=== PATIENT | female | born 1950 | race Caucasian/White ===

== ENCOUNTER 2016-11-13 16:24 | Emergency (ER) | payer MEDICARE, OTHER ==
[2016-11-13 16:43] VITALS: RESP 18
--- NOTE | 2016-11-13 17:01 | ED ---
[id number] 4d Ankle Injury Time Seen by Provider: 11/13/16 16:37 Source: patient, RN notes reviewed Mode of arrival: wheelchair Limitations: no limitations - History of Present Illness Initial comments: 65-year-old female presents today after a fall around 1 or 2 AM this morning. Patient states she did not feel dizzy or lose consciousness. Patient states she fell approximately "7 times "and hit her head. Patient states she now has a headache and has vomited twice since the fall. Patient states the only new medication she's been on is Macrobid. Patient also complains of headache and nausea. Patient denies any neck pain but states she has chronic back pain that is not worse after the fall. Patient also complains of left ankle pain. Patient has been able to bear some weight on the ankle but this is painful. Patient denies any numbness/weakness or tingling to the left lower extremity. Patient has noticed some swelling to the left lower extremity. Patient denies any recent fever, chills, shortness breath, chest pain, abdominal pain, diarrhea , back pain, numbness, tingling, hematuria, or visual changes, or any other complaints. - Related Data Home Medications Medication Instructions Recorded Confirmed Albuterol Inhaler [Ventolin Hfa 2 puff INHALATION RT-Q6H PRN 01/09/15 11/13/16 Inhaler] Gabapentin [Neurontin] 300 mg PO TID 01/09/15 11/13/16 Atorvastatin [Lipitor] 40 mg PO HS 03/14/16 11/13/16 Desvenlafaxine Succinate [Pristiq 50 mg PO DAILY 03/14/16 11/13/16 ER] amLODIPine [Norvasc] 5 mg PO DAILY 03/14/16 11/13/16 traZODone HCL 300 mg PO HS 03/14/16 11/13/16 Atenolol [Tenormin] 50 mg PO DAILY 11/13/16 11/13/16 Doxycycline Hyclate 100 mg PO BID 11/13/16 11/13/16 Isosorbide Mononitrate [Isosorbide 30 mg PO AC-BRKFST 11/13/16 11/13/16 Mononitrate ER] Nitrofurantoin Monohyd/M-Cryst 100 mg PO BID 11/13/16 11/13/16 [Nitrofurantoin Person-Mcr 100 mg] Potassium Gluconate 550 mg PO DAILY 11/13/16 11/13/16 predniSONE 10 mg PO AC-BRKFST 11/13/16 11/13/16 Previous Rx's Medication Instructions Recorded Omeprazole [PriLOSEC] 20 mg PO -BRKFST #60 capsule. 01/10/15 Aspirin 81 mg PO DAILY #1 chewable 07/23/15 Allergies Allergy/AdvReac Type Severity Reaction Status Date / Time cephalexin monohydrate Allergy Rash/Hives Verified 11/13/16 16:43 [From Keflex] ciprofloxacin [From Cipro] Allergy Swelling Verified 11/13/16 16:43 ciprofloxacin HCl Allergy Swelling Verified 11/13/16 16:43 [From Cipro] latex Allergy Rash/Hives Verified 11/13/16 16:43 oxytetracycline Allergy Rash/Hives Verified 11/13/16 16:43 [From Terramycin] oxytetracycline HCl Allergy Rash/Hives Verified 11/13/16 16:43 [From Terramycin] Penicillins Allergy Rash/Hives Verified 11/13/16 16:43 quetiapine fumarate Allergy Rash/Hives Verified 11/13/16 16:43 [From Seroquel] Sulfa (Sulfonamide Allergy Rash/Hives Verified 11/13/16 16:43 Antibiotics) Review of Systems ROS Statement: Those systems with pertinent positive or pertinent negative responses have been documented in the HPI. ROS Other: All systems not noted in ROS Statement are negative. 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 lt foot fx/casted. For past 7 weeks has had trouble falling/staying asleep.pt stated has short term memory loss and early dementia.meralgia paresthetica. 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 clausterphobia Past Psychological History: Anxiety, Depression Additional Psychological History / Comment(s): pt lives in [facility] with 1 cat. pt uses a wheeled walker or a cane.can drive but has no car so she takes the bus. used to get meals on wheels but stopped and [employer] sends someone to do house cleaning. pt has a counselor from [employer] that comes to home once a week. Smoking Status: Current every day smoker Past Alcohol Use History: None Reported Additional Past Alcohol Use History / Comment(s): started smoking at age 15 or 16 smokes 1ppd,declined smoking cessation booklet,stated said he would order a patch. pt stated used to drink but quit [id number] any recreational drug use past or present. Past Drug Use History: None Reported - Past Family History Mother Additional Family Medical History / Comment(s): was pretty healthy, did have varicose veins and" stem cell disease" Father Family Medical History: Congestive Heart Failure (CHF), Myocardial Infarction ( [place]) General Exam - General Exam Comments Initial Comments: General: The patient is awake and alert, in no distress, and does not appear acutely ill. Eye: Pupils are equal, round and reactive to light, extra-ocular movements are intact. No nystagmus. There is normal conjunctiva bilaterally. No signs of icterus. Neck: No cervical midline tenderness. The neck is supple, there is no tenderness or JVD. Cardiovascular: There is a regular rate and rhythm. No murmur, rub or gallop is appreciated. Respiratory: Faint wheezes heard throughout, respirations are non-labored, breath sounds are equal. No wheezes, stridor, rales, or rhonchi. Musculoskeletal: There is tenderness to palpation over the lateral and medial malleoli of the left ankle. There is localized swelling to this area as well. Patient is also tender to palpation over the lateral aspect of the left foot. Capillary refill is normal at less than 2 seconds. Normal ROM, Strength 5/5. Sensation intact. Radial and posterior tibial pulses equal bilaterally 2+. Neurological: A&O x 3. CN II-XII intact, There are no obvious motor or sensory deficits. Coordination appears grossly intact. Speech is normal. Skin: Localized swelling over the left ankle joint. Skin is warm and dry and no rashes or lesions are noted. Psychiatric: Cooperative, appropriate mood & affect, normal judgment. Limitations: no limitations Course Vital Signs 11/13/16 11/13/16 16:41 18:55 Temperature 97.7 F 98.7 F Pulse Rate 91 85 Respiratory 18 18 Rate Blood Pressure 174/79 146/69 O2 Sat by Pulse 95 98 Oximetry Medical Decision Making - Medical Decision Making This is a 65-year-old female presents after a fall. On physical exam, patient is neurologically intact. Patient is answering questions appropriately. There is tenderness to palpation over the lateral and medial malleoli of the left ankle. There is localized swelling to this area as well. Patient is also tender to palpation over the lateral aspect of the left foot. Capillary refill is normal at less than 2 seconds. Normal ROM, Strength 5/5. Sensation intact. Radial and posterior tibial pulses equal bilaterally 2+. A CT of the brain and C-spine were done due to complaints of nausea, vomiting and headache after a fall early this morning. CT was done and reviewed showing : #1 there is no acute fracture or dislocation evident in the cervical spine. #2 no acute intracranial hemorrhage, mass effect, or midline shift is seen. Reports read by Dr. Natarajan X-rays of the left foot and ankle were done and reviewed showing: X-ray left foot: Negative for fracture or malalignment. X-ray left ankle: Negative for fracture or malalignment. Reports read by Dr. Natarajan I reviewed the x-rays myself along with attending physician Dr. Reza and there is no sign of fracture or dislocation. Patient is given an Abran wrap in the EC today. Patient was given a prescription for an Aircast to the left lower extremity. Discussed rest, ice, elevate and use Aircast for support while up and walking. I discussed [id number] Tylenol and or Motrin as needed for any pain. I discussed return parameters. I discussed close follow-up with pcp in the next 1 -2 days or return to the EC for any worsening symptoms or for any further concerns. If symptoms do not improve in the next 7 days please follow up for repeat x-ray to rule out occult fracture.Patient and friend who was also present in the room were receptive to this plan the patient will be discharged home. Disposition Clinical Impression: Ankle sprain, Head injury Disposition: HOME SELF-CARE Condition: Good Instructions: Ankle Sprain (ED) Additional Instructions: Please rest, ice, elevate and use air cast for support while up and walking. Weightbearing as tolerated to the left lower extremity. Over the counter tylenol and/or Motrin as needed for any pain. Please use medication as discussed. Please follow-up with family doctor in the next 2 days of symptoms have not improved. Please return to emergency room if the symptoms increase or worsen or for any other concerns. Referrals: Kristy Aceves MD [Primary Care Provider] - 1-2 days Time of Disposition: 18:44
--- NOTE | 2016-11-13 17:59 | CT ---
EXAMINATION TYPE: CT brain daily wo con DATE OF EXAM: 11/13/2016 5:35 PM COMPARISON: NONE HISTORY: Patient complains of headache, dizziness, nausea, and vomit ting post fall today. CT DLP: 1167.1 mGycm Automated exposure control for dose reduction was used. TECHNIQUE: CT scan of the head and cervical spine are performed without contrast. FINDINGS: There is no acute intracranial hemorrhage, mass effect, or midline shift identified. The ventricles and sulci are within normal limits in size. The globes are intact and the visualized sin uses are clear. Cervical spine is visualized in its entirety from C1 through upper thoracic levels and demonstrates s atisfactory alignment without evidence of acute fracture or dislocation. Prevertebral soft tissue ap pears within normal limits. The C1-C2 articulation is unremarkable. IMPRESSION: 1. There is no acute fracture or dislocation evident in the cervical spine. 2. No acute intracranial hemorrhage, mass effect, or midline shift is seen.
[2016-11-13 18:55] VITALS: BP 146/69; PULSE 85; TEMP 98.7
--- NOTE | 2016-11-13 19:12 | XR ---
EXAMINATION TYPE: XR foot complete LT DATE OF EXAM: 11/13/2016 5:23 PM COMPARISON: NONE HISTORY: Pain after trauma TECHNIQUE: 3 views FINDINGS: The bones and joints and soft tissues are negative for acute findings. IMPRESSION: Negative for fracture or malalignment.
--- NOTE | 2016-11-13 19:13 | XR ---
EXAMINATION TYPE: XR ankle complete LT DATE OF EXAM: 11/13/2016 5:23 PM COMPARISON: NONE HISTORY: Pain after trauma TECHNIQUE: 3 views FINDINGS: There is anterolateral soft tissue swelling, but the bones and joints are unremarkable. IMPRESSION: Negative for fracture or malalignment.
== END 2016-11-13 18:56 | disposition home or self-care (01) ==
LOC: EC 16:24
DX: S09.90XA Unspecified injury of head, initial encounter (principal); S93.402A Sprain of unspecified ligament of left ankle, initial encounter; W19.XXXA Unspecified fall, initial encounter; I48.91 Unspecified atrial fibrillation; M79.7 Fibromyalgia; M17.0 Bilateral primary osteoarthritis of knee; F32.9 Major depressive disorder, single episode, unspecified; Z79.82 Long term (current) use of aspirin; Z79.899 Other long term (current) drug therapy; Z79.52 Long term (current) use of systemic steroids; Z88.0 Allergy status to penicillin; Z88.2 Allergy status to sulfonamides; Z88.8 Allergy status to other drugs, medicaments and biological substances; Z88.1 Allergy status to other antibiotic agents; Z91.040 Latex allergy status; F17.200 Nicotine dependence, unspecified, uncomplicated
CPT/HCPCS: 70450; 72125; 99284

== ENCOUNTER → 2017-01-11 | Outpatient (CLI) | payer MEDICARE, OTHER ==
[2017-01-11 12:42] LABS: Basophils # (A) 0.2 k/uL (0-0.2); Basophils % (A) 2 %; CH 28.6; CHCM 33.3; Eosinophils % (A) 0 %; HDW 2.96; HGB 12.7 gm/dL (11.4-16.0); Luc % (Auto) 1; Lymphocytes # (A) 1.5 k/uL (1.0-4.8); Lymphocytes % (A) 18 %; MCH 28.7 pg (25.0-35.0); MCHC 33.3 g/dL (31.0-37.0); MCV 86.2 fL (80.0-100.0); Mean Platelet Volume 8.4; Monocytes # (A) 0.4 k/uL (0-1.0); Monocytes % (A) 4 %; Neutrophils # (A) 6.3 k/uL (1.3-7.7); Neutrophils % (A) 75 %; RBC 4.41 m/uL (3.80-5.40); RDW 14.1 % (11.5-15.5); WBC 8.4 k/uL (3.8-10.6); WBC (Perox) 8.86
[2017-01-11 12:48] LABS: ALT 29 U/L (9-52); AST 13 U/L (14-36); Alkaline Phosphatase 86 U/L (38-126); Anion Gap 8 mmol/L; Blood Urea Nitrogen 20 mg/dL (7-17); Calcium 9.7 mg/dL (8.4-10.2); Carbon Dioxide 27 mmol/L (22-30); Chloride 107 mmol/L (98-107); Glucose 100 mg/dL (74-99); Non-African American GFR(MDRD) 55 (>60 ml/min/1.73 sqM); Potassium 4.3 mmol/L (3.5-5.1); Sodium 142 mmol/L (137-145); Total Bilirubin 0.9 mg/dL (0.2-1.3); Total Protein 6.4 g/dL (6.3-8.2)
--- NOTE | 2017-01-12 08:45 | MM ---
Reason for exam: screening (asymptomatic). Last mammogram was performed 12 years and 9 months ago. History: Patient is postmenopausal. Physical Findings: A clinical breast exam by your physician is recommended on an annual basis and results should be correlated with mammographic findings. MG 3D Screening Mammo W/Cad Bilateral CC and MLO view(s) were taken. No prior studies available for comparison. There are scattered fibroglandular densities. There is no discrete abnormality. ASSESSMENT: Negative, BI-RAD 1 RECOMMENDATION: Routine screening mammogram of both breasts in 1 year.
== END | disposition home or self-care (01) ==
LOC: LABWHC1 11:01
PROVIDERS: ATTEND Internal Medicine
DX: Z12.31 Encounter for screening mammogram for malignant neoplasm of breast (principal); Z00.00 Encounter for general adult medical examination without abnormal findings
CPT/HCPCS: 80053; 85025; 77063; 36415; G0202

== ENCOUNTER → 2017-01-15 | Outpatient (CLI) | payer MEDICARE, OTHER | LOC: LABWHC1 10:40 | PROVIDERS: ATTEND Internal Medicine | DX: Z00.00 Encounter for general adult medical examination without abnormal findings (principal) | CPT/HCPCS: 36415; 80061; 84443 ==

== ENCOUNTER 2017-04-18 01:56 | Emergency (ER) | payer MEDICARE, OTHER ==
[2017-04-18 02:04] VITALS: BP 133/63; PULSE 87; RESP 18; TEMP 98.5
--- NOTE | 2017-04-18 02:23 | ED ---
Female Urogenital HPI - General Chief complaint: Vaginal Bleeding Stated complaint: Rectal bleeding Time Seen by Provider: 04/18/17 02:01 Source: EMS, RN notes reviewed Mode of arrival: EMS Limitations: no limitations - History of Present Illness Initial comments: 66-year-old male presents for a abscess to the groin area. Patient states she' s had it for a day or 2 now and today she noticed that there is bright red blood from the area so she was concerned. Patient denies any fever chills cough cold runny nose. Patient states tender to touch. Patient denies any history of this before. Patient denies any falls traumas or injuries. Patient states she was concerned due to her symptoms so she thought that she should be seen. Patient denies any recent fever, chills, shortness of breath, chest pain, back pain, abdominal pain, nausea vomiting, numbness or tingling, dysuria or hematuria, constipation or diarrhea, headaches or visual changes, or any other current symptoms. - Related Data Home Medications Medication Instructions Recorded Confirmed Albuterol Inhaler [Ventolin Hfa 2 puff INHALATION RT-Q6H PRN 01/09/15 11/13/16 Inhaler] Gabapentin [Neurontin] 300 mg PO TID 01/09/15 11/13/16 Atorvastatin [Lipitor] 40 mg PO HS 03/14/16 11/13/16 Desvenlafaxine Succinate [Pristiq 50 mg PO DAILY 03/14/16 11/13/16 ER] amLODIPine [Norvasc] 5 mg PO DAILY 03/14/16 11/13/16 traZODone HCL 300 mg PO HS 03/14/16 11/13/16 Atenolol [Tenormin] 50 mg PO DAILY 11/13/16 11/13/16 Doxycycline Hyclate 100 mg PO BID 11/13/16 11/13/16 Isosorbide Mononitrate [[facility] [address] [facility] 11/13/16 11/13/16 Mononitrate ER] Nitrofurantoin Monohyd/M-Cryst 100 mg PO BID 11/13/16 11/13/16 [Nitrofurantoin Saunders-Mcr 100 mg] Potassium Gluconate 550 mg PO DAILY 11/13/16 11/13/16 predniSONE 10 mg PO -BRKFST 11/13/16 11/13/16 Previous Rx's Medication Instructions Recorded Omeprazole [PriLOSEC] 20 mg PO QUEBRKFST #60 capsule. 01/10/15 Aspirin 81 mg PO DAILY #1 chewable 07/23/15 Clindamycin [Cleocin] 300 mg PO Q8HR 7 Days 04/18/17 Allergies Allergy/AdvReac Type Severity Reaction Status Date / Time cephalexin monohydrate Allergy Rash/Hives Verified 11/13/16 16:43 [From Keflex] ciprofloxacin [From Cipro] Allergy Swelling Verified 11/13/16 16:43 ciprofloxacin HCl Allergy Swelling Verified 11/13/16 16:43 [From Cipro] latex Allergy Rash/Hives Verified 11/13/16 16:43 oxytetracycline Allergy Rash/Hives Verified 11/13/16 16:43 [From Terramycin] oxytetracycline HCl Allergy Rash/Hives Verified 11/13/16 16:43 [From Terramycin] Penicillins Allergy Rash/Hives Verified 11/13/16 16:43 quetiapine fumarate Allergy Rash/Hives Verified 11/13/16 16:43 [From Seroquel] Sulfa (Sulfonamide Allergy Rash/Hives Verified 11/13/16 16:43 Antibiotics) Review of Systems ROS Statement: Those systems with pertinent positive or pertinent negative responses have been documented in the HPI. ROS Other: All systems not noted in ROS Statement are negative. 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 lt foot fx/casted. For past 7 weeks has had trouble falling/staying asleep.pt stated has short term memory loss and early dementia.meralgia paresthetica. 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 clausterphobia Past Psychological History: Anxiety, Depression Additional Psychological History / Comment(s): [facility]. pt uses a wheeled walker or a cane.can drive but has no car so she takes the bus. used to get meals on wheels but stopped and [employer] [facility] [employer] sends someone to do house cleaning. pt has a counselor from [employer] that comes to home once a week. Smoking Status: Current every day smoker Past Alcohol Use History: None Reported Additional Past Alcohol Use History / Comment(s): started smoking at age 15 or 16 smokes 1ppd,declined smoking cessation booklet,stated dr said he would order a patch. pt stated used to drink but quit [id number] any recreational drug use past or present. Past Drug Use History: None Reported - Past Family History Mother Additional Family Medical History / Comment(s): was pretty healthy, did have varicose veins and" stem cell disease" Father Family Medical History: Congestive Heart Failure (CHF), Myocardial Infarction ( [place]) General Exam Limitations: no limitations General appearance: alert, in no apparent distress Eye exam: Present: normal appearance, PERRL, EOMI. Absent: scleral icterus, conjunctival injection, periorbital swelling ENT exam: Present: normal exam, mucous membranes moist Respiratory exam: Present: normal lung sounds bilaterally. Absent: respiratory distress, wheezes, rales, rhonchi, stridor Cardiovascular Exam: Present: regular rate, normal rhythm, normal heart sounds. Absent: systolic murmur, diastolic murmur, rubs, gallop, clicks GI/Abdominal exam: Present: soft, normal bowel sounds. Absent: distended, tenderness, guarding, rebound, rigid External exam: Present: lesions (Abscess to the left lower labia.). Absent: erythema, swelling Extremities exam: Present: normal inspection, full ROM, normal capillary refill. Absent: tenderness, pedal edema, joint swelling, calf tenderness Neurological exam: Present: alert, oriented X3 Psychiatric exam: Present: normal affect, normal mood Skin exam: Present: warm, dry, intact, normal color. Absent: rash Course Vital Signs 04/18/17 01:58 Temperature 98.5 F Pulse Rate 87 Respiratory 18 Rate Blood Pressure 133/63 O2 Sat by Pulse 96 Oximetry Procedures - Procedures Initial comment: Procedure: Incision and drainage The skin overlying the abscess was prepped with Betadine, and anesthetized with 1% lidocaine without epinephrine. A #11 scalpel was then used to incise the abscess. Some purulent material was then extracted from the lesion. Gauze dressing placed on top, The patient tolerated the procedure well. Medical Decision Making - Medical Decision Making 66-year-old female presents for abscess to left flank area. This time patient underwent I&D of the area. We will start her on antibiotics. discussed Close follow-up with her Dr. return parameters and all the questions. She stated that she understood and she is in agreement with plan. This time she will be discharged home. Disposition Clinical Impression: Labial abscess Disposition: HOME SELF-CARE Condition: Stable Instructions: Abscess (ED) Additional Instructions: Please use medication as discussed. Please follow up with family doctor if symptoms have not improved over the next two days. Please return to the emergency room if your symptoms increase or worsen or for any other concerns. Prescriptions: Clindamycin [Cleocin] 300 mg PO Q8HR 7 Days Referrals: Yandy Brito MD [Primary Care Provider] - 1-2 days Time of Disposition: 02:22
[2017-04-18] MEDS ORDERED: CLINDAMYCIN 150 MG CAP PO STA (02:24)
== END 2017-04-18 02:46 | disposition home or self-care (01) ==
LOC: EC 01:56
DX: N76.4 Abscess of vulva (principal); F32.9 Major depressive disorder, single episode, unspecified; F17.200 Nicotine dependence, unspecified, uncomplicated; Z90.49 Acquired absence of other specified parts of digestive tract; Z88.1 Allergy status to other antibiotic agents; Z88.2 Allergy status to sulfonamides; Z88.0 Allergy status to penicillin; Z91.040 Latex allergy status; Z88.8 Allergy status to other drugs, medicaments and biological substances; Z79.899 Other long term (current) drug therapy
CPT/HCPCS: 56405; 99284

== ENCOUNTER → 2017-06-14 | Outpatient (CLI) | payer MEDICARE, OTHER ==
--- NOTE | 2017-06-15 17:09 | ECHOF ---
Referral Reason:Pericardial Effusion I31.3 MEASUREMENTS -------- HEIGHT: 165.1 cm WEIGHT: 90.3 kg BP: RVIDd: 2.5 cm (< 3.3) IVSd: 1.4 cm (0.6 - 1.1) LVIDd: 3.8 cm (3.9 - 5.3) LVPWd: 1.4 cm (0.6 - 1.1) IVSs: 1.9 cm LVIDs: 2.9 cm LVPWs: 1.9 cm LAESV Index (A-L): 11.08 ml/m Ao Diam: 2.7 cm (2.0 - 3.7) AV Cusp: 0.9 cm (1.5 - 2.6) LA Diam: 2.3 cm (2.7 - 3.8) MV E Kaleb: 1.50 m/s MV DecT: 299 ms MV A Kaleb: 0.98 m/s MV E/A Ratio: 1.54 RAP: 5.00 mmHg RVSP: 24.59 mmHg FINDINGS -------- Resting bradycardia (HR<60bpm). This was a technically difficult study with suboptimal views. Patient refused Definity. There is mild concentric left ventricular hypertrophy. Overall left ventricular systolic function is normal with, an EF between 60 - 65 %. The right ventricle is normal in size and function. Normal LA size by volume 22+/-6 ml/m2. The right atrium is normal in size. Aortic valve is trileaflet and is mildly thickened. There is no evidence of aortic regurgitation. There is no evidence of aortic stenosis. Mild mitral annular calcification present. There is trace to mild mitral regurgitation. Trace tricuspid regurgitation present. There is no evidence of pulmonary hypertension. The right ventricular systolic pressure, as measured by Doppler, is 24.59mmHg. The pulmonic valve was not well visualized. The aortic root size is normal. Normal inferior vena cava with normal inspiratory collapse consistent with estimated right atrial pressure of 5 mmHg. There is a trivial pericardial effusion present. CONCLUSIONS -------- 1. Resting bradycardia (HR<60bpm). 2. The right ventricular systolic pressure, as measured by Doppler, is 24.59mmHg. 3. The pulmonic valve was not well visualized. 4. The aortic root size is normal. 5. There is a trivial pericardial effusion present. 6. This was a technically difficult study with suboptimal views. 7. Patient refused Definity due to pain. 8. There is mild concentric left ventricular hypertrophy. 9. Overall left ventricular systolic function is normal with, an EF between 60 - 65 %. 10. Normal LA size by volume 22+/-6 ml/m2. 11. Aortic valve is trileaflet and is mildly thickened. 12. Trace tricuspid regurgitation present. 13. There is no evidence of pulmonary hypertension. COMPUTING CONSULTANT: Jt Pedroza RDCS
== END | disposition home or self-care (01) ==
LOC: RADECHMAIN 15:14
PROVIDERS: ATTEND Internal Medicine
DX: I31.3 Pericardial effusion (noninflammatory) (principal); R00.1 Bradycardia, unspecified; I07.1 Rheumatic tricuspid insufficiency
CPT/HCPCS: 93306

== ENCOUNTER 2017-08-11 20:09 | Emergency (ER) | payer MEDICARE, OTHER ==
[2017-08-11] MEDS ORDERED: IPRATROPIUM-ALBUTEROL 3 ML NEB INHALATION STA (20:17)
[2017-08-11] MEDS ORDERED: methylPREDNISolone SOD SUCCI 125 MG/2 ML VIAL IV STA (20:18)
[2017-08-11] MEDS ORDERED: SODIUM CHLORIDE 0.9% 500 ML IV STA (20:22)
--- NOTE | 2017-08-11 20:22 | ED ---
Chest Pain HPI - General Chief Complaint: Chest Pain Stated Complaint: Chest Pain Time Seen by Provider: 08/11/17 20:09 Source: patient, EMS, RN notes reviewed, old records reviewed Mode of arrival: EMS Limitations: no limitations - History of Present Illness Initial Comments: This is a 66-year-old female history of heart disease stroke and chronic bronchitis who presents by EMS with complaints of the onset of intermittent right-sided chest pain about 6 hours ago. She states is been on off since then is sharp in nature. It does get worse with deep breathing and movement. She did take 2 nitroglycerin at home without relief she was given nitroglycerin as well as aspirin by EMS without relief. She does have a chronic cough of some slight phlegm she denies any overt fevers chills or sweats. No other symptoms reported at this time. Patient is a smoker and continues to smoke. Patient does state that the pain radiates from the right chest to the back area. MD Complaint: chest pain - Related Data Home Medications Medication Instructions Recorded Confirmed Albuterol Inhaler [Ventolin Hfa 2 puff INHALATION RT-Q6H PRN 01/09/15 11/13/16 Inhaler] Gabapentin [Neurontin] 300 mg PO TID 01/09/15 11/13/16 Atorvastatin [Lipitor] 40 mg PO HS 03/14/16 11/13/16 Desvenlafaxine Succinate [Pristiq 50 mg PO DAILY 03/14/16 11/13/16 ER] amLODIPine [Norvasc] 5 mg PO DAILY 03/14/16 11/13/16 traZODone HCL 300 mg PO HS 03/14/16 11/13/16 Atenolol [Tenormin] 50 mg PO DAILY 11/13/16 11/13/16 Doxycycline Hyclate 100 mg PO BID 11/13/16 11/13/16 Isosorbide Mononitrate [Isosorbide 30 mg PO -BRKFST 11/13/16 11/13/16 Mononitrate ER] Nitrofurantoin Monohyd/M-Cryst 100 mg PO BID 11/13/16 11/13/16 [Nitrofurantoin [place]-Mcr 100 mg] Potassium Gluconate 550 mg PO DAILY 11/13/16 11/13/16 predniSONE 10 mg PO AC-BRKFST 11/13/16 11/13/16 Previous Rx's Medication Instructions Recorded Omeprazole [PriLOSEC] 20 mg PO AC-BRKFST #60 capsule. 01/10/15 Aspirin 81 mg PO DAILY #1 chewable 07/23/15 Clindamycin [Cleocin] 300 mg PO Q8HR 7 Days 04/18/17 predniSONE 20 mg PO BID #10 tab 08/11/17 Allergies Allergy/AdvReac Type Severity Reaction Status Date / Time cephalexin monohydrate Allergy Rash/Hives Verified 08/11/17 20:18 [From Keflex] ciprofloxacin [From Cipro] Allergy Swelling Verified 08/11/17 20:18 latex Allergy Rash/Hives Verified 08/11/17 20:18 oxytetracycline Allergy Rash/Hives Verified 08/11/17 20:18 [From Terramycin] Penicillins Allergy Rash/Hives Verified 08/11/17 20:18 quetiapine fumarate Allergy Rash/Hives Verified 08/11/17 20:18 [From Seroquel] Sulfa (Sulfonamide Allergy Rash/Hives Verified 08/11/17 20:18 Antibiotics) Review of Systems ROS Statement: Those systems with pertinent positive or pertinent negative responses have been documented in the HPI. ROS Other: All systems not noted in ROS Statement are negative. EKG Findings - EKG Results: EKG: interpreted by DANG, sinus rhythm (Sinus tachycardia with a rate of 118. Interval 146 QRS duration 84 QT since QTC of 332/[address] T-wave configuration.) Past Medical History Past Medical History: Atrial Fibrillation, Dementia, Fibromyalgia, Memory Impairment, Osteoarthritis (OA) Additional Past Medical History / Comment(s): hiatal hernia, osteoporsis, ostoearthritis in knees and hip,neuropathy, headaches; PT STATES SHE DOES HAVE A HX OF AFIB BUT DENIES TAKING ANY COUMADIN OR BLOOD THINNERS AT THIS TIME. lt foot fx/casted. For past 7 weeks has had trouble falling/staying asleep.pt stated has short term memory loss and early dementia.meralgia paresthetica. 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 clausterphobia Past Psychological History: Anxiety, Depression Smoking Status: Current every day smoker Past Alcohol Use History: None Reported Past Drug Use History: None Reported - Past Family History Mother Additional Family Medical History / Comment(s): was pretty healthy, did have varicose veins and" stem cell disease" Father Family Medical History: Congestive Heart Failure (CHF), Myocardial Infarction ( [place]) General Exam - General Exam Comments Initial Comments: This is a well-developed well-nourished awake alert oriented 3 female Limitations: no limitations General appearance: alert, in no apparent distress Head exam: Present: atraumatic, normocephalic, normal inspection Eye exam: Present: normal appearance, PERRL, EOMI. Absent: scleral icterus, conjunctival injection, periorbital swelling ENT exam: Present: normal exam, mucous membranes moist Neck exam: Present: normal inspection. Absent: tenderness, meningismus, lymphadenopathy Respiratory exam: Present: chest wall tenderness (Reproducible tenderness palpation along the right costosternal margin), decreased breath sounds. Absent : respiratory distress, wheezes, rales, rhonchi, stridor Cardiovascular Exam: Present: regular rate, normal rhythm, normal heart sounds. Absent: systolic murmur, diastolic murmur, rubs, gallop, clicks GI/Abdominal exam: Present: soft, normal bowel sounds. Absent: distended, tenderness, guarding, rebound, rigid Extremities exam: Present: normal inspection, full ROM, normal capillary refill. Absent: tenderness, pedal edema, joint swelling, calf tenderness Back exam: Present: normal inspection Neurological exam: Present: alert, oriented X3, CN II-XII intact Psychiatric exam: Present: normal affect, normal mood Skin exam: Present: warm, dry, intact, normal color. Absent: rash Course Vital Signs 08/11/17 08/11/17 08/11/17 20:15 20:23 20:36 Temperature 97.6 F Pulse Rate 122 H 117 H 115 H Respiratory 20 16 16 Rate Blood Pressure 155/89 O2 Sat by Pulse 96 Oximetry 08/11/17 21:09 Temperature Pulse Rate Respiratory 20 Rate Blood Pressure O2 Sat by Pulse Oximetry - Reevaluation(s) Reevaluation #1: 08/11/17 20:29 I did review an EKG dated 03/15/2016 syncope. States today is some evidence of strain pattern in the inferior and lateral leads. Reevaluation #2: 08/11/17 21:08 We did have a discussion regarding smoking cessation and risks and benefits thereof. The total conversation lasting 3.1 minutes Chest Pain MDM - MDM I did review the imaging and reports no acute findings. Patient is so much improved at this time she does states she normally has a fast heart rate a heart rate she currently has is in her normal range she states. She'll be discharged she does have an inhaler at home she states she did adamantly to be using it today she will be placed on some oral steroids. Disposition Clinical Impression: Chest wall syndrome, Costalchondritis, Acute bronchospasm Disposition: HOME SELF-CARE Condition: Good Instructions: Costochondritis (ED), Bronchospasm (ED) Prescriptions: predniSONE 20 mg PO BID #10 tab Referrals: Yandy Brito MD [Primary Care Provider] - 1-2 days
[2017-08-11 20:30] LABS: Basophils % (A) 0 %; CH 29.4; CHCM 34.3; Eosinophils % (A) 0 %; HCT 45.6 % (34.0-46.0); HDW 2.83; HGB 14.6 gm/dL (11.4-16.0); Luc # (Auto) 0.05; Luc % (Auto) 1; Lymphocytes # (A) 1.4 k/uL (1.0-4.8); Lymphocytes % (A) 18 %; MCH 27.6 pg (25.0-35.0); MCV 86.1 fL (80.0-100.0); Mean Platelet Volume 8.3; Monocytes # (A) 0.4 k/uL (0-1.0); Monocytes % (A) 5 %; Neutrophils # (A) 6.1 k/uL (1.3-7.7); Neutrophils % (A) 77 %; RBC 5.29 m/uL (3.80-5.40); WBC (Perox) 7.79
[2017-08-11 20:43] LABS: ALT 27 U/L (9-52); AST 14 U/L (14-36); Alkaline Phosphatase 91 U/L (38-126); Anion Gap 13 mmol/L; Blood Urea Nitrogen 19 mg/dL (7-17); Calcium 9.8 mg/dL (8.4-10.2); Carbon Dioxide 23 mmol/L (22-30); Chloride 104 mmol/L (98-107); Glucose 163 mg/dL (74-99); Magnesium 1.8 mg/dL (1.6-2.3); Non-African American GFR(MDRD) >60 (>60 ml/min/1.73 sqM); Potassium 3.9 mmol/L (3.5-5.1); Sodium 140 mmol/L (137-145); Total Bilirubin 0.8 mg/dL (0.2-1.3)
[2017-08-11 20:44] LABS: INR 1.1 (<1.2); Partial Thromboplastin Time 23.6 sec (22.0-30.0); Prothrombin Time 10.7 sec (9.0-12.0)
[2017-08-11 20:49] LABS: Creatine Kinase 23 U/L (30-135)
[2017-08-11 21:02] LABS: Creatine Kinase MB 0.4 ng/mL (0.0-2.4); Troponin I <0.012 ng/mL (0.000-0.034)
--- NOTE | 2017-08-11 21:15 | XR ---
EXAMINATION TYPE: XR chest 2V DATE OF EXAM: 08/11/2017 COMPARISON: 03/14/2016 INDICATION: Chest pain TECHNIQUE: Frontal and lateral views of the chest are obtained. FINDINGS: The heart size is normal. The pulmonary vasculature is normal. The lungs are clear. IMPRESSION: 1. No acute pulmonary process.
[2017-08-11 21:39] VITALS: BP 167/75; PULSE 111; RESP 18; TEMP 98
== END 2017-08-11 21:49 | disposition home or self-care (01) ==
LOC: EC 20:09
DX: J98.01 Acute bronchospasm (principal); M94.0 Chondrocostal junction syndrome [Tietze]; M54.9 Dorsalgia, unspecified; M79.7 Fibromyalgia; M17.0 Bilateral primary osteoarthritis of knee; M16.10 Unilateral primary osteoarthritis, unspecified hip; F32.9 Major depressive disorder, single episode, unspecified; F41.9 Anxiety disorder, unspecified; F17.200 Nicotine dependence, unspecified, uncomplicated; Z79.52 Long term (current) use of systemic steroids; Z79.899 Other long term (current) drug therapy; Z88.0 Allergy status to penicillin; Z88.1 Allergy status to other antibiotic agents; Z88.2 Allergy status to sulfonamides; Z88.8 Allergy status to other drugs, medicaments and biological substances
CPT/HCPCS: 99285; 96374; 36415; 94640; 93005; 85379; 83880; 80053; 82550; 82553; 83735; 84484; 85025; 85610; 85730; 71020; J2930

== ENCOUNTER 2017-09-25 13:06 | Emergency (ER) | payer MEDICARE, OTHER ==
[2017-09-25 13:11] VITALS: RESP 18
[2017-09-25] MEDS ORDERED: ACETAMINOPHEN TAB 500 MG TAB PO STA (14:12)
[2017-09-25] MEDS ORDERED: MORPHINE SULFATE 10 MG/ML SYRINGE IVP STA (14:13)
[2017-09-25] MEDS ORDERED: ONDANSETRON 4 MG/2 ML VIAL IVP STA (14:13)
[2017-09-25] MEDS ORDERED: RX INFO: IV CONTRAST WAS GIVEN 1 EACH MISC MISCELLANE PRN (14:13)
--- NOTE | 2017-09-25 14:18 | ED ---
Abdominal Pain HPI - General Chief Complaint: Abdominal Pain Stated Complaint: abd.pain Time Seen by Provider: 09/25/17 14:01 Source: EMS Mode of arrival: EMS Limitations: no limitations - History of Present Illness Initial Comments: This is a 66-year-old female with a history of atrial fibrillation, CVA, hypertension and multiple other comorbidities who presents emergency department for generalized abdominal pain. She states that the pain has been going on for the last month however seem to worsen over the last few days. She describes the pain is lower and generalized. Nothing seems to make it better however states it seems to be worse when she is up moving around. She states that she' s had associated nausea with vomiting. No blood in the emesis. No blood in the stool. She is not constipated or having any diarrhea. Her last bowel movement was just before coming to the emergency department. The patient was recently diagnosed with atrial fibrillation. She states that she was given 2 medications at discharge that she states she has been taking however is unsure of what they're called. She does admit to feeling feverish over the last couple of days. No cough or shortness of breath. No chest pain. No headaches. No dysuria or hematuria. No other complaints. - Related Data Home Medications Medication Instructions Recorded Confirmed Albuterol Inhaler [Ventolin Hfa 2 puff INHALATION RT-Q6H PRN 01/09/15 09/25/17 Inhaler] Gabapentin [Neurontin] 300 mg PO TID 01/09/15 09/25/17 Atenolol [Tenormin] 50 mg PO DAILY 11/13/16 09/25/17 Isosorbide Mononitrate [Isosorbide 30 mg PO DAILY 11/13/16 09/25/17 Mononitrate ER] Albuterol Nebulized [Ventolin 2.5 mg INHALATION RT-TID PRN 09/06/17 09/25/17 Nebulized] Loperamide HCl [Imodium A-D] 2 mg PO QID PRN 09/06/17 09/25/17 Omeprazole [Omeprazole] 20 mg PO DAILY 09/06/17 09/25/17 Sinus Medication (Unknown Otc) 1 tab PO Q6H PRN 09/06/17 09/25/17 Umeclidinium [place] [Incruse 1 puff INHALATION RT-DAILY 09/06/17 09/25/17 Ellipta] Atorvastatin [Lipitor] 20 mg PO DAILY 09/25/17 09/25/17 Mirtazapine [Remeron] 15 mg PO HS 09/25/17 09/25/17 Previous Rx's Medication Instructions Recorded Apixaban [Eliquis] 5 mg PO BID #60 tab 09/07/17 Diltiazem Cd [Cardizem CD] 180 mg PO DAILY #30 cap.er.24h 09/07/17 Acetaminophen-Codeine 300-30mg 1 tab PO Q6H PRN #12 tablet 09/25/17 [Tylenol #3] Ondansetron Odt [Zofran Odt] 4 mg PO Q8HR PRN #12 tab 09/25/17 Allergies Allergy/AdvReac Type Severity Reaction Status Date / Time atorvastatin [From Lipitor] Allergy Unknown Verified 09/25/17 13:11 cephalexin monohydrate Allergy Rash/Hives Verified 09/25/17 13:11 [From Keflex] ciprofloxacin [From Cipro] Allergy Swelling Verified 09/25/17 13:11 latex Allergy Rash/Hives Verified 09/25/17 13:11 oxytetracycline Allergy Rash/Hives Verified 09/25/17 13:11 [From Terramycin] Penicillins Allergy Rash/Hives Verified 09/25/17 13:11 quetiapine fumarate Allergy Rash/Hives Verified 09/25/17 13:11 [From Seroquel] Sulfa (Sulfonamide Allergy Rash/Hives Verified 09/25/17 13:11 Antibiotics) Review of Systems ROS Statement: Those systems with pertinent positive or pertinent negative responses have been documented in the HPI. ROS Other: All systems not noted in ROS Statement are negative. 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 Past Anesthesia/Blood Transfusion Reactions: Previous Problems w/ Anesthesia Additional Past Anesthesia/Blood Transfusion Reaction / Comment(s): difficulty waking in past. clausterphobia Past Psychological History: Anxiety, Depression Smoking Status: Current every day smoker Past Alcohol Use History: None Reported Past Drug Use History: None Reported - Past Family History Mother Additional Family Medical History / Comment(s): Mother at age 73 from a brain stem stroke. Brother(s) Additional Family Medical History / Comment(s): Patient has 2 full brothers with no major medical problems. Patient does not have any sisters. Patient has 3 sons with no major medical problems. Father Family Medical History: Congestive Heart Failure (CHF), Myocardial Infarction ( [place]) Additional Family Medical History / Comment(s): Father at age 76 from a massive heart attack. General Exam - General Exam Comments Initial Comments: Constitutional: Awake alert appears mildly uncomfortable lying on her left side Head: Normocephalic atraumatic Eyes: no conjunctival injection No scleral icterus EOMI Neck: No JVD Supple Heart: Tachycardic normal S1-S2 no murmurs Lungs: There is trace expiratory wheezes bilaterally [No rales] bomen: [Sft] [nonditenddthere is tenderness to palpation throughout the entire abdomen without rebound or guarding. The tenderness seems to be worse in the epigastric and right lower quadrantEtremities [Non edematou] [DP pulses nact] [ Radial pule intact] Neuro: [A&O3] [No fcal nuologic deficits] Psych: [Appopriate ood and affect] Limitations: no limitations Course Vital Signs 09/25/17 09/25/17 13:09 16:41 Temperature 100.1 F H 98.0 F Pulse Rate 80 78 Respiratory 18 18 Rate Blood Pressure 130/86 129/80 O2 Sat by Pulse 95 98 Oximetry - Reevaluation(s) Reevaluation #1: 09/25/17 14:42 EKG is showing sinus bradycardia with a rate of 50. No abnormal ST-T segment changes. There is a T-wave inversion in V2. The patient does have an sinus arrhythmia however no signs of atrial fibrillation. QTC is 426. Other intervals normal. No ectopy. 09/25/17 14:42 Medical Decision Making - Medical Decision Making This is a 66-year-old female who presents emergency report for abdominal pain. She was noted to have a low-grade temperature and tachycardia on arrival however EKG was unremarkable and showed sinus bradycardia. had no leukocytosis. The rest her blood work was reviewed and unremarkable. Computed tomography scan did not show any acute changes. The patient was improved after medications. This time I feel the patient can go home. She is close follow-up with her primary doctor and her GI doctor to get a endoscopic performed. She' ll return emergency Department if she has worsening or changing symptoms. All questions were answered. - Lab Data Result diagrams: 09/25/17 13:15 09/25/17 13:15 Lab Results 09/25/17 09/25/17 09/25/17 Range/Units 13:15 13:15 13:15 WBC 10.8 H (3.8-10.6) k/uL RBC 4.17 (3.80-5.40) m/uL Hgb 11.7 (11.4-16.0) gm/dL Hct 36.3 (34.0-46.0) % MCV 87.0 (80.0-100.0) fL MCH 28.0 (25.0-35.0) pg MCHC 32.3 (31.0-37.0) g/dL RDW 14.5 (11.5-15.5) % Plt Count 335 D (150-450) k/uL Neutrophils % 82 % Lymphocytes % 11 % Monocytes % 5 % Eosinophils % 0 % Basophils % 0 % Neutrophils # 8.8 H (1.3-7.7) k/uL Lymphocytes # 1.2 (1.0-4.8) k/uL Monocytes # 0.5 (0-1.0) k/uL Eosinophils # 0.0 (0-0.7) k/uL Basophils # 0.0 (0-0.2) k/uL Hypochromasia Slight PT (9.0-12.0) sec INR (<1.2) APTT (22.0-30.0) sec Sodium (137-145) mmol/L Potassium (3.5-5.1) mmol/L Chloride (98-107) mmol/L Carbon Dioxide (22-30) mmol/L Anion Gap mmol/L BUN (7-17) mg/dL Creatinine (0.52-1.04) mg/dL Est GFR (MDRD) Af Amer (>60 ml/min/1.73 sqM) Est GFR (MDRD) Non-Af (>60 ml/min/1.73 sqM) Glucose (74-99) mg/dL Plasma Lactic Acid Vinny (0.7-2.0) mmol/L Calcium (8.4-10.2) mg/dL Total Bilirubin (0.2-1.3) mg/dL AST (14-36) U/L ALT (9-52) U/L Alkaline Phosphatase (38-126) U/L Total Creatine Kinase 43 (30-135) U/L CK-MB (CK-2) 0.3 (0.0-2.4) ng/mL CK-MB (CK-2) Rel Index 0.7 Troponin I <0.012 (0.000-0.034) ng/mL Total Protein (6.3-8.2) g/dL Albumin (3.5-5.0) g/dL Amylase <30 L (30-110) U/L Lipase (23-300) U/L Urine Color Urine Appearance (Clear) Urine pH (5.0-8.0) Ur Specific [place] (1.001-1.035) Urine Protein (Negative) Urine Glucose (UA) (Negative) Urine Ketones (Negative) Urine Blood (Negative) Urine Nitrite (Negative) Urine Bilirubin (Negative) Urine Urobilinogen (<2.0) mg/dL Ur Leukocyte Esterase (Negative) Urine RBC (0-5) /hpf Urine WBC (0-5) /hpf Urine Bacteria (None) /hpf Hyaline Casts (0-2) /lpf Urine Mucus (None) /hpf Influenza Type A RNA (Not Detectd) Influenza Type B (PCR) (Not Detectd) 09/25/17 09/25/17 09/25/17 Range/Units 13:15 13:15 13:15 WBC (3.8-10.6) k/uL RBC (3.80-5.40) m/uL Hgb (11.4-16.0) gm/dL Hct (34.0-46.0) % MCV (80.0-100.0) fL MCH (25.0-35.0) pg MCHC (31.0-37.0) g/dL RDW (11.5-15.5) % Plt Count (150-450) k/uL Neutrophils % % Lymphocytes % % Monocytes % % Eosinophils % % Basophils % % Neutrophils # (1.3-7.7) k/uL Lymphocytes # (1.0-4.8) k/uL Monocytes # (0-1.0) k/uL Eosinophils # (0-0.7) k/uL Basophils # (0-0.2) k/uL Hypochromasia PT 10.9 (9.0-12.0) sec INR 1.1 (<1.2) APTT 23.3 (22.0-30.0) sec Sodium 140 (137-145) mmol/L Potassium 4.5 (3.5-5.1) mmol/L Chloride 108 H (98-107) mmol/L Carbon Dioxide 24 (22-30) mmol/L Anion Gap 8 mmol/L BUN 22 H (7-17) mg/dL Creatinine 0.95 (0.52-1.04) mg/dL Est GFR (MDRD) Af Amer >60 (>60 ml/min/1.73 sqM) Est GFR (MDRD) Non-Af 59 (>60 ml/min/1.73 sqM) Glucose 105 H (74-99) mg/dL Plasma Lactic Acid Vinny 1.5 (0.7-2.0) mmol/L Calcium 9.0 (8.4-10.2) mg/dL Total Bilirubin 0.6 (0.2-1.3) mg/dL AST 29 (14-36) U/L ALT 20 (9-52) U/L Alkaline Phosphatase 80 (38-126) U/L Total Creatine Kinase (30-135) U/L CK-MB (CK-2) (0.0-2.4) ng/mL CK-MB (CK-2) Rel Index Troponin I (0.000-0.034) ng/mL Total Protein 6.5 (6.3-8.2) g/dL Albumin 3.3 L (3.5-5.0) g/dL Amylase (30-110) U/L Lipase 40 (23-300) U/L Urine Color Urine Appearance (Clear) Urine pH (5.0-8.0) Ur Specific [place] (1.001-1.035) Urine Protein (Negative) Urine Glucose (UA) (Negative) Urine Ketones (Negative) Urine Blood (Negative) Urine Nitrite (Negative) Urine Bilirubin (Negative) Urine Urobilinogen (<2.0) mg/dL Ur Leukocyte Esterase (Negative) Urine RBC (0-5) /hpf Urine WBC (0-5) /hpf Urine Bacteria (None) /hpf Hyaline Casts (0-2) /lpf Urine Mucus (None) /hpf Influenza Type A RNA (Not Detectd) Influenza Type B (PCR) (Not Detectd) 09/25/17 09/25/17 Range/Units 13:15 14:23 WBC (3.8-10.6) k/uL RBC (3.80-5.40) m/uL Hgb (11.4-16.0) gm/dL Hct (34.0-46.0) % MCV (80.0-100.0) fL MCH (25.0-35.0) pg MCHC (31.0-37.0) g/dL RDW (11.5-15.5) % Plt Count (150-450) k/uL Neutrophils % % Lymphocytes % % Monocytes % % Eosinophils % % Basophils % % Neutrophils # (1.3-7.7) k/uL Lymphocytes # (1.0-4.8) k/uL Monocytes # (0-1.0) k/uL Eosinophils # (0-0.7) k/uL Basophils # (0-0.2) k/uL Hypochromasia PT (9.0-12.0) sec INR (<1.2) APTT (22.0-30.0) sec Sodium (137-145) mmol/L Potassium (3.5-5.1) mmol/L Chloride (98-107) mmol/L Carbon Dioxide (22-30) mmol/L Anion Gap mmol/L BUN (7-17) mg/dL Creatinine (0.52-1.04) mg/dL Est GFR (MDRD) Af Amer (>60 ml/min/1.73 sqM) Est GFR (MDRD) Non-Af (>60 ml/min/1.73 sqM) Glucose (74-99) mg/dL Plasma Lactic Acid Vinny (0.7-2.0) mmol/L Calcium (8.4-10.2) mg/dL Total Bilirubin (0.2-1.3) mg/dL AST (14-36) U/L ALT (9-52) U/L Alkaline Phosphatase (38-126) U/L Total Creatine Kinase (30-135) U/L CK-MB (CK-2) (0.0-2.4) ng/mL CK-MB (CK-2) Rel Index Troponin I (0.000-0.034) ng/mL Total Protein (6.3-8.2) g/dL Albumin (3.5-5.0) g/dL Amylase (30-110) U/L Lipase (23-300) U/L Urine Color Yellow Urine Appearance Clear (Clear) Urine pH 5.5 (5.0-8.0) Ur Specific [place] 1.020 (1.001-1.035) Urine Protein Trace H (Negative) Urine Glucose (UA) Negative (Negative) Urine Ketones Negative (Negative) Urine Blood Small H (Negative) Urine Nitrite Negative (Negative) Urine Bilirubin Negative (Negative) Urine Urobilinogen 3.0 (<2.0) mg/dL Ur Leukocyte Esterase Trace H (Negative) Urine RBC 3 (0-5) /hpf Urine WBC 3 (0-5) /hpf Urine Bacteria Rare H (None) /hpf Hyaline Casts 1 (0-2) /lpf Urine Mucus Rare H (None) /hpf Influenza Type A RNA Not Detected (Not Detectd) Influenza Type B (PCR) Not Detected (Not Detectd) Disposition Clinical Impression: Abdominal pain Disposition: HOME SELF-CARE Condition: Stable Instructions: Abdominal Pain (ED) Prescriptions: Acetaminophen-Codeine 300-30mg [Tylenol #3] 1 tab PO Q6H PRN #12 tablet PRN Reason: Pain Ondansetron Odt [Zofran Odt] 4 mg PO Q8HR PRN #12 tab PRN Reason: Nausea Referrals: Yandy Brito MD [Primary Care Provider] - 1-2 days
[2017-09-25 14:44] LABS: Appearance,Urine Clear (Clear); Bacteria,Urine Rare /hpf; Bilirubin,Urine Negative (Negative); Glucose,Urine (UA) Negative (Negative); Ketones,Urine Negative (Negative); Leukocyte Esterase,Urine Trace (Negative); Mucus,Urine Rare /hpf; Nitrite,Urine Negative (Negative); PH, Urine 5.5 (5.0-8.0); Particle Count 2625; Protein,Urine Trace (Negative); RBC,Urine 3 /hpf (0-5); UA Billing (MACRO vs. MICRO) MICRO; WBC,Urine 3 /hpf (0-5)
[2017-09-25 14:53] LABS: INR 1.1 (<1.2); Partial Thromboplastin Time 23.3 sec (22.0-30.0); Prothrombin Time 10.9 sec (9.0-12.0)
[2017-09-25 14:56] LABS: Basophils % (A) 0 %; CH 28.6; CHCM 33.1; Eosinophils % (A) 0 %; HCT 36.3 % (34.0-46.0); HDW 3.25; HGB 11.7 gm/dL (11.4-16.0); Hypochromasia Slight; Luc # (Auto) 0.13; Luc % (Auto) 1; Lymphocytes # (A) 1.2 k/uL (1.0-4.8); Lymphocytes % (A) 11 %; MCHC 32.3 g/dL (31.0-37.0); Mean Platelet Volume 8.5; Monocytes # (A) 0.5 k/uL (0-1.0); Monocytes % (A) 5 %; Neutrophils # (A) 8.8 k/uL (1.3-7.7); Neutrophils % (A) 82 %; RBC 4.17 m/uL (3.80-5.40); RDW 14.5 % (11.5-15.5); WBC 10.8 k/uL (3.8-10.6); WBC (Perox) 10.32
[2017-09-25] MEDS: SODIUM CHLORIDE 0.9% 500 ML IV SCH ×3 (14:58→15:00)
[2017-09-25 15:14] LABS: ALT 20 U/L (9-52); AST 29 U/L (14-36); Alkaline Phosphatase 80 U/L (38-126); Anion Gap 8 mmol/L; Blood Urea Nitrogen 22 mg/dL (7-17); Carbon Dioxide 24 mmol/L (22-30); Chloride 108 mmol/L (98-107); Glucose 105 mg/dL (74-99); Non-African American GFR(MDRD) 59 (>60 ml/min/1.73 sqM); Sodium 140 mmol/L (137-145); Total Bilirubin 0.6 mg/dL (0.2-1.3); Total Protein 6.5 g/dL (6.3-8.2)
[2017-09-25 15:15] LABS: Potassium 4.5 mmol/L (3.5-5.1)
--- NOTE | 2017-09-25 15:18 | XR ---
EXAMINATION TYPE: XR chest 2V DATE OF EXAM: 09/25/2017 COMPARISON: 09/06/2017 HISTORY: 66-year-old female with fever TECHNIQUE: PA and lateral views FINDINGS: Heart upper limits of normal in size. Aorta within normal limits. Mild interstitial prominence is unc hanged from prior. No consolidation or pleural effusion. IMPRESSION: Chronic changes, possible chronic bronchitis/asthma. No acute process seen.
[2017-09-25 15:23] LABS: Creatine Kinase 43 U/L (30-135)
[2017-09-25 15:36] LABS: Creatine Kinase MB 0.3 ng/mL (0.0-2.4); Troponin I <0.012 ng/mL (0.000-0.034)
--- NOTE | 2017-09-25 16:19 | CT ---
EXAMINATION TYPE: CT abdomen pelvis w con DATE OF EXAM: 09/25/2017 COMPARISON: Prior CT 01/29/2012 HISTORY: Abdominal pain-generalized with fever CT DLP: 1701 mGycm Automated exposure control for dose reduction was used. TECHNIQUE: Helical acquisition of images from the lung bases through the pelvis have been completed. CONTRAST: Performed without Oral Contrast and with IV Contrast, patient injected with 80 mL of Visipaque 320. FINDINGS: LUNG BASES: No significant abnormality is appreciated. AORTA: No significant abnormality is appreciated. LIVER/GB: The liver shows dilated intrahepatic biliary ducts, common bile duct is also dilated. Gallb ladder is absent, findings similar to prior. PANCREAS: No significant abnormality is seen. SPLEEN: No significant abnormality is seen. ADRENALS: Stable in appearance KIDNEYS: Similar findings, cortical cyst associated with the midpole the right kidney measures 3.2 cm increased from prior when it measured 1.9 cm. REPRODUCTIVE ORGANS: Absent as on prior BOWEL: Some retained fecal debris present throughout the distribution of the colon. FREE AIR: No Free Air visible. ASCITES: None visible. PELVIC ADENOPATHY: None visualized. RETROPERITONEAL ADENOPATHY: No Retroperitoneal Adenopathy visible. URINARY BLADDER: No significant abnormality is seen. OSSEOUS STRUCTURES: There is a spinal curvature. Degenerative disc changes, facet arthropathy noted in the lumbar spine. IMPRESSION: POSTOP CHANGES. CORRELATE FOR POSSIBLE FECAL STASIS. ADDITIONAL FINDINGS ABOVE.
[2017-09-25 16:42] VITALS: BP 129/80; PULSE 78; TEMP 98
== END 2017-09-25 16:41 | disposition home or self-care (01) ==
LOC: EC 13:06
DX: R10.84 Generalized abdominal pain (principal); R11.2 Nausea with vomiting, unspecified; R50.9 Fever, unspecified; I48.91 Unspecified atrial fibrillation; I25.10 Atherosclerotic heart disease of native coronary artery without angina pectoris; J44.9 Chronic obstructive pulmonary disease, unspecified; K21.9 Gastro-esophageal reflux disease without esophagitis; E78.5 Hyperlipidemia, unspecified; I10 Essential (primary) hypertension; F41.9 Anxiety disorder, unspecified; F32.9 Major depressive disorder, single episode, unspecified; F17.200 Nicotine dependence, unspecified, uncomplicated; Z90.49 Acquired absence of other specified parts of digestive tract; Z90.710 Acquired absence of both cervix and uterus; Z86.73 Personal history of transient ischemic attack (TIA), and cerebral infarction without residual deficits; Z88.0 Allergy status to penicillin; Z88.1 Allergy status to other antibiotic agents; Z88.2 Allergy status to sulfonamides; Z88.8 Allergy status to other drugs, medicaments and biological substances; Z91.040 Latex allergy status
CPT/HCPCS: 36415; 93005; 80053; 82150; 82550; 82553; 83605; 83690; 84484; 85025; 85610; 85730; 81001; 87040; 87086; 87502; 71020; 74177; 99285; 96374; 96375; 96361; J2270; Q9967; J2405

== ENCOUNTER 2018-04-18 20:01 | Emergency (ER) | payer MEDICARE, OTHER ==
[2018-04-18 20:21] VITALS: RESP 18
[2018-04-18] MEDS ORDERED: SODIUM CHLORIDE 0.9% 1,000 ML IV STA (20:24)
[2018-04-18 20:52] LABS: Basophils % (A) 0 %; Eosinophils # (A) 0.1 k/uL (0-0.7); Eosinophils % (A) 2 %; HCT 40.2 % (34.0-46.0); HGB 13.3 gm/dL (11.4-16.0); Lymphocytes # (A) 1.7 k/uL (1.0-4.8); Lymphocytes % (A) 26 %; MCH 27.3 pg (25.0-35.0); MCV 82.8 fL (80.0-100.0); Monocytes # (A) 0.3 k/uL (0-1.0); Monocytes % (A) 5 %; Neutrophils # (A) 4.3 k/uL (1.3-7.7); Neutrophils % (A) 66 %; Platelet Count 189 k/uL (150-450); RBC 4.86 m/uL (3.80-5.40); RDW 13.9 % (11.5-15.5); WBC 6.5 k/uL (3.8-10.6)
[2018-04-18 21:01] LABS: ALT 36 U/L (9-52); AST 17 U/L (14-36); Albumin 4.2 g/dL (3.5-5.0); Alkaline Phosphatase 101 U/L (38-126); Anion Gap 10 mmol/L; Blood Urea Nitrogen 21 mg/dL (7-17); Calcium 9.5 mg/dL (8.4-10.2); Carbon Dioxide 30 mmol/L (22-30); Chloride 102 mmol/L (98-107); Glucose 92 mg/dL (74-99); Magnesium 1.8 mg/dL (1.6-2.3); Potassium 3.9 mmol/L (3.5-5.1); Sodium 142 mmol/L (137-145); Total Bilirubin 0.5 mg/dL (0.2-1.3); Total Protein 6.3 g/dL (6.3-8.2)
[2018-04-18 21:02] LABS: Appearance,Urine Clear (Clear); Bilirubin,Urine Negative (Negative); Blood,Urine Trace (Negative); Color,Urine Yellow; Glucose,Urine (UA) Negative (Negative); Hyaline Casts,Urine 1 /lpf (0-2); Ketones,Urine Negative (Negative); Leukocyte Esterase,Urine Trace (Negative); Mucus,Urine Rare /hpf; Nitrite,Urine Negative (Negative); Protein,Urine Negative (Negative); RBC,Urine 4 /hpf (0-5); Specific Gravity,Urine 1.016 (1.001-1.035); Squamous Epithelial Cell,Urine 2 /hpf (0-4); Urobilinogen,Urine <2.0 mg/dL (<2.0); WBC,Urine 3 /hpf (0-5)
[2018-04-18 21:03] LABS: Prothrombin Time 10.3 sec (9.0-12.0)
[2018-04-18 21:16] LABS: Creatine Kinase 40 U/L (30-135)
[2018-04-18 21:29] LABS: Creatine Kinase MB 0.5 ng/mL (0.0-2.4); Troponin I <0.012 ng/mL (0.000-0.034)
--- NOTE | 2018-04-18 21:35 | XR ---
EXAMINATION TYPE: XR chest 2V DATE OF EXAM: 04/18/2018 COMPARISON: 09/25/2017 HISTORY: Chest pain TECHNIQUE: Frontal and lateral views of the chest are obtained. FINDINGS: Heart and mediastinum are normal. Lungs are clear. Diaphragm is normal. There are chest le ads. Bony thorax is intact. IMPRESSION: Normal chest. No change.
--- NOTE | 2018-04-18 21:59 | ED ---
General Adult HPI - General Chief complaint: ENT Stated complaint: Weakness Time Seen by Provider: 04/18/18 20:09 Source: patient Mode of arrival: EMS Limitations: physical limitation - History of Present Illness Initial comments: Jessie is a 67 yo female who since the emergency department today for evaluation of fatigue and an uncomfortable sensation in her mouth. Patient reports that yesterday she was sitting outside reading a book and she noticed that her tongue began to feel like it was dry and swollen. She states that she felt kind of like her tongue was numb but also like her gums were painful. She states that at that time she felt that she had very dry mouth, she went inside and was able to eat and drink. She had no trouble speaking or swallowing at that time. She reports that the sensation went away completely. She states that again today she was sitting on her porch when she felt the same sensation. She describes it as feeling as though her tongue is tingly and is swollen, however she has no difficulty speaking, or swallowing, she has no tightness in her throat or trouble breathing. Again the sensation got better. also reports that she has felt more fatigued for the past 2 days. She states that all she has been doing is sleeping at night and then eating during the day and spitting time sitting reading, despite that she still feels the need to nap which she feels is atypical. She is concerned she may have a problem with her thyroid and wanted that checked out. She denies any chest pain, palpitations, pain in her neck or shoulders, she denies any dyspnea or shortness of breath with exertion. She denies any headaches, vision changes, facial droop, trouble speaking or swallowing, any unilateral weakness in her arms or legs. She does report that she feels her entire body is weak. - Related Data Home Medications Medication Instructions Recorded Confirmed Albuterol Inhaler [Ventolin Hfa 2 puff INHALATION RT-Q6H PRN 01/09/15 09/25/17 Inhaler] Gabapentin [Neurontin] 300 mg PO TID 01/09/15 09/25/17 Atenolol [Tenormin] 50 mg PO DAILY 11/13/16 09/25/17 Isosorbide Mononitrate [Isosorbide 30 mg PO DAILY 11/13/16 09/25/17 Mononitrate ER] Albuterol Nebulized [Ventolin 2.5 mg INHALATION RT-TID PRN 09/06/17 09/25/17 Nebulized] Loperamide HCl [Imodium A-D] 2 mg PO QID PRN 09/06/17 09/25/17 Omeprazole [Omeprazole] 20 mg PO DAILY 09/06/17 09/25/17 Sinus Medication (Unknown Otc) 1 tab PO Q6H PRN 09/06/17 09/25/17 Umeclidinium Silas [Incruse 1 puff INHALATION RT-DAILY 09/06/17 09/25/17 Ellipta] Atorvastatin [Lipitor] 20 mg PO DAILY 09/25/17 09/25/17 Mirtazapine [Remeron] 15 mg PO HS 09/25/17 09/25/17 Previous Rx's Medication Instructions Recorded Apixaban [Eliquis] 5 mg PO BID #60 tab 09/07/17 Diltiazem Cd [Cardizem CD] 180 mg PO DAILY #30 cap.er.24h 09/07/17 Acetaminophen-Codeine 300-30mg 1 tab PO Q6H PRN #12 tablet 09/25/17 [Tylenol #3] Ondansetron Odt [Zofran Odt] 4 mg PO Q8HR PRN #12 tab 09/25/17 Allergies Allergy/AdvReac Type Severity Reaction Status Date / Time atorvastatin [From Lipitor] Allergy Unknown Verified 09/25/17 13:11 cephalexin monohydrate Allergy Rash/Hives Verified 09/25/17 13:11 [From Keflex] ciprofloxacin [From Cipro] Allergy Swelling Verified 09/25/17 13:11 latex Allergy Rash/Hives Verified 09/25/17 13:11 oxytetracycline Allergy Rash/Hives Verified 09/25/17 13:11 [From Terramycin] Penicillins Allergy Rash/Hives Verified 09/25/17 13:11 quetiapine fumarate Allergy Rash/Hives Verified 09/25/17 13:11 [From Seroquel] Sulfa (Sulfonamide Allergy Rash/Hives Verified 09/25/17 13:11 Antibiotics) Review of Systems ROS Statement: Those systems with pertinent positive or pertinent negative responses have been documented in the HPI. ROS Other: All systems not noted in ROS Statement are negative. Constitutional: Denies: fever, chills Eyes: Denies: vision change ENT: Reports: dental pain (pain in her gums, tingling in her tongue). Denies: ear pain, throat pain Respiratory: Denies: cough, dyspnea Cardiovascular: Denies: chest pain, palpitations Endocrine: Reports: fatigue Gastrointestinal: Denies: abdominal pain, nausea, vomiting Genitourinary: Denies: urgency, dysuria Musculoskeletal: Denies: back pain Skin: Denies: rash, lesions Neurological: Reports: weakness (generalized). Denies: headache, numbness Psychiatric: Denies: anxiety, depression Hematological/Lymphatic: Denies: easy bleeding, easy bruising Past Medical History Past Medical History: Atrial Fibrillation, Asthma, Coronary Artery Disease (CAD) , Chest Pain / Angina, COPD, CVA/TIA, Dementia, Fibromyalgia, GERD/Reflux, Hyperlipidemia, Hypertension, Memory Impairment, Osteoarthritis (OA), Pneumonia Additional Past Medical History / Comment(s): EARLY DEMENTIA WITH SOME SHORT TERM MEMORY LOSS, NEUROPATHY BILATERAL UPPER AND LOWER EXTREMITIES, CHRONIC BACK PAIN, DJD, CVA 2006, TIA 2007, BRONCHITIS, SINUS PROBLEMS AT TIMES, 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 Past Anesthesia/Blood Transfusion Reactions: Previous Problems w/ Anesthesia Additional Past Anesthesia/Blood Transfusion Reaction / Comment(s): difficulty waking in past. clausterphobia Past Psychological History: Anxiety, Depression Smoking Status: Current every day smoker Past Alcohol Use History: None Reported Past Drug Use History: None Reported - Past Family History Mother Additional Family Medical History / Comment(s): Mother at age 73 from a brain stem stroke. Brother(s) Additional Family Medical History / Comment(s): Patient has 2 full brothers with no major medical problems. Patient does not have any sisters. Patient has 3 sons with no major medical problems. Father Family Medical History: Congestive Heart Failure (CHF), Myocardial Infarction ( HI) Additional Family Medical History / Comment(s): Father at age 76 from a massive heart attack. General Exam Limitations: physical limitation General appearance: alert, in no apparent distress Head exam: Present: atraumatic, normocephalic Eye exam: Present: normal appearance, PERRL, EOMI. Absent: scleral icterus, conjunctival injection, nystagmus ENT exam: Present: mucous membranes dry, TM's normal bilaterally, normal external ear exam, other (Edentulous, well fitting upper dentures, no lower dentures, tongue is normal, tongue protrudes to midline with no fasciculations) Neck exam: Present: normal inspection, full ROM. Absent: tenderness, meningismus, lymphadenopathy, thyromegaly Respiratory exam: Present: normal lung sounds bilaterally. Absent: respiratory distress Cardiovascular Exam: Present: regular rate, normal rhythm GI/Abdominal exam: Present: soft. Absent: distended Rectal exam: Present: deferred Extremities exam: Present: normal inspection, full ROM, normal capillary refill. Absent: pedal edema Neurological exam: Present: alert, oriented X3, abnormal gait (Walks with walker , unchanged from baseline). Absent: CN II-XII intact Psychiatric exam: Present: normal affect, anxious Skin exam: Present: warm, dry, intact, normal color. Absent: rash Course Vital Signs 04/18/18 04/18/18 20:12 22:30 Temperature 98.7 F 98.3 F Pulse Rate 78 62 Respiratory 18 18 Rate Blood Pressure 182/90 135/62 O2 Sat by Pulse 99 98 Oximetry EKG Findings - EKG Comments: EKG Findings:: EKG at 2012, rate is 85, rhythm is sinus, normal axis, normal intervals, there is markedly sinus arrhythmia. There is no acute ST elevations or depressions. Medical Decision Making - Medical Decision Making Patient was seen and evaluated, patient reports fatigue and episodes of her tongue feeling uncomfortable with dry mouth Physical exam grossly unremarkable, patient has no teeth, well fitting upper dentures, no lower dentures ever worn Posterior oropharynx is unremarkable, TMs normal bilaterally Labs and imaging ordered, IVF ordered Patient able to ambulate to restroom independently, returned to room and was sleeping comfortably. Labs with hyperglycemia but no significant abnormalities, this was discussed with patient who expresses relief and is agreeable to plan for discharge home and follow up with her PCP and neurologist for further evaluation. I advised the patient that she needs to be drinking plenty of fluids while she is sitting outside in the sun, I advised her that I do feel that dehydration could contribute to her symptoms especially the dry mouth and uncomfortable tongue sensation. In addition he could cause fatigue. Patient's breast understanding of this. All questions pertaining to care were answered the best my ability and the patient was discharged home. - Lab Data Result diagrams: 04/18/18 20:25 04/18/18 20:25 Lab Results 04/18/18 04/18/18 04/18/18 Range/Units 20:25 20:25 20:25 WBC 6.5 (3.8-10.6) k/uL RBC 4.86 (3.80-5.40) m/uL Hgb 13.3 (11.4-16.0) gm/dL Hct 40.2 (34.0-46.0) % MCV 82.8 (80.0-100.0) fL MCH 27.3 (25.0-35.0) pg MCHC 33.0 (31.0-37.0) g/dL RDW 13.9 (11.5-15.5) % Plt Count 189 (150-450) k/uL Neutrophils % 66 % Lymphocytes % 26 % Monocytes % 5 % Eosinophils % 2 % Basophils % 0 % Neutrophils # 4.3 (1.3-7.7) k/uL Lymphocytes # 1.7 (1.0-4.8) k/uL Monocytes # 0.3 (0-1.0) k/uL Eosinophils # 0.1 (0-0.7) k/uL Basophils # 0.0 (0-0.2) k/uL PT (9.0-12.0) sec INR (<1.2) APTT (22.0-30.0) sec Sodium 142 (137-145) mmol/L Potassium 3.9 (3.5-5.1) mmol/L Chloride 102 (98-107) mmol/L Carbon Dioxide 30 (22-30) mmol/L Anion Gap 10 mmol/L BUN 21 H (7-17) mg/dL Creatinine 0.66 (0.52-1.04) mg/dL Est GFR (CKD-EPI)AfAm >90 (>60 ml/min/1.73 sqM) Est GFR (CKD-EPI)NonAf >90 (>60 ml/min/1.73 sqM) Glucose 92 (74-99) mg/dL Calcium 9.5 (8.4-10.2) mg/dL Magnesium 1.8 (1.6-2.3) mg/dL Total Bilirubin 0.5 (0.2-1.3) mg/dL AST 17 (14-36) U/L ALT 36 (9-52) U/L Alkaline Phosphatase 101 (38-126) U/L Total Creatine Kinase 40 (30-135) U/L CK-MB (CK-2) 0.5 (0.0-2.4) ng/mL CK-MB (CK-2) Rel Index 1.3 Troponin I <0.012 (0.000-0.034) ng/mL Total Protein 6.3 (6.3-8.2) g/dL Albumin 4.2 (3.5-5.0) g/dL Urine Color Urine Appearance (Clear) Urine pH (5.0-8.0) Ur Specific Welcome (1.001-1.035) Urine Protein (Negative) Urine Glucose (UA) (Negative) Urine Ketones (Negative) Urine Blood (Negative) Urine Nitrite (Negative) Urine Bilirubin (Negative) Urine Urobilinogen (<2.0) mg/dL Ur Leukocyte Esterase (Negative) Urine RBC (0-5) /hpf Urine WBC (0-5) /hpf Ur Squamous Epith Cells (0-4) /hpf Hyaline Casts (0-2) /lpf Urine Mucus (None) /hpf 04/18/18 04/18/18 Range/Units 20:25 20:25 WBC (3.8-10.6) k/uL RBC (3.80-5.40) m/uL Hgb (11.4-16.0) gm/dL Hct (34.0-46.0) % MCV (80.0-100.0) fL MCH (25.0-35.0) pg MCHC (31.0-37.0) g/dL RDW (11.5-15.5) % Plt Count (150-450) k/uL Neutrophils % % Lymphocytes % % Monocytes % % Eosinophils % % Basophils % % Neutrophils # (1.3-7.7) k/uL Lymphocytes # (1.0-4.8) k/uL Monocytes # (0-1.0) k/uL Eosinophils # (0-0.7) k/uL Basophils # (0-0.2) k/uL PT 10.3 (9.0-12.0) sec INR 1.0 (<1.2) APTT 23.0 (22.0-30.0) sec Sodium (137-145) mmol/L Potassium (3.5-5.1) mmol/L Chloride (98-107) mmol/L Carbon Dioxide (22-30) mmol/L Anion Gap mmol/L BUN (7-17) mg/dL Creatinine (0.52-1.04) mg/dL Est GFR (CKD-EPI)AfAm (>60 ml/min/1.73 sqM) Est GFR (CKD-EPI)NonAf (>60 ml/min/1.73 sqM) Glucose (74-99) mg/dL Calcium (8.4-10.2) mg/dL Magnesium (1.6-2.3) mg/dL Total Bilirubin (0.2-1.3) mg/dL AST (14-36) U/L ALT (9-52) U/L Alkaline Phosphatase (38-126) U/L Total Creatine Kinase (30-135) U/L CK-MB (CK-2) (0.0-2.4) ng/mL CK-MB (CK-2) Rel Index Troponin I (0.000-0.034) ng/mL Total Protein (6.3-8.2) g/dL Albumin (3.5-5.0) g/dL Urine Color Yellow Urine Appearance Clear (Clear) Urine pH 6.0 (5.0-8.0) Ur Specific Welcome 1.016 (1.001-1.035) Urine Protein Negative (Negative) Urine Glucose (UA) Negative (Negative) Urine Ketones Negative (Negative) Urine Blood Trace H (Negative) Urine Nitrite Negative (Negative) Urine Bilirubin Negative (Negative) Urine Urobilinogen <2.0 (<2.0) mg/dL Ur Leukocyte Esterase Trace H (Negative) Urine RBC 4 (0-5) /hpf Urine WBC 3 (0-5) /hpf Ur Squamous Epith Cells 2 (0-4) /hpf Hyaline Casts 1 (0-2) /lpf Urine Mucus Rare H (None) /hpf Disposition Clinical Impression: Glossitis Disposition: HOME SELF-CARE Condition: Good Instructions: Paresthesia (ED) Is patient prescribed a controlled substance at d/c from ED?: No Referrals: Yandy Brito MD [Primary Care Provider] - 1-2 days Time of Disposition: 22:10
[2018-04-18 23:00] VITALS: BP 135/62; PULSE 62; TEMP 98.3
== END 2018-04-18 22:30 | disposition home or self-care (01) ==
LOC: EC 20:01
DX: K14.0 Glossitis (principal); R53.83 Other fatigue; R73.9 Hyperglycemia, unspecified; F41.9 Anxiety disorder, unspecified; R53.1 Weakness; E78.5 Hyperlipidemia, unspecified; I10 Essential (primary) hypertension; I25.10 Atherosclerotic heart disease of native coronary artery without angina pectoris; J44.9 Chronic obstructive pulmonary disease, unspecified; K21.9 Gastro-esophageal reflux disease without esophagitis; M79.7 Fibromyalgia; G62.9 Polyneuropathy, unspecified; F32.9 Major depressive disorder, single episode, unspecified; F17.200 Nicotine dependence, unspecified, uncomplicated; Z79.899 Other long term (current) drug therapy; Z88.0 Allergy status to penicillin; Z88.1 Allergy status to other antibiotic agents; Z88.2 Allergy status to sulfonamides; Z88.8 Allergy status to other drugs, medicaments and biological substances; Z91.040 Latex allergy status; Z86.79 Personal history of other diseases of the circulatory system; Z97.2 Presence of dental prosthetic device (complete) (partial)
CPT/HCPCS: 36415; 71046; 80053; 81001; 82550; 82553; 83735; 84484; 85025; 85610; 85730; 93005; 96360; 99285

== ENCOUNTER → 2018-05-23 | Outpatient (CLI) | payer MEDICARE, OTHER ==
--- NOTE | 2018-05-23 14:29 | XR ---
EXAMINATION TYPE: XR cervical spine comp DATE OF EXAM: 05/23/2018 TECHNIQUE: Frontal, lateral, oblique, swimmers, and open mouth view of the cervical spine are obtaine d. HISTORY: M54.2 Neck Pain COMPARISON: 05/06/2010 FINDINGS: The cervical spine is visualized in its entirety from C1 thru the top of T1 level, it is s atisfactory in alignment without evidence of acute fracture or dislocation. Mild multilevel degenerat gama disc disease is seen of the cervical spine with small anterior osteophyte at C5-C6 and minimal mu ltilevel facet arthropathy as well as uncovertebral hypertrophy. Mild neural foraminal narrowing is s een on the right at C6-C7. No significant radiographic neural foraminal narrowing on the left. Odonto id appears intact. Prevertebral soft tissues are within normal limits. IMPRESSION: 1. No acute fracture or malalignment is seen in the cervical spine. 2. Mild degenerative disc disease of the lower cervical spine resulting in mild neural foraminal narr owing at C6-C7 on the right. No significant progression radiographically from the prior exam of 2009.
== END | disposition home or self-care (01) ==
LOC: RADXRMAIN 11:52
PROVIDERS: ATTEND Internal Medicine
DX: M50.30 Other cervical disc degeneration, unspecified cervical region (principal)
CPT/HCPCS: 72050

== ENCOUNTER 2019-07-02 16:51 | Emergency (ER) | payer MEDICARE, OTHER ==
[2019-07-02] MEDS ORDERED: ONDANSETRON ODT 4 MG TAB PO STA (18:01)
[2019-07-02] MEDS ORDERED: SODIUM CHLORIDE 0.9% 1,000 ML IV STA (18:01)
[2019-07-02 18:46] LABS: Basophils # (A) 0.1 k/uL (0-0.2); Basophils % (A) 1 %; Eosinophils # (A) 0.7 k/uL (0-0.7); Eosinophils % (A) 3 %; HCT 42.2 % (34.0-46.0); HGB 14.4 gm/dL (11.4-16.0); Lymphocytes # (A) 1.3 k/uL (1.0-4.8); Lymphocytes % (A) 6 %; MCH 29.2 pg (25.0-35.0); MCHC 34.1 g/dL (31.0-37.0); MCV 85.7 fL (80.0-100.0); Mean Platelet Volume 7.8; Monocytes # (A) 0.4 k/uL (0-1.0); Monocytes % (A) 2 %; Neutrophils # (A) 19.6 k/uL (1.3-7.7); Neutrophils % (A) 88 %; Platelet Count 347 k/uL (150-450); RBC 4.93 m/uL (3.80-5.40); RDW 14.7 % (11.5-15.5); WBC 22.3 k/uL (3.8-10.6)
[2019-07-02 18:52] LABS: Albumin 3.6 g/dL (3.5-5.0); Calcium 9.2 mg/dL (8.4-10.2); Potassium 3.2 mmol/L (3.5-5.1); Total Bilirubin 0.9 mg/dL (0.2-1.3); Total Protein 6.3 g/dL (6.3-8.2)
--- NOTE | 2019-07-02 19:06 | XR ---
EXAMINATION TYPE: XR chest 2V DATE OF EXAM: 07/02/2019 COMPARISON: 04/18/2018 HISTORY: Cough TECHNIQUE: Frontal and lateral views of the chest are obtained. FINDINGS: Heart and mediastinum are normal. Lungs are clear of consolidation. There are chest leads. There is slight coarsening of the lung markings. There is no pleural effusion. IMPRESSION: Lung markings increased slightly compared to old exam. No pulmonary consolidation or hea rt failure.
[2019-07-02] MEDS ORDERED: MORPHINE SULFATE 2 MG/ML SYRINGE IVP ONE (19:10)
[2019-07-02 19:33] LABS: Appearance,Urine Cloudy (Clear); Bilirubin,Urine Negative (Negative); Blood,Urine Negative (Negative); Cellular Casts,Urine 8 /lpf (0); Color,Urine Yellow; Glucose,Urine (UA) Negative (Negative); Granular Casts,Urine 1 /lpf (0); Hyaline Casts,Urine 61 /lpf (0-2); Ketones,Urine Negative (Negative); Leukocyte Esterase,Urine Trace (Negative); Mucus,Urine Moderate /hpf; Nitrite,Urine Negative (Negative); PH, Urine 6.5 (5.0-8.0); Protein,Urine 1+ (Negative); RBC,Urine 4 /hpf (0-5); Squamous Epithelial Cell,Urine 4 /hpf (0-4); Urobilinogen,Urine <2.0 mg/dL (<2.0)
--- NOTE | 2019-07-02 20:08 | ED ---
General Adult HPI - General Source: patient Mode of arrival: wheelchair Limitations: no limitations <Demario Rodriguez - Last Filed: 07/02/19 19:58> <Keya Avila - Last Filed: 07/03/19 07:13> - General Chief complaint: Nausea/Vomiting/Diarrhea Stated complaint: SICK X 2 WEEKS, SINUS Time Seen by Provider: 07/02/19 17:43 - History of Present Illness Initial comments: Patient is 60-year-old female presenting to emergency Department with chief complaint of abdominal pain. Patient reports gradual onset of abdominal pain approximately 2 weeks ago that is increasing severity. Patient reports one to the urgent care 1 week ago where she was diagnosed with UTI. Patient also reports she was diagnosed with a sinus infection. Patient was given Macrobid and azithromycin. Patient reports right flank pain that does not radiate anywhere. Patient reports nausea but no vomiting or diarrhea. Patient reports s hortness of breath but states that is due to her COPD Patient denies fevers, night sweats or chills. Patient reports the pain is not correlated to food intake. Patient denies hematuria, hematochezia or melena. Patient denies urinary or bowel symptoms. Patient has had a cholecystectomy. Patient denies chest pain, chest tightness, headaches or blurry vision. (Demario Rodriguez) - Related Data Home Medications Medication Instructions Recorded Confirmed Albuterol Inhaler [Ventolin Hfa 2 puff INHALATION RT-Q6H PRN 01/09/15 07/02/19 Inhaler] Albuterol Nebulized [Ventolin 2.5 mg INHALATION RT-TID PRN 09/06/17 07/02/19 Nebulized] Loperamide HCl [Imodium A-D] 2 mg PO QID PRN 09/06/17 07/02/19 Omeprazole 20 mg PO DAILY 09/06/17 07/02/19 Umeclidinium [place] [Incruse 1 puff INHALATION RT-DAILY 09/06/17 07/02/19 Ellipta] Mirtazapine [Remeron] 15 mg PO HS 09/25/17 07/02/19 Nitrofurantoin Monohyd/M-Cryst 100 mg PO BID 07/02/19 07/02/19 [Macrobid] Tamsulosin [Flomax] 0.4 mg PO DAILY 07/02/19 07/02/19 Allergies Allergy/AdvReac Type Severity Reaction Status Date / Time atorvastatin [From Lipitor] Allergy Unknown Verified 07/02/19 18:00 cephalexin monohydrate Allergy Rash/Hives Verified 07/02/19 18:00 [From Keflex] ciprofloxacin [From Cipro] Allergy Swelling Verified 07/02/19 18:00 latex Allergy Rash/Hives Verified 07/02/19 18:00 oxytetracycline Allergy Rash/Hives Verified 07/02/19 18:00 [From Terramycin] Penicillins Allergy Rash/Hives Verified 07/02/19 18:00 quetiapine fumarate Allergy Rash/Hives Verified 07/02/19 18:00 [From Seroquel] Sulfa (Sulfonamide Allergy Rash/Hives Verified 07/02/19 18:00 Antibiotics) Review of Systems ROS Other: All systems not noted in ROS Statement are negative. <Demario Rodriguez - Last Filed: 07/02/19 19:58> ROS Other: All systems not noted in ROS Statement are negative. <Keya Avila - Last Filed: 07/03/19 07:13> ROS Statement: Those systems with pertinent positive or pertinent negative responses have been documented in the HPI. 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 Past Anesthesia/Blood Transfusion Reactions: Previous Problems w/ Anesthesia Additional Past Anesthesia/Blood Transfusion Reaction / Comment(s): difficulty waking in past. clausterphobia Past Psychological History: Anxiety, Depression Smoking Status: Current every day smoker Past Alcohol Use History: Occasional, Rare Past Drug Use History: None Reported - Past Family History Mother Additional Family Medical History / Comment(s): Mother at age 73 from a brain stem stroke. Brother(s) Additional Family Medical History / Comment(s): Patient has 2 full brothers with no major medical problems. Patient does not have any sisters. Patient has 3 sons with no major medical problems. Father Family Medical History: Congestive Heart Failure (CHF), Myocardial Infarction ([place]) Additional Family Medical History / Comment(s): Father at age 76 from a massive heart attack. <Demario Rodriguez - Last Filed: 07/02/19 19:58> General Exam Limitations: no limitations General appearance: alert, in no apparent distress Head exam: Present: atraumatic, normocephalic, normal inspection Eye exam: Present: normal appearance, PERRL, EOMI. Absent: conjunctival injection Pupils: Present: normal accommodation ENT exam: Present: normal exam, normal oropharynx, mucous membranes moist, TM's normal bilaterally, normal external ear exam. Absent: mucous membranes dry Neck exam: Present: normal inspection, full ROM. Absent: tenderness Respiratory exam: Present: wheezes (Wheezing at the right lung base.). Absent: chest wall tenderness Cardiovascular Exam: Present: regular rate, normal rhythm, normal heart sounds. Absent: systolic murmur GI/Abdominal exam: Present: soft, tenderness (Umbilical and right lower quadrant tenderness with palpation. No rebound or guarding. Positive McBurney point tenderness, negative psoas or obturator. Negative Gaines sign.), normal bowel sounds. Absent: guarding, rebound Extremities exam: Present: normal inspection, full ROM Back exam: Present: normal inspection, full ROM, CVA tenderness (R). Absent: CVA tenderness (L) Neurological exam: Present: alert, oriented X3 Psychiatric exam: Present: normal affect, normal mood Skin exam: Present: warm, intact, normal color <Demario Rodriguez Last Filed: 07/02/19 19:58> Course Vital Signs 07/02/19 07/02/19 07/02/19 17:22 18:40 20:49 Temperature 98.6 F Pulse Rate 83 80 87 Respiratory 18 14 16 Rate Blood Pressure 96/64 131/77 115/58 O2 Sat by Pulse 97 96 97 Oximetry 07/02/19 22:49 Temperature 98.2 F Pulse Rate 78 Respiratory 18 Rate Blood Pressure 126/83 O2 Sat by Pulse 96 Oximetry Medical Decision Making - Lab Data Result diagrams: 07/02/19 18:35 07/02/19 18:35 <Demario Rodriguez - Last Filed: 07/02/19 19:58> - Lab Data Result diagrams: 07/02/19 18:35 07/02/19 18:35 <Keya Avila - Last Filed: 07/03/19 07:13> - Medical Decision Making Patient was initially evaluated by mid-level provider, labs reveal leukocytosis however there are no other acute findings. At the time of sign out computed tomography scan was pending. Computed tomography scan had no significant abnormalities. I personally saw and reexamined the patient is resting comfortably. Patient did confirm that she's recently been on oral steroids which could account for the leukocytosis. At this time patient is requesting discharge home she reports she is feeling better after IV fluids and doesn't feel there is any need for her to stay in the hospital. All questions pertaining care were answered return parameters were discussed patient was discharged home in stable condition. (Keya Avila) - Lab Data Lab Results 07/02/19 07/02/19 07/02/19 Range/Units 18:35 18:35 18:54 WBC 22.3 H (3.8-10.6) k/uL RBC 4.93 (3.80-5.40) m/uL Hgb 14.4 (11.4-16.0) gm/dL Hct 42.2 (34.0-46.0) % MCV 85.7 (80.0-100.0) fL MCH 29.2 (25.0-35.0) pg MCHC 34.1 (31.0-37.0) g/dL RDW 14.7 (11.5-15.5) % Plt Count 347 (150-450) k/uL Neutrophils % 88 % Lymphocytes % 6 % Monocytes % 2 % Eosinophils % 3 % Basophils % 1 % Neutrophils # 19.6 H (1.3-7.7) k/uL Lymphocytes # 1.3 (1.0-4.8) k/uL Monocytes # 0.4 (0-1.0) k/uL Eosinophils # 0.7 (0-0.7) k/uL Basophils # 0.1 (0-0.2) k/uL Sodium 139 (137-145) mmol/L Potassium 3.2 L (3.5-5.1) mmol/L Chloride 99 (98-107) mmol/L Carbon Dioxide 34 H (22-30) mmol/L Anion Gap 6 mmol/L BUN 26 H (7-17) mg/dL Creatinine 1.13 H (0.52-1.04) mg/dL Est GFR (CKD-EPI)AfAm 58 (>60 ml/min/1.73 sqM) Est GFR (CKD-EPI)NonAf 50 (>60 ml/min/1.73 sqM) Glucose 99 (74-99) mg/dL Calcium 9.2 (8.4-10.2) mg/dL Total Bilirubin 0.9 (0.2-1.3) mg/dL AST 12 L (14-36) U/L ALT 21 (9-52) U/L Alkaline Phosphatase 84 (38-126) U/L Total Protein 6.3 (6.3-8.2) g/dL Albumin 3.6 (3.5-5.0) g/dL Amylase 42 (30-110) U/L Lipase 67 (23-300) U/L Urine Color Yellow Urine Appearance Cloudy H (Clear) Urine pH 6.5 (5.0-8.0) Ur Specific [address] 1.020 (1.001-1.035) Urine Protein 1+ H (Negative) Urine Glucose (UA) Negative (Negative) Urine Ketones Negative (Negative) Urine Blood Negative (Negative) Urine Nitrite Negative (Negative) Urine Bilirubin Negative (Negative) Urine Urobilinogen <2.0 (<2.0) mg/dL Ur Leukocyte Esterase Trace H (Negative) Urine RBC 4 (0-5) /hpf Urine WBC 10 H (0-5) /hpf Ur Squamous Epith Cells 4 (0-4) /hpf Cellular Casts 8 (0) /lpf Hyaline Casts 61 H (0-2) /lpf Granular Casts 1 (0) /lpf Urine Mucus Moderate H (None) /hpf Disposition <Demario Rodriguez - Last Filed: 07/02/19 19:58> Is patient prescribed a controlled substance at d/c from ED?: No <Keya Avila - Last Filed: 07/03/19 07:13> Clinical Impression: Chronic right flank pain, Leukocytosis, Hypokalemia Disposition: HOME SELF-CARE Condition: Stable Instructions (If sedation given, give patient instructions): Abdominal Pain (ED) Referrals: Yandy Brito MD [Primary Care Provider] - 1-2 days Omid Solis MD [STAFF PHYSICIAN] - 1-2 days
[2019-07-02] MEDS ORDERED: ONDANSETRON 4 MG/2 ML VIAL IVP STA (20:49)
[2019-07-02] MEDS ORDERED: SODIUM CHLORIDE 0.9% 1,000 ML IV ONE (21:10)
--- NOTE | 2019-07-02 21:39 | CT ---
History: ITS.REASON CT Reason: Pain Exam: CT ABDOMEN + PELVIS With Contrast Technique more: CTDI is 15.8 mGy and DLP is 1388.9 mGy-cm. Technique more: This CT exam was performed using one or more of the following dose reduction techniques: automated exposure control, adjustment of the mA and/or kV according to patient size, and/or use of iterative reconstruction technique. Comparison: 09/25/2017 FINDINGS: Lung bases are clear. Diffuse intra-and extra hepatic biliary ductal dilation again seen. The common bile duct measures up to 1.2 cm not significantly changed. May correlate further with LFTs and alk phosphatase. Bilateral areas of cortical renal scarring and right renal cyst again noted. Abdominal solid organs and abdominal aorta otherwise appear within limits. Gallbladder again is not identified. No bowel dilation or free air. The appendix is not identified, no secondary signs. Collapsed bladder appears unremarkable. No free fluid. IMPRESSION: Diffuse intra-and extra hepatic biliary ductal dilation again seen. The common bile duct measures up to 1.2 cm not significantly changed. May correlate further with LFTs and alkaline phosphatase. Bilateral areas of cortical renal scarring and right renal cyst again noted.
[2019-07-02 22:50] VITALS: BP 126/83; PULSE 78; RESP 18; TEMP 98.2
== END 2019-07-02 22:50 | disposition home or self-care (01) ==
LOC: EC 16:51
DX: E87.6 Hypokalemia (principal); D72.829 Elevated white blood cell count, unspecified; G89.29 Other chronic pain; R10.9 Unspecified abdominal pain; I25.119 Atherosclerotic heart disease of native coronary artery with unspecified angina pectoris; J44.9 Chronic obstructive pulmonary disease, unspecified; F32.9 Major depressive disorder, single episode, unspecified; I10 Essential (primary) hypertension; F17.200 Nicotine dependence, unspecified, uncomplicated; Z79.899 Other long term (current) drug therapy; Z88.1 Allergy status to other antibiotic agents; Z88.0 Allergy status to penicillin; Z88.2 Allergy status to sulfonamides; Z88.8 Allergy status to other drugs, medicaments and biological substances; Z91.040 Latex allergy status; Z86.73 Personal history of transient ischemic attack (TIA), and cerebral infarction without residual deficits; Z90.49 Acquired absence of other specified parts of digestive tract
CPT/HCPCS: 36415; 80053; 82150; 83690; 85025; 81001; 71046; 74177; 99284; 96374; 96375; 96361 ×3; J2405; J2270; Q9967

== ENCOUNTER 2019-08-07 16:38 | Inpatient (IN) | payer MEDICARE, OTHER ==
[2019-08-07] MEDS ORDERED: ASPIRIN 81 MG PO STA (17:12)
[2019-08-07] MEDS ORDERED: NITROGLYCERIN SL TABS 0.4 MG TAB SUBLINGUAL STA (17:12)
[2019-08-07] MEDS ORDERED: MORPHINE SULFATE 4 MG/ML SYRINGE IVP STA (17:24)
[2019-08-07] MEDS ORDERED: NITROGLYCERIN OINT 1 INCH/GM PACKET TOPICAL STA (17:33)
--- NOTE | 2019-08-07 18:01 | XR ---
EXAMINATION TYPE: XR chest 2V DATE OF EXAM: 08/07/2019 COMPARISON: 07/02/2019 HISTORY: Chest pain TECHNIQUE: Frontal and lateral views of the chest are obtained. FINDINGS: Heart and mediastinum are normal. Lungs are clear. Costophrenic angles are clear. There ar e no hilar masses. Bony thorax is intact. IMPRESSION: Normal chest. No change.
[2019-08-07 18:30] LABS: Basophils # (A) 0.1 k/uL (0-0.2); Basophils % (A) 1 %; Eosinophils # (A) 0.1 k/uL (0-0.7); Eosinophils % (A) 2 %; HCT 40.8 % (34.0-46.0); HGB 13.9 gm/dL (11.4-16.0); Lymphocytes # (A) 1.7 k/uL (1.0-4.8); Lymphocytes % (A) 21 %; MCH 29.1 pg (25.0-35.0); MCV 85.4 fL (80.0-100.0); Mean Platelet Volume 7.4; Monocytes # (A) 0.4 k/uL (0-1.0); Monocytes % (A) 4 %; Neutrophils # (A) 5.9 k/uL (1.3-7.7); Neutrophils % (A) 71 %; Platelet Count 209 k/uL (150-450); RBC 4.78 m/uL (3.80-5.40); RDW 13.8 % (11.5-15.5); WBC 8.3 k/uL (3.8-10.6)
[2019-08-07 18:39] LABS: INR 0.9 (<1.2); Partial Thromboplastin Time 22.1 sec (22.0-30.0); Prothrombin Time 9.8 sec (9.0-12.0)
[2019-08-07 18:40] LABS: Albumin 4.1 g/dL (3.5-5.0); Calcium 9.8 mg/dL (8.4-10.2); Potassium 4.3 mmol/L (3.5-5.1); Total Bilirubin 0.7 mg/dL (0.2-1.3); Total Protein 6.9 g/dL (6.3-8.2)
--- NOTE | 2019-08-07 19:40 | CT ---
EXAMINATION TYPE: CT angio chest DATE OF EXAM: 08/07/2019 7:26 PM COMPARISON: 08/23/2017 HISTORY: Chest pain radiating into her back and dizziness. CT DLP: 433.4 mGycm Automated exposure control for dose reduction was used. CONTRAST: CTA scan of the thorax is performed with IV Contrast, patient injected with 73ml mL of Isovue 370, pu lmonary embolism protocol. There are 3-D post processed images.. FINDINGS: There is minimal scarring at the right lung apex. There is mild pulmonary emphysema. There is no evid ence of a pulmonary mass. There is no pleural effusion. There is 3.5 cm cortical cyst lateral right k idney. Heart size is normal. There is no pericardial effusion. There is no mediastinal adenopathy. There is no sign of thoracic aortic aneurysm or dissection. There is normal contrast opacification of the thor acic aorta. There are no hilar masses. There are right bronchial lymph nodes that measure up to 1 cm. There is normal contrast opacification of the pulmonary arteries. There are no filling defects. The bony thorax is intact. IMPRESSION: NO EVIDENCE OF PULMONARY EMBOLISM. MINIMAL RIGHT BRONCHIAL ADENOPATHY PROBABLY DUE TO INFLAMMATORY DI SEASE. PULMONARY EMPHYSEMA. MINIMAL SCARRING AT THE RIGHT LUNG APEX.
--- NOTE | 2019-08-07 19:49 | ED ---
Chest Pain HPI - General Source: patient Mode of arrival: ambulatory Limitations: no limitations <Maria Elena Ordoñez - Last Filed: 08/07/19 20:55> <Shazia Masters - Last Filed: 08/09/19 14:39> - General Chief Complaint: Chest Pain Stated Complaint: Dizziness Time Seen by Provider: 08/07/19 17:12 - History of Present Illness Initial Comments: 68-year-old female with history of previous CVA, atrial fibrillation, CAD, HTN, HLD, vertigo presenting to the emergency Department for chief complaint of chest pain 1 hour dizziness 1 week. Patient states that 1 hour prior to presentation she had chest pressure that radiates to her back. Patient describes it as a squeezing sensation. Patient denies any arm pain and jaw pain diaphoresis. Denies known history of thoracic aneursym Patient denies any abdominal pain vomiting nausea or belching. Patient states she has had dizziness sensation ongoing for the past week. Patient states that increases with walking. Patient denies any change in chest pressure with inhalation. Patient is unsure she has had a stent placed she has an overall poor historian. Patient denies any speech changes diplopia or vision loss sensation deficit of the upper or lower extremities or face. Patient states she does get headaches on and off, denies current. Remaining ROS (-). Upon arrival patient appears well there is no signs of acute distress. (Maria Elena Ordoñez) - Related Data Home Medications Medication Instructions Recorded Confirmed Albuterol Inhaler [Ventolin Hfa 2 puff INHALATION RT-Q6H PRN 01/09/15 08/07/19 Inhaler] Albuterol Nebulized [Ventolin 2.5 mg INHALATION RT-TID PRN 09/06/17 08/07/19 Nebulized] Loperamide HCl [Imodium A-D] 2 mg PO QID PRN 09/06/17 08/07/19 Mirtazapine [Remeron] 15 mg PO HS 09/25/17 08/07/19 Naproxen Sodium [Aleve] 440 mg PO Q12HR PRN 08/07/19 08/07/19 diphenhydrAMINE HCL [Benadryl] 25 mg PO Q4H 08/07/19 08/07/19 Previous Rx's Medication Instructions Recorded Apixaban [Eliquis] 5 mg PO BID #60 tab 08/09/19 Butalb/APAP/Caff 50-325-40Mg 1 each PO Q4HR PRN #18 tab 08/09/19 [Fioricet 50-325-40] Meclizine [Antivert] 25 mg PO QID PRN #30 tab 08/09/19 Pravastatin Sodium [Pravachol] 80 mg PO HS #30 tab 08/09/19 amLODIPine [Norvasc] 5 mg PO DAILY #30 tab 08/09/19 methylPREDNISolone Dose Pack 4 mg PO DIRECTED #21 package 08/09/19 [Medrol Dose Pack] Allergies Allergy/AdvReac Type Severity Reaction Status Date / Time atorvastatin [From Lipitor] Allergy Unknown Verified 08/07/19 19:29 cephalexin monohydrate Allergy Rash/Hives Verified 08/07/19 19:29 [From Keflex] ciprofloxacin [From Cipro] Allergy Swelling Verified 08/07/19 19:29 latex Allergy Rash/Hives Verified 08/07/19 19:29 oxytetracycline Allergy Rash/Hives Verified 08/07/19 19:29 [From Terramycin] Penicillins Allergy Rash/Hives Verified 08/07/19 19:29 quetiapine fumarate Allergy Rash/Hives Verified 08/07/19 19:29 [From Seroquel] Sulfa (Sulfonamide Allergy Rash/Hives Verified 08/07/19 19:29 Antibiotics) Review of Systems ROS Other: All systems not noted in ROS Statement are negative. <Maria Elena Ordoñez - Last Filed: 08/07/19 20:55> ROS Other: All systems not noted in ROS Statement are negative. <Shazia Masters - Last Filed: 08/09/19 14:39> ROS Statement: Those systems with pertinent positive or pertinent negative responses have been documented in the HPI. EKG Findings - EKG Comments: EKG Findings:: Ventricular rate 86 bpm, OH interval 160 ms, to administration 86 ms, QT/QTC 386/461 ms. Sinus rhythm with premature supraventricular complexes. No ST elevation or depression noted. Nonspecific T-wave Abnormalities. 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 Past Anesthesia/Blood Transfusion Reactions: Previous Problems w/ Anesthesia Additional Past Anesthesia/Blood Transfusion Reaction / Comment(s): difficulty waking in past. clausterphobia Past Psychological History: Anxiety, Depression Smoking Status: Current every day smoker Past Alcohol Use History: Occasional, Rare Past Drug Use History: None Reported - Past Family History Mother Additional Family Medical History / Comment(s): Mother at age 73 from a bra in stem stroke. Brother(s) Additional Family Medical History / Comment(s): Patient has 2 full brothers with no major medical problems. Patient does not have any sisters. Patient has 3 sons with no major medical problems. Father Family Medical History: Congestive Heart Failure (CHF), Myocardial Infarction ([place]) Additional Family Medical History / Comment(s): Father at age 76 from a massive heart attack. <Maria Elena Ordoñez L - Last Filed: 08/07/19 20:55> General Exam Limitations: no limitations <Maria Elena Ordoñez - Last Filed: 08/07/19 20:55> - General Exam Comments Initial Comments: General: The patient is awake and alert, in no distress Eye: +3 mm pupils are equal, round and reactive to light, extra-ocular movements are intact. No noted nystagmus. There is normal conjunctiva bilaterally. No signs of icterus. Ears, nose, mouth and throat: There are moist mucous membranes and no oral lesions. Neck: The neck is supple, there is no tenderness or JVD. Cardiovascular: There is a regular rate and rhythm. No murmur, rub or gallop is appreciated. Respiratory: Lungs are clear to auscultation, respirations are non-labored, breath sounds are equal. No wheezes, stridor, rales, or rhonchi. Gastrointestinal: Soft, non-distended, non-tender abdomen without masses or organomegaly noted. There is no rebound or guarding present. Musculoskeletal: Normal ROM, no tenderness. Strength 5/5. Sensation intact. Radial pulses equal bilaterally 2+. Neurological: A&O x 3. CN II-XII intact, There are no obvious motor or sensory deficits. Finger to nose, heel to thakkar smooth and coordinated, no pronator drift. Speech is normal. Facial sensation and sensation of the UE and LE equal per patient. Strength equal of the UE and LE b/l. Skin: Skin is warm and dry and no rashes or lesions are noted. No LE Edema. Psychiatric: Cooperative, appropriate mood & affect (Maria Elena Ordoñez) Course <Maria Elena Ordoñez - Last Filed: 08/07/19 20:55> Vital Signs 08/07/19 08/07/19 08/07/19 16:44 18:23 19:30 Temperature 97.6 F Pulse Rate 96 92 88 Respiratory 20 18 18 Rate Blood Pressure 166/85 146/106 143/76 O2 Sat by Pulse 96 95 95 Oximetry 08/07/19 08/07/19 20:26 23:38 Temperature 98.1 F Pulse Rate 73 87 Respiratory 18 18 Rate Blood Pressure 142/80 154/81 O2 Sat by Pulse 96 96 Oximetry - Reevaluation(s) Reevaluation #1: Upon reevaluation of patient following CT angiography of the chest patient states she has persistent dizziness she states is more so the room spinning and it is lightheadedness. Patient states she wants this evaluated as well. Patient has history of vertigo. Finger-nose and heel to thakkar is within coordinated however when I attempted to ambulate patient she did appear to have vestibular symptoms. CT of the brain and C-spine was obtained at this time (-) for acute process. Discussed this PE finding with my attending Dr. Masters who is agreeable with this plan and will evaluate patient personally. 08/07/19 20:00 (Maria Elena Ordoñez) Chest Pain MDM <Maria Elena Ordoñez - Last Filed: 08/07/19 20:55> <Shazia Masters - Last Filed: 08/09/19 14:39> - [facility] 68-year-old female with extensive past history, currently off all medications including anticoagulation therapy with history of atrial fibrillation-currently in sinus. History of CVA and vertigo. Patient does not take any medications for hypertension or hyperlipidemia. Patient states she was recently taken off of all medications by primary care provider (per patient) however patient does appears to poor historian as well as her guardian who is beside. Patient has multiple complaints. Patient initially was chest pain. Patient inital troponin and EKG within acceptable limits. Patient on telemetry. Patient states CP subsided after morphine. Dizziness persists. CT of the brain wo contrast reveals no acute intracranial process. Given patient has a high HEART score and multiple risk factors with previous CAD history patient will be admitted to the hospital for serial troponins. In regards to the dizziness, patient will have neurology consultation. Patient case was discussed at length with Dr. Masters who is agreeable with admission speaking to admitting provider Dr. Horne who accepted patient admisison. Guardian agreeable with admission. (Maria Elena Ordoñez) I was available for consultation in the emergency department. The history and physical exam were done by the midlevel provider. I was consulted for this patients care. I reviewed the case with the midlevel provider and based on their presentation of the patient, I agree with the assessment, medical decision making and plan of care as documented. I evaluated the patient myself. I discussed the case with Dr. Steiner who accepted admission (Shazia Masters) Disposition Is patient prescribed a controlled substance at d/c from ED?: No Time of Disposition: 20:56 Decision to Admit Reason: Admit from EC Decision Date: 08/07/19 Decision Time: 20:56 <Maria Elena Ordoñez - Last Filed: 08/07/19 20:55> <Shazia Masters - Last Filed: 08/09/19 14:39> Clinical Impression: Chest pain, Dizziness Disposition: ADMITTED IP TO THIS HOSP Condition: Stable
[2019-08-07] MEDS ORDERED: SODIUM CHLORIDE 0.9% 500 ML 500 ML IV ONE (19:58)
--- NOTE | 2019-08-07 20:27 | CT ---
EXAMINATION TYPE: CT brain wo con DATE OF EXAM: 08/07/2019 COMPARISON: November 13, 2016 HISTORY: Dizziness CT DLP: 1100.4 mGycm Automated exposure control for dose reduction was used. FINDINGS: Ventricles and sulci appear normal. There is no mass effect nor midline shift. There is no sign of in tracranial hemorrhage. There is no evidence of cerebral edema. The calvarium is intact. Skull base is intact. There is slight increased density in the intracranial vessels consistent with recent contras t injection. IMPRESSION: NEGATIVE CT SCAN OF THE BRAIN. NO EVIDENCE OF CORTICAL INFARCT.
[2019-08-07] MEDS ORDERED: NITROGLYCERIN SL TABS 0.4 MG TAB SUBLINGUAL PRN (20:42)
[2019-08-07] MEDS ORDERED: ENOXAPARIN 40 MG/0.4 ML SYRINGE SQ SCH (22:30)
[2019-08-08 07:06] LABS: Cholesterol 291 mg/dL (<200); HDL Cholesterol 42 mg/dL (40-60); LDL Cholesterol,Calculated 216 mg/dL (0-99); Triglycerides 166 mg/dL (<150)
[2019-08-08] MEDS ORDERED: ASPIRIN 325 MG TAB PO SCH (09:00)
[2019-08-08] MEDS ORDERED: ALBUTEROL INHALER 60 PUFF/8 GM INHALER INHALATION PRN (09:25)
[2019-08-08] MEDS ORDERED: LOPERAMIDE 2 MG CAP PO PRN (09:25)
[2019-08-08] MEDS ORDERED: NAPROXEN 250 MG TAB PO PRN (09:25)
[2019-08-08] MEDS ORDERED: ALBUTEROL NEBULIZED 2.5 MG/3 ML INHALATION PRN (09:25)
--- NOTE | 2019-08-08 10:19 | P.CNNES ---
History of Present Illness Consult date: 08/08/19 Requesting physician: Maria Elena Ordoñez Reason for Consult: Dizziness Chief complaint: Dizziness History of Present Illness: This is a 68 RH female h/o afib, CVA with no residual deficits, HTN and HL who presented to the ER c/o CP and dizziness x one week. It is worsened by walking and alleviated by rest. Denies any particular head directional or postural triggers. Denies hearing changes or tinnitus. She denies a room-spinning sensation or visual disturbance. Denies other accompanying focal neuro symptoms such as drop attacks, seizure, changes in vision, diplopia, amaurosis, facial numbness or droop, bulbar symptoms, other focal numbness/weakness not mentioned above, tremors, bowel/bladder incontinence or ataxia. Denies antecedent URI or head/neck trauma. Chest still hurts. Cardiology has been consulted. Review of Systems I have performed a 14-point organ ROS with patient; pertinents are as per HPI. Past Medical History Past Medical History: Atrial Fibrillation, Asthma, Coronary Artery Disease (CAD), Chest Pain / Angina, COPD, CVA/TIA, Dementia, Fibromyalgia, GERD/Reflux, Hyperlipidemia, Hypertension, Memory Impairment, Osteoarthritis (OA), Pneumonia Additional Past Medical History / Comment(s): EARLY DEMENTIA WITH SOME SHORT TERM MEMORY LOSS, NEUROPATHY BILATERAL UPPER AND LOWER EXTREMITIES, CHRONIC BACK PAIN, DJD, CVA 2006, TIA 2007, BRONCHITIS, SINUS PROBLEMS AT TIMES, 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, BILATERAL TINNITIS, PAST L FOOT FRACTURES THAT HEALED INCORRECTLY, UTIs History of Any Multi-Drug Resistant Organisms: None Reported Past Surgical History: Bladder Surgery, Cholecystectomy, Hysterectomy, Orthop edic Surgery, Tonsillectomy, Tubal Ligation Additional Past Surgical History / Comment(s): 2013 CARDIAC CATH TX MEDICALLY, BENIGN OVARIAN TUMOR REMOVAL, BENIGN PERINEAL TUMOR REMOVAL, BILATERAL VOCAL CORDS STRIPPED D/T TUMORS, FIRST 2 FINGER r HAND PARTIAL AMP D/T INJURY, 2 BLADDER SUSPENSIONS, COLONOSCOPY/HEMORRHOIDECTOMY. Past Anesthesia/Blood Transfusion Reactions: Previous Problems w/ Anesthesia Additional Past Anesthesia/Blood Transfusion Reaction / Comment(s): difficulty waking in past. clausterphobia Past Psychological History: Anxiety, Depression Additional Psychological History / Comment(s): Pt lives with son right now with 1 cat. pt uses a wheeled walker or a cane. Can drive but has no car so she takes the bus. Pt had a counselor from [employer] that cames to home once a week but states she no longer has this because it never helped her. Pt denies thoughts/plans of suicide. Smoking Status: Current every day smoker Past Alcohol Use History: Occasional, Rare Additional Past Alcohol Use History / Comment(s): Started smoking at age 15 or 16 up to 2-1/2 packs per day and is currently down to 1ppd. Patient does give history of heavy alcohol abuse off and on in the past but had quit alcohol completely 3 years ago. She does smoke marijuana but does not have any medical marijuana card. Past Drug Use History: None Reported - Past Family History Mother Additional Family Medical History / Comment(s): Mother at age 73 from a brain stem stroke. Brother(s) Additional Family Medical History / Comment(s): Patient has 2 full brothers with no major medical problems. Patient does not have any sisters. Patient has 3 sons with no major medical problems. Father Family Medical History: Congestive Heart Failure (CHF), Myocardial Infarction ([place]) Additional Family Medical History / Comment(s): Father at age 76 from a massive heart attack. Medications and Allergies Home Medications Medication Instructions Recorded Confirmed Type Albuterol Inhaler [Ventolin Hfa 2 puff INHALATION RT-Q6H PRN 01/09/15 08/07/19 History Inhaler] Albuterol Nebulized [Ventolin 2.5 mg INHALATION RT-TID PRN 09/06/17 08/07/19 History Nebulized] Loperamide HCl [Imodium A-D] 2 mg PO QID PRN 09/06/17 08/07/19 History Mirtazapine [Remeron] 15 mg PO HS 09/25/17 08/07/19 History Naproxen Sodium [Aleve] 440 mg PO Q12HR PRN 08/07/19 08/07/19 History diphenhydrAMINE HCL [Benadryl] 25 mg PO Q4H 08/07/19 08/07/19 History Allergies Allergy/AdvReac Type Severity Reaction Status Date / Time atorvastatin [From Lipitor] Allergy Unknown Verified 08/07/19 19:29 cephalexin monohydrate Allergy Rash/Hives Verified 08/07/19 19:29 [From Keflex] ciprofloxacin [From Cipro] Allergy Swelling Verified 08/07/19 19:29 latex Allergy Rash/Hives Verified 08/07/19 19:29 oxytetracycline Allergy Rash/Hives Verified 08/07/19 19:29 [From Terramycin] Penicillins Allergy Rash/Hives Verified 08/07/19 19:29 quetiapine fumarate Allergy Rash/Hives Verified 08/07/19 19:29 [From Seroquel] Sulfa (Sulfonamide Allergy Rash/Hives Verified 08/07/19 19:29 Antibiotics) Physical Examination - Vital Signs Vital Signs: Vital Signs Temp Pulse Pulse Resp BP BP Pulse Ox 08/08/19 08:11 98.1 F 61 17 136/59 92 L 08/08/19 04:00 98.1 F 66 17 160/81 97 08/08/19 00:04 97.6 F 77 18 168/79 96 08/08/19 00:00 77 18 08/07/19 23:38 98.1 F 87 18 154/81 96 08/07/19 20:26 73 18 142/80 96 08/07/19 19:30 88 18 143/76 95 08/07/19 18:23 92 18 146/106 95 08/07/19 16:44 97.6 F 96 20 166/85 96 Intake and Output 08/07/19 08/08/19 08/08/19 22:59 06:59 14:59 Other: Voiding Method Toilet # Voids 2 # Bowel Movements 1 Weight 87.997 kg 89 kg Gen NAD Pleasant and cooperative HEENT NCAT Sclera without icterus O/P clear Neck Supple No carotid bruit Cor RRR no m/r/g Lungs CTAB Abd Soft NTND +BS Ext Warm to touch No edema Neuro MS A+Ox4 Normal fluency Able to follow all commands CN PERRL VFF no APD EOMI no nystagmus on [place] no skew deviation or MARY No facial asymmetry [place]'s symmetric Hearing intact to normal voice bilaterally Speech not dysarthric Equal elevation of palate Tongue midline Sym shrug and SCM bilaterally Motor Normal bulk/tone No pronator drift No tremors Strength 5/5 sym throughout Sens Intact to LT x4 No neglect Coord No dysmetria on FTN bilaterally DTRs 2+/4 sym throughout Toes downgoing bilaterally No clonus at achilles Gait Deferred NIHSS 0 Results - Laboratory Findings CBC and BMP: 08/07/19 18:18 08/07/19 18:18 Abnormal Lab Findings: Abnormal Labs 08/07/19 08/08/19 18:18 06:05 BUN 21 H Triglycerides 166 H Cholesterol 291 H LDL Cholesterol, Calc 216 H - Diagnostic Findings Additional findings: CT Head wo cont 08/08/19. Normal CT Head. No ICH. Nil acute. I have reviewed neuroimages myself. Assessment and Plan Assessment: Dizziness x 1 week. Non-focal exam. r/o cardiac/hemodynamic etiologies Plan: -CT Head results d/w patient -Carotid duplex ordered -TTE already ordered -Check TSH and B12 -Continue aspirin 325mg/day -Her LDL is grossly not at goal, but she has a allergy to atorvastatin. Defer to cardiology to choose another lipid lowering agent -Cardiology consulted -Given non-focal exam, will hold on MRI Brain at this time. But, if cardiac work-up unrevealing and patient does not respond to medical treatment, further neuroimaging may be considered then -Cardiac rehab consulted -d/w patient in detail. All questions answered -Neurology will be available again on 08/11/19. Thank you for this consultation. Please call with ?. Time with Patient: Greater than 30 (Time spent in direct patient care, greater than 50% of which was spent in [id number] counseling and coordination of care: 70 minutes)
--- NOTE | 2019-08-08 12:01 | ECHOF ---
Referral Reason:chest pain, hx afib MEASUREMENTS -------- HEIGHT: 165.1 cm WEIGHT: 88.9 kg BP: 160/81 RVIDd: 3.6 cm (< 3.3) IVSd: 1.4 cm (0.6 - 1.1) LVIDd: 3.7 cm (3.9 - 5.3) LVPWd: 1.5 cm (0.6 - 1.1) IVSs: 1.8 cm LVIDs: 2.5 cm LVPWs: 1.7 cm LAESV Index (A-L): 41.93 ml/m Ao Diam: 2.9 cm (2.0 - 3.7) AV Cusp: 1.6 cm (1.5 - 2.6) LA Diam: 3.4 cm (2.7 - 3.8) EPSS: 0.6 cm MV E Kaleb: 1.32 m/s MV DecT: 217 ms MV A Kaleb: 1.01 m/s MV E/A Ratio: 1.32 MV EF SLOPE: 63.18 mm/s (70 - 150) MV EXCURSION: 1.56 cm (> 18.000) FINDINGS -------- Sinus rhythm. This was a technically adequate study. The left ventricular size is normal. There is mild concentric left ventricular hypertrophy. Overa ll left ventricular systolic function is normal with, an EF between 55 - 60 %. Pseudonormal LV fill ing pattern, consistent with elevated LA pressure. The right ventricle is moderately enlarged. Left atrium is severely dilated by volume. The right atrial size is normal. Interatrial and interventricular septum intact. The aortic valve was not well visualized. The mitral valve leaflets are mildly thickened. There is trace mitral regurgitation. Trace tricuspid regurgitation present. Unable to estimate RVSP due to inadequate TR jet spectral do ppler profile. The pulmonic valve was not well visualized. There is no pulmonic regurgitation present. The aortic root size is normal. IVC not well visualized There is no pericardial effusion. CONCLUSIONS -------- 1. Sinus rhythm. 2. The left ventricular size is normal. 3. There is mild concentric left ventricular hypertrophy. 4. Overall left ventricular systolic function is normal with, an EF between 55 - 60 %. 5. Pseudonormal LV filling pattern, consistent with elevate LA pressure. 6. The right ventricle is moderately enlarged. 7. Left atrium is severely dilated by volume. 8. The aortic valve was not well visualized. 9. The mitral valve leaflets are mildly thickened. 10. There is trace mitral regurgitation. 11. Trace tricuspid regurgitation present. 12. Unable to estimate RVSP due to inadequate TR jet spectral doppler profile. 13. The pulmonic valve was not well visualized. 14. The aortic root size is normal. 15. IVC not well visualized 16. There is no pericardial effusion. INGOT STRIPPER: Ilsa No RDCS
[2019-08-08] MEDS: MECLIZINE 25 MG TAB PO PRN (12:20)
[2019-08-08] MEDS: methylPREDNISolone SOD SUCCI 125 MG/2 ML VIAL IV SCH ×3 (12:20→23:33)
[2019-08-08] MEDS: APIXABAN 5 MG TAB PO SCH ×2 (12:20→21:14)
[2019-08-08] MEDS: INSULIN ASPART (NovoLOG) 100 UNIT/ML VIAL SQ SCH ×3 (12:21→21:14)
--- NOTE | 2019-08-08 12:42 | US ---
EXAMINATION TYPE: US carotid duplex BILAT DATE OF EXAM: 08/08/2019 COMPARISON: Carotid Doppler ultrasound CLINICAL HISTORY: dizziness. dizziness for 1-2 weeks, blurred vision EXAM MEASUREMENTS: RIGHT: Peak Systolic Velocity (PSV) cm/sec ----- Right CCA: 71.1 ----- Right ICA: 194.9 ----- Right ECA: 108.1 ICA/CCA ratio: 2.7 RIGHT: End Diastole cm/sec ----- Right CCA: 15.9 ----- Right ICA: 43.9 ----- Right ECA: 14.4 LEFT: Peak Systolic Velocity (PSV) cm/sec ----- Left CCA: 112.9 ----- Left ICA: 162.4 ----- Left ECA: 112.9 ICA/CCA ratio: 1.4 LEFT: End Diastole cm/sec ----- Left CCA: 25.7 ----- Left ICA: 39.3 ----- Left ECA: 6.3 VERTEBRALS (direction of flow): Right Vertebral: Antegrade Left Vertebral: Antegrade Benson scale, color Doppler, spectral Doppler imaging performed of the carotid arteries. Moderate to se fabiola plaque noted bilateral bifurcations. Increased velocities right ICA and left ICA. Incidental not e of possible cardiac arrhythmia. Waveform analysis show significant stenosis of the proximal internal carotid artery on the right, the re is spectral broadening, loss of the systolic window. There is elevated peak systolic velocity in t he proximal internal carotid artery on the left without elevated ratio of internal carotid to common carotid artery. Waveform analysis doesn't show loss of the systolic window, spectral broadening howev er. IMPRESSION: Hemodynamic significant stenosis of the proximal internal carotid artery on the right co rresponding to 50-69% diameter reduction by Doppler criteria, an indirect measurement of carotid sten osis. Possible carotid stenosis on the left as described. Consider carotid CTA for better evaluation. Criteria for Assigning % of Stenosis / Diameter reduction (Estimation based on the indirect measurements of the internal carotid artery velocities (ICA PSV). 1. Normal (no stenosis)=ICA PSV < 125 cm/s: ratio < 2.0: ICA EDV<40 cm/s. 2. Less than 50% stenosis=ICA PSV < 125 cm/s: ratio < 2.0: ICA EDV<40 cm/s. 3. 50 to 69% stenosis=ICA PSV of 125 to 230 cm/s: ration 2.0 ? 4.0: ICA EDV 40-100 cm/s. 4. Greater than 70% stenosis to near occlusion= ICA PSV > 230 cm/s: ratio > 4.0: ICA EDV > 100 cm/s. 5. Near occlusion= ICA PSV velocities may be low or undetectable: variable ratio and ICA EDV. 6. Total occlusion=unable to detect flow.
--- NOTE | 2019-08-08 13:47 | P.HPIM ---
History of Present Illness H&P Date: 08/08/19 This is a 68-year-old female patient of Dr. Brito with past medical history of atrial fibrillation, CVA, dementia, fibromyalgia, osteoarthritis, hypertension, hyperlipidemia, hiatal hernia, osteoporosis, neuropathy, headaches, glaucoma, COPD and chronic smoker. Her last hospitalization was in August 2017 which time she was treated for paroxysmal atrial fibrillation placed on Cardizem and eliquis. Patient states she followed up and was told she could stop eliquis. Patient states she follows with Dr. Clifton would but still would has been out of practice in the area for greater than 1 year. Patient gives history of being sick last month with a fever or cough and went to urgent care and was given 2 antibiotics, a steroid and another medications she does not recall the name or what it was for. She improved until about a week ago she started feeling dizzy. Yesterday she had onset of chest pressure. She states the chest pressure occurs at any time. She has a cough with phlegm production that is mostly clear. She has followed in the past with Dr. Milligan for a stroke with facial droop on the right side that resolved and also dementia. She states the main reason for her coming in the hospital was for dizziness. She states it happens anytime she moves or yawns and the room is spinning. She states both arms are weak and this has been on and off for 1 year. Yesterday her hands were numb. She denies any change in her legs. She states she does have some chronic neck pain. She complains of headache that she has all the time. Headache starts in the occipital area and travels diagonally across to the opposite eye. She states she also has TMJ. She does not sleep well. She also complains of wheezing. Patient has a nebulizer at home which she has been using. She does not have oxygen or CPAP. Patient is not currently on a statin and she states that her doctor took her off all of her medications. She has tried Lipitor and unable to tolerate in the past. We did send through a prescription for Crestor which is not covered by her insurance but all other statins are covered. Patient presented to [facility] emergency center for evalu ation. She was found to be afebrile, blood pressure 166/85, heart rate 96, pulse ox 96% on room air. CBC was unremarkable, electrolytes within normal limits, BUN 21 creatinine 0.97, liver function test within normal limits. Troponins negative on 3 draws. Triglycerides 166, cholesterol 291, LDL 216, HDL 42. TSH 2.750. CAT scan angiogram of the chest was negative for pulmonary embolism. Minimal bronchial adenopathy probably due to inflammatory disease. Pulmonary emphysema. Minimal scarring at the right lung apex. CAT scan of the brain reveals no acute intracranial process Carotid duplex revealed hemodynamically significant stenosis of the proximal internal carotid artery on the right corresponding to 50-69%. Possible carotid stenosis on the left. Consider carotid CTA which will be ordered Echocardiogram reveals EF 55-60% with mild concentric left hypertrophy, trace mitral regurgitation, trace tricuspid regurgitation, RVSP unable to calculate. Patient was admitted to the cardiac stepdown unit and cardiology consult, neurology consult requested. Patient has been seen by neurology for dizziness. B12 level is pending. No plan for MRI of the brain. Review of Systems Constitutional: Reports fatigue, Denies anorexia, Denies chills, Denies fever, Denies malaise Eyes: bilateral blurred vision, denies diplopia Ears, nose, mouth and throat: Reports headache, Reports vertigo, Denies dyspha emli, Denies nasal congestion, Denies nasal discharge, Denies sore throat Cardiovascular: Reports chest pain, Denies decreased exercise tolerance, Denies dyspnea on exertion, Denies edema, Denies shortness of breath, Denies syncope Respiratory: Reports cough, Reports cough with sputum, Reports dyspnea, Reports wheezing, Denies excessive sputum, Denies hemoptysis, Denies home oxygen Gastrointestinal: Denies abdominal pain, Denies diarrhea, Denies loss of appetite, Denies nausea, Denies vomiting Genitourinary: Denies dysuria, Denies hematuria, Denies urgency, Denies urinary frequency Musculoskeletal: Denies frequent falls, Denies gait dysfunction, Denies muscle weakness, Denies myalgias Integumentary: Denies pruritus, Denies rash, Denies wounds Neurological: Reports headaches, Reports migraines, Reports vertigo, Reports weakness (Bilateral upper extremities), Denies change in mentation, Denies change in speech, Denies confusion, Denies gait dysfunction, Denies seizures, Denies syncope Psychiatric: Denies anxiety, Denies depression Endocrine: Denies fatigue, Denies weight change Past Medical History Past Medical History: Atrial Fibrillation, Asthma, Coronary Artery Disease (CAD), Chest Pain / Angina, COPD, CVA/TIA, Dementia, Fibromyalgia, GERD/Reflux, Hyperlipidemia, Hypertension, Memory Impairment, Osteoarthritis (OA), Pneumonia Additional Past Medical History / Comment(s): EARLY DEMENTIA WITH SOME SHORT TERM MEMORY LOSS, NEUROPATHY BILATERAL UPPER AND LOWER EXTREMITIES, CHRONIC BACK PAIN, DJD, CVA 2006, TIA 2007, BRONCHITIS, SINUS PROBLEMS AT TIMES, 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, BILATERAL TINNITIS, PAST L FOOT FRACTURES THAT HEALED INCORRECTLY, UTIs History of Any Multi-Drug Resistant Organisms: None Reported Past Surgical History: Bladder Surgery, Cholecystectomy, Hysterectomy, Orthopedic Surgery, Tonsillectomy, Tubal Ligation Additional Past Surgical History / Comment(s): 2013 CARDIAC CATH TX MEDICALLY, BENIGN OVARIAN TUMOR REMOVAL, BENIGN PERINEAL TUMOR REMOVAL, BILATERAL VOCAL COR DS STRIPPED D/T TUMORS, FIRST 2 FINGER r HAND PARTIAL AMP D/T INJURY, 2 BLADDER SUSPENSIONS, COLONOSCOPY/HEMORRHOIDECTOMY. Past Anesthesia/Blood Transfusion Reactions: Previous Problems w/ Anesthesia Additional Past Anesthesia/Blood Transfusion Reaction / Comment(s): difficulty waking in past. clausterphobia Past Psychological History: Anxiety, Depression Additional Psychological History / Comment(s): Pt lives with son right now with 1 cat. pt uses a wheeled walker or a cane. Can drive but has no car so she takes the bus. Pt had a counselor from [email or web address] that cames to home once a week but states she no longer has this because it never helped her. Pt denies thoughts/plans of suicide. Smoking Status: Current every day smoker Past Alcohol Use History: Occasional, Rare Additional Past Alcohol Use History / Comment(s): Started smoking at age 15 or 16 up to 2-1/2 packs per day and is currently down to 1ppd. Patient does give history of heavy alcohol abuse off and on in the past but had quit alcohol completely 3 years ago. She does smoke marijuana but does not have any medical marijuana card. Past Drug Use History: None Reported - Past Family History Mother Additional Family Medical History / Comment(s): Mother at age 73 from a brain stem stroke. Brother(s) Additional Family Medical History / Comment(s): Patient has 2 full brothers with no major medical problems. Patient does not have any sisters. Patient has 3 sons with no major medical problems. Father Family Medical History: Congestive Heart Failure (CHF), Myocardial Infarction ([place]) Additional Family Medical History / Comment(s): Father at age 76 from a massive heart attack. Medications and Allergies Home Medications Medication Instructions Recorded Confirmed Type Albuterol Inhaler [Ventolin Hfa 2 puff INHALATION RT-Q6H PRN 01/09/15 08/07/19 History Inhaler] Albuterol Nebulized [Ventolin 2.5 mg INHALATION RT-TID PRN 09/06/17 08/07/19 History Nebulized] Loperamide HCl [Imodium A-D] 2 mg PO QID PRN 09/06/17 08/07/19 History Mirtazapine [Remeron] 15 mg PO HS 09/25/17 08/07/19 History Naproxen Sodium [Aleve] 440 mg PO Q12HR PRN 08/07/19 08/07/19 History diphenhydrAMINE HCL [Benadryl] 25 mg PO Q4H 08/07/19 08/07/19 History Allergies Allergy/AdvReac Type Severity Reaction Status Date / Time atorvastatin [From Lipitor] Allergy Unknown Verified 08/07/19 19:29 cephalexin monohydrate Allergy Rash/Hives Verified 08/07/19 19:29 [From Keflex] ciprofloxacin [From Cipro] Allergy Swelling Verified 08/07/19 19:29 latex Allergy Rash/Hives Verified 08/07/19 19:29 oxytetracycline Allergy Rash/Hives Verified 08/07/19 19:29 [From Terramycin] Penicillins Allergy Rash/Hives Verified 08/07/19 19:29 quetiapine fumarate Allergy Rash/Hives Verified 08/07/19 19:29 [From Seroquel] Sulfa (Sulfonamide Allergy Rash/Hives Verified 08/07/19 19:29 Antibiotics) Physical Exam Vitals: Vital Signs Temp Pulse Pulse Resp BP BP Pulse Ox 08/08/19 08:11 98.1 F 61 17 136/59 92 L 08/08/19 04:00 98.1 F 66 17 160/81 97 08/08/19 00:04 97.6 F 77 18 168/79 96 08/08/19 00:00 77 18 08/07/19 23:38 98.1 F 87 18 154/81 96 08/07/19 20:26 73 18 142/80 96 09/26/19 19:30 88 18 143/76 95 08/07/19 18:23 92 18 146/106 95 08/07/19 16:44 97.6 F 96 20 166/85 96 Intake and Output 08/07/19 08/08/19 08/08/19 22:59 06:59 14:59 Output Total 300 Balance -300 Output: Urine 300 Other: Voiding Method Toilet # Voids 2 1 # Bowel Movements 1 Weight 87.997 kg 89 kg - Constitutional General appearance: average body habitus, cooperative, no acute distress - EENT Eyes: EOMI, PERRLA, normal appearance (Patient has tenderness to the occipital lobes with palpation.) - Neck Neck: no lymphadenopathy, normal ROM, no rigidity - Respiratory Respiratory: bilateral: wheezing - Cardiovascular Rhythm: regular Heart sounds: normal: S1, S2 Abnormal Heart Sounds: no systolic murmur, no diastolic murmur - Gastrointestinal General gastrointestinal: no organomegaly, soft, no tenderness - Integumentary Integumentary: normal - Neurologic Neurologic: CNII-XII intact - Musculoskeletal Musculoskeletal: strength equal bilaterally, no right sided weakness, no left sided weakness - Psychiatric Psychiatric: A&O x's 3, appropriate affect, intact judgment & insight Results CBC & Chem 7: 08/07/19 18:18 08/07/19 18:18 Labs: Abnormal Lab Results - Last 24 Hours (Table) 08/07/19 08/08/19 Range/Units 18:18 06:05 BUN 21 H (7-17) mg/dL Triglycerides 166 H (<150) mg/dL Cholesterol 291 H (<200) mg/dL LDL Cholesterol, Calc 216 H (0-99) mg/dL Thrombosis Risk Factor Assmnt - DVT/VTE Prophylaxis DVT/VTE Prophylaxis: Pharmacologic Prophylaxis ordered - Choose All That Apply Any of the Below Risk Factors Present?: No Other Risk Factors: Yes Each Risk Factor Represents 2 Points: Age 61-74 years Other congenital or acquired thrombophilia - If yes, enter type in comment: No Thrombosis Risk Factor Assessment Total Risk Factor Score: 2 Thrombosis Risk Factor Assessment Level: Low Risk Assessment and Plan Plan: 1. Chest pain secondary to costochondritis. Cardiology consult appreciated. Telemetry will be discontinued and patient transferred to [facility] floor. 2. Headache, migraine headache with occipital neuralgia along with insomnia. Flexeril 10 mg at bedtime. Sed rate ordered. 3. History of stroke with no lateralized symptoms. Patient is complaining of weakness to the bilateral arms on and off for 1 year. Patient started on eliquis 5 mg twice daily, aspirin reduced 81 mg daily, pravastatin 80 mg at bedtime. 4. COPD with acute exacerbation. Patient started on DuoNeb treatments 4 times daily, Solu-Medrol 60 mg IV every 6 hours 5. Hypertension. The patient not currently on medication. Monitor blood pressure 6. Hyperlipidemia. The patient started on pravastatin. She states she is unable to tolerate atorvastatin. 7. History of atrial fibrillation, paroxysmal, currently in a sinus rhythm. Osmani rouse will be started on eliquis 5 mg twice daily. 8. Tobacco use and dependence. Smoking cessation. 9. GI prophylaxis. Pepcid. 10. DVT prophylaxis. Eliquis. Patient will be admitted to the hospital for a minimum of 2 night stay. Discharge plan: Home on Sunday or Sunday Impression and plan of care have been directed as dictated by the signing physician. Keyla Holloway nurse practitioner acting as scribe for signing physician.
--- NOTE | 2019-08-08 13:58 | P.CRDCN ---
History of Present Illness History of present illness: This is a pleasant 60-year-old female past medical history significant for paroxysmal atrial fibrillation, COPD, dementia, hypertension, dyslipidemia, CVA and chronic nicotine dependence. She is to follow-up in the office with Dr. Christianson however has not been seen since 2017. In 2017 she was seen in the hospital and diagnosed with atrial fibrillation and placed on Cardizem and Eliquis. She is no longer taking these medications. She is somewhat of a poor historian and information is obtained from the medical record as well as nursing staff. She presented to the hospital with symptoms of dizziness like the room was spinning made worse by position changes and a right-sided pleuritic chest pain. She states she has felt dizzy constantly for the previous one week. Her symptoms are made worse by position changes with no specific alleviating factor. The pain in the right side of her chest has been intermittent for the previous 3 days and is made worse by deep inspiration or movement of her torso. The pain is also reproducible on palpation. She denies any left precordial chest pain, there is no pain in the back, neck or jaw. She denies shortness of breath, palpitations, nausea, vomiting or diaphoresis. EKG reveals sinus mechanism with sinus arrhythmia. No acute ST or T wave abnormalities noted. Chest x-ray is negative for an acute cardiopulmonary process. CT chest negative for pulmonary embolism. CT brain is negative for an acute intracranial process. Bilateral carotid Doppler reveals hemodynamic significant stenosis of the proximal ICA on the right corresponding to 50-69% reduction in the diameter. Possible carotid stenosis on the left. Consider carotid CT for better evaluation. Echocardiogram obtained reveals preserved LV systolic function with ejection fraction 55-60%. Of note she was in sinus rhythm at the time of her echocardiogram. Telemetry tracings reviewed and reveal persistent sinus mechanism. Laboratory data reviewed, cardiac enzymes negative 3, CBC unremarkable, sodium 142, potassium 4.3, creatinine 0.97, magnesium 2.0, LDL 216, TSH 2.75. She currently takes no daily cardiac medications. She underwent cardiac catheterization in 2012 that revealed mild non-obstructive CAD. At the time of my exam: CONSTITUTIONAL: Denies fever. Denies chills. EYES: Denies blurred vision. Denies vision changes. Denies eye pain. EARS, NOSE, MOUTH & THROAT: Denies headache. Denies sore throat. Denies ear pain. CARDIOVASCULAR: Denies chest pain. Denies shortness of breath. Denies orthopnea. Denies PND. Denies palpitations. RESPIRATORY: Denies cough. GASTROINTESTINAL: Denies abdominal pain. Denies diarrhea. Denies constipation. Denies nausea. Denies vomiting. MUSCULOSKELETAL: Denies myalgias. INTEGUMENTARY: Denies pruitis. Denies rash. NEUROLOGIC: Denies numbness. Denies tingling. Denies weakness. PSYCHIATRIC: Denies anxiety. Denies depression. ENDOCRINE: Denies fatigue. Denies weight change. Denies polydipsia. Denies polyurina. GENITOURINARY: Denies burning, hematuria or urgency with micturation. HEMATOLOGIC: Denies history of anemia. Denies bleeding. Blood pressure 147/65 heart rate 58 afebrile maintaining oxygen saturation on room air GENERAL: This is a 68-year-old female in no apparent distress at the time of my examination. HEENT: Head is atraumatic, normocephalic. Pupils are equal, round. Sclerae anicteric. Conjunctivae are clear. Mucous membranes of the mouth are moist. Neck is supple. There is no jugular venous distention. No carotid bruit is heard. LUNGS: Clear to auscultation no wheezes, rales or rhonchi. No chest wall tenderness is noted on palpation or with deep breathing. Diminished bilaterally. HEART: Regular rate and rhythm without murmurs, rubs or gallops. S1 and S2 heard. ABDOMEN: Soft, nontender. Bowel sounds are heard. No organomegaly noted. EXTREMITIES: No evidence of peripheral edema and no calf tenderness noted. VASCULAR: Radial and dorsalis pedis pulses palpated, no evidence of clubbing. NEUROLOGIC: Patient is awake, alert and oriented x3. ASSESSMENT Chest pain, pleuritic on the right side of the chest. Atypical for angina. An acute coronary event has been ruled out. Dizziness suggestive of vertigo. No cardiac etiology at this point. Carotid artery disease, scheduled to undergo CTA neck Paroxysmal atrial fibrillation not taking terminal supervisor anti-coagulation for unknown reason. She states her PCP took her off. Currently maintaining sinus mechanism throughout this admission. COPD Dyslipidemia Hypertension CVA in the past Dementia Chronic nicotine dependence PLAN An acute coronary event has been ruled out. Pain is atypical and pleurirtic. Will request a d-dimer. Check for orthostatic changes. Primary team has resumed eliquis and initiated pravastatin. Ongoing medical management. No evidence to suggest her dizziness is related to cardiac etiology. Her di zziness is ongoing and persistent and telemetry is unremarkable for arrhythmia. Smoking cessation highly recommended. We will continue to follow as needed, thank you kindly for this consultation. Nurse Practitioner note has been reviewed, I agree with a documented findings and plan of care. Patient was seen and examined. 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 Past Anesthesia/Blood Transfusion Reactions: Previous Problems w/ Anesthesia Additional Past Anesthesia/Blood Transfusion Reaction / Comment(s): difficulty waking in past. clausterphobia Past Psychological History: Anxiety, Depression Additional Psychological History / Comment(s): Pt lives with son right now with 1 cat. pt uses a wheeled walker or a cane. Can drive but has no car so she takes the bus. Pt had a counselor from [facility] that cames to home once a week but states she no longer has this because it never helped her. Pt denies thoughts/plans of suicide. Smoking Status: Current every day smoker Past Alcohol Use History: Occasional, Rare Additional Past Alcohol Use History / Comment(s): Started smoking at age 15 or 16 up to 2-1/2 packs per day and is currently down to 1ppd. Patient does give history of heavy alcohol abuse off and on in the past but had quit alcohol completely 3 years ago. She does smoke marijuana but does not have any medical marijuana card. Past Drug Use History: None Reported - Past Family History Mother Additional Family Medical History / Comment(s): Mother at age 73 from a brain stem stroke. Brother(s) Additional Family Medical History / Comment(s): Patient has 2 full brothers with no major medical problems. Patient does not have any sisters. Patient has 3 sons with no major medical problems. Father Family Medical History: Congestive Heart Failure (CHF), Myocardial Infarction (PR) Additional Family Medical History / Comment(s): Father at age 76 from a massive heart attack. Medications and Allergies Home Medications Medication Instructions Recorded Confirmed Type Albuterol Inhaler [Ventolin Hfa 2 puff INHALATION RT-Q6H PRN 01/09/15 08/07/19 History Inhaler] Albuterol Nebulized [Ventolin 2.5 mg INHALATION RT-TID PRN 09/06/17 08/07/19 History Nebulized] Loperamide HCl [Imodium A-D] 2 mg PO QID PRN 09/06/17 08/07/19 History Mirtazapine [Remeron] 15 mg PO HS 09/25/17 08/07/19 History Naproxen Sodium [Aleve] 440 mg PO Q12HR PRN 08/07/19 08/07/19 History diphenhydrAMINE HCL [Benadryl] 25 mg PO Q4H 08/07/19 08/07/19 History Allergies Allergy/AdvReac Type Severity Reaction Status Date / Time atorvastatin [From Lipitor] Allergy Unknown Verified 08/07/19 19:29 cephalexin monohydrate Allergy Rash/Hives Verified 08/07/19 19:29 [From Keflex] ciprofloxacin [From Cipro] Allergy Swelling Verified 08/07/19 19:29 latex Allergy Rash/Hives Verified 08/07/19 19:29 oxytetracycline Allergy Rash/Hives Verified 08/07/19 19:29 [From Terramycin] Penicillins Allergy Rash/Hives Verified 08/07/19 19:29 quetiapine fumarate Allergy Rash/Hives Verified 08/07/19 19:29 [From Seroquel] Sulfa (Sulfonamide Allergy Rash/Hives Verified 08/07/19 19:29 Antibiotics) Physical Exam Vitals: Vital Signs Temp Pulse Pulse Resp BP BP Pulse Ox 08/08/19 11:54 98.0 F 58 L 17 147/65 97 08/08/19 08:11 98.1 F 61 17 136/59 92 L 08/08/19 04:00 98.1 F 66 17 160/81 97 08/08/19 00:04 97.6 F 77 18 168/79 96 08/08/19 00:00 77 18 08/07/19 23:38 98.1 F 87 18 154/81 96 08/07/19 20:26 73 18 142/80 96 08/07/19 19:30 88 18 143/76 95 08/07/19 18:23 92 18 146/106 95 08/07/19 16:44 97.6 F 96 20 166/85 96 Intake and Output 08/07/19 08/08/19 08/08/19 22:59 06:59 14:59 Intake Total 240 Output Total 450 Balance -210 Intake: Oral 240 Output: Urine 450 Other: Voiding Method Toilet # Voids 2 1 # Bowel Movements 1 Weight 87.997 kg 89 kg Results 08/07/19 18:18 08/07/19 18:18 Cardiac Enzymes 08/07/19 08/07/19 08/08/19 Range/Units 18:18 18:18 00:53 AST 19 (14-36) U/L Troponin I <0.012 <0.012 (0.000-0.034) ng/mL 08/08/19 Range/Units 06:05 AST (14-36) U/L Troponin I <0.012 (0.000-0.034) ng/mL Coagulation 08/07/19 Range/Units 18:18 PT 9.8 (9.0-12.0) sec APTT 22.1 (22.0-30.0) sec Lipids 08/08/19 Range/Units 06:05 Triglycerides 166 H (<150) mg/dL Cholesterol 291 H (<200) mg/dL HDL Cholesterol 42 (40-60) mg/dL CBC 08/07/19 Range/Units 18:18 WBC 8.3 (3.8-10.6) k/uL RBC 4.78 (3.80-5.40) m/uL Hgb 13.9 (11.4-16.0) gm/dL Hct 40.8 (34.0-46.0) % Plt Count 209 (150-450) k/uL Comprehensive Metabolic Panel 08/07/19 Range/Units 18:18 Sodium 142 (137-145) mmol/L Potassium 4.3 (3.5-5.1) mmol/L Chloride 105 (98-107) mmol/L Carbon Dioxide 30 (22-30) mmol/L BUN 21 H (7-17) mg/dL Creatinine 0.97 (0.52-1.04) mg/dL Glucose 93 (74-99) mg/dL Calcium 9.8 (8.4-10.2) mg/dL AST 19 (14-36) U/L ALT 19 (9-52) U/L Alkaline Phosphatase 84 (38-126) U/L Total Protein 6.9 (6.3-8.2) g/dL Albumin 4.1 (3.5-5.0) g/dL Current Medications Generic Name Dose Route Start Last Admin Trade Name Freq PRN Reason Stop Dose Admin Acetaminophen 650 mg 08/08/19 09:26 Tylenol Tab PO Q6HR PRN Fever and/ or MILD Pain Albuterol Sulfate 2.5 mg 08/08/19 09:25 Ventolin Nebulized INHALATION RT-TID PRN Wheezing Apixaban 5 mg 08/08/19 12:15 08/08/19 12:20 Eliquis PO 5 mg BID GISELE Administration Aspirin 81 mg 08/09/19 09:00 Aspirin PO DAILY GISELE Cyclobenzaprine HCl 10 mg 08/08/19 21:00 Flexeril PO HS GISELE Insulin Aspart 0 unit 08/08/19 12:30 08/08/19 12:21 Novolog SQ Not Given ACHS [facility] Protocol Loperamide HCl 2 mg 08/08/19 09:25 Imodium PO QID PRN Diarrhea Meclizine HCl 25 mg 08/08/19 12:09 08/08/19 12:20 Antivert PO 25 mg TID PRN Administration Vertigo Methylprednisolone Sodium Succinate 60 mg 08/08/19 12:15 08/08/19 12:20 Solu-Medrol IV 60 mg Q6HR GISELE Administration Mirtazapine 15 mg 08/08/19 21:00 Remeron PO HS GISELE Nitroglycerin 0.4 mg 08/07/19 20:42 Nitrostat SUBLINGUAL Q5M PRN Chest Pain Pravastatin Sodium 80 mg 08/08/19 21:00 Pravachol PO HS GISELE Intake and Output 08/07/19 08/08/19 08/08/19 22:59 06:59 14:59 Intake Total 240 Output Total 450 Balance -210 Intake: Oral 240 Output: Urine 450 Other: Voiding Method Toilet # Voids 2 1 # Bowel Movements 1 Weight 87.997 kg 89 kg 08/07/19 18:18 08/07/19 18:18
--- NOTE | 2019-08-08 14:37 | P.PN ---
Progress Note - Text Progress Note Date: 08/08/19 Carotid duplex shows GIANNI 50-69% stenosis. Cardiology has seen the patient and now has her on aspirin 81mg/day and Eliquis 5mg po bid. She has been started on pravastatin 80mg po qhs for her LDL 216. Her GIANNI stenosis should be followed up by neurology as outpatient. I do not have any other immediate inpatient neuro recs at this time. Neurology will be available again on 08/11/19. Please call with new ?.
[2019-08-08 14:42] LABS: Calcium 9.2 mg/dL (8.4-10.2); Potassium 3.8 mmol/L (3.5-5.1)
[2019-08-08] MEDS: IPRATROPIUM-ALBUTEROL 3 ML NEB INHALATION SCH ×2 (15:21→21:01)
[2019-08-08 16:52] LABS: Glucose,Whole Blood 181 mg/dL (75-99)
[2019-08-08] MEDS: ACETAMINOPHEN TAB 325 MG TAB PO PRN ×2 (17:11→23:37)
--- NOTE | 2019-08-08 19:57 | CT ---
EXAMINATION TYPE: CT angio head neck DATE OF EXAM: 08/08/2019 HISTORY: Headache, dizziness and abnormal carotid doppler. COMPARISON: None CT DLP: 478.6 mGycm. Automated Exposure Control for Dose Reduction was Utilized. TECHNIQUE: CTA scan of the neck is performed with IV Contrast, patient injected with 65ml mL of Isov ue 370, axial images are obtained, coronal and sagittal reformatted images are reviewed. Three-D jud nstructed images are created on an independent workstation and reviewed. FINDINGS: There is normal branching pattern of the great vessels on the aortic arch. There is some atheromatous change in the aortic arch. There is arterial flow in both subclavian arteries. There is arterial maribel w in both vertebral arteries. There is arterial flow in the common internal and external carotid garrett brigid bilaterally. There is mild plaque at the carotid artery bifurcations. There is estimated 20% anibal nosis origin of the left internal carotid artery. There is estimated more than 50% stenosis origin of the right internal carotid artery. There is no evidence of carotid or vertebral artery aneurysm or d issection. There is arterial flow in the vertebrobasilar artery system. There is arterial flow in the anterior m iddle and posterior cerebral arteries. There is no evidence of intracranial arterial stenosis. There is no evidence of intracranial aneurysm or neovascularity. There is no mass effect. There is normal c ontrast opacification of the venous sinuses. There is patency of right posterior communicating artery . IMPRESSION: There is approximate 20% stenosis left internal carotid artery proximally. There is more than 50% anibal nosis of the origin right internal carotid artery. No intracranial angiographic abnormality seen.
[2019-08-08 20:21] LABS: Glucose,Whole Blood 216 mg/dL (75-99)
[2019-08-08] MEDS ORDERED: CYCLOBENZAPRINE 10 MG TAB PO SCH (21:00)
[2019-08-08] MEDS ORDERED: PRAVASTATIN SODIUM 80 MG TAB PO SCH (21:00)
[2019-08-08] MEDS ORDERED: MIRTAZAPINE 15 MG TAB PO SCH (21:00)
[2019-08-08 22:41] LABS: Hemoglobin A1C 5.4 % (4.0-6.0)
[2019-08-09] MEDS: ACETAMINOPHEN TAB 325 MG TAB PO PRN (05:05)
[2019-08-09 06:20] LABS: Glucose,Whole Blood 174 mg/dL (75-99)
[2019-08-09] MEDS: methylPREDNISolone SOD SUCCI 125 MG/2 ML VIAL IV SCH ×2 (06:24→12:20)
[2019-08-09] MEDS: INSULIN ASPART (NovoLOG) 100 UNIT/ML VIAL SQ SCH ×2 (06:24→12:23)
[2019-08-09] MEDS: APIXABAN 5 MG TAB PO SCH (08:18)
[2019-08-09] MEDS: MECLIZINE 25 MG TAB PO PRN (08:18)
[2019-08-09 08:27] VITALS: BP 187/89; PULSE 90; RESP 18; TEMP 98
[2019-08-09] MEDS: IPRATROPIUM-ALBUTEROL 3 ML NEB INHALATION SCH ×3 (08:51→15:43)
[2019-08-09] MEDS ORDERED: ASPIRIN 81 MG PO SCH (09:00)
[2019-08-09] MEDS ORDERED: amLODIPine 5 MG TAB PO SCH (10:30)
[2019-08-09] MEDS ORDERED: MECLIZINE 25 MG TAB PO PRN (11:41)
[2019-08-09] MEDS ORDERED: BUTALB/APAP/CAFF 50-325-40MG TAB PO PRN (11:57)
[2019-08-09 12:21] LABS: Glucose,Whole Blood 184 mg/dL (75-99)
--- NOTE | 2019-08-09 13:03 | P.DS ---
Providers Date of admission: 08/07/19 22:22 Attending physician: Landon Horne Consults: 08/07/19 20:42 Consult Physician Routine Consulting Provider: Rafael Chen Consult Reason/Comments: chest pain Do you want consulting provider notified?: Yes, Notify in am Consult Physician Routine Consulting Provider: Alyssa Allen Consult Reason/Comments: dizziness x 1 week, previous CVA, cardiac patient Do you want consulting provider notified?: Yes, Notify in am Primary care physician: [facility] Course: his is a 68-year-old female patient of Dr. Brito with past medical history of atrial fibrillation, CVA, dementia, fibromyalgia, osteoarthritis, hypertension, hyperlipidemia, hiatal hernia, osteoporosis, neuropathy, headaches, glaucoma, COPD and chronic smoker. Her last hospitalization was in August 2017 which time she was treated for paroxysmal atrial fibrillation placed on Cardizem and eliquis. Patient states she followed up and was told she could stop eliquis. Patient states she follows with Dr. Clifton would but still would has been out of practice in the area for greater than 1 year. Patient gives history of being sick last month with a fever or cough and went to urgent care and was given 2 antibiotics, a steroid and another medications she does not recall the name or what it was for. She improved until about a week ago she started feeling dizzy. Yesterday she had onset of chest pressure. She states the chest pressure occurs at any time. She has a cough with phlegm production that is mostly clear. She has followed in the past with Dr. Milligan for a stroke with facial droop on the right side that resolved and also dementia. She states the main reason for her coming in the hospital was for dizziness. She states it happens anytime she moves or yawns and the room is spinning. She states both arms are weak and this has been on and off for 1 year. Yesterday her hands were numb. She denies any change in her legs. She states she does have some chronic neck pain. She complains of headache that she has all the time. Headache starts in the occipital area and travels diagonally across to the opposite eye. She states she also has TMJ. She does not sleep well. She also complains of wheezing. Patient has a nebulizer at home which she has been using. She does not have oxygen or CPAP. Patient is not currently on a statin and she states that her doctor took her off all of her medications. She has tried Lipitor and unable to tolerate in the past. We did send through a prescription for Crestor which is not covered by her insurance but all other statins are covered. Patient presented to [facility] emergency center for evaluation. She was found to be afebrile, blood pressure 166/85, heart rate 96, pulse ox 96% on room air. CBC was unremarkable, electrolytes within normal limits, BUN 21 creatinine 0.97, liver function test within normal limits. Troponins negative on 3 draws. Triglycerides 166, cholesterol 291, LDL 216, HDL 42. TSH 2.750. CAT scan angiogram of the chest was negative for pulmonary embolism. Minimal bronchial adenopathy probably due to inflammatory disease. Pulmonary emphysema. Minimal scarring at the right lung apex. CAT scan of the brain reveals no acute intracranial process Carotid duplex revealed hemodynamically significant stenosis of the proximal internal carotid artery on the right corresponding to 50-69%. Possible carotid stenosis on the left. Consider carotid CTA which will be ordered Echocardiogram reveals EF 55-60% with mild concentric left hypertrophy, trace mitral regurgitation, trace tricuspid regurgitation, RVSP unable to calculate. Patient was admitted to the cardiac stepdown unit and cardiology consult, neurology consult requested. Patient has been seen by neurology for dizziness. B12 level is pending. No plan for MRI of the brain. 08/09 patient examined bedside complain of significant headache neck pain, pain on movement of the neck and ear ache. No nystagmus. Noted on examination. Patient's symptoms appear to be related to cervicalgia from nerve compression. Will benefit from pain clinic and possible steroid injection in the cervical joint. Patient will be discharged on Medrol Dosepak along with Fioricet to help with headache and will follow-up with Dr. Steiner as outpatient Discharge diagnoses #1 dizziness secondary to cervicalgia #2 chest pain secondary to costochondritis #3 history of stroke with no lateralization symptoms stroke ruled out #4 COPD #5 hypertension #6 hyperlipidemia #7 history of atrial fibrillation paroxysmal CC a copy of discharge to Dr. Steiner Home with home physical therapy Patient Condition at Discharge: Stable Plan - Discharge Summary Discharge Rx Participant: No New Discharge Prescriptions: New Meclizine [Antivert] 25 mg PO QID PRN #30 tab PRN Reason: Vertigo Apixaban [Eliquis] 5 mg PO BID #60 tab Butalb/APAP/Caff 50-325-40Mg [Fioricet 50-325-40] 1 each PO Q4HR PRN #18 tab PRN Reason: Headache methylPREDNISolone Dose Pack [Medrol Dose Pack] 4 mg PO DIRECTED #21 package amLODIPine [Norvasc] 5 mg PO DAILY #30 tab Pravastatin Sodium [Pravachol] 80 mg PO HS #30 tab Continue Albuterol Inhaler [Ventolin Hfa Inhaler] 2 puff INHALATION RT-Q6H PRN PRN Reason: Shortness Of Breath Loperamide HCl [Imodium A-D] 2 mg PO QID PRN PRN Reason: Diarrhea Albuterol Nebulized [Ventolin Nebulized] 2.5 mg INHALATION RT-TID PRN PRN Reason: Wheezing Mirtazapine [Remeron] 15 mg PO HS diphenhydrAMINE HCL [Benadryl] 25 mg PO Q4H Naproxen Sodium [Aleve] 440 mg PO Q12HR PRN PRN Reason: Pain Discharge Medication List Albuterol Inhaler [Ventolin Hfa Inhaler] 2 puff INHALATION RT-Q6H PRN 01/09/15 [History] Albuterol Nebulized [Ventolin Nebulized] 2.5 mg INHALATION RT-TID PRN 09/06/17 [History] Loperamide HCl [Imodium A-D] 2 mg PO QID PRN 09/06/17 [History] Mirtazapine [Remeron] 15 mg PO HS 09/25/17 [History] Naproxen Sodium [Aleve] 440 mg PO Q12HR PRN 08/07/19 [History] diphenhydrAMINE HCL [Benadryl] 25 mg PO Q4H 08/07/19 [History] Apixaban [Eliquis] 5 mg PO BID #60 tab 08/09/19 [Rx] Butalb/APAP/Caff 50-325-40Mg [Fioricet 50-325-40] 1 each PO Q4HR PRN #18 tab 08/09/19 [Rx] Meclizine [Antivert] 25 mg PO QID PRN #30 tab 08/09/19 [Rx] Pravastatin Sodium [Pravachol] 80 mg PO HS #30 tab 08/09/19 [Rx] amLODIPine [Norvasc] 5 mg PO DAILY #30 tab 08/09/19 [Rx] methylPREDNISolone Dose Pack [Medrol Dose Pack] 4 mg PO DIRECTED #21 package 08/09/19 [Rx] Follow up Appointment(s)/Referral(s): Katie Steiner MD [STAFF PHYSICIAN] - 1 Week (Please call office Sunday for appointment) Clem Fung DO [Doctor of Osteopathic Medicine] - 2 Weeks (please call office Sunday for appointment) Georges Cruz MD [STAFF PHYSICIAN] - 1 Week Patient Instructions/Handouts: Chest Pain (ED), Vertigo (DC) Discharge Disposition: HOME WITH HOME HEALTH SERVICES Care Plan Goals (MU): HOme PT
== END 2019-08-09 16:07 | disposition home or self-care (01) | DRG 552 ==
LOC: EC 16:38 → 1SOBS 22:22 → 3SCARD 23:04 → OBSVTOIN 08-09 11:47
PROVIDERS: ADMIT Internal Medicine Geriatric Medicine; ATTEND Internal Medicine Geriatric Medicine
DX: M54.2 Cervicalgia (principal); M94.0 Chondrocostal junction syndrome [Tietze]; G62.9 Polyneuropathy, unspecified; I65.21 Occlusion and stenosis of right carotid artery; J43.9 Emphysema, unspecified; I48.0 Paroxysmal atrial fibrillation; F03.90 Unspecified dementia, unspecified severity, without behavioral disturbance, psychotic disturbance, mood disturbance, and anxiety; E78.5 Hyperlipidemia, unspecified; G43.909 Migraine, unspecified, not intractable, without status migrainosus; M54.81 Occipital neuralgia; G47.00 Insomnia, unspecified; R40.2362 Coma scale, best motor response, obeys commands, at arrival to emergency department; R40.2142 Coma scale, eyes open, spontaneous, at arrival to emergency department; R40.2252 Coma scale, best verbal response, oriented, at arrival to emergency department; I10 Essential (primary) hypertension; G89.29 Other chronic pain; M54.9 Dorsalgia, unspecified; H93.13 Tinnitus, bilateral; M79.7 Fibromyalgia; M26.609 Unspecified temporomandibular joint disorder, unspecified side; I25.10 Atherosclerotic heart disease of native coronary artery without angina pectoris; M19.90 Unspecified osteoarthritis, unspecified site; M81.0 Age-related osteoporosis without current pathological fracture; H40.9 Unspecified glaucoma; K44.9 Diaphragmatic hernia without obstruction or gangrene; K21.9 Gastro-esophageal reflux disease without esophagitis; F17.210 Nicotine dependence, cigarettes, uncomplicated; F10.11 Alcohol abuse, in remission; Z71.6 Tobacco abuse counseling; Z79.899 Other long term (current) drug therapy; Z86.73 Personal history of transient ischemic attack (TIA), and cerebral infarction without residual deficits; Z90.49 Acquired absence of other specified parts of digestive tract; Z90.710 Acquired absence of both cervix and uterus; Z98.51 Tubal ligation status; Z87.440 Personal history of urinary (tract) infections; Z87.81 Personal history of (healed) traumatic fracture; Z89.021 Acquired absence of right finger(s); Z86.59 Personal history of other mental and behavioral disorders; Z98.890 Other specified postprocedural states; Z88.0 Allergy status to penicillin; Z88.2 Allergy status to sulfonamides; Z88.8 Allergy status to other drugs, medicaments and biological substances; Z88.1 Allergy status to other antibiotic agents; Z91.040 Latex allergy status; Z82.3 Family history of stroke; Z82.49 Family history of ischemic heart disease and other diseases of the circulatory system
CPT/HCPCS: 36415; 70450; 70496; 70498; 71046; 71275; 80048; 80053; 80061; 82607; 83036; 83735; 84443; 84484; 85025; 85379; 85610; 85652; 85730; 93306; 93880; 94640; 96361; 96374; 99285

== ENCOUNTER → 2019-11-06 | Outpatient (CLI) | payer MEDICARE, OTHER ==
--- NOTE | 2019-11-06 16:10 | MR ---
EXAMINATION TYPE: MR cervical spine wo con DATE OF EXAM: 11/06/2019 COMPARISON: None HISTORY: 68-year-old female with Neck pain, Headache, bilateral upper extremity numbness, vertigo TECHNIQUE: Multiplanar, multisequence images of the cervical spine were acquired. FINDINGS: No craniocervical junction abnormality, predental space widening, or prevertebral soft tissue swellin g. Preserved alignment of the cervical spine. There is mild multilevel degenerative disc disease with va riable disc and minimal posterior disc bulging. Scattered mild ligamentum flavum thickening with facet and uncovertebral joint arthropathy. There is a component of mild congenital spinal canal stenosis mid cervical spine with AP canal dimens ion of 1.0 cm. There is no suspicious bone marrow placement. At C2-C3, mild congenital canal narrowing without significant canal or foraminal stenosis. At C3-C4, congenital canal narrowing with a mild facet arthropathy. Changes result in no significant canal or foraminal stenosis. At C4-C5, minimal posterior disc bulge and mild ligamentum flavum thickening. Mild overall spinal can al stenosis. Hypertrophic facet and uncovertebral joint arthropathy, left greater than right. Moderat e left and mild right neuroforaminal stenosis. At C5-C6, mild posterior disc bulge with uncovertebral joint and facet arthropathy and mild ligamentu m flavum thickening. Moderate overall narrowing of the spinal canal with abutment and slight flatteni ng of both the dorsal and ventral cord. Moderate right and mild left neuroforaminal stenosis. At C6-C7, mild congenital canal narrowing. Facet arthropathy with mild right neuroforaminal stenosis. No significant spinal canal stenosis. At C7-T1, facet arthropathy with mild to moderate right neuroforaminal stenosis. No significant spina l canal stenosis. Extensive patient motion casting artifacts over the cervical spinal cord. No definite myelopathic cor d signal change. IMPRESSION: 1. Scattered facet and uncovertebral joint arthropathy and mild degenerative disc disease superimpose d on congenital spinal canal narrowing. 2. Overall moderate narrowing of the spinal canal at C5-C6 with minimal posterior disc bulge and thic kened ligamentum flavum abutting both the dorsal and ventral cord. No ebttye cord compression. Allowin g for extensive motion artifact, no discrete myelopathic cord signal change. 3. Additional levels of mild spinal canal narrowing. 4. Variable mild and moderate neuroforaminal stenoses as outlined above.
== END | disposition home or self-care (01) ==
LOC: RADMRIMAIN 13:18 → EEVIPCON 13:45
PROVIDERS: ATTEND Internal Medicine
DX: M48.02 Spinal stenosis, cervical region (principal); M50.121 Cervical disc disorder at C4-C5 level with radiculopathy; M50.10 Cervical disc disorder with radiculopathy, unspecified cervical region; M46.96 Unspecified inflammatory spondylopathy, lumbar region
CPT/HCPCS: 72141

== ENCOUNTER 2019-11-18 14:10 | Inpatient (IN) | payer MEDICARE, OTHER ==
[2019-11-18] MEDS ORDERED: ALBUTEROL NEBULIZED 2.5 MG/3 ML INHALATION STA (14:32)
[2019-11-18] MEDS ORDERED: IPRATROPIUM-ALBUTEROL 3 ML NEB INHALATION STA (14:32)
[2019-11-18] MEDS ORDERED: SODIUM CHLORIDE 0.9% 500 ML 500 ML IV ONE ×2 (14:32→15:40)
[2019-11-18] MEDS ORDERED: DEXAMETHASONE SOD PHOSPHATE 10 MG/ML 1 ML VIAL IV STA (14:32)
[2019-11-18] MEDS ORDERED: HYDROmorphone 1 MG/ML 1 ML SYRINGE IVP STA (14:32)
[2019-11-18 15:00] LABS: Basophils % (A) 1 %; Eosinophils % (A) 0 %; HCT 41.8 % (34.0-46.0); HGB 14.4 gm/dL (11.4-16.0); Lymphocytes # (A) 1.5 k/uL (1.0-4.8); Lymphocytes % (A) 18 %; MCH 30.2 pg (25.0-35.0); MCHC 34.5 g/dL (31.0-37.0); MCV 87.5 fL (80.0-100.0); Mean Platelet Volume 8.3; Monocytes # (A) 0.4 k/uL (0-1.0); Monocytes % (A) 5 %; Neutrophils # (A) 6.3 k/uL (1.3-7.7); Neutrophils % (A) 75 %; Platelet Count 264 k/uL (150-450); RBC 4.78 m/uL (3.80-5.40); WBC 8.5 k/uL (3.8-10.6)
[2019-11-18 15:11] LABS: Albumin 4.5 g/dL (3.5-5.0); Calcium 10.3 mg/dL (8.4-10.2); Magnesium 1.9 mg/dL (1.6-2.3); Potassium 4.2 mmol/L (3.5-5.1); Total Bilirubin 0.7 mg/dL (0.2-1.3); Total Protein 7.3 g/dL (6.3-8.2)
[2019-11-18 15:13] LABS: D-Dimer 0.45 mg/L FEU (<0.60); INR 0.9 (<1.2); Partial Thromboplastin Time 23.5 sec (22.0-30.0); Prothrombin Time 9.9 sec (9.0-12.0)
--- NOTE | 2019-11-18 15:20 | XR ---
EXAMINATION TYPE: XR chest 2V DATE OF EXAM: 11/18/2019 COMPARISON: 08/07/2019 INDICATION: Chest pain TECHNIQUE: Frontal and lateral views of the chest are obtained. FINDINGS: The heart size is normal. The pulmonary vasculature is normal. The lungs are clear. IMPRESSION: 1. No acute pulmonary process.
[2019-11-18] MEDS ORDERED: ASPIRIN 325 MG TAB PO STA (15:44)
[2019-11-18] MEDS ORDERED: IPRATROPIUM-ALBUTEROL 3 ML NEB INHALATION PRN (15:51)
--- NOTE | 2019-11-18 15:51 | ED ---
General Adult HPI - General Chief complaint: Chest Pain Stated complaint: Lung infection, R side chest pain/back pain Time Seen by Provider: 11/18/19 14:27 Source: patient, RN notes reviewed, old records reviewed Mode of arrival: ambulatory Limitations: no limitations - History of Present Illness Initial comments: 68-year-old female history of COPD presenting for evaluation of cough and dyspnea and right-sided chest pain. Patient states she was at the primary care office today for evaluation of URI symptoms, cough, COPD. While in the waiting room she developed right-sided chest pain which was dull and nonradiating. This was associated with cough. She was sent in by primary care physician for evaluation. She states she's been sick for several weeks with dyspnea, productive cough and URI symptoms. No fever or chills. - Related Data Home Medications Medication Instructions Recorded Confirmed Albuterol Inhaler [Ventolin Hfa 2 puff INHALATION RT-Q6H PRN 01/09/15 08/07/19 Inhaler] Albuterol Nebulized [Ventolin 2.5 mg INHALATION RT-TID PRN 09/06/17 08/07/19 Nebulized] Loperamide HCl [Imodium A-D] 2 mg PO QID PRN 09/06/17 08/07/19 Mirtazapine [Remeron] 15 mg PO HS 09/25/17 08/07/19 Naproxen Sodium [Aleve] 440 mg PO Q12HR PRN 08/07/19 08/07/19 diphenhydrAMINE HCL [Benadryl] 25 mg PO Q4H 08/07/19 08/07/19 Previous Rx's Medication Instructions Recorded Apixaban [Eliquis] 5 mg PO BID #60 tab 08/09/19 Butalb/APAP/Caff 50-325-40Mg 1 each PO Q4HR PRN #18 tab 08/09/19 [Fioricet 50-325-40] Meclizine [Antivert] 25 mg PO QID PRN #30 tab 08/09/19 Pravastatin Sodium [Pravachol] 80 mg PO HS #30 tab 08/09/19 amLODIPine [Norvasc] 5 mg PO DAILY #30 tab 08/09/19 methylPREDNISolone Dose Pack 4 mg PO DIRECTED #21 package 08/09/19 [Medrol Dose Pack] Allergies Allergy/AdvReac Type Severity Reaction Status Date / Time atorvastatin [From Lipitor] Allergy Unknown Verified 11/18/19 14:20 cephalexin monohydrate Allergy Rash/Hives Verified 11/18/19 14:20 [From Keflex] ciprofloxacin [From Cipro] Allergy Swelling Verified 11/18/19 14:20 latex Allergy Rash/Hives Verified 11/18/19 14:20 oxytetracycline Allergy Rash/Hives Verified 11/18/19 14:20 [From Terramycin] Penicillins Allergy Rash/Hives Verified 11/18/19 14:20 quetiapine fumarate Allergy Rash/Hives Verified 11/18/19 14:20 [From Seroquel] Sulfa (Sulfonamide Allergy Rash/Hives Verified 11/18/19 14:20 Antibiotics) Review of Systems ROS Statement: Those systems with pertinent positive or pertinent negative responses have been documented in the HPI. ROS Other: All systems not noted in ROS Statement are negative. 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 Past Anesthesia/Blood Transfusion Reactions: Previous Problems w/ Anesthesia Additional Past Anesthesia/Blood Transfusion Reaction / Comment(s): difficulty waking in past. clausterphobia Past Psychological History: Anxiety, Depression Smoking Status: Current every day smoker Past Alcohol Use History: Occasional, Rare Past Drug Use History: None Reported - Past Family History Mother Additional Family Medical History / Comment(s): Mother at age 73 from a brain stem stroke. Brother(s) Additional Family Medical History / Comment(s): Patient has 2 full brothers with no major medical problems. Patient does not have any sisters. Patient has 3 sons with no major medical problems. Father Family Medical History: Congestive Heart Failure (CHF), Myocardial Infarction ([place]) Additional Family Medical History / Comment(s): Father at age 76 from a massive heart attack. General Exam Limitations: no limitations General appearance: alert, in no apparent distress Head exam: Present: atraumatic, normocephalic Eye exam: Present: normal appearance, PERRL ENT exam: Present: normal exam Neck exam: Present: normal inspection. Absent: tenderness Respiratory exam: Present: respiratory distress, wheezes, rhonchi, decreased breath sounds Cardiovascular Exam: Present: normal rhythm, tachycardia GI/Abdominal exam: Present: soft. Absent: distended, tenderness Extremities exam: Present: normal inspection, normal capillary refill. Absent: pedal edema, calf tenderness Neurological exam: Present: alert, oriented X3, CN II-XII intact. Absent: motor sensory deficit Psychiatric exam: Present: normal affect, normal mood Skin exam: Present: warm, dry, intact. Absent: cyanosis, diaphoretic Course Vital Signs 11/18/19 11/18/19 11/18/19 14:17 14:50 14:57 Temperature 98.1 F Pulse Rate 120 H 120 H 118 H Respiratory 20 Rate Blood Pressure 176/91 O2 Sat by Pulse 97 Oximetry EKG Findings - EKG Comments: EKG Findings:: EKG: Sinus tach with sinus arrhythmia rate of 106, CA interval 172, QRS duration 86, QTC 446, ST segment depression in the lateral precordial leads no ST segment elevation. Medical Decision Making - Medical Decision Making 68-year-old female with COPD, dyspnea, right-sided chest pain. Patient has decreased air entry bilaterally with end expiratory wheeze. Moderate respiratory distress. Chest x-ray showing no acute process, no pneumothorax, no definitive focal pneumonia. She has a normal CBC, normal CMP, negative d-dimer, negative troponin. Patient will be admitted for further treatment of COPD exacerbation. Case discussed with primary care physician Dr. Vo. As well as the admitting physician Dr. Walter - Lab Data Result diagrams: 11/18/19 14:44 11/18/19 14:44 Lab Results 11/18/19 11/18/19 11/18/19 Range/Units 14:44 14:44 14:44 WBC 8.5 (3.8-10.6) k/uL RBC 4.78 (3.80-5.40) m/uL Hgb 14.4 (11.4-16.0) gm/dL Hct 41.8 (34.0-46.0) % MCV 87.5 (80.0-100.0) fL MCH 30.2 (25.0-35.0) pg MCHC 34.5 (31.0-37.0) g/dL RDW 13.0 (11.5-15.5) % Plt Count 264 (150-450) k/uL Neutrophils % 75 % Lymphocytes % 18 % Monocytes % 5 % Eosinophils % 0 % Basophils % 1 % Neutrophils # 6.3 (1.3-7.7) k/uL Lymphocytes # 1.5 (1.0-4.8) k/uL Monocytes # 0.4 (0-1.0) k/uL Eosinophils # 0.0 (0-0.7) k/uL Basophils # 0.0 (0-0.2) k/uL PT 9.9 (9.0-12.0) sec INR 0.9 (<1.2) APTT 23.5 (22.0-30.0) sec D-Dimer 0.45 (<0.60) mg/L FEU Sodium 142 (137-145) mmol/L Potassium 4.2 (3.5-5.1) mmol/L Chloride 104 (98-107) mmol/L Carbon Dioxide 30 (22-30) mmol/L Anion Gap 8 mmol/L BUN 23 H (7-17) mg/dL Creatinine 0.94 (0.52-1.04) mg/dL Est GFR (CKD-EPI)AfAm 72 (>60 ml/min/1.73 sqM) Est GFR (CKD-EPI)NonAf 63 (>60 ml/min/1.73 sqM) Glucose 109 H (74-99) mg/dL Calcium 10.3 H (8.4-10.2) mg/dL Magnesium 1.9 (1.6-2.3) mg/dL Total Bilirubin 0.7 (0.2-1.3) mg/dL AST 21 (14-36) U/L ALT 19 (4-34) U/L Alkaline Phosphatase 125 (38-126) U/L Troponin I (0.000-0.034) ng/mL NT-Pro-B Natriuret Pep pg/mL Total Protein 7.3 (6.3-8.2) g/dL Albumin 4.5 (3.5-5.0) g/dL Lipase 78 (23-300) U/L 11/18/19 11/18/19 Range/Units 14:44 14:44 WBC (3.8-10.6) k/uL RBC (3.80-5.40) m/uL Hgb (11.4-16.0) gm/dL Hct (34.0-46.0) % MCV (80.0-100.0) fL MCH (25.0-35.0) pg MCHC (31.0-37.0) g/dL RDW (11.5-15.5) % Plt Count (150-450) k/uL Neutrophils % % Lymphocytes % % Monocytes % % Eosinophils % % Basophils % % Neutrophils # (1.3-7.7) k/uL Lymphocytes # (1.0-4.8) k/uL Monocytes # (0-1.0) k/uL Eosinophils # (0-0.7) k/uL Basophils # (0-0.2) k/uL PT (9.0-12.0) sec INR (<1.2) APTT (22.0-30.0) sec D-Dimer (<0.60) mg/L FEU Sodium (137-145) mmol/L Potassium (3.5-5.1) mmol/L Chloride (98-107) mmol/L Carbon Dioxide (22-30) mmol/L Anion Gap mmol/L BUN (7-17) mg/dL Creatinine (0.52-1.04) mg/dL Est GFR (CKD-EPI)AfAm (>60 ml/min/1.73 sqM) Est GFR (CKD-EPI)NonAf (>60 ml/min/1.73 sqM) Glucose (74-99) mg/dL Calcium (8.4-10.2) mg/dL Magnesium (1.6-2.3) mg/dL Total Bilirubin (0.2-1.3) mg/dL AST (14-36) U/L ALT (4-34) U/L Alkaline Phosphatase (38-126) U/L Troponin I <0.012 (0.000-0.034) ng/mL NT-Pro-B Natriuret Pep 363 pg/mL Total Protein (6.3-8.2) g/dL Albumin (3.5-5.0) g/dL Lipase (23-300) U/L Disposition Clinical Impression: COPD (chronic obstructive pulmonary disease), Chest pain Disposition: ADMITTED IP TO THIS [facility] Condition: Stable Is patient prescribed a controlled substance at d/c from ED?: No Referrals: Hi Vo MD [Primary Care Provider] - 1-2 days Decision to Admit Reason: Admit from EC Decision Date: 11/18/19 Decision Time: 15:50
[2019-11-18] MEDS: IPRATROPIUM-ALBUTEROL 3 ML NEB INHALATION SCH ×2 (17:01→21:38)
[2019-11-18] MEDS: methylPREDNISolone SOD SUCCI 125 MG/2 ML VIAL IV SCH (18:39)
[2019-11-18] MEDS: SODIUM CHLORIDE 0.9% 1,000 ML IV SCH (18:40)
[2019-11-18] MEDS ORDERED: NITROGLYCERIN OINT 1 INCH/GM PACKET TOPICAL STA (21:46)
[2019-11-18] MEDS: MORPHINE SULFATE 2 MG/ML SYRINGE IVP PRN (22:42)
[2019-11-19] MEDS: methylPREDNISolone SOD SUCCI 125 MG/2 ML VIAL IV SCH ×5 (01:44→23:38)
[2019-11-19] MEDS: MORPHINE SULFATE 2 MG/ML SYRINGE IVP PRN ×2 (04:04→11:07)
[2019-11-19] MEDS: IPRATROPIUM-ALBUTEROL 3 ML NEB INHALATION SCH ×4 (07:31→19:43)
[2019-11-19] MEDS: SODIUM CHLORIDE 0.9% 1,000 ML IV SCH (07:56)
[2019-11-19] MEDS: amLODIPine 5 MG TAB PO SCH (11:07)
[2019-11-19 11:31] LABS: Appearance,Urine Clear (Clear); Bilirubin,Urine Negative (Negative); Blood,Urine Trace (Negative); Color,Urine Yellow; Glucose,Urine (UA) Negative (Negative); Hyaline Casts,Urine 7 /lpf (0-2); Ketones,Urine Negative (Negative); Leukocyte Esterase,Urine Negative (Negative); Mucus,Urine Rare /hpf; Nitrite,Urine Negative (Negative); PH, Urine 6.5 (5.0-8.0); Protein,Urine Negative (Negative); RBC,Urine 6 /hpf (0-5); Specific Gravity,Urine 1.018 (1.001-1.035); Squamous Epithelial Cell,Urine 1 /hpf (0-4); Urobilinogen,Urine <2.0 mg/dL (<2.0); WBC,Urine 1 /hpf (0-5)
[2019-11-19] MEDS: METOPROLOL TARTRATE 25 MG TAB PO SCH ×2 (12:41→20:14)
[2019-11-19] MEDS: APIXABAN 5 MG TAB PO SCH ×2 (12:41→20:14)
[2019-11-19] MEDS ORDERED: AZITHROMYCIN 500 MG in SODIUM CHLORIDE 0.9% 250 ML IVPB ONE (13:00)
--- NOTE | 2019-11-19 14:11 | P.CRDCN ---
History of Present Illness History of present illness: HISTORY OF PRESENTING ILLNESS This is a pleasant 68-year-old female past medical history significant for paroxysmal atrial fibrillation on long-term anticoagulation, hypertension, dyslipidemia, COPD and chronic nicotine dependence. She has followed in the office with Dr. Christianson however has not been for a follow-up since 2017. We have been asked to see in consultation for chest pain. She states for the previous day she has been experiencing a discomfort in the right upper abdomen that radiates to the right flank and right anterior chest wall. She has experienced these symptoms previously in the past however no cause was determined. Her pain is reproducible on palpitation and not associated with activity or exertion. DIAGNOSTICS EKG reveals sinus tachycardia heart rate of [address] abnormalities inferiorly and episodes of atrial tachycardia. Chest xray negative for any acute cardiopulmonary process. Laboratory reviewed, CBC unremarkable, d-dimer 0.45, sodium 142, potassium 4.2, creatinine 0.94, cardiac enzymes negative negative x3 and proBNP 363. Current cardiac medications include eliquis 5 mg BID, pravastatin 80 mg daily and amlodipine 5 mg daily. Most recent echocardiogram obtained July 2019 reveals preserved LV systolic function with ejection fraction 55-60%. REVIEW OF SYSTEMS At the time of my exam: CONSTITUTIONAL: Denies fever or chills. CARDIOVASCULAR: Denies chest pain, shortness of breath, orthopnea, PND or palpitations. RESPIRATORY: Denies cough. GASTROINTESTINAL: Denies abdominal pain, diarrhea, constipation, nausea or vomiting. MUSCULOSKELETAL: Denies myalgias. NEUROLOGIC: Denies numbness, tingling or weakness. ENDOCRINE: Denies fatigue, weight change, polydipsia or polyurina. GENITOURINARY: Denies burning, hematuria or urgency with micturation. HEMATOLOGIC: Denies history of anemia or bleeding. PHYSICAL EXAMINATION Blood pressure 116/74 heart rate 80 afebrile and maintaining oxygen saturation on nasal cannula CONSTITUTIONAL: No apparent distress. HEENT: Head is normocephalic. Pupils are equal, round. Sclerae anicteric. Mucous membranes of the mouth are moist. No JVD. No carotid bruit. CHEST EXAMINATION: Lungs are clear to auscultation. No chest wall tenderness is noted on palpation or with deep breathing. HEART EXAMINATION: Regular rate and rhythm. S1, S2 heard. No murmurs, gallops or rub. ABDOMEN: Soft, nontender. Positive bowel sounds. EXTREMITIES: 2+ peripheral pulses, no lower extremity edema and no calf tenderness. NEUROLOGIC EXAMINATION: Patient is awake, alert and oriented x3. ASSESSMENT Chest pain associated with right flank pain, atypical for angina and reproducible Paroxysmal atrial fibrillation on longterm anti-coagulation Hypertension Dyslipidemia COPD Chronic nicotine dependence PLAN Chest pain is atypical for angina and pleuritic in nature. PE has been ruled out. Consider GI evaluation of flank and abdominal pain. Initiate lopressor 25 mg BID. Follow up with Dr. Christianson upon discharge. Thank you kindly for this consultation. Nurse Practitioner note has been reviewed, I agree with a documented findings and plan of care. Patient was seen and examined. 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 Past Anesthesia/Blood Transfusion Reactions: Previous Problems w/ Anesthesia Additional Past Anesthesia/Blood Transfusion Reaction / Comment(s): difficulty waking in past. clausterphobia Past Psychological History: Anxiety, Depression Smoking Status: Current every day smoker Past Alcohol Use History: Occasional, Rare Past Drug Use History: None Reported - Past Family History Mother Additional Family Medical History / Comment(s): Mother at age 73 from a brain stem stroke. Brother(s) Additional Family Medical History / Comment(s): Patient has 2 full brothers with no major medical problems. Patient does not have any sisters. Patient has 3 sons with no major medical problems. Father Family Medical History: Congestive Heart Failure (CHF), Myocardial Infarction ([place]) Additional Family Medical History / Comment(s): Father at age 76 from a massive heart attack. Medications and Allergies Home Medications Medication Instructions Recorded Confirmed Type Apixaban [Eliquis] 5 mg PO BID #60 tab 08/09/19 11/18/19 Rx Pravastatin Sodium [Pravachol] 80 mg PO HS #30 tab 08/09/19 11/18/19 Rx amLODIPine [Norvasc] 5 mg PO DAILY #30 tab 08/09/19 11/18/19 Rx Desvenlafaxine Succinate [Pristiq 50 mg PO DAILY 11/18/19 11/18/19 History ER] QUEtiapine [SEROquel] 25 - 50 mg PO HS 11/18/19 11/18/19 History Umeclidinium [employer] [Incruse 1 puff INHALATION RT-DAILY 11/18/19 11/18/19 History Ellipta] Allergies Allergy/AdvReac Type Severity Reaction Status Date / Time atorvastatin [From Lipitor] Allergy Unknown Verified 11/18/19 16:37 cephalexin monohydrate Allergy Rash/Hives Verified 11/18/19 16:37 [From Keflex] ciprofloxacin [From Cipro] Allergy Swelling Verified 11/18/19 16:37 latex Allergy Rash/Hives Verified 11/18/19 16:37 oxytetracycline Allergy Rash/Hives Verified 11/18/19 16:37 [From Terramycin] Penicillins Allergy Rash/Hives Verified 11/18/19 16:37 Sulfa (Sulfonamide Allergy Rash/Hives Verified 11/18/19 16:37 Antibiotics) Physical Exam Vitals: Vital Signs Temp Pulse Resp BP Pulse Ox 11/19/19 07:49 98.1 F 81 18 172/73 94 L 11/19/19 06:29 82 16 166/73 98 11/18/19 19:18 141/93 11/18/19 18:42 101 H 18 174/90 99 11/18/19 17:11 108 H 18 11/18/19 17:02 110 H 11/18/19 17:00 101 H 164/71 95 11/18/19 16:30 98 17 150/88 96 11/18/19 16:00 101 H 18 147/80 94 L 11/18/19 14:57 118 H 11/18/19 14:50 120 H 11/18/19 14:17 98.1 F 120 H 20 176/91 97 Results 11/18/19 14:44 11/18/19 14:44 Cardiac Enzymes 11/18/19 11/18/19 11/18/19 Range/Units 14:44 14:44 19:30 AST 21 (14-36) U/L Troponin I <0.012 <0.012 (0.000-0.034) ng/mL Coagulation 11/18/19 Range/Units 14:44 PT 9.9 (9.0-12.0) sec APTT 23.5 (22.0-30.0) sec CBC 11/18/19 Range/Units 14:44 WBC 8.5 (3.8-10.6) k/uL RBC 4.78 (3.80-5.40) m/uL Hgb 14.4 (11.4-16.0) gm/dL Hct 41.8 (34.0-46.0) % Plt Count 264 (150-450) k/uL Comprehensive Metabolic Panel 11/18/19 Range/Units 14:44 Sodium 142 (137-145) mmol/L Potassium 4.2 (3.5-5.1) mmol/L Chloride 104 (98-107) mmol/L Carbon Dioxide 30 (22-30) mmol/L BUN 23 H (7-17) mg/dL Creatinine 0.94 (0.52-1.04) mg/dL Glucose 109 H (74-99) mg/dL Calcium 10.3 H (8.4-10.2) mg/dL AST 21 (14-36) U/L ALT 19 (4-34) U/L Alkaline Phosphatase 125 (38-126) U/L Total Protein 7.3 (6.3-8.2) g/dL Albumin 4.5 (3.5-5.0) g/dL Current Medications Generic Name Dose Route Start Last Admin Trade Name Freq PRN Reason Stop Dose Admin Albuterol/Ipratropium 3 ml 11/18/19 15:51 Duoneb 0.5 Mg-3 Mg/3 Ml Soln INHALATION RT-Q4H PRN Shortness Of Breath Or Wheezing Albuterol/Ipratropium 3 ml 11/18/19 16:00 11/19/19 07:31 Duoneb 0.5 Mg-3 Mg/3 Ml Soln INHALATION Not Given RT-QID [facility] Amlodipine Besylate 5 mg 11/19/19 09:00 Norvasc PO DAILY [facility] Sodium Chloride 1,000 mls @ 75 mls/hr 11/18/19 16:00 11/19/19 07:56 Saline 0.9% IV Not Given .[id number] [facility] Methylprednisolone Sodium Succinate 60 mg 11/18/19 18:00 11/19/19 06:26 Solu-Medrol IV 60 mg Q6HR [facility] Administration Morphine Sulfate 2 mg 11/18/19 21:47 11/19/19 04:04 Morphine Sulfate (Inj) IVP 2 mg Q4H PRN Administration Pain/Discomfort Pravastatin Sodium 80 mg 11/19/19 21:00 Pravachol PO HS [facility] 11/18/19 14:44 11/18/19 14:44
--- NOTE | 2019-11-19 15:18 | P.HPIM ---
History of Present Illness H&P Date: 11/19/19 This is a 68-year-old female patient of Dr. Vo with past medical history of paroxysmal atrial fibrillation on eliquis, history of CVA, dementia, fibromyalgia, osteoarthritis, hypertension hypertensive cardiovascular disease, hyperlipidemia, hiatal hernia, osteoporosis, neuropathy, headaches, glaucoma, COPD and chronic smoker. Patient gives history of increasing difficulty breathing with pain in the right side of her chest that was excruciating. She complains of cough with shortness of breath. She was seen by her PCP and due to chest pain was instructed to come into the hospital. Patient is currently smoking 1 pack per day and has been smoking since age 15. Patient presented to [facility] emergency center for evaluation. She was found to be afebrile, blood pressure 147/50, heart rate 68, pulse ox 98% on 2 L nasal cannula. Chest x-ray showed no acute cardio pulmonary process. CBC unremarkable, d-dimer 0.45, sodium 142, potassium 4.2, creatinine 0.94, cardiac enzymes negative negative x3 and proBNP 363. EKG was a sinus tachycardia. Patient was started on DuoNeb treatments, IV Solu-Medrol and placed on the observation unit. Cardiology consult was requested. Patient apparently has seen Dr. Han in the past but has been a long time. Consult placed with Dr. Berg. Review of Systems Constitutional: Reports fatigue, Reports weakness, Denies chills, Denies poor appetite Eyes: denies blurred vision, denies pain Ears, nose, mouth and throat: Denies dysphagia, Denies headache, Denies nasal congestion, Denies nasal discharge, Denies sore throat, Denies vertigo Cardiovascular: Reports chest pain, Reports shortness of breath, Denies lightheadedness, Denies syncope Respiratory: Reports cough, Reports cough with sputum, Reports dyspnea, Reports respiratory infections, Denies excessive sputum, Denies hemoptysis, Denies home oxygen Gastrointestinal: Denies abdominal pain, Denies diarrhea, Denies nausea, Denies vomiting Genitourinary: Reports flank pain Musculoskeletal: Denies frequent falls, Denies gait dysfunction, Denies myalgias Integumentary: Reports wounds (Right lower leg), Denies pruritus, Denies rash Neurological: Denies change in mentation, Denies confusion, Denies numbness, Denies weakness Psychiatric: Denies anxiety, Denies depression Endocrine: Denies fatigue, Denies weight change Past Medical History Past Medical History: Atrial Fibrillation, Asthma, Coronary Artery Disease (CAD), Chest Pain / Angina, COPD, CVA/TIA, Dementia, Fibromyalgia, GERD/Reflux, Hyperlipidemia, Hypertension, Memory Impairment, Osteoarthritis (OA), Pneumonia Additional Past Medical History / Comment(s): EARLY DEMENTIA WITH SOME SHORT TERM MEMORY LOSS, NEUROPATHY BILATERAL UPPER AND LOWER EXTREMITIES, CHRONIC BACK PAIN, DJD, CVA 2006, TIA 2007, BRONCHITIS, SINUS PROBLEMS AT TIMES, 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 Past Anesthesia/Blood Transfusion Reactions: Previous Problems w/ Anesthesia Additional Past Anesthesia/Blood Transfusion Reaction / Comment(s): difficulty waking in past. clausterphobia Past Psychological History: Anxiety, Depression Smoking Status: Current every day smoker Past Alcohol Use History: Occasional, Rare Additional Past Alcohol Use History / Comment(s): Started smoking at age 15 or 16 up to 2-1/2 packs per day and is currently down to 1ppd. Patient does give history of heavy alcohol abuse off and on in the past but had quit alcohol completely 3 years ago. She does smoke marijuana. Patient lives in an apartment building with 4 other adults. She uses a cane for ambulation. Past Drug Use History: None Reported - Past Family History Mother Additional Family Medical History / Comment(s): Mother at age 73 from a brain stem stroke. Brother(s) Additional Family Medical History / Comment(s): Patient has 2 full brothers with no major medical problems. Patient does not have any sisters. Patient has 3 sons with no major medical problems. Father Family Medical History: Congestive Heart Failure (CHF), Myocardial Infarction ([place]) Additional Family Medical History / Comment(s): Father at age 76 from a massive heart attack. Medications and Allergies Home Medications Medication Instructions Recorded Confirmed Type Apixaban [Eliquis] 5 mg PO BID #60 tab 08/09/19 11/18/19 Rx Pravastatin Sodium [Pravachol] 80 mg PO HS #30 tab 08/09/19 11/18/19 Rx amLODIPine [Norvasc] 5 mg PO DAILY #30 tab 08/09/19 11/18/19 Rx Desvenlafaxine Succinate [Pristiq 50 mg PO DAILY 11/18/19 11/18/19 History ER] QUEtiapine [SEROquel] 25 - 50 mg PO HS 11/18/19 11/18/19 History Umeclidinium [place] [Incruse 1 puff INHALATION RT-DAILY 11/18/19 11/18/19 History Ellipta] Allergies Allergy/AdvReac Type Severity Reaction Status Date / Time atorvastatin [From Lipitor] Allergy Unknown Verified 11/18/19 16:37 cephalexin monohydrate Allergy Rash/Hives Verified 11/18/19 16:37 [From Keflex] ciprofloxacin [From Cipro] Allergy Swelling Verified 11/18/19 16:37 latex Allergy Rash/Hives Verified 11/18/19 16:37 oxytetracycline Allergy Rash/Hives Verified 11/18/19 16:37 [From Terramycin] Penicillins Allergy Rash/Hives Verified 11/18/19 16:37 Sulfa (Sulfonamide Allergy Rash/Hives Verified 11/18/19 16:37 Antibiotics) Physical Exam Vitals: Vital Signs Temp Pulse Resp BP Pulse Ox 11/19/19 07:49 98.1 F 81 18 172/73 94 L 11/19/19 06:29 82 16 166/73 98 11/18/19 19:18 141/93 11/18/19 18:42 101 H 18 174/90 99 11/18/19 17:11 108 H 18 11/18/19 17:02 110 H 11/18/19 17:00 101 H 164/71 95 11/18/19 16:30 98 17 150/88 96 11/18/19 16:00 101 H 18 147/80 94 L 11/18/19 14:57 118 H 11/18/19 14:50 120 H 11/18/19 14:17 98.1 F 120 H 20 176/91 97 General appearance: average body habitus, cooperative, no acute distress - EENT Eyes: EOMI, PERRLA, normal appearance - Neck Neck: no lymphadenopathy, normal ROM, no rigidity - Respiratory Respiratory: bilateral: wheezing - Cardiovascular Rhythm: regular Heart sounds: normal: S1, S2 Abnormal Heart Sounds: no systolic murmur, no diastolic murmur - Gastrointestinal General gastrointestinal: no organomegaly, soft, no tenderness - Integumentary Integumentary: normal Linear scratches to the pretibial area on the right leg. No erythema, edema. No drainage. - Neurologic Neurologic: CNII-XII intact - Musculoskeletal Musculoskeletal: strength equal bilaterally, no right sided weakness, no left sided weakness - Psychiatric Psychiatric: A&O x's 3, appropriate affect, intact judgment & insight Results CBC & Chem 7: 11/18/19 14:44 11/18/19 14:44 Labs: Abnormal Lab Results - Last 24 Hours (Table) 11/18/19 Range/Units 14:44 BUN 23 H (7-17) mg/dL Glucose 109 H (74-99) mg/dL Calcium 10.3 H (8.4-10.2) mg/dL Thrombosis Risk Factor Assmnt - DVT/VTE Prophylaxis DVT/VTE Prophylaxis: Pharmacologic Prophylaxis ordered Assessment and Plan Plan: 1. Chest pain right-sided with right flank pain, musculoskeletal type pain. Cardiology consult appreciated. Patient started on Lopressor 25 mg twice daily and to follow-up with Dr. Christianson on discharge. 2. Paroxysmal atrial fibrillation. Continue eliquis, Lopressor. 3. History of stroke with no lateralized symptoms, stable. Continue eliquis 5 mg twice daily, aspirin reduced 81 mg daily, pravastatin 80 mg at bedtime. 4. COPD with acute exacerbation with tracheobronchitis. Patient started on DuoNeb treatments 4 times daily, Solu-Medrol 60 mg IV every 6 hours, azithromycin 500 mg daily, consult with pulmonary medicine 5. Hypertension, hypertensive cardio vascular disease. Continue Norvasc 5 mg daily, Lopressor. 6. Hyperlipidemia. Continue pravastatin. She states she is unable to tolerate atorvastatin. 7. Dementia, stable 8. Tobacco use and dependence. Smoking cessation. Nicotine patch ordered. 9. Fibromyalgia, stable. 10. GI prophylaxis. Pepcid. 10. DVT prophylaxis. Eliquis. 11. Depression. Continue Pristiq 50 mg daily, Seroquel 30 mg at bedtime Patient will be admitted to the hospital for a minimum of 2 night stay. Discharge plan: Most likely return home Impression and plan of care have been directed as dictated by the signing physician. Keyla Holloway nurse practitioner acting as scribe for signing physician.
[2019-11-19] MEDS: DESVENLAFAXINE SUCCINATE 50 MG TAB.ER.24H PO SCH ×2 (15:33→20:17)
--- NOTE | 2019-11-19 16:04 | P.CNPUL ---
History of Present Illness Consult date: 11/19/19 Reason for consult: dyspnea, chest pain, COPD History of present illness: A 68-year-old female patient, known history of COPD along with previous history of CVA and nonocclusive mild coronary artery disease based on a cardiac catheterization 2012 along with history of paroxysmal atrial fibrillation and hypertension and hyperlipidemia and chronic cigarette smoker. The patient was evaluated by our service back in 2016 for an acute COPD exacerbation. She came in yesterday to the emergency department complaining of sharp pain across her right lung radiating to the back. This was associated with breathing. She was coughing out some yellowish sputum that started around 24 hours prior to her hospital admission. No fever or chills. No hemoptysis. She had symptoms of cold and flu since 2018 and things have gotten worse since. She has been utilizing albuterol nebulized treatments at home. She is a 1 pack-a-day cigarette smoker. She has no home oxygen. In the emergency, the EKG showed atrial tachycardia with some nonspecific ST segment changes inferiorly and the rhythm was essentially sinus. The CBC was unremarkable. The d-dimer was 0.45. Electrodes are all within normal limits. The proBNP level was 363. 3 sets of cardiac exam is a been negative. The patient had an echocardiogram from July 2019 showing a preserved LV function with an EF of around 55-60%. The patient also had a CAT scan of the chest that was done in July 2019 showing emphysema without any significant mediastinal abnormalities or lung lesions or tumors. She is currently admitted for observation. No nausea. No vomiting. No altered mentation. No palpitations. No swelling in lower extremities. Review of Systems Constitutional: Reports fatigue, Reports weakness, Denies chills, Denies poor appetite Eyes: denies blurred vision, denies pain Ears, nose, mouth and throat: Denies dysphagia, Denies headache, Denies nasal congestion, Denies nasal discharge, Denies sore throat, Denies vertigo Cardiovascular: Reports chest pain, Reports shortness of breath, Denies lightheadedness, Denies syncope Respiratory: Reports cough, Reports cough with sputum, Reports dyspnea, Reports respiratory infections, Denies excessive sputum, Denies hemoptysis, Denies home oxygen. The patient also reports pain across her right chest radiating to her back. Gastrointestinal: Denies abdominal pain, Denies diarrhea, Denies nausea, Denies vomiting Genitourinary: Reports flank pain Musculoskeletal: Denies frequent falls, Denies gait dysfunction, Denies myalgias Integumentary: Reports wounds (Right lower leg), Denies pruritus, Denies rash Neurological: Denies change in mentation, Denies confusion, Denies numbness, Denies weakness Psychiatric: Denies anxiety, Denies depression Endocrine: Denies fatigue, Denies weight change Past Medical History Past Medical History: Atrial Fibrillation, Asthma, Coronary Artery Disease (CAD), Chest Pain / Angina, COPD, CVA/TIA, Dementia, Fibromyalgia, GERD/Reflux, Hyperlipidemia, Hypertension, Memory Impairment, Osteoarthritis (OA), Pneumonia Additional Past Medical History / Comment(s): EARLY DEMENTIA WITH SOME SHORT TERM MEMORY LOSS, NEUROPATHY BILATERAL UPPER AND LOWER EXTREMITIES, CHRONIC BACK PAIN, DJD, CVA 2006, TIA 2007, BRONCHITIS, SINUS PROBLEMS AT TIMES, 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 Past Anesthesia/Blood Transfusion Reactions: Previous Problems w/ Anesthesia Additional Past Anesthesia/Blood Transfusion Reaction / Comment(s): difficulty waking in past. clausterphobia Past Psychological History: Anxiety, Depression Smoking Status: Current every day smoker Past Alcohol Use History: Occasional, Rare Additional Past Alcohol Use History / Comment(s): Started smoking at age 15 or 16 up to 2-1/2 packs per day and is currently down to 1ppd. Patient does give history of heavy alcohol abuse off and on in the past but had quit alcohol completely 3 years ago. She does smoke marijuana. Patient lives in an apartment building with 4 other adults. She uses a cane for ambulation. Past Drug Use History: None Reported - Past Family History Mother Family Medical History: CVA/TIA Additional Family Medical History / Comment(s): Mother at age 73 from a brain stem stroke. Brother(s) Additional Family Medical History / Comment(s): Patient has 2 full brothers with no major medical problems. Patient does not have any sisters. Patient has 3 sons with no major medical problems. Father Family Medical History: Congestive Heart Failure (CHF), Myocardial Infarction ([place]) Additional Family Medical History / Comment(s): Father at age 76 from a massive heart attack. Medications and Allergies Home Medications Medication Instructions Recorded Confirmed Type Apixaban [Eliquis] 5 mg PO BID #60 tab 08/09/19 11/18/19 Rx Pravastatin Sodium [Pravachol] 80 mg PO HS #30 tab 08/09/19 11/18/19 Rx amLODIPine [Norvasc] 5 mg PO DAILY #30 tab 08/09/19 11/18/19 Rx Desvenlafaxine Succinate [Pristiq 50 mg PO DAILY 11/18/19 11/18/19 History ER] QUEtiapine [SEROquel] 25 - 50 mg PO HS 11/18/19 11/18/19 History Umeclidinium [place] [Incruse 1 puff INHALATION RT-DAILY 11/18/19 11/18/19 History Ellipta] Allergies Allergy/AdvReac Type Severity Reaction Status Date / Time atorvastatin [From Lipitor] Allergy Unknown Verified 11/18/19 16:37 cephalexin monohydrate Allergy Rash/Hives Verified 11/18/19 16:37 [From Keflex] ciprofloxacin [From Cipro] Allergy Swelling Verified 11/18/19 16:37 latex Allergy Rash/Hives Verified 11/18/19 16:37 oxytetracycline Allergy Rash/Hives Verified 11/18/19 16:37 [From Terramycin] Penicillins Allergy Rash/Hives Verified 11/18/19 16:37 Sulfa (Sulfonamide Allergy Rash/Hives Verified 11/18/19 16:37 Antibiotics) Physical Exam Vitals: Vital Signs Temp Pulse Pulse Resp BP BP Pulse Ox 11/19/19 14:55 72 11/19/19 14:45 72 11/19/19 14:16 97.9 F 68 18 157/77 99 11/19/19 13:58 97.9 F 11/19/19 13:11 80 18 116/74 98 11/19/19 12:43 90 18 97 11/19/19 11:22 68 11/19/19 11:12 70 11/19/19 11:11 18 11/19/19 11:10 71 18 147/50 98 11/19/19 07:49 98.1 F 81 18 172/73 94 L 11/19/19 06:29 82 16 166/73 98 11/18/19 19:18 141/93 11/18/19 18:42 101 H 18 174/90 99 11/18/19 17:11 108 H 18 11/18/19 17:02 110 H 11/18/19 17:00 101 H 164/71 95 11/18/19 16:30 98 17 150/88 96 11/18/19 16:00 101 H 18 147/80 94 L Intake and Output 11/19/19 11/19/19 11/19/19 06:59 14:59 22:59 Other: Weight 71.668 kg Head exam was generally normal. There was no scleral icterus or corneal arcus. Mucous membranes were moist.Neck was supple and without jugular venous distension, thyromegaly, or carotid bruits. Carotids were easily palpable bilaterally. There was no adenopathy. Lung sounds are diminished bilaterally and there is prolongation of expiratory phase of breathing heard throughout the lung ravi.Cardiac exam revealed the PMI to be normally situated and sized. The rhythm was regular and no extrasystoles were noted during several minutes of auscultation. The first and second heart sounds were normal and physiologic splitting of the second heart sound was noted. There were no murmurs, rubs, clicks, or gallops.Abdominal exam revealed normal bowel sounds. The abdomen was soft, non-tender, and without masses, organomegaly, or appreciable enlargement of the abdominal aorta.Examination of the extremities revealed easily palpable radial, femoral and pedal pulses. There was no cyanosis, clubbing or edema.Examination of the skin revealed no evidence of significant rashes, suspicious appearing nevi or other concerning lesions. Neurologically patient is awake and alert and her neurologic exam is nonfocal. 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 The patient also has symptoms of bronchitis. She is producing yellowish sputum. The pain has been mainly on the right side of the chest. This is probably related to her bronchitis. Doubt any cardiac pain at this point in time. Chest x-ray is not showing any acute consolidation or pneumonia. EKG and the cardiac enzymes were negative. The patient was also seen by cardiology. She is currently on examination bronchodilators and systemic steroids. She is also covered with antibiotics. She was given a dose of Zithromax in the emergency department. 2 chronic smoking, smoked 1 pack of cigarettes a day 3 chronic dyspnea secondary to above 4 difficulty with mobility and gait and the patient wound walks up with help of a walker, has chronic neuropathy 5 axillary atrial fibrillation current rhythm is sinus 6 history of atypical chest pain and the cardiac workup has been negative incl uding previous stress test, previous cardiac catheterization in 2013 and the most recent echocardiogram is still within normal limits. 7 hiatal hernia 8 fibromyalgia 9 dementia 10 acid reflux 11 hypertension 12 hyperlipidemia 13 IBS 14 peripheral neuropathy 15 history of CVA/TIA Plan The patient on DuoNeb nebulized treatments 4 times a day [id number]. Put the patient IV Solu Medrol 60 every 6 hours. Gram stain and culture of the sputum Cover the patient with empiric antibiotics with Zithromax and there is absence of any acute pulmonary infiltrates onchest x-ray. Robitussin-DM for cough and congestion Smoking cessation counseling was done. Assessment Saturations once the patient is more stable and evaluated this patient for home O2. Cardiology evaluation. The pain itself and the chest is atypical and noncardiac in nature.
[2019-11-19 16:37] LABS: Glucose,Whole Blood 181 mg/dL (75-99)
[2019-11-19] MEDS: INSULIN ASPART (NovoLOG) 100 UNIT/ML VIAL SQ SCH ×2 (17:10→20:12)
[2019-11-19] MEDS: NICOTINE 21MG/24HR PATCH TRANSDERM SCH (17:10)
[2019-11-19 19:58] LABS: Glucose,Whole Blood 212 mg/dL (75-99)
[2019-11-19] MEDS: guaiFENesin-DM 600/30MG 1 EACH TAB.ER.12H PO SCH (20:14)
[2019-11-19] MEDS: PRAVASTATIN SODIUM 80 MG TAB PO SCH (20:17)
[2019-11-19] MEDS: QUEtiapine 50 MG TAB PO SCH (20:17)
[2019-11-20] MEDS: methylPREDNISolone SOD SUCCI 125 MG/2 ML VIAL IV SCH ×4 (05:04→23:35)
[2019-11-20 06:46] LABS: Glucose,Whole Blood 179 mg/dL (75-99)
[2019-11-20] MEDS: IPRATROPIUM-ALBUTEROL 3 ML NEB INHALATION SCH ×4 (07:18→20:01)
[2019-11-20] MEDS: INSULIN ASPART (NovoLOG) 100 UNIT/ML VIAL SQ SCH ×4 (08:19→20:58)
[2019-11-20] MEDS: APIXABAN 5 MG TAB PO SCH ×2 (08:20→20:57)
[2019-11-20] MEDS: METOPROLOL TARTRATE 25 MG TAB PO SCH ×2 (08:20→20:57)
[2019-11-20] MEDS: FAMOTIDINE 20 MG TAB PO SCH (08:20)
[2019-11-20] MEDS: NICOTINE 21MG/24HR PATCH TRANSDERM SCH (08:21)
[2019-11-20] MEDS: amLODIPine 5 MG TAB PO SCH (08:21)
[2019-11-20] MEDS: guaiFENesin-DM 600/30MG 1 EACH TAB.ER.12H PO SCH ×2 (08:21→20:57)
[2019-11-20] MEDS: MORPHINE SULFATE 2 MG/ML SYRINGE IVP PRN ×2 (10:20→20:58)
[2019-11-20 11:41] LABS: Glucose,Whole Blood 152 mg/dL (75-99)
[2019-11-20] MEDS ORDERED: AZITHROMYCIN 500 MG in SODIUM CHLORIDE 0.9% 250 ML IVPB SCH (12:00)
[2019-11-20] MEDS: AZITHROMYCIN 500 MG TAB PO SCH (12:01)
--- NOTE | 2019-11-20 13:54 | P.PN ---
Subjective Progress Note Date: 11/20/19 A 68-year-old female patient, known history of COPD along with previous history of CVA and nonocclusive mild coronary artery disease based on a cardiac catheterization 2012 along with history of paroxysmal atrial fibrillation and hypertension and hyperlipidemia and chronic cigarette smoker. The patient was evaluated by our service back in 2016 for an acute COPD exacerbation. She came in yesterday to the emergency department complaining of sharp pain across her right lung radiating to the back. This was associated with breathing. She was coughing out some yellowish sputum that started around 24 hours prior to her hospital admission. No fever or chills. No hemoptysis. She had symptoms of cold and flu since 2018 and things have gotten worse since. She has been utilizing albuterol nebulized treatments at home. She is a 1 pack-a-day cigarette smoker. She has no home oxygen. In the emergency, the EKG showed atrial tachycardia with some nonspecific ST segment changes inferiorly and the rhythm was essentially sinus. The CBC was unremarkable. The d-dimer was 0.45. Electrodes are all within normal limits. The proBNP level was 363. 3 sets of cardiac exam is a been negative. The patient had an echocardiogram from July 2019 showing a preserved LV function with an EF of around 55-60%. The patient also had a CAT scan of the chest that was done in July 2019 showing emphysema without any significant mediastinal abnormalities or lung lesions or tumors. She is currently admitted for observation. No nausea. No vomiting. No altered mentation. No palpitations. No swelling in lower extre On 11/20/2019 there is limited improvement. The patient is having some soreness in her throat and she feels that her throat and glands are somewhat enlarged with some earaches and soreness in her chest in addition to cough congestion chest tightness or wheezing her presentation still similar to yesterday. Sr. on Zithromax. She remains on IV Solu-Medrol. She remains on bronchodilators. Objective - Vital Signs Vital signs: Vital Signs Temp 98.0 F 11/20/19 07:10 Pulse 76 11/20/19 11:38 Resp 18 11/20/19 07:10 BP 147/73 11/20/19 07:10 Pulse Ox 99 11/20/19 07:10 Intake & Output 11/19/19 11/20/19 11/20/19 18:59 06:59 18:59 Intake Total 480 560 Balance 480 560 Weight 71.668 kg Intake: Oral 480 360 Other 200 Other: Voiding Method Toilet # Voids 2 1 1 - Exam Head exam was generally normal. There was no scleral icterus or corneal arcus. Mucous membranes were moist.Neck was supple and without jugular venous distension, thyromegaly, or carotid bruits. Carotids were easily palpable bilaterally. There was no adenopathy. Lung sounds are diminished bilaterally and there is prolongation of expiratory phase of breathing heard throughout the lung ravi.Cardiac exam revealed the PMI to be normally situated and sized. The rhythm was regular and no extrasystoles were noted during several minutes of auscultation. The first and second heart sounds were normal and physiologic splitting of the second heart sound was noted. There were no murmurs, rubs, clicks, or gallops.Abdominal exam revealed normal bowel sounds. The abdomen was soft, non-tender, and without masses, organomegaly, or appreciable enlargement of the abdominal aorta.Examination of the extremities revealed easily palpable radial, femoral and pedal pulses. There was no cyanosis, clubbing or ed ze.Examination of the skin revealed no evidence of significant rashes, suspicious appearing nevi or other concerning lesions. Neurologically patient is awake and alert and her neurologic exam is nonfocal. 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 The patient also has symptoms of bronchitis. She is producing yellowish sputum. The pain has been mainly on the right side of the chest. This is probably related to her bronchitis. Doubt any cardiac pain at this point in time. Chest x-ray is not showing any acute consolidation or pneumonia. EKG and the cardiac enzymes were negative. The patient was also seen by cardiology. She is currently on ex amination bronchodilators and systemic steroids. She is also covered with antibiotics. She was given a dose of Zithromax in the emergency department. 2 chronic smoking, smoked 1 pack of cigarettes a day 3 chronic dyspnea secondary to above 4 difficulty with mobility and gait and the patient wound walks up with help of a walker, has chronic neuropathy 5 axillary atrial fibrillation current rhythm is sinus 6 history of atypical chest pain and the cardiac workup has been negative including previous stress test, previous cardiac catheterization in 2013 and the most recent echocardiogram is still within normal limits. 7 hiatal hernia 8 fibromyalgia 9 dementia 10 acid reflux 11 hypertension 12 hyperlipidemia 13 IBS 14 peripheral neuropathy 15 history of CVA/TIA Plan I suggested continuing treatment for now The patient on DuoNeb nebulized treatments 4 times a day [id number]. Put the patient IV Solu Medrol 60 every 6 hours. Gram stain and culture of the sputum Cover the patient with empiric antibiotics with Zithromax and there is absence of any acute pulmonary infiltrates onchest x-ray. Mucinex for cough and congestion
--- NOTE | 2019-11-20 15:05 | P.PN ---
Subjective Progress Note Date: 11/20/19 This is a 68-year-old female patient of Dr. Vo with past medical history of paroxysmal atrial fibrillation on eliquis, history of CVA, dementia, fibromyalgia, osteoarthritis, hypertension hypertensive cardiovascular disease, hyperlipidemia, hiatal hernia, osteoporosis, neuropathy, headaches, glaucoma, COPD and chronic smoker. Patient gives history of increasing difficulty breathing with pain in the right side of her chest that was excruciating. She complains of cough with shortness of breath. She was seen by her PCP and due to chest pain was instructed to come into the hospital. Patient is currently smoking 1 pack per day and has been smoking since age 15. Patient presented to [facility] emergency center for evaluation. She was found to be afebrile, blood pressure 147/50, heart rate 68, pulse ox 98% on 2 L nasal cannula. Chest x-ray showed no acute cardio pulmonary process. CBC unremarkable, d-dimer 0.45, sodium 142, potassium 4.2, creatinine 0.94, cardiac enzymes negative negative x3 and proBNP 363. EKG was a sinus tachycardia. Patient was started on DuoNeb treatments, IV Solu-Medrol and placed on the observation unit. Cardiology consult was requested. Patient apparently has seen Dr. Oh in the past but has been a long time. Consult placed with Dr. Berg. 11/20: Patient has been seen by Dr. Berg with plan to continue current medic ations, Solu-Medrol will remain at 60 mg every 6 hours. Patient is also been seen by cardiology and acute coronary syndrome has been ruled out and patient to follow-up with Dr. Christianson as an outpatient. Patient states that she is feeling worse today. From coughing she is also experiencing pain up into her neck and head. Continues to feel short of breath with cough. Review of Systems Constitutional: Reports fatigue, Reports weakness, Denies chills, Denies poor appetite Eyes: denies blurred vision, denies pain Ears, nose, mouth and throat: Denies dysphagia, Denies headache, Denies nasal congestion, Denies nasal discharge, Denies sore throat, Denies vertigo, reports neck pain Cardiovascular: Reports chest pain, Reports shortness of breath, Denies lightheadedness, Denies syncope Respiratory: Reports cough, Reports cough with sputum, Reports dyspnea, Reports respiratory infections, Denies excessive sputum, Denies hemoptysis, Denies home oxygen Gastrointestinal: Denies abdominal pain, Denies diarrhea, Denies nausea, Denies vomiting Genitourinary: Reports flank pain Musculoskeletal: Denies frequent falls, Denies gait dysfunction, Denies myalgias Integumentary: Reports wounds (Right lower leg), Denies pruritus, Denies rash Neurological: Denies change in mentation, Denies confusion, Denies numbness, Denies weakness Psychiatric: Denies anxiety, Denies depression Endocrine: Denies fatigue, Denies weight change Objective - Vital Signs Vital signs: Vital Signs Temp 98.0 F 11/20/19 07:10 Pulse 76 11/20/19 11:38 Resp 18 11/20/19 07:10 BP 147/73 11/20/19 07:10 Pulse Ox 99 11/20/19 07:10 Intake & Output 11/19/19 11/20/19 11/20/19 18:59 06:59 18:59 Intake Total 480 800 Balance 480 800 Weight 71.668 kg Intake: Oral 480 600 Other 200 Other: Voiding Method Toilet # Voids 2 1 1 - Exam General appearance: average body habitus, cooperative, mild acute distress - EENT Eyes: EOMI, PERRLA, normal appearance - Neck Neck: no lymphadenopathy, normal ROM, no rigidity - Respiratory Respiratory: bilateral: wheezing - Cardiovascular Rhythm: regular Heart sounds: normal: S1, S2 Abnormal Heart Sounds: no systolic murmur, no diastolic murmur - Gastrointestinal General gastrointestinal: no organomegaly, soft, no tenderness - Integumentary Integumentary: normal Linear scratches to the pretibial area on the right leg. No erythema, edema. No drainage. - Neurologic Neurologic: CNII-XII intact - Musculoskeletal Musculoskeletal: strength equal bilaterally, no right sided weakness, no left sided weakness - Psychiatric Psychiatric: A&O x's 3, appropriate affect, intact judgment & insight - Labs CBC & Chem 7: 11/18/19 14:44 11/18/19 14:44 Labs: Abnormal Lab Results - Last 24 Hours (Table) 11/19/19 11/19/19 11/20/19 Range/Units 16:36 19:55 06:44 POC Glucose (mg/dL) 181 H 212 H 179 H (75-99) mg/dL 11/20/19 Range/Units 11:37 POC Glucose (mg/dL) 152 H (75-99) mg/dL Assessment and Plan Plan: 1. Chest pain right-sided with right flank pain, musculoskeletal type pain. Cardiology consult appreciated. Patient started on Lopressor 25 mg twice daily and to follow-up with Dr. Christianson on discharge. 2. Paroxysmal atrial fibrillation. Continue eliquis, Lopressor. 3. History of stroke with no lateralized symptoms, stable. Continue eliquis 5 mg twice daily, aspirin reduced 81 mg daily, pravastatin 80 mg at bedtime. 4. COPD with acute exacerbation with tracheobronchitis. Patient started on DuoNeb treatments 4 times daily, Solu-Medrol 60 mg IV every 6 hours-no change, azithromycin 500 mg daily, consult with pulmonary medicine 5. Hypertension, hypertensive cardio vascular disease. Continue Norvasc 5 mg daily, Lopressor. 6. Hyperlipidemia. Continue pravastatin. She states she is unable to tolerate atorvastatin. 7. Dementia, stable 8. Tobacco use and dependence. Smoking cessation. Nicotine patch ordered. 9. Fibromyalgia, stable. 10. GI prophylaxis. Pepcid. 10. DVT prophylaxis. Eliquis. 11. Depression, recurrent. Continue Pristiq 50 mg daily, Seroquel 30 mg at bedtime Discharge plan: Most likely return home Impression and plan of care have been directed as dictated by the signing physician. Keyla Holloway nurse practitioner acting as scribe for signing physician.
[2019-11-20 16:40] LABS: Glucose,Whole Blood 150 mg/dL (75-99)
[2019-11-20 19:37] LABS: Glucose,Whole Blood 169 mg/dL (75-99)
[2019-11-20] MEDS: PRAVASTATIN SODIUM 80 MG TAB PO SCH (20:57)
[2019-11-20] MEDS: QUEtiapine 50 MG TAB PO SCH (20:57)
[2019-11-21] MEDS: methylPREDNISolone SOD SUCCI 125 MG/2 ML VIAL IV SCH ×2 (05:06→11:59)
[2019-11-21 07:02] LABS: Glucose,Whole Blood 153 mg/dL (75-99)
[2019-11-21] MEDS: IPRATROPIUM-ALBUTEROL 3 ML NEB INHALATION SCH ×4 (07:04→20:57)
[2019-11-21] MEDS: guaiFENesin-DM 600/30MG 1 EACH TAB.ER.12H PO SCH ×2 (08:34→20:13)
[2019-11-21] MEDS: FAMOTIDINE 20 MG TAB PO SCH (08:35)
[2019-11-21] MEDS: APIXABAN 5 MG TAB PO SCH ×2 (08:35→20:13)
[2019-11-21] MEDS: METOPROLOL TARTRATE 25 MG TAB PO SCH ×2 (08:35→20:13)
[2019-11-21] MEDS: NICOTINE 21MG/24HR PATCH TRANSDERM SCH (08:35)
[2019-11-21] MEDS: DESVENLAFAXINE SUCCINATE 50 MG TAB.ER.24H PO SCH ×2 (08:35→20:13)
[2019-11-21] MEDS: amLODIPine 5 MG TAB PO SCH (08:35)
[2019-11-21] MEDS: INSULIN ASPART (NovoLOG) 100 UNIT/ML VIAL SQ SCH ×4 (08:36→20:24)
[2019-11-21 11:46] LABS: Glucose,Whole Blood 246 mg/dL (75-99)
[2019-11-21] MEDS: AZITHROMYCIN 500 MG TAB PO SCH (11:59)
--- NOTE | 2019-11-21 13:50 | P.PN ---
Subjective Progress Note Date: 11/21/19 This is a 68-year-old female patient of Dr. Vo with past medical history of paroxysmal atrial fibrillation on eliquis, history of CVA, dementia, fibromyalgia, osteoarthritis, hypertension hypertensive cardiovascular disease, hyperlipidemia, hiatal hernia, osteoporosis, neuropathy, headaches, glaucoma, COPD and chronic smoker. Patient gives history of increasing difficulty breathing with pain in the right side of her chest that was excruciating. She complains of cough with shortness of breath. She was seen by her PCP and due to chest pain was instructed to come into the hospital. Patient is currently smoking 1 pack per day and has been smoking since age 15. Patient presented to [facility] emergency center for evaluation. She was found to be afebrile, blood pressure 147/50, heart rate 68, pulse ox 98% on 2 L nasal cannula. Chest x-ray showed no acute cardio pulmonary process. CBC unremarkable, d-dimer 0.45, sodium 142, potassium 4.2, creatinine 0.94, cardiac enzymes negative negative x3 and proBNP 363. EKG was a sinus tachycardia. Patient was started on DuoNeb treatments, IV Solu-Medrol and placed on the observation unit. Cardiology consult was requested. Patient apparently has seen Dr. Oh in the past but has been a long time. Consult placed with Dr. Berg. 11/20: Patient has been seen by Dr. Berg with plan to continue current medic ations, Solu-Medrol will remain at 60 mg every 6 hours. Patient is also been seen by cardiology and acute coronary syndrome has been ruled out and patient to follow-up with Dr. Christianson as an outpatient. Patient states that she is feeling worse today. From coughing she is also experiencing pain up into her neck and head. Continues to feel short of breath with cough. 11/21: Patient has been afebrile, heart rate 55, blood pressure 150/63, pulse ox 94% on room air. Blood sugars running between 153 and 169. Patient is currently on Solu-Medrol 60 mg IV every 6 hours which will be decreased to 40 mg every 8 hours. Patient continues to complain of neck pain, chest pain and tenderness secondary to coughing. Patient is followed by Dr. Berg. Review of Systems Constitutional: Reports fatigue, Reports weakness, Denies chills, Denies poor appetite Eyes: denies blurred vision Ears, nose, mouth and throat: Denies dysphagia, Denies headache, Denies nasal congestion, Denies nasal discharge, Denies sore throat, Denies vertigo, reports neck pain Cardiovascular: Reports chest pain, Reports shortness of breath, Denies lightheadedness, Denies syncope Respiratory: Reports cough, Reports cough with sputum, Reports dyspnea, Reports respiratory infections, Denies excessive sputum, Denies hemoptysis, Denies home oxygen Gastrointestinal: Denies abdominal pain, Denies diarrhea, Denies nausea, Denies vomiting Genitourinary: Reports flank pain, denies dysuria Musculoskeletal: Denies frequent falls, Denies gait dysfunction, Denies myalgias Integumentary: Reports wounds (Right lower leg), Denies pruritus, Denies rash Neurological: Denies change in mentation, Denies confusion, Denies numbness, Denies weakness Psychiatric: Denies anxiety, Denies depression Endocrine: Denies fatigue, Denies weight change Objective - Vital Signs Vital signs: Vital Signs Temp 97.4 F L 11/21/19 08:30 Pulse 55 L 11/21/19 08:30 Resp 18 11/21/19 08:30 BP 150/63 11/21/19 08:30 Pulse Ox 94 L 11/21/19 08:30 Intake & Output 11/20/19 11/21/19 11/21/19 18:59 06:59 18:59 Intake Total 1360 Balance 1360 Intake: Oral 960 Other 400 Other: Voiding Method Toilet Toilet Toilet Bedside Commode Bedside Commode # Voids 1 2 # Bowel Movements 1 - Exam General appearance: average body habitus, cooperative, no acute distress, sitting up in chair eating lunch. - EENT Eyes: EOMI, PERRLA, normal appearance - Neck Neck: no lymphadenopathy, normal ROM, no rigidity - Respiratory Respiratory: bilateral: wheezing - Cardiovascular Rhythm: regular Heart sounds: normal: S1, S2 Abnormal Heart Sounds: no systolic murmur, no diastolic murmur - Gastrointestinal General gastrointestinal: no organomegaly, soft, no tenderness - Integumentary Integumentary: normal Linear scratches to the pretibial area on the right leg. No erythema, edema. No drainage. - Neurologic Neurologic: CNII-XII intact - Musculoskeletal Musculoskeletal: strength equal bilaterally, no right sided weakness, no left sided weakness - Psychiatric Psychiatric: A&O x's 3, appropriate affect, intact judgment & insight - Labs CBC & Chem 7: 11/18/19 14:44 11/18/19 14:44 Labs: Abnormal Lab Results - Last 24 Hours (Table) 11/20/19 11/20/19 11/20/19 Range/Units 11:37 16:37 19:35 POC Glucose (mg/dL) 152 H 150 H 169 H (75-99) mg/dL 11/21/19 Range/Units 07:00 POC Glucose (mg/dL) 153 H (75-99) mg/dL Assessment and Plan Plan: 1. Chest pain right-sided with right flank pain, musculoskeletal type pain. Cardiology consult appreciated. Patient started on Lopressor 25 mg twice daily and to follow-up with Dr. Christianson on discharge. 2. Paroxysmal atrial fibrillation. Continue eliquis, Lopressor. 3. History of stroke with no lateralized symptoms, stable. Continue eliquis 5 mg twice daily, aspirin reduced 81 mg daily, pravastatin 80 mg at bedtime. 4. COPD with acute exacerbation with tracheobronchitis. Patient started on DuoNeb treatments 4 times daily, Solu-Medrol decreased to 40 mg IV every 8 hours, azithromycin 500 mg daily, consult with pulmonary medicine 5. Hypertension, hypertensive cardio vascular disease. Continue Norvasc 5 mg daily, Lopressor. 6. Hyperlipidemia. Continue pravastatin. She states she is unable to tolerate atorvastatin. 7. Dementia, stable 8. Tobacco use and dependence. Smoking cessation. Nicotine patch ordered. 9. Fibromyalgia, stable. 10. GI prophylaxis. Pepcid. 10. DVT prophylaxis. Eliquis. 11. Depression, recurrent. Continue Pristiq 50 mg daily, Seroquel 30 mg at bedtime Discharge plan: Most likely return home Impression and plan of care have been directed as dictated by the signing physician. Keyla Holloway nurse practitioner acting as scribe for signing physician.
[2019-11-21] MEDS: MORPHINE SULFATE 2 MG/ML SYRINGE IVP PRN ×3 (13:54→23:42)
--- NOTE | 2019-11-21 14:57 | P.PN ---
Subjective Progress Note Date: 11/21/19 Principal diagnosis: COPD exacerbation A 68-year-old female patient, known history of COPD along with previous history of CVA and nonocclusive mild coronary artery disease based on a cardiac catheterization 2012 along with history of paroxysmal atrial fibrillation and hypertension and hyperlipidemia and chronic cigarette smoker. The patient was evaluated by our service back in 2016 for an acute COPD exacerbation. She came in yesterday to the emergency department complaining of sharp pain across her right lung radiating to the back. This was associated with breathing. She was coughing out some yellowish sputum that started around 24 hours prior to her hospital admission. No fever or chills. No hemoptysis. She had symptoms of cold and flu since 2018 and things have gotten worse since. She has been utilizing albuterol nebulized treatments at home. She is a 1 pack-a-day cigarette smoker. She has no home oxygen. In the emergency, the EKG showed atrial tachycardia with some nonspecific ST segment changes inferiorly and the rhythm was essentially sinus. The CBC was unremarkable. The d-dimer was 0.45. Electrodes are all within normal limits. The proBNP level was 363. 3 sets of cardiac exam is a been negative. The patient had an echocardiogram from July 2019 showing a preserved LV function with an EF of around 55-60%. The patient also had a CAT scan of the chest that was done in July 2019 showing emphysema without any significant mediastinal abnormalities or lung lesions or tumors. She is currently admitted for observation. No nausea. No vomiting. No altered mentation. No palpitations. No swelling in lower extre On 11/20/2019 there is limited improvement. The patient is having some soreness in her throat and she feels that her throat and glands are somewhat enlarged with some earaches and soreness in her chest in addition to cough congestion chest tightness or wheezing her presentation still similar to yesterday. Sr. on Zithromax. She remains on IV Solu-Medrol. She remains on bronchodilators. On 11/21/2019 patient seen in follow-up in the observation unit, still dyspneic, with some improvement in her dyspnea, lung sounds are diminished with end expiratory wheezing, patient is on room air, vital signs are stable, she has had no fever or chills, no significant cough or phlegm production, she is c omplaining of right-sided pain in the chest, which is thought to be musculoskeletal in nature because it is exacerbated by coughing and movement. She is receiving IV morphine for pain control, remains on IV steroids which were tapered to 40 mg every 8 hours, Zithromax and nebulized bronchodilators. Objective - Vital Signs Vital signs: Vital Signs Temp 97.6 F 11/21/19 12:00 Pulse 70 11/21/19 12:00 Resp 18 11/21/19 12:00 BP 180/61 11/21/19 12:00 Pulse Ox 97 11/21/19 12:00 Intake & Output 11/20/19 11/21/19 11/21/19 18:59 06:59 18:59 Intake Total 1360 Balance 1360 Intake: Oral 960 Other 400 Other: Voiding Method Toilet Toilet Toilet Bedside Commode Bedside Commode # Voids 1 2 # Bowel Movements 1 - Exam GENERAL EXAM: Alert, very pleasant, 60-year-old white female, on room air comfortable in no apparent distress. HEAD: Normocephalic/atraumatic. EYES: Normal reaction of pupils, equal size. Conjunctiva pink, sclera white. NOSE: Clear with pink turbinates. THROAT: No erythema or exudates. NECK: No masses, no JVD, no thyroid enlargement, no adenopathy. CHEST: No chest wall deformity. Symmetrical expansion. LUNGS: Diminished air entry with expiratory wheezes CVS: Regular rate and rhythm, normal S1 and S2, no gallops, no murmurs, no rubs ABDOMEN: Soft, nontender. No hepatosplenomegaly, normal bowel sounds, no guarding or rigidity. EXTREMITIES: No clubbing, no edema, no cyanosis, 2+ pulses and upper and lower extremities. MUSCULOSKELETAL: Muscle strength and tone normal. SPINE: No scoliosis or deformity SKIN: No rashes CENTRAL NERVOUS SYSTEM: Alert and oriented -3. No focal deficits, tone is norm al in all 4 extremities. PSYCHIATRIC: Alert and oriented -3. Appropriate affect. Intact judgment and insight. - Labs CBC & Chem 7: 11/18/19 14:44 11/18/19 14:44 Labs: Abnormal Lab Results - Last 24 Hours (Table) 11/20/19 11/20/19 11/21/19 Range/Units 16:37 19:35 07:00 POC Glucose (mg/dL) 150 H 169 H 153 H (75-99) mg/dL 11/21/19 Range/Units 11:44 POC Glucose (mg/dL) 246 H (75-99) mg/dL Assessment and Plan Plan: Assessment: 1 acute COPD exacerbation with secondary shortness of breath. The patient also has symptoms of bronchitis. She is producing yellowish sputum. The pain has been mainly on the right side of the chest. This is probably related to her bronchitis. Doubt any cardiac pain at this point in time. Chest x-ray is not showing any acute consolidation or pneumonia. EKG and the cardiac enzymes were negative. The patient was also seen by cardiology. She is currently on examination bronchodilators and systemic steroids. She is also covered with antibiotics. She was given a dose of Zithromax in the emergency department. 2 chronic smoking, smoked 1 pack of cigarettes a day 3 chronic dyspnea secondary to above 4 difficulty with mobility and gait and the patient wound walks up with help of a walker, has chronic neuropathy 5 axillary atrial fibrillation current rhythm is sinus 6 history of atypical chest pain and the cardiac workup has been negative including previous stress test, previous cardiac catheterization in 2013 and the most recent echocardiogram is still within normal limits. 7 hiatal hernia 8 fibromyalgia 9 dementia 10 acid reflux 11 hypertension 12 hyperlipidemia 13 IBS 14 peripheral neuropathy 15 history of CVA/TIA Plan: Continue current medical treatment, empiric antibiotics, IV steroids, and pain management the right chest, neck and back pain, which is thought to be musculoskeletal in nature related to coughing. Not quite ready for discharge, not back to baseline still remains dyspneic and bronchospastic with some limited improvement, we will continue to follow I performed a history & physical examination of the patient and discussed their management with my nurse practitioner, Brittany Frazier. I reviewed the nurse practitioner's note and agree with the documented findings and plan of care. Lung sounds are positive for diffuse wheezes throughout the lung ravi. The findings and the impression was discussed with the patient. I attest to the documentation by the nurse practitioner. Time with Patient: Less than 30
[2019-11-21 16:38] LABS: Glucose,Whole Blood 151 mg/dL (75-99)
[2019-11-21] MEDS: methylPREDNISolone SOD SUCCI 40 MG/ML 1 ML VIAL IV SCH ×2 (16:59→23:37)
[2019-11-21] MEDS: QUEtiapine 50 MG TAB PO SCH (20:13)
[2019-11-21] MEDS: PRAVASTATIN SODIUM 80 MG TAB PO SCH (20:13)
[2019-11-21 20:19] LABS: Glucose,Whole Blood 224 mg/dL (75-99)
[2019-11-22 07:06] LABS: Glucose,Whole Blood 137 mg/dL (75-99)
[2019-11-22] MEDS: IPRATROPIUM-ALBUTEROL 3 ML NEB INHALATION SCH ×4 (07:40→19:04)
[2019-11-22] MEDS: INSULIN ASPART (NovoLOG) 100 UNIT/ML VIAL SQ SCH ×4 (08:13→20:24)
[2019-11-22] MEDS: FAMOTIDINE 20 MG TAB PO SCH (09:27)
[2019-11-22] MEDS: amLODIPine 5 MG TAB PO SCH (09:27)
[2019-11-22] MEDS: guaiFENesin-DM 600/30MG 1 EACH TAB.ER.12H PO SCH ×2 (09:27→20:24)
[2019-11-22] MEDS: NICOTINE 21MG/24HR PATCH TRANSDERM SCH (09:28)
[2019-11-22] MEDS: methylPREDNISolone SOD SUCCI 40 MG/ML 1 ML VIAL IV SCH ×3 (09:28→23:14)
[2019-11-22] MEDS: METOPROLOL TARTRATE 25 MG TAB PO SCH ×2 (09:28→20:24)
[2019-11-22] MEDS: APIXABAN 5 MG TAB PO SCH ×2 (09:28→20:24)
--- NOTE | 2019-11-22 10:02 | P.PN ---
Subjective Progress Note Date: 11/22/19 Principal diagnosis: Acute exacerbation of chronic obstructive pulmonary disease. A 68-year-old female patient, known history of COPD along with previous history of CVA and nonocclusive mild coronary artery disease based on a cardiac catheterization 2012 along with history of paroxysmal atrial fibrillation and hypertension and hyperlipidemia and chronic cigarette smoker. The patient was evaluated by our service back in 2016 for an acute COPD exacerbation. She came in yesterday to the emergency department complaining of sharp pain across her right lung radiating to the back. This was associated with breathing. She was coughing out some yellowish sputum that started around 24 hours prior to her hospital admission. No fever or chills. No hemoptysis. She had symptoms of cold and flu since 2018 and things have gotten worse since. She has been utilizing albuterol nebulized treatments at home. She is a 1 pack-a-day cigarette smoker. She has no home oxygen. In the emergency, the EKG showed atrial tachycardia with some nonspecific ST segment changes inferiorly and the rhythm was essentially sinus. The CBC was unremarkable. The d-dimer was 0.45. Electrodes are all within normal limits. The proBNP level was 363. 3 sets of cardiac exam is a been negative. The patient had an echocardiogram from July 2019 showing a preserved LV function with an EF of around 55-60%. The patient also had a CAT scan of the chest that was done in July 2019 showing emphysema without any significant mediastinal abnormalities or lung lesions or tumors. She is currently admitted for observation. No nausea. No vomiting. No altered mentation. No palpitations. No swelling in lower extre On 11/20/2019 there is limited improvement. The patient is having some soreness in her throat and she feels that her throat and glands are somewhat enlarged with some earaches and soreness in her chest in addition to cough congestion chest tightness or wheezing her presentation still similar to yesterday. Sr. on Zithromax. She remains on IV Solu-Medrol. She remains on bronchodilators. On 11/21/2019 patient seen in follow-up in the observation unit, still dyspneic, with some improvement in her dyspnea, lung sounds are diminished with end expiratory wheezing, patient is on room air, vital signs are stable, she has had no fever or chills, no significant cough or phlegm production, she is complaining of right-sided pain in the chest, which is thought to be musculoskeletal in nature because it is exacerbated by coughing and movement. She is receiving IV morphine for pain control, remains on IV steroids which were tapered to 40 mg every 8 hours, Zithromax and nebulized bronchodilators. The patient is seen today 11/22/2019 in follow-up in the observation unit. She is comfortable at rest and maintaining good O2 saturations in the 90s on room air. She does get dyspneic with minimal exertion. Still with some bronchospasm and wheezing at times. Continued on IV Solu-Medrol and bronchodilators. Empiric antibiotics in the form of azithromycin. Will increase her activity as tolerated. Evaluate for possible home oxygen. Objective - Vital Signs Vital signs: Vital Signs Temp 98.2 F 11/22/19 07:48 Pulse 71 11/22/19 07:48 Resp 18 11/22/19 07:48 BP 166/72 11/22/19 07:48 Pulse Ox 96 11/22/19 07:48 Intake & Output 11/21/19 11/22/19 11/22/19 18:59 06:59 18:59 Other: Voiding Method Toilet Toilet Toilet Bedside Commode Bedside Commode Bedside Commode # Voids 1 - Exam GENERAL EXAM: Alert, pleasant, 68-year-old white female, on room air, comfortable in no apparent distress. HEAD: Normocephalic/atraumatic. EYES: Normal reaction of pupils, equal size. Conjunctiva pink, sclera white. NOSE: Clear with pink turbinates. THROAT: No erythema or exudates. NECK: No masses, no JVD, no thyroid enlargement, no adenopathy. CHEST: No chest wall deformity. Symmetrical expansion. LUNGS: Diminished air entry with expiratory wheezes CVS: Regular rate and rhythm, normal S1 and S2, no gallops, no murmurs, no rubs ABDOMEN: Soft, nontender. No hepatosplenomegaly, normal bowel sounds, no guarding or rigidity. EXTREMITIES: No clubbing, no edema, no cyanosis, 2+ pulses and upper and lower extremities. MUSCULOSKELETAL: Muscle strength and tone normal. SPINE: No scoliosis or deformity SKIN: No rashes CENTRAL NERVOUS SYSTEM: No focal deficits, tone is normal in all 4 extremities. PSYCHIATRIC: Alert and oriented -3. Appropriate affect. Intact judgment and insight. - Labs CBC & Chem 7: 11/18/19 14:44 11/18/19 14:44 Labs: Abnormal Lab Results - Last 24 Hours (Table) 11/21/19 11/21/19 11/21/19 Range/Units 11:44 16:36 20:14 POC Glucose (mg/dL) 246 H 151 H 224 H (75-99) mg/dL 11/22/19 Range/Units 07:04 POC Glucose (mg/dL) 137 H (75-99) mg/dL Assessment and Plan Assessment: 1 acute COPD exacerbation with secondary shortness of breath. The patient also has symptoms of bronchitis. She is producing yellowish sputum. The pain has been mainly on the right side of the chest. This is probably related to her bronchitis. Chest x-ray is not showing any acute consolidation or pneumonia. She is currently on examination bronchodilators and systemic steroids. She is also covered with antibiotics. 2 chronic smoking, smoked 1 pack of cigarettes a day 3 chronic dyspnea secondary to above 4 difficulty with mobility and gait and the patient wound walks up with help of a walker, has chronic neuropathy 5 axillary atrial fibrillation current rhythm is sinus 6 history of atypical chest pain and the cardiac workup has been negative including previous stress test, previous cardiac catheterization in 2013 and the most recent echocardiogram is still within normal limits. 7 hiatal hernia 8 fibromyalgia 9 dementia 10 acid reflux 11 hypertension 12 hyperlipidemia 13 IBS 14 peripheral neuropathy 15 history of CVA/TIA Plan: The patient was seen and evaluated by Dr. Berg. She is improved but not quite back to her baseline. We'll continue with the current treatment plan. Probable discharge in the a.m. Increase her activity as tolerated. Evaluate for home oxygen. She is again educated regarding the importance of complete smoking cessation. We'll continue to follow I, the cosigning physician, performed a history & physical examination of the patient. Lungs sounds with bilateral end expiratory wheeze, diminished. Maintaining good O2 saturations in the 90s on room air. I discussed the assessment and plan of care with my nurse practitioner, Heidy Moraes. I attest to the above note as dictated by her.
[2019-11-22 11:34] LABS: Glucose,Whole Blood 172 mg/dL (75-99)
[2019-11-22] MEDS: AZITHROMYCIN 500 MG TAB PO SCH (11:49)
--- NOTE | 2019-11-22 13:11 | P.PN ---
Subjective This is a 68-year-old female patient of Dr. Vo with past medical history of paroxysmal atrial fibrillation on eliquis, history of CVA, dementia, fibromyalgia, osteoarthritis, hypertension hypertensive cardiovascular disease, hyperlipidemia, hiatal hernia, osteoporosis, neuropathy, headaches, glaucoma, COPD and chronic smoker. Patient gives history of increasing difficulty breathing with pain in the right side of her chest that was excruciating. She complains of cough with shortness of breath. She was seen by her PCP and due to chest pain was instructed to come into the hospital. Patient is currently smoking 1 pack per day and has been smoking since age 15. Patient presented to [facility] emergency center for evaluation. She was found to be afebrile, blood pressure 147/50, heart rate 68, pulse ox 98% on 2 L nasal cannula. Chest x-ray showed no acute cardio pulmonary process. CBC unremarkable, d-dimer 0.45, sodium 142, potassium 4.2, creatinine 0.94, cardiac enzymes negative negative x3 and proBNP 363. EKG was a sinus tachycardia. Patient was started on DuoNeb treatments, IV Solu-Medrol and p laced on the observation unit. Cardiology consult was requested. Patient apparently has seen Dr. Oh in the past but has been a long time. Consult placed with Dr. Berg. 11/20: Patient has been seen by Dr. Berg with plan to continue current medications, Solu-Medrol will remain at 60 mg every 6 hours. Patient is also been seen by cardiology and acute coronary syndrome has been ruled out and patient to follow-up with Dr. Christianson as an outpatient. Patient states that she is feeling worse today. From coughing she is also experiencing pain up into her neck and head. Continues to feel short of breath with cough. 11/21: Patient has been afebrile, heart rate 55, blood pressure 150/63, pulse ox 94% on room air. Blood sugars running between 153 and 169. Patient is currently on Solu-Medrol 60 mg IV every 6 hours which will be decreased to 40 mg every 8 hours. Patient continues to complain of neck pain, chest pain and tenderness secondary to coughing. Patient is followed by Dr. Berg. 11/22: Patient continues to shortness of breath especially with talking. Patient states that she is feeling better however as the day progresses she will progressively get worse. Patient was seen by Dr. Berg today who also felt that she may need one more day in the hospital. Discussed with patient the importance of not smoking and being and a smoke-free environment. Discussed with patient the importance of utilizing her nebulizers as needed at home. Patient has been afebrile, continues to have shortness of breath with activity. Patient does complain of some chest pain and tenderness especially with coughing. Blood sugars are continuing to run a high. Blood pressure 166/72, pulse rate 71, pulse ox 96% on room air. Review of Systems Constitutional: Reports fatigue, Reports weakness, Denies chills, Denies poor appetite Eyes: denies blurred vision Ears, nose, mouth and throat: Denies dysphagia, Denies headache, Denies nasal congestion, Denies nasal discharge, Denies sore throat, Denies vertigo, reports neck pain Cardiovascular: Reports chest pain, Reports shortness of breath, Denies lightheadedness, Denies syncope Respiratory: Reports cough, Reports cough with sputum, Reports dyspnea, Reports respiratory infections, Denies excessive sputum, Denies hemoptysis, Denies home oxygen Gastrointestinal: Denies abdominal pain, Denies diarrhea, Denies nausea, Denies vomiting Genitourinary: Reports flank pain, denies dysuria Musculoskeletal: Denies frequent falls, Denies gait dysfunction, Denies myalgias Integumentary: Reports wounds (Right lower leg), Denies pruritus, Denies rash Neurological: Denies change in mentation, Denies confusion, Denies numbness, Denies weakness Psychiatric: Denies anxiety, Denies depression Endocrine: Denies fatigue, Denies weight change Objective - Vital Signs Vital signs: Vital Signs Temp 98.2 F 11/22/19 07:48 Pulse 71 11/22/19 07:48 Resp 18 11/22/19 07:48 BP 166/72 11/22/19 07:48 Pulse Ox 96 11/22/19 07:48 Intake & Output 11/21/19 11/22/19 11/22/19 18:59 06:59 18:59 Other: Voiding Method Toilet Toilet Toilet Bedside Commode Bedside Commode Bedside Commode # Voids 1 - Exam General Appearance: Alert, cooperative, minimal distress with conversation, appears stated age. Neck HEENT: Supple, no lymphadenopathy, no thyroid enlargement, no carotid bruits. Lungs: Bilateral wheezes Chest Wall: Chest wall normal expansion with deep inspiration no tenderness and no deformity was found on exam, no costochondral pain or discomfort. Heart: Regular rate and rhythm, S1, S2 normal, no murmur, rub or gallop. Back: Symmetric, no curvature, ROM normal, no CVA tenderness. Abdomen: Soft, non-tender, no rebound or rigidity, no hepatosplenomegaly. Extremities: Extremities normal, atraumatic, no cyanosis or edema. Pulses: 2+ and symmetric. Skin: Skin color, texture, tugor normal, no rashes or lesions. Neurologic: Alert oriented x3 cranial nerves II through XII intact, no motor deficit, no abnormal balance or gait - Labs CBC & Chem 7: 11/18/19 14:44 11/18/19 14:44 Labs: Abnormal Lab Results - Last 24 Hours (Table) 11/21/19 11/21/19 11/22/19 Range/Units 16:36 20:14 07:04 POC Glucose (mg/dL) 151 H 224 H 137 H (75-99) mg/dL 11/22/19 Range/Units 11:32 POC Glucose (mg/dL) 172 H (75-99) mg/dL Assessment and Plan Plan: 1. Chest pain right-sided with right flank pain, musculoskeletal type pain. Cardiology consult appreciated. Patient started on Lopressor 25 mg twice daily and to follow-up with Dr. Christianson on discharge. 2. Paroxysmal atrial fibrillation. Continue eliquis, Lopressor. 3. History of stroke with no lateralized symptoms, stable. Continue eliquis 5 mg twice daily, aspirin reduced 81 mg daily, pravastatin 80 mg at bedtime. 4. COPD with acute exacerbation with tracheobronchitis. Patient started on DuoNeb treatments 4 times daily, Solu-Medrol decreased to 40 mg IV every 8 hours, azithromycin 500 mg daily, pulmonary consult appreciated. Add budesonide to bridging 5. Hypertension, hypertensive cardio vascular disease. Continue Norvasc 5 mg daily, Lopressor. 6. Hyperlipidemia. Continue pravastatin. She states she is unable to tolerate atorvastatin. 7. Dementia, stable 8. Tobacco use and dependence. Smoking cessation. Nicotine patch ordered. 9. Fibromyalgia, stable. 10. Depression, recurrent. Continue Pristiq 50 mg daily, Seroquel 30 mg at bedtime 11. Chemical induced hyperglycemia. Obtain hemoglobin A1c, continue to monitor blood sugars 12. GI prophylaxis. Pepcid. 13. DVT prophylaxis. Eliquis. Discharge plan: Most likely return home possibly tomorrow Impression and plan of care have been directed as dictated by the signing physician. Lotus Ferrer nurse practitioner acting as scribe for signing physician.
[2019-11-22 16:35] LABS: Glucose,Whole Blood 153 mg/dL (75-99)
[2019-11-22] MEDS: BUDESONIDE 0.5 MG/2 ML NEBU INHALATION SCH (19:04)
[2019-11-22 19:25] LABS: Hemoglobin A1C 5.4 % (4.0-6.0)
[2019-11-22] MEDS: QUEtiapine 50 MG TAB PO SCH (20:24)
[2019-11-22] MEDS: DESVENLAFAXINE SUCCINATE 50 MG TAB.ER.24H PO SCH (20:24)
[2019-11-22] MEDS: PRAVASTATIN SODIUM 80 MG TAB PO SCH (20:24)
[2019-11-22] MEDS: MORPHINE SULFATE 2 MG/ML SYRINGE IVP PRN (20:25)
[2019-11-22 20:27] LABS: Glucose,Whole Blood 219 mg/dL (75-99)
[2019-11-22 23:25] VITALS: RESP 18
[2019-11-23 07:07] LABS: Glucose,Whole Blood 145 mg/dL (75-99)
[2019-11-23] MEDS: BUDESONIDE 0.5 MG/2 ML NEBU INHALATION SCH ×2 (08:06→19:17)
[2019-11-23] MEDS: IPRATROPIUM-ALBUTEROL 3 ML NEB INHALATION SCH ×4 (08:06→19:16)
[2019-11-23] MEDS: NICOTINE 21MG/24HR PATCH TRANSDERM SCH (08:24)
[2019-11-23] MEDS: INSULIN ASPART (NovoLOG) 100 UNIT/ML VIAL SQ SCH ×4 (08:24→21:13)
[2019-11-23] MEDS: methylPREDNISolone SOD SUCCI 40 MG/ML 1 ML VIAL IV SCH ×3 (08:24→23:35)
[2019-11-23] MEDS: FAMOTIDINE 20 MG TAB PO SCH (08:25)
[2019-11-23] MEDS: METOPROLOL TARTRATE 25 MG TAB PO SCH ×2 (08:25→20:26)
[2019-11-23] MEDS: APIXABAN 5 MG TAB PO SCH ×2 (08:25→20:26)
[2019-11-23] MEDS: guaiFENesin-DM 600/30MG 1 EACH TAB.ER.12H PO SCH ×2 (08:25→20:27)
[2019-11-23] MEDS: amLODIPine 5 MG TAB PO SCH (08:25)
[2019-11-23] MEDS: MORPHINE SULFATE 2 MG/ML SYRINGE IVP PRN ×2 (08:33→20:32)
[2019-11-23] MEDS ORDERED: LEVOFLOXACIN 500 MG TAB PO SCH (10:30)
[2019-11-23] MEDS: KETOROLAC 30 MG/ML 1 ML VIAL IVP SCH ×2 (11:07→20:26)
[2019-11-23 11:47] LABS: Glucose,Whole Blood 160 mg/dL (75-99)
[2019-11-23] MEDS: AZITHROMYCIN 500 MG TAB PO SCH (12:08)
--- NOTE | 2019-11-23 13:13 | P.PN ---
Subjective Progress Note Date: 11/23/19 This is a 68-year-old female patient of Dr. Vo with past medical history of paroxysmal atrial fibrillation on eliquis, history of CVA, dementia, fibromyalgia, osteoarthritis, hypertension hypertensive cardiovascular disease, hyperlipidemia, hiatal hernia, osteoporosis, neuropathy, headaches, glaucoma, COPD and chronic smoker. Patient gives history of increasing difficulty breathing with pain in the right side of her chest that was excruciating. She complains of cough with shortness of breath. She was seen by her PCP and due to chest pain was instructed to come into the hospital. Patient is currently smoking 1 pack per day and has been smoking since age 15. Patient presented to [facility] emergency center for evaluation. She was found to be afebrile, blood pressure 147/50, heart rate 68, pulse ox 98% on 2 L nasal cannula. Chest x-ray showed no acute cardio pulmonary process. CBC unremarkable, d-dimer 0.45, sodium 142, potassium 4.2, creatinine 0.94, cardiac enzymes negative negative x3 and proBNP 363. EKG was a sinus tachycardia. Patient was started on DuoNeb treatments, IV Solu-Medrol and placed on the observation unit. Cardiology consult was requested. Patient apparently has seen Dr. Oh in the past but has been a long time. Consult placed with Dr. Berg. 11/20: Patient has been seen by Dr. Berg with plan to continue current medica tions, Solu-Medrol will remain at 60 mg every 6 hours. Patient is also been seen by cardiology and acute coronary syndrome has been ruled out and patient to follow-up with Dr. Christianson as an outpatient. Patient states that she is feeling worse today. From coughing she is also experiencing pain up into her neck and head. Continues to feel short of breath with cough. 11/21: Patient has been afebrile, heart rate 55, blood pressure 150/63, pulse ox 94% on room air. Blood sugars running between 153 and 169. Patient is currently on Solu-Medrol 60 mg IV every 6 hours which will be decreased to 40 mg every 8 hours. Patient continues to complain of neck pain, chest pain and tenderness secondary to coughing. Patient is followed by Dr. Berg. 11/22: Patient continues to shortness of breath especially with talking. Patient states that she is feeling better however as the day progresses she will progressively get worse. Patient was seen by Dr. Berg today who also felt that she may need one more day in the hospital. Discussed with patient the importance of not smoking and being and a smoke-free environment. Discussed with patient the importance of utilizing her nebulizers as needed at home. Patient has been afebrile, continues to have shortness of breath with activity. Patient does complain of some chest pain and tenderness especially with coughing. Blood sugars are continuing to run a high. Blood pressure 166/72, pulse rate 71, pulse ox 96% on room air. 11/23: Patient states that her difficulty breathing has improved however she is having increased chest wall discomfort. The pain is located intercostal. Patient has been taking morphine for pain control which has not helped. Patient does not feel like she is ready to go home. Patient does require less O2 today compared to yesterday. Patient is agreeable to utilize Toradol to help with pain control. Patient will enjoy in the cantu with O2 to see if she qualifies for oxygen at home. She has been afebrile. Blood pressure 141/37, heart rate 65, respirations 18 nonlabored, pulse ox 96% room air. Review of Systems Constitutional: Reports fatigue, Reports weakness, Denies chills, Denies poor appetite Eyes: denies blurred vision Ears, nose, mouth and throat: Denies dysphagia, Denies headache, Denies nasal congestion, Denies nasal discharge, Denies sore throat, Denies vertigo, reports neck pain Cardiovascular: Reports chest pain, Reports shortness of breath, Denies lightheadedness, Denies syncope Respiratory: Reports cough, Reports cough with sputum, Reports dyspnea, Reports respiratory infections, Denies excessive sputum, Denies hemoptysis, Denies home oxygen Gastrointestinal: Denies abdominal pain, Denies diarrhea, Denies nausea, Denies vomiting Genitourinary: Reports flank pain, denies dysuria Musculoskeletal: Denies frequent falls, Denies gait dysfunction, Denies myalgias Integumentary: Reports wounds (Right lower leg), Denies pruritus, Denies rash Neurological: Denies change in mentation, Denies confusion, Denies numbness, Denies weakness Psychiatric: Denies anxiety, Denies depression Endocrine: Denies fatigue, Denies weight change Objective - Vital Signs Vital signs: Vital Signs Temp 98.2 F 11/23/19 07:53 Pulse 68 11/23/19 11:24 Resp 18 11/23/19 07:53 BP 141/87 11/23/19 07:53 Pulse Ox 97 11/23/19 07:53 Intake & Output 11/22/19 11/23/19 11/23/19 18:59 06:59 18:59 Other: Voiding Method Toilet Toilet Toilet Bedside Commode Bedside Commode Bedside Commode # Bowel Movements 1 - Exam General Appearance: Alert, cooperative, minimal distress with conversation, appears stated age. Neck HEENT: Supple, no lymphadenopathy, no thyroid enlargement, no carotid bruits. Lungs: Bilateral wheezes improved Chest Wall: Chest wall normal expansion with deep inspiration positive tenderness and no deformity was found on exam, positive costochondral pain or discomfort. Heart: Regular rate and rhythm, S1, S2 normal, no murmur, rub or gallop. Back: Symmetric, no curvature, ROM normal, no CVA tenderness. Abdomen: Soft, non-tender, no rebound or rigidity, no hepatosplenomegaly. Extremities: Extremities normal, atraumatic, no cyanosis or edema. Pulses: 2+ and symmetric. Skin: Skin color, texture, tugor normal, no rashes or lesions. Neurologic: Alert oriented x3 cranial nerves II through XII intact, no motor deficit, no abnormal balance or gait - Labs CBC & Chem 7: 11/18/19 14:44 11/18/19 14:44 Labs: Abnormal Lab Results - Last 24 Hours (Table) 11/22/19 11/22/19 11/23/19 Range/Units 16:33 20:20 07:05 POC Glucose (mg/dL) 153 H 219 H 145 H (75-99) mg/dL 11/23/19 Range/Units 11:46 POC Glucose (mg/dL) 160 H (75-99) mg/dL Assessment and Plan Plan: 1. Chest pain right-sided with right flank pain, musculoskeletal type pain. Cardiology consult appreciated. Patient started on Lopressor 25 mg twice daily and to follow-up with Dr. Christianson on discharge. Continue with morphine, start Toradol 30 mg every 6 hours 2. Paroxysmal atrial fibrillation. Continue eliquis, Lopressor. 3. History of stroke with no lateralized symptoms, stable. Continue eliquis 5 mg twice daily, aspirin reduced 81 mg daily, pravastatin 80 mg at bedtime. 4. COPD with acute exacerbation with tracheobronchitis. Patient started on DuoNeb treatments 4 times daily, Solu-Medrol decreased to 40 mg IV every 8 hours, azithromycin 500 mg daily, pulmonary consult appreciated. Add budesonide to bridging 5. Hypertension, hypertensive cardio vascular disease. Continue Norvasc 5 mg daily, Lopressor. 6. Hyperlipidemia. Continue pravastatin. She states she is unable to tolerate atorvastatin. 7. Dementia, stable 8. Tobacco use and dependence. Smoking cessation. Nicotine patch ordered. 9. Fibromyalgia, stable. 10. Depression, recurrent. Continue Pristiq 50 mg daily, Seroquel 30 mg at bedtime 11. Chemical induced hyperglycemia. Obtain hemoglobin A1c, continue to monitor blood sugars 12. GI prophylaxis. Pepcid. 13. DVT prophylaxis. Eliquis. Discharge plan: Home possibly tomorrow Impression and plan of care have been directed as dictated by the signing physician. Lotus Ferrer nurse practitioner acting as scribe for signing physician.
--- NOTE | 2019-11-23 13:36 | P.PN ---
Subjective Progress Note Date: 11/23/19 Principal diagnosis: Acute exacerbation of chronic obstructive pulmonary disease. A 68-year-old female patient, known history of COPD along with previous history of CVA and nonocclusive mild coronary artery disease based on a cardiac catheterization 2012 along with history of paroxysmal atrial fibrillation and hypertension and hyperlipidemia and chronic cigarette smoker. The patient was evaluated by our service back in 2016 for an acute COPD exacerbation. She came in yesterday to the emergency department complaining of sharp pain across her right lung radiating to the back. This was associated with breathing. She was coughing out some yellowish sputum that started around 24 hours prior to her hospital admission. No fever or chills. No hemoptysis. She had symptoms of cold and flu since 2018 and things have gotten worse since. She has been utilizing albuterol nebulized treatments at home. She is a 1 pack-a-day cigarette smoker. She has no home oxygen. In the emergency, the EKG showed atrial tachycardia with some nonspecific ST segment changes inferiorly and the rhythm was essentially sinus. The CBC was unremarkable. The d-dimer was 0.45. Electrodes are all within normal limits. The proBNP level was 363. 3 sets of cardiac exam is a been negative. The patient had an echocardiogram from July 2019 showing a preserved LV function with an EF of around 55-60%. The patient also had a CAT scan of the chest that was done in July 2019 showing emphysema without any significant mediastinal abnormalities or lung lesions or tumors. She is currently admitted for observation. No nausea. No vomiting. No altered mentation. No palpitations. No swelling in lower extre On 11/20/2019 there is limited improvement. The patient is having some soreness in her throat and she feels that her throat and glands are somewhat enlarged with some earaches and soreness in her chest in addition to cough congestion chest tightness or wheezing her presentation still similar to yesterday. Sr. on Zithromax. She remains on IV Solu-Medrol. She remains on bronchodilators. On 11/21/2019 patient seen in follow-up in the observation unit, still dyspneic, with some improvement in her dyspnea, lung sounds are diminished with end expiratory wheezing, patient is on room air, vital signs are stable, she has had no fever or chills, no significant cough or phlegm production, she is complaining of right-sided pain in the chest, which is thought to be musculoskeletal in nature because it is exacerbated by coughing and movement. She is receiving IV morphine for pain control, remains on IV steroids which were tapered to 40 mg every 8 hours, Zithromax and nebulized bronchodilators. The patient is seen today 11/22/2019 in follow-up in the observation unit. She is comfortable at rest and maintaining good O2 saturations in the 90s on room air. She does get dyspneic with minimal exertion. Still with some bronchospasm and wheezing at times. Continued on IV Solu-Medrol and bronchodilators. Empiric antibiotics in the form of azithromycin. Will increase her activity as tolerated. Evaluate for possible home oxygen. Patient seen today 11/23/2019 in follow-up on the observation unit. She is resting comfortably in bed. On room air. No worsening shortness of breath, cough or congestion. Still some atypical chest discomfort from coughing. Some atypical chest discomfort. He is continued on bronchodilators and IV Solu-Medro l. Antibiotics in the form of azithromycin. Objective - Vital Signs Vital signs: Vital Signs Temp 98.2 F 11/23/19 07:53 Pulse 68 11/23/19 11:24 Resp 18 11/23/19 07:53 BP 141/87 11/23/19 07:53 Pulse Ox 97 11/23/19 07:53 Intake & Output 11/22/19 11/23/19 11/23/19 18:59 06:59 18:59 Other: Voiding Method Toilet Toilet Toilet Bedside Commode Bedside Commode Bedside Commode # Bowel Movements 1 - Exam GENERAL EXAM: Alert, pleasant, 68-year-old white female, on room air, comfortable in no apparent distress. HEAD: Normocephalic/atraumatic. EYES: Normal reaction of pupils, equal size. Conjunctiva pink, sclera white. NOSE: Clear with pink turbinates. THROAT: No erythema or exudates. NECK: No masses, no JVD, no thyroid enlargement, no adenopathy. CHEST: No chest wall deformity. Symmetrical expansion. LUNGS: Diminished air entry with no wheeze, rhonchi or crackles. Diminished CVS: Regular rate and rhythm, normal S1 and S2, no gallops, no murmurs, no rubs ABDOMEN: Soft, nontender. No hepatosplenomegaly, normal bowel sounds, no guarding or rigidity. EXTREMITIES: No clubbing, no edema, no cyanosis, 2+ pulses and upper and lower extremities. MUSCULOSKELETAL: Muscle strength and tone normal. SPINE: No scoliosis or deformity SKIN: No rashes CENTRAL NERVOUS SYSTEM: No focal deficits, tone is normal in all 4 extremities. PSYCHIATRIC: Alert and oriented -3. Appropriate affect. Intact judgment and insight. - Labs CBC & Chem 7: 11/18/19 14:44 11/18/19 14:44 Labs: Abnormal Lab Results - Last 24 Hours (Table) 11/22/19 11/22/19 11/23/19 Range/Units 16:33 20:20 07:05 POC Glucose (mg/dL) 153 H 219 H 145 H (75-99) mg/dL 11/23/19 Range/Units 11:46 POC Glucose (mg/dL) 160 H (75-99) mg/dL Assessment and Plan Assessment: 1 acute COPD exacerbation with secondary shortness of breath. The patient also has symptoms of bronchitis. She is producing yellowish sputum. The pain has been mainly on the right side of the chest. This is probably related to her bronchitis. Chest x-ray is not showing any acute consolidation or pneumonia. She is currently on examination bronchodilators and systemic steroids. She is also covered with antibiotics. 2 chronic smoking, smoked 1 pack of cigarettes a day 3 chronic dyspnea secondary to above 4 difficulty with mobility and gait and the patient wound walks up with help of a walker, has chronic neuropathy 5 axillary atrial fibrillation current rhythm is sinus 6 history of atypical chest pain and the cardiac workup has been negative including previous stress test, previous cardiac catheterization in 2013 and the most recent echocardiogram is still within normal limits. 7 hiatal hernia 8 fibromyalgia 9 dementia 10 acid reflux 11 hypertension 12 hyperlipidemia 13 IBS 14 peripheral neuropathy 15 history of CVA/TIA Plan: The patient was seen and evaluated by Dr. Berg. She is improved. We will discontinue the IV Solu-Medrol. Start a prednisone burst and taper 40 mg for 4 days. We will see the patient on as-needed basis. I, the cosigning physician, performed a history & physical examination of the patient. Lungs sounds clear,, diminished. Maintaining good O2 saturations in the 90s on room air. I discussed the assessment and plan of care with my nurse practitioner, Heidy Moraes. I attest to the above note as dictated by her.
[2019-11-23] MEDS: NYSTATIN 100,000 UNIT/ML SUSP 500,000 UNIT/5 ML CUP PO SCH ×3 (16:02→21:28)
[2019-11-23 16:49] LABS: Glucose,Whole Blood 137 mg/dL (75-99)
[2019-11-23 20:07] LABS: Glucose,Whole Blood 192 mg/dL (75-99)
[2019-11-23] MEDS: QUEtiapine 50 MG TAB PO SCH (20:27)
[2019-11-23] MEDS: PRAVASTATIN SODIUM 80 MG TAB PO SCH (20:28)
[2019-11-23] MEDS: DESVENLAFAXINE SUCCINATE 50 MG TAB.ER.24H PO SCH (20:28)
[2019-11-24] MEDS: KETOROLAC 30 MG/ML 1 ML VIAL IVP SCH ×3 (00:29→13:33)
[2019-11-24] MEDS: MORPHINE SULFATE 2 MG/ML SYRINGE IVP PRN ×2 (00:30→08:14)
[2019-11-24 06:36] LABS: Glucose,Whole Blood 122 mg/dL (75-99)
[2019-11-24] MEDS: BUDESONIDE 0.5 MG/2 ML NEBU INHALATION SCH (07:27)
[2019-11-24] MEDS: IPRATROPIUM-ALBUTEROL 3 ML NEB INHALATION SCH ×2 (07:27→11:00)
[2019-11-24 07:41] VITALS: BP 164/78; TEMP 98.1
[2019-11-24] MEDS: INSULIN ASPART (NovoLOG) 100 UNIT/ML VIAL SQ SCH ×2 (08:04→11:51)
[2019-11-24] MEDS: APIXABAN 5 MG TAB PO SCH (08:07)
[2019-11-24] MEDS: NYSTATIN 100,000 UNIT/ML SUSP 500,000 UNIT/5 ML CUP PO SCH ×2 (08:07→14:39)
[2019-11-24] MEDS: methylPREDNISolone SOD SUCCI 40 MG/ML 1 ML VIAL IV SCH (08:07)
[2019-11-24] MEDS: NICOTINE 21MG/24HR PATCH TRANSDERM SCH (08:07)
[2019-11-24] MEDS: amLODIPine 5 MG TAB PO SCH (08:07)
[2019-11-24] MEDS: METOPROLOL TARTRATE 25 MG TAB PO SCH (08:07)
[2019-11-24] MEDS: guaiFENesin-DM 600/30MG 1 EACH TAB.ER.12H PO SCH (08:08)
[2019-11-24] MEDS: FAMOTIDINE 20 MG TAB PO SCH (08:08)
[2019-11-24 09:12] VITALS: PULSE 57
[2019-11-24 11:41] LABS: Glucose,Whole Blood 116 mg/dL (75-99)
[2019-11-24] MEDS: AZITHROMYCIN 500 MG TAB PO SCH (13:31)
--- NOTE | 2019-11-25 08:15 | P.DS ---
Providers Date of admission: 11/20/19 15:27 Expected date of discharge: 11/24/19 Attending physician: Catrachito Waletr Consults: 11/18/19 15:51 Consult Physician Routine Consulting Provider: Rafael Chen Consult Reason/Comments: cp Do you want consulting provider notified?: Yes 11/19/19 12:46 Consult Physician Routine Consulting Provider: Chao Berg Consult Reason/Comments: copd exac, not seen Althea in awhile Do you want consulting provider notified?: Yes Primary care physician: Hi Vo MD Hospital Course: This is a 68-year-old female patient of Dr. Vo with past medical history of paroxysmal atrial fibrillation on eliquis, history of CVA, dementia, fibromyalgia, osteoarthritis, hypertension hypertensive cardiovascular disease, hyperlipidemia, hiatal hernia, osteoporosis, neuropathy, headaches, glaucoma, COPD and chronic smoker. Patient gives history of increasing difficulty breathing with pain in the right side of her chest that was excruciating. She complains of cough with shortness of breath. She was seen by her PCP and due to chest pain was instructed to come into the hospital. Patient is currently smoking 1 pack per day and has been smoking since age 15. Patient presented to [facility] emergency center for evaluation. She was found to be afebrile, blood pressure 147/50, heart rate 68, pulse ox 98% on 2 L nasal cannula. Chest x-ray showed no acute cardio pulmonary process. CBC unremarkable, d-dimer 0.45, sodium 142, potassium 4.2, creatinine 0.94, cardiac enzymes negative negative x3 and proBNP 363. EKG was a sinus tachycardia. Patient was started on DuoNeb treatments, IV Solu-Medrol and placed on the observation unit. Cardiology consult was requested. Patient apparently has seen Dr. Oh in the past but has been a long time. Consult placed with Dr. Berg. 11/20: Patient has been seen by Dr. Berg with plan to continue current medications, Solu-Medrol will remain at 60 mg every 6 hours. Patient is also been seen by cardiology and acute coronary syndrome has been ruled out and patient to follow-up with Dr. Christianson as an outpatient. Patient states that she is feeling worse today. From coughing she is also experiencing pain up into her neck and head. Continues to feel short of breath with cough. 11/21: Patient has been afebrile, heart rate 55, blood pressure 150/63, pulse ox 94% on room air. Blood sugars running between 153 and 169. Patient is currently on Solu-Medrol 60 mg IV every 6 hours which will be decreased to 40 mg every 8 hours. Patient continues to complain of neck pain, chest pain and tenderness secondary to coughing. Patient is followed by Dr. Berg. 11/22: Patient continues to shortness of breath especially with talking. Patient states that she is feeling better however as the day progresses she will progressively get worse. Patient was seen by Dr. Breg today who also felt that she may need one more day in the hospital. Discussed with patient the importance of not smoking and being and a smoke-free environment. Discussed with patient the importance of utilizing her nebulizers as needed at home. Patient has been afebrile, continues to have shortness of breath with activity. Patient does complain of some chest pain and tenderness especially with coughing. Blood sugars are continuing to run a high. Blood pressure 166/72, pulse rate 71, pulse ox 96% on room air. 11/23: Patient states that her difficulty breathing has improved however she is having increased chest wall discomfort. The pain is located intercostal. Patient has been taking morphine for pain control which has not helped. Patient does not feel like she is ready to go home. Patient does require less O2 today compared to yesterday. Patient is agreeable to utilize Toradol to help with pain control. Patient will enjoy in the cantu with O2 to see if she qualifies for oxygen at home. She has been afebrile. Blood pressure 141/37, heart rate 65, respirations 18 nonlabored, pulse ox 96% room air. 11/24: Patient has been afebrile, heart rate 68, blood pressure 164/78, pulse ox 98% on room air. Patient is continued to complain of chest wall musculoskeletal type pain. Celebrex will be added. Breathing status is overall improved and patient will be discharged home today in stable condition. Discharge diagnoses: 1. Chest pain right-sided with right flank pain, musculoskeletal type pain. 2. Paroxysmal atrial fibrillation. 3. History of stroke with no lateralized symptoms, stable. 4. COPD with acute exacerbation with tracheobronchitis. 5. Hypertension, hypertensive cardio vascular disease. 6. Hyperlipidemia. 7. Dementia, stable 8. Tobacco use and dependence. Smoking cessation. 9. Fibromyalgia, stable. 10. Depression, recurrent. 11. Chemical induced hyperglycemia. Discharge plan: Home with VNA Impression and plan of care have been directed as dictated by the signing physician. Keyla Holloway nurse practitioner acting as scribe for signing physician. Patient Condition at Discharge: Good Plan - Discharge Summary Discharge Rx Participant: No New Discharge Prescriptions: New Ipratropium-Albuterol Nebulize [Duoneb 0.5 mg-3 mg/3 ml Soln] 3 ml INHALATION RT-QID #120 ampul.neb Nicotine 21Mg/24Hr Patch [Habitrol] 1 patch TRANSDERM DAILY #30 patch Metoprolol Tartrate [Lopressor] 25 mg PO BID #60 tab guaiFENesin-DM 600/30MG [Mucinex Dm] 2 each PO Q12HR tab.er.12h Nystatin 100,000 Unit/ml Susp [Mycostatin Oral Susp] 500,000 unit PO QID #20 dose Famotidine [Pepcid] 20 mg PO DAILY #30 tab predniSONE 0 mg PO DIRECTED #30 tab Budesonide [Pulmicort] 0.5 mg INHALATION RT-BID #60 nebu Azithromycin [Zithromax] 500 mg PO Q24H #3 tab Celecoxib [CeleBREX] 200 mg PO DAILY #30 cap Continue Apixaban [Eliquis] 5 mg PO BID #60 tab amLODIPine [Norvasc] 5 mg PO DAILY #30 tab Pravastatin Sodium [Pravachol] 80 mg PO HS #30 tab Desvenlafaxine Succinate [Pristiq ER] 50 mg PO DAILY QUEtiapine [SEROquel] 25 - 50 mg PO HS Umeclidinium [place] [Incruse Ellipta] 1 puff INHALATION RT-DAILY Discharge Medication List Apixaban [Eliquis] 5 mg PO BID #60 tab 08/09/19 [Rx] Pravastatin Sodium [Pravachol] 80 mg PO HS #30 tab 08/09/19 [Rx] amLODIPine [Norvasc] 5 mg PO DAILY #30 tab 08/09/19 [Rx] Desvenlafaxine Succinate [Pristiq ER] 50 mg PO DAILY 11/18/19 [History] QUEtiapine [SEROquel] 25 - 50 mg PO HS 11/18/19 [History] Umeclidinium [place] [Incruse Ellipta] 1 puff INHALATION RT-DAILY 11/18/19 [History] Azithromycin [Zithromax] 500 mg PO Q24H #3 tab 11/24/19 [Rx] Budesonide [Pulmicort] 0.5 mg INHALATION RT-BID #60 nebu 11/24/19 [Rx] Famotidine [Pepcid] 20 mg PO DAILY #30 tab 11/24/19 [Rx] Ipratropium-Albuterol Nebulize [Duoneb 0.5 mg-3 mg/3 ml Soln] 3 ml INHALATION RT-QID #120 ampul.neb 11/24/19 [Rx] Metoprolol Tartrate [Lopressor] 25 mg PO BID #60 tab 11/24/19 [Rx] Nicotine 21Mg/24Hr Patch [Habitrol] 1 patch TRANSDERM DAILY #30 patch 11/24/19 [Rx] Nystatin 100,000 Unit/ml Susp [Mycostatin Oral Susp] 500,000 unit PO QID #20 dose 11/24/19 [Rx] guaiFENesin-DM 600/30MG [Mucinex Dm] 2 each PO Q12HR tab.er.12h 11/24/19 [Rx] predniSONE 0 mg PO DIRECTED #30 tab 11/24/19 [Rx] Celecoxib [CeleBREX] 200 mg PO DAILY #30 cap 11/25/19 [Rx] Follow up Appointment(s)/Referral(s): Hi Vo MD [Primary Care Provider] - 1 Week [facility]NA Visiting Nurse, [NON-STAFF] - 1-2 Days Discharge Disposition: HOME WITH HOME HEALTH SERVICES
== END 2019-11-24 14:45 | disposition home health service (06) | DRG 191 ==
LOC: EC 14:10 → 1SOBS 15:51 → OBSVTOIN 11-20 15:27
PROVIDERS: ADMIT Internal Medicine; ATTEND Internal Medicine
DX: J44.1 Chronic obstructive pulmonary disease with (acute) exacerbation (principal); I47.1 Supraventricular tachycardia; F03.90 Unspecified dementia, unspecified severity, without behavioral disturbance, psychotic disturbance, mood disturbance, and anxiety; I11.9 Hypertensive heart disease without heart failure; E78.5 Hyperlipidemia, unspecified; F17.210 Nicotine dependence, cigarettes, uncomplicated; F32.9 Major depressive disorder, single episode, unspecified; F41.9 Anxiety disorder, unspecified; G62.9 Polyneuropathy, unspecified; I25.10 Atherosclerotic heart disease of native coronary artery without angina pectoris; I48.0 Paroxysmal atrial fibrillation; K21.9 Gastro-esophageal reflux disease without esophagitis; K44.9 Diaphragmatic hernia without obstruction or gangrene; K58.9 Irritable bowel syndrome, unspecified; M79.7 Fibromyalgia; M81.0 Age-related osteoporosis without current pathological fracture; G89.29 Other chronic pain; M19.90 Unspecified osteoarthritis, unspecified site; M54.2 Cervicalgia; M54.9 Dorsalgia, unspecified; R06.03 Acute respiratory distress; R26.9 Unspecified abnormalities of gait and mobility; R73.9 Hyperglycemia, unspecified; H40.9 Unspecified glaucoma; R07.89 Other chest pain; H93.13 Tinnitus, bilateral; Z79.01 Long term (current) use of anticoagulants; Z79.899 Other long term (current) drug therapy; Z86.73 Personal history of transient ischemic attack (TIA), and cerebral infarction without residual deficits; Z90.710 Acquired absence of both cervix and uterus; Z88.0 Allergy status to penicillin; Z88.2 Allergy status to sulfonamides; Z88.8 Allergy status to other drugs, medicaments and biological substances; Z88.1 Allergy status to other antibiotic agents; Z91.040 Latex allergy status; Z90.49 Acquired absence of other specified parts of digestive tract; Z98.51 Tubal ligation status; Z87.440 Personal history of urinary (tract) infections; Z82.3 Family history of stroke; Z82.49 Family history of ischemic heart disease and other diseases of the circulatory system
CPT/HCPCS: 36415; 71046; 80053; 81001; 83036; 83690; 83735; 83880; 84484; 85025; 85379; 85610; 85730; 93005; 94640; 94760; 96361; 96374; 96375; 96376; 99285

== ENCOUNTER → 2020-03-19 | Outpatient (CLI) | payer MEDICARE, OTHER ==
--- NOTE | 2020-03-22 08:00 | P.PAINCN ---
History of Present Illness - Reason for Consult Consult date: 03/19/20 - History of Present Illness THIS ENCOUNTER WAS PERFORMED A TELEMEDICINE VISIT VIA SECURE TWO-WAY VIDEO AND AUDIO TO MINIMIZE RISK AND TRANSMISSION OF COVID-19. This is a 69-year-old patient referred by Dr. Vo with a chief complaint of headaches. She has had these headaches for several years, they have worsened over the last 3-4 months. She denies any inciting event, although she has had a few falls, without loss of consciousness, however she does not recall if she hit her head. Of note, she does have dementia. Headaches begin at base of skull and shoot across to jain and behind eyes; typically one side or the other, right side is worse. Pain is rated as 5-10/10, described as a pressure sensation, with occassioanl aura in the form of flashing lights, associated with photo and phonophobia, blurry vision. She also has pain/pressure in ears and is pending ENT evaluation. She endorses numbness in b/l arms R>L in non-deratomal distribution, also endorses subjective weakness in R>L arm. Headaches can last for days to weeks and she can be headache free for 1-2 weeks. She required a hospital admission in July 2019 due to severe headache. Pain is improved with ice and medications. Patient has been taking medications from primary care physician including ibuprofen 600mg with some relief. In the past, she has taken extra strength tylenol with no benefit. Patient denies adverse drug effects from medications. In addition to above, 13-point review of systems is also negative for chest pain, shortness of breath, changes in vision, changes in hearing, new onset weakness, abdominal pain, diarrhea, extreme fatigue, malaise, fever, skin changes, homicidal or suicidal ideation, or bowel incontinence. She endorses chronic bladder incontinence and seasonal allergies. Physical exam : Constitutional: Healthy appearing, well developed, alert, in no acute distress, smoking cigarette during televisit. Psychiatric: Judgement and insight intact, alert and oriented Mood and Affect: mood normal, affect appropriate Head and Face: Inspection: normocephalic atraumatic, extraocular movement intact Respiratory: Breathing non-labored nondyspneic Skin: Head and Neck: skin with no lesions of rash MSK: patient reports tenderness to palpation along right cervical paraspinals and trapezius muscles. Full ROM of cervical spine but patient endorses pain during ROM. Imaging: MRI cervical spine done on 11/06/2019 shows scattered facet hypertrophy, mild degenerative disc disease,moderate spinal canal stenosis at C5-6, congenital cord narrowing and multilevel neuroforaminal narrowing. Assessment: 1. Occipital neuralgia 2. cervical spondylosis 3. nicotine dependance 4. dementia Plan: 1. Explanation: Diagnoses, prognoses, and multiple treatment options including but not limited interventional therapies, medication management were discussed with the patient and all questions were answered to the patient's satisfaction. 2. Investigations: MRI C spine reviewed 3. Counseling: The patient was counseled for 3 minutes on SMOKING CESSATION. Specifically, the patient was instructed regarding the importance of smoking cessation in the context of both chronic pain and overall health. She is currently working on quitting and smokes <1 PPD 4. Procedures: Will schedule b/l occipital nerve blocks 5. Consultations: none 6. Medications: no changes 7. Disposition: for above mentioned procedure Past Medical History Past Medical History: Atrial Fibrillation, Asthma, Coronary Artery Disease (CAD), Chest Pain / Angina, COPD, CVA/TIA, Dementia, Fibromyalgia, GERD/Reflux, Hyperlipidemia, Hypertension, Memory Impairment, Osteoarthritis (OA), Pneumonia Additional Past Medical History / Comment(s): EARLY DEMENTIA WITH SOME SHORT TERM MEMORY LOSS, NEUROPATHY BILATERAL UPPER AND LOWER EXTREMITIES, CHRONIC BACK PAIN, DJD, CVA 2006, TIA 2007, BRONCHITIS, SINUS PROBLEMS AT TIMES, 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 Past Anesthesia/Blood Transfusion Reactions: Previous Problems w/ Anesthesia Additional Past Anesthesia/Blood Transfusion Reaction / Comm: difficulty waking in past. clausterphobia Past Psychological History: Anxiety, Depression Smoking Status: Current every day smoker Past Alcohol Use History: Occasional, Rare Additional Past Alcohol Use History / Comment(s): Started smoking at age 15 or 16 up to 2-1/2 packs per day and is currently down to 1ppd. Patient does give history of heavy alcohol abuse off and on in the past but had quit alcohol completely 3 years ago. She does smoke marijuana. Patient lives in an apartment building with 4 other adults. She uses a cane for ambulation. Past Drug Use History: None Reported - Past Family History Mother Family Medical History: CVA/TIA Additional Family Medical History / Comment(s): Mother at age 73 from a brain stem stroke. Brother(s) Additional Family Medical History / Comment(s): Patient has 2 full brothers with no major medical problems. Patient does not have any sisters. Patient has 3 sons with no major medical problems. Father Family Medical History: Congestive Heart Failure (CHF), Myocardial Infarction ([place]) Additional Family Medical History / Comment(s): Father at age 76 from a massive heart attack. Medications and Allergies Home Medications Medication Instructions Recorded Confirmed Type Apixaban [Eliquis] 5 mg PO BID #60 tab 08/09/19 11/18/19 Rx Pravastatin Sodium [Pravachol] 80 mg PO HS #30 tab 08/09/19 11/18/19 Rx amLODIPine [Norvasc] 5 mg PO DAILY #30 tab 08/09/19 11/18/19 Rx Desvenlafaxine Succinate [Pristiq 50 mg PO DAILY 11/18/19 11/18/19 History ER] QUEtiapine [SEROquel] 25 - 50 mg PO HS 11/18/19 11/18/19 History Umeclidinium [place] [Incruse 1 puff INHALATION RT-DAILY 11/18/19 11/18/19 History Ellipta] Azithromycin [Zithromax] 500 mg PO Q24H #3 tab 11/24/19 Rx Budesonide [Pulmicort] 0.5 mg INHALATION RT-BID #60 nebu 11/24/19 Rx Famotidine [Pepcid] 20 mg PO DAILY #30 tab 11/24/19 Rx Ipratropium-Albuterol Nebulize 3 ml INHALATION RT-QID #120 11/24/19 Rx [Duoneb 0.5 mg-3 mg/3 ml Soln] ampul.neb Metoprolol Tartrate [Lopressor] 25 mg PO BID #60 tab 11/24/19 Rx Nicotine 21Mg/24Hr Patch [Habitrol] 1 patch TRANSDERM DAILY #30 patch 11/24/19 Rx Nystatin 100,000 Unit/ml Susp 500,000 unit PO QID #20 dose 11/24/19 Rx [Mycostatin Oral Susp] guaiFENesin-DM 600/30MG [Mucinex 2 each PO Q12HR tab.er.12h 11/24/19 Rx Dm] predniSONE 0 mg PO DIRECTED #30 tab 11/24/19 Rx Celecoxib [CeleBREX] 200 mg PO DAILY #30 cap 11/25/19 Rx Allergies Allergy/AdvReac Type Severity Reaction Status Date / Time atorvastatin [From Lipitor] Allergy Unknown Verified 11/18/19 16:37 cephalexin monohydrate Allergy Rash/Hives Verified 11/18/19 16:37 [From Keflex] ciprofloxacin [From Cipro] Allergy Swelling Verified 11/18/19 16:37 latex Allergy Rash/Hives Verified 11/18/19 16:37 oxytetracycline Allergy Rash/Hives Verified 11/18/19 16:37 [From Terramycin] Penicillins Allergy Rash/Hives Verified 11/18/19 16:37 Sulfa (Sulfonamide Allergy Rash/Hives Verified 11/18/19 16:37 Antibiotics) PQRS Measure Charge Sheet PQRS Narrative: Smoking Status Current every day smoker Home Medications: Ambulatory Orders Apixaban [Eliquis] 5 mg PO BID #60 tab 08/09/19 Pravastatin Sodium [Pravachol] 80 mg PO HS #30 tab 08/09/19 amLODIPine [Norvasc] 5 mg PO DAILY #30 tab 08/09/19 Desvenlafaxine Succinate [Pristiq ER] 50 mg PO DAILY 11/18/19 QUEtiapine [SEROquel] 25 - 50 mg PO HS 11/18/19 Umeclidinium [place] [Incruse Ellipta] 1 puff INHALATION RT-DAILY 11/18/19 Azithromycin [Zithromax] 500 mg PO Q24H #3 tab 11/24/19 Budesonide [Pulmicort] 0.5 mg INHALATION RT-BID #60 nebu 11/24/19 Famotidine [Pepcid] 20 mg PO DAILY #30 tab 11/24/19 Ipratropium-Albuterol Nebulize [Duoneb 0.5 mg-3 mg/3 ml Soln] 3 ml INHALATION RT-QID #120 ampul.neb 11/24/19 Metoprolol Tartrate [Lopressor] 25 mg PO BID #60 tab 11/24/19 Nicotine 21Mg/24Hr Patch [Habitrol] 1 patch TRANSDERM DAILY #30 patch 11/24/19 Nystatin 100,000 Unit/ml Susp [Mycostatin Oral Susp] 500,000 unit PO QID #20 dose 11/24/19 guaiFENesin-DM 600/30MG [Mucinex Dm] 2 each PO Q12HR tab.er.12h 11/24/19 predniSONE 0 mg PO DIRECTED #30 tab 11/24/19 Celecoxib [CeleBREX] 200 mg PO DAILY #30 cap 11/25/19
== END | disposition home or self-care (01) ==
LOC: PNWHC3 07:21
PROVIDERS: ATTEND Anesthesiology
DX: Z53.9 Procedure and treatment not carried out, unspecified reason (principal)

== ENCOUNTER → 2020-04-09 | Outpatient (CLI) | payer MEDICARE, OTHER | END | disposition home or self-care (01) | LOC: LABWHC1 13:52 | PROVIDERS: ATTEND Internal Medicine | DX: Z11.59 Encounter for screening for other viral diseases (principal) ==

== ENCOUNTER 2020-04-13 09:30 | Day surgery (SDC) | payer MEDICARE, OTHER ==
[2020-04-12 14:35] VITALS: BMI 33.3
[~2020-04-13 09:30] MED LIST: LACTATED RINGERS 1,000 ML IV SCH
[2020-04-13 10:17] VITALS: RESP 18; TEMP 97.5
[2020-04-13] MEDS ORDERED: BUPIVACAINE (PF) 0.5% 30 ML VIAL ONE (10:33)
[2020-04-13] MEDS ORDERED: DEXAMETHASONE SOD PHOSPHATE 10 MG/ML 1 ML VIAL ONE (10:33)
[2020-04-13] MEDS ORDERED: MIDAZOLAM 2 MG/2 ML VIAL ONE (10:33)
[2020-04-13] MEDS ORDERED: fentaNYL (PF) 50 MCG/ML 2 ML AMP ONE (10:33)
--- NOTE | 2020-04-13 10:46 | P.PCN ---
Date of Procedure: 04/13/20 Description of Procedure: Pre-operative diagnosis: occipital neuralgia Post Operative Diagnosis: occipital neuralgia Procedure: Bilateral occipital nerve block under ultrasound - Ultrasound used to place needle and avoid vascular structures. Anesthesia: local with 1% lidocaine and IV sedation per nurse anesthesia PROCEDURE INDICATION: The patient with neck pain and headache secondary to occipital neuralgea unresponsive to conservative treatments. PROCEDURE DESCRIPTION / TECHNIQUE: The patient was seen and identified in the preoperative area. Risks, benefits, complications, and alternatives were discussed with the patient, the patient agreed to proceed with the procedure and signed the consent. Vital signs remained stable throughout the procedure. Patient was taken to the OR and time out was completed. The patient was placed in the sitting position on the procedure table. The cervical area and occiptial area were prepped with alcohol swab. Critical pause was taken. Vital signs were closely monitored during the procedure. Conscious sedation was used during the procedure to decrease patients anxiety. Right side: Ultrasound was used and the occipital artery was visualized exiting the skull about 2-3 cm lateral and 2cm inferior to the occipital protuberance On the right side. Then after negative aspiration, a 25g needed was introduced under ultrasound, negative aspiration confirmed and then 3 ml of the block solution containing 2.5 ml of PF Ropivaciane 0.5% and dexamethasone (5mg) was injected after negative aspiration. Needle was withdrawn intact. Left side: Ultrasound was used and the occipital artery was visualized exiting the skull about 2-3 cm lateral and 2cm inferior to the occipital protuberance On the left side. Then after negative aspiration, a 25g needed was introduced under ultrasound, negative aspiration confirmed and then 3 ml of the block solution containing 2.5 ml of PF Ropivaciane 0.5% and dexamethasone (5mg) was injected after negative aspiration. Needle was withdrawn intact. Patient tolerated procedure well. No acute complications.
[2020-04-13] MEDS ORDERED: IV FLUID CONTINUATION 800 ML IV ONE (10:50)
[2020-04-13 11:07] VITALS: BP 91/52; PULSE 94
== END 2020-04-13 11:23 | disposition home or self-care (01) ==
LOC: ORPAIN 09:30
PROVIDERS: ATTEND Hospitalist
DX: M54.81 Occipital neuralgia (principal); Z88.1 Allergy status to other antibiotic agents; Z88.0 Allergy status to penicillin
CPT/HCPCS: 64405; J2250; J1100; J3010

== ENCOUNTER 2020-07-03 02:29 | Inpatient (IN) | payer MEDICARE, OTHER ==
[2020-07-03] MEDS ORDERED: HYDROmorphone 1 MG/ML 1 ML SYRINGE IVP STA (02:48)
--- NOTE | 2020-07-03 02:55 | ED ---
Chest Pain HPI - General Chief Complaint: Chest Pain Stated Complaint: Abdominal Pain Time Seen by Provider: 07/03/20 02:30 Source: patient, family, EMS Mode of arrival: EMS Limitations: no limitations - History of Present Illness Initial Comments: This patient is a 69-year-old woman presenting to have evaluation of pain at the upper abdomen/costal margin. She states it goes all around her almost bandlike. There is also a component pain in the back. She states this started approximately 3 hours ago. MD Complaint: chest pain Onset/Timin -: hour(s) Onset: during rest Pain Location: other Pain Radiation: back Severity: severe Quality: aching Consistency: constant Improves With: nothing Worsens With: nothing Treatments Prior to Arrival: other (Fentanyl) - Related Data Home Medications Medication Instructions Recorded Confirmed QUEtiapine [SEROquel] 1 tab PO HS 11/18/19 04/13/20 Desvenlafaxine Succinate [Pristiq] 50 mg PO DAILY 04/13/20 04/13/20 Pantoprazole [Protonix] 40 mg PO DAILY 04/13/20 04/13/20 Previous Rx's Medication Instructions Recorded Apixaban [Eliquis] 5 mg PO BID #60 tab 08/09/19 Pravastatin Sodium [Pravachol] 80 mg PO HS #30 tab 08/09/19 amLODIPine [Norvasc] 5 mg PO DAILY #30 tab 08/09/19 Nicotine 21Mg/24Hr Patch [Habitrol] 1 patch TRANSDERM DAILY #30 patch 11/24/19 guaiFENesin-DM 600/30MG [Mucinex 2 each PO Q12HR tab.er.12h 11/24/19 Dm] Allergies Allergy/AdvReac Type Severity Reaction Status Date / Time atorvastatin [From Lipitor] Allergy Unknown Verified 04/13/20 10:00 cephalexin monohydrate Allergy Rash/Hives Verified 04/13/20 10:00 [From Keflex] ciprofloxacin [From Cipro] Allergy Swelling Verified 04/13/20 10:00 latex Allergy Rash/Hives Verified 04/13/20 10:00 oxytetracycline Allergy Rash/Hives Verified 04/13/20 10:00 [From Terramycin] Penicillins Allergy Rash/Hives Verified 04/13/20 10:00 Sulfa (Sulfonamide Allergy Rash/Hives Verified 04/13/20 10:00 Antibiotics) Review of Systems ROS Statement: Those systems with pertinent positive or pertinent negative responses have been documented in the HPI. ROS Other: All systems not noted in ROS Statement are negative. Constitutional: Denies: fever, chills Respiratory: Denies: cough, dyspnea Cardiovascular: Denies: chest pain, palpitations, edema Gastrointestinal: Reports: abdominal pain, nausea, vomiting. Denies: diarrhea, constipation Genitourinary: Denies: dysuria, hematuria Musculoskeletal: Denies: back pain Skin: Denies: rash Neurological: Denies: headache, weakness, numbness EKG Findings - EKG Comments: EKG Findings:: Similar to comparison ECG from November 2019 - EKG Results: EKG: interpreted by ERMD, sinus rhythm, normal axis EKG shows: tachycardia (Tachycardia) Past Medical History Past Medical History: Atrial Fibrillation, Asthma, Coronary Artery Disease (CAD), Chest Pain / Angina, COPD, CVA/TIA, Dementia, Fibromyalgia, GERD/Reflux, Hyperlipidemia, Hypertension, Memory Impairment, Osteoarthritis (OA), Pneumonia Additional Past Medical History / Comment(s): EARLY DEMENTIA WITH SOME SHORT TERM MEMORY LOSS, NEUROPATHY BILATERAL UPPER AND LOWER EXTREMITIES, CHRONIC BACK PAIN, DJD, CVA 2006, TIA 2007, BRONCHITIS, SINUS PROBLEMS AT TIMES, 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 Past Anesthesia/Blood Transfusion Reactions: Previous Problems w/ Anesthesia Additional Past Anesthesia/Blood Transfusion Reaction / Comment(s): difficulty waking in past. clausterphobia Past Psychological History: Anxiety, Depression Smoking Status: Current every day smoker Past Alcohol Use History: Occasional, Rare Past Drug Use History: Marijuana - Past Family History Mother Family Medical History: CVA/TIA Additional Family Medical History / Comment(s): Mother at age 73 from a brain stem stroke. Brother(s) Additional Family Medical History / Comment(s): Patient has 2 full brothers with no major medical problems. Patient does not have any sisters. Patient has 3 sons with no major medical problems. Father Family Medical History: Congestive Heart Failure (CHF), Myocardial Infarction ([place]) Additional Family Medical History / Comment(s): Father at age 76 from a massive heart attack. General Exam Limitations: no limitations General appearance: alert, in no apparent distress Head exam: Present: atraumatic, normocephalic Eye exam: Present: normal appearance. Absent: scleral icterus, conjunctival injection ENT exam: Present: normal oropharynx Neck exam: Present: normal inspection Respiratory exam: Present: normal lung sounds bilaterally. Absent: respiratory distress, wheezes, rales, rhonchi, chest wall tenderness Cardiovascular Exam: Present: normal rhythm, tachycardia, normal heart sounds. Absent: systolic murmur, diastolic murmur, rubs, gallop GI/Abdominal exam: Present: soft, tenderness. Absent: distended, guarding, rebound, rigid, mass, pulsatile mass, hernia Extremities exam: Present: normal inspection, normal capillary refill. Absent: pedal edema, calf tenderness Back exam: Present: normal inspection. Absent: CVA tenderness (R), CVA tenderness (L) Neurological exam: Present: alert Skin exam: Present: warm, dry, intact, normal color. Absent: rash Course Vital Signs 07/03/20 07/03/20 07/03/20 02:33 02:40 03:06 Temperature 100.8 F H Pulse Rate 109 H 108 H Respiratory 18 18 18 Rate Blood Pressure 133/81 190/86 O2 Sat by Pulse 95 99 Oximetry 07/03/20 07/03/20 07/03/20 03:36 04:20 06:06 Temperature Pulse Rate 93 97 106 H Respiratory 16 17 16 Rate Blood Pressure 162/78 165/74 157/72 O2 Sat by Pulse 97 98 Oximetry 07/03/20 06:38 Temperature Pulse Rate Respiratory Rate Blood Pressure 118/65 O2 Sat by Pulse Oximetry Chest Pain [facility] Patient is 69-year-old woman presenting with abdominal pain. She is found to have elevated lipase concerning for pancreatitis. Case discussed with admitting physician and will have GI consultation. Disposition Clinical Impression: Abdominal pain, Pancreatitis Disposition: ADMITTED IP TO THIS [facility] Condition: Fair
[2020-07-03] MEDS ORDERED: LABETALOL 5 MG/ML VIAL MDV IVP STA (02:56)
[2020-07-03 03:07] LABS: Basophils % (A) 0 %; Eosinophils # (A) 0.1 k/uL (0-0.7); Eosinophils % (A) 1 %; HCT 42.1 % (34.0-46.0); HGB 13.8 gm/dL (11.4-16.0); Lymphocytes # (A) 0.9 k/uL (1.0-4.8); Lymphocytes % (A) 8 %; MCH 28.6 pg (25.0-35.0); MCHC 32.7 g/dL (31.0-37.0); MCV 87.5 fL (80.0-100.0); Mean Platelet Volume 8.5; Monocytes # (A) 0.2 k/uL (0-1.0); Monocytes % (A) 2 %; Neutrophils # (A) 10.2 k/uL (1.3-7.7); Neutrophils % (A) 89 %; Platelet Count 274 k/uL (150-450); RBC 4.81 m/uL (3.80-5.40); RDW 13.2 % (11.5-15.5); WBC 11.5 k/uL (3.8-10.6)
[2020-07-03 03:14] LABS: Albumin 4.4 g/dL (3.5-5.0); Calcium 9.7 mg/dL (8.4-10.2); Magnesium 1.6 mg/dL (1.6-2.3); Potassium 3.5 mmol/L (3.5-5.1)
[2020-07-03 03:29] LABS: D-Dimer 0.53 mg/L FEU (<0.60); Partial Thromboplastin Time 23.5 sec (22.0-30.0); Prothrombin Time 10.2 sec (9.0-12.0)
--- NOTE | 2020-07-03 04:11 | XR ---
EXAMINATION TYPE: XR chest 1V portable DATE OF EXAM: 07/03/2020 COMPARISON: 11/18/2019 HISTORY: Chest pain TECHNIQUE: FINDINGS: Heart and mediastinum are normal. Lungs are clear. Diaphragm is normal. There are chest cecil ds. Bony thorax is intact. IMPRESSION: No active cardiopulmonary disease. Normal heart. No change.
[2020-07-03] MEDS ORDERED: PROMETHAZINE INJ 25 MG in SODIUM CHLORIDE 0.9% 50 ML IVPB ONE (05:00)
--- NOTE | 2020-07-03 05:44 | CT ---
EXAMINATION TYPE: CT abdomen pelvis w con DATE OF EXAM: 07/03/2020 COMPARISON: 07/02/2019 HISTORY: Abd Pain, Epigastric Pain CT DLP: 1496.30 mGycm Automated exposure control for dose reduction was used. CONTRAST: Performed with IV Contrast, patient injected with 100 mL of Isovue 300. Lung bases are clear. There is no pleural effusion. Heart size is normal. There is no pericardial eff usion. There is dilated biliary tree. Common bile duct is dilated. There is no evidence of a pancreatic mass . Common bile duct measures 1.5 cm. The stomach is intact. There is no focal liver defect. Spleen is intact. There is no adrenal mass. Kidneys show satisfactory contrast opacification. There is 3.5 cm cortical cyst lateral right kidney. There is cortical thinning upper pole left kidney. Ureters are not dilated . There is no retroperitoneal adenopathy. There are multiple diverticula in the sigmoid colon. Bladde r distends smoothly. There is no inguinal hernia. There is no free fluid in the pelvis. There is hyst erectomy. Appendix is not definitely seen. There is no sign of thickened appendix. There is no mesenteric edema . There is no ascites or free air. There is no bowel obstruction. Lumbar vertebra have fairly normal spacing and alignment. There is no compression fracture. The bony pelvis is intact. The hip joints ar e intact. IMPRESSION: There is dilated biliary tree and common bile duct unchanged compared to old exam. No obstructing les ion seen. There is mild colonic diverticulosis without diverticulitis. Cortical thinning upper pole left kidney slightly increased compared to old exam and could relate to chronic pyelonephritis.
[2020-07-03] MEDS ORDERED: HYDROmorphone 0.5 MG/0.5 ML SYRINGE IVP PRN (05:48)
[2020-07-03] MEDS ORDERED: NALOXONE 0.4 MG/ML 1 ML VIAL IV PRN (05:48)
[2020-07-03] MEDS: SODIUM CHLORIDE 0.9% 1,000 ML IV SCH (06:06)
[2020-07-03] MEDS: PANTOPRAZOLE 40 MG TABLET PO SCH (08:51)
[2020-07-03] MEDS: amLODIPine 5 MG TAB PO SCH (08:52)
[2020-07-03] MEDS: APIXABAN 5 MG TAB PO SCH ×2 (08:52→20:05)
[2020-07-03] MEDS ORDERED: DESVENLAFAXINE SUCCINATE 50 MG TAB.ER.24H PO SCH (09:00)
[2020-07-03] MEDS: NICOTINE 21MG/24HR PATCH TRANSDERM SCH (09:04)
[2020-07-03] MEDS: HYDROmorphone 1 MG/ML 1 ML SYRINGE IVP PRN ×4 (09:04→21:58)
--- NOTE | 2020-07-03 10:10 | P.HPIM ---
History of Present Illness H&P Date: 07/03/20 Chief Complaint: Abdominal pain This is 69 years old female with past medical history significant for alcohol abuse who presented to the emergency department with new onset abdominal pain. Patient lives at home with her son and stated that she was in the process of moving when she went back to drinking after 3 years from being sober area patient stated that her drinking habit is either beer or cloak on ROM every nights and last drink was 2 days ago when she had 3 glasses of rum and Coke. Patient started having epigastric pain later traveled to the right upper quadran t pain was intractable to the point where she was not able to eat or drink was feeding nauseous all the time but no vomiting patient felt chills but no fever and stated that she never had this issue before. Patient had history of necrotic liver related to her drinking in the past and lost to follow-up with her GI specialist outpatient. In the emergency department lipase was greater than 3000 and patient was admitted with acute pancreatitis. Patient is smoker of every day smokes 1 pack per day denied IV drug abuse Review of Systems All 14 systems reviewed and negative except as above Past Medical History Past Medical History: Atrial Fibrillation, Asthma, Coronary Artery Disease (CAD), Chest Pain / Angina, COPD, CVA/TIA, Dementia, Fibromyalgia, GERD/Reflux, Hyperlipidemia, Hypertension, Memory Impairment, Osteoarthritis (OA), Pneumonia Additional Past Medical History / Comment(s): EARLY DEMENTIA WITH SOME SHORT TERM MEMORY LOSS, NEUROPATHY BILATERAL UPPER AND LOWER EXTREMITIES, CHRONIC BACK PAIN, DJD, CVA 2006, TIA 2007, BRONCHITIS, SINUS PROBLEMS AT TIMES, 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 Past Anesthesia/Blood Transfusion Reactions: Previous Problems w/ Anesthesia Additional Past Anesthesia/Blood Transfusion Reaction / Comment(s): difficulty waking in past. clausterphobia Past Psychological History: Anxiety, Depression Additional Psychological History / Comment(s): Pt lives with son right now with 1 cat. Pt uses a wheeled walker or a cane. Pt no longer drives, she takes the bus. She denies any suicidal thoughts/plans. Smoking Status: Current every day smoker Past Alcohol Use History: Occasional, Rare Additional Past Alcohol Use History / Comment(s): Started smoking at age 15 or 16 up to 2-1/2 packs per day and is currently down to 1ppd. Patient does give history of heavy alcohol abuse off and on in the past but had quit alcohol completely 3 years ago. She does smoke marijuana. Patient lives in an apartment building with 4 other adults. She uses a cane for ambulation. Past Drug Use History: Marijuana Additional Drug Use History / Comment(s): Occasional marijuana use - Past Family History Mother Family Medical History: CVA/TIA Additional Family Medical History / Comment(s): Mother at age 73 from a brain stem stroke. Brother(s) Additional Family Medical History / Comment(s): Patient has 2 full brothers with no major medical problems. Patient does not have any sisters. Patient has 3 sons with no major medical problems. Father Family Medical History: Congestive Heart Failure (CHF), Myocardial Infarction ([place]) Additional Family Medical History / Comment(s): Father at age 76 from a massive heart attack. Medications and Allergies Home Medications Medication Instructions Recorded Confirmed Type Apixaban [Eliquis] 5 mg PO BID #60 tab 08/09/19 04/13/20 Rx Pravastatin Sodium [Pravachol] 80 mg PO HS #30 tab 08/09/19 04/13/20 Rx amLODIPine [Norvasc] 5 mg PO DAILY #30 tab 08/09/19 04/13/20 Rx QUEtiapine [SEROquel] 1 tab PO HS 11/18/19 04/13/20 History Nicotine 21Mg/24Hr Patch [Habitrol] 1 patch TRANSDERM DAILY #30 patch 11/24/19 04/13/20 Rx guaiFENesin-DM 600/30MG [Mucinex 2 each PO Q12HR tab.er.12h 11/24/19 04/13/20 Rx Dm] Desvenlafaxine Succinate [Pristiq] 50 mg PO DAILY 04/13/20 04/13/20 History Pantoprazole [Protonix] 40 mg PO DAILY 04/13/20 04/13/20 History Allergies Allergy/AdvReac Type Severity Reaction Status Date / Time atorvastatin [From Lipitor] Allergy Unknown Verified 04/13/20 10:00 cephalexin monohydrate Allergy Rash/Hives Verified 04/13/20 10:00 [From Keflex] ciprofloxacin [From Cipro] Allergy Swelling Verified 04/13/20 10:00 latex Allergy Rash/Hives Verified 04/13/20 10:00 oxytetracycline Allergy Rash/Hives Verified 04/13/20 10:00 [From Terramycin] Penicillins Allergy Rash/Hives Verified 04/13/20 10:00 Sulfa (Sulfonamide Allergy Rash/Hives Verified 04/13/20 10:00 Antibiotics) Physical Exam Vitals: Vital Signs Temp Pulse Pulse Resp BP BP Pulse Ox 07/03/20 06:45 98.8 F 111 H 17 129/58 94 L 07/03/20 06:38 118/65 07/03/20 06:06 106 H 16 157/72 07/03/20 04:20 97 17 165/74 98 07/03/20 03:36 93 16 162/78 97 07/03/20 03:06 108 H 18 190/86 99 07/03/20 02:40 18 07/03/20 02:33 100.8 F H 109 H 18 133/81 95 Intake and Output 07/02/20 07/03/20 07/03/20 22:59 06:59 14:59 Other: Weight 89.811 kg 89.811 kg Gen.: in stated age, no acute distress Heart: Normal S1-S2 Lungs: Clear to auscultation bilaterally Abdomen: Soft, positive for generalized tenderness worse in the epigastric and right upper quadrant area with mild rebound but no guarding, positive bowel sounds in all 4 quadrant no guarding or rebound Skin: No new rash Psych: Alert and oriented 3 Neuro: No focal deficit Results CBC & Chem 7: 07/03/20 02:53 07/03/20 02:53 Labs: Abnormal Lab Results - Last 24 Hours (Table) 07/03/20 07/03/20 Range/Units 02:53 02:53 WBC 11.5 H (3.8-10.6) k/uL Neutrophils # 10.2 H (1.3-7.7) k/uL Lymphocytes # 0.9 L (1.0-4.8) k/uL BUN 22 H (7-17) mg/dL Glucose 140 H (74-99) mg/dL AST 122 H (14-36) U/L ALT 63 H (4-34) U/L Alkaline Phosphatase 212 H (38-126) U/L Amylase 152 H (30-110) U/L Lipase 3276 H (23-300) U/L Thrombosis Risk Factor Assmnt - Choose All That Apply Each Factor Represents 1 point: Abnormal pulmonary function (COPD), Obesity (BMI >25) Each Risk Factor Represents 2 Points: Age 61-74 years Thrombosis Risk Factor Assessment Total Risk Factor Score: 4 Thrombosis Risk Factor Assessment Level: Moderate Risk Assessment and Plan Plan: 1. Acute pancreatitis. 2. Alcohol abuse, recurrent. 3. Mild leukocytosis. 4. History of necrotic liver. 5. Dilated common bile duct on current imaging study seems to be chronic from prior evaluation. 6. Morbid obesity. 7. Dementia. 8. Atrial fibrillation on anticoagulation area 9. Tobacco dependency. 10. COPD with mild exacerbation. 11. Peripheral neuropathy. 12. Chronic back pain. 13. Anxiety and depression. 14. Generalized osteoarthritis. 15. Coronary artery disease. Plan discussed with patient and nursing staff where I would like to continue with nothing by mouth status, approved for ice chips only and sips with medication, GI consult obtained, repeat electrolytes in the morning and repeat lipase avoid nephrotoxic medication and continue gentle hydration with normal saline at 100 mL/h. Patient counseled regarding alcohol cessation and tobacco cessation and stated that she was trying very hard to stay sober but was difficult with the stressful condition. Patient has level of dementia and needs to follow-up closely with family care physician outpatient and would have cyst psychosocial rehabilitation counselor evaluated the patient during this hospital stay. Regarding her d ilated common bile duct seems to be chronic from prior evaluation I would like to have GI follow-up and I consider further testing based on clinical progress. We will continue heart rate controlling agent we continue with factor X inhibitors home dose and monitor hemoglobin closely and monitor hemodynamic. I would like to start patients on scheduled breathing treatment and as needed due to mild exacerbation of her COPD and consider steroid based on clinical progress. We'll resume her anxiety and pain medication with holding parameters that was discussed with nursing staff at the bedside. Prognosis is guarded at this point
[2020-07-03] MEDS: IPRATROPIUM-ALBUTEROL 3 ML NEB INHALATION PRN ×3 (10:27→20:23)
--- NOTE | 2020-07-03 15:49 | CONS ---
CONSULTATION DATE OF SERVICE: July 03, 2020. REQUESTING PHYSICIAN: Dr. Vo. REASON FOR CONSULTATION: Acute pancreatitis. HISTORY OF PRESENT ILLNESS: The patient is a 69-year-old pleasant white female with history of heavy alcohol abuse in the past, who quit drinking about 3 or 4 years ago, but however for the last few months has been drinking on and off. She came to the emergency room complaining of severe abdominal pain that started yesterday. The pain was mostly in the epigastric and right upper quadrant area associated with some nausea but no vomiting. She came to the emergency room, was noted to have elevated lipase consistent with acute pancreatitis. She is feeling somewhat better today. She reports no fever, chills, or night sweats. She had no emesis today. In the emergency room, she was noted to have elevated lipase which was 3276. Amylase is 152. She was also noted to have elevated serum transaminases with AST of 122, ALT 63, and alk phos 212. PAST MEDICAL HISTORY: Significant for hypertension, hyperlipidemia, gastroesophageal reflux disease, anxiety, depression, coronary artery disease, atrial fibrillation on Eliquis, gastroesophageal reflux disease, degenerative joint disease and pneumonia, mild early dementia, history of alcohol abuse. PAST SURGICAL HISTORY: Tonsillectomy, tubal ligation, cholecystectomy 40 years ago, hysterectomy, bladder surgery, cardiac cath, ovarian tumor removal, multiple colonoscopies. SOCIAL HISTORY: Chronic smoker. Alcohol use as mentioned above, history of heavy alcohol abuse in the past. She quit drinking about 3 years ago but lately has started drinking again 2 or 3 times a week. FAMILY HISTORY: Mother has CVA. Brother no major medical problems and father had coronary artery disease and congestive heart failure. MEDICATIONS: Medications at home include Eliquis, Pravachol, Norvasc, Seroquel, Habitrol, Mucinex, Pristiq, Protonix. ALLERGIES: KEFLEX, CIPRO, TERRAMYCIN, AND SULFA. REVIEW OF SYSTEMS: CARDIOPULMONARY: No chest pain, no shortness of breath. no dysuria or hematuria. MUSCULOSKELETAL: Complains of some back pain. NEUROLOGY: Anxiety and mild dementia. ENT/VISION: Unremarkable. CONSTITUTIONAL: No recent weight loss. No fever, chills, night sweats. GI: As mentioned above. HEMATOLOGY unremarkable. ENDOCRINE unremarkable. PHYSICAL EXAMINATION: She appears comfortable. No apparent distress. Vital signs stable. Blood pressure is 129/58, pulse rate 101. Temperature 98.8. HEENT examination unremarkable. Conjunctivae pink. Sclerae anicteric. Oral cavity no lesions. NECK no JVD or lymph node enlargement. CHEST was clear to auscultation. HEART: Regular rate and rhythm. ABDOMEN: Soft. Bowel sounds are positive. No organomegaly. There was tenderness in the epigastric area. Mild tenderness in the right upper quadrant as well as in the left upper quadrant area. Rest of the abdomen was benign. It was obese. EXTREMITIES: No pedal edema. SKIN no rashes. NEUROLOGIC: Alert and oriented x3. No focal deficits. LABS: Done today WBC 7.5, hemoglobin 14.8, platelets normal. Basic metabolic panel showed a BUN of 22, creatinine 0.8. BMP is normal. Amylase 152, lipase 3276. AST and ALT 122 and 62 respectively. Alkaline phosphatase is 212. She did have a CT of the abdomen and pelvis done in the emergency room that showed dilated biliary tree and common bile duct but unchanged from prior examination in 2019. The common bile duct measures 1.5 cm in size. No pancreatic mass is identified. Evidence of previous cholecystectomy. IMPRESSION: 1. Acute pancreatitis, first episode in this lady who has history of heavy alcohol abuse in the past, which she quit drinking about 3 years ago, but she started drinking again 2 or 3 times a week. She does have multiple slight elevation of serum transaminases, which is consistent more with alcoholic liver disease rather than biliary pancreatitis. She has remote history of cholecystectomy 40 years ago. She is feeling better today. 2. Atrial fibrillation on Eliquis. 3. History of hypertension and hyperlipidemia. 4. Remote history of heavy alcohol abuse. RECOMMENDATIONS: 1. Continue with aggressive IV hydration. 2. Symptomatic and supportive care and pain control. 3. Monitor LFTs closely. 4. No indication for an ERCP at the present time as clinically doubt we are dealing with biliary pancreatitis. 5. If her LFTs increase, we may consider an MRCP during this hospitalization. The plan was discussed with the patient. She is agreeable to it. Thank you for this consultation. DANAY / JESSICA: [phone] /
[2020-07-03] MEDS ORDERED: MECLIZINE 25 MG TAB PO PRN (17:58)
[2020-07-03] MEDS: PRAVASTATIN SODIUM 80 MG TAB PO SCH (20:05)
[2020-07-03] MEDS: QUEtiapine 25 MG TAB PO SCH (20:05)
[2020-07-04] MEDS: HYDROmorphone 1 MG/ML 1 ML SYRINGE IVP PRN ×5 (02:25→20:33)
[2020-07-04] MEDS: SODIUM CHLORIDE 0.9% 1,000 ML IV SCH (07:27)
[2020-07-04] MEDS: amLODIPine 5 MG TAB PO SCH (07:44)
[2020-07-04] MEDS: NICOTINE 21MG/24HR PATCH TRANSDERM SCH (07:46)
[2020-07-04] MEDS: PANTOPRAZOLE 40 MG TABLET PO SCH (07:46)
[2020-07-04] MEDS: APIXABAN 5 MG TAB PO SCH ×2 (07:46→20:28)
[2020-07-04] MEDS: IPRATROPIUM-ALBUTEROL 3 ML NEB INHALATION PRN ×2 (09:01→15:23)
[2020-07-04] MEDS ORDERED: LORazepam 2 MG/ML INJ IV PRN ×3 (09:03)
[2020-07-04] MEDS ORDERED: diphenhydrAMINE 25 MG CAP PO PRN (09:03)
--- NOTE | 2020-07-04 10:20 | P.PN ---
Subjective Progress Note Date: 07/04/20 Principal diagnosis: Acute pancreatitis Patient continued to be hemodynamic a stable overnight no major events reported by nursing staff patient still complaining of right-sided abdominal pain and epigastric. Patient is still feeling nauseous with no appetite. Patient had some improvement in her wheezing after starting scheduled breathing treatment but still having audible wheezing at the bedside area did Objective - Vital Signs Vital signs: Vital Signs Temp 100.1 F H 07/04/20 07:00 Pulse 100 07/04/20 09:16 Resp 18 07/04/20 07:00 BP 98/57 07/04/20 07:00 Pulse Ox 94 L 07/04/20 07:00 Intake & Output 07/03/20 07/04/20 07/04/20 18:59 06:59 18:59 Intake Total 800 1600 Balance 800 1600 Weight 89.811 kg Intake: IV 800 1600 Sodium Chloride 0.9% 1, 800 1600 000 ml @ 100 mls/hr IV . Q10H [facility] Rx#:[id number] Other: Voiding Method Toilet # Voids 2 - Exam Gen.: in stated age, no acute distress Heart: Normal S1-S2 Lungs: Bilateral wheezing Abdomen: Soft, mild generalized tenderness, positive bowel sounds in all 4 quadrant no guarding or rebound Skin: No new rash Psych: Alert and oriented 3 Neuro: No focal deficit - Labs CBC & Chem 7: 07/03/20 02:53 07/03/20 02:53 Assessment and Plan Plan: 1. Acute pancreatitis. 2. Alcohol abuse, recurrent. 3. Mild leukocytosis. 4. History of necrotic liver. 5. Dilated common bile duct on current imaging study seems to be chronic from prior evaluation. 6. Morbid obesity. 7. Dementia. 8. Atrial fibrillation on anticoagulation area 9. Tobacco dependency. 10. COPD with mild exacerbation. 11. Peripheral neuropathy. 12. Chronic back pain. 13. Anxiety and depression. 14. Generalized osteoarthritis. 15. Coronary artery disease. Patient with some improvement in her abdominal pain. Blood work is pending this morning and if lipase is going in the right direction close to normal and would like to start clear liquid diet and monitor over the 24 hours and repeat enzymes in the morning. Will follow-up on liver function test and if it's improving no need for further diagnostic by GI. I would like to add Symbicort to her current breathing treatment and consider Medrol Dosepak based on clinical progress. Patient with significant dementia that may benefit from geriatric evaluation on outpatient basis as she is forgetful and not able to keep any information and keep repeating herself. Patient counseled regarding tobacco and alcohol cessation and agreeable to that. We will continue with current heart rate co ntrolling agents and and pain INR within therapeutic dose. Prognosis is guarded. Plan on discharge based on clinical progress
--- NOTE | 2020-07-04 10:22 | XR ---
EXAMINATION TYPE: XR chest 2V DATE OF EXAM: 07/04/2020 COMPARISON: Chest CT August 07, 2019. Chest x-ray from yesterday. HISTORY: Wheezing and chest pain. TECHNIQUE: Frontal and lateral views of the chest are obtained. FINDINGS: There is background chronic emphysematous change without suspicious new focal air space op acity, pleural effusion, or pneumothorax seen. The cardiac silhouette size remains within normal dominique its. The osseous structures are intact. IMPRESSION: Chronic emphysematous change without acute pulmonary process.
[2020-07-04 10:28] LABS: Basophils % (A) 0 %; Eosinophils % (A) 0 %; HCT 35.4 % (34.0-46.0); HGB 11.5 gm/dL (11.4-16.0); Hypochromasia Slight; Lymphocytes # (A) 1.4 k/uL (1.0-4.8); Lymphocytes % (A) 8 %; MCH 28.9 pg (25.0-35.0); MCHC 32.5 g/dL (31.0-37.0); MCV 88.8 fL (80.0-100.0); Mean Platelet Volume 8.9; Monocytes # (A) 0.5 k/uL (0-1.0); Monocytes % (A) 3 %; Neutrophils # (A) 15.1 k/uL (1.3-7.7); Neutrophils % (A) 88 %; Platelet Count 179 k/uL (150-450); RBC 3.98 m/uL (3.80-5.40); RDW 13.7 % (11.5-15.5); WBC 17.2 k/uL (3.8-10.6)
[2020-07-04 10:41] LABS: ALT 100 U/L (4-34); AST 78 U/L (14-36); African American GFR (CKD) >90 (>60 ml/min/1.73 sqM); Albumin 3.4 g/dL (3.5-5.0); Alkaline Phosphatase 176 U/L (38-126); Anion Gap 8 mmol/L; Blood Urea Nitrogen 22 mg/dL (7-17); Calcium 8.2 mg/dL (8.4-10.2); Carbon Dioxide 28 mmol/L (22-30); Chloride 103 mmol/L (98-107); Glucose 111 mg/dL (74-99); Non-African American GFR(CKD) >90 (>60 ml/min/1.73 sqM); Potassium 3.9 mmol/L (3.5-5.1); Sodium 139 mmol/L (137-145); Total Bilirubin 0.7 mg/dL (0.2-1.3); Total Protein 5.6 g/dL (6.3-8.2)
[2020-07-04 12:00] LABS: Appearance,Urine Cloudy (Clear); Bacteria,Urine Moderate /hpf; Bilirubin,Urine Negative (Negative); Blood,Urine Large (Negative); Color,Urine Yellow; Glucose,Urine (UA) Negative (Negative); Ketones,Urine Negative (Negative); Leukocyte Esterase,Urine Moderate (Negative); Mucus,Urine Few /hpf; Nitrite,Urine Positive (Negative); Protein,Urine 1+ (Negative); RBC,Urine 14 /hpf (0-5); Specific Gravity,Urine 1.026 (1.001-1.035); Squamous Epithelial Cell,Urine 4 /hpf (0-4); Urobilinogen,Urine <2.0 mg/dL (<2.0); WBC,Urine 23 /hpf (0-5)
[2020-07-04 12:09] LABS: Amphetamine Screen,Urine Not Detected (NotDetected); Barbiturate Screen,Urine Not Detected (NotDetected); Benzodiazepines Screen,Urine Not Detected (NotDetected); Cocaine Screen,Urine Not Detected (NotDetected); Methadone Screen, Urine Not Detected (NotDetected); Opiate Screen,Urine Detected (NotDetected); Oxycodone Screen, Urine Not Detected (NotDetected); Phencyclidine Screen,Urine Not Detected (NotDetected); Tricyclic Antidepressant,Urine Detected (NotDetected); Urn Cannabinoid Scrn Not Detected (NotDetected)
--- NOTE | 2020-07-04 13:46 | PN ---
PROGRESS NOTE DATE OF SERVICE: 07/04/2020 INTERVAL HISTORY: Patient is a 69-year-old pleasant white female with history of heavy alcohol abuse, admitted to the hospital with acute pancreatitis. She is feeling somewhat better today. Still has some epigastric pain. Reports no nausea or vomiting. No fever, chills, or night sweats. PHYSICAL EXAMINATION: She appears comfortable. No apparent distress. VITAL SIGNS: Stable. Blood pressure is 98/57, pulse rate 104, temperature 100.1. HEENT: Examination unremarkable. Conjunctivae are pink. Sclerae anicteric. Oral cavity no lesions. NECK: No JVD or lymph node enlargement. CHEST: Clear to auscultation. HEART: Regular rate and rhythm. ABDOMEN: Obese. There was mild tenderness in the left upper quadrant area and epigastric area and slightly in the right lower quadrant area. Rest of the abdomen was benign. Bowel sounds are positive. EXTREMITIES: No pedal edema. SKIN: No rashes. NEURO: She is alert and oriented x3. No focal deficits. LABS: From today WBC 17.2, hemoglobin 11.5, platelets normal. Amylase was not done. Lipase is 37. AST and ALT are 78 and 100 respectively. Alkaline phosphatase is 176. T bilirubin is 0.7. IMPRESSION: 1. Acute pancreatitis, probably related to heavy alcohol abuse. Lipase has normalized. Clinically patient is doing much better. 2. Leukocytosis and low-grade fever, probably related to acute pancreatitis, rule out other etiologies. 3. Elevation of serum transaminases, probably related to chronic underlying alcoholic liver disease. RECOMMENDATIONS: 1. Start on clear liquid diet. 2. Monitor labs closely. 3. Abstinence from alcohol. 4. Obtain chest x-ray and urinalysis to rule out infection because of leukocytosis and fever. We will follow with you closely. Thank you for this consultation. MMODL / IJN: [id number] /
[2020-07-04] MEDS ORDERED: AZTREONAM 2 GM in SODIUM CHLORIDE 0.9% 100 ML IVPB ONE (15:45)
[2020-07-04] MEDS: THIAMINE 100 MG TAB PO SCH (15:48)
[2020-07-04] MEDS: SYMBICORT 160-4.5 MCG INHALER INHALATION SCH (19:59)
[2020-07-04] MEDS: PRAVASTATIN SODIUM 80 MG TAB PO SCH (20:28)
[2020-07-04] MEDS: QUEtiapine 25 MG TAB PO SCH (20:28)
[2020-07-04] MEDS: DESVENLAFAXINE SUCCINATE 50 MG TAB.ER.24H PO SCH (20:28)
--- NOTE | 2020-07-04 23:03 | P.CONS ---
History of Present Illness - Reason for Consult Consult date: 07/04/20 Fever of unknown origin and multiple antibiotic ALLERGIES Requesting physician: Melvina Dodge - Chief Complaint Abdominal pain x 2 days - History of Present Illness Patient is a 69 year female with a past medical history significant for alcoholism in this patient has been treated off and on for the last few months patient presented to [facility] ER on 07/02/2020 with chief complaints of epigastric abdominal pain that started about 3 hours before she pr esented to hospital patient described the pain to be sharp with some radiation to the back in intensity almost 10 out of 10 on presentation hospital patient has felt nauseated and did have an episode of vomiting patient denies having any chest pain or shortness of breath or cough no diarrhea or any urinary symptoms patient on presentation hospital did have a low-grade fever 100.8 and the patient did have elevated white count of 11.7 that his symptoms of 17,000 today patient also have elevated amylase and lipase suspicious for acute pancreatitis the patient have CT of abdominal pelvis which shows dilated CBD but did not mention any stones and no comment on pancreas in this patient who did have multiple antibiotic ALLERGIES with persistent fever and worsening of the white count infectious disease was consulted for fever and elevated white count patient did have mildly positive UA and chest x-ray has been negative for any pneumonia Review of Systems Positive point has been mentioned in the HPI rest of the systems are negative Past Medical History Past Medical History: Atrial Fibrillation, Asthma, Coronary Artery Disease (CAD), Chest Pain / Angina, COPD, CVA/TIA, Dementia, Fibromyalgia, GERD/Reflux, Hyperlipidemia, Hypertension, Memory Impairment, Osteoarthritis (OA), Pneumonia Additional Past Medical History / Comment(s): EARLY DEMENTIA WITH SOME SHORT TERM MEMORY LOSS, NEUROPATHY BILATERAL UPPER AND LOWER EXTREMITIES, CHRONIC BACK PAIN, DJD, CVA 2006, TIA 2007, BRONCHITIS, SINUS PROBLEMS AT TIMES, 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 Past Anesthesia/Blood Transfusion Reactions: Previous Problems w/ Anesthesia Additional Past Anesthesia/Blood Transfusion Reaction / Comm: difficulty waking in past. clausterphobia Past Psychological History: Anxiety, Depression Additional Psychological History / Comment(s): Pt lives with son right now with 1 cat. Pt uses a wheeled walker or a cane. Pt no longer drives, she takes the bus. She denies any suicidal thoughts/plans. Smoking Status: Current every day smoker Past Alcohol Use History: Occasional, Rare Additional Past Alcohol Use History / Comment(s): Started smoking at age 15 or 16 up to 2-1/2 packs per day and is currently down to 1ppd. Patient does give history of heavy alcohol abuse off and on in the past but had quit alcohol c ompletely 3 years ago. She does smoke marijuana. Patient lives in an apartment building with 4 other adults. She uses a cane for ambulation. Past Drug Use History: Marijuana Additional Drug Use History / Comment(s): Occasional marijuana use - Past Family History Mother Family Medical History: CVA/TIA Additional Family Medical History / Comment(s): Mother at age 73 from a brain stem stroke. Brother(s) Additional Family Medical History / Comment(s): Patient has 2 full brothers with no major medical problems. Patient does not have any sisters. Patient has 3 sons with no major medical problems. Father Family Medical History: Congestive Heart Failure (CHF), Myocardial Infarction (AR) Additional Family Medical History / Comment(s): Father at age 76 from a massive heart attack. Medications and Allergies Home Medications Medication Instructions Recorded Confirmed Type QUEtiapine [SEROquel] 25 mg PO HS 11/18/19 07/03/20 History Desvenlafaxine Succinate [Pristiq 25 mg PO DAILY 07/03/20 07/03/20 History ER] Desvenlafaxine Succinate [Pristiq 50 mg PO DAILY 07/03/20 07/03/20 History ER] Ibuprofen [Motrin] 600 mg PO Q8HR PRN 07/03/20 07/03/20 History Meclizine [Antivert] 25 mg PO TID PRN 07/03/20 07/03/20 History Metoprolol Tartrate 25 mg PO BID 07/03/20 07/03/20 History Pantoprazole [Protonix] 40 mg PO DAILY 07/03/20 07/03/20 History Pravastatin Sodium 80 mg PO HS 07/03/20 07/03/20 History hydroCHLOROthiazide 25 mg PO DAILY 07/03/20 07/03/20 History Allergies Allergy/AdvReac Type Severity Reaction Status Date / Time atorvastatin [From Lipitor] Allergy Unknown Verified 04/13/20 10:00 cephalexin monohydrate Allergy Rash/Hives Verified 04/13/20 10:00 [From Keflex] ciprofloxacin [From Cipro] Allergy Swelling Verified 04/13/20 10:00 latex Allergy Rash/Hives Verified 04/13/20 10:00 oxytetracycline Allergy Rash/Hives Verified 04/13/20 10:00 [From Terramycin] Penicillins Allergy Rash/Hives Verified 04/13/20 10:00 Sulfa (Sulfonamide Allergy Rash/Hives Verified 04/13/20 10:00 Antibiotics) Physical Exam Vitals: Vital Signs Temp Pulse Pulse Resp BP Pulse Ox 07/04/20 09:16 100 07/04/20 09:01 100 07/04/20 07:00 100.1 F H 104 H 18 98/57 94 L 07/04/20 02:45 99.4 F 101 H 98/64 95 07/03/20 23:47 61 18 07/03/20 20:36 104 H 07/03/20 20:26 108 H 98 07/03/20 19:53 61 18 07/03/20 19:28 98.2 F 61 18 123/62 96 07/03/20 16:03 80 07/03/20 15:48 80 Intake and Output 07/04/20 07/04/20 07/04/20 06:59 14:59 22:59 Intake Total 800 800 Balance 800 800 Intake: IV 800 800 Sodium Chloride 0.9% 1, 800 800 000 ml @ 100 mls/hr IV . Q10H [facility] Rx#:[id number] Other: Voiding Method Toilet # Voids 2 GENERAL DESCRIPTION: An elderly female lying in bed, no distress. No tachypnea or accessory muscle of respiration use. HEENT: Shows Pallor , no scleral icterus. Oral mucous membrane is dry. No pharyngeal erythema or thrush NECK: Trachea central, no thyromegaly. LUNGS: Unlabored breathing. Clear to auscultation anteriorly. No wheeze or crackle. HEART: S1, S2, regular rate and rhythm. No loud murmur ABDOMEN: Soft, epigastric tenderness , no guarding or rigidity, no organomegaly EXTREMITIES: No edema of feet. SKIN: No rash, no masses palpable. NEUROLOGICAL: The patient is awake, alert, oriented x3, mood and affect normal. Results CBC & Chem 7: 07/04/20 10:09 07/04/20 10:09 Labs: Abnormal Lab Results - Last 24 Hours (Table) 07/04/20 07/04/20 07/04/20 Range/Units 10:09 10:09 11:20 WBC 17.2 H (3.8-10.6) k/uL Neutrophils # 15.1 H (1.3-7.7) k/uL BUN 22 H (7-17) mg/dL Glucose 111 H (74-99) mg/dL Calcium 8.2 L (8.4-10.2) mg/dL AST 78 H (14-36) U/L ALT 100 H (4-34) U/L Alkaline Phosphatase 176 H (38-126) U/L Total Protein 5.6 L (6.3-8.2) g/dL Albumin 3.4 L (3.5-5.0) g/dL Urine Appearance Cloudy H (Clear) Urine Protein 1+ H (Negative) Urine Blood Large H (Negative) Urine Nitrite Positive H (Negative) Ur Leukocyte Esterase Moderate H (Negative) Urine RBC 14 H (0-5) /hpf Urine WBC 23 H (0-5) /hpf Urine Bacteria Moderate H (None) /hpf Urine Mucus Few H (None) /hpf Urine Opiates Screen (NotDetected) U Tricyclic Antidepress (NotDetected) 07/04/20 Range/Units 11:20 WBC (3.8-10.6) k/uL Neutrophils # (1.3-7.7) k/uL BUN (7-17) mg/dL Glucose (74-99) mg/dL Calcium (8.4-10.2) mg/dL AST (14-36) U/L ALT (4-34) U/L Alkaline Phosphatase (38-126) U/L Total Protein (6.3-8.2) g/dL Albumin (3.5-5.0) g/dL Urine Appearance (Clear) Urine Protein (Negative) Urine Blood (Negative) Urine Nitrite (Negative) Ur Leukocyte Esterase (Negative) Urine RBC (0-5) /hpf Urine WBC (0-5) /hpf Urine Bacteria (None) /hpf Urine Mucus (None) /hpf Urine Opiates Screen Detected H (NotDetected) U Tricyclic Antidepress Detected H (NotDetected) Assessment and Plan Assessment: 1- patient presented to hospital with sepsis in this patient would have a fever and elevated white count patients and has been predominantly pain in the epigastric area and features are suspicious for acute pancreatitis possibly rela debbi to alcoholism gallstone not entirely excluded in view of the dilated CBD seen on the CT of abdominal pelvis 2- Patient with multiple antibiotic ALLERGIES that would limit the number of antibiotic safe to use (1) Sepsis Current Visit: Yes Status: Acute Code(s): A41.9 - SEPSIS, UNSPECIFIED ORGANISM SNOMED Code(s): 90056620 (2) Pancreatitis Current Visit: Yes Status: Acute Code(s): K85.90 - ACUTE PANCREATITIS WITHOUT NECROSIS OR INFECTION, UNSP SNOMED Code(s): 43652075 Plan: 1- blood cultures 2 and check a CRP 2- we will add Azactam 2 g every 8 hours 3- check an ultrasound of the abdomin We will follow on clinical condition and cultures to further adjust medication if needed Thank you for this consultation will follow this patient with you Time with Patient: Greater than 30
[2020-07-04] MEDS: AZTREONAM 2 GM in SODIUM CHLORIDE 0.9% 100 ML IVPB SCH (23:35)
[2020-07-05] MEDS: SODIUM CHLORIDE 0.9% 1,000 ML IV SCH (05:43)
[2020-07-05] MEDS: HYDROmorphone 1 MG/ML 1 ML SYRINGE IVP PRN ×2 (07:38→16:10)
[2020-07-05] MEDS: amLODIPine 5 MG TAB PO SCH (07:39)
[2020-07-05] MEDS: APIXABAN 5 MG TAB PO SCH ×2 (07:39→20:11)
[2020-07-05] MEDS: MULTIVITAMINS, THERA 1 EACH TAB PO SCH (07:39)
[2020-07-05] MEDS: PANTOPRAZOLE 40 MG TABLET PO SCH (07:39)
[2020-07-05] MEDS: THIAMINE 100 MG TAB PO SCH ×2 (07:39→16:07)
[2020-07-05] MEDS: NICOTINE 21MG/24HR PATCH TRANSDERM SCH (07:40)
[2020-07-05] MEDS: AZTREONAM 2 GM in SODIUM CHLORIDE 0.9% 100 ML IVPB SCH ×2 (07:40→16:05)
--- NOTE | 2020-07-05 08:27 | US ---
EXAMINATION TYPE: US abdomen complete DATE OF EXAM: 07/05/2020 COMPARISON: NONE CLINICAL HISTORY: abd pain and fever ? cholecystitis. Abdominal pain,vomiting, cholecystectomy EXAM MEASUREMENTS: Liver Length: 17.8 cm Gallbladder Wall: Surgically absent CBD: 0.7 cm Spleen: 13.1 cm Right Kidney: 11.0 x 5.3 x 5.1 cm Left Kidney: 9.8 x 5.4 x 4.5 cm Technical limitations due to large amount of overlying bowel content Pancreas: Obscured by bowel gas Liver: appears wnl Gallbladder: Surgically absent Evidence for sonographic Gaines's sign: no CBD: wnl Spleen: upper limits of normal in size Right Kidney: cystic area = 3.6 x 3.2 x 3.4cm . Posterior wall enhancement is not identified. Monito ring with ultrasound can be performed. Left Kidney: no evidence of hydronephrosis Upper IVC: wnl Abd Aorta: Obscured by overlying bowel gas IMPRESSION: 1. Exam limited due to large amount of bowel gas. 2. Right renal cyst.
[2020-07-05 10:09] LABS: Basophils % (A) 0 %; Eosinophils % (A) 0 %; HCT 32.9 % (34.0-46.0); HGB 10.8 gm/dL (11.4-16.0); Lymphocytes # (A) 1.3 k/uL (1.0-4.8); Lymphocytes % (A) 12 %; MCH 28.6 pg (25.0-35.0); MCHC 32.6 g/dL (31.0-37.0); MCV 87.6 fL (80.0-100.0); Mean Platelet Volume 8.5; Monocytes # (A) 0.4 k/uL (0-1.0); Monocytes % (A) 4 %; Neutrophils # (A) 8.9 k/uL (1.3-7.7); Neutrophils % (A) 84 %; Platelet Count 155 k/uL (150-450); RBC 3.76 m/uL (3.80-5.40); RDW 13.4 % (11.5-15.5); WBC 10.7 k/uL (3.8-10.6)
[2020-07-05] MEDS: SYMBICORT 160-4.5 MCG INHALER INHALATION SCH ×2 (11:36→20:05)
[2020-07-05 14:08] LABS: Appearance,Urine Clear (Clear); Bacteria,Urine Rare /hpf; Bilirubin,Urine Negative (Negative); Blood,Urine Moderate (Negative); Color,Urine Yellow; Glucose,Urine (UA) Negative (Negative); Ketones,Urine Negative (Negative); Leukocyte Esterase,Urine Small (Negative); Mucus,Urine Rare /hpf; Nitrite,Urine Negative (Negative); Protein,Urine Trace (Negative); RBC,Urine 8 /hpf (0-5); Specific Gravity,Urine 1.013 (1.001-1.035); Squamous Epithelial Cell,Urine 1 /hpf (0-4); WBC,Urine 4 /hpf (0-5)
[2020-07-05] MEDS: PRAVASTATIN SODIUM 80 MG TAB PO SCH (20:11)
[2020-07-05] MEDS: QUEtiapine 25 MG TAB PO SCH (20:11)
[2020-07-05] MEDS: DESVENLAFAXINE SUCCINATE 50 MG TAB.ER.24H PO SCH (20:11)
[2020-07-05] MEDS: HYDROcodone/APAP 7.5-325MG 1 EACH TAB PO PRN (20:11)
--- NOTE | 2020-07-05 22:16 | PN ---
PROGRESS NOTE DATE OF SERVICE: 07/05/2020 REASON FOR FOLLOWUP: Fever. Possibly pancreatitis. INTERVAL HISTORY: The patient is currently afebrile. The patient is breathing comfortably. The patient denies having any chest pain or shortness of breath or cough. She is still complaining of pain to the upper abdominal area. Nausea but no vomiting and no diarrhea. PHYSICAL EXAMINATION: Blood pressure 108/75 with a pulse of 110, temperature 98.3. She is 95% on room air. General description is an elderly female up in the bed in no distress. RESPIRATORY SYSTEM: Unlabored breathing. Clear to auscultation anteriorly. HEART: S1, S2. Regular rate and rhythm. ABDOMEN: Soft. Tender in the epigastric area. No guarding or rigidity. EXTREMITIES: No edema of the feet. LABS: Hemoglobin 10.8, white count 10.7. Liver enzymes mildly elevated. DIAGNOSTIC IMPRESSION AND PLAN: Patient with a fever which is more likely secondary to the acute pancreatitis. Ultrasound did not show any dilatation of CBD. The patient does have MULTIPLE ANTIBIOTIC ALLERGIES. She is covered with Azactam; to continue. We will monitor clinical course closely. MMODL / IJN: [id number] /
--- NOTE | 2020-07-05 23:15 | P.PN ---
Subjective Progress Note Date: 07/05/20 Principal diagnosis: Acute severe abdominal pain, acute pancreatitis, mild leukocytosis, dementia, A. fib and COPD she 69-year-old female one of Dr. Bynum patient with past medical history of ankle abuse, hypertension and hyperlipidemia who presented to the emergency department on 822 severe abdominal pain with nausea patient lives at home with her son who has been moving out on after been sober for 3 years she went back to drink alcohol heavily for 2 days. Admission developed to have severe epigastric pain and right upper quadrant discomfort ended up coming to the emergency department with severe abdominal pain with nausea and vomiting no fever or chills. On presentation she had mildly dilated common duct and up seen gastroenterology her symptoms and enzymes are coming down significantly, surprisingly her urine culture came back positive for gram-negative bacillary patient is still on Aztreonam responding well to it her number have been improving she still require Dilaudid with switch her pain meds to oral still on nicotine patch for nicotine dependency and doing slightly better as well. Objective - Vital Signs Vital signs: Vital Signs Temp 99.9 F H 07/05/20 07:00 Pulse 65 07/05/20 07:00 Resp 20 07/05/20 07:00 BP 123/72 07/05/20 07:00 Pulse Ox 97 07/05/20 07:00 Intake & Output 07/04/20 07/05/20 07/05/20 18:59 06:59 18:59 Intake Total 800 Balance 800 Intake: IV 800 Sodium Chloride 0.9% 1, 800 000 ml @ 100 mls/hr IV . Q10H [facility] Rx#:[id number] Other: Voiding Method Toilet - Exam Review of system: CONSTITUTIONAL: Well-developed no acute respiratory distress. EYES: No icterus sclerae, no conjunctivitis. EARS, NOSE, MOUTH, THROAT, and FACE: No sore throat, lymphadenopathy, carotid bruits or deformity. RESPIRATORY: Mild shortness of breath wheezes. CARDIOVASCULAR: No CP, Palpitation, PND, Orthopnea, or angina. GASTROINTESTINAL: Positive abdominal pain with nausea no vomiting decrease appetite. GENITOURINARY: Negative for Hematuria or UTI, no kidney stones. INTEGUMENT/BREAST: Negative for any muscular injury with mild osteoarthritis.. HEMATOLOGIC/LYMPHATIC: Negative for bleed or purpura. MUSCULOSKELTAL: Negative for Myalgia or arthralgia. NEURLOGICAL: No LOC, Sz or syncope, blurred vision dizziness or abnormality.. BEHAVIORAL/PSYCH: Negative. ENDOCRINE: Negative. Physical exam: General Appearance: Alert, cooperative, no distress, appears stated age. Neck HEENT: Supple, no lymphadenopathy, no thyroid enlargement, no carotid bruits. Lungs: Decreased breath some bilateral rhonchi no crackles or wheezes. Chest Wall: Decrease expansion with deep inspiration no tenderness and no def ormity was found on exam, no costochondral pain or discomfort. Heart: Regular rate and rhythm, S1, S2 normal, no murmur, rub or gallop. Back: Symmetric, no curvature, ROM normal, no CVA tenderness. Abdomen: Soft, non-tender, bowel sounds active all four quadrants, no masses, no organomegaly. Discomfort in the right upper quadrant midepigastric is a lot better. Extremities: Extremities normal, atraumatic, no cyanosis or edema. Pulses: 2+ and symmetric. Skin: Skin color, texture, tugor normal, no rashes or lesions. Neurologic: Alert oriented x3 cranial nerves II through XII intact, no motor def icit, no abnormal balance or gait. - Labs CBC & Chem 7: 07/05/20 09:12 07/04/20 10:09 Labs: Abnormal Lab Results - Last 24 Hours (Table) 07/04/20 07/04/20 07/04/20 Range/Units 10:09 10:09 11:20 WBC 17.2 H (3.8-10.6) k/uL Neutrophils # 15.1 H (1.3-7.7) k/uL BUN 22 H (7-17) mg/dL Glucose 111 H (74-99) mg/dL Calcium 8.2 L (8.4-10.2) mg/dL AST 78 H (14-36) U/L ALT 100 H (4-34) U/L Alkaline Phosphatase 176 H (38-126) U/L C-Reactive Protein (<10.0) mg/L Total Protein 5.6 L (6.3-8.2) g/dL Albumin 3.4 L (3.5-5.0) g/dL Urine Appearance Cloudy H (Clear) Urine Protein 1+ H (Negative) Urine Blood Large H (Negative) Urine Nitrite Positive H (Negative) Ur Leukocyte Esterase Moderate H (Negative) Urine RBC 14 H (0-5) /hpf Urine WBC 23 H (0-5) /hpf Urine Bacteria Moderate H (None) /hpf Urine Mucus Few H (None) /hpf Urine Opiates Screen (NotDetected) U Tricyclic Antidepress (NotDetected) 07/04/20 07/04/20 Range/Units 11:20 15:57 WBC (3.8-10.6) k/uL Neutrophils # (1.3-7.7) k/uL BUN (7-17) mg/dL Glucose (74-99) mg/dL Calcium (8.4-10.2) mg/dL AST (14-36) U/L ALT (4-34) U/L Alkaline Phosphatase (38-126) U/L C-Reactive Protein 296.4 H (<10.0) mg/L Total Protein (6.3-8.2) g/dL Albumin (3.5-5.0) g/dL Urine Appearance (Clear) Urine Protein (Negative) Urine Blood (Negative) Urine Nitrite (Negative) Ur Leukocyte Esterase (Negative) Urine RBC (0-5) /hpf Urine WBC (0-5) /hpf Urine Bacteria (None) /hpf Urine Mucus (None) /hpf Urine Opiates Screen Detected H (NotDetected) U Tricyclic Antidepress Detected H (NotDetected) Microbiology - Last 24 Hours (Table) 07/04/20 11:20 Urine Culture - Preliminary Urine,Voided Assessment and Plan Assessment: 1 acute abdominal pain: Secondary to acute pancreatitis slightly better. 2 acute pancreatitis: Most likely from alcoholism her numbers are much better no need for any intervention or ERCP. 3 mild leukocytosis and sepsis: With positive urine test patient is still on IV antibiotics seen infectious disease temperature is down. 4 A. fib: Pulse rate is under well control and still on Eliquis. 5 dementia: On conservative management no medication as needed. 6 COPD with mild exacerbation: We'll continue Pulmicort and DuoNeb doing slightly better. 7 anxiety and depression: On lorazepam, Pristiq, and Seroquel. 8 history of coronary artery disease: No chest pain or angina currently. 9 history of alcoholic hepatitis and necrotic liver: Recovering nicely. 10 UTI with sepsis: On IV antibiotics. 11 GI prophylaxis: On PPI CODE STATUS: Full code. Discharge planning: Possible discharge home tomorrow.
[2020-07-06] MEDS: AZTREONAM 2 GM in SODIUM CHLORIDE 0.9% 100 ML IVPB SCH ×2 (00:28→07:59)
[2020-07-06] MEDS: SODIUM CHLORIDE 0.9% 1,000 ML IV SCH (00:32)
--- NOTE | 2020-07-06 06:50 | XR ---
EXAMINATION TYPE: XR chest 2V DATE OF EXAM: 07/06/2020 COMPARISON: Chest x-ray [address] chest August 07, 2019. HISTORY: Fever. TECHNIQUE: Frontal and lateral views of the chest are obtained. FINDINGS: Background Chronic emphysematous and scattered parenchymal fibrotic change redemonstrated. There is no new suspicious focal air space opacity, pleural effusion, or pneumothorax seen bilaterall y. The cardiac silhouette size is stable and upper limits of normal. The osseous structures are in tact. IMPRESSION: Chronic changes without new suspicious acute pulmonary process. No significant change fr om most recent x-ray.
[2020-07-06 06:55] LABS: Basophils % (A) 0 %; Eosinophils % (A) 0 %; HCT 33.7 % (34.0-46.0); HGB 10.9 gm/dL (11.4-16.0); Lymphocytes # (A) 1.2 k/uL (1.0-4.8); Lymphocytes % (A) 15 %; MCH 28.2 pg (25.0-35.0); MCHC 32.4 g/dL (31.0-37.0); MCV 87.3 fL (80.0-100.0); Mean Platelet Volume 8.4; Monocytes # (A) 0.3 k/uL (0-1.0); Monocytes % (A) 3 %; Neutrophils # (A) 6.9 k/uL (1.3-7.7); Neutrophils % (A) 80 %; Platelet Count 133 k/uL (150-450); RBC 3.86 m/uL (3.80-5.40); RDW 13.6 % (11.5-15.5); WBC 8.6 k/uL (3.8-10.6)
[2020-07-06 07:09] LABS: ALT 52 U/L (4-34); AST 32 U/L (14-36); African American GFR (CKD) >90 (>60 ml/min/1.73 sqM); Albumin 3.5 g/dL (3.5-5.0); Alkaline Phosphatase 149 U/L (38-126); Amylase <30 U/L (30-110); Anion Gap 6 mmol/L; Blood Urea Nitrogen 10 mg/dL (7-17); Calcium 8.7 mg/dL (8.4-10.2); Carbon Dioxide 25 mmol/L (22-30); Chloride 104 mmol/L (98-107); Glucose 105 mg/dL (74-99); Non-African American GFR(CKD) >90 (>60 ml/min/1.73 sqM); Potassium 3.5 mmol/L (3.5-5.1); Sodium 135 mmol/L (137-145); Total Bilirubin 0.7 mg/dL (0.2-1.3); Total Protein 5.9 g/dL (6.3-8.2)
[2020-07-06 07:23] LABS: C Reactive Protein 198.3 mg/L (<10.0)
[2020-07-06] MEDS: APIXABAN 5 MG TAB PO SCH ×2 (08:00→20:25)
[2020-07-06] MEDS: HYDROcodone/APAP 7.5-325MG 1 EACH TAB PO PRN ×3 (08:00→20:25)
[2020-07-06] MEDS: amLODIPine 5 MG TAB PO SCH (08:00)
[2020-07-06] MEDS: PANTOPRAZOLE 40 MG TABLET PO SCH (08:01)
[2020-07-06] MEDS: MULTIVITAMINS, THERA 1 EACH TAB PO SCH (08:01)
[2020-07-06] MEDS: THIAMINE 100 MG TAB PO SCH ×2 (08:01→16:26)
[2020-07-06] MEDS: NICOTINE 21MG/24HR PATCH TRANSDERM SCH (08:01)
[2020-07-06] MEDS: SYMBICORT 160-4.5 MCG INHALER INHALATION SCH ×2 (08:11→21:20)
[2020-07-06] MEDS ORDERED: IOPAMIDOL CONTRAST (ORAL USE) VIAL PO PRN (09:14)
[2020-07-06] MEDS: IOPAMIDOL CONTRAST (ORAL USE) VIAL PO PRN ×2 (09:26→10:38)
--- NOTE | 2020-07-06 11:15 | P.PN ---
Subjective Progress Note Date: 07/05/20 Principal diagnosis: Acute pancreatitis, elevated liver enzymes, abnormal liver disease Patient seen lying in bed, abdominal pain somewhat improved today. She is having some loose bowel movements but his likely related to antibiotic therapy. Objective - Vital Signs Vital signs: Vital Signs Temp 99.9 F H 07/05/20 07:00 Pulse 65 07/05/20 07:42 Resp 20 07/05/20 07:42 BP 123/72 07/05/20 07:00 Pulse Ox 97 07/05/20 07:00 Intake & Output 07/04/20 07/05/20 07/05/20 18:59 06:59 18:59 Intake Total 800 Balance 800 Intake: IV 800 Sodium Chloride 0.9% 1, 800 000 ml @ 100 mls/hr IV . Q10H [facility] Rx#:[id number] Other: Voiding Method Toilet Toilet - Exam On physical examination, patient appears comfortable in no apparent distress. HEAD: Normocephalic, atraumatic. EYES: No scleral icterus. No conjunctival injection. MOUTH: No lesions, tongue midline. NECK: Trachea midline, no gross abnormalities. ABDOMEN: Soft,. Bowel sounds are positive. No organomegaly. No guarding or rigidity. EXTREMITIES: No pedal edema. SKIN: No rashes, no jaundice. NEUROLOGIC: Alert and oriented x3. No focal deficits. - Labs CBC & Chem 7: 07/06/20 06:27 07/06/20 06:27 Labs: Abnormal Lab Results - Last 24 Hours (Table) 07/04/20 07/05/20 07/05/20 Range/Units 15:57 09:12 13:23 WBC 10.7 H (3.8-10.6) k/uL RBC 3.76 L (3.80-5.40) m/uL Hgb 10.8 L (11.4-16.0) gm/dL Hct 32.9 L (34.0-46.0) % Neutrophils # 8.9 H (1.3-7.7) k/uL C-Reactive Protein 296.4 H (<10.0) mg/L Urine Protein Trace H (Negative) Urine Blood Moderate H (Negative) Ur Leukocyte Esterase Small H (Negative) Urine RBC 8 H (0-5) /hpf Urine Bacteria Rare H (None) /hpf Urine Mucus Rare H (None) /hpf Microbiology - Last 24 Hours (Table) 07/04/20 11:20 Urine Culture - Preliminary Urine,Voided Assessment and Plan (1) Pancreatitis Narrative/Plan: 69-year-old female presenting for abdominal pain in the setting of heavy alcohol abuse with suspicion for acute alcoholic related pancreatitis. Overall abdominal pain improving patient did have some loose stool today. Elevation in liver enzymes likely related to chronic underlying alcoholic liver disease. Current Visit: Yes Status: Acute Code(s): K85.90 - ACUTE PANCREATITIS WITHOUT NECROSIS OR INFECTION, UNSP SNOMED Code(s): 57761807 (2) Elevated liver enzymes Current Visit: Yes Status: Acute Code(s): R74.8 - ABNORMAL LEVELS OF OTHER SERUM ENZYMES SNOMED Code(s): 002620851 (3) Abdominal pain Current Visit: Yes Status: Acute Code(s): R10.9 - UNSPECIFIED ABDOMINAL PAIN SNOMED Code(s): 91613042 Plan: Supportive care Okay to advance to low fiber low fat diet as tolerated Continue monitor BMP, CBC, LFTs Alcohol abstinence Continue antibiotic therapy as per recommendations by infectious disease service No endoscopic evaluation planned at this time Thank you for allowing us to participate in the care of the patient
--- NOTE | 2020-07-06 11:54 | P.GSCN ---
History of Present Illness Consult date: 07/06/20 Reason for Consult: abdominal pain History of present illness: The patient was admitted to the hospital with acute abdominal pain from pancreatitis. That pain is getting better. She was tolerating a diet. This morning she noticed some sharp pain in the left upper quadrant radiating through to the back. Its not present now. She has not had nausea or vomiting today. She also has chronic right lower quadrant pain that is been present many years. It hurts to touch. The pain is present all the time. It does not seem to change with activity or eating. No change in pain with coughing or sneezing.She tends to have chronic diarrhea. She had some substantial diarrhea last night x1. In the past she has had blood in the stool and urine. Last night she did not notice any blood in the stool. She may have a history of ulcer disease. S he cannot remember she says due to her dementia. Its been many years since any sort of colonoscopy was performed. There is no family history of GI malignancy or inflammatory bowel disease. 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 Past Anesthesia/Blood Transfusion Reactions: Previous Problems w/ Anesthesia Additional Past Anesthesia/Blood Transfusion Reaction / Comm: difficulty waking in past. clausterphobia Past Psychological History: Anxiety, Depression Additional Psychological History / Comment(s): Pt lives with son right now with 1 cat. Pt uses a wheeled walker or a cane. Pt no longer drives, she takes the bus. She denies any suicidal thoughts/plans. Smoking Status: Current every day smoker Past Alcohol Use History: Occasional, Rare Additional Past Alcohol Use History / Comment(s): Started smoking at age 15 or 16 up to 2-1/2 packs per day and is currently down to 1ppd. Patient does give history of heavy alcohol abuse off and on in the past but had quit alcohol completely 3 years ago. She does smoke marijuana. Patient lives in an apartment building with 4 other adults. She uses a cane for ambulation. Past Drug Use History: Marijuana Additional Drug Use History / Comment(s): Occasional marijuana use - Past Family History Mother Family Medical History: CVA/TIA Additional Family Medical History / Comment(s): Mother at age 73 from a brain stem stroke. Brother(s) Additional Family Medical History / Comment(s): Patient has 2 full brothers with no major medical problems. Patient does not have any sisters. Patient has 3 sons with no major medical problems. Father Family Medical History: Congestive Heart Failure (CHF), Myocardial Infarction ([place]) Additional Family Medical History / Comment(s): Father at age 76 from a massive heart attack. Medications and Allergies Home Medications Medication Instructions Recorded Confirmed Type QUEtiapine [SEROquel] 25 mg PO HS 11/18/19 07/03/20 History Desvenlafaxine Succinate [Pristiq 25 mg PO DAILY 07/03/20 07/03/20 History ER] Desvenlafaxine Succinate [Pristiq 50 mg PO DAILY 07/03/20 07/03/20 History ER] Ibuprofen [Motrin] 600 mg PO Q8HR PRN 07/03/20 07/03/20 History Meclizine [Antivert] 25 mg PO TID PRN 07/03/20 07/03/20 History Metoprolol Tartrate 25 mg PO BID 07/03/20 07/03/20 History Pantoprazole [Protonix] 40 mg PO DAILY 07/03/20 07/03/20 History Pravastatin Sodium 80 mg PO HS 07/03/20 07/03/20 History hydroCHLOROthiazide 25 mg PO DAILY 07/03/20 07/03/20 History Allergies Allergy/AdvReac Type Severity Reaction Status Date / Time atorvastatin [From Lipitor] Allergy Unknown Verified 04/13/20 10:00 cephalexin monohydrate Allergy Rash/Hives Verified 04/13/20 10:00 [From Keflex] ciprofloxacin [From Cipro] Allergy Swelling Verified 04/13/20 10:00 latex Allergy Rash/Hives Verified 04/13/20 10:00 oxytetracycline Allergy Rash/Hives Verified 04/13/20 10:00 [From Terramycin] Penicillins Allergy Rash/Hives Verified 04/13/20 10:00 Sulfa (Sulfonamide Allergy Rash/Hives Verified 04/13/20 10:00 Antibiotics) Surgical - Exam Osteopathic Statement: *. No significant issues noted on an osteopathic structural exam other than those noted in the History and Physical/Consult. Vital Signs Temp Pulse Resp BP Pulse Ox 100.8 F H 109 H 18 133/81 95 07/03/20 02:33 07/03/20 02:33 07/03/20 02:33 07/03/20 02:33 07/03/20 02:33 - General well developed, well nourished, no distress - Eyes normal ocular movement - Neck trachea midline - Cardiovascular Rhythm: regular - Abdomen Abdomen: soft, tender, bowel sounds (Very mild tenderness to deep palpation in the left upper quadrant and right lower quadrant), surgical scars (right subcostal and low midline) Hernia: no umbilical Results - Labs 07/06/20 06:27 07/06/20 06:27 Abnormal Lab Results - Last 24 Hours (Table) 07/05/20 07/05/20 07/06/20 Range/Units 13:23 21:26 06:27 Hgb (11.4-16.0) gm/dL Hct (34.0-46.0) % Plt Count (150-450) k/uL Sodium 135 L (137-145) mmol/L Glucose 105 H (74-99) mg/dL ALT 52 H (4-34) U/L Alkaline Phosphatase 149 H (38-126) U/L C-Reactive Protein 182.3 H 198.3 H (<10.0) mg/L Total Protein 5.9 L (6.3-8.2) g/dL Amylase <30 L (30-110) U/L Urine Protein Trace H (Negative) Urine Blood Moderate H (Negative) Ur Leukocyte Esterase Small H (Negative) Urine RBC 8 H (0-5) /hpf Urine Bacteria Rare H (None) /hpf Urine Mucus Rare H (None) /hpf 07/06/20 Range/Units 06:27 Hgb 10.9 L (11.4-16.0) gm/dL Hct 33.7 L (34.0-46.0) % Plt Count 133 L (150-450) k/uL Sodium (137-145) mmol/L Glucose (74-99) mg/dL ALT (4-34) U/L Alkaline Phosphatase (38-126) U/L C-Reactive Protein (<10.0) mg/L Total Protein (6.3-8.2) g/dL Amylase (30-110) U/L Urine Protein (Negative) Urine Blood (Negative) Ur Leukocyte Esterase (Negative) Urine RBC (0-5) /hpf Urine Bacteria (None) /hpf Urine Mucus (None) /hpf Microbiology - Last 24 Hours (Table) 07/04/20 11:20 Urine Culture - Preliminary Urine,Voided Gram Neg Bacilli 07/04/20 15:57 Blood Culture - Preliminary Blood No Growth after 24 hours Diabetes panel 07/06/20 Range/Units 06:27 Sodium 135 L (137-145) mmol/L Potassium 3.5 (3.5-5.1) mmol/L Chloride 104 (98-107) mmol/L Carbon Dioxide 25 (22-30) mmol/L BUN 10 (7-17) mg/dL Creatinine 0.61 (0.52-1.04) mg/dL Glucose 105 H (74-99) mg/dL Calcium 8.7 (8.4-10.2) mg/dL AST 32 (14-36) U/L ALT 52 H (4-34) U/L Alkaline Phosphatase 149 H (38-126) U/L Total Protein 5.9 L (6.3-8.2) g/dL Albumin 3.5 (3.5-5.0) g/dL Calcium panel 07/06/20 Range/Units 06:27 Calcium 8.7 (8.4-10.2) mg/dL Albumin 3.5 (3.5-5.0) g/dL Pituitary panel 07/06/20 Range/Units 06:27 Sodium 135 L (137-145) mmol/L Potassium 3.5 (3.5-5.1) mmol/L Chloride 104 (98-107) mmol/L Carbon Dioxide 25 (22-30) mmol/L BUN 10 (7-17) mg/dL Creatinine 0.61 (0.52-1.04) mg/dL Glucose 105 H (74-99) mg/dL Calcium 8.7 (8.4-10.2) mg/dL Adrenal panel 07/06/20 Range/Units 06:27 Sodium 135 L (137-145) mmol/L Potassium 3.5 (3.5-5.1) mmol/L Chloride 104 (98-107) mmol/L Carbon Dioxide 25 (22-30) mmol/L BUN 10 (7-17) mg/dL Creatinine 0.61 (0.52-1.04) mg/dL Glucose 105 H (74-99) mg/dL Calcium 8.7 (8.4-10.2) mg/dL Total Bilirubin 0.7 (0.2-1.3) mg/dL AST 32 (14-36) U/L ALT 52 H (4-34) U/L Alkaline Phosphatase 149 H (38-126) U/L Total Protein 5.9 L (6.3-8.2) g/dL Albumin 3.5 (3.5-5.0) g/dL - Imaging CT scan - abdomen: report reviewed Assessment and Plan (1) Abdominal pain Current Visit: Yes Status: Acute Code(s): R10.9 - UNSPECIFIED ABDOMINAL PAIN SNOMED Code(s): 10950842 (2) Pancreatitis Current Visit: Yes Status: Acute Code(s): K85.90 - ACUTE PANCREATITIS WITHOUT NECROSIS OR INFECTION, UNSP SNOMED Code(s): 62532727 Plan: The pancreatitis seems to be resolving. The left upper quadrant pain may be a sequelae of the pancreatitis. I would recommend low-fat diet, alcohol cessation, proton pump inhibitor. If the pain persists more than 2 weeks I recommend an EGD to rule out ulcer disease. The right lower quadrant pain is chronic. I personally reviewed the CT scan and did not see any evidence of hernia or inflammatory change. She does have chronic diarrhea and it has been many years since a colonoscopy. I think she be a candidate for an outpatient colonoscopy. I do not see any surgical cause for the pain in the right lower quadrant however. I will follow-up as needed.
--- NOTE | 2020-07-06 11:54 | CT ---
EXAMINATION TYPE: CT abdomen pelvis w con DATE OF EXAM: 07/06/2020 HISTORY: Abdominal pain not further specified, pancreatitis CT DLP: 1633.1mGycm Automated Exposure Control for Dose Reduction was Utilized. CONTRAST: CT scan of the abdomen and pelvis is performed with IV Contrast, patient injected with 100 ml mL of I sovue 300. COMPARISON: CT abdomen and pelvis 3 days ago and older studies FINDINGS: LUNG BASES: New Tiny bilateral pleural effusions. Mild bibasilar linear atelectasis redemonstrated. LIVER/GB: Stable heterogeneous 3.6 x 2.8 cm slightly hyperdense lesion right hepatic dome that become s isodense on delayed phase images from most recent CT not clearly seen on older CTs. Gallbladder red emonstrated surgically absent.. Mild extrahepatic biliary dilatation up to 12 mm on image 45 with gra dual tapering. This is improved along with improving central intrahepatic biliary dilatation on curre nt study. PANCREAS: Pancreas redemonstrates mild generalized atrophy without new surrounding inflammatory nguyen e or focal fluid collection. No significant change from prior studies. No definitive areas of nonenha ncement. No ductal dilatation. SPLEEN: No significant abnormality is seen. ADRENALS: No significant abnormality is seen. KIDNEYS: Symmetric cortical medullary uptake and excretion without hydronephrosis seen bilaterally. S imple appearing 3.4 cm thin-walled cyst laterally midpole of the right kidney axial image 38 redemons trated. Cortical thinning upper pole level left kidney redemonstrated. BOWEL: Oral contrast does not reach level of terminal ileum makes evaluation of distal ball slightly suboptimal. Small bowel feces sign terminal ileum. No suspicious small bowel dilatation. Findings con sistent with delayed passage of ingested material into colonic level. Mild wall thickening in the lef t and sigmoid colon through the rectum. Finding favored on the basis of poor distention as no surroun ding or suspicious new fat stranding noted. Correlate clinically. Occasional sigmoid colonic divertic zari. No CT evidence for acute diverticulitis. UTERUS/ADNEXA: Uterus surgically absent or markedly atrophic. LYMPH NODES: No greater than 1cm abdominal or pelvic lymph nodes are appreciated. OSSEOUS STRUCTURES: Slight S-shaped scoliotic curvature. Multilevel spondylosis spine. Facet arthropa thy lower lumbar levels. OTHER: Ukan-[id number] mixed plaque of the abdominal aorta extends into branch vessels. IMPRESSION: 1. No CT evidence for complication related to acute pancreatitis. No new significant surrounding fat stranding or inflammatory change. 2. Improving mild to moderate central intrahepatic and extra hepatic biliary dilatation noted. Etiolo gy uncertain. 3. There is new peripheral 3.6 cm area of hyperdensity or enhancement relative to remainder of liver in the periphery right hepatic lobe from older CTs, differential includes transient hepatic attenuati on difference or new liver lesion such as FNH or hepatic adenoma. Nonemergent liver protocol contrast -enhanced MRI follow-up is advised. 4. Possible mild distal uncomplicated acute colitis though favor product of poor distention, correlat e clinically.
--- NOTE | 2020-07-06 14:41 | P.PN ---
Subjective Progress Note Date: 07/06/20 Principal diagnosis: Acute pancreatitis, elevated liver enzymes, abnormal liver disease The patient was seen and examined today. She complains of right lower quadrant pain which seems to be worsening. Patient states her epigastric pain has improved. She denies any nausea or vomiting. She does state she has had some diarrhea last evening. She is currently receiving antibiotics for urinary tract infection. Objective - Vital Signs Vital signs: Vital Signs Temp 99.2 F 07/06/20 07:00 Pulse 110 H 07/06/20 07:00 Resp 18 07/06/20 07:00 BP 158/79 07/06/20 07:00 Pulse Ox 96 07/06/20 07:00 Intake & Output 07/05/20 07/06/20 07/06/20 18:59 06:59 18:59 Intake Total 1300 100 Output Total 350 Balance -350 1300 100 Intake: IV 800 Sodium Chloride 0.9% 1, 800 000 ml @ 100 mls/hr IV . Q10H [facility] Rx#:[id number] Intake, IV Titration 200 Amount Aztreonam 2 gm In Sodium 200 Chloride 0.9% 100 ml @ 33 .3 mls/hr IVPB Q8HR [facility] Rx#:[id number] Oral 300 100 Output: Urine 350 Other: Voiding Method Toilet Toilet # Voids 1 2 3 # Bowel Movements 1 1 - Exam On physical examination, patient appears comfortable in no apparent distress. HEAD: Normocephalic, atraumatic. EYES: No scleral icterus. No conjunctival injection. MOUTH: No lesions, tongue midline. NECK: Trachea midline, no gross abnormalities. ABDOMEN: Soft,. Bowel sounds are positive. No organomegaly. No guarding or rigidity. EXTREMITIES: No pedal edema. SKIN: No rashes, no jaundice. NEUROLOGIC: Alert and oriented x3. No focal deficits. - Labs CBC & Chem 7: 07/06/20 06:27 07/06/20 06:27 Labs: Abnormal Lab Results - Last 24 Hours (Table) 07/05/20 07/05/20 07/06/20 Range/Units 21:26 21:26 06:27 Hgb (11.4-16.0) gm/dL Hct (34.0-46.0) % Plt Count (150-450) k/uL Sodium 135 L (137-145) mmol/L Glucose 105 H (74-99) mg/dL ALT 52 H (4-34) U/L Alkaline Phosphatase 149 H (38-126) U/L C-Reactive Protein 182.3 H 198.3 H (<10.0) mg/L Total Protein 5.9 L (6.3-8.2) g/dL Amylase <30 L (30-110) U/L Procalcitonin 0.79 H (0.02-0.09) ng/mL 07/06/20 Range/Units 06:27 Hgb 10.9 L (11.4-16.0) gm/dL Hct 33.7 L (34.0-46.0) % Plt Count 133 L (150-450) k/uL Sodium (137-145) mmol/L Glucose (74-99) mg/dL ALT (4-34) U/L Alkaline Phosphatase (38-126) U/L C-Reactive Protein (<10.0) mg/L Total Protein (6.3-8.2) g/dL Amylase (30-110) U/L Procalcitonin (0.02-0.09) ng/mL Microbiology - Last 24 Hours (Table) 07/04/20 11:20 Urine Culture - Preliminary Urine,Voided Gram Neg Bacilli 07/04/20 15:57 Blood Culture - Preliminary Blood No Growth after 24 hours Assessment and Plan Assessment: 1. Pancreatitis She is a 69-year-old female presenting for abdominal pain in the setting of heavy alcohol abuse with suspicion for acute alcoholic related pancreatitis. Overall abdominal pain improving patient did have some loose stools yesterday and today. Elevation liver enzymes likely related to chronic underlying alcoholic liver disease. 2. Elevated liver enzymes 3. Abdominal pain 4. Diarrhea Plan: Supportive care Okay to advance to low fiber low fat diet as tolerated Continue monitor BMP, CBC, LFTs Alcohol abstinence Continue antibiotic therapy as per recommendations by infectious disease service Obtain C. diff stool studies, if negative may give Imodium as needed for diarrhea which is likely that effect from antibiotics No endoscopic evaluation planned at this time Patient to follow-up with GI services and can be reevaluated in 6-8 weeks consideration of possible MRI of the liver. Thank you for allowing us to participate in the care of the patient The impression and plan of care has been dictated as directed. Dr. Amaro I performed a history and examination of this patient, discussed the same with the dictator. I agree with the dictator's note ,documented as a scribe. Any additional findings or plans will be noted.
--- NOTE | 2020-07-06 15:42 | PN ---
PROGRESS NOTE DATE OF SERVICE: 07/06/2020 REASON FOR FOLLOWUP: Fever, possible abdominal source. INTERVAL HISTORY: Patient did spike another fever 102.6 last night. The patient did have blood cultures done which are currently pending. The patient has been complaining of more pain in the right upper quadrant area. No nausea, vomiting; however, did have diarrhea with 2 loose stools this morning. PHYSICAL EXAMINATION: Blood pressure 146/75 with a pulse of 68, temperature 98.8, she is 97% on room air. General description is an elderly female, lying in bed in no distress. RESPIRATORY SYSTEM: Unlabored breathing, clear to auscultation anteriorly. HEART: S1, S2. Regular rate and rhythm. ABDOMEN: Soft, tender right upper quadrant area. Multiple positive extremities: No edema of the feet. LABS: Hemoglobin is 10.3, white count 8.7, BUN of 10, creatinine 0.61. CRP slightly elevated because of elevated urine showing a Gram-negative. The patient did have a abdominal and pelvis CT with no evidence of acute pancreatitis with some abnormality in the liver, questionable abscess. DIAGNOSTIC IMPRESSION AND PLAN: Patient with a fever with abnormality seen in the liver, questionable abscess and evidence of underlying colitis with fever despite being on Azactam. Antibiotic will be broadened to meropenem 1 g q.8h as the patient did have multiple antibiotic allergies and clinical course will be monitored closely. CT will be reviewed with radiologist. DANAY / JESSICA: [id number] /
[2020-07-06] MEDS: MEROPENEM 1 GM in SODIUM CHLORIDE 0.9% 100 ML IVPB SCH ×2 (16:17→23:30)
[2020-07-06] MEDS: QUEtiapine 25 MG TAB PO SCH (20:25)
[2020-07-06] MEDS: DESVENLAFAXINE SUCCINATE 50 MG TAB.ER.24H PO SCH (20:25)
[2020-07-06] MEDS: PRAVASTATIN SODIUM 80 MG TAB PO SCH (20:25)
[2020-07-07] MEDS: SODIUM CHLORIDE 0.9% 1,000 ML IV SCH (01:32)
[2020-07-07] MEDS: HYDROcodone/APAP 7.5-325MG 1 EACH TAB PO PRN ×3 (01:32→23:37)
[2020-07-07] MEDS: amLODIPine 5 MG TAB PO SCH (07:46)
[2020-07-07] MEDS: PANTOPRAZOLE 40 MG TABLET PO SCH (07:46)
[2020-07-07] MEDS: NICOTINE 21MG/24HR PATCH TRANSDERM SCH (07:46)
[2020-07-07] MEDS: APIXABAN 5 MG TAB PO SCH ×2 (07:47→21:21)
[2020-07-07] MEDS: MULTIVITAMINS, THERA 1 EACH TAB PO SCH (07:47)
[2020-07-07] MEDS: MEROPENEM 1 GM in SODIUM CHLORIDE 0.9% 100 ML IVPB SCH (07:47)
[2020-07-07] MEDS: THIAMINE 100 MG TAB PO SCH ×2 (07:47→16:31)
[2020-07-07 09:03] LABS: Basophils % (A) 0 %; Eosinophils % (A) 0 %; HCT 35.6 % (34.0-46.0); HGB 11.2 gm/dL (11.4-16.0); Lymphocytes # (A) 1.4 k/uL (1.0-4.8); Lymphocytes % (A) 23 %; MCH 27.8 pg (25.0-35.0); MCHC 31.6 g/dL (31.0-37.0); MCV 87.9 fL (80.0-100.0); Mean Platelet Volume 8.7; Monocytes # (A) 0.4 k/uL (0-1.0); Monocytes % (A) 6 %; Neutrophils # (A) 4.3 k/uL (1.3-7.7); Neutrophils % (A) 69 %; Platelet Count 159 k/uL (150-450); RBC 4.05 m/uL (3.80-5.40); RDW 13.6 % (11.5-15.5); WBC 6.2 k/uL (3.8-10.6)
[2020-07-07] MEDS: SYMBICORT 160-4.5 MCG INHALER INHALATION SCH ×2 (09:17→19:37)
[2020-07-07 09:20] LABS: ALT 39 U/L (4-34); AST 25 U/L (14-36); African American GFR (CKD) >90 (>60 ml/min/1.73 sqM); Albumin 3.1 g/dL (3.5-5.0); Alkaline Phosphatase 120 U/L (38-126); Anion Gap 3 mmol/L; Blood Urea Nitrogen 10 mg/dL (7-17); Calcium 8.3 mg/dL (8.4-10.2); Carbon Dioxide 29 mmol/L (22-30); Chloride 107 mmol/L (98-107); Glucose 105 mg/dL (74-99); Non-African American GFR(CKD) >90 (>60 ml/min/1.73 sqM); Potassium 3.7 mmol/L (3.5-5.1); Sodium 139 mmol/L (137-145); Total Bilirubin 0.4 mg/dL (0.2-1.3); Total Protein 5.3 g/dL (6.3-8.2)
--- NOTE | 2020-07-07 09:30 | P.DS ---
Providers Date of admission: 07/03/20 05:53 Expected date of discharge: 07/08/20 Attending physician: Melvina Dodge Consults: 07/03/20 05:50 Consult Physician Routine Consulting Provider: Ewa Christianson Consult Reason/Comments: abdominal pain, biliary dilation, pancreatitis Do you want consulting provider notified?: Yes 07/04/20 10:47 Consult Physician Routine Consulting Provider: Mary Gilbert Consult Reason/Comments: FUO, elevated wbc Do you want consulting provider notified?: Yes 07/06/20 08:47 Consult Physician Routine Consulting Provider: Brooklyn Benson Consult Reason/Comments: abd pain Do you want consulting provider notified?: Yes Primary care physician: Hi Vo MD Hospital Course: 69-year-old female one of Dr. Bynum patient with past medical history of alcohol abuse, hypertension and hyperlipidemia who presented to the emergency department on 822 severe abdominal pain with nausea patient lives at home with her son who has been moving out on after been sober for 3 years she went back to drink alcohol heavily for 2 days. Admission developed to have severe epigastric pain and right upper quadrant discomfort ended up coming to the emergency dep artment with severe abdominal pain with nausea and vomiting no fever or chills. On presentation she had mildly dilated common duct and up seen gastroenterology her symptoms and enzymes are coming down significantly, surprisingly her urine culture came back positive for gram-negative bacillary patient is still on Aztreonam responding well to it her number have been improving she still require Dilaudid with switch her pain meds to oral still on nicotine patch for nicotine dependency and doing slightly better as well. 07/06: Patient seen this morning resting in bed, complains of increased pain in her abdomen today. CT of the abdomen with contrast is ordered and consult for surgery in place. Labs reviewed, WBCs 8.6, hemoglobin 10.9, sodium 135, AST slightly elevated at 52, C-reactive protein 198.3, amylase and lipase are trending down nicely. Chest x-ray showed chronic changes without new suspicious acute pulmonary process. Reviewed ultrasound with patient showed moderate amount of bowel gas and right renal cyst. patient is still on Aztreonam. Vital signs are stable, temperature 99.2 this morning, pulse rate 77, blood pressure 158/79, pulse ox 96% on room air. We'll continue to watch patient closely with Dr. Berkowitz and Dr. Kenney remain on the case. 07/07: Patient is feeling better this morning seen sitting on side of bed eating breakfast, abdominal pain has improved. CT of the abdomen reviewed with patient along with Dr. Benson does not believe patient needs any surgical intervention at this time. Plan for outpatient EGD and colonoscopy in a few weeks. Plan for discharge home today with home care. Vitals remained stable, patient is afebrile, pulse rate 112, blood pressure 112/62, pulse ox 94% on room air. Patient to continue alcohol cessation. 07/08: Patient seen this morning stable for discharge today, received PICC line and will go home with IV Invanz and was for [address] Gilbert's recommendations. Patient's guardian is going to administer this per nursing. Patient to follow-up with Dr. Gilbert as outpatient likely will have a repeat ultrasound or CAT scan. Discharge diagnosis: 1 acute abdominal pain: 2 acute pancreatitis: 3 mild leukocytosis and sepsis: 4 A. fib: 5 dementia: 6 COPD with mild exacerbation: 7 anxiety and depression: 8 history of coronary artery disease: 9 history of alcoholic hepatitis and necrotic liver: 10 UTI with sepsis: Discharge plan: home today with home care Impression and plan of care have been directed as dictated by the signing physician. Yolanda Escalera nurse practitioner acting as scribe for signing physician. Patient Condition at Discharge: Stable Plan - Discharge Summary Discharge Rx Participant: No New Discharge Prescriptions: New Ipratropium-Albuterol Nebulize [Duoneb 0.5 mg-3 mg/3 ml Soln] 3 ml INHALATION RT-QID PRN ml PRN Reason: Shortness Of Breath Or Wheezing Apixaban [Eliquis] 5 mg PO BID #60 tab metroNIDAZOLE [Flagyl] 250 mg PO Q8H #21 tab Nicotine 21Mg/24Hr Patch [Habitrol] 1 patch TRANSDERM DAILY patch Multivitamins, Thera [Multivitamin (formulary)] 1 each PO DAILY tab HYDROcodone/APAP 7.5-325MG [[place] 7.5-325] 1 each PO Q6H PRN #12 tab PRN Reason: Pain amLODIPine [Norvasc] 5 mg PO DAILY #60 tab Budesonide-Formot 160-4.5 Mcg [Symbicort 160-4.5 Mcg Inhaler] 2 puff INHALATION RT-BID puff Continue QUEtiapine [SEROquel] 25 mg PO HS Pravastatin Sodium 80 mg PO HS Pantoprazole [Protonix] 40 mg PO DAILY Metoprolol Tartrate 25 mg PO BID Ibuprofen [Motrin] 600 mg PO Q8HR PRN PRN Reason: Pain hydroCHLOROthiazide 25 mg PO DAILY Desvenlafaxine Succinate [Pristiq ER] 50 mg PO DAILY Desvenlafaxine Succinate [Pristiq] 25 mg PO DAILY Meclizine [Antivert] 25 mg PO TID PRN PRN Reason: vertigo Discharge Medication List QUEtiapine [SEROquel] 25 mg PO HS 11/18/19 [History] Desvenlafaxine Succinate [Pristiq ER] 50 mg PO DAILY 07/03/20 [History] Desvenlafaxine Succinate [Pristiq] 25 mg PO DAILY 07/03/20 [History] Ibuprofen [Motrin] 600 mg PO Q8HR PRN 07/03/20 [History] Meclizine [Antivert] 25 mg PO TID PRN 07/03/20 [History] Metoprolol Tartrate 25 mg PO BID 07/03/20 [History] Pantoprazole [Protonix] 40 mg PO DAILY 07/03/20 [History] Pravastatin Sodium 80 mg PO HS 07/03/20 [History] hydroCHLOROthiazide 25 mg PO DAILY 07/03/20 [History] Apixaban [Eliquis] 5 mg PO BID #60 tab 07/07/20 [Rx] Budesonide-Formot 160-4.5 Mcg [Symbicort 160-4.5 Mcg Inhaler] 2 puff INHALATION RT-BID puff 07/07/20 [Rx] HYDROcodone/APAP 7.5-325MG [[place] 7.5-325] 1 each PO Q6H PRN #12 tab 07/07/20 [Rx] Ipratropium-Albuterol Nebulize [Duoneb 0.5 mg-3 mg/3 ml Soln] 3 ml INHALATION RT-QID PRN ml 07/07/20 [Rx] Multivitamins, Thera [Multivitamin (formulary)] 1 each PO DAILY tab 07/07/20 [Rx] Nicotine 21Mg/24Hr Patch [Habitrol] 1 patch TRANSDERM DAILY patch 07/07/20 [Rx] amLODIPine [Norvasc] 5 mg PO DAILY #60 tab 07/07/20 [Rx] metroNIDAZOLE [Flagyl] 250 mg PO Q8H #21 tab 07/07/20 [Rx] Follow up Appointment(s)/Referral(s): Hi Vo MD [Primary Care Provider] - 07/21/20 2:15 pm Ewa Christianson MD [STAFF PHYSICIAN] - 07/28/20 9:30 am (Please arrive 15 minutes early to fill out paper work) [facility], [NON-STAFF] - ([facility] will have the first visit to begin IV antibiotic infusion and teaching on:) [facility] [NON-STAFF] - ([facility] will deliver supplies to patient's house on: ) Mary Gilbert MD [STAFF PHYSICIAN] - 1 Week Activity/Diet/Wound Care/Special Instructions: Per Dr. Gilbert: patient is going home on Invanz 1 gram daily. Discharge Disposition: HOME WITH HOME HEALTH SERVICES
--- NOTE | 2020-07-07 09:30 | P.PN ---
Subjective Progress Note Date: 07/06/20 69-year-old female one of Dr. Bynum patient with past medical history of alcohol abuse, hypertension and hyperlipidemia who presented to the emergency department on 822 severe abdominal pain with nausea patient lives at home with her son who has been moving out on after been sober for 3 years she went back to drink alcohol heavily for 2 days. Admission developed to have severe epigastric pain and right upper quadrant discomfort ended up coming to the emergency department with severe abdominal pain with nausea and vomiting no fever or chills. On presentation she had mildly dilated common duct and up seen gastroenterology her symptoms and enzymes are coming down significantly, surprisingly her urine culture came back positive for gram-negative bacillary patient is still on Aztreonam responding well to it her number have been improving she still require Dilaudid with switch her pain meds to oral still on nicotine patch for nicotine dependency and doing slightly better as well. 07/06: Patient seen this morning resting in bed, complains of increased pain in her abdomen today. CT of the abdomen with contrast is ordered and consult for surgery in place. Labs reviewed, WBCs 8.6, hemoglobin 10.9, sodium 135, AST slightly elevated at 52, C-reactive protein 198.3, amylase and lipase are trend ing down nicely. Chest x-ray showed chronic changes without new suspicious acute pulmonary process. Reviewed ultrasound with patient showed moderate amount of bowel gas and right renal cyst. patient is still on Aztreonam. Vital signs are stable, temperature 99.2 this morning, pulse rate 77, blood pressure 158/79, pulse ox 96% on room air. We'll continue to watch patient closely with Dr. Berkowitz and Dr. Kenney remain on the case. Review of system: CONSTITUTIONAL: Well-developed no acute respiratory distress. EYES: No icterus sclerae, no conjunctivitis. EARS, NOSE, MOUTH, THROAT, and FACE: No sore throat, lymphadenopathy, carotid bruits or deformity. RESPIRATORY: Mild shortness of breath wheezes. CARDIOVASCULAR: No CP, Palpitation, PND, Orthopnea, or angina. GASTROINTESTINAL: Positive abdominal pain with nausea no vomiting, and decrease appetite. GENITOURINARY: Negative for Hematuria, no kidney stones. INTEGUMENT/BREAST: Negative for any muscular injury with mild osteoarthritis.. HEMATOLOGIC/LYMPHATIC: Negative for bleed or purpura. MUSCULOSKELTAL: Negative for Myalgia or arthralgia. NEURLOGICAL: No LOC, Sz or syncope, blurred vision dizziness or abnormality.. BEHAVIORAL/PSYCH: Negative. ENDOCRINE: Negative. Physical exam: General Appearance: Alert, cooperative, no distress, appears stated age. Neck HEENT: Supple, no lymphadenopathy, no thyroid enlargement, no carotid bruits. Lungs: Decreased breath bilateral Chest Wall: Decrease expansion with deep inspiration no tenderness and no deformity was found on exam, no costochondral pain or discomfort. Heart: Regular rate and rhythm, S1, S2 normal, no murmur, rub or gallop. Back: Symmetric, no curvature, ROM normal, no CVA tenderness. Abdomen: Soft, mildly tender, bowel sounds active all four quadrants, no masses, no organomegaly. Discomfort in the right upper quadrant midepigastric Extremities: Extremities normal, atraumatic, no cyanosis or edema. Pulses: 2+ and symmetric. Skin: Skin color, texture, tugor normal, no rashes or lesions. Neurologic: Alert oriented x3 cranial nerves II through XII intact, no motor deficit, no abnormal balance or gait. Objective - Vital Signs Vital signs: Vital Signs Temp 99.2 F 07/06/20 07:00 Pulse 110 H 07/06/20 07:00 Resp 18 07/06/20 07:00 BP 158/79 07/06/20 07:00 Pulse Ox 96 07/06/20 07:00 Intake & Output 07/05/20 07/06/20 07/06/20 18:59 06:59 18:59 Intake Total 1300 Output Total 350 Balance -350 1300 Intake: IV 800 Sodium Chloride 0.9% 1, 800 000 ml @ 100 mls/hr IV . Q10H GISELE Rx#:[id number] Intake, IV Titration 200 Amount Aztreonam 2 gm In Sodium 200 Chloride 0.9% 100 ml @ 33 .3 mls/hr IVPB Q8HR GISELE Rx#:[id number] Oral 300 Output: Urine 350 Other: Voiding Method Toilet Toilet # Voids 1 2 # Bowel Movements 1 1 - Labs CBC & Chem 7: 07/06/20 06:27 07/06/20 06:27 Labs: Abnormal Lab Results - Last 24 Hours (Table) 07/05/20 07/05/20 07/06/20 Range/Units 13:23 21:26 06:27 Hgb (11.4-16.0) gm/dL Hct (34.0-46.0) % Plt Count (150-450) k/uL Sodium 135 L (137-145) mmol/L Glucose 105 H (74-99) mg/dL ALT 52 H (4-34) U/L Alkaline Phosphatase 149 H (38-126) U/L C-Reactive Protein 182.3 H 198.3 H (<10.0) mg/L Total Protein 5.9 L (6.3-8.2) g/dL Amylase <30 L (30-110) U/L Urine Protein Trace H (Negative) Urine Blood Moderate H (Negative) Ur Leukocyte Esterase Small H (Negative) Urine RBC 8 H (0-5) /hpf Urine Bacteria Rare H (None) /hpf Urine Mucus Rare H (None) /hpf 07/06/20 Range/Units 06:27 Hgb 10.9 L (11.4-16.0) gm/dL Hct 33.7 L (34.0-46.0) % Plt Count 133 L (150-450) k/uL Sodium (137-145) mmol/L Glucose (74-99) mg/dL ALT (4-34) U/L Alkaline Phosphatase (38-126) U/L C-Reactive Protein (<10.0) mg/L Total Protein (6.3-8.2) g/dL Amylase (30-110) U/L Urine Protein (Negative) Urine Blood (Negative) Ur Leukocyte Esterase (Negative) Urine RBC (0-5) /hpf Urine Bacteria (None) /hpf Urine Mucus (None) /hpf Microbiology - Last 24 Hours (Table) 07/04/20 11:20 Urine Culture - Preliminary Urine,Voided Gram Neg Bacilli 07/04/20 15:57 Blood Culture - Preliminary Blood No Growth after 24 hours Assessment and Plan Plan: Assessment: 1 acute abdominal pain: Secondary to acute pancreatitis, worse today. CT ordered of the abdomen with contrast and surgical consult in place. 2 acute pancreatitis: Most likely from alcoholism her numbers are much better, CRP continues to rise at 198.3 3 mild leukocytosis and sepsis: With positive urine test patient is still on IV antibiotics seen infectious disease temperature is down. 4 A. fib: Pulse rate is under well control and still on Eliquis. 5 dementia: On conservative management no medication as needed. 6 COPD with mild exacerbation: We'll continue Pulmicort and DuoNeb doing slightly better. 7 anxiety and depression: On lorazepam, Pristiq, and Seroquel. 8 history of coronary artery disease: No chest pain or angina currently. 9 history of alcoholic hepatitis and necrotic liver: Recovering nicely. 10 UTI with sepsis: On IV antibiotics. 11 GI prophylaxis: On PPI CODE STATUS: Full code. Patient will be admitted to the hospital for minimum of 2 night stay. Discharge plan: Possibly home tomorrow depending on CT and surgery consult Impression and plan of care have been directed as dictated by the signing physician. Yolanda Escalera nurse practitioner acting as scribe for signing physician.
[2020-07-07] MEDS ORDERED: ERTAPENEM 1 GM in SODIUM CHLORIDE 0.9% 50 ML IVPB STA (14:24)
--- NOTE | 2020-07-07 15:25 | PN ---
PROGRESS NOTE DATE OF SERVICE: 07/07/2020 REASON FOR FOLLOWUP: Fever, possible abdominal source. INTERVAL HISTORY: Patient was seen on rounds this morning. The patient overall fever pattern has improved. No fever has been recorded in the last 24 hours. Still complaining of pain in the right upper quadrant area. No nausea, no vomiting. No chest pain, shortness of breath or cough and no diarrhea. PHYSICAL EXAMINATION: Blood pressure 100/67, pulse of 63, temperature 98.1. She is 94% on room air. General description is an elderly female, up in the bed in no distress. RESPIRATORY SYSTEM: Unlabored breathing, clear to auscultation anteriorly. HEART: S1, S2. Regular rate and rhythm. ABDOMEN: Soft. No tenderness. Pain to the right upper quadrant area. No guarding or rigidity. LABS: Hemoglobin 11.8, white count 6.2, BUN of 10, creatinine 0.62. CRP of 198, blood culture has been negative so far. Urine showing an E coli. DIAGNOSTIC IMPRESSION AND PLAN: Patient with fever, abdominal pain with abnormality seen on the liver which was reviewed with radiologist and they could be fine-needle aspiration. However, the patient has been discharged by the admitting team. In view of the clinical response to the meropenem antibiotic, will be switched over to Invanz 1 g daily for 2 weeks and close outpatient followup with a repeat ultrasound or CAT scan of abdomen to make sure the liver abnormality has resolved. This was discussed with the director of casework working on discharge. MMODL / IJN: [id number] /
[2020-07-07] MEDS: DESVENLAFAXINE SUCCINATE 50 MG TAB.ER.24H PO SCH (21:21)
[2020-07-07] MEDS: QUEtiapine 25 MG TAB PO SCH (21:21)
[2020-07-07] MEDS: PRAVASTATIN SODIUM 80 MG TAB PO SCH (21:21)
[2020-07-08] MEDS: SODIUM CHLORIDE 0.9% 1,000 ML IV SCH (06:13)
[2020-07-08 07:50] VITALS: RESP 16
[2020-07-08] MEDS ORDERED: FUROSEMIDE 10 MG/ML 4 ML VIAL IV STA (08:01)
[2020-07-08] MEDS: SYMBICORT 160-4.5 MCG INHALER INHALATION SCH (08:44)
[2020-07-08] MEDS ORDERED: FUROSEMIDE 10 MG/ML 4 ML VIAL ONE (08:45)
[2020-07-08] MEDS: THIAMINE 100 MG TAB PO SCH (08:52)
[2020-07-08] MEDS: amLODIPine 5 MG TAB PO SCH (08:52)
[2020-07-08] MEDS: MULTIVITAMINS, THERA 1 EACH TAB PO SCH (08:52)
[2020-07-08] MEDS: APIXABAN 5 MG TAB PO SCH (08:52)
[2020-07-08] MEDS: NICOTINE 21MG/24HR PATCH TRANSDERM SCH (08:52)
[2020-07-08] MEDS: PANTOPRAZOLE 40 MG TABLET PO SCH (08:52)
[2020-07-08] MEDS: HYDROcodone/APAP 7.5-325MG 1 EACH TAB PO PRN ×2 (09:01→14:03)
--- NOTE | 2020-07-08 09:29 | P.PN ---
Subjective Progress Note Date: 07/07/20 69-year-old female one of Dr. Bynum patient with past medical history of alcohol abuse, hypertension and hyperlipidemia who presented to the emergency department on 822 severe abdominal pain with nausea patient lives at home with her son who has been moving out on after been sober for 3 years she went back to drink alcohol heavily for 2 days. Admission developed to have severe epigastric pain and right upper quadrant discomfort ended up coming to the emergency department with severe abdominal pain with nausea and vomiting no fever or chills. On presentation she had mildly dilated common duct and up seen gastroenterology her symptoms and enzymes are coming down significantly, surprisingly her urine culture came back positive for gram-negative bacillary patient is still on Aztreonam responding well to it her number have been improving she still require Dilaudid with switch her pain meds to oral still on nicotine patch for nicotine dependency and doing slightly better as well. 07/06: Patient seen this morning resting in bed, complains of increased pain in her abdomen today. CT of the abdomen with contrast is ordered and consult for surgery in place. Labs reviewed, WBCs 8.6, hemoglobin 10.9, sodium 135, AST slightly elevated at 52, C-reactive protein 198.3, amylase and lipase are trend ing down nicely. Chest x-ray showed chronic changes without new suspicious acute pulmonary process. Reviewed ultrasound with patient showed moderate amount of bowel gas and right renal cyst. patient is still on Aztreonam. Vital signs are stable, temperature 99.2 this morning, pulse rate 77, blood pressure 158/79, pulse ox 96% on room air. We'll continue to watch patient closely with Dr. Berkowitz and Dr. Kenney remain on the case. 07/07: Patient is feeling better this morning seen sitting on side of bed eating breakfast, abdominal pain has improved. CT of the abdomen reviewed with patient along with Dr. Benson does not believe patient needs any surgical intervention at this time. Plan for outpatient EGD and colonoscopy in a few weeks. Plan for discharge home today with home care. Vitals remained stable, patient is afebrile, pulse rate 112, blood pressure 112/62, pulse ox 94% on room air. Patient to continue alcohol cessation. Review of system: CONSTITUTIONAL: Well-developed no acute respiratory distress. EYES: No icterus sclerae, no conjunctivitis. EARS, NOSE, MOUTH, THROAT, and FACE: No sore throat, lymphadenopathy, carotid bruits or deformity. RESPIRATORY: Mild shortness of breath wheezes. CARDIOVASCULAR: No CP, Palpitation, PND, Orthopnea, or angina. GASTROINTESTINAL: Positive abdominal pain with no nausea no vomiting, and decrease appetite. GENITOURINARY: Negative for Hematuria, no kidney stones. INTEGUMENT/BREAST: Negative for any muscular injury with mild osteoarthritis.. HEMATOLOGIC/LYMPHATIC: Negative for bleed or purpura. MUSCULOSKELTAL: Negative for Myalgia or arthralgia. NEURLOGICAL: No LOC, Sz or syncope, blurred vision dizziness or abnormality.. BEHAVIORAL/PSYCH: Negative. ENDOCRINE: Negative. Physical exam: General Appearance: Alert, cooperative, no distress, appears stated age. Neck HEENT: Supple, no lymphadenopathy, no thyroid enlargement, no carotid brui ts. Lungs: Decreased breath bilateral with scattered wheezing Chest Wall: Decrease expansion with deep inspiration no tenderness and no deformity was found on exam, no costochondral pain or discomfort. Heart: Regular rate and rhythm, S1, S2 normal, no murmur, rub or gallop. Back: Symmetric, no curvature, ROM normal, no CVA tenderness. Abdomen: Soft, mildly tender, bowel sounds active all four quadrants, no masses, no organomegaly. Discomfort in the right upper quadrant midepigastric Extremities: Extremities normal, atraumatic, no cyanosis or edema. Pulses: 2+ and symmetric. Skin: Skin color, texture, tugor normal, no rashes or lesions. Neurologic: Alert oriented x3 cranial nerves II through XII intact, no motor deficit, no abnormal balance or gait. Objective - Vital Signs Vital signs: Vital Signs Temp 99.2 F 07/08/20 07:00 Pulse 76 07/08/20 08:25 Resp 16 07/08/20 08:25 BP 128/74 07/08/20 07:00 Pulse Ox 94 L 07/08/20 07:00 Intake & Output 07/07/20 07/08/20 07/08/20 18:59 06:59 18:59 Intake Total 1300 Output Total 900 675 Balance 400 -675 Intake: Oral 1300 Output: Urine 900 675 Other: Voiding Method Indwelling Catheter Indwelling Catheter # Voids 2 - Labs CBC & Chem 7: 07/07/20 07:52 07/07/20 07:52 Labs: Microbiology - Last 24 Hours (Table) 07/05/20 21:26 Blood Culture - Preliminary Blood No Growth after 48 hours 07/04/20 15:57 Blood Culture - Preliminary Blood No Growth after 72 hours Assessment and Plan Plan: Assessment: 1 acute abdominal pain: Secondary to acute pancreatitis, worse today. CT ordered of the abdomen with contrast and surgical consult in place. 2 acute pancreatitis: Most likely from alcoholism her numbers are much better, CRP continues to rise at 198.3 3 mild leukocytosis and sepsis: With positive urine test patient is still on IV antibiotics seen infectious disease temperature is down. 4 A. fib: Pulse rate is under well control and still on Eliquis. 5 dementia: On conservative management no medication as needed. 6 COPD with mild exacerbation: We'll continue Pulmicort and DuoNeb doing slightly better. 7 anxiety and depression: On lorazepam, Pristiq, and Seroquel. 8 history of coronary artery disease: No chest pain or angina currently. 9 history of alcoholic hepatitis and necrotic liver: Recovering nicely. 10 UTI with sepsis: On IV antibiotics. 11 GI prophylaxis: On PPI CODE STATUS: Full code. Patient will be admitted to the hospital for minimum of 2 night stay. Discharge plan: Possibly home tomorrow Impression and plan of care have been directed as dictated by the signing physician. Yolanda Escalera nurse practitioner acting as scribe for signing physician.
[2020-07-08] MEDS ORDERED: ERTAPENEM 1 GM in SODIUM CHLORIDE 0.9% 50 ML IVPB STA (10:46)
--- NOTE | 2020-07-08 14:47 | PN ---
PROGRESS NOTE DATE OF SERVICE: 07/08/2020 REASON FOR FOLLOWUP: Fever, possible abdominal source. INTERVAL HISTORY: The patient is currently afebrile. The patient is breathing comfortably. Denies having any chest pain. No shortness of breath or cough. The right upper quadrant abdominal pain has improved. He is complaining of more diarrhea today. PHYSICAL EXAMINATION: Blood pressure 128/74 with a pulse of 73, temperature 99.2. She is 94% on room air. General description is an elderly female, lying in bed in no distress. RESPIRATORY SYSTEM: Unlabored breathing, clear to auscultation anteriorly. HEART: S1, S2. Regular rate and rhythm ABDOMEN: Soft, no guarding or rigidity. LABS: Hemoglobin is 11.8, white count 6.2, BUN of 10, creatinine 0.62. DIAGNOSTIC IMPRESSION AND PLAN: Patient with fever, right upper quadrant pain with abnormal CT with some abnormality on the liver. Patient clinically responded to the meropenem. Did have multiple antibiotic allergies. Antibiotic has been switched over to Invanz 1 g daily to continue for 2 weeks with close outpatient followup. Repeat blood work and CT in 2 weeks to finish antibiotic therapy. Continue supportive care. MMODL / IJN: [id number] /
[2020-07-09 07:45] VITALS: BP 110/64; PULSE 78; TEMP 98
== END 2020-07-08 14:22 | disposition home health service (06) | DRG 871 ==
LOC: EC 02:29 → 4SSUR 05:53
PROVIDERS: ADMIT Internal Medicine; ATTEND Internal Medicine
DX: A41.50 Gram-negative sepsis, unspecified (principal); K85.20 Alcohol induced acute pancreatitis without necrosis or infection; N39.0 Urinary tract infection, site not specified; J44.1 Chronic obstructive pulmonary disease with (acute) exacerbation; Z20.828 Contact with and (suspected) exposure to other viral communicable diseases; E11.40 Type 2 diabetes mellitus with diabetic neuropathy, unspecified; E66.01 Morbid (severe) obesity due to excess calories; Z68.32 Body mass index [BMI] 32.0-32.9, adult; E78.5 Hyperlipidemia, unspecified; F03.90 Unspecified dementia, unspecified severity, without behavioral disturbance, psychotic disturbance, mood disturbance, and anxiety; F10.20 Alcohol dependence, uncomplicated; F17.210 Nicotine dependence, cigarettes, uncomplicated; F32.9 Major depressive disorder, single episode, unspecified; F41.9 Anxiety disorder, unspecified; G89.29 Other chronic pain; M54.9 Dorsalgia, unspecified; I10 Essential (primary) hypertension; I25.10 Atherosclerotic heart disease of native coronary artery without angina pectoris; I48.91 Unspecified atrial fibrillation; K52.9 Noninfective gastroenteritis and colitis, unspecified; K70.9 Alcoholic liver disease, unspecified; K83.8 Other specified diseases of biliary tract; M15.9 Polyosteoarthritis, unspecified; M79.7 Fibromyalgia; N28.1 Cyst of kidney, acquired; F40.240 Claustrophobia; Z79.01 Long term (current) use of anticoagulants; Z79.899 Other long term (current) drug therapy; Z82.3 Family history of stroke; Z82.49 Family history of ischemic heart disease and other diseases of the circulatory system; Z86.73 Personal history of transient ischemic attack (TIA), and cerebral infarction without residual deficits; Z88.1 Allergy status to other antibiotic agents; Z88.0 Allergy status to penicillin; Z88.2 Allergy status to sulfonamides; Z88.8 Allergy status to other drugs, medicaments and biological substances; Z91.040 Latex allergy status; Z90.49 Acquired absence of other specified parts of digestive tract; Z90.710 Acquired absence of both cervix and uterus; Z87.01 Personal history of pneumonia (recurrent); Z87.440 Personal history of urinary (tract) infections; Z71.41 Alcohol abuse counseling and surveillance of alcoholic; Z90.89 Acquired absence of other organs; Z98.51 Tubal ligation status; Z87.11 Personal history of peptic ulcer disease; Z89.021 Acquired absence of right finger(s); S92.902G Unspecified fracture of left foot, subsequent encounter for fracture with delayed healing
CPT/HCPCS: 36410; 36415; 71045; 71046; 74177; 76700; 76937; 80053; 80306; 81001; 82150; 83605; 83690; 83735; 84145; 84484; 85025; 85379; 85610; 85730; 86140; 87040; 87077; 87086; 87186; 87324; 87635; 93005; 94640; 94760; 96374; 96375; 99285

== ENCOUNTER → 2020-09-06 | Outpatient (CLI) | payer MEDICARE, OTHER ==
--- NOTE | 2020-09-06 16:18 | US ---
EXAMINATION TYPE: US carotid duplex BILAT DATE OF EXAM: 09/06/2020 COMPARISON: NONE CLINICAL HISTORY: 69-year-old female G45.9 TIA. TECHNIQUE: Carotid duplex ultrasound examination. Direct Doppler criteria is utilized. FINDINGS: EXAM MEASUREMENTS: RIGHT: Peak Systolic Velocity (PSV) cm/sec ----- Right CCA: 85.7 ----- Right ICA: 86.6 -----Right BULB: 141.6 ----- Right ECA: 167.0 ICA/CCA ratio: 1.7 RIGHT: End Diastole cm/sec ----- Right CCA: 19.6 ----- Right ICA: 28.6 -----Right BULB: 36.3 ----- Right ECA: 27.6 LEFT: Peak Systolic Velocity (PSV) cm/sec ----- Left CCA: 88.1 ----- Left ICA: 117.2 ----- Left ECA: 72.7 ICA/CCA ratio: 1.3 LEFT: End Diastole cm/sec ----- Left CCA: 15.3 ----- Left ICA: 36.5 ----- Left ECA: 12.5 VERTEBRALS (direction of flow): Right Vertebral: antegrade Left Vertebral: antegrade Electrical Engineer notes: Moderate atherosclerotic changes with slight velocity increase seen in Right bulb, no other significant velocity increases. IMPRESSION: 1. Slight increased velocities within the right carotid bulb can be seen with a moderate (50-69%) pr oximal right ICA stenosis. Criteria for Assigning % of Stenosis / Diameter reduction (Estimation based on the indirect measurements of the internal carotid artery velocities (ICA PSV). 1. Normal (no stenosis)=ICA PSV < 125 cm/s: ratio < 2.0: ICA EDV<40 cm/s. 2. Less than 50% stenosis=ICA PSV < 125 cm/s: ratio < 2.0: ICA EDV<40 cm/s. 3. 50 to 69% stenosis=ICA PSV of 125 to 230 cm/s: ration 2.0 ? 4.0: ICA EDV 40-100 cm/s. 4. Greater than 70% stenosis to near occlusion= ICA PSV > 230 cm/s: ratio > 4.0: ICA EDV > 100 cm/s. 5. Near occlusion= ICA PSV velocities may be low or undetectable: variable ratio and ICA EDV. 6. Total occlusion=unable to detect flow.
== END | disposition home or self-care (01) ==
LOC: RADUSWWP 14:03
PROVIDERS: ATTEND Internal Medicine
DX: I65.21 Occlusion and stenosis of right carotid artery (principal)
CPT/HCPCS: 93880

== ENCOUNTER → 2020-09-17 | Outpatient (CLI) | payer MEDICARE, OTHER ==
[2020-09-17 14:28] LABS: Basophils % (A) 0 %; Eosinophils % (A) 0 %; HCT 37.7 % (34.0-46.0); HGB 12.2 gm/dL (11.4-16.0); Lymphocytes # (A) 1.6 k/uL (1.0-4.8); Lymphocytes % (A) 21 %; MCH 28.5 pg (25.0-35.0); MCHC 32.3 g/dL (31.0-37.0); MCV 88.1 fL (80.0-100.0); Mean Platelet Volume 8.2; Monocytes # (A) 0.4 k/uL (0-1.0); Monocytes % (A) 5 %; Neutrophils # (A) 5.5 k/uL (1.3-7.7); Neutrophils % (A) 72 %; Platelet Count 190 k/uL (150-450); RBC 4.28 m/uL (3.80-5.40); RDW 13.6 % (11.5-15.5); WBC 7.6 k/uL (3.8-10.6)
[2020-09-17 19:57] LABS: African American GFR (CKD) 87.2 (60.0-200.0); Albumin/Globulin Ratio 2.35 (1.60-3.17); Anion Gap 6.2 mmol/L (4.00-12.00); BUN/Creat Ratio 18.75 Ratio (12.00-20.00); Calcium 9.3 mg/dL (8.7-10.3); Carbon Dioxide 29.8 mmol/L (21.6-31.8); Chol/HDL Ratio 6.23; Globulin 1.7 g/dL (1.6-3.3); LDL Cholesterol,Calculated 179.4 mg/dL (0.0-131.0); Non-African American GFR(CKD) 75.2 (60.0-200.0); Potassium 4.1 mmol/L (3.5-5.5); Total Bilirubin 0.6 mg/dL (0.3-1.2); Total Protein 5.7 g/dL (6.2-8.2); VLDL Calculation 29.6 mg/dL (5.00-40.00)
[2020-09-17 20:04] LABS: T4, Free (Free Thyroxine) 0.9 ng/dL (0.80-1.80)
[2020-09-17 21:47] LABS: Hemoglobin A1C 5.7 % (4.0-6.0)
== END | disposition home or self-care (01) ==
LOC: LABWHC1 12:30
PROVIDERS: ATTEND Internal Medicine
DX: F33.2 Major depressive disorder, recurrent severe without psychotic features (principal); I10 Essential (primary) hypertension; R41.3 Other amnesia; G45.9 Transient cerebral ischemic attack, unspecified; Z79.899 Other long term (current) drug therapy
CPT/HCPCS: 36415; 80053; 80061; 83036; 84439; 84443; 85025

== ENCOUNTER 2020-12-16 14:19 | Emergency (ER) | payer MEDICARE, OTHER ==
[2020-12-16 14:36] VITALS: BP 147/76; PULSE 76; RESP 18; TEMP 97.9
--- NOTE | 2020-12-16 15:29 | ED ---
General Adult HPI - General Chief complaint: Allergic Reaction Stated complaint: Allergic reaction Time Seen by Provider: 12/16/20 14:34 Source: patient, EMS Mode of arrival: EMS Limitations: no limitations - History of Present Illness Initial comments: patient is a 70-year-old female, history mild dementia, presenting to the emergency Department with complaints of a possible ALLERGIC reaction. Patient came from an open MRI, they did inject dye and she states she started to feel nauseous and felt like her throat and her tongue were getting bigger. Patient did receive 25 mg IV Benadryl and the EMS prior to arrival. Presently, she is not complaining of any shortness of breath, no chest pain. She denies any nausea or vomiting. She states that she still feels like her tongue feels "weird." She denies any fever or chills. She has no further complaints at this time. Upon arrival to the ER, her vital signs are stable. - Related Data Home Medications Medication Instructions Recorded Confirmed QUEtiapine [SEROquel] 25 mg PO HS 11/18/19 07/03/20 Desvenlafaxine Succinate [Pristiq 50 mg PO DAILY 07/03/20 07/03/20 ER] Desvenlafaxine Succinate [Pristiq] 25 mg PO DAILY 07/03/20 07/03/20 Ibuprofen [Motrin] 600 mg PO Q8HR PRN 07/03/20 07/03/20 Meclizine [Antivert] 25 mg PO TID PRN 07/03/20 07/03/20 Metoprolol Tartrate 25 mg PO BID 07/03/20 07/03/20 Pantoprazole [Protonix] 40 mg PO DAILY 07/03/20 07/03/20 Pravastatin Sodium 80 mg PO HS 07/03/20 07/03/20 hydroCHLOROthiazide 25 mg PO DAILY 07/03/20 07/03/20 Previous Rx's Medication Instructions Recorded Apixaban [Eliquis] 5 mg PO BID #60 tab 07/07/20 Budesonide-Formot 160-4.5 Mcg 2 puff INHALATION RT-BID puff 07/07/20 [Symbicort 160-4.5 Mcg Inhaler] HYDROcodone/APAP 7.5-325MG [[place] 1 each PO Q6H PRN #12 tab 07/07/20 7.5-325] Ipratropium-Albuterol Nebulize 3 ml INHALATION RT-QID PRN ml 07/07/20 [Duoneb 0.5 mg-3 mg/3 ml Soln] Multivitamins, Thera [Multivitamin 1 each PO DAILY tab 07/07/20 (formulary)] Nicotine 21Mg/24Hr Patch [Habitrol] 1 patch TRANSDERM DAILY patch 07/07/20 amLODIPine [Norvasc] 5 mg PO DAILY #60 tab 07/07/20 metroNIDAZOLE [Flagyl] 250 mg PO Q8H #21 tab 07/07/20 Allergies Allergy/AdvReac Type Severity Reaction Status Date / Time atorvastatin [From Lipitor] Allergy Unknown Verified 12/16/20 14:22 cephalexin monohydrate Allergy Rash/Hives Verified 12/16/20 14:22 [From Keflex] ciprofloxacin [From Cipro] Allergy Swelling Verified 12/16/20 14:22 Iodinated Contrast Media Allergy Dyspnea Verified 12/16/20 14:22 latex Allergy Rash/Hives Verified 12/16/20 14:22 oxytetracycline Allergy Rash/Hives Verified 12/16/20 14:22 [From Terramycin] Penicillins Allergy Rash/Hives Verified 12/16/20 14:22 Sulfa (Sulfonamide Allergy Rash/Hives Verified 12/16/20 14:22 Antibiotics) Review of Systems ROS Statement: Those systems with pertinent positive or pertinent negative responses have been documented in the HPI. ROS Other: All systems not noted in ROS Statement are negative. 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 Past Anesthesia/Blood Transfusion Reactions: Previous Problems w/ Anesthesia Additional Past Anesthesia/Blood Transfusion Reaction / Comment(s): difficulty waking in past. clausterphobia Past Psychological History: Anxiety, Depression Smoking Status: Current every day smoker Past Alcohol Use History: None Reported Past Drug Use History: None Reported - Past Family History Mother Family Medical History: CVA/TIA Additional Family Medical History / Comment(s): Mother at age 73 from a br ain stem stroke. Brother(s) Additional Family Medical History / Comment(s): Patient has 2 full brothers with no major medical problems. Patient does not have any sisters. Patient has 3 sons with no major medical problems. Father Family Medical History: Congestive Heart Failure (CHF), Myocardial Infarction ([place]) Additional Family Medical History / Comment(s): Father at age 76 from a massive heart attack. General Exam - General Exam Comments Initial Comments: GENERAL: Patient is well-developed and well-nourished. Patient is nontoxic and in no acute distress. HEAD: Atraumatic, normocephalic. EYES: Pupils equal round and reactive to light, extraocular movements intact, sclera anicteric, conjunctiva are normal. Eyelids were unremarkable. ENT: TMs normal, nares patent, oropharynx clear without exudates. Moist mucous membranes. There is no swelling of the tongue. NECK: Normal range of motion, supple without lymphadenopathy or JVD. LUNGS: Unlabored respirations. Breath sounds clear to auscultation bilaterally and equal. No wheezes rales or rhonchi. HEART: Regular rate and rhythm without murmurs, rubs or gallops. ABDOMEN: Soft, nontender, normoactive bowel sounds. No guarding, no rebound. No masses appreciated. : Deferred MUSCULOSKELETAL: Normal extremities with adequate strength and normal range of motion, no pitting or edema. No clubbing or cyanosis. NEUROLOGICAL: Patient is alert and oriented x 3. Motor and sensory are also intact. Cranial nerves II through XII grossly intact. Symmetrical smile. Normal speech, normal gait. PSYCH: Normal mood, normal affect. SKIN: Warm, Dry, normal turgor, no rashes or lesions noted. Limitations: no limitations Course Vital Signs 12/16/20 14:22 Temperature 97.9 F Pulse Rate 76 Respiratory 18 Rate Blood Pressure 147/76 O2 Sat by Pulse 100 Oximetry Medical Decision Making - Medical Decision Making patient is a 70-year-old female sent in for possible ALLERGIC reaction after having an open MRI with contrast. Patient's vital signs are stable upon arrival. She did receive 25 mg of Benadryl not EMS prior to arrival. Patient's exam is unremarkable, there is no swelling of the tongue, no rash or hives, her breathing is normal. Patient states she feels better. 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 Patient was observed in the ER for approximately one hour, she was reexamined and continues to feel well. Vitals are normal, there is no rash, no swelling. Patient is stable for discharge. Patient is in agreement with this plan of care. Return parameters were discussed with the patient and they verbalized understanding. Case discussed with Dr. Xavier. Disposition Clinical Impression: Anxiety Disposition: HOME SELF-CARE Condition: Stable Instructions (If sedation given, give patient instructions): Normal Exam (ED) Additional Instructions: Please return to the Emergency Department if symptoms worsen or any other concerns. Please follow-up with your regular doctor. Is patient prescribed a controlled substance at d/c from ED?: No Referrals: Hi Vo MD [Primary Care Provider] - 1-2 days
== END 2020-12-16 15:50 | disposition home or self-care (01) ==
LOC: EC 14:19 → SUPCPDRO 14:19 → EC 15:50
DX: F41.9 Anxiety disorder, unspecified (principal); I10 Essential (primary) hypertension; M79.7 Fibromyalgia; M19.90 Unspecified osteoarthritis, unspecified site; I25.119 Atherosclerotic heart disease of native coronary artery with unspecified angina pectoris; K21.9 Gastro-esophageal reflux disease without esophagitis; E78.5 Hyperlipidemia, unspecified; F32.9 Major depressive disorder, single episode, unspecified; F17.200 Nicotine dependence, unspecified, uncomplicated; Z79.899 Other long term (current) drug therapy; Z88.8 Allergy status to other drugs, medicaments and biological substances; Z88.0 Allergy status to penicillin; Z88.2 Allergy status to sulfonamides; Z91.040 Latex allergy status; Z91.041 Radiographic dye allergy status; Z88.1 Allergy status to other antibiotic agents; Z86.73 Personal history of transient ischemic attack (TIA), and cerebral infarction without residual deficits
CPT/HCPCS: 99283

== ENCOUNTER → 2021-02-16 | Outpatient (CLI) | payer MEDICARE, OTHER ==
--- NOTE | 2021-02-16 16:42 | CT ---
EXAMINATION TYPE: CT brain ghazal[place] wo con DATE OF EXAM: 02/16/2021 COMPARISON: 08/07/2019 HISTORY: fall yesterday with dizziness and injury. CT DLP: 1691.4 mGycm, Automated exposure control for dose reduction was used. CONTRAST: None CT of the brain is performed utilizing 3 mm thick sections through the posterior fossa and 3 mm thick sections through the remaining calvarium. Study is performed within 24 hours of arrival to the hospital. No abnormal hyperdensity is present to suggest an acute intracranial hemorrhage. No mass lesion is evident. No acute infarcts are evident. Ventricles and sulci are appropriate for the patient age. Paranasal sinuses and mastoid air cells within the [id number] are clear. IMPRESSIONS: 1. No acute intracranial process. CT cervical spine. COMPARISON: None CT of the cervical spine is performed in the axial plane at 2 mm thick sections. Reconstructed image s in the coronal, and sagittal plane are reviewed on the computer. No acute fractures are evident. Vertebral body alignment is straightened. Disc heights are preserved. Vertebral body heights are preserved. No spinal canal stenosis is evident. No neural foraminal stenosis is evident. There is a 0.4 cm nodule in the posterior lateral left upper lung field. Series 7 image 93. This shou ld be followed with CT chest to evaluate this finding and further evaluate the chest. IMPRESSIONS: 1. Normal CT cervical spine. 2. 0.4 cm nodule left upper lobe. Follow-up exam can be performed for reevaluation.
--- NOTE | 2021-02-17 04:50 | US ---
EXAMINATION TYPE: US carotid duplex BILAT DATE OF EXAM: 02/16/2021 COMPARISON: NONE CLINICAL HISTORY: 70-year-old female R42 Dizziness and giddiness. TECHNIQUE: Carotid duplex ultrasound examination. Indirect upper criteria was utilized. FINDINGS: EXAM MEASUREMENTS: RIGHT: Peak Systolic Velocity (PSV) cm/sec ----- Right CCA: 123 ----- Right ICA: 128 ----- Right ECA: 165 ICA/CCA ratio: .9 RIGHT: End Diastole cm/sec ----- Right CCA: 29.2 ----- Right ICA: 12.9 ----- Right ECA: 14.6 LEFT: Peak Systolic Velocity (PSV) cm/sec ----- Left CCA: 147 ----- Left ICA: 165 ----- Left ECA: 157 ICA/CCA ratio: 1.1 LEFT: End Diastole cm/sec ----- Left CCA: 22.3 ----- Left ICA: 26.6 ----- Left ECA: 15.4 VERTEBRALS (direction of flow): Right Vertebral: Antegrade Left Vertebral: Antegrade Rhythm: Normal IMPRESSION: 1. While ICA peak systolic velocities are slightly elevated, the end-diastolic velocities and ICA/CC A ratios fall within normal limits. No hemodynamically significant ICA stenosis on either side. Criteria for Assigning % of Stenosis / Diameter reduction (Estimation based on the indirect measurements of the internal carotid artery velocities (ICA PSV). 1. Normal (no stenosis)=ICA PSV < 125 cm/s: ratio < 2.0: ICA EDV<40 cm/s. 2. Less than 50% stenosis=ICA PSV < 125 cm/s: ratio < 2.0: ICA EDV<40 cm/s. 3. 50 to 69% stenosis=ICA PSV of 125 to 230 cm/s: ration 2.0 ? 4.0: ICA EDV 40-100 cm/s. 4. Greater than 70% stenosis to near occlusion= ICA PSV > 230 cm/s: ratio > 4.0: ICA EDV > 100 cm/s. 5. Near occlusion= ICA PSV velocities may be low or undetectable: variable ratio and ICA EDV. 6. Total occlusion=unable to detect flow.
== END | disposition home or self-care (01) ==
LOC: RADCTMAIN 15:40
PROVIDERS: ATTEND Internal Medicine
DX: R42 Dizziness and giddiness (principal); R29.6 Repeated falls
CPT/HCPCS: 70450; 72125; 93880

== ENCOUNTER → 2021-04-06 | Outpatient (CLI) | payer MEDICARE, OTHER ==
--- NOTE | 2021-04-06 16:32 | CT ---
EXAMINATION TYPE: CT lumbar spine wo con DATE OF EXAM: 04/06/2021 COMPARISON: None HISTORY: 70-year-old female M54.16, lumbar region radiculopathy, chronic low back pain TECHNIQUE: Contiguous axial scanning of the lumbar spine without IV contrast. Coronal and sagittal re constructions performed. CT DLP: 1042.2 mGycm Automated exposure control for dose reduction was used. FINDINGS: Partially visualized right renal cyst measuring 2.8 cm. A nodule within each adrenal gland measuring 1.3 and 1.0 cm on the right and left sides, respectively both show low attenuation suggesting adrenal adenomas. Vertebral body heights are preserved and alignment is maintained. Facet arthropathy mid to lower lumbar spine. By CT, no large focal disc herniation is seen. No significant spinal canal stenosis identified. There seems to be a right paracentral disc protrusion at L5-S1 which may abut the traversing right S1 nerve root, sagittal image 29. Otherwise, on the right, there is moderate neuroforaminal stenosis at L5-S1 and mild at L3-L4 and L4- L5. On the left, there is mild neural foraminal stenosis at multiple levels. IMPRESSION: 1. HYPERTROPHIC FACET ARTHROPATHY MID TO LOWER LUMBAR SPINE. NO MALALIGNMENT OR VERTEBRAL COMPRESSION COLLAPSE. 2. SUGGESTION OF A RIGHT PARACENTRAL DISC PROTRUSION AT L5-S1 WHICH MAY ABUT THE TRAVERSING RIGHT S1 NERVE ROOT. 3. MODERATE NEURAL FORAMINAL STENOSIS ON THE RIGHT AT L5-S1 AND MILD AT L3-L4 AND L4-L5. MILD MULTILE INGE NEUROFORAMINAL NARROWING ON THE LEFT.
== END | disposition home or self-care (01) ==
LOC: RADCTMAIN 14:55
PROVIDERS: ATTEND Internal Medicine
DX: M99.73 Connective tissue and disc stenosis of intervertebral foramina of lumbar region (principal); M12.88 Other specific arthropathies, not elsewhere classified, other specified site
CPT/HCPCS: 72131

== ENCOUNTER → 2021-05-25 | Outpatient (CLI) | payer MEDICARE, OTHER ==
[2021-05-25 11:39] VITALS: PULSE 78; RESP 20; TEMP 98.2
--- NOTE | 2021-05-25 11:54 | P.PN ---
Subjective Progress Note Date: 05/25/21 This is 70 years old female with a chronic history of severe neck pain and headache, is diagnosed with occipital neuralgia and cervical, cervical spondylosis Last year we have done bilateral occipital nerve block, and she has no benefit from it, she continue to have severe neck pain and headache, and any neck movement aggravates her neck pain, she denies any motor or sensory deficit Objective - Vital Signs Vital signs: Vital Signs Temp 98.2 F 05/25/21 11:28 Pulse 78 05/25/21 11:28 Resp 20 05/25/21 11:28 BP Pulse Ox 98 05/25/21 11:28 Intake & Output 05/24/21 05/25/21 05/25/21 18:59 06:59 18:59 Weight 89.811 kg - Exam Physical Examinations : -Constitutiona : Cooperative , not in acute distress . -HEENT : nech : supple , no Lymphadenopathy , normal thyroid size . : eyes : no ptosis , no icterus, no photophobia . - neurologic : Cranial nerve II to XII intact , no focal neurological deffecit . -psychatric : alert , oriented X 3 , appropriate affect , intact judgment and insight . -Lymphatic : no Lymphadenopathy . - musculoskeltal : Cervical Spine motor stregnth in the deltoid and biceps, normal right side , normal Left side motor stregnth biceps and the wrist extensors normal right side ,normal left side . motor stregnth in the triceps muscle . normal Right side , normal Left side deep tendon reflexes normal at the biceps , normal at Brachioradialis , normal at triceps. cervical facet loading test: Positive Bilaterally sever tenderness over the occipital nerve bilaterally Imaging: MRI cervical spine done on 11/06/2019 shows scattered facet hypertrophy, mild degenerative disc disease,moderate spinal canal stenosis at C5-6, congenital cord narrowing and multilevel neuroforaminal narrowing. Computed tomography scan of the cervical spine done in February 2021= normal Assessment and Plan Plan: Assessment:and plan= 1. Occipital neuralgia 2. cervical spondylosis with cervical facet arthropathy Patient had bilateral occipital nerve block done last year and she had 0 benefits from it She will be good candidate to have diagnostic medial branch blocks C2, C3 , and third occipital nerve bilaterally x2 and she has a good result to proceed with RFA Time with Patient: Less than 30
[2021-05-25 12:07] VITALS: BP 141/64
== END ==
LOC: PNWHC3 11:21
PROVIDERS: ATTEND Specialist
DX: M54.81 Occipital neuralgia (principal); M50.30 Other cervical disc degeneration, unspecified cervical region; F17.200 Nicotine dependence, unspecified, uncomplicated; Z88.1 Allergy status to other antibiotic agents; Z91.040 Latex allergy status; Z88.0 Allergy status to penicillin; Z88.2 Allergy status to sulfonamides; Z91.041 Radiographic dye allergy status
CPT/HCPCS: 99211

== ENCOUNTER 2021-06-11 07:42 | Observation (INO) | payer MEDICARE, OTHER ==
[2021-06-11] MEDS ORDERED: SODIUM CHLORIDE 0.9% 1,000 ML IV STA (07:51)
--- NOTE | 2021-06-11 08:05 | ED ---
Chest Pain HPI - General Chief Complaint: Chest Pain Stated Complaint: Chest Pain Time Seen by Provider: 06/11/21 07:42 Source: patient, EMS, RN notes reviewed Mode of arrival: EMS Limitations: no limitations - History of Present Illness Initial Comments: This is a 70-year-old female history of multiple medical problems including previous A. fib/heart disease who states she's been having intermittent chest pains on and off for the past today started in her left arm and wrist area 1 to her back and into her chest she states this feels similar to her previous cardiac episodes. He was given aspirin as well as nitroglycerin the pain went from 10-7. No nausea no vomiting no sweats no shortness of breath with it. She states it felt very similar again to her previous cardiac episodes. She is currently on Eliquis for atrial fibrillation. No other current complaints or modifying factors MD Complaint: chest pain - Related Data Home Medications Medication Instructions Recorded Confirmed QUEtiapine [SEROquel] 25 mg PO BID 11/18/19 05/25/21 Metoprolol Tartrate 25 mg PO BID 07/03/20 05/25/21 Pantoprazole [Protonix] 40 mg PO DAILY 07/03/20 05/25/21 Pravastatin Sodium 80 mg PO HS 07/03/20 05/25/21 hydroCHLOROthiazide 25 mg PO DAILY 07/03/20 05/25/21 Atorvastatin [Lipitor] 20 mg PO DAILY 05/25/21 05/25/21 Baclofen 5 mg PO TID PRN 05/25/21 05/25/21 Ezetimibe [Zetia] 10 mg PO DAILY 05/25/21 05/25/21 Levofloxacin [Levaquin] 500 mg PO DAILY 05/25/21 05/25/21 Omeprazole 40 mg PO TID-W/MEALS 05/25/21 05/25/21 Ondansetron [Zofran] 4 mg PO Q8HR PRN 05/25/21 05/25/21 metroNIDAZOLE [Flagyl] 500 mg PO TID 05/25/21 05/25/21 Previous Rx's Medication Instructions Recorded Apixaban [Eliquis] 5 mg PO BID #60 tab 07/07/20 Ipratropium-Albuterol Nebulize 3 ml INHALATION RT-QID PRN ml 07/07/20 [Duoneb 0.5 mg-3 mg/3 ml Soln] Multivitamins, Thera [Multivitamin 1 each PO DAILY tab 07/07/20 (formulary)] Nicotine 21Mg/24Hr Patch [Habitrol] 1 patch TRANSDERM DAILY patch 07/07/20 amLODIPine [Norvasc] 5 mg PO DAILY #60 tab 07/07/20 Allergies Allergy/AdvReac Type Severity Reaction Status Date / Time atorvastatin [From Lipitor] Allergy Unknown Verified 06/11/21 07:48 cephalexin monohydrate Allergy Rash/Hives Verified 06/11/21 07:48 [From Keflex] ciprofloxacin [From Cipro] Allergy Swelling Verified 06/11/21 07:48 Iodinated Contrast Media Allergy Dyspnea Verified 06/11/21 07:48 latex Allergy Rash/Hives Verified 06/11/21 07:48 oxytetracycline Allergy Rash/Hives Verified 06/11/21 07:48 [From Terramycin] Penicillins Allergy Rash/Hives Verified 06/11/21 07:48 Sulfa (Sulfonamide Allergy Rash/Hives Verified 06/11/21 07:48 Antibiotics) Review of Systems ROS Statement: Those systems with pertinent positive or pertinent negative responses have been documented in the HPI. ROS Other: All systems not noted in ROS Statement are negative. 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 Past Anesthesia/Blood Transfusion Reactions: Previous Problems w/ Anesthesia Additional Past Anesthesia/Blood Transfusion Reaction / Comment(s): difficulty waking in past. clausterphobia Past Psychological History: Anxiety, Depression Smoking Status: Current every day smoker Past Alcohol Use History: None Reported Past Drug Use History: None Reported - Past Family History Mother Family Medical History: CVA/TIA Additional Family Medical History / Comment(s): Mother at age 73 from a brain stem stroke. Brother(s) Additional Family Medical History / Comment(s): Patient has 2 full brothers with no major medical problems. Patient does not have any sisters. Patient has 3 sons with no major medical problems. Father Family Medical History: Congestive Heart Failure (CHF), Myocardial Infarction ([place]) Additional Family Medical History / Comment(s): Father at age 76 from a massive heart attack. General Exam - General Exam Comments Initial Comments: This is a well-developed well-nourished awake alert oriented 3 female Limitations: no limitations General appearance: alert, anxious Head exam: Present: atraumatic, normocephalic, normal inspection Eye exam: Present: normal appearance, PERRL, EOMI. Absent: scleral icterus, conjunctival injection, periorbital swelling ENT exam: Present: mucous membranes dry Neck exam: Present: normal inspection, full ROM, other (No stridor JVD or bruits). Absent: tenderness, meningismus, lymphadenopathy Respiratory exam: Present: normal lung sounds bilaterally, chest wall tenderness. Absent: respiratory distress, wheezes, rales, rhonchi, stridor Cardiovascular Exam: Present: regular rate, normal rhythm, normal heart sounds. Absent: systolic murmur, diastolic murmur, rubs, gallop, clicks GI/Abdominal exam: Present: soft, normal bowel sounds. Absent: distended, tenderness, guarding, rebound, rigid, bruit, pulsatile mass Extremities exam: Present: normal inspection, full ROM, normal capillary refill. Absent: tenderness, pedal edema, joint swelling, calf tenderness Back exam: Present: normal inspection Neurological exam: Present: alert, oriented X3, CN II-XII intact Psychiatric exam: Present: normal affect, normal mood Skin exam: Present: warm, dry, intact, normal color. Absent: rash Course Vital Signs 06/11/21 06/11/21 07:43 08:43 Temperature 97.8 F Pulse Rate 95 76 Respiratory 19 18 Rate Blood Pressure 129/104 129/70 O2 Sat by Pulse 99 97 Oximetry Chest Pain MDM - MDM On reevaluation patient did say she was getting improvement in her discomfort. She does complain some abdominal bloating she has a history of pancreatitis or lipase levels within normal limits. Her abdomen was nontender on my initial examination. KUB is pending. I did discuss the case with Dr. Calderón the patient will be admitted for inpatient evaluation and treatment. Disposition Clinical Impression: Atypical chest pain, Chest wall pain, Dehydration Disposition: ADMITTED IP TO THIS HOSP Condition: Stable Referrals: Hi Vo MD [Primary Care Provider] - 1-2 days
[2021-06-11 08:19] LABS: Basophils % (A) 0 %; Eosinophils # (A) 0.1 k/uL (0-0.7); Eosinophils % (A) 1 %; HCT 35.1 % (34.0-46.0); HGB 11.9 gm/dL (11.4-16.0); Lymphocytes # (A) 1.8 k/uL (1.0-4.8); Lymphocytes % (A) 18 %; MCH 29.5 pg (25.0-35.0); MCHC 33.9 g/dL (31.0-37.0); Mean Platelet Volume 8.2; Monocytes # (A) 0.5 k/uL (0-1.0); Monocytes % (A) 5 %; Neutrophils # (A) 7.3 k/uL (1.3-7.7); Neutrophils % (A) 75 %; Platelet Count 225 k/uL (150-450); RBC 4.04 m/uL (3.80-5.40); RDW 14.5 % (11.5-15.5); WBC 9.7 k/uL (3.8-10.6)
[2021-06-11 08:29] LABS: Albumin 3.6 g/dL (3.5-5.0); Calcium 9.3 mg/dL (8.4-10.2); Magnesium 1.8 mg/dL (1.6-2.3); Potassium 3.6 mmol/L (3.5-5.1); Total Bilirubin 0.3 mg/dL (0.2-1.3); Total Protein 5.8 g/dL (6.3-8.2)
--- NOTE | 2021-06-11 08:30 | XR ---
EXAMINATION TYPE: XR chest 2V DATE OF EXAM: 06/11/2021 COMPARISON: 07/06/2020 HISTORY: Fever TECHNIQUE: Frontal and lateral views of the chest are obtained. FINDINGS: There is no focal air space opacity, pleural effusion, or pneumothorax seen. The cardiac silhouette size is within normal limits. The osseous structures are intact. IMPRESSION: No acute cardiopulmonary process.
[2021-06-11 08:35] LABS: INR 0.9 (<1.2); Partial Thromboplastin Time 21.9 sec (22.0-30.0); Prothrombin Time 9.7 sec (9.0-12.0)
[2021-06-11] MEDS ORDERED: NITROGLYCERIN SL TABS 0.4 MG TAB SUBLINGUAL PRN (10:33)
[2021-06-11] MEDS ORDERED: ONDANSETRON 4 MG TAB PO PRN (10:39)
[2021-06-11] MEDS ORDERED: IPRATROPIUM-ALBUTEROL 3 ML NEB INHALATION PRN (10:39)
--- NOTE | 2021-06-11 10:41 | XR ---
EXAMINATION TYPE: XR KUB DATE OF EXAM: 06/11/2021 COMPARISON: NONE HISTORY: Abdominal bloating and pain TECHNIQUE: One view abdominal series FINDINGS: The osseous structures are intact. The bowel gas pattern is nonspecific. Single air-fluid level in t he right upper quadrant is nonspecific. Arthropathy of the hips with scoliosis and degenerative nguyen e of the spine. Lung bases are clear. IMPRESSION: 1. Nonspecific abdomen. Single air-fluid level right upper quadrant is nonspecific. Correlate for en teritis or ileus.
[2021-06-11] MEDS: SODIUM CHLORIDE 0.9% 1,000 ML IV SCH ×2 (11:48→20:27)
[2021-06-11] MEDS ORDERED: BACLOFEN 10 MG TAB PO PRN (15:38)
[2021-06-11] MEDS ORDERED: DICYCLOMINE 10 MG CAP PO PRN (15:38)
--- NOTE | 2021-06-11 15:59 | P.HPIM ---
History of Present Illness H&P Date: 06/11/21 History of present illness 70 years old female with history of atrial fibrillation, history of asthma, COPD, coronary artery disease s/p cardiac cath in he did medically, history of CVA 2006. TIA in 2007, alcoholic liver disease, memory impairment, hypertension, hyperlipidemia, chronic back pain with degenerative disc disease with possible hemangioma on the liver, tobacco abuse comes in with on and off chest pain that started 1 week ago. Chest pain is central in character initially started in her wrist in the right upper extremity followed by numbness and tingling involving the upper extremity on the right which moved to the left upper extremity. Patient continued to have chest pain until yesterday when she had a sharp chest pain in the center and she decided to come to the ER. Patient is a poor historian and comes with [facility] to the clinic to help her with her medical conditions. Patient continues to smoke 1 pack a day and has dry cough and shortness of breath associated with her symptoms. In the ER patient had is afebrile pulse 67 respiratory rate 18 blood pressure 108/65 and saturating at 93% on room air labs suggestive of hemoglobin 11.9 CO2 of 32 BUN of 31 creatinine 0.8 glucose 113 troponin x2 -. Cardiology consult is placed EKG was ordered which no ST or T wave changes. Repeat EKG ordered. Chest x-ray is negative for any acute abnormality KUB x-ray suggestive of ileus. Prednisone 40 mg p.o. daily added for acute bronchitis as patient is wheezing on examination Review of systems Review of system negative except for the above mentioned findings Social history Patient is a every day smoker smokes started smoking at the age of 15-16 smoked 2-1/2 pack a day and is currently down to 1 pack a day. She was a heavy alcohol abuse user until 3 years ago when she quit. She does smoke marijuana. She lives with her son and uses cane for ambulation Family history Father had congestive heart failure and ME at the age of 76 Mother had a brainstem stroke at the age of 73 Patient has 2 brothers with no major medical problems patient has 3 sons with no medical problems. Physical exam CONSTITUTIONAL: Patient appears comfortable in no apparent distress. NECK: No JVD or lymph node enlargement. HEET: Unremarkable, conjunctivae/corneas clear. Sclera anicteric. Oral cavity no lesions. RESPIRATORY: Decreased air entry with expiratory wheezing on deep breath. No crackles or rhonchi heard CARDIOVASCULAR: Regular rate and rhythm. No murmurs or gallops noted no rubs GASTROINTESTINAL: soft, non tender, no organomegaly. Bowel sounds are positive. Appears distended PSYCH: Denies any depression or anxiety. SKIN: No rashes NEUROLOGICAL: alert, oriented x 3, no focal deficits noted. Assessment and plan #1 acute substernal chest pain likely atypical rule out ACS. Cardiology consulted EKG ordered. Troponin x2 -. History of coronary artery disease that is treated medically. 2. Paroxysmal atrial fibrillation on Eliquis 5 mg twice daily 3. Hypertension on Norvasc 5 mg p.o. daily, hydrochlorothiazide 25 mg p.o. daily metoprolol 25 twice daily 4. Hyperlipidemia due to constant liver elevation statin held. On Zetia 10 mg daily 5. COPD with acute exacerbation. Wheezing on examination continue DuoNeb as needed for shortness of breath. Prednisone 40 mg p.o. daily. Azithromycin 250 mg for 5 days 6. Chronic nicotine dependence nicotine patch 21 mg daily 7. History of CVA/TIA, no residual deficits noted 8. Degenerative disc disease with significant occipital pain and lower back pain. Physical therapy has been recommended in the past . patient follows pain clinic for nerve block 9. Early dementia with short-term memory loss on Aricept 5 mg daily 10. Alcoholic liver disease with liver lesion acute hemangioma based on CAT scan. Patient could not complete MRI due to allergic reaction in the middle of the procedure. MRI was negative for any hepatic abnormality 11. History of pancreatitis secondary to alcohol use. No recent reoccurrence. 12. History of peripheral neuropathy stable 13. Anxiety and depression on Cymbalta 60 mg p.o. daily. On Seroquel 25 twice daily 14. CODE STATUS full code 15. DVT prophylaxis with Eliquis 16. Disposition patient need 1-2 inpatient hospitalization for stabilization. Cardiology recommendation pending Past Medical History Past Medical History: Atrial Fibrillation, Asthma, Coronary Artery Disease (CAD), Chest Pain / Angina, COPD, CVA/TIA, Dementia, Fibromyalgia, GERD/Reflux, Hyperlipidemia, Hypertension, Memory Impairment, Myocardial Infarction ([place]), Osteoarthritis (OA), Pneumonia Additional Past Medical History / Comment(s): EARLY DEMENTIA WITH SOME SHORT TERM MEMORY LOSS, NEUROPATHY BILATERAL UPPER AND LOWER EXTREMITIES, CHRONIC BACK PAIN, DJD, CVA 2006, TIA 2007, BRONCHITIS, SINUS PROBLEMS AT TIMES, 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, BILATERAL TINNITIS, PAST L FOOT FRACTURES THAT HEALED INCORRECTLY, UTIs Last Myocardial Infarction Date:: vanessa History of Any Multi-Drug Resistant Organisms: None Reported Past Surgical History: Bladder Surgery, Cholecystectomy, Hysterectomy, Orthopedic Surgery, Tonsillectomy, Tubal Ligation Additional Past Surgical History / Comment(s): 2013 CARDIAC CATH TX MEDICALLY, BENIGN OVARIAN TUMOR REMOVAL, BENIGN PERINEAL TUMOR REMOVAL, BILATERAL VOCAL CORDS STRIPPED D/T TUMORS, FIRST 2 FINGER r HAND PARTIAL AMP D/T INJURY, 2 BLADDER SUSPENSIONS, COLONOSCOPY/HEMORRHOIDECTOMY. Past Anesthesia/Blood Transfusion Reactions: Previous Problems w/ Anesthesia Additional Past Anesthesia/Blood Transfusion Reaction / Comment(s): difficulty waking in past. clausterphobia Past Psychological History: Anxiety, Depression Additional Psychological History / Comment(s): Pt lives with son right now with 1 cat. Pt uses a wheeled walker or a cane. Pt no longer drives, she takes the bus. She denies any suicidal thoughts/plans. Smoking Status: Current every day smoker Past Alcohol Use History: None Reported Additional Past Alcohol Use History / Comment(s): Started smoking at age 15 or 16 up to 2-1/2 packs per day and is currently down to 1ppd. Patient does give history of heavy alcohol abuse off and on in the past but had quit alcohol completely 3 years ago. She does smoke marijuana. Patient lives in an artment building with 4 other adults. She uses a cane for ambulation. Past Drug Use History: None Reported Additional Drug Use History / Comment(s): Occasional marijuana use - Past Family History Mother Family Medical History: CVA/TIA Additional Family Medical History / Comment(s): Mother at age 73 from a brain stem stroke. Brother(s) Additional Family Medical History / Comment(s): Patient has 2 full brothers with no major medical problems. Patient does not have any sisters. Patient has 3 sons with no major medical problems. Father Family Medical History: Congestive Heart Failure (CHF), Myocardial Infarction ([place]) Additional Family Medical History / Comment(s): Father at age 76 from a massive heart attack. Medications and Allergies Home Medications Medication Instructions Recorded Confirmed Type QUEtiapine [SEROquel] 25 - 50 mg PO HS PRN 11/18/19 06/11/21 History Metoprolol Tartrate 25 mg PO BID 07/03/20 06/11/21 History hydroCHLOROthiazide 25 mg PO DAILY 07/03/20 06/11/21 History Apixaban [Eliquis] 5 mg PO BID #60 tab 07/07/20 06/11/21 Rx amLODIPine [Norvasc] 5 mg PO DAILY #60 tab 07/07/20 06/11/21 Rx Atorvastatin [Lipitor] 20 mg PO DAILY 05/25/21 06/11/21 History Ezetimibe [Zetia] 10 mg PO DAILY 05/25/21 06/11/21 History Omeprazole 40 mg PO AC-BID 05/25/21 06/11/21 History Ondansetron [Zofran] 4 - 8 mg PO BID PRN 05/25/21 06/11/21 History Albuterol Sulfate [Ventolin HFA] 2 puff INHALATION RT-Q4H PRN 06/11/21 06/11/21 History Baclofen [Lioresal] 5 mg PO TID PRN 06/11/21 06/11/21 History DULoxetine HCL [Cymbalta] 60 mg PO DAILY 06/11/21 06/11/21 History Dicyclomine [Bentyl] 10 mg PO TID PRN 06/11/21 06/11/21 History Donepezil [Aricept] 5 mg PO HS 06/11/21 06/11/21 History Meloxicam [Mobic] 15 mg PO DAILY PRN 06/11/21 06/11/21 History Umeclidinium [place] [Incruse 1 puff INHALATION RT-DAILY 06/11/21 06/11/21 History Ellipta] Allergies Allergy/AdvReac Type Severity Reaction Status Date / Time atorvastatin [From Lipitor] Allergy Unknown Verified 06/11/21 11:01 cephalexin monohydrate Allergy Rash/Hives Verified 06/11/21 11:01 [From Keflex] ciprofloxacin [From Cipro] Allergy Swelling Verified 06/11/21 11:01 Iodinated Contrast Media Allergy Dyspnea Verified 06/11/21 11:01 latex Allergy Rash/Hives Verified 06/11/21 11:01 oxytetracycline Allergy Rash/Hives Verified 06/11/21 11:01 [From Terramycin] Penicillins Allergy Rash/Hives Verified 06/11/21 11:01 Sulfa (Sulfonamide Allergy Rash/Hives Verified 06/11/21 11:01 Antibiotics) Physical Exam Vitals: Vital Signs Temp Pulse Pulse Resp BP BP Pulse Ox 06/11/21 11:18 98.5 F 67 18 108/65 93 L 06/11/21 11:05 98.3 F 86 18 138/78 97 06/11/21 08:43 76 18 129/70 97 06/11/21 07:43 97.8 F 95 19 129/104 99 Intake and Output 06/11/21 06/11/21 06/11/21 06:59 14:59 22:59 Other: # Voids 2 Weight 68.039 kg Results CBC & Chem 7: 06/11/21 08:10 06/11/21 08:10 Labs: Abnormal Lab Results - Last 24 Hours (Table) 06/11/21 06/11/21 Range/Units 08:10 08:10 APTT 21.9 L (22.0-30.0) sec Carbon Dioxide 32 H (22-30) mmol/L BUN 31 H (7-17) mg/dL Glucose 113 H (74-99) mg/dL Creatine Kinase 29 L (30-135) U/L Total Protein 5.8 L (6.3-8.2) g/dL Thrombosis Risk Factor Assmnt - Choose All That Apply Each Risk Factor Represents 2 Points: Age 61-74 years Thrombosis Risk Factor Assessment Total Risk Factor Score: 2 Thrombosis Risk Factor Assessment Level: Low Risk
[2021-06-11] MEDS: predniSONE 20 MG TAB PO SCH (16:05)
[2021-06-11] MEDS: NICOTINE 21MG/24HR PATCH TRANSDERM SCH (16:05)
[2021-06-11] MEDS: PANTOPRAZOLE 40 MG TABLET PO SCH (16:06)
--- NOTE | 2021-06-11 16:14 | P.CRDCN ---
History of Present Illness History of present illness: HISTORY OF PRESENTING ILLNESS Patient is pleasant 70-year-old female with history of atrial fibrillation, asthma, COPD, cardiac catheterization 2012, stroke 2007, TIA, alcoholic liver disease, mild memory impairment, hypertension, hyperlipidemia, hemangioma of the liver, tobacco abuse. She states she normally follows with Dr. Braun. She has been having off-and-on back pain which starts in the back and then comes to the front of her chest. In the front of her chest that is pinpoint and reproducible with palpation. She states occasionally is worse however it is a sharp feeling and worse if you're pushing on it. No association shortness breath or diaphoresis. She also admits that occasionally she will get pain and numbness and tingling down her arms. This has been going on for weeks. She is told her doctors about this previously. She believes has been approximately 2 years since her last stress test. Blood work showed white blood cell count 9.7, hemoglobin 11.9, platelets 225, sodium 140, BUN 31, creatinine 0.8, troponin normal 3, Proventil and BP 518, AST 17, ALT 13. EKG reportedly normal however not on chart. Chest pain currently improved. REVIEW OF SYSTEMS At the time of my exam: CONSTITUTIONAL: Denies fever or chills. CARDIOVASCULAR: +chest pain, no shortness of breath, orthopnea, PND or palpitations. RESPIRATORY: Denies cough. GASTROINTESTINAL: Denies abdominal pain, diarrhea, constipation, nausea or vomiting. MUSCULOSKELETAL: Denies myalgias. NEUROLOGIC: Denies numbness, tingling or weakness. ENDOCRINE: Denies fatigue, weight change, polydipsia or polyurina. GENITOURINARY: Denies burning, hematuria or urgency with micturation. HEMATOLOGIC: Denies history of anemia or bleeding. PHYSICAL EXAMINATION Vital signs reviewed. CONSTITUTIONAL: No apparent distress. HEENT: Head is normocephalic. Pupils are equal, round. Sclerae anicteric. Mucous membranes of the mouth are moist. No JVD. No carotid bruit. CHEST EXAMINATION: Lungs are clear to auscultation. +chest wall tenderness is noted on palpation. HEART EXAMINATION: Regular rate and rhythm. S1, S2 heard. No murmurs, gallops or rub. ABDOMEN: Soft, nontender. Positive bowel sounds. EXTREMITIES: 2+ peripheral pulses, no lower extremity edema and no calf tenderness. NEUROLOGIC EXAMINATION: Patient is awake, alert and oriented x3. ASSESSMENT 1. Atypical, reproducible left-sided chest pain. Does not appear cardiac in nature, troponins normal 3. Very reproducible and likely musculoskeletal 2. Atrial fibrillation on anticoagulation 3. Hypertension 4. Hyperlipidemia 5. Arm numbness and tingling, may be radiculopathy versus other 6. Diabetes mellitus 7. COPD 8. Tobacco abuse PLAN Chest pain appears very reproducible on exam. She is also having atypical pain, numbness and tingling down her arms, not currently however has been in the past. Symptoms appear atypical and not associated with any exertion. Troponin negative 3. Discussed possible stress testing on Sunday versus medical therapy and outpatient follow-up with outpatient stress testing and patient would prefer outpatient workup. This is reasonable as her chest pain appears atypical. We discussed that if chest pain recurs to seek medical attention. Past Medical History Past Medical History: Atrial Fibrillation, Asthma, Coronary Artery Disease (CAD), Chest Pain / Angina, COPD, CVA/TIA, Dementia, Fibromyalgia, GERD/Reflux, Hyperlipidemia, Hypertension, Memory Impairment, Myocardial Infarction ([place]), Osteoarthritis (OA), Pneumonia Additional Past Medical History / Comment(s): EARLY DEMENTIA WITH SOME SHORT TERM MEMORY LOSS, NEUROPATHY BILATERAL UPPER AND LOWER EXTREMITIES, CHRONIC BACK PAIN, DJD, CVA 2006, TIA 2007, BRONCHITIS, SINUS PROBLEMS AT TIMES, 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, BILATERAL TINNITIS, PAST L FOOT FRACTURES THAT HEALED INCORRECTLY, UTIs Last Myocardial Infarction Date:: vanessa History of Any Multi-Drug Resistant Organisms: None Reported Past Surgical History: Bladder Surgery, Cholecystectomy, Hysterectomy, Orthopedi c Surgery, Tonsillectomy, Tubal Ligation Additional Past Surgical History / Comment(s): 2013 CARDIAC CATH TX MEDICALLY, BENIGN OVARIAN TUMOR REMOVAL, BENIGN PERINEAL TUMOR REMOVAL, BILATERAL VOCAL CORDS STRIPPED D/T TUMORS, FIRST 2 FINGER r HAND PARTIAL AMP D/T INJURY, 2 VALDEZ DDER SUSPENSIONS, COLONOSCOPY/HEMORRHOIDECTOMY. Past Anesthesia/Blood Transfusion Reactions: Previous Problems w/ Anesthesia Additional Past Anesthesia/Blood Transfusion Reaction / Comment(s): difficulty waking in past. clausterphobia Past Psychological History: Anxiety, Depression Additional Psychological History / Comment(s): Pt lives with son right now with 1 cat. Pt uses a wheeled walker or a cane. Pt no longer drives, she takes the bus. She denies any suicidal thoughts/plans. Smoking Status: Current every day smoker Past Alcohol Use History: None Reported Additional Past Alcohol Use History / Comment(s): Started smoking at age 15 or 16 up to 2-1/2 packs per day and is currently down to 1ppd. Patient does give history of heavy alcohol abuse off and on in the past but had quit alcohol completely 3 years ago. She does smoke marijuana. Patient lives in an apartment building with 4 other adults. She uses a cane for ambulation. Past Drug Use History: None Reported Additional Drug Use History / Comment(s): Occasional marijuana use - Past Family History Mother Family Medical History: CVA/TIA Additional Family Medical History / Comment(s): Mother at age 73 from a brain stem stroke. Brother(s) Additional Family Medical History / Comment(s): Patient has 2 full brothers with no major medical problems. Patient does not have any sisters. Patient has 3 sons with no major medical problems. Father Family Medical History: Congestive Heart Failure (CHF), Myocardial Infarction ([place]) Additional Family Medical History / Comment(s): Father at age 76 from a massive heart attack. Medications and Allergies Home Medications Medication Instructions Recorded Confirmed Type QUEtiapine [SEROquel] 25 - 50 mg PO HS PRN 11/18/19 06/11/21 History Metoprolol Tartrate 25 mg PO BID 07/03/20 06/11/21 History hydroCHLOROthiazide 25 mg PO DAILY 07/03/20 06/11/21 History Apixaban [Eliquis] 5 mg PO BID #60 tab 07/07/20 06/11/21 Rx amLODIPine [Norvasc] 5 mg PO DAILY #60 tab 07/07/20 06/11/21 Rx Atorvastatin [Lipitor] 20 mg PO DAILY 05/25/21 06/11/21 History Ezetimibe [Zetia] 10 mg PO DAILY 05/25/21 06/11/21 History Omeprazole 40 mg PO AC-BID 05/25/21 06/11/21 History Ondansetron [Zofran] 4 - 8 mg PO BID PRN 05/25/21 06/11/21 History Albuterol Sulfate [Ventolin HFA] 2 puff INHALATION RT-Q4H PRN 06/11/21 06/11/21 History Baclofen [Lioresal] 5 mg PO TID PRN 06/11/21 06/11/21 History DULoxetine HCL [Cymbalta] 60 mg PO DAILY 06/11/21 06/11/21 History Dicyclomine [Bentyl] 10 mg PO TID PRN 06/11/21 06/11/21 History Donepezil [Aricept] 5 mg PO HS 06/11/21 06/11/21 History Meloxicam [Mobic] 15 mg PO DAILY PRN 06/11/21 06/11/21 History Umeclidinium [place] [Incruse 1 puff INHALATION RT-DAILY 06/11/21 06/11/21 H istory Ellipta] Allergies Allergy/AdvReac Type Severity Reaction Status Date / Time atorvastatin [From Lipitor] Allergy Unknown Verified 06/11/21 11:01 cephalexin monohydrate Allergy Rash/Hives Verified 06/11/21 11:01 [From Keflex] ciprofloxacin [From Cipro] Allergy Swelling Verified 06/11/21 11:01 Iodinated Contrast Media Allergy Dyspnea Verified 06/11/21 11:01 latex Allergy Rash/Hives Verified 06/11/21 11:01 oxytetracycline Allergy Rash/Hives Verified 06/11/21 11:01 [From Terramycin] Penicillins Allergy Rash/Hives Verified 06/11/21 11:01 Sulfa (Sulfonamide Allergy Rash/Hives Verified 06/11/21 11:01 Antibiotics) Physical Exam Vitals: Vital Signs Temp Pulse Pulse Resp BP BP Pulse Ox 06/11/21 11:18 98.5 F 67 18 108/65 93 L 06/11/21 11:05 98.3 F 86 18 138/78 97 06/11/21 08:43 76 18 129/70 97 06/11/21 07:43 97.8 F 95 19 129/104 99 Intake and Output 06/11/21 06/11/21 06/11/21 06:59 14:59 22:59 Other: # Voids 2 Weight 68.039 kg Results 06/11/21 08:10 06/11/21 08:10 Cardiac Enzymes 06/11/21 06/11/21 06/11/21 Range/Units 08:10 08:10 11:29 AST 17 (14-36) U/L Troponin I <0.012 <0.012 (0.000-0.034) ng/mL 06/11/21 Range/Units 14:57 AST (14-36) U/L Troponin I <0.012 (0.000-0.034) ng/mL Coagulation 06/11/21 Range/Units 08:10 PT 9.7 (9.0-12.0) sec APTT 21.9 L (22.0-30.0) sec CBC 06/11/21 Range/Units 08:10 WBC 9.7 (3.8-10.6) k/uL RBC 4.04 (3.80-5.40) m/uL Hgb 11.9 (11.4-16.0) gm/dL Hct 35.1 (34.0-46.0) % Plt Count 225 (150-450) k/uL Comprehensive Metabolic Panel 06/11/21 Range/Units 08:10 Sodium 140 (137-145) mmol/L Potassium 3.6 (3.5-5.1) mmol/L Chloride 102 (98-107) mmol/L Carbon Dioxide 32 H (22-30) mmol/L BUN 31 H (7-17) mg/dL Creatinine 0.86 (0.52-1.04) mg/dL Glucose 113 H (74-99) mg/dL Calcium 9.3 (8.4-10.2) mg/dL AST 17 (14-36) U/L ALT 13 (4-34) U/L Alkaline Phosphatase 94 (38-126) U/L Total Protein 5.8 L (6.3-8.2) g/dL Albumin 3.6 (3.5-5.0) g/dL Current Medications Generic Name Dose Route Start Last Admin Trade Name Freq PRN Reason Stop Dose Admin Albuterol/Ipratropium 3 ml 06/11/21 10:39 Ipratropium-Albuterol 3 Ml Neb INHALATION RT-QID PRN Shortness Of Breath Or Wheezing Amlodipine Besylate 5 mg 06/12/21 09:00 Amlodipine 5 Mg Tab PO DAILY [facility] Apixaban 5 mg 06/11/21 21:00 Apixaban 5 Mg Tab PO BID [facility] Protocol Aspirin 325 mg 06/12/21 09:00 Aspirin 325 Mg Tab PO DAILY [facility] Atorvastatin Calcium 20 mg 06/12/21 09:00 Atorvastatin 20 Mg Tab PO DAILY [facility] Baclofen 5 mg 06/11/21 10:39 Baclofen 10 Mg Tab PO TID PRN Pain Baclofen 5 mg 06/11/21 15:38 Baclofen 10 Mg Tab PO TID PRN Muscle Pain Dicyclomine HCl 10 mg 06/11/21 15:38 Dicyclomine 10 Mg Cap PO TID PRN ibs Donepezil HCl 5 mg 06/11/21 21:00 Donepezil 5 Mg Tab PO [facility] Duloxetine HCl 60 mg 06/12/21 09:00 Duloxetine Hcl 60 Mg Capsule.Dr PO DAILY [facility] Ezetimibe 10 mg 06/12/21 09:00 Ezetimibe 10 Mg Tab PO DAILY [facility] Hydrochlorothiazide 25 mg 06/12/21 09:00 Hydrochlorothiazide 25 Mg Tab PO DAILY [facility] Sodium Chloride 1,000 mls @ 75 mls/hr 06/11/21 07:51 06/11/21 08:34 Saline 0.9% IV 06/11/21 21:10 75 mls/hr .[id number] STA Administration Sodium Chloride 1,000 mls @ 100 mls/hr 06/11/21 10:45 06/11/21 11:48 Saline 0.9% IV 100 mls/hr .Q10H [facility] Administration Ipratropium [place] 0.5 mg 06/12/21 08:00 Ipratropium 0.5 Mg/2.5 Ml Nebu INHALATION RT-QID [facility] Metoprolol Tartrate 25 mg 06/11/21 21:00 Metoprolol Tartrate 25 Mg Tab PO BID [facility] Multivitamins 1 each 06/12/21 09:00 Multivitamins, Thera 1 Each Tab PO DAILY [facility] Nicotine 1 patch 06/11/21 15:45 06/11/21 16:05 Nicotine 21mg/24hr Patch TRANSDERM 1 patch DAILY [facility] Administration Nitroglycerin 0.4 mg 06/11/21 10:33 Nitroglycerin Sl Tabs 0.4 Mg Tab SUBLINGUAL Q5M PRN Chest Pain Ondansetron HCl 4 mg 06/11/21 10:39 Ondansetron 4 Mg Tab PO Q8HR PRN Nausea Pantoprazole Sodium 40 mg 06/11/21 17:30 06/11/21 16:06 Pantoprazole 40 Mg Tablet PO 40 mg BID-W/MEALS GISELE Administration Prednisone 40 mg 06/11/21 15:45 06/11/21 16:05 Prednisone 20 Mg Tab PO 40 mg DAILY [facility] Administration Quetiapine Fumarate 25 mg 06/11/21 21:00 Quetiapine 25 Mg Tab PO BID [facility] Intake and Output 06/11/21 06/11/21 06/11/21 06:59 14:59 22:59 Other: # Voids 2 Weight 68.039 kg Patient Weight 06/12/21 06:59 Weight 68.039 kg 06/11/21 08:10 06/11/21 08:10
[2021-06-11] MEDS: QUEtiapine 25 MG TAB PO SCH (20:26)
[2021-06-11] MEDS: APIXABAN 5 MG TAB PO SCH (20:26)
[2021-06-11] MEDS: METOPROLOL TARTRATE 25 MG TAB PO SCH (20:27)
[2021-06-11] MEDS ORDERED: DONEPEZIL 5 MG TAB PO SCH (21:00)
[2021-06-11] MEDS ORDERED: PRAVASTATIN SODIUM 80 MG TAB PO SCH (21:00)
[2021-06-12] MEDS: BACLOFEN 10 MG TAB PO PRN ×2 (03:44→08:37)
[2021-06-12] MEDS: IPRATROPIUM 0.5 MG/2.5 ML NEBU INHALATION SCH ×2 (07:21→11:01)
[2021-06-12 07:49] VITALS: BP 130/90; RESP 17; TEMP 97.5
[2021-06-12] MEDS: METOPROLOL TARTRATE 25 MG TAB PO SCH (08:37)
[2021-06-12] MEDS: predniSONE 20 MG TAB PO SCH (08:37)
[2021-06-12] MEDS: APIXABAN 5 MG TAB PO SCH (08:37)
[2021-06-12] MEDS: PANTOPRAZOLE 40 MG TABLET PO SCH (08:37)
[2021-06-12] MEDS: NICOTINE 21MG/24HR PATCH TRANSDERM SCH (08:38)
[2021-06-12] MEDS: QUEtiapine 25 MG TAB PO SCH (08:39)
[2021-06-12] MEDS: SODIUM CHLORIDE 0.9% 1,000 ML IV SCH (08:44)
[2021-06-12] MEDS ORDERED: ASPIRIN 325 MG TAB PO SCH (09:00)
[2021-06-12] MEDS ORDERED: ATORVASTATIN 20 MG TAB PO SCH (09:00)
[2021-06-12] MEDS ORDERED: DULoxetine HCL 60 MG CAPSULE.DR PO SCH (09:00)
[2021-06-12] MEDS ORDERED: PANTOPRAZOLE 40 MG TABLET PO SCH (09:00)
[2021-06-12] MEDS ORDERED: amLODIPine 5 MG TAB PO SCH (09:00)
[2021-06-12] MEDS ORDERED: EZETIMIBE 10 MG TAB PO SCH (09:00)
[2021-06-12] MEDS ORDERED: MULTIVITAMINS, THERA 1 EACH TAB PO SCH (09:00)
[2021-06-12] MEDS ORDERED: hydroCHLOROthiazide 25 MG TAB PO SCH (09:00)
[2021-06-12 10:23] LABS: Chol/HDL Ratio 3.79; LDL Cholesterol,Calculated 87.8 mg/dL (0.0-131.0); VLDL Calculation 29.2 mg/dL (5.00-40.00)
[2021-06-12 11:04] VITALS: PULSE 70
--- NOTE | 2021-06-12 15:24 | P.DS ---
Providers Date of admission: 06/11/21 10:33 Attending physician: Hi Vo MD Consults: 06/11/21 10:33 Consult Physician Urgent Consulting Provider: Roberto Christianson Consult Reason/Comments: Chest pain Do you want consulting provider notified?: Yes Primary care physician: Hi Vo MD Hospital Course: History of present illness 70 years old female with history of atrial fibrillation, history of asthma, COPD, coronary artery disease s/p cardiac cath in he did medically, history of CVA 2006. TIA in 2007, alcoholic liver disease, memory impairment, hypertension, hyperlipidemia, chronic back pain with degenerative disc disease with possible hemangioma on the liver, tobacco abuse comes in with on and off chest pain that started 1 week ago. Chest pain is central in character initially started in her wrist in the right upper extremity followed by numbness and tingling involving the upper extremity on the right which moved to the left upper extremity. Patient continued to have chest pain until yesterday when she had a sharp chest pain in the center and she decided to come to the ER. Patient is a poor historian and comes with [facility] to the clinic to help her with her medical conditions. Patient continues to smoke 1 pack a day and has dry cough and shortness of breath associated with her symptoms. In the ER patient had is afebrile pulse 67 respiratory rate 18 blood pressure 108/65 and saturating at 93% on room air labs suggestive of hemoglobin 11.9 CO2 of 32 BUN of 31 creatinine 0.8 glucose 113 troponin x2 -. Cardiology consult is placed EKG was ordered which no ST or T wave changes. Repeat EKG ordered. Chest x-ray is negative for any acute abnormality KUB x-ray suggestive of ileus. Prednisone 40 mg p.o. daily added for acute bronchitis as patient is wheezing on examination 06/12 patient examined bedside. Chest pain is gone. Cardiology evaluated the patient was suggested chest pain appearing atypical. With follow-up as outpatient with cardiology. Patient's breathing is improved heaviness of the chest is improved. On prednisone 40 mg daily to be continued at home. Patient with follow-up in the clinic for adjustment in her medication. Continue prednisone 40 mg for 1 week and baclofen for muscle spasm. Patient has an appointment with pain clinic for her nack pain . Patient's chest pain appears likely radiaing pain secondary to the degenerative disc disease Review of systems Review of system negative except for the above mentioned findings Physical exam CONSTITUTIONAL: Patient appears comfortable in no apparent distress. NECK: No JVD or lymph node enlargement. HEET: Unremarkable, conjunctivae/corneas clear. Sclera anicteric. Oral cavity no lesions. RESPIRATORY: improved air entry with no wheezing on deep breath. No crackles or rhonchi heard CARDIOVASCULAR: Regular rate and rhythm. No murmurs or gallops noted no rubs GASTROINTESTINAL: soft, non tender, no organomegaly. Bowel sounds are positive. Appears distended PSYCH: Denies any depression or anxiety. SKIN: No rashes NEUROLOGICAL: alert, oriented x 3, no focal deficits noted. Assessment and plan 1 acute substernal chest pain atypical secondary to acute bronchitis and degenerative disc disease. 2. Paroxysmal atrial fibrillation 3. Hypertension 4. Hyperlipidemia 5. COPD with acute exacerbation. 6. Chronic nicotine dependence 7. History of CVA/TIA, no residual deficits noted 8. Degenerative disc disease with significant occipital pain and lower back pain. 9. Early dementia with short-term memory loss 10. Alcoholic liver disease with liver lesion acute hemangioma based on CAT scan. 11. History of pancreatitis secondary to alcohol use. 12. History of peripheral neuropathy stable 13. Anxiety and depression Disposition home with homecare Patient Condition at Discharge: Stable Plan - Discharge Summary New Discharge Prescriptions: New Baclofen [Lioresal] 5 mg PO TID PRN #60 tab PRN Reason: Pain predniSONE [Deltasone] 40 mg PO DAILY #14 tab Continue QUEtiapine [SEROquel] 25 - 50 mg PO HS PRN PRN Reason: Insomnia Metoprolol Tartrate 25 mg PO BID hydroCHLOROthiazide 25 mg PO DAILY Apixaban [Eliquis] 5 mg PO BID #60 tab amLODIPine [Norvasc] 5 mg PO DAILY #60 tab Ezetimibe [Zetia] 10 mg PO DAILY Albuterol Sulfate [Ventolin HFA] 2 puff INHALATION RT-Q4H PRN PRN Reason: Shortness Of Breath Donepezil [Aricept] 5 mg PO HS DULoxetine HCL [Cymbalta] 60 mg PO DAILY Baclofen [Lioresal] 5 mg PO TID PRN PRN Reason: Muscle Pain Omeprazole 40 mg PO AC-BID Ondansetron [Zofran] 4 - 8 mg PO BID PRN PRN Reason: Nausea Atorvastatin [Lipitor] 20 mg PO DAILY Umeclidinium [place] [Incruse Ellipta] 1 puff INHALATION RT-DAILY Meloxicam [Mobic] 15 mg PO DAILY PRN PRN Reason: Pain Dicyclomine [Bentyl] 10 mg PO TID PRN PRN Reason: ibs Discharge Medication List QUEtiapine [SEROquel] 25 - 50 mg PO HS PRN 11/18/19 [History] Metoprolol Tartrate 25 mg PO BID 07/03/20 [History] hydroCHLOROthiazide 25 mg PO DAILY 07/03/20 [History] Apixaban [Eliquis] 5 mg PO BID #60 tab 07/07/20 [Rx] amLODIPine [Norvasc] 5 mg PO DAILY #60 tab 07/07/20 [Rx] Atorvastatin [Lipitor] 20 mg PO DAILY 05/25/21 [History] Ezetimibe [Zetia] 10 mg PO DAILY 05/25/21 [History] Omeprazole 40 mg PO AC-BID 05/25/21 [History] Ondansetron [Zofran] 4 - 8 mg PO BID PRN 05/25/21 [History] Albuterol Sulfate [Ventolin HFA] 2 puff INHALATION RT-Q4H PRN 06/11/21 [History] Baclofen [Lioresal] 5 mg PO TID PRN 06/11/21 [History] DULoxetine HCL [Cymbalta] 60 mg PO DAILY 06/11/21 [History] Dicyclomine [Bentyl] 10 mg PO TID PRN 06/11/21 [History] Donepezil [Aricept] 5 mg PO HS 06/11/21 [History] Meloxicam [Mobic] 15 mg PO DAILY PRN 06/11/21 [History] Umeclidinium [place] [Incruse Ellipta] 1 puff INHALATION RT-DAILY 06/11/21 [History] Baclofen [Lioresal] 5 mg PO TID PRN #60 tab 06/12/21 [Rx] predniSONE [Deltasone] 40 mg PO DAILY #14 tab 06/12/21 [Rx] Follow up Appointment(s)/Referral(s): Hi Vo MD [Primary Care Provider] - 1-2 days Bernal,Hilton, DO [STAFF PHYSICIAN] - 1 Week Patient Instructions/Handouts: Chest Pain (DC) Discharge Disposition: HOME WITH HOME HEALTH SERVICES
== END 2021-06-12 12:31 | disposition home health service (06) ==
LOC: EC 07:42 → 6NMEDSUR 10:33
PROVIDERS: ADMIT Internal Medicine; ATTEND Internal Medicine
DX: J44.1 Chronic obstructive pulmonary disease with (acute) exacerbation (principal); J44.0 Chronic obstructive pulmonary disease with (acute) lower respiratory infection; J20.9 Acute bronchitis, unspecified; I48.0 Paroxysmal atrial fibrillation; E86.0 Dehydration; E78.5 Hyperlipidemia, unspecified; F03.90 Unspecified dementia, unspecified severity, without behavioral disturbance, psychotic disturbance, mood disturbance, and anxiety; I10 Essential (primary) hypertension; I25.10 Atherosclerotic heart disease of native coronary artery without angina pectoris; M62.838 Other muscle spasm; M16.0 Bilateral primary osteoarthritis of hip; M41.9 Scoliosis, unspecified; I25.2 Old myocardial infarction; M79.7 Fibromyalgia; K21.9 Gastro-esophageal reflux disease without esophagitis; G89.29 Other chronic pain; M54.5 Low back pain; G62.9 Polyneuropathy, unspecified; K70.9 Alcoholic liver disease, unspecified; H93.13 Tinnitus, bilateral; F17.210 Nicotine dependence, cigarettes, uncomplicated; F40.240 Claustrophobia; D18.03 Hemangioma of intra-abdominal structures; F32.9 Major depressive disorder, single episode, unspecified; F41.9 Anxiety disorder, unspecified; Z79.1 Long term (current) use of non-steroidal anti-inflammatories (NSAID); Z79.01 Long term (current) use of anticoagulants; Z79.899 Other long term (current) drug therapy; Z88.0 Allergy status to penicillin; Z88.2 Allergy status to sulfonamides; Z88.8 Allergy status to other drugs, medicaments and biological substances; Z88.1 Allergy status to other antibiotic agents; Z91.041 Radiographic dye allergy status; Z91.040 Latex allergy status; Z86.73 Personal history of transient ischemic attack (TIA), and cerebral infarction without residual deficits; Z87.01 Personal history of pneumonia (recurrent); Z90.49 Acquired absence of other specified parts of digestive tract; Z90.710 Acquired absence of both cervix and uterus; Z98.51 Tubal ligation status; Z89.021 Acquired absence of right finger(s); Z98.890 Other specified postprocedural states; Z87.81 Personal history of (healed) traumatic fracture; Z87.19 Personal history of other diseases of the digestive system; Z86.59 Personal history of other mental and behavioral disorders; Z82.3 Family history of stroke; Z82.49 Family history of ischemic heart disease and other diseases of the circulatory system
CPT/HCPCS: 96360 ×2; 96361; 99285; 36415; 94640 ×2; 93005; 83880; 80061; 80053; 82550; 83690; 83735; 84484; 85025; 85610; 85730; 71046; 74018; G0378 ×2; S4990 ×2; J7512 ×2

== ENCOUNTER 2021-07-29 13:02 | Day surgery (SDC) | payer MEDICARE, OTHER ==
[2021-07-25 12:03] VITALS: BMI 31.6
[2021-07-29 13:25] VITALS: TEMP 97
[2021-07-29] MEDS ORDERED: ROPIVACAINE 5MG/ML 20ML VIAL ONE (13:38)
[2021-07-29] MEDS ORDERED: MIDAZOLAM 2 MG/2 ML VIAL ONE (13:38)
[2021-07-29] MEDS ORDERED: fentaNYL (PF) 50 MCG/ML 2 ML AMP ONE (13:38)
[2021-07-29] MEDS ORDERED: methylPREDNISolone ACETATE 40 MG/ML 1 ML VIAL ONE (13:38)
[2021-07-29] MEDS ORDERED: IV FLUID CONTINUATION 600 ML IV ONE (14:04)
--- NOTE | 2021-07-29 14:06 | P.PCN ---
Date of Procedure: 07/29/21 Procedure(s) Performed: PREOPERATIVE DIAGNOSIS:1- Cervical Spondylosis with Facet Arthropathy.without myelopathy. 2-occipital neuralgia POSTOPERATIVE DIAGNOSIS: 1-Cervical Spondylosis Facet Arthropathy. Without myelopathy. 2-occipital neuralgia. PROCEDURES: Diagnostic Bilateral C2 ,C3 medial branch blocks, with fluoroscopic guidance (fluoroscopy images available in radiology department ) Diagnostic bilateral third occipital nerve block under fluoroscopy guidance # 1st ANESTHESIA: Monitored anesthesia care ,as per anesthesia department. EBL: Minimal PROCEDURE INDICATION: The patient with neck pain secondary to cervical arthropathy unresponsive to more conservative treatments. PROCEDURE DESCRIPTION / TECHNIQUE: The patient was seen and identified in the preoperative area. Risks, benefits, complications, and alternatives were dis cussed with the patient, the patient agreed to proceed with the procedure and signed the consent. IV was started. Vital signs remained stable throughout the procedure. Patient was taken to the OR and time out was completed. The patient was placed in the prone position on the procedure table. A pillow was placed under the patients chest to increase the cervical interlaminar space. The cervical area was prepped and draped in the usual sterile fashion. Critical pause was taken. Vital signs were closely monitored during the procedure. Conscious sedation was used during the procedure to decrease patients anxiety. Using cross-table lateral fluoroscopy, the centroid of the trapezoid of right C2 ,C3, was identified, marked, and localized with 1% lidocaine 1 ml at each level for skin and Sub Q infiltrations . Subsequently, a 25 G 2 spinal needle was advanced guided by fluoroscopy to the centroid of the trapezoid of Right C2 ,C3, [place] tip position was confirmed at the centroid of the trapezoids of Right C2 , C3 , with anteroposterior fluoroscopy. Subsequently, 1 ml of preservative-free Ropivacaine 0.5% mixed with Depo-Medrol 20 mg and half ml of the mixture was injected after negative aspiration for blood and CSF. then to do the third occipital nerve block another 25-gauge needle was advanced under fluoroscopy and placed at the center of the facet joint on the right C2 , and C3 vertebral, after appropriate needle placement confirmed ropivacaine 0.5% half mL injected after negative aspiration,then [place] was then removed intact the same procedure was repeated at the left C2 ,C3 , the left side third occipital nerve nerve. COMPLICATIONS: No acute complications DISPOSITION / PLANS: The patient was placed in a supine position and transferred to the recovery area in a stable condition for observation and was discharged from the recovery room after meeting discharge criteria. Home discharge instructions given to the patient by the staff. The patient was reexamined prior to discharge. The patient will schedule a follow up in the clinic in 2-4 weeks.
--- NOTE | 2021-07-29 14:12 | FL ---
Fluoroscopy INDICATION: Pain FINDINGS: Fluoroscopy time: 11 seconds. Images obtained: 4. IMPRESSIONS: 1. Documentation of fluoroscopy.
[2021-07-29 14:23] VITALS: BP 125/81; PULSE 77; RESP 16
== END 2021-07-29 14:46 | disposition home or self-care (01) ==
LOC: ORPAIN 13:02
PROVIDERS: ATTEND Specialist
DX: M47.812 Spondylosis without myelopathy or radiculopathy, cervical region (principal); M54.81 Occipital neuralgia
CPT/HCPCS: 64490; 64491; J2250; J1030; J3010; J2795

== ENCOUNTER 2021-08-25 08:33 | Inpatient (IN) | payer MEDICARE, OTHER ==
[2021-08-25] MEDS ORDERED: SODIUM CHLORIDE 0.9% 1,000 ML IV STA (09:14)
[2021-08-25 09:15] LABS: Basophils % (A) 0 %; Eosinophils # (A) 0.1 k/uL (0-0.7); Eosinophils % (A) 1 %; HCT 39.2 % (34.0-46.0); HGB 12.8 gm/dL (11.4-16.0); Lymphocytes # (A) 1.4 k/uL (1.0-4.8); Lymphocytes % (A) 11 %; MCH 28.2 pg (25.0-35.0); MCHC 32.5 g/dL (31.0-37.0); MCV 86.6 fL (80.0-100.0); Mean Platelet Volume 8.1; Monocytes # (A) 0.5 k/uL (0-1.0); Monocytes % (A) 4 %; Neutrophils # (A) 10.7 k/uL (1.3-7.7); Neutrophils % (A) 84 %; Platelet Count 268 k/uL (150-450); RBC 4.53 m/uL (3.80-5.40); RDW 14.4 % (11.5-15.5); WBC 12.8 k/uL (3.8-10.6)
--- NOTE | 2021-08-25 09:16 | ED ---
General Adult HPI - General Chief complaint: Overdose Stated complaint: accidental overdose Time Seen by Provider: 08/25/21 08:43 Source: patient, EMS Mode of arrival: EMS - History of Present Illness Initial comments: Dictation was produced using [employer] dictation software. please excuse any grammatical, word or spelling errors. Chief Complaint: 70-year-old female presents to the emergency department for weakness History of Present Illness: 70-year-old female she lives at home alone. Patient is a poor historian. Patient was found by his son. She was found on the floor sleeping. Patient reports that she felt too weak. She was able to crawl around the house. Patient allegedly has history of overdosing on her prescribed medications. Patient takes multiple medications. She states that she fell backwards and hit her head. She complains of head pain. Denies any neck pain. No other pain anywhere else in her body. The ROS documented in this emergency department record has been reviewed and confirmed by me. Those systems with pertinent positive or negative responses have been documented in the HPI. All other systems are other negative and/or noncontributory. PHYSICAL EXAM: General Impression: Alert and oriented x3, not in acute distress HEENT: Mild tenderness to palpation over the occiput, extra-ocular movements intact, pupils equal and reactive to light bilaterally, dry mucous membranes Cardiovascular: Heart regular rate and rhythm Chest: Able to complete full sentences, no retractions, no tachypnea Abdomen: abdomen soft, non-tender, non-distended, no organomegaly Musculoskeletal: Pulses present and equal in all extremities, no peripheral edema Motor: no focal deficits noted Neurological: CN II-XII grossly intact, no focal motor or sensory deficits noted Skin: Intact with no visualized rashes Psych: Normal affect and mood ED course: 70-year-old female presents to us found at home on the ground. She has a history of overdosing on her prescribed medications. vital signs upon arrival shows 82% on room air, rest of vital signs within acceptable limits. Patient placed on supplemental oxygen. She has dry mucous membranes. She allegedly fell recently. She complains of some mild head pain. Computed tomography scan of the head and C-spine is unremarkable for any traumatic processes. Pelvis x-ray and chest x-ray are negative. Laboratory evaluation shows mild stress leukocytosis. Coag panel is negative. Metabolic panel shows elevated renal markers with a creatinine of 1.4. Patient has no history of kidney disease. Patient is in rhabdomyolysis with a creatinine kinase 1511. Troponin is elevated 0.173. This is likely secondary to the myopathy from the rhabdo. Patient has no ACS symptoms. Urinalysis is unremarkable. Tox labs are negative. Negative for coronavirus. Patient is satting well 97% on the monitor. Chest pain signs of respiratory distress. Patient given IV bolus. Patient will be admitted to Dr. Horne. Consultation made to nephrology. EKG interpretation: Ventricular rate 61, sinus rhythm,. 150, QRS 86, QTC 463. No [place] prolongation, no QTC prolongation, no ST or T-wave changes noted. Overall, this EKG is unremarkable - Related Data Home Medications Medication Instructions Recorded Confirmed QUEtiapine [SEROquel] 25 mg PO BID 11/18/19 08/25/21 Metoprolol Tartrate 25 mg PO BID 07/03/20 08/25/21 hydroCHLOROthiazide 25 mg PO DAILY 07/03/20 08/25/21 Ezetimibe [Zetia] 10 mg PO DAILY 05/25/21 08/25/21 Omeprazole 40 mg PO AC-BID 05/25/21 08/25/21 Ondansetron [Zofran] 4 - 8 mg PO BID PRN 05/25/21 08/25/21 DULoxetine HCL [Cymbalta] 60 mg PO DAILY 06/11/21 08/25/21 Dicyclomine [Bentyl] 10 mg PO TID PRN 06/11/21 08/25/21 Donepezil [Aricept] 5 mg PO HS 06/11/21 08/25/21 Umeclidinium [place] [Incruse 1 puff INHALATION RT-DAILY 06/11/21 08/25/21 Ellipta] Ibuprofen [Motrin] 600 mg PO Q8HR 08/25/21 08/25/21 Morphine Sulfate [Ms Contin] 15 mg PO Q8HR 08/25/21 08/25/21 Previous Rx's Medication Instructions Recorded Apixaban [Eliquis] 5 mg PO BID #60 tab 07/07/20 amLODIPine [Norvasc] 5 mg PO DAILY #60 tab 07/07/20 Allergies Allergy/AdvReac Type Severity Reaction Status Date / Time atorvastatin [From Lipitor] Allergy Unknown Verified 08/25/21 11:23 cephalexin monohydrate Allergy Rash/Hives Verified 08/25/21 11:23 [From Keflex] ciprofloxacin [From Cipro] Allergy Swelling Verified 08/25/21 11:23 Iodinated Contrast Media Allergy Dyspnea Verified 08/25/21 11:23 latex Allergy Rash/Hives Verified 08/25/21 11:23 oxytetracycline Allergy Rash/Hives Verified 08/25/21 11:23 [From Terramycin] Penicillins Allergy Rash/Hives Verified 08/25/21 11:23 Sulfa (Sulfonamide Allergy Rash/Hives Verified 08/25/21 11:23 Antibiotics) Review of Systems ROS Statement: Those systems with pertinent positive or pertinent negative responses have been documented in the HPI. ROS Other: All systems not noted in ROS Statement are negative. Past Medical History Past Medical History: Atrial Fibrillation, Asthma, Coronary Artery Disease (CAD), Chest Pain / Angina, COPD, CVA/TIA, Dementia, Fibromyalgia, GERD/Reflux, Hyperlipidemia, Hypertension, Memory Impairment, Myocardial Infarction (HI), Ost eoarthritis (OA), Pneumonia Additional Past Medical History / Comment(s): SOME SHORT TERM MEMORY LOSS, NEUROPATHY BILATERAL UPPER AND LOWER EXTREMITIES, CHRONIC BACK PAIN, DJD, CVA 2006, TIA 2007, BRONCHITIS, SINUS PROBLEMS AT TIMES, 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, BILATERAL TINNITIS, PAST L FOOT FRACTURES THAT HEALED INCORRECTLY, UTIs Last Myocardial Infarction Date:: vanessa History of Any Multi-Drug Resistant Organisms: None Reported Past Surgical History: Bladder Surgery, Cholecystectomy, Heart Catheterization, Hysterectomy, Orthopedic Surgery, Tonsillectomy, Tubal Ligation Additional Past Surgical History / Comment(s): 2013 CARDIAC CATH TX MEDICALLY, BENIGN OVARIAN TUMOR REMOVAL, BENIGN PERINEAL TUMOR REMOVAL, BILATERAL VOCAL CORDS STRIPPED D/T TUMORS, FIRST 2 FINGER r HAND PARTIAL AMP D/T INJURY, 2 BLADDER SUSPENSIONS, COLONOSCOPY/HEMORRHOIDECTOMY. Past Anesthesia/Blood Transfusion Reactions: Previous Problems w/ Anesthesia Additional Past Anesthesia/Blood Transfusion Reaction / Comment(s): difficulty waking in past. claustrophobia Past Psychological History: Anxiety, Depression Smoking Status: Current every day smoker - Past Family History Mother Family Medical History: CVA/TIA Additional Family Medical History / Comment(s): Mother at age 73 from a b rain stem stroke. Brother(s) Additional Family Medical History / Comment(s): Patient has 2 full brothers with no major medical problems. Patient does not have any sisters. Patient has 3 sons with no major medical problems. Father Family Medical History: Congestive Heart Failure (CHF), Myocardial Infarction (HI) Additional Family Medical History / Comment(s): Father at age 76 from a massive heart attack. Course Vital Signs 08/25/21 08:37 Temperature 98 F Pulse Rate 63 Respiratory 16 Rate Blood Pressure 137/64 O2 Sat by Pulse 82 L Oximetry Medical Decision Making - Lab Data Result diagrams: 08/25/21 08:57 08/25/21 08:57 Lab Results 08/25/21 08/25/21 08/25/21 Range/Units 08:57 08:57 08:57 WBC 12.8 H (3.8-10.6) k/uL RBC 4.53 (3.80-5.40) m/uL Hgb 12.8 (11.4-16.0) gm/dL Hct 39.2 (34.0-46.0) % MCV 86.6 (80.0-100.0) fL MCH 28.2 (25.0-35.0) pg MCHC 32.5 (31.0-37.0) g/dL RDW 14.4 (11.5-15.5) % Plt Count 268 (150-450) k/uL MPV 8.1 Neutrophils % 84 % Lymphocytes % 11 % Monocytes % 4 % Eosinophils % 1 % Basophils % 0 % Neutrophils # 10.7 H (1.3-7.7) k/uL Lymphocytes # 1.4 (1.0-4.8) k/uL Monocytes # 0.5 (0-1.0) k/uL Eosinophils # 0.1 (0-0.7) k/uL Basophils # 0.0 (0-0.2) k/uL PT 10.7 (9.0-12.0) sec INR 1.0 (<1.2) APTT 23.4 (22.0-30.0) sec Sodium 139 (137-145) mmol/L Potassium 3.8 (3.5-5.1) mmol/L Chloride 103 (98-107) mmol/L Carbon Dioxide 26 (22-30) mmol/L Anion Gap 10 mmol/L BUN 36 H (7-17) mg/dL Creatinine 1.84 H (0.52-1.04) mg/dL Est GFR (CKD-EPI)AfAm 32 (>60 ml/min/1.73 sqM) Est GFR (CKD-EPI)NonAf 27 (>60 ml/min/1.73 sqM) Glucose 148 H (74-99) mg/dL Calcium 9.0 (8.4-10.2) mg/dL Magnesium 1.7 (1.6-2.3) mg/dL Total Bilirubin 0.6 (0.2-1.3) mg/dL AST 102 H (14-36) U/L ALT 69 H (4-34) U/L Alkaline Phosphatase 120 (38-126) U/L Creatine Kinase 1511 H* (30-135) U/L Troponin I (0.000-0.034) ng/mL Total Protein 6.1 L (6.3-8.2) g/dL Albumin 3.7 (3.5-5.0) g/dL Urine Color Urine Appearance (Clear) Urine pH (5.0-8.0) Ur Specific [place] (1.001-1.035) Urine Protein (Negative) Urine Glucose (UA) (Negative) Urine Ketones (Negative) Urine Blood (Negative) Urine Nitrite (Negative) Urine Bilirubin (Negative) Urine Urobilinogen (<2.0) mg/dL Ur Leukocyte Esterase (Negative) Urine RBC (0-5) /hpf Urine WBC (0-5) /hpf Ur Squamous Epith Cells (0-4) /hpf Hyaline Casts (0-2) /lpf Urine Mucus (None) /hpf Salicylates <1.0 mg/dL Acetaminophen <10.0 ug/mL Serum Alcohol <10 mg/dL Influenza Type A (PCR) (Not Detectd) Influenza Type B (PCR) (Not Detectd) RSV (PCR) (Not Detectd) SARS-CoV-2 (PCR) (Not Detectd) 08/25/21 08/25/21 08/25/21 Range/Units 08:57 09:56 10:17 WBC (3.8-10.6) k/uL RBC (3.80-5.40) m/uL Hgb (11.4-16.0) gm/dL Hct (34.0-46.0) % MCV (80.0-100.0) fL MCH (25.0-35.0) pg MCHC (31.0-37.0) g/dL RDW (11.5-15.5) % Plt Count (150-450) k/uL MPV Neutrophils % % Lymphocytes % % Monocytes % % Eosinophils % % Basophils % % Neutrophils # (1.3-7.7) k/uL Lymphocytes # (1.0-4.8) k/uL Monocytes # (0-1.0) k/uL Eosinophils # (0-0.7) k/uL Basophils # (0-0.2) k/uL PT (9.0-12.0) sec INR (<1.2) APTT (22.0-30.0) sec Sodium (137-145) mmol/L Potassium (3.5-5.1) mmol/L Chloride (98-107) mmol/L Carbon Dioxide (22-30) mmol/L Anion Gap mmol/L BUN (7-17) mg/dL Creatinine (0.52-1.04) mg/dL Est GFR (CKD-EPI)AfAm (>60 ml/min/1.73 sqM) Est GFR (CKD-EPI)NonAf (>60 ml/min/1.73 sqM) Glucose (74-99) mg/dL Calcium (8.4-10.2) mg/dL Magnesium (1.6-2.3) mg/dL Total Bilirubin (0.2-1.3) mg/dL AST (14-36) U/L ALT (4-34) U/L Alkaline Phosphatase (38-126) U/L Creatine Kinase (30-135) U/L Troponin I 0.173 H* (0.000-0.034) ng/mL Total Protein (6.3-8.2) g/dL Albumin (3.5-5.0) g/dL Urine Color Yellow Urine Appearance Clear (Clear) Urine pH 5.5 (5.0-8.0) Ur Specific [place] 1.017 (1.001-1.035) Urine Protein Trace H (Negative) Urine Glucose (UA) Negative (Negative) Urine Ketones Negative (Negative) Urine Blood Trace H (Negative) Urine Nitrite Negative (Negative) Urine Bilirubin Negative (Negative) Urine Urobilinogen <2.0 (<2.0) mg/dL Ur Leukocyte Esterase Negative (Negative) Urine RBC 1 (0-5) /hpf Urine WBC 1 (0-5) /hpf Ur Squamous Epith Cells <1 (0-4) /hpf Hyaline Casts 5 H (0-2) /lpf Urine Mucus Rare H (None) /hpf Salicylates mg/dL Acetaminophen ug/mL Serum Alcohol mg/dL Influenza Type A (PCR) Not Detected (Not Detectd) Influenza Type B (PCR) Not Detected (Not Detectd) RSV (PCR) Not Detected (Not Detectd) SARS-CoV-2 (PCR) Not Detected (Not Detectd) Disposition Clinical Impression: Rhabdomyolysis, Dehydration, Weakness Disposition: ADMITTED IP TO THIS [facility] Condition: Fair Referrals: Hi Vo MD [Primary Care Provider] - 1-2 days
[2021-08-25 09:29] LABS: Partial Thromboplastin Time 23.4 sec (22.0-30.0); Prothrombin Time 10.7 sec (9.0-12.0)
[2021-08-25 09:32] LABS: ALT 69 U/L (4-34); AST 102 U/L (14-36); Acetaminophen <10.0 ug/mL; African American GFR (CKD) 32 (>60 ml/min/1.73 sqM); Albumin 3.7 g/dL (3.5-5.0); Alcohol <10 mg/dL; Alkaline Phosphatase 120 U/L (38-126); Anion Gap 10 mmol/L; Blood Urea Nitrogen 36 mg/dL (7-17); Carbon Dioxide 26 mmol/L (22-30); Chloride 103 mmol/L (98-107); Glucose 148 mg/dL (74-99); Magnesium 1.7 mg/dL (1.6-2.3); Non-African American GFR(CKD) 27 (>60 ml/min/1.73 sqM); Potassium 3.8 mmol/L (3.5-5.1); Salicylate <1.0 mg/dL; Sodium 139 mmol/L (137-145); Total Bilirubin 0.6 mg/dL (0.2-1.3); Total Protein 6.1 g/dL (6.3-8.2)
--- NOTE | 2021-08-25 09:53 | XR ---
EXAMINATION TYPE: XR chest 1V portable DATE OF EXAM: 08/25/2021 COMPARISON: Chest x-ray June 11, 2021 HISTORY: Altered mental status and weakness. TECHNIQUE: Single frontal view of the chest is obtained. FINDINGS: There is no suspicious focal air space opacity, pleural effusion, or pneumothorax seen. T he cardiac silhouette size is mildly enlarged. Overlying EKG leads. The osseous structures are intac t. IMPRESSION: Mild Cardiomegaly without acute pulmonary process.
--- NOTE | 2021-08-25 09:54 | XR ---
EXAMINATION TYPE: XR pelvis AP view DATE OF EXAM: 08/25/2021 CLINICAL HISTORY: Fall injury with pain TECHNIQUE: A single AP view of the pelvis is obtained. COMPARISON: CT abdomen and pelvis July 06, 2020. FINDINGS: There is no acute fracture/dislocation evident in the pelvis. The hip and sacroiliac join ts appear symmetric and unremarkable. Pubic symphysis shows narrowing and sclerosis. Single left-side d pelvic phlebolith. IMPRESSION: There is no acute fracture or dislocation in the pelvis.
--- NOTE | 2021-08-25 09:55 | CT ---
EXAMINATION TYPE: CT brain daily wo con DATE OF EXAM: 08/25/2021 COMPARISON: 02/16/2021 HISTORY: Altered mental status, accidental overdose CT DLP: 1252.8 mGycm, Automated exposure control for dose reduction was used. CONTRAST: Patient injected with 0 mL of Isovue 300. CT of the brain is performed utilizing 3 mm thick sections through the posterior fossa and 3 mm thick sections through the remaining calvarium. Study is performed within 24 hours of arrival to the hospital. No abnormal hyperdensity is present to suggest an acute intracranial hemorrhage. No mass lesion is evident. No acute infarcts are evident. Ventricles and sulci are appropriate for the patient age. Paranasal sinuses and mastoid air cells within the [id number] are clear. IMPRESSIONS: 1. No acute intracranial process. CT cervical spine. COMPARISON: 02/16/2021 CT of the cervical spine is performed in the axial plane at 2 mm thick sections. Reconstructed image s in the coronal, and sagittal plane are reviewed on the computer. No acute fractures are evident. There is mild scoliosis present. Disc heights are preserved. Vertebral body heights are preserved. No spinal canal stenosis is evident. No neural foraminal stenosis is evident. IMPRESSIONS: 1. Mild scoliosis. 2. No acute osseous abnormality.
[2021-08-25 10:08] LABS: Creatine Kinase 1511 U/L (30-135)
[2021-08-25 10:45] LABS: Appearance,Urine Clear (Clear); Bilirubin,Urine Negative (Negative); Blood,Urine Trace (Negative); Color,Urine Yellow; Glucose,Urine (UA) Negative (Negative); Hyaline Casts,Urine 5 /lpf (0-2); Ketones,Urine Negative (Negative); Leukocyte Esterase,Urine Negative (Negative); Mucus,Urine Rare /hpf; Nitrite,Urine Negative (Negative); PH, Urine 5.5 (5.0-8.0); Protein,Urine Trace (Negative); RBC,Urine 1 /hpf (0-5); Specific Gravity,Urine 1.017 (1.001-1.035); Squamous Epithelial Cell,Urine <1 /hpf (0-4); Urobilinogen,Urine <2.0 mg/dL (<2.0); WBC,Urine 1 /hpf (0-5)
[2021-08-25] MEDS ORDERED: ACETAMINOPHEN TAB 325 MG TAB PO PRN (11:53)
[2021-08-25] MEDS ORDERED: NALOXONE 0.4 MG/ML 1 ML VIAL IV PRN (11:53)
[2021-08-25] MEDS: SODIUM CHLORIDE 0.9% 1,000 ML IV SCH ×2 (12:06→20:39)
[2021-08-25 12:21] LABS: Amphetamine Screen,Urine Not Detected (NotDetected); Barbiturate Screen,Urine Not Detected (NotDetected); Benzodiazepines Screen,Urine Not Detected (NotDetected); Cocaine Screen,Urine Not Detected (NotDetected); Methadone Screen, Urine Not Detected (NotDetected); Opiate Screen,Urine Detected (NotDetected); Oxycodone Screen, Urine Not Detected (NotDetected); Phencyclidine Screen,Urine Not Detected (NotDetected); Tricyclic Antidepressant,Urine Detected (NotDetected); Urn Cannabinoid Scrn Not Detected (NotDetected)
[2021-08-25] MEDS ORDERED: ONDANSETRON 4 MG TAB PO PRN (13:06)
[2021-08-25] MEDS ORDERED: DICYCLOMINE 10 MG CAP PO PRN (13:06)
--- NOTE | 2021-08-25 13:07 | P.HPIM ---
History of Present Illness H&P Date: 08/25/21 Chief Complaint: Severe rhabdomyolysis, possible non-ST CO, acute renal injury, CAD, COPD HISTORY OF PRESENT ILLNESS 7-year-old female one of Dr. Vo's patient with multiple medical problem was known to have history of COPD, CAD, multiple TIA and CVA, history of dementia, fibromyalgia, previous history of CO with significant short-term memory loss who apparently live home by herself. She woke up this morning try to get out of bed had extreme pain and discomfort in all extremity and had very difficult time ambulating, This Finally Made It to See His Mom and with His Help She Get Out Of Bed Try to Walk to the Bathroom She Tipped Backwards and Fell off Also Try to Walk Again Fell One More Time Patient Had Generalized Muscle Pain All over She Was Not Acting Herself She Was More Confused the Son Major Concern at the Time Specially with His Mom Been on Some Any Prescribed Medication That She Might Be Overdosing and Medication or Overmedicated. He Ended up Calling 911 and Brought Her to the Emergency Department by EMS, Still Having Slight Bit of Problem with Her Memory at the Time but More Problem with Ambulating and Walking, surpris ingly CK was 1511 with troponin was 0.173 lactic acid 2.1 significant declining kidney function compared to before, no infection was found at the time drug screen was positive for opiates and twice IV anti-depression which patient is taking all in prescription medication. With the severity of her symptoms including rhabdomyolysis, acute kidney failure, non-ST CO patient be admitted to the hospital, CK with troponin 3 to be done, consult cardiology watch patient on wet washer machine continue to watch her CK continue IV hydration to improve the kidney function especially with the severity of the rhabdomyolysis at this point. REVIEW OF SYSTEMS Constitutional: No fever, no chills, no night sweats. No weight change. No weakness, fatigue or lethargy. No daytime sleepiness. EENT: No headache. No blurred vision or double vision, no loss of vision. No loss of Hearing, no ringing in the ears, no dizziness. No nasal drainage or congestion. No epistaxis. No sore throat. Lungs: Significant shortness of breath with mild cough wheezes. Cardiovascular: Positive chest discomfort with slight shortness of breath positive PND orthopnea palpitation, positive lightheadedness and slight dizziness no episode of syncope. Not clear whether patient is having any arrhythmia or not this. Abdominal: No abdominal pain. No nausea, vomiting. No diarrhea. No constipation. No bloody or tarry stools.. No loss of appetite. Genitourinary: No dysuria, increased frequency, urgency. And mild incontinence. Musculoskeletal: Significant pain and discomfort in the back and tired muscular system including the back the shoulder the thigh the neck and so on. Integumentary: No wounds, no lesions. No rash or pruritus. No unusual bruising. No change in hair or nails. Neurologic: No aphasia. No facial droop. Slight confusion and mild altered mental status. No head injury. No headache. No paralysis. No paresthesia. Psychiatric: Positive depression with mild anxiety. Endocrine: No abnormal blood sugars. No weight change. No excessive sweating or thirst. No cold intolerance. SOCIAL HISTORY She smokes pack a day for over 30 years, does not drink alcohol, she does might want on almost regular basis, she is use CPAP at home, nebulizer and oxygen. FAMILY HISTORY Patient has 3 children are all living and well, 2 brothers with no major medical problem, mother a 72 from cancer, father 68 from CAD. PHYSICAL EXAMINATION Gen: This is 70-year-old laying in bed looks older than her age still in mild wheezes at the time of examination mildly confused and had problem been oriented to time and person. HEENT: Head is atraumatic, normocephalic. Pupils equal, round. Sclerae is ani cteric. NECK: Supple. No JVD. No lymphadenopathy. No thyromegaly. LUNGS: Decreased breath some Rhonchi Plasma Mild Expiratory Wheezes. HEART: Regular rhythm and rate soreness to positive S3 positive PVCs with mild arrhythmia and irregularity. ABDOMEN: Soft. Bowel sounds are present. No masses. No tenderness. EXTREMITIES: Trace edema of the lower extremity generalized arthralgia and myalgia significant pain and discomfort in all 4 extremities. NEUROLOGICAL: Patient is awake, alert significant confusion. Cranial nerves 2 through 12 are grossly intact. ASSESSMENT AND PLAN 1. Non-ST CO: Patient troponin was elevated no change in EKG this point, patient is known to have history of cardiac disease will be admitted to the hospital seeing cardiology CK with troponin 3 be done we'll keep patient on wet washer machine. Other possibility the patient might have slight CO or arrhythmia had caused her to have worsening symptoms with infusion and probably pass out related to it with made patient had mild rhabdomyolysis the time. 2. Rhabdomyolysis: Continue hydration CK will be done by tomorrow morning continue to watch for any worsening symptom. 3. Acute kidney injury: Most likely ATN from rhabdomyolysis, continue hydration repeat CMP tomorrow. 4. Atherosclerotic heart disease: Patient remain on metoprolol titrate 25 g twice a day, Zetia 10 mg daily, Eliquis 5 mg twice a day, amlodipine 5 mg a day. 5. COPD: Was slightly bit worsening symptoms at this point, continue using DuoNeb as needed. 6. Chronic pain syndrome: Patient apparently hasn't MS Contin 15 mg 3 times a day along with ibuprofen 6 mg 3 times a day still on duloxetine 60 mg daily as well. 7. Hypertension: Remain on amlodipine 5 mg a day, along with metoprolol 25 mg twice a day and hydrochlorothiazide. 8. Hyperlipidemia: Apparently patient is not able to tolerate any statin she is on Zetia 10 mg a day only. 9. ? Of A. fib with RVR: Patient remain on Eliquis 5 mg twice a day and metoprolol titrate 25 mg twice a day. 10. Worsening dementia: Patient remain on Aricept 5 mg daily continue medication still on circumflex well 25 g twice a day as well. 11 GI prophylaxis: Patient will be on omeprazole 40 mg twice a day. 12 DVT prophylaxis: Patient remain on Eliquis at this point. 13. COVID-19 testing, was negative. Patient will be admitted to the hospital for a minimum of 2 night stay. Past Medical History Past Medical History: Atrial Fibrillation, Asthma, Coronary Artery Disease (CAD), Chest Pain / Angina, COPD, CVA/TIA, Dementia, Fibromyalgia, GERD/Reflux, Hyperlipidemia, Hypertension, Memory Impairment, Myocardial Infarction ([place]), Osteoarthritis (OA), Pneumonia Additional Past Medical History / Comment(s): SOME SHORT TERM MEMORY LOSS, NEUROPATHY BILATERAL UPPER AND LOWER EXTREMITIES, CHRONIC BACK PAIN, DJD, CVA 2006, TIA 2007, BRONCHITIS, SINUS PROBLEMS AT TIMES, 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, BILATERAL TINNITIS, PAST L FOOT FRACTURES THAT HEALED INCORRECTLY, UTIs Last Myocardial Infarction Date:: vanessa History of Any Multi-Drug Resistant Organisms: None Reported Past Surgical History: Bladder Surgery, Cholecystectomy, Heart Catheterization, Hysterectomy, Orthopedic Surgery, Tonsillectomy, Tubal Ligation Additional Past Surgical History / Comment(s): 2013 CARDIAC CATH TX MEDICALLY, BENIGN OVARIAN TUMOR REMOVAL, BENIGN PERINEAL TUMOR REMOVAL, BILATERAL VOCAL CORDS STRIPPED D/T TUMORS, FIRST 2 FINGER r HAND PARTIAL AMP D/T INJURY, 2 BLADDER SUSPENSIONS, COLONOSCOPY/HEMORRHOIDECTOMY. Past Anesthesia/Blood Transfusion Reactions: Previous Problems w/ Anesthesia Additional Past Anesthesia/Blood Transfusion Reaction / Comment(s): difficulty waking in past. claustrophobia Past Psychological History: Anxiety, Depression Smoking Status: Current every day smoker - Past Family History Mother Family Medical History: CVA/TIA Additional Family Medical History / Comment(s): Mother at age 73 from a brain stem stroke. Brother(s) Additional Family Medical History / Comment(s): Patient has 2 full brothers with no major medical problems. Patient does not have any sisters. Patient has 3 sons with no major medical problems. Father Family Medical History: Congestive Heart Failure (CHF), Myocardial Infarction ([place]) Additional Family Medical History / Comment(s): Father at age 76 from a massive heart attack. Medications and Allergies Home Medications Medication Instructions Recorded Confirmed Type QUEtiapine [SEROquel] 25 mg PO BID 11/18/19 08/25/21 History Metoprolol Tartrate 25 mg PO BID 07/03/20 08/25/21 History hydroCHLOROthiazide 25 mg PO DAILY 07/03/20 08/25/21 History Apixaban [Eliquis] 5 mg PO BID #60 tab 07/07/20 08/25/21 Rx amLODIPine [Norvasc] 5 mg PO DAILY #60 tab 07/07/20 08/25/21 Rx Ezetimibe [Zetia] 10 mg PO DAILY 05/25/21 08/25/21 History Omeprazole 40 mg PO AC-BID 05/25/21 08/25/21 History Ondansetron [Zofran] 4 - 8 mg PO BID PRN 05/25/21 08/25/21 History DULoxetine HCL [Cymbalta] 60 mg PO DAILY 06/11/21 08/25/21 History Dicyclomine [Bentyl] 10 mg PO TID PRN 06/11/21 08/25/21 History Donepezil [Aricept] 5 mg PO HS 06/11/21 08/25/21 History Umeclidinium [place] [Incruse 1 puff INHALATION RT-DAILY 06/11/21 08/25/21 History Ellipta] Ibuprofen [Motrin] 600 mg PO Q8HR 08/25/21 08/25/21 History Morphine Sulfate [Ms Contin] 15 mg PO Q8HR 08/25/21 08/25/21 History Allergies Allergy/AdvReac Type Severity Reaction Status Date / Time atorvastatin [From Lipitor] Allergy Unknown Verified 08/25/21 11:23 cephalexin monohydrate Allergy Rash/Hives Verified 08/25/21 11:23 [From Keflex] ciprofloxacin [From Cipro] Allergy Swelling Verified 08/25/21 11:23 Iodinated Contrast Media Allergy Dyspnea Verified 08/25/21 11:23 latex Allergy Rash/Hives Verified 08/25/21 11:23 oxytetracycline Allergy Rash/Hives Verified 08/25/21 11:23 [From Terramycin] Penicillins Allergy Rash/Hives Verified 08/25/21 11:23 Sulfa (Sulfonamide Allergy Rash/Hives Verified 08/25/21 11:23 Antibiotics) Physical Exam Vitals: Vital Signs Temp Pulse Resp BP Pulse Ox 08/25/21 12:07 67 18 144/81 96 08/25/21 08:37 98 F 63 16 137/64 82 L Intake and Output 08/24/21 08/25/21 08/25/21 22:59 06:59 14:59 Other: Weight 86.183 kg Results CBC & Chem 7: 08/25/21 08:57 08/25/21 08:57 Labs: Abnormal Lab Results - Last 24 Hours (Table) 08/25/21 08/25/21 08/25/21 Range/Units 08:57 08:57 08:57 WBC 12.8 H (3.8-10.6) k/uL Neutrophils # 10.7 H (1.3-7.7) k/uL BUN 36 H (7-17) mg/dL Creatinine 1.84 H (0.52-1.04) mg/dL Glucose 148 H (74-99) mg/dL Osmolality 302 H (280-301) mosm/kg Plasma Lactic Acid Vinny 2.1 H* (0.7-2.0) mmol/L AST 102 H (14-36) U/L ALT 69 H (4-34) U/L Creatine Kinase 1511 H* (30-135) U/L Troponin I (0.000-0.034) ng/mL Total Protein 6.1 L (6.3-8.2) g/dL Urine Protein (Negative) Urine Blood (Negative) Hyaline Casts (0-2) /lpf Urine Mucus (None) /hpf Urine Opiates Screen (NotDetected) U Tricyclic Antidepress (NotDetected) 08/25/21 08/25/21 08/25/21 Range/Units 08:57 10:17 11:59 WBC (3.8-10.6) k/uL Neutrophils # (1.3-7.7) k/uL BUN (7-17) mg/dL Creatinine (0.52-1.04) mg/dL Glucose (74-99) mg/dL Osmolality (280-301) mosm/kg Plasma Lactic Acid Vinny (0.7-2.0) mmol/L AST (14-36) U/L ALT (4-34) U/L Creatine Kinase (30-135) U/L Troponin I 0.173 H* (0.000-0.034) ng/mL Total Protein (6.3-8.2) g/dL Urine Protein Trace H (Negative) Urine Blood Trace H (Negative) Hyaline Casts 5 H (0-2) /lpf Urine Mucus Rare H (None) /hpf Urine Opiates Screen Detected H (NotDetected) U Tricyclic Antidepress Detected H (NotDetected)
[2021-08-25 16:07] LABS: Basophils % (A) 0 %; Eosinophils # (A) 0.1 k/uL (0-0.7); Eosinophils % (A) 1 %; HCT 37.5 % (34.0-46.0); HGB 12.2 gm/dL (11.4-16.0); Lymphocytes # (A) 1.5 k/uL (1.0-4.8); Lymphocytes % (A) 12 %; MCH 28.6 pg (25.0-35.0); MCHC 32.4 g/dL (31.0-37.0); MCV 88.3 fL (80.0-100.0); Mean Platelet Volume 8.2; Monocytes # (A) 0.5 k/uL (0-1.0); Monocytes % (A) 4 %; Neutrophils # (A) 11.1 k/uL (1.3-7.7); Neutrophils % (A) 83 %; Platelet Count 211 k/uL (150-450); RBC 4.25 m/uL (3.80-5.40); RDW 14.3 % (11.5-15.5); WBC 13.4 k/uL (3.8-10.6)
[2021-08-25 16:20] LABS: Albumin 3.3 g/dL (3.5-5.0); Calcium 8.2 mg/dL (8.4-10.2); Potassium 3.6 mmol/L (3.5-5.1); Total Bilirubin 0.6 mg/dL (0.2-1.3); Total Protein 5.7 g/dL (6.3-8.2)
[2021-08-25] MEDS: MORPHINE SULFATE IR 15 MG TABLET PO SCH ×2 (16:53→23:15)
[2021-08-25] MEDS: PANTOPRAZOLE 40 MG TABLET PO SCH (16:55)
[2021-08-25] MEDS: METOPROLOL TARTRATE 25 MG TAB PO SCH (20:38)
[2021-08-25] MEDS: DONEPEZIL 5 MG TAB PO SCH (20:39)
[2021-08-25] MEDS: QUEtiapine 25 MG TAB PO SCH (20:39)
[2021-08-25] MEDS: APIXABAN 5 MG TAB PO SCH (20:39)
[2021-08-26] MEDS: SODIUM CHLORIDE 0.9% 1,000 ML IV SCH ×2 (04:35→12:06)
[2021-08-26] MEDS: PANTOPRAZOLE 40 MG TABLET PO SCH ×2 (06:45→16:14)
[2021-08-26] MEDS: IPRATROPIUM 0.5 MG/2.5 ML NEBU INHALATION SCH ×5 (08:06→19:24)
[2021-08-26 08:14] LABS: Calcium 8.7 mg/dL (8.4-10.2); Potassium 3.7 mmol/L (3.5-5.1)
[2021-08-26] MEDS ORDERED: hydroCHLOROthiazide 25 MG TAB PO SCH (09:00)
[2021-08-26] MEDS: MORPHINE SULFATE IR 15 MG TABLET PO SCH ×2 (09:21→16:06)
[2021-08-26] MEDS: QUEtiapine 25 MG TAB PO SCH ×2 (09:21→20:20)
[2021-08-26] MEDS: DULoxetine HCL 60 MG CAPSULE.DR PO SCH (09:21)
[2021-08-26] MEDS: EZETIMIBE 10 MG TAB PO SCH (09:21)
[2021-08-26] MEDS: amLODIPine 5 MG TAB PO SCH (09:21)
[2021-08-26] MEDS: APIXABAN 5 MG TAB PO SCH ×2 (09:21→20:20)
[2021-08-26] MEDS: METOPROLOL TARTRATE 25 MG TAB PO SCH ×2 (09:23→20:20)
--- NOTE | 2021-08-26 10:04 | CONS ---
CONSULTATION HISTORY OF PRESENT ILLNESS: Jessie is a 70-year-old lady with history of paroxysmal atrial fibrillation, TIA, alcoholic liver disease, hypertension, dyslipidemia and COPD who presented to the hospital having had an episode of syncope at home. She states that she was in the bathroom, fell down and hit the commode. Does not have any external injuries. It is unclear for how long she was passed out. She thinks it was transiently. She came into hospital where an EKG showed sinus rhythm with nonspecific ST-T wave changes. Tropes were slightly elevated at 0.2, 0.5 and 0.4. There is mild renal insufficiency and the CPK was elevated at 945. Her urine drug screen was positive for opiates and tricyclics. At the time of my evaluation this morning, she appears alert and free of significant cardiac symptoms and remains in sinus rhythm. She is hemodynamically stable and afebrile. She has history of prior myocardial infarction. Apparently underwent cardiac catheterization and was found to have normal coronaries. PAST MEDICAL HISTORY: Significant for hypertension, dyslipidemia, and paroxysmal atrial fibrillation and also chronic pain. MEDICATIONS: At home included: Norvasc, hydrochlorothiazide, morphine, Seroquel, Zofran, metoprolol, Motrin, Zetia, Aricept, Cymbalta, and Eliquis. ALLERGIES: There are multiple drug allergies including LIPITOR, KEFLEX, CIPRO, IV DYE, LATEX, PENICILLIN, SULFA, TETRACYCLINE. FAMILY HISTORY: Negative for premature coronary artery disease. SOCIAL HISTORY: Negative for current smoking, EtOH abuse, or drug abuse. REVIEW OF SYSTEMS: HEENT is unremarkable. CARDIAC as described above. RESPIRATORY negative. GI negative. GENITOURINARY negative. ALLERGY/IMMUNOLOGY: Negative. SKIN negative. MUSCULOSKELETAL significant for falls. PSYCHOSOCIAL: Negative. ENDOCRINE: Negative. DERM: Negative. CONSTITUTIONAL: Negative. EXAM: Comfortable at rest. Vital signs are stable. Chest exam reveals good air entry bilaterally. Heart exam reveals first and second heart sounds. Systolic murmur at the left lower sternal border. Abdomen is soft. Exam of extremities did not reveal any edema. Peripheral pulses are felt. LAB: Showed that the tropes are slightly elevated. There was renal insufficiency on initial presentation that has since improved. ASSESSMENT: 1. Syncope probably due to the hypotension and excess sedation. 2. Troponin elevation probably is related to renal insufficiency. 3. History of paroxysmal atrial fibrillation. 4. Hypertension. PLAN: I will continue the Eliquis that the patient is on. Continue rest of her medications including beta arya. I will obtain a 2D echo to assess LV function and wall motion. She does not need further evaluation for CAD at this time, but I will consider an outpatient stress test on her. DANAY / JESSICA: [id number] /
--- NOTE | 2021-08-26 10:47 | P.NPCON ---
History of Present Illness - Reason for Consult acute renal failure - History of Present Illness Reason for consultation: Acute kidney injury and rhabdomyolysis History of present illness: Patient is a 70-year-old female seen in consultation for acute kidney injury and rhabdomyolysis. Patient presented to the hospital with generalized weakness and fall. Patient is currently not a reliable historian. She doesn't recall exactly what happened. It appears that the patient was found by her son on the floor sleeping. Patient's CK level was elevated at 1511 on admission and is down to 945 today. She is currently maintained on normal saline at 1 30 mL an hour. She does admit to taking Motrin 3 times daily. Renal function is improving. Creatinine is down to 1.14 today. She was taking hydrochlo rothiazide at home as well which is currently held. Blood pressures controlled. Denies any vomiting or diarrhea. Temperature 90.9F this morning. Patient has history of overdosing on prescribed medications. Urine drug screen was positive for opiates as well as tricyclic antidepressants. Vital signs are stable. General: The patient appeared well nourished and normally developed. HEENT: Head exam is unremarkable. LUNGS: Breath sounds decreased. HEART: Rate and Rhythm are regular. ABDOMEN: Soft, obese. EXTREMITITES: No edema. Past Medical History Past Medical History: Atrial Fibrillation, Asthma, Coronary Artery Disease (CAD), Chest Pain / Angina, COPD, CVA/TIA, Fibromyalgia, GERD/Reflux, Hyperlipidemia, Hypertension, Memory Impairment, Myocardial Infarction ([place]), Osteoarthritis (OA), Pneumonia Additional Past Medical History / Comment(s): SOME SHORT TERM MEMORY LOSS, NEUROPATHY BILATERAL UPPER AND LOWER EXTREMITIES, CHRONIC BACK PAIN, DJD, CVA 2006, TIA 2007, BRONCHITIS, SINUS PROBLEMS AT TIMES, 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, BILATERAL TINNITIS, PAST L FOOT FRACTURES THAT HEALED INCORRECTLY, UTIs Last Myocardial Infarction Date:: vanessa History of Any Multi-Drug Resistant Organisms: None Reported Past Surgical History: Bladder Surgery, Cholecystectomy, Heart Catheterization, Hysterectomy, Orthopedic Surgery, Tonsillectomy, Tubal Ligation Additional Past Surgical History / Comment(s): 2013 CARDIAC CATH TX MEDICALLY, BENIGN OVARIAN TUMOR REMOVAL, BENIGN PERINEAL TUMOR REMOVAL, BILATERAL VOCAL CORDS STRIPPED D/T TUMORS, FIRST 2 FINGER r HAND PARTIAL AMP D/T INJURY, 2 BLADDER SUSPENSIONS, COLONOSCOPY/HEMORRHOIDECTOMY. Past Anesthesia/Blood Transfusion Reactions: Previous Problems w/ Anesthesia Additional Past Anesthesia/Blood Transfusion Reaction / Comment(s): difficulty waking in past. claustrophobia Past Psychological History: Anxiety, Depression Additional Psychological History / Comment(s): Pt lives with son right now with 1 cat. Pt uses a wheeled walker or a cane. Pt no longer drives, she takes the bus. She denies any suicidal thoughts/plans. Smoking Status: Current every day smoker Past Alcohol Use History: None Reported Additional Past Alcohol Use History / Comment(s): Started smoking at age 15 or 16 up to 2-1/2 packs per day and is currently down to 1ppd. Patient does give history of heavy alcohol abuse off and on in the past but had quit alcohol completely 3 years ago. She does smoke marijuana. She uses a cane for ambulation. Past Drug Use History: Marijuana Additional Drug Use History / Comment(s): Occasional marijuana use - Past Family History Mother Family Medical History: CVA/TIA Additional Family Medical History / Comment(s): Mother at age 73 from a brain stem stroke. Brother(s) Family Medical History: Dementia Additional Family Medical History / Comment(s): Patient has 2 full brothers with no major medical problems. Patient does not have any sisters. Patient has 3 sons with no major medical problems. Son(s) Family Medical History: Cancer Additional Family Medical History / Comment(s): ONE SON IS OBESE. THE OTHER SON HAD LYMPHOMA Father Family Medical History: Congestive Heart Failure (CHF), Myocardial Infarction ([place]) Additional Family Medical History / Comment(s): Father at age 76 from a massive heart attack. Medications and Allergies Home Medications Medication Instructions Recorded Confirmed Type QUEtiapine [SEROquel] 25 mg PO BID 11/18/19 08/25/21 History Metoprolol Tartrate 25 mg PO BID 07/03/20 08/25/21 History hydroCHLOROthiazide 25 mg PO DAILY 07/03/20 08/25/21 History Apixaban [Eliquis] 5 mg PO BID #60 tab 07/07/20 08/25/21 Rx amLODIPine [Norvasc] 5 mg PO DAILY #60 tab 07/07/20 08/25/21 Rx Ezetimibe [Zetia] 10 mg PO DAILY 05/25/21 08/25/21 History Omeprazole 40 mg PO AC-BID 05/25/21 08/25/21 History Ondansetron [Zofran] 4 - 8 mg PO BID PRN 05/25/21 08/25/21 History DULoxetine HCL [Cymbalta] 60 mg PO DAILY 06/11/21 08/25/21 History Dicyclomine [Bentyl] 10 mg PO TID PRN 06/11/21 08/25/21 History Donepezil [Aricept] 5 mg PO HS 06/11/21 08/25/21 History Umeclidinium [place] [Incruse 1 puff INHALATION RT-DAILY 06/11/21 08/25/21 History Ellipta] Ibuprofen [Motrin] 600 mg PO Q8HR 08/25/21 08/25/21 History Morphine Sulfate [place] [MSIR] 15 mg PO Q8H 08/25/21 08/25/21 History Allergies Allergy/AdvReac Type Severity Reaction Status Date / Time atorvastatin [From Lipitor] Allergy Unknown Verified 08/25/21 11:23 cephalexin monohydrate Allergy Rash/Hives Verified 08/25/21 11:23 [From Keflex] ciprofloxacin [From Cipro] Allergy Swelling Verified 08/25/21 11:23 Iodinated Contrast Media Allergy Dyspnea Verified 08/25/21 11:23 latex Allergy Rash/Hives Verified 08/25/21 11:23 oxytetracycline Allergy Rash/Hives Verified 08/25/21 11:23 [From Terramycin] Penicillins Allergy Rash/Hives Verified 08/25/21 11:23 Sulfa (Sulfonamide Allergy Rash/Hives Verified 08/25/21 11:23 Antibiotics) Physical Exam Vitals: Vital Signs Temp Pulse Pulse Resp BP BP Pulse Ox 08/26/21 08:05 91 L 08/26/21 08:00 98.5 F 79 16 117/70 92 L 08/26/21 04:00 98.0 F 77 22 101/69 91 L 08/26/21 02:00 20 08/25/21 23:18 99.0 F 66 18 113/58 96 08/25/21 20:00 20 08/25/21 16:00 96.2 F L 72 16 142/68 96 08/25/21 12:07 67 18 144/81 96 Intake and Output 10/14/21 10/15/21 10/15/21 22:59 06:59 14:59 Intake Total 1240 Output Total 1300 475 Balance -60 -475 Intake: Intake, IV Titration 1000 Amount Sodium Chloride 0.9% 1, 1000 000 ml @ 130 mls/hr IV . Q7H42M [facility] Rx#:[id number] Oral 240 Output: Urine 1300 475 Uretheral ([place]) 650 125 Other: Weight 87.5 kg Results - Lab Results Most recent lab results Calcium 8.7 mg/dL (8.4-10.2) 08/26/21 07:01 Magnesium 2.0 mg/dL (1.6-2.3) 08/26/21 07:01 08/25/21 15:49 08/26/21 07:01 Assessment and Plan Plan: Assessment: 1. Acute kidney injury mostly prerenal secondary to hypovolemia improving with IV hydration. Creatinine was 1.84 on admission and is 1.14 today. UA fairly benign. 2. Mild rhabdomyolysis secondary to fall and immobility. CK levels trending down. 3. Benign hypertension. Controlled. Plan: Decrease rate of normal saline to 75 mL an hour. Hold diuretics. Hold amlodipine for systolic blood pressure less than 120. Avoid nephrotoxins. Thank you for the consultation. I will continue to follow the patient with you during her hospital stay.
--- NOTE | 2021-08-26 12:00 | ECHOF ---
Referral Reason:abnormal troponins MEASUREMENTS -------- HEIGHT: 165.1 cm WEIGHT: 87.1 kg BP: 101/69 RVIDd: 2.6 cm (< 3.3) IVSd: 1.3 cm (0.6 - 1.1) LVIDd: 4.1 cm (3.9 - 5.3) LVPWd: 1.3 cm (0.6 - 1.1) IVSs: 1.9 cm LVIDs: 2.6 cm LVPWs: 1.7 cm LA Diam: 3.8 cm (2.7 - 3.8) LAESV Index (A-L): 28.01 ml/m Ao Diam: 3.0 cm (2.0 - 3.7) AV Cusp: 2.1 cm (1.5 - 2.6) MV EXCURSION: 14.577 mm (> 18.000) MV EF SLOPE: 71 mm/s (70 - 150) EPSS: 0.6 cm MV E Kaleb: 1.56 m/s MV DecT: 245 ms MV A Kaleb: 1.11 m/s MV E/A Ratio: 1.40 AV maxP.91 mmHg AV meanP.19 mmHg RAP: 5.00 mmHg RVSP: 37.19 mmHg FINDINGS -------- Sinus rhythm. This was a technically difficult study with suboptimal views. The left ventricular size is normal. There is mild concentric left ventricular hypertrophy. Overa ll left ventricular systolic function is normal with, an EF between 55 - 60 %. The right ventricle is normal in size. Normal LA size by volume 22+/-6 ml/m2. The right atrium is normal in size. 5 ml of Lumason was utilized for enhancement of images. Interatrial and interventricular septum intact. There is mild aortic valve sclerosis. Mild mitral annular calcification present. Mild tricuspid regurgitation present. There is mild pulmonary hypertension. The right ventricular systolic pressure, as measured by Doppler, is 37.19mmHg. Trace/mild (physiologic) pulmonic regurgitation. The aortic root size is normal. Normal inferior vena cava with normal inspiratory collapse consistent with estimated right atrial pre ssure of 5 mmHg. There is no pericardial effusion. CONCLUSIONS -------- 1. The left ventricular size is normal. 2. There is mild concentric left ventricular hypertrophy. 3. Overall left ventricular systolic function is normal with, an EF between 55 - 60 %. 4. 5 ml of Lumason was utilized for enhancement of images. 5. There is mild aortic valve sclerosis. 6. Mild mitral annular calcification present. 7. Mild tricuspid regurgitation present. 8. There is mild pulmonary hypertension. 9. The right ventricular systolic pressure, as measured by Doppler, is 37.19mmHg. 10. Trace/mild (physiologic) pulmonic regurgitation. 11. There is no pericardial effusion. AUTOMOTIVE SERVICE ASSISTANT: Raegan Torres RDCS
[2021-08-26 13:16] VITALS: BMI 32.1
--- NOTE | 2021-08-26 13:22 | P.PN ---
Subjective Progress Note Date: 08/26/21 HISTORY OF PRESENT ILLNESS 70-year-old female one of Dr. Vo's patient with multiple medical problem was known to have history of COPD, CAD, multiple TIA and CVA, history of dementia, fibromyalgia, previous history of [place] with significant short-term memory loss who apparently live home by herself. She woke up this morning try to get out of bed had extreme pain and discomfort in all extremity and had very difficult time ambulating, This Finally Made It to See His Mom and with His Help She Get Out Of Bed Try to Walk to the Bathroom She Tipped Backwards and Fell off Also Try to Walk Again Fell One More Time Patient Had Generalized Muscle Pain All over She Was Not Acting Herself She Was More Confused the Son Major Concern at the Time Specially with His Mom Been on Some Any Prescribed Medication That She Might Be Overdosing and Medication or Overmedicated. He Ended up Calling 911 and Brought Her to the Emergency Department by EMS, Still Having Slight Bit of Problem with Her Memory at the Time but More Problem with Ambulating and Walking, surprisingly CK was 1511 with troponin was 0.173 lactic acid 2.1 significant declining kidney function compared to before, no infection was found at the time drug screen was positive for opiates and twice IV anti-depression which patient is taking all in prescription medication. With the severity of her symptoms including rhabdomyolysis, acute kidney failure, non-ST [place] patient be admitted to the hospital, CK with troponin 3 to be done, consult cardiology watch patient on surveillance system monitor continue to watch her CK continue IV hydration to improve the kidney function especially with the severity of the rhabdomyolysis at this point. 08/26: Patient denies having any chest pain or shortness of breath. Repeat blood work today is significantly improved with BUN 35, creatinine 1.14, CK 945. Troponins been 0.259, 7.509 and 0.458. Patient has been seen by cardiology and plan will be to continue eliquis and other cardiac medications. Plan will be for outpatient stress test. Echocardiogram reveals EF of 55-60% with mild concentric left ventricular hypertrophy, mild mitral annular calcification, mild tricuspid regurgitation, mild pulmonary hypertension. Patient has also been seen and followed by nephrology with recommendations to decrease IV fluids to 75 an hour, hold diuretics and hold amlodipine until systolic blood pressure greater than 120. REVIEW OF SYSTEMS Constitutional: No fever, no chills, no night sweats. No weight change. No weakness, fatigue or lethargy. No daytime sleepiness. EENT: No headache. No blurred vision or double vision, no loss of vision. No loss of Hearing, no ringing in the ears, no dizziness. No nasal drainage or congestion. No epistaxis. No sore throat. Lungs: Denies shortness of breath with mild cough no wheezes. Cardiovascular: Positive chest discomfort with slight shortness of breath positive PND orthopnea palpitation, positive lightheadedness and slight dizziness no episode of syncope. Not clear whether patient is having any arrhyt hmia or not this. Abdominal: No abdominal pain. No nausea, vomiting. No diarrhea. No constipation. No bloody or tarry stools.. No loss of appetite. Genitourinary: No dysuria, increased frequency, urgency. And mild incontinence. Musculoskeletal: Significant pain and discomfort in the back and tired muscular system including the back the shoulder the thigh the neck and so on. Integumentary: No wounds, no lesions. No rash or pruritus. No unusual bruising. No change in hair or nails. Neurologic: No aphasia. No facial droop. Slight confusion and mild altered mental status. No head injury. No headache. No paralysis. No paresthesia. Psychiatric: Positive depression with mild anxiety. Endocrine: No abnormal blood sugars. No weight change. No excessive sweating or thirst. No cold intolerance. PHYSICAL EXAMINATION Gen: This is 70-year-old laying in bed looks older than her age still in mild wheezes at the time of examination mildly confused and had problem been oriented to time and person. HEENT: Head is atraumatic, normocephalic. Pupils equal, round. Sclerae is anicteric. NECK: Supple. No JVD. No lymphadenopathy. No thyromegaly. LUNGS: Decreased breath some Rhonchi Plasma Mild Expiratory Wheezes. HEART: Regular rhythm and rate soreness to positive S3 positive PVCs with mild arrhythmia and irregularity. ABDOMEN: Soft. Bowel sounds are present. No masses. No tenderness. EXTREMITIES: Trace edema of the lower extremity generalized arthralgia and myalgia significant pain and discomfort in all 4 extremities. NEUROLOGICAL: Patient is awake, alert significant confusion. Cranial nerves 2 through 12 are grossly intact. ASSESSMENT AND PLAN 1. Non-ST HI: Patient troponin was elevated no change in EKG this point, pat ient is known to have history of cardiac disease will be admitted to the hospital seeing cardiology CK with troponin 3 be done we'll keep patient on surveillance system monitor. Other possibility the patient might have slight [place] or arrhythmia had caused her to have worsening symptoms with infusion and probably pass out related to it with made patient had mild rhabdomyolysis the time. 2. Rhabdomyolysis, improved. Recheck CK in the morning. IV fluids decreased to 75 mL per hour. 3. Acute kidney injury: Most likely ATN from rhabdomyolysis, continue hydration repeat CMP tomorrow. 4. Atherosclerotic heart disease: Patient remain on metoprolol titrate 25 g twice a day, Zetia 10 mg daily, Eliquis 5 mg twice a day. 5. COPD: Was slightly bit worsening symptoms at this point, continue using DuoNeb as needed. 6. Chronic pain syndrome: Patient apparently hasn't MS Contin 15 mg 3 times a day along with ibuprofen 6 mg 3 times a day still on duloxetine 60 mg daily as well. 7. Hypertension. Amlodipine on hold. Continue metoprolol 25 mg twice a day and hold hydrochlorothiazide. 8. Hyperlipidemia: Apparently patient is not able to tolerate any statin she is on Zetia 10 mg a day only. 9. ? Of A. fib with RVR: Patient remain on Eliquis 5 mg twice a day and metoprolol titrate 25 mg twice a day. 10. Worsening dementia: Patient remain on Aricept 5 mg daily, Seroquel 25 g twice a day as well. 11 GI prophylaxis: Patient will be on omeprazole 40 mg twice a day. 12 DVT prophylaxis: Patient remain on Eliquis at this point. 13. COVID-19 testing, was negative. DISCHARGE PLAN Home Impression and plan of care have been directed as dictated by the signing physic ian. Keyla Holloway nurse practitioner acting as scribe for signing physician. Objective - Vital Signs Vital signs: Vital Signs Temp 98.5 F 08/26/21 08:00 Pulse 79 08/26/21 08:00 Resp 16 08/26/21 08:00 BP 117/70 08/26/21 08:00 Pulse Ox 91 L 08/26/21 08:05 Intake & Output 08/25/21 08/26/21 08/26/21 18:59 06:59 18:59 Intake Total 240 1000 Output Total 1775 Balance 240 -775 Weight 86.183 kg 87.5 kg Intake: Intake, IV Titration 1000 Amount Sodium Chloride 0.9% 1, 1000 000 ml @ 130 mls/hr IV . [id number] [facility] Rx#:[id number] Oral 240 Output: Urine 1775 Uretheral ([place]) 775 - Labs CBC & Chem 7: 08/25/21 15:49 08/26/21 07:01 Labs: Abnormal Lab Results - Last 24 Hours (Table) 08/25/21 08/25/21 08/25/21 Range/Units 08:57 08:57 11:59 WBC (3.8-10.6) k/uL Neutrophils # (1.3-7.7) k/uL BUN (7-17) mg/dL Creatinine (0.52-1.04) mg/dL Glucose (74-99) mg/dL Osmolality 302 H (280-301) mosm/kg Plasma Lactic Acid Vinny 2.1 H* (0.7-2.0) mmol/L Calcium (8.4-10.2) mg/dL AST (14-36) U/L ALT (4-34) U/L Creatine Kinase (30-135) U/L CK-MB (CK-2) (0.0-2.4) ng/mL Troponin I (0.000-0.034) ng/mL Total Protein (6.3-8.2) g/dL Albumin (3.5-5.0) g/dL Urine Opiates Screen Detected H (NotDetected) U Tricyclic Antidepress Detected H (NotDetected) 08/25/21 08/25/21 08/25/21 Range/Units 15:49 15:49 15:49 WBC 13.4 H (3.8-10.6) k/uL Neutrophils # 11.1 H (1.3-7.7) k/uL BUN 37 H (7-17) mg/dL Creatinine 1.52 H (0.52-1.04) mg/dL Glucose 121 H (74-99) mg/dL Osmolality (280-301) mosm/kg Plasma Lactic Acid Vinny (0.7-2.0) mmol/L Calcium 8.2 L (8.4-10.2) mg/dL AST 95 H (14-36) U/L ALT 66 H (4-34) U/L Creatine Kinase (30-135) U/L CK-MB (CK-2) (0.0-2.4) ng/mL Troponin I 0.259 H* (0.000-0.034) ng/mL Total Protein 5.7 L (6.3-8.2) g/dL Albumin 3.3 L (3.5-5.0) g/dL Urine Opiates Screen (NotDetected) U Tricyclic Antidepress (NotDetected) 08/25/21 08/25/21 08/25/21 Range/Units 15:49 20:57 22:49 WBC (3.8-10.6) k/uL Neutrophils # (1.3-7.7) k/uL BUN (7-17) mg/dL Creatinine (0.52-1.04) mg/dL Glucose (74-99) mg/dL Osmolality (280-301) mosm/kg Plasma Lactic Acid Vinny (0.7-2.0) mmol/L Calcium (8.4-10.2) mg/dL AST (14-36) U/L ALT (4-34) U/L Creatine Kinase (30-135) U/L CK-MB (CK-2) 15.4 H (0.0-2.4) ng/mL Troponin I 0.509 H* 0.458 H* (0.000-0.034) ng/mL Total Protein (6.3-8.2) g/dL Albumin (3.5-5.0) g/dL Urine Opiates Screen (NotDetected) U Tricyclic Antidepress (NotDetected) 08/26/21 Range/Units 07:01 WBC (3.8-10.6) k/uL Neutrophils # (1.3-7.7) k/uL BUN 35 H (7-17) mg/dL Creatinine 1.14 H (0.52-1.04) mg/dL Glucose 107 H (74-99) mg/dL Osmolality (280-301) mosm/kg Plasma Lactic Acid Vinny (0.7-2.0) mmol/L Calcium (8.4-10.2) mg/dL AST (14-36) U/L ALT (4-34) U/L Creatine Kinase 945 H (30-135) U/L CK-MB (CK-2) (0.0-2.4) ng/mL Troponin I (0.000-0.034) ng/mL Total Protein (6.3-8.2) g/dL Albumin (3.5-5.0) g/dL Urine Opiates Screen (NotDetected) U Tricyclic Antidepress (NotDetected)
[2021-08-26] MEDS: DONEPEZIL 5 MG TAB PO SCH (20:21)
[2021-08-27] MEDS: SODIUM CHLORIDE 0.9% 1,000 ML IV SCH ×2 (00:26→12:55)
[2021-08-27] MEDS: MORPHINE SULFATE IR 15 MG TABLET PO SCH ×3 (01:15→17:32)
[2021-08-27] MEDS: PANTOPRAZOLE 40 MG TABLET PO SCH ×2 (06:24→17:27)
[2021-08-27] MEDS: IPRATROPIUM 0.5 MG/2.5 ML NEBU INHALATION SCH ×4 (07:16→20:47)
[2021-08-27] MEDS: EZETIMIBE 10 MG TAB PO SCH (08:16)
[2021-08-27] MEDS: METOPROLOL TARTRATE 25 MG TAB PO SCH ×2 (08:16→21:37)
[2021-08-27] MEDS: DULoxetine HCL 60 MG CAPSULE.DR PO SCH (08:16)
[2021-08-27] MEDS: APIXABAN 5 MG TAB PO SCH ×2 (08:16→21:36)
[2021-08-27] MEDS: QUEtiapine 25 MG TAB PO SCH (08:16)
[2021-08-27] MEDS: amLODIPine 5 MG TAB PO SCH (08:16)
[2021-08-27 09:25] LABS: Calcium 8.7 mg/dL (8.4-10.2); Magnesium 1.8 mg/dL (1.6-2.3); Potassium 3.3 mmol/L (3.5-5.1)
--- NOTE | 2021-08-27 10:06 | P.PN ---
Subjective Progress Note Date: 08/27/21 HISTORY OF PRESENT ILLNESS: Patient examined this morning at the bedside. Patient is somewhat lethargic. She denies chest pain or pressure. She denies shortness of breath. Echocar diogram reveals ejection fraction 55-60%. Telemetry reveals sinus mechanism with PACs. Blood pressure 146/58. PHYSICAL EXAM: VITAL SIGNS: Reviewed. GENERAL: Well-developed in no acute distress. NECK: Supple. No JVD or thyromegaly LUNGS: Respirations even and unlabored. Lungs diminished bilaterally. HEART: Regular rate and rhythm. S1 and S2 heard. Systolic murmur noted. EXTREMITIES: Normal range of motion. No clubbing or cyanosis. Peripheral pulses intact. No lower extremity edema ASSESSMENT: Syncope Abnormal troponin, no evidence of acute coronary syndrome Paroxysmal atrial fibrillation Hypertension PLAN: Continue current cardiac medications Patient is stable from a cardiac perspective No further inpatient recommendations Patient may be discharged home from a cardiac standpoint. We will sign off. Please reconsult if needed. Nurse practitioner note has been reviewed by physician. Signing provider agrees with the documented findings, assessment, and plan of care. Objective - Vital Signs Vital signs: Vital Signs Temp 98.6 F 08/27/21 08:00 Pulse 97 08/27/21 08:00 Resp 16 08/27/21 08:00 BP 146/58 08/27/21 08:00 Pulse Ox 100 08/27/21 08:00 Intake & Output 08/26/21 08/27/21 08/27/21 18:59 06:59 18:59 Intake Total 820 375 180 Output Total 575 875 0 Balance 245 -500 180 Weight 87.5 kg 90.5 kg Intake: Intake, IV Titration 820 375 Amount Sodium Chloride 0.9% 1, 820 375 000 ml @ 75 mls/hr IV . [id number] [facility] Rx#:[id number] Oral 180 Output: Urine 575 700 0 Uretheral ([place]) 700 Stool 0 Urine/Stool Mix 0 Other 175 Other: # Voids 0 # Bowel Movements 0 - Labs CBC & Chem 7: 08/25/21 15:49 08/27/21 08:46 Labs: Abnormal Lab Results - Last 24 Hours (Table) 08/27/21 Range/Units 08:46 Potassium 3.3 L (3.5-5.1) mmol/L BUN 23 H (7-17) mg/dL Glucose 165 H (74-99) mg/dL
[2021-08-27] MEDS ORDERED: Potassium Replacement Protocol 1 EACH MISC MISCELLANE PRN (10:54)
--- NOTE | 2021-08-27 12:21 | PN ---
PROGRESS NOTE Patient is seen for followup for acute kidney injury and rhabdomyolysis. Serum creatinine has improved to 0.8 from 1.8 on initial admission. CK level is down to 945 from 1511 on initial admission. Patient is currently maintained on saline at 75 mL/hour. On examination, patient is comfortable. Blood pressure 146/58, heart rate 97 per minute. She is afebrile. Examination reveals she is euvolemic. No evidence of edema, bilateral lower extremities. Abdomen is soft, nontender. Lungs are clear. Heart sounds are heard. Patient is sleeping but arousable. Labs show sodium 139, potassium 3.3, chloride 103, BUN 23, creatinine of 0.8 mg/dL. ASSESSMENT: 1. Acute kidney injury, prerenal and secondary to rhabdomyolysis, currently improved. 2. Mild rhabdomyolysis, improving, maintained on IV fluids. Patient was not on statins prior to admission. 3. Benign hypertension, currently controlled. 4. Hypokalemia, currently being replaced. PLAN: Replace potassium. Continue with the gentle IV hydration. Increase oral intake as tolerated. MMODL / IJN: [id number] /
[2021-08-27] MEDS: POTASSIUM CHLORIDE ER 20 MEQ TAB.ER PO SCH ×3 (12:54→23:22)
[2021-08-27] MEDS ORDERED: IPRATROPIUM-ALBUTEROL 3 ML NEB INHALATION PRN (15:00)
--- NOTE | 2021-08-27 16:36 | P.PN ---
Subjective Progress Note Date: 08/27/21 HISTORY OF PRESENT ILLNESS 70-year-old female one of Dr. Vo's patient with multiple medical problem was known to have history of COPD, CAD, multiple TIA and CVA, history of dementia, fibromyalgia, previous history of [place] with significant short-term memory loss who apparently live home by herself. She woke up this morning try to get out of bed had extreme pain and discomfort in all extremity and had very difficult time ambulating, This Finally Made It to See His Mom and with His Help She Get Out Of Bed Try to Walk to the Bathroom She Tipped Backwards and Fell off Also Try to Walk Again Fell One More Time Patient Had Generalized Muscle Pain All over She Was Not Acting Herself She Was More Confused the Son Major Concern at the Time Specially with His Mom Been on Some Any Prescribed Medication That She Might Be Overdosing and Medication or Overmedicated. He Ended up Calling 911 and Brought Her to the Emergency Department by EMS, Still Having Slight Bit of Problem with Her Memory at the Time but More Problem with Ambulating and Walking, surprisingly CK was 1511 with troponin was 0.173 lactic acid 2.1 significant declining kidney function compared to before, no infection was found at the time drug screen was positive for opiates and twice IV anti-depression which patient is taking all in prescription medication. With the severity of her symptoms including rhabdomyolysis, acute kidney failure, non-ST [place] patient be admitted to the hospital, CK with troponin 3 to be done, consult cardiology watch patient on grid operator continue to watch her CK continue IV hydration to improve the kidney function especially with the severity of the rhabdomyolysis at this point. 08/26: Patient denies having any chest pain or shortness of breath. Repeat blood work today is significantly improved with BUN 35, creatinine 1.14, CK 945. Troponins been 0.259, 7.509 and 0.458. Patient has been seen by cardiology and plan will be to continue eliquis and other cardiac medications. Plan will be for outpatient stress test. Echocardiogram reveals EF of 55-60% with mild concentric left ventricular hypertrophy, mild mitral annular calcification, mild tricuspid regurgitation, mild pulmonary hypertension. Patient has also been seen and followed by nephrology with recommendations to decrease IV fluids to 75 an hour, hold diuretics and hold amlodipine until systolic blood pressure greater than 120. 08/27: Patient is not doing well today, she is a little bit more confusion she says, has audible wheezing, not sleeping supposed to be on 2 Seroquel at night, patient cannot remember the dose. However chart says 25 mg twice a day. Patient has been smoking, no previous diagnosis of COPD yet, however she is a heavy smoker, with current wheezing noted on exam, his conversational dyspnea. Patient will be started on Solu-Medrol, Pulmicort nebulized solution, DuoNeb, check for [facility] proBNP, and consult with Dr. Russo pulmonary medicine. Patient is on [place], REVIEW OF SYSTEMS Constitutional: No fever, no chills, no night sweats. No weight change. No weakness, fatigue or lethargy. No daytime sleepiness. EENT: No headache. No blurred vision or double vision, no loss of vision. No loss of Hearing, no ringing in the ears, no dizziness. No nasal drainage or congestion. No epistaxis. No sore throat. Lungs: Denies shortness of breath with mild cough no wheezes. Cardiovascular: Positive chest discomfort with slight shortness of breath positive PND orthopnea palpitation, positive lightheadedness and slight dizziness no episode of syncope. Not clear whether patient is having any arrhythmia or not this. Abdominal: No abdominal pain. No nausea, vomiting. No diarrhea. No constipation. No bloody or tarry stools.. No loss of appetite. Genitourinary: No dysuria, increased frequency, urgency. And mild incontinence. Musculoskeletal: Significant pain and discomfort in the back and tired muscular system including the back the shoulder the thigh the neck and so on. Integumentary: No wounds, no lesions. No rash or pruritus. No unusual bruising. No change in hair or nails. Neurologic: No aphasia. No facial droop. Slight confusion and mild altered mental status. No head injury. No headache. No paralysis. No paresthesia. Psychiatric: Positive depression with mild anxiety. Endocrine: No abnormal blood sugars. No weight change. No excessive sweating or thirst. No cold intolerance. Objective - Vital Signs Vital signs: Vital Signs Temp 98.6 F 08/27/21 08:00 Pulse 58 L 08/27/21 12:00 Resp 16 08/27/21 12:00 BP 108/76 08/27/21 12:00 Pulse Ox 99 08/27/21 12:00 Intake & Output 08/26/21 08/27/21 08/27/21 18:59 06:59 18:59 Intake Total 820 375 420 Output Total 575 875 325 Balance 245 -500 95 Weight 87.5 kg 90.5 kg Intake: Intake, IV Titration 820 375 Amount Sodium Chloride 0.9% 1, 820 375 000 ml @ 75 mls/hr IV . [id number] [facility] Rx#:[id number] Oral 420 Output: Urine 575 700 325 Uretheral ([place]) 700 Stool 0 Urine/Stool Mix 0 Other 175 Other: # Voids 0 # Bowel Movements 0 - Constitutional General appearance: Present: cooperative, no acute distress - EENT Eyes: Present: EOMI, PERRLA, dentition normal, normal appearance ENT: Present: NA/AT, normal oropharynx - Neck Neck: Present: normal ROM - Respiratory Respiratory: bilateral: diminished, wheezing, negative: CTA - Cardiovascular Rhythm: regular Heart sounds: normal: S1, S2 - Gastrointestinal General gastrointestinal: Present: normal bowel sounds, soft - Integumentary Integumentary: Present: decreased turgor, normal - Neurologic Neurologic: Present: CNII-XII intact - Musculoskeletal Musculoskeletal: Present: strength equal bilaterally - Psychiatric Psychiatric: Present: A&O x's 3, appropriate affect - Labs CBC & Chem 7: 08/25/21 15:49 08/27/21 08:46 Labs: Abnormal Lab Results - Last 24 Hours (Table) 08/27/21 Range/Units 08:46 Potassium 3.3 L (3.5-5.1) mmol/L BUN 23 H (7-17) mg/dL Glucose 165 H (74-99) mg/dL Assessment and Plan Plan: ASSESSMENT AND PLAN 1. Type II myocardial injury, cannot be ruled out, however he was cleared by cardiology, without any evidence of acute coronary syndrome, Patient troponin was elevated no change in EKG this point, patient is known to have history of cardiac disease will be admitted to the hospital seeing cardiology CK with troponin 3 be done we'll keep patient on grid operator. Other possibility the patient might have slight [place] or arrhythmia had caused her to have worsening symptoms with infusion and probably pass out related to it with made patient had mild rhabdomyolysis the time. 2. Rhabdomyolysis: Continue hydration CK will be done by tomorrow morning continue to watch for any worsening symptom. 3. Acute kidney injury: Most likely ATN from rhabdomyolysis, continue hydration repeat CMP tomorrow. 4. Atherosclerotic heart disease: Patient remain on metoprolol titrate 25 g twice a day, Zetia 10 mg daily, Eliquis 5 mg twice a day, amlodipine 5 mg a day. 5. COPD exacerbation: Was slightly bit worsening symptoms at this point, continue using DuoNeb as needed. Start on Solu-Medrol, IV every 6, on 1016, along with Pulmicort 0.5 mg twice a day, tobacco cessation program, consult with Dr. Russo, for outpatient and inpatient follow-up. 6. Chronic pain syndrome: Patient apparently hasn't MS Contin 15 mg 3 times a day along with ibuprofen 6 mg 3 times a day still on duloxetine 60 mg daily as well. 7. Hypertension: Remain on amlodipine 5 mg a day, along with metoprolol 25 mg twice a day and hydrochlorothiazide. 8. Hyperlipidemia: Apparently patient is not able to tolerate any statin she is on Zetia 10 mg a day only. 9. Paroxysmal Of A. fib with RVR: Patient remain on Eliquis 5 mg twice a day and metoprolol titrate 25 mg twice a day. 10. Worsening dementia: Patient remain on Aricept 5 mg daily continue medication still on circumflex well 25 g twice a day as well. 11 GI prophylaxis: Patient will be on omeprazole 40 mg twice a day. 12 DVT prophylaxis: Patient remain on Eliquis at this point. 13. COVID-19 testing, was negative. 14. Insomnia with confusion, patient will be back on her home dose of Seroquel 2 tablets of 25 mg at bedtime, Patient will be admitted to the hospital for a minimum of 2 night stay.
[2021-08-27] MEDS: methylPREDNISolone SOD SUCCI 125 MG/2 ML VIAL IV SCH ×2 (17:27→21:36)
[2021-08-27] MEDS: BUDESONIDE 0.5 MG/2 ML NEBU INHALATION SCH (20:47)
[2021-08-27 21:03] LABS: Glucose,Whole Blood 133 mg/dL (75-99)
[2021-08-27] MEDS: DONEPEZIL 5 MG TAB PO SCH (21:36)
[2021-08-27] MEDS: QUEtiapine 50 MG TAB PO SCH (21:36)
[2021-08-28] MEDS: MORPHINE SULFATE IR 15 MG TABLET PO SCH ×3 (00:50→17:15)
[2021-08-28] MEDS: methylPREDNISolone SOD SUCCI 125 MG/2 ML VIAL IV SCH ×4 (06:02→21:42)
[2021-08-28] MEDS: SODIUM CHLORIDE 0.9% 1,000 ML IV SCH ×2 (06:02→17:03)
[2021-08-28] MEDS: PANTOPRAZOLE 40 MG TABLET PO SCH ×2 (06:02→17:15)
[2021-08-28 06:15] LABS: Glucose,Whole Blood 136 mg/dL (75-99)
[2021-08-28] MEDS: IPRATROPIUM 0.5 MG/2.5 ML NEBU INHALATION SCH ×2 (07:21→11:00)
[2021-08-28 10:15] LABS: ALT 47 U/L (4-34); AST 36 U/L (14-36); African American GFR (CKD) >90 (>60 ml/min/1.73 sqM); Albumin 3.2 g/dL (3.5-5.0); Alkaline Phosphatase 97 U/L (38-126); Anion Gap 5 mmol/L; Blood Urea Nitrogen 21 mg/dL (7-17); Calcium 9.2 mg/dL (8.4-10.2); Carbon Dioxide 27 mmol/L (22-30); Chloride 106 mmol/L (98-107); Creatine Kinase 192 U/L (30-135); Glucose 142 mg/dL (74-99); Magnesium 1.7 mg/dL (1.6-2.3); Non-African American GFR(CKD) 89 (>60 ml/min/1.73 sqM); Potassium 4.5 mmol/L (3.5-5.1); Sodium 138 mmol/L (137-145); Total Bilirubin 0.7 mg/dL (0.2-1.3); Total Protein 5.7 g/dL (6.3-8.2)
[2021-08-28] MEDS: EZETIMIBE 10 MG TAB PO SCH (10:32)
[2021-08-28] MEDS: APIXABAN 5 MG TAB PO SCH ×2 (10:32→21:42)
[2021-08-28] MEDS: DULoxetine HCL 60 MG CAPSULE.DR PO SCH (10:32)
[2021-08-28] MEDS: amLODIPine 5 MG TAB PO SCH (10:33)
[2021-08-28] MEDS: METOPROLOL TARTRATE 25 MG TAB PO SCH ×2 (10:33→21:42)
[2021-08-28] MEDS: BUDESONIDE 0.5 MG/2 ML NEBU INHALATION SCH ×2 (11:00→20:05)
[2021-08-28 11:44] LABS: Glucose,Whole Blood 153 mg/dL (75-99)
--- NOTE | 2021-08-28 14:01 | P.PN ---
Subjective Progress Note Date: 08/28/21 HISTORY OF PRESENT ILLNESS 70-year-old female one of Dr. Vo's patient with multiple medical problem was known to have history of COPD, CAD, multiple TIA and CVA, history of dementia, fibromyalgia, previous history of MS with significant short-term memory loss who apparently live home by herself. She woke up this morning try to get out of bed had extreme pain and discomfort in all extremity and had very difficult time ambulating, This Finally Made It to See His Mom and with His Help She Get Out Of Bed Try to Walk to the Bathroom She Tipped Backwards and Fell off Also Try to Walk Again Fell One More Time Patient Had Generalized Muscle Pain All over She Was Not Acting Herself She Was More Confused the Son Major Concern at the Time Specially with His Mom Been on Some Any Prescribed Medication That She Might Be Overdosing and Medication or Overmedicated. He Ended up Calling 911 and Brought Her to the Emergency Department by EMS, Still Having Slight Bit of Problem with Her Memory at the Time but More Problem with Ambulating and Walking, surprisingly CK was 1511 with troponin was 0.173 lactic acid 2.1 significant declining kidney function compared to before, no infection was found at the time drug screen was positive for opiates and twice IV anti-depression which patient is taking all in prescription medication. With the severity of her symptoms including rhabdomyolysis, acute kidney failure, non-ST MS patient be admitted to the hospital, CK with troponin 3 to be done, consult cardiology watch patient on nuclear monitoring technician continue to watch her CK continue IV hydration to improve the kidney function especially with the severity of the rhabdomyolysis at this point. 08/26: Patient denies having any chest pain or shortness of breath. Repeat blood work today is significantly improved with BUN 35, creatinine 1.14, CK 945. Troponins been 0.259, 7.509 and 0.458. Patient has been seen by cardiology and plan will be to continue eliquis and other cardiac medications. Plan will be for outpatient stress test. Echocardiogram reveals EF of 55-60% with mild concentric left ventricular hypertrophy, mild mitral annular calcification, mild tricuspid regurgitation, mild pulmonary hypertension. Patient has also been seen and followed by nephrology with recommendations to decrease IV fluids to 75 an hour, hold diuretics and hold amlodipine until systolic blood pressure greater than 120. 08/27: Patient is not doing well today, she is a little bit more confusion she says, has audible wheezing, not sleeping supposed to be on 2 Seroquel at night, patient cannot remember the dose. However chart says 25 mg twice a day. Patient has been smoking, no previous diagnosis of COPD yet, however she is a heavy smoker, with current wheezing noted on exam, his conversational dyspnea. Patient will be started on Solu-Medrol, Pulmicort nebulized solution, DuoNeb, check for MAIN LINE ASSEMBLER proBNP, and consult with Dr. Russo pulmonary medicine. Patient is on Ahlquist, 08/28: Patient still wheezing, shortness of breath, better with this., However the when necessary albuterol was not given consistently, we will schedule it at 4 times a day, continue budesonide, still on Solu Medrol 60 every 6 hours, patient is to start nicotine patches, per request. REVIEW OF SYSTEMS Constitutional: No fever, no chills, no night sweats. No weight change. No weakness, fatigue or lethargy. No daytime sleepiness. EENT: No headache. No blurred vision or double vision, no loss of vision. No loss of Hearing, no ringing in the ears, no dizziness. No nasal drainage or congestion. No epistaxis. No sore throat. Lungs: Denies shortness of breath with mild cough no wheezes. Cardiovascular: Positive chest discomfort with slight shortness of breath pos itive PND orthopnea palpitation, positive lightheadedness and slight dizziness no episode of syncope. Not clear whether patient is having any arrhythmia or not this. Abdominal: No abdominal pain. No nausea, vomiting. No diarrhea. No constipation. No bloody or tarry stools.. No loss of appetite. Genitourinary: No dysuria, increased frequency, urgency. And mild incontinence. Musculoskeletal: Significant pain and discomfort in the back and tired muscular system including the back the shoulder the thigh the neck and so on. Integumentary: No wounds, no lesions. No rash or pruritus. No unusual bruising. No change in hair or nails. Neurologic: No aphasia. No facial droop. Slight confusion and mild altered mental status. No head injury. No headache. No paralysis. No paresthesia. Psychiatric: Positive depression with mild anxiety. Endocrine: No abnormal blood sugars. No weight change. No excessive sweating or thirst. No cold intolerance. Objective - Vital Signs Vital signs: Vital Signs Temp 98.0 F 08/28/21 12:00 Pulse 73 08/28/21 12:00 Resp 18 08/28/21 12:00 BP 165/66 08/28/21 12:00 Pulse Ox 95 08/28/21 12:00 Intake & Output 08/27/21 08/28/21 08/28/21 18:59 06:59 18:59 Intake Total 660 900 120 Output Total 325 500 475 Balance 335 400 -355 Weight 90 kg Intake: Intake, IV Titration 900 Amount Sodium Chloride 0.9% 1, 900 000 ml @ 75 mls/hr IV . [id number] [facility] Rx#:[id number] Oral 660 120 Output: Urine 325 500 475 Uretheral ([place]) 475 Stool 0 0 Urine/Stool Mix 0 Other: Voiding Method Indwelling Catheter # Voids 0 0 # Bowel Movements 0 1 - Constitutional General appearance: Present: cooperative, obese - EENT Eyes: Present: anicteric sclerae ENT: Present: hearing grossly normal - Neck Neck: Present: normal ROM - Respiratory Respiratory: bilateral: diminished, wheezing - Cardiovascular Rhythm: regular - Integumentary Integumentary: Present: decreased turgor, normal - Psychiatric Psychiatric: Present: A&O x's 3, intact judgment & insight - Labs CBC & Chem 7: 08/25/21 15:49 08/28/21 07:00 Labs: Abnormal Lab Results - Last 24 Hours (Table) 08/27/21 08/28/21 08/28/21 Range/Units 20:19 06:10 07:00 BUN 21 H (7-17) mg/dL Glucose 142 H (74-99) mg/dL POC Glucose (mg/dL) 133 H 136 H (75-99) mg/dL ALT 47 H (4-34) U/L Creatine Kinase 192 H (30-135) U/L Total Protein 5.7 L (6.3-8.2) g/dL Albumin 3.2 L (3.5-5.0) g/dL 08/28/21 Range/Units 11:42 BUN (7-17) mg/dL Glucose (74-99) mg/dL POC Glucose (mg/dL) 153 H (75-99) mg/dL ALT (4-34) U/L Creatine Kinase (30-135) U/L Total Protein (6.3-8.2) g/dL Albumin (3.5-5.0) g/dL Assessment and Plan Plan: ASSESSMENT AND PLAN 1. Type II myocardial injury, cannot be ruled out, however he was cleared by cardiology, without any evidence of acute coronary syndrome, Patient troponin was elevated no change in EKG this point, patient is known to have history of cardiac disease will be admitted to the hospital seeing cardiology CK with troponin 3 be done we'll keep patient on nuclear monitoring technician. Other possibility the patient might have slight MS or arrhythmia had caused her to have worsening symptoms with infusion and probably pass out related to it with made patient had mild rhabdomyolysis the time. 2. Rhabdomyolysis: Continue hydration CK will be done by tomorrow morning carter krueger to watch for any worsening symptom. 3. Acute kidney injury: Most likely ATN from rhabdomyolysis, continue hydration repeat CMP tomorrow. 4. Atherosclerotic heart disease: Patient remain on metoprolol titrate 25 g twice a day, Zetia 10 mg daily, Eliquis 5 mg twice a day, amlodipine 5 mg a day. 5. COPD exacerbation: Was slightly bit worsening symptoms at this point, continue using DuoNeb as needed. Start on Solu-Medrol, IV every 6, on 1016, along with Pulmicort 0.5 mg twice a day, tobacco cessation program, consult with Dr. Russo, for outpatient and inpatient follow-up. 6. Chronic pain syndrome: Patient apparently hasn't MS Contin 15 mg 3 times a day along with ibuprofen 6 mg 3 times a day still on duloxetine 60 mg daily as well. 7. Hypertension: Remain on amlodipine 5 mg a day, along with metoprolol 25 mg twice a day and hydrochlorothiazide. 8. Hyperlipidemia: Apparently patient is not able to tolerate any statin she is on Zetia 10 mg a day only. 9. Paroxysmal Of A. fib with RVR: Patient remain on Eliquis 5 mg twice a day and metoprolol titrate 25 mg twice a day. 10. Worsening dementia: Patient remain on Aricept 5 mg daily continue medication still on circumflex well 25 g twice a day as well. 11 GI prophylaxis: Patient will be on omeprazole 40 mg twice a day. 12 DVT prophylaxis: Patient remain on Eliquis at this point. 13. COVID-19 testing, was negative. 14. Insomnia with confusion, patient will be back on her home dose of Seroquel 2 tablets of 25 mg at bedtime, Patient will be admitted to the hospital for a minimum of 2 night stay.
[2021-08-28] MEDS ORDERED: Magnesium Replacement Protocol 1 EACH MISC MISCELLANE PRN (14:16)
[2021-08-28] MEDS: MAGNESIUM SULFATE-D5W PMX 1 GM in DEXTROSE/WATER 1 100ML.BAG IVPB SCH ×2 (15:13→17:02)
[2021-08-28] MEDS: NICOTINE 21MG/24HR PATCH TRANSDERM SCH (15:15)
[2021-08-28] MEDS: IPRATROPIUM-ALBUTEROL 3 ML NEB INHALATION SCH ×2 (15:56→20:05)
[2021-08-28 16:42] LABS: Glucose,Whole Blood 217 mg/dL (75-99)
[2021-08-28] MEDS: INSULIN ASPART (NovoLOG) 100 UNIT/ML VIAL SQ SCH ×2 (17:18→21:41)
[2021-08-28 20:57] LABS: Glucose,Whole Blood 154 mg/dL (75-99)
[2021-08-28] MEDS: QUEtiapine 50 MG TAB PO SCH (21:42)
[2021-08-29] MEDS: MORPHINE SULFATE IR 15 MG TABLET PO SCH ×4 (01:02→23:30)
[2021-08-29] MEDS: DONEPEZIL 5 MG TAB PO SCH ×2 (02:26→21:29)
[2021-08-29] MEDS: IPRATROPIUM-ALBUTEROL 3 ML NEB INHALATION SCH ×6 (04:04→23:55)
[2021-08-29] MEDS: methylPREDNISolone SOD SUCCI 125 MG/2 ML VIAL IV SCH ×2 (04:16→09:00)
[2021-08-29 06:17] LABS: Glucose,Whole Blood 153 mg/dL (75-99)
[2021-08-29] MEDS: PANTOPRAZOLE 40 MG TABLET PO SCH ×2 (06:43→17:15)
[2021-08-29] MEDS: SODIUM CHLORIDE 0.9% 1,000 ML IV SCH (06:43)
[2021-08-29] MEDS: INSULIN ASPART (NovoLOG) 100 UNIT/ML VIAL SQ SCH ×4 (06:43→21:09)
[2021-08-29] MEDS: DULoxetine HCL 60 MG CAPSULE.DR PO SCH (09:00)
[2021-08-29] MEDS: METOPROLOL TARTRATE 25 MG TAB PO SCH ×2 (09:00→21:08)
[2021-08-29] MEDS: NICOTINE 21MG/24HR PATCH TRANSDERM SCH (09:01)
[2021-08-29] MEDS: amLODIPine 5 MG TAB PO SCH (09:01)
[2021-08-29] MEDS: APIXABAN 5 MG TAB PO SCH ×2 (09:01→21:09)
[2021-08-29] MEDS: EZETIMIBE 10 MG TAB PO SCH (09:09)
[2021-08-29] MEDS: BUDESONIDE 0.5 MG/2 ML NEBU INHALATION SCH ×2 (09:27→20:05)
[2021-08-29] MEDS ORDERED: FUROSEMIDE 10 MG/ML 4 ML VIAL IV STA (10:15)
[2021-08-29 11:57] LABS: Glucose,Whole Blood 189 mg/dL (75-99)
--- NOTE | 2021-08-29 13:56 | P.PN ---
Subjective Progress Note Date: 08/29/21 HISTORY OF PRESENT ILLNESS 70-year-old female one of Dr. Vo's patient with multiple medical problem was known to have history of COPD, CAD, multiple TIA and CVA, history of dementia, fibromyalgia, previous history of NM with significant short-term memory loss who apparently live home by herself. She woke up this morning try to get out of bed had extreme pain and discomfort in all extremity and had very difficult time ambulating, This Finally Made It to See His Mom and with His Help She Get Out Of Bed Try to Walk to the Bathroom She Tipped Backwards and Fell off Also Try to Walk Again Fell One More Time Patient Had Generalized Muscle Pain All over She Was Not Acting Herself She Was More Confused the Son Major Concern at the Time Specially with His Mom Been on Some Any Prescribed Medication That She Might Be Overdosing and Medication or Overmedicated. He Ended up Calling 911 and Brought Her to the Emergency Department by EMS, Still Having Slight Bit of Problem with Her Memory at the Time but More Problem with Ambulating and Walking, surprisingly CK was 1511 with troponin was 0.173 lactic acid 2.1 significant declining kidney function compared to before, no infection was found at the time drug screen was positive for opiates and twice IV anti-depression which patient is taking all in prescription medication. With the severity of her symptoms including rhabdomyolysis, acute kidney failure, non-ST NM patient be admitted to the hospital, CK with troponin 3 to be done, consult cardiology watch patient on rn cardiac continue to watch her CK continue IV hydration to improve the kidney function especially with the severity of the rhabdomyolysis at this point. 08/26: Patient denies having any chest pain or shortness of breath. Repeat blood work today is significantly improved with BUN 35, creatinine 1.14, CK 945. Troponins been 0.259, 7.509 and 0.458. Patient has been seen by cardiology and plan will be to continue eliquis and other cardiac medications. Plan will be for outpatient stress test. Echocardiogram reveals EF of 55-60% with mild concentric left ventricular hypertrophy, mild mitral annular calcification, mild tricuspid regurgitation, mild pulmonary hypertension. Patient has also been seen and followed by nephrology with recommendations to decrease IV fluids to 75 an hour, hold diuretics and hold amlodipine until systolic blood pressure greater than 120. 08/27: Patient is not doing well today, she is a little bit more confusion she says, has audible wheezing, not sleeping supposed to be on 2 Seroquel at night, patient cannot remember the dose. However chart says 25 mg twice a day. Patient has been smoking, no previous diagnosis of COPD yet, however she is a heavy smoker, with current wheezing noted on exam, his conversational dyspnea. Patient will be started on Solu-Medrol, Pulmicort nebulized solution, DuoNeb, check for MECHANICAL SYSTEMS DESIGN ENGINEER proBNP, and consult with Dr. Russo pulmonary medicine. Patient is on Ahlquist, 08/28: Patient still wheezing, shortness of breath, better with this., However the when necessary albuterol was not given consistently, we will schedule it at 4 times a day, continue budesonide, still on Solu Medrol 60 every 6 hours, patient is to start nicotine patches, per request. 08/29: Patient is complaining of wheezing with minimal exertion. Her lung sounds are improving. Solu-Medrol will be decreased to 40 mg IV every 8 hours and start prednisone in the morning. She states that she was up and out of bed yesterday. Mosquera catheter will be removed. Patient will be transferred to the [facility] floor. REVIEW OF SYSTEMS Constitutional: No fever, no chills, no night sweats. No weight change. No weakness, fatigue or lethargy. No daytime sleepiness. EENT: No headache. No blurred vision or double vision, no loss of vision. No loss of Hearing, no ringing in the ears, no dizziness. No nasal drainage or congestion. No epistaxis. No sore throat. Lungs: Reports shortness of breath with mild cough reports wheezes. Cardiovascular: Positive chest discomfort with slight shortness of breath positive PND orthopnea palpitation, positive lightheadedness and slight dizziness no episode of syncope. Not clear whether patient is having any arrhythmia or not this. Abdominal: No abdominal pain. No nausea, vomiting. No diarrhea. No constipation. No bloody or tarry stools.. No loss of appetite. Genitourinary: No dysuria, increased frequency, urgency. And mild incontinence. Musculoskeletal: Significant pain and discomfort in the back and tired muscular system including the back the shoulder the thigh the neck and so on. Integumentary: No wounds, no lesions. No rash or pruritus. No unusual bruising. No change in hair or nails. Neurologic: No aphasia. No facial droop. Slight confusion and mild altered mental status. No head injury. No headache. No paralysis. No paresthesia. Psychiatric: Positive depression with mild anxiety. Endocrine: No abnormal blood sugars. No weight change. No excessive sweating or thirst. No cold intolerance. PHYSICAL EXAMINATION Gen: This is 70-year-old laying in bed looks older than her age still in mild wheezes at the time of examination mildly confused and had problem been oriented to time and person. HEENT: Head is atraumatic, normocephalic. Pupils equal, round. Sclerae is ani cteric. NECK: Supple. No JVD. No lymphadenopathy. No thyromegaly. LUNGS: Decreased breath some Rhonchi Mild Expiratory Wheezes. HEART: Regular rhythm and rate soreness to positive S3. ABDOMEN: Soft. Bowel sounds are present. No masses. No tenderness. EXTREMITIES: Trace edema of the lower extremity generalized arthralgia and myalgia significant pain and discomfort in all 4 extremities. NEUROLOGICAL: Patient is awake, alert significant confusion. Cranial nerves 2 through 12 are grossly intact. ASSESSMENT AND PLAN 1. Type II myocardial injury cannot be ruled out, acute coronary syndrome has been ruled out by cardiology. As for patient to [facility] floor without t elemetry. 2. Rhabdomyolysis, improved. Recheck CK in the morning. 3. Acute kidney injury: Most likely ATN from rhabdomyolysis. 4. Atherosclerotic heart disease. Patient remain on metoprolol titrate 25 g twice a day, Zetia 10 mg daily, Eliquis 5 mg twice a day. 5. COPD with exacerbation. Solu-Medrol decreased to 40 mg every 8 hours and start prednisone in the morning, continue Pulmicort twice daily, smoking cessation, consult with Dr. Russo is pending and patient will follow-up as an ou tpatient. 6. Chronic pain syndrome: Patient apparently hasn't MS Contin 15 mg 3 times a day along with ibuprofen 6 mg 3 times a day still on duloxetine 60 mg daily as well. 7. Hypertension. Continue amlodipine 5 mg daily. Continue metoprolol 25 mg twice a day and hold hydrochlorothiazide. 8. Hyperlipidemia: Apparently patient is not able to tolerate any statin she is on Zetia 10 mg a day only. 9. Paroxysmal A. fib with RVR: Patient remain on Eliquis 5 mg twice a day and metoprolol titrate 25 mg twice a day. 10. Worsening dementia: Patient remain on Aricept 5 mg daily, Seroquel 25 g twice a day as well. 11. GI prophylaxis: Patient will be on omeprazole 40 mg twice a day. 12. DVT prophylaxis: Patient remain on Eliquis at this point. 13. COVID-19 testing, was negative. DISCHARGE PLAN Home with [facility] on Sunday. Impression and plan of care have been directed as dictated by the signing physician. Keyla Holloway nurse practitioner acting as scribe for signing physician. Objective - Vital Signs Vital signs: Vital Signs Temp 98.1 F 08/29/21 08:00 Pulse 71 08/29/21 09:41 Resp 24 08/29/21 08:00 BP 173/57 08/29/21 08:00 Pulse Ox 97 08/29/21 08:00 Intake & Output 08/28/21 08/29/21 08/29/21 18:59 06:59 18:59 Intake Total 420 425 Output Total 1075 750 Balance -655 -325 Weight 91.5 kg Intake: Intake, IV Titration 325 Amount Sodium Chloride 0.9% 1, 325 000 ml @ 75 mls/hr IV . [id number] [facility] Rx#:[id number] Oral 420 100 Output: Urine 1075 750 Uretheral ([place]) 475 750 Stool 0 Other: Voiding Method Indwelling Catheter Indwelling Catheter # Voids 0 # Bowel Movements 1 - Labs CBC & Chem 7: 08/25/21 15:49 08/28/21 07:00 Labs: Abnormal Lab Results - Last 24 Hours (Table) 08/28/21 08/28/21 08/28/21 Range/Units 07:00 11:42 16:40 BUN 21 H (7-17) mg/dL Glucose 142 H (74-99) mg/dL POC Glucose (mg/dL) 153 H 217 H (75-99) mg/dL ALT 47 H (4-34) U/L Creatine Kinase 192 H (30-135) U/L Total Protein 5.7 L (6.3-8.2) g/dL Albumin 3.2 L (3.5-5.0) g/dL 08/28/21 08/29/21 Range/Units 20:54 06:02 BUN (7-17) mg/dL Glucose (74-99) mg/dL POC Glucose (mg/dL) 154 H 153 H (75-99) mg/dL ALT (4-34) U/L Creatine Kinase (30-135) U/L Total Protein (6.3-8.2) g/dL Albumin (3.5-5.0) g/dL
[2021-08-29 16:59] LABS: Glucose,Whole Blood 146 mg/dL (75-99)
[2021-08-29] MEDS: methylPREDNISolone SOD SUCCI 40 MG/ML 1 ML VIAL IV SCH ×2 (17:15→23:30)
--- NOTE | 2021-08-29 17:59 | PN ---
PROGRESS NOTE The patient is seen for followup for acute kidney injury. The patient's renal function has improved. She had been maintained on IV fluids. This morning she is complaining of shortness of breath. She appears volume overloaded. EXAMINATION: Today blood pressure 150/62, heart rate of 70 per minute, she is afebrile. Examination of the heart S1, S2. Examination of the lungs, bilateral breath sounds are heard, decreased breath sounds at the bases with basal crackles heard. Abdomen is soft, nontender. Examination of lower extremities shows no significant edema. LAB: Show serum creatinine of 0.6 on 08/28/2021. Potassium 4.5. ASSESSMENT: 1. Acute kidney injury, currently significantly improved, mostly associated with rhabdomyolysis. 2. Mild rhabdomyolysis, now improved. 3. Hypokalemia status post replacement. 4. Volume overload. Patient will be given 1 dose of IV Lasix and we can discontinue the IV fluids. PLAN: Discontinue IV fluids. IV Lasix x1. MMODL / IJN: [id number] /
[2021-08-29 19:59] LABS: Glucose,Whole Blood 173 mg/dL (75-99)
[2021-08-29] MEDS: QUEtiapine 50 MG TAB PO SCH (21:08)
[2021-08-30] MEDS: IPRATROPIUM-ALBUTEROL 3 ML NEB INHALATION SCH ×4 (03:50→15:15)
[2021-08-30 05:07] VITALS: TEMP 97.7
[2021-08-30 06:13] LABS: Glucose,Whole Blood 128 mg/dL (75-99)
[2021-08-30] MEDS: INSULIN ASPART (NovoLOG) 100 UNIT/ML VIAL SQ SCH ×2 (06:34→12:17)
[2021-08-30] MEDS: PANTOPRAZOLE 40 MG TABLET PO SCH (06:40)
[2021-08-30] MEDS: BUDESONIDE 0.5 MG/2 ML NEBU INHALATION SCH (07:57)
[2021-08-30] MEDS: methylPREDNISolone SOD SUCCI 40 MG/ML 1 ML VIAL IV SCH (09:43)
[2021-08-30] MEDS: NICOTINE 21MG/24HR PATCH TRANSDERM SCH (09:44)
[2021-08-30] MEDS: APIXABAN 5 MG TAB PO SCH (09:44)
[2021-08-30] MEDS: amLODIPine 5 MG TAB PO SCH (09:44)
[2021-08-30] MEDS: DULoxetine HCL 60 MG CAPSULE.DR PO SCH (09:44)
[2021-08-30] MEDS: METOPROLOL TARTRATE 25 MG TAB PO SCH (09:44)
[2021-08-30] MEDS: EZETIMIBE 10 MG TAB PO SCH (09:52)
[2021-08-30] MEDS: MORPHINE SULFATE IR 15 MG TABLET PO SCH (09:52)
[2021-08-30 09:55] VITALS: RESP 16
--- NOTE | 2021-08-30 11:07 | P.DS ---
Providers Date of admission: 08/25/21 11:53 Expected date of discharge: 08/30/21 Attending physician: Lnadon Horne Consults: 08/25/21 11:54 Consult Physician Routine Consulting Provider: Jayson Soto Consult Reason/Comments: rhabdo Do you want consulting provider notified?: Yes 08/27/21 15:01 Consult Physician Routine Consulting Provider: Tin Russo Consult Reason/Comments: copd wheeze Do you want consulting provider notified?: Yes Primary care physician: Hi Vo MD Hospital Course: HISTORY OF PRESENT ILLNESS 70-year-old female one of Dr. Vo's patient with multiple medical problem was known to have history of COPD, CAD, multiple TIA and CVA, history of dementia, fibromyalgia, previous history of ME with significant short-term memory loss who apparently live home by herself. She woke up this morning try to get out of bed had extreme pain and discomfort in all extremity and had very difficult time ambulating, This Finally Made It to See His Mom and with His Help She Get Out Of Bed Try to Walk to the Bathroom She Tipped Backwards and Fell off Also Try to Walk Again Fell One More Time Patient Had Generalized Muscle Pain All over She Was Not Acting Herself She Was More Confused the Son Major Concern at the Time Specially with His Mom Been on Some Any Prescribed Medication That She Might Be Overdosing and Medication or Overmedicated. He Ended up Calling 911 and Brought Her to the Emergency Department by EMS, Still Having Slight Bit of Problem with Her Memory at the Time but More Problem with Ambulating and Walking, surprisingly CK was 1511 with troponin was 0.173 lactic acid 2.1 significant declining kidney function compared to before, no infection was found at the time drug screen was positive for opiates and twice IV anti-depression which patient is taking all in prescription medication. With the severity of her symptoms including rhabdomyolysis, acute kidney failure, non-ST ME patient be admitted to the hospital, CK with troponin 3 to be done, consult cardiology watch patient on screw machine hand continue to watch her CK continue IV hydration to improve the kidney function especially with the severity of the rhabdomyolysis at this point. 08/26: Patient denies having any chest pain or shortness of breath. Repeat blood work today is significantly improved with BUN 35, creatinine 1.14, CK 945. Troponins been 0.259, 7.509 and 0.458. Patient has been seen by cardiology and plan will be to continue eliquis and other cardiac medications. Plan will be for outpatient stress test. Echocardiogram reveals EF of 55-60% with mild concentric left ventricular hypertrophy, mild mitral annular calcification, mild tricuspid regurgitation, mild pulmonary hypertension. Patient has also been seen and followed by nephrology with recommendations to decrease IV fluids to 75 an hour, hold diuretics and hold amlodipine until systolic blood pressure greater than 120. 08/27: Patient is not doing well today, she is a little bit more confusion she says, has audible wheezing, not sleeping supposed to be on 2 Seroquel at night, patient cannot remember the dose. However chart says 25 mg twice a day. Justine cardenas has been smoking, no previous diagnosis of COPD yet, however she is a heavy smoker, with current wheezing noted on exam, his conversational dyspnea. Patient will be started on Solu-Medrol, Pulmicort nebulized solution, DuoNeb, check for FISHING VESSEL MATE proBNP, and consult with Dr. Russo pulmonary medicine. Patient is on [place], 08/28: Patient still wheezing, shortness of breath, better with this., However the when necessary albuterol was not given consistently, we will schedule it at 4 times a day, continue budesonide, still on Solu Medrol 60 every 6 hours, patient is to start nicotine patches, per request. 08/29: Patient is complaining of wheezing with minimal exertion. Her lung sounds are improving. Solu-Medrol will be decreased to 40 mg IV every 8 hours and start prednisone in the morning. She states that she was up and out of bed yesterday. Mosquera catheter will be removed. Patient will be transferred to the [facility] floor. 08/30: Patient states that her breathing is much improved today and she is glad she spent another night. Patient is not been seen by Dr. Russo. Outpatient follow-up will be set up. Patient will be transitioned from DuoNeb treatments to albuterol inhaler and Symbicort inhaler and Solu-Medrol will be transitioned to oral prednisone. Patient remains afebrile, heart rate 65, blood pressure 146/60, pulse ox 95% on room air. BUN 34 creatinine 0.82. CO2 32 otherwise electrolytes are normal. Capillary blood glucose running between 128 and 173. She will be discharged home today in stable condition. ASSESSMENT AND PLAN 1. Type II myocardial injury cannot be ruled out, acute coronary syndrome has been ruled out by cardiology. 2. Rhabdomyolysis, improved. 3. Acute kidney injury, ATN from rhabdomyolysis. 4. Atherosclerotic heart disease. 5. COPD with exacerbation. 6. Chronic pain syndrome. 7. Hypertension. 8. Hyperlipidemia. 9. Paroxysmal A. fib with RVR. 10. Worsening dementia. 11. COVID-19 testing, was negative. DISCHARGE PLAN Home with [facility]. Impression and plan of care have been directed as dictated by the signing physician. Keyla Holloway nurse practitioner acting as scribe for signing physician. Patient Condition at Discharge: Good Plan - Discharge Summary New Discharge Prescriptions: New Nicotine 21Mg/24Hr Patch [Habitrol] 1 patch TRANSDERM DAILY #30 patch predniSONE 0 mg PO DIRECTED #45 tab Budesonide/Formoterol Fumarate [Symbicort 160-4.5 Mcg Inhaler] 2 puff INHALATION BID #10.2 gm Albuterol Inhaler [Ventolin Hfa Inhaler] 2 puff INHALATION RT-QID #8 gm Doxycycline [Vibramycin] 100 mg PO BID 8 Days #16 cap Continue Metoprolol Tartrate 25 mg PO BID hydroCHLOROthiazide 25 mg PO DAILY Apixaban [Eliquis] 5 mg PO BID #60 tab amLODIPine [Norvasc] 5 mg PO DAILY #60 tab Ezetimibe [Zetia] 10 mg PO DAILY Donepezil [Aricept] 5 mg PO HS DULoxetine HCL [Cymbalta] 60 mg PO DAILY Omeprazole 40 mg PO AC-BID Ondansetron [Zofran] 4 - 8 mg PO BID PRN PRN Reason: Nausea Umeclidinium [place] [Incruse Ellipta] 1 puff INHALATION RT-DAILY Dicyclomine [Bentyl] 10 mg PO TID PRN PRN Reason: ibs Ibuprofen [Motrin] 600 mg PO Q8HR Morphine Sulfate Ir [MSIR] 15 mg PO Q8H Changed QUEtiapine [SEROquel] 50 mg PO HS #0 Discharge Medication List Metoprolol Tartrate 25 mg PO BID 07/03/20 [History] hydroCHLOROthiazide 25 mg PO DAILY 07/03/20 [History] Apixaban [Eliquis] 5 mg PO BID #60 tab 07/07/20 [Rx] amLODIPine [Norvasc] 5 mg PO DAILY #60 tab 07/07/20 [Rx] Ezetimibe [Zetia] 10 mg PO DAILY 05/25/21 [History] Omeprazole 40 mg PO AC-BID 05/25/21 [History] Ondansetron [Zofran] 4 - 8 mg PO BID PRN 05/25/21 [History] DULoxetine HCL [Cymbalta] 60 mg PO DAILY 06/11/21 [History] Dicyclomine [Bentyl] 10 mg PO TID PRN 06/11/21 [History] Donepezil [Aricept] 5 mg PO HS 06/11/21 [History] Umeclidinium [place]ag[place] [Incruse Ellipta] 1 puff INHALATION RT-DAILY 06/11/21 [History] Ibuprofen [Motrin] 600 mg PO Q8HR 08/25/21 [History] Morphine Sulfate Ir [MSIR] 15 mg PO Q8H 08/25/21 [History] Albuterol Inhaler [Ventolin Hfa Inhaler] 2 puff INHALATION RT-QID #8 gm 08/30/21 [Rx] Budesonide/Formoterol Fumarate [Symbicort 160-4.5 Mcg Inhaler] 2 puff INHALATION BID #10.2 gm 08/30/21 [Rx] Doxycycline [Vibramycin] 100 mg PO BID 8 Days #16 cap 08/30/21 [Rx] Nicotine 21Mg/24Hr Patch [Habitrol] 1 patch TRANSDERM DAILY #30 patch 08/30/21 [Rx] QUEtiapine [SEROquel] 50 mg PO HS #0 08/30/21 [Rx] predniSONE 0 mg PO DIRECTED #45 tab 08/30/21 [Rx] Follow up Appointment(s)/Referral(s): Hi Vo MD [Primary Care Provider] - 09/12/21 11:00 am [facility], [NON-STAFF] - 1 Week Tin Russo MD [STAFF PHYSICIAN] - 09/13/21 12:45 pm
[2021-08-30 11:09] LABS: Calcium 9.5 mg/dL (8.4-10.2); Potassium 3.7 mmol/L (3.5-5.1)
[2021-08-30 11:55] LABS: Glucose,Whole Blood 166 mg/dL (75-99)
[2021-08-30] MEDS ORDERED: FUROSEMIDE 10 MG/ML 4 ML VIAL IV STA (12:22)
[2021-08-30 12:24] VITALS: BP 146/60; PULSE 96
--- NOTE | 2021-08-30 15:24 | PN ---
PROGRESS NOTE The patient is seen for followup for acute kidney injury and volume overload. IV fluids were discontinued. Patient received a dose of IV Lasix yesterday. She states she is feeling better with improved shortness of breath. There are plans for possible discharge today. No complaints of chest pain. EXAMINATION: Today blood pressure was 146/60, heart rate 96 per minute. Patient is afebrile. Examination of the heart S1, S2. Examination of the lungs, decreased breath sounds at bases. Abdomen is soft, nontender. Examination of lower extremities shows trace edema bilaterally. 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 LAB: Show sodium 140, potassium 3.7, chloride 101, CO2 is 32, BUN 34, creatinine 0.82. ASSESSMENT: 1. Acute kidney injury, nonoliguric, prerenal and secondary to rhabdomyolysis, currently resolved. 2. Mild rhabdomyolysis, improved. 3. Hypertension. 4. Volume overload, currently improved. We will repeat another dose of IV Lasix. 5. Hypokalemia status post replacement. PLAN: Repeat IV Lasix. Continue off IV fluids. The patient is advised to avoid use of nonsteroidal anti-inflammatory agents. She can resume her hydrochlorothiazide post discharge 25 mg that she was taking. MMODL / IJN: [id number] /
--- NOTE | 2021-08-30 16:10 | P.CNPUL ---
History of Present Illness Consult date: 08/30/21 Reason for consult: dyspnea, COPD, hypoxemia Chief complaint: Shortness of breath and wheezing History of present illness: Patient is a 70-year-old female came into emergency department with generalized weakness, patient was found on the floor, there are some issues about overdosing on prescribed pain medicines, it appears that patient fell down and hit her head and passed out for unknown period time son notified EMS, patient was brought into emergency department, on arrival she was awake and alert 3, however oxygen saturation is 82% room air at rest of the physical examination within normal limit patient was placed on oxygen, patient has a long-standing history of the short-term memory loss history of chronic neuropathy lower extremity chronic pain and back pain history of stroke in 2016 followed by TIA in 2007 chronic bronchitis sinus problem chronic dizziness, patient has a long-standing history of smoking and nicotine use smokes about 1 pack per day, had been chest x-ray significant for borderline cardiomegaly otherwise unremarkable, computed tomography scan of the head unremarkable, CT C-spine no acute fracture identified, echocardiogram significant for a ejection fraction is 5060%, mild TR and MR and pulmonary hypertension is noted, patient was wheezing at that time thought to be related to acute injury and volume overload however wheezing has improved with diuresis, patient also had acute rhabdomyolysis with acute renal failure and acute kidney injury and volume overload gain taken off of fluids can't diuresis improved patient is being planned for discharge from pulmonary standpoint with further workup and evaluation for COPD and likely sleep disorder breathing can perform her outpatient, patient does have a history of the snoring and excessive daytime sleepiness tiredness and fatigue Review of Systems All systems: negative Past Medical History Past Medical History: Atrial Fibrillation, Asthma, Coronary Artery Disease (CAD), Chest Pain / Angina, COPD, CVA/TIA, Fibromyalgia, GERD/Reflux, Hyperlipid emia, Hypertension, Memory Impairment, Myocardial Infarction ([place]), Osteoarthritis (OA), Pneumonia Additional Past Medical History / Comment(s): SOME SHORT TERM MEMORY LOSS, NE UROPATHY BILATERAL UPPER AND LOWER EXTREMITIES, CHRONIC BACK PAIN, DJD, CVA 2006, TIA 2007, BRONCHITIS, SINUS PROBLEMS AT TIMES, 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, BILATERAL TINNITIS, PAST L FOOT FRACTURES THAT HEALED INCORRECTLY, UTIs Last Myocardial Infarction Date:: vanessa History of Any Multi-Drug Resistant Organisms: None Reported Past Surgical History: Bladder Surgery, Cholecystectomy, Heart Catheterization, Hysterectomy, Orthopedic Surgery, Tonsillectomy, Tubal Ligation Additional Past Surgical History / Comment(s): 2013 CARDIAC CATH TX MEDICALLY, BENIGN OVARIAN TUMOR REMOVAL, BENIGN PERINEAL TUMOR REMOVAL, BILATERAL VOCAL CORDS STRIPPED D/T TUMORS, FIRST 2 FINGER r HAND PARTIAL AMP D/T INJURY, 2 BLADDER SUSPENSIONS, COLONOSCOPY/HEMORRHOIDECTOMY. Past Anesthesia/Blood Transfusion Reactions: Previous Problems w/ Anesthesia Additional Past Anesthesia/Blood Transfusion Reaction / Comment(s): difficulty waking in past. claustrophobia Past Psychological History: Anxiety, Depression Additional Psychological History / Comment(s): Pt lives with son right now with 1 cat. Pt uses a wheeled walker or a cane. Pt no longer drives, she takes the bus. She denies any suicidal thoughts/plans. Smoking Status: Current every day smoker Past Alcohol Use History: None Reported Additional Past Alcohol Use History / Comment(s): Started smoking at age 15 or 16 up to 2-1/2 packs per day and is currently down to 1ppd. Patient does give history of heavy alcohol abuse off and on in the past but had quit alcohol completely 3 years ago. She does smoke marijuana. She uses a cane for ambulation. Past Drug Use History: Marijuana Additional Drug Use History / Comment(s): Occasional marijuana use - Past Family History Mother Family Medical History: CVA/TIA Additional Family Medical History / Comment(s): Mother at age 73 from a brain stem stroke. Brother(s) Family Medical History: Dementia Additional Family Medical History / Comment(s): Patient has 2 full brothers with no major medical problems. Patient does not have any sisters. Patient has 3 sons with no major medical problems. Son(s) Family Medical History: Cancer Additional Family Medical History / Comment(s): ONE SON IS OBESE. THE OTHER SON HAD LYMPHOMA Father Family Medical History: Congestive Heart Failure ([place]), Myocardial Infarction ([place]) Additional Family Medical History / Comment(s): Father at age 76 from a massive heart attack. Medications and Allergies Home Medications Medication Instructions Recorded Confirmed Type Metoprolol Tartrate 25 mg PO BID 07/03/20 08/25/21 History hydroCHLOROthiazide 25 mg PO DAILY 07/03/20 08/25/21 History Apixaban [Eliquis] 5 mg PO BID #60 tab 07/07/20 08/25/21 Rx amLODIPine [Norvasc] 5 mg PO DAILY #60 tab 07/07/20 08/25/21 Rx Ezetimibe [Zetia] 10 mg PO DAILY 05/25/21 08/25/21 History Omeprazole 40 mg PO AC-BID 05/25/21 08/25/21 History Ondansetron [Zofran] 4 - 8 mg PO BID PRN 05/25/21 08/25/21 History DULoxetine HCL [Cymbalta] 60 mg PO DAILY 06/11/21 08/25/21 History Dicyclomine [Bentyl] 10 mg PO TID PRN 06/11/21 08/25/21 History Donepezil [Aricept] 5 mg PO HS 06/11/21 08/25/21 History Umeclidinium [place] [Incruse 1 puff INHALATION RT-DAILY 06/11/21 08/25/21 History Ellipta] Ibuprofen [Motrin] 600 mg PO Q8HR 08/25/21 08/25/21 History Morphine Sulfate Ir [MSIR] 15 mg PO Q8H 08/25/21 08/25/21 History Albuterol Inhaler [Ventolin Hfa 2 puff INHALATION RT-QID #8 gm 08/30/21 Rx Inhaler] Budesonide/Formoterol Fumarate 2 puff INHALATION BID #10.2 gm 08/30/21 Rx [Symbicort 160-4.5 Mcg Inhaler] Doxycycline [Vibramycin] 100 mg PO BID 8 Days #16 cap 08/30/21 Rx Nicotine 21Mg/24Hr Patch [Habitrol] 1 patch TRANSDERM DAILY #30 patch 08/30/21 Rx QUEtiapine [SEROquel] 50 mg PO HS #0 08/30/21 08/25/21 Rx predniSONE 0 mg PO DIRECTED #45 tab 08/30/21 Rx Allergies Allergy/AdvReac Type Severity Reaction Status Date / Time atorvastatin [From Lipitor] Allergy Unknown Verified 08/25/21 11:23 cephalexin monohydrate Allergy Rash/Hives Verified 08/25/21 11:23 [From Keflex] ciprofloxacin [From Cipro] Allergy Swelling Verified 08/25/21 11:23 Iodinated Contrast Media Allergy Dyspnea Verified 08/25/21 11:23 latex Allergy Rash/Hives Verified 08/25/21 11:23 oxytetracycline Allergy Rash/Hives Verified 08/25/21 11:23 [From Terramycin] Penicillins Allergy Rash/Hives Verified 08/25/21 11:23 Sulfa (Sulfonamide Allergy Rash/Hives Verified 08/25/21 11:23 Antibiotics) Physical Exam Vitals: Vital Signs Temp Pulse Pulse Resp BP Pulse Ox 08/30/21 12:00 96 16 146/60 95 08/30/21 11:41 65 16 08/30/21 11:32 98 08/30/21 11:31 65 16 08/30/21 08:00 70 16 145/64 94 L 08/30/21 04:00 97.7 F 84 18 145/64 98 08/30/21 02:00 77 08/29/21 23:32 98.8 F 77 16 162/77 96 08/29/21 20:21 68 08/29/21 20:05 64 08/29/21 20:00 98.1 F 74 16 173/74 94 L 08/29/21 16:04 72 08/29/21 16:00 76 16 170/66 97 Intake and Output 08/30/21 08/30/21 08/30/21 06:59 14:59 22:59 Intake Total 480 Output Total 500 0 Balance -500 480 Intake: Oral 480 Output: Urine 500 Stool 0 0 Other: Voiding Method Indwelling Catheter Indwelling Catheter Weight 100 kg - Constitutional General appearance: average body habitus, cooperative, disheveled - EENT Eyes: EOMI, PERRLA ENT: normal oropharynx Ears: bilateral: normal - Neck Carotids: bilateral: upstroke normal Thyroid: bilateral: normal size - Respiratory Respiratory: bilateral: diminished - Cardiovascular Rhythm: regular Heart sounds: normal: S1, S2 - Gastrointestinal General gastrointestinal: soft - Integumentary Integumentary: normal turgor - Neurologic Neurologic: CNII-XII intact - Musculoskeletal Musculoskeletal: gait normal, generalized weakness, strength equal bilaterally - Psychiatric Psychiatric: A&O x's 3, appropriate affect, intact judgment & insight Results - Laboratory Findings CBC and BMP: 08/25/21 15:49 08/30/21 10:32 PT/INR, D-dimer PT 10.7 sec (9.0-12.0) 08/25/21 08:57 INR 1.0 (<1.2) 08/25/21 08:57 Abnormal lab findings: Abnormal Labs 08/25/21 08/25/21 08/25/21 08:57 08:57 08:57 WBC 12.8 H Neutrophils # 10.7 H Potassium Carbon Dioxide BUN 36 H Creatinine 1.84 H Glucose 148 H POC Glucose (mg/dL) Osmolality 302 H Plasma Lactic Acid Vinny 2.1 H* Calcium AST 102 H ALT 69 H Creatine Kinase 1511 H* CK-MB (CK-2) Troponin I Total Protein 6.1 L Albumin Urine Protein Urine Blood Hyaline Casts Urine Mucus Urine Opiates Screen U Tricyclic Antidepress 08/25/21 08/25/21 08/25/21 08:57 10:17 11:59 WBC Neutrophils # Potassium Carbon Dioxide BUN Creatinine Glucose POC Glucose (mg/dL) Osmolality Plasma Lactic Acid Vinny Calcium AST ALT Creatine Kinase CK-MB (CK-2) Troponin I 0.173 H* Total Protein Albumin Urine Protein Trace H Urine Blood Trace H Hyaline Casts 5 H Urine Mucus Rare H Urine Opiates Screen Detected H U Tricyclic Antidepress Detected H 08/25/21 08/25/21 08/25/21 15:49 15:49 15:49 WBC 13.4 H Neutrophils # 11.1 H Potassium Carbon Dioxide BUN 37 H Creatinine 1.52 H Glucose 121 H POC Glucose (mg/dL) Osmolality Plasma Lactic Acid Vinny Calcium 8.2 L AST 95 H ALT 66 H Creatine Kinase CK-MB (CK-2) Troponin I 0.259 H* Total Protein 5.7 L Albumin 3.3 L Urine Protein Urine Blood Hyaline Casts Urine Mucus Urine Opiates Screen U Tricyclic Antidepress 08/25/21 08/25/21 08/25/21 15:49 20:57 22:49 WBC Neutrophils # Potassium Carbon Dioxide BUN Creatinine Glucose POC Glucose (mg/dL) Osmolality Plasma Lactic Acid Vinny Calcium AST ALT Creatine Kinase CK-MB (CK-2) 15.4 H Troponin I 0.509 H* 0.458 H* Total Protein Albumin Urine Protein Urine Blood Hyaline Casts Urine Mucus Urine Opiates Screen U Tricyclic Antidepress 08/26/21 08/27/21 08/27/21 07:01 08:46 20:19 WBC Neutrophils # Potassium 3.3 L Carbon Dioxide BUN 35 H 23 H Creatinine 1.14 H Glucose 107 H 165 H POC Glucose (mg/dL) 133 H Osmolality Plasma Lactic Acid Vinny Calcium AST ALT Creatine Kinase 945 H CK-MB (CK-2) Troponin I Total Protein Albumin Urine Protein Urine Blood Hyaline Casts Urine Mucus Urine Opiates Screen U Tricyclic Antidepress 08/28/21 08/28/21 08/28/21 06:10 07:00 11:42 WBC Neutrophils # Potassium Carbon Dioxide BUN 21 H Creatinine Glucose 142 H POC Glucose (mg/dL) 136 H 153 H Osmolality Plasma Lactic Acid Vinny Calcium AST ALT 47 H Creatine Kinase 192 H CK-MB (CK-2) Troponin I Total Protein 5.7 L Albumin 3.2 L Urine Protein Urine Blood Hyaline Casts Urine Mucus Urine Opiates Screen U Tricyclic Antidepress 08/28/21 08/28/21 08/29/21 16:40 20:54 06:02 WBC Neutrophils # Potassium Carbon Dioxide BUN Creatinine Glucose POC Glucose (mg/dL) 217 H 154 H 153 H Osmolality Plasma Lactic Acid Vinny Calcium AST ALT Creatine Kinase CK-MB (CK-2) Troponin I Total Protein Albumin Urine Protein Urine Blood Hyaline Casts Urine Mucus Urine Opiates Screen U Tricyclic Antidepress 08/29/21 08/29/21 08/29/21 11:54 16:57 19:57 WBC Neutrophils # Potassium Carbon Dioxide BUN Creatinine Glucose POC Glucose (mg/dL) 189 H 146 H 173 H Osmolality Plasma Lactic Acid Vinny Calcium AST ALT Creatine Kinase CK-MB (CK-2) Troponin I Total Protein Albumin Urine Protein Urine Blood Hyaline Casts Urine Mucus Urine Opiates Screen U Tricyclic Antidepress 08/30/21 08/30/21 08/30/21 06:11 10:32 11:53 WBC Neutrophils # Potassium Carbon Dioxide 32 H BUN 34 H Creatinine Glucose 141 H POC Glucose (mg/dL) 128 H 166 H Osmolality Plasma Lactic Acid Vinny Calcium AST ALT Creatine Kinase CK-MB (CK-2) Troponin I Total Protein Albumin Urine Protein Urine Blood Hyaline Casts Urine Mucus Urine Opiates Screen U Tricyclic Antidepress - Diagnostic Findings Chest x-ray: report reviewed, image reviewed (Finding as noted above) Assessment and Plan Assessment: Wheezing likely related to fluid overload resolved and improved with diuresis COPD and not in exacerbation Acute kidney injury Acute rhabdomyolysis Hypertension hypertensive cardiovascular disease Chronic neck pain and back pain on narcotics Chronic neuropathy Status post fall with syncopal episode Plan: Would recommend discharge from pulmonary standpoint Patient oxygen saturation is stable on room air more than 90% Continue deep breathing exercise incentive spirometry Recommend follow-up as outpatient for evaluation of COPD and sleep disorder breathing and sleep apnea Time with Patient: Greater than 30
== END 2021-08-30 16:05 | disposition home or self-care (01) | DRG 557 ==
LOC: EC 08:33 → 3SCARD 11:53
PROVIDERS: ADMIT Internal Medicine Geriatric Medicine; ATTEND Internal Medicine Geriatric Medicine
DX: M62.82 Rhabdomyolysis (principal); N17.0 Acute kidney failure with tubular necrosis; I21.A1 Myocardial infarction type 2; J44.1 Chronic obstructive pulmonary disease with (acute) exacerbation; E86.0 Dehydration; D72.829 Elevated white blood cell count, unspecified; E78.5 Hyperlipidemia, unspecified; E86.1 Hypovolemia; E87.6 Hypokalemia; F03.90 Unspecified dementia, unspecified severity, without behavioral disturbance, psychotic disturbance, mood disturbance, and anxiety; F17.210 Nicotine dependence, cigarettes, uncomplicated; F32.9 Major depressive disorder, single episode, unspecified; F40.240 Claustrophobia; G47.00 Insomnia, unspecified; G62.9 Polyneuropathy, unspecified; G89.4 Chronic pain syndrome; I25.10 Atherosclerotic heart disease of native coronary artery without angina pectoris; Z20.822 Contact with and (suspected) exposure to COVID-19; I25.2 Old myocardial infarction; I11.9 Hypertensive heart disease without heart failure; I27.20 Pulmonary hypertension, unspecified; I48.0 Paroxysmal atrial fibrillation; K70.9 Alcoholic liver disease, unspecified; M79.7 Fibromyalgia; R09.02 Hypoxemia; T50.901A Poisoning by unspecified drugs, medicaments and biological substances, accidental (unintentional), initial encounter; W19.XXXA Unspecified fall, initial encounter; Z79.01 Long term (current) use of anticoagulants; Z79.51 Long term (current) use of inhaled steroids; Z79.899 Other long term (current) drug therapy; Z82.3 Family history of stroke; Z82.49 Family history of ischemic heart disease and other diseases of the circulatory system; Z86.73 Personal history of transient ischemic attack (TIA), and cerebral infarction without residual deficits; Z90.710 Acquired absence of both cervix and uterus; R55 Syncope and collapse; I95.9 Hypotension, unspecified; E87.70 Fluid overload, unspecified
CPT/HCPCS: 36415; 70450; 71045; 72125; 72170; 80048; 80053; 80143; 80179; 80306; 80320; 81001; 82550; 82553; 83605; 83735; 83880; 83930; 84484; 85025; 85610; 85730; 87636; 93005; 93306; 94640; 94760; 99285

== ENCOUNTER → 2021-11-24 | Outpatient (CLI) | payer MEDICARE, OTHER ==
[2021-11-24 19:38] LABS: ALT 8 U/L (8-44); AST 10 U/L (13-35); African American GFR (CKD) 75.1 (60.0-200.0); Albumin 4.2 g/dL (3.8-4.9); Albumin/Globulin Ratio 2.47 (1.60-3.17); Alkaline Phosphatase 114 U/L (41-126); BUN/Creat Ratio 21.33 Ratio (12.00-20.00); Blood Urea Nitrogen 19.2 mg/dL (9.0-27.0); Calcium 9.8 mg/dL (8.7-10.3); Carbon Dioxide 25.7 mmol/L (20.0-27.5); Chloride 104 mmol/L (96-109); Globulin 1.7 g/dL (1.6-3.3); Glucose 95 mg/dL (70-110); Non-African American GFR(CKD) 64.8 (60.0-200.0); Potassium 4.6 mmol/L (3.5-5.5); Sodium 142 mmol/L (135-145); Total Protein 5.9 g/dL (6.2-8.2)
[2021-11-24 20:40] LABS: HCT 40.7 % (37.2-46.3); HGB 12.3 g/dL (12.0-15.0); MCH 26.8 pg (27.0-32.0); MCHC 30.2 g/dL (32.0-37.0); MCV 88.7 fL (80.0-97.0); Mean Platelet Volume 11.3 fL (9.5-12.2); Platelet Count 270 X 10*3/uL (140-440); RBC 4.59 X 10*6/uL (4.10-5.20); RDW 13.9 % (11.5-14.5); WBC 6.22 X 10*3/uL (4.50-10.00)
== END | disposition home or self-care (01) ==
LOC: LABWHC1 11:18
PROVIDERS: ATTEND Internal Medicine
DX: I10 Essential (primary) hypertension (principal); M54.81 Occipital neuralgia; M54.16 Radiculopathy, lumbar region; K85.20 Alcohol induced acute pancreatitis without necrosis or infection; Z79.899 Other long term (current) drug therapy; R41.3 Other amnesia; R74.01 Elevation of levels of liver transaminase levels
CPT/HCPCS: 36415; 80053; 80061; 82306; 82607; 83036; 84443; 85027

== ENCOUNTER → 2021-11-30 | Outpatient (CLI) | payer MEDICARE, OTHER ==
--- NOTE | 2021-12-01 05:09 | MR ---
EXAMINATION TYPE: MR lumbar spine wo con DATE OF EXAM: 11/30/2021 COMPARISON: 01/24/2016 HISTORY: Back pain that radiates to right and left buttock and travels down the right front thigh Multiplanar multiecho imaging of the lumbar spine without contrast. Lumbar vertebrae have normal alignment. Disc spaces are fairly normal for age. Posterior elements are intact. There is a mild posterior disc bulge at L5-S1. There is some narrowing of the right-sided L5 -S1 neural foramen related to disc space narrowing and facet arthropathy. There is no lumbar spinal s tenosis. There is no compression fracture. There is no lumbar paraspinal mass. Visualized sacroiliac joints appear intact. Lumbar nerve roots appear fairly normal. IMPRESSION: There is right side L5-S1 neural foraminal stenosis not significantly different than last exam. No fr acture. No spinal stenosis.
== END | disposition home or self-care (01) ==
LOC: RADMRIMAIN 12:57
PROVIDERS: ATTEND Orthopaedic Surgery
DX: M51.16 Intervertebral disc disorders with radiculopathy, lumbar region (principal); M99.73 Connective tissue and disc stenosis of intervertebral foramina of lumbar region
CPT/HCPCS: 72148

== ENCOUNTER → 2022-02-08 | Outpatient (CLI) | payer MEDICARE, OTHER ==
[2022-02-08 12:35] VITALS: BP 134/65; PULSE 76; RESP 18; TEMP 98.4
--- NOTE | 2022-02-08 12:43 | P.PN ---
Subjective Progress Note Date: 02/08/22 Principal diagnosis: A 71 yr old female with a caregiver at side with a history of severe and chronic neck pain secondary to cervical degenerative disc diseases and spondylosis with facet arthropathy presents today for evaluation of last C2-C3 and third occipital nerve block from July 2021. She states she expressed 80% pain relief for one whole month status post procedure, then the pain slowly started to return. Pain level is currently at 8 out of 10 in intensity, sharp, shooting from the base of her neck up her head and down the upper extremities bilaterally. Pain is provoked by extension. Pain is alleviated with medications, injections, physical therapy currently, chiropractic treatments in the past, use of a cane, brace and walker for ambulation, massage therapy integrated with physical therapy and rest. Interventional pain procedures completed include C2-C3 with 3rd O.N. block #1 Patient is currently on Mobic from Dr House Patient denies any side effects of the medication(s), denies excessive drowsiness or sleepiness, denies suicidal ideation and reports that the current pain medication is helping to control the pain and improve activities of daily living. Patient denies any motor or sensory deficits. Patient denies any fever or night sweats, denies any change in the bowel movements or urination. Physical Examination: -Constitutional: Cooperative. Not in acute distress . -HEENT: Neck is supple. No lymphadenopathy. No thyromegaly. Normal thyroid size. Eyes: No ptosis , no icterus, no photophobia. ENT: No auditory deficits. Normal oropharynx. No Thrush. - Respiratory: Chest clear to auscultations bilaterally. No wheezing. No rhonchi. - Cardiovascular: Regular rate and rhythm. S1 / S2 , no S3 , no S4. - Gastrointestinal: Abdomen soft no tenderness. Bowel sounds positive in all four quadrants. No organomegaly. - Genitourinary: Deferred. - Neurologic: Cranial nerve II to XII intact. No focal neurological deficits. - Psychatric: Alert & oriented x 3. Matching mood & appropriate affect. Judgment and insight intact. - Lymphatic: No Lymphadenopathy. - Musculoskeletal: Cervical spine: Muscle bulk/ tone/ strength in the bilateral upper extremities normal. Facet loading test cervical area positive over C2-C3 with jump reflex Lumbar spine: Motor bulk/ tone/ strength lower extremities , thigh and legs : 5/5 Deep tendon reflexes : Normal Knee Jerk. Normal Ankle Jerk . Vertebral body tenderness to palpation over Lumbar Facet Loading Test positive Straight Leg Raise: positive at 30 degrees right side/ left side Gaenslen's Test positive Sacral spine : Severe tenderness over the Sacroiliac joint: right side / left side Range of motion: Flexion of the lumbar spine <60 degrees Range of motion: Extension of the lumbar spine <20 degrees Gaenslen's Test positive Jose test: positive right side / left side Assessment and plan: Chronic neck pain secondary to apical degenerative disc disease , spondylosis with facet arthropathy without myelopathy Recommendation of nerve block of the C2-C3 and third occipital nerve. Patient may need a series of injections, up to 3 within a six-month period, to obtain optimal pain relief. Risks, benefits of procedure discussed and patient verbalized understanding. Denies medical history of diabetes. Admits to Eliquis use. Needs medical clearance from her physician to stop Eliquis 3 days prior to procedure. Protocol for discontinuation/ continuation of medications katie procedure discussed. All patient questions answered MAPS reviewed and it was appropriate. I have spent 31 minutes on patient care today. Dr Cruz was available by phone for the evaluation of this patient. The time was used to review the medical records including relevant urine studies and Prescription history (MAPs), review of the available imaging, evaluation and examination of the armani ent, coordination of care with the medical staff and if applicable referring physicians, as well as creation of the medical record Objective - Vital Signs Vital signs: Vital Signs Temp 98.4 F 02/08/22 12:28 Pulse 76 02/08/22 12:28 Resp 18 02/08/22 12:28 BP 134/65 02/08/22 12:28 Pulse Ox 96 02/08/22 12:28 PQRS Measure Charge Sheet Mode of Arrival: Ambulatory, Walker - Pain Location Neck Non-Pharmacological Interventions: Chiropractic Treatment, Home Exercise, Inactivity, Massage, Physical Therapy, Position/Reposition, Stretching Pharmacological Interventions: Block, Scheduled Medication PQRS Narrative: Smoking Status Current every day smoker Blood Pressure 134/65 Pain Intensity [Neck] 8 Scale Used Numeric (1 - 10) Hx Alcohol Use (MH) No Home Medications: Ambulatory Orders Metoprolol Tartrate 25 mg PO BID 07/03/20 hydroCHLOROthiazide 25 mg PO DAILY 07/03/20 Apixaban [Eliquis] 5 mg PO BID #60 tab 07/07/20 amLODIPine [Norvasc] 5 mg PO DAILY #60 tab 07/07/20 Ezetimibe [Zetia] 10 mg PO DAILY 05/25/21 Omeprazole 40 mg PO AC-BID 05/25/21 Ondansetron [Zofran] 4 - 8 mg PO BID PRN 05/25/21 DULoxetine HCL [Cymbalta] 60 mg PO DAILY 06/11/21 Dicyclomine [Bentyl] 10 mg PO TID PRN 06/11/21 Donepezil [Aricept] 5 mg PO HS 06/11/21 Albuterol Inhaler [Ventolin Hfa Inhaler] 2 puff INHALATION RT-QID #8 gm 08/30/21 Budesonide/Formoterol Fumarate [Symbicort 160-4.5 Mcg Inhaler] 2 puff INHALATION BID #10.2 gm 08/30/21 Doxycycline [Vibramycin] 100 mg PO BID 8 Days #16 cap 08/30/21 QUEtiapine [SEROquel] 50 mg PO HS #0 08/30/21 Meloxicam [Mobic] 15 mg PO DAILY 01/19/22
== END ==
LOC: PNWHC3 12:02
PROVIDERS: ATTEND Specialist
DX: M50.30 Other cervical disc degeneration, unspecified cervical region (principal); M47.812 Spondylosis without myelopathy or radiculopathy, cervical region; G89.29 Other chronic pain; F17.200 Nicotine dependence, unspecified, uncomplicated; Z88.1 Allergy status to other antibiotic agents; Z91.041 Radiographic dye allergy status; Z91.040 Latex allergy status; Z88.0 Allergy status to penicillin; Z88.2 Allergy status to sulfonamides
CPT/HCPCS: 99211

== ENCOUNTER → 2022-03-08 | Outpatient (CLI) | payer MEDICARE, OTHER ==
--- NOTE | 2022-03-08 23:53 | CTL ---
EXAMINATION TYPE: CT Low Dose Lung DATE OF EXAM ORDERED: 03/08/2022 HISTORY: Personal history of tobacco use. 56 pack year smoking history. Lung cancer screening CT DLP: 106.[address] CTDI: 3.40 mGy Automated exposure control for dose reduction was used. SCREENING VISIT: Initial COMPARISON: CT chest 08/07/2019 TECHNIQUE: Low dose computed tomography scan was performed through the chest at 1 mm thick sections a nd reconstructed images in multiple planes at 1 mm and [address] DIAGNOSTIC QUALITY: Satisfactory FINDINGS: Scattered small subsolid pulmonary nodules largest measuring 5 mm in the left upper lobe (axial image 62/264). Scattered calcified granulomas. Central airways are normal course and caliber. Mild upper lobe predom inant centrilobular emphysematous changes. No focal consolidation, pleural effusion, or pneumothorax. Cardiac size appears within normal limits. No pericardial effusions. Mild coronary artery calcificati ons. Mild scattered arthroscopic calcifications of the thoracic aorta. Thoracic aorta and main pulmon lesley arteries are of normal caliber. No mediastinal or axillary lymphadenopathy. Limited evaluation of the upper abdomen appears unremarkable. Osseous structures appear intact. Mild multilevel degenerative changes of the thoracic spine. IMPRESSION: 1. Scattered small subsolid pulmonary nodules the largest measuring 5 mm in the left upper lobe. CT LUNG RAD AND CT CHEST RECOMMENDATION: Category 2, benign appearance. Recommend continued annual sc reening with low-dose CT chest. S Modifier (other clinically significant findings): None
== END | disposition home or self-care (01) ==
LOC: RADCTMAIN 13:50
PROVIDERS: ATTEND Internal Medicine Sleep Medicine
DX: Z12.2 Encounter for screening for malignant neoplasm of respiratory organs (principal); R91.8 Other nonspecific abnormal finding of lung field; Z87.891 Personal history of nicotine dependence
CPT/HCPCS: 71271

== ENCOUNTER 2022-04-04 12:51 | Day surgery (SDC) | payer MEDICARE, OTHER ==
[2022-04-03 09:09] VITALS: BMI 29.9
[2022-04-04 13:14] VITALS: RESP 16; TEMP 97
[2022-04-04] MEDS ORDERED: DEXAMETHASONE SOD PHOSPHATE 10 MG/ML 1 ML VIAL ONE (13:20)
[2022-04-04] MEDS ORDERED: ROPIVACAINE 5MG/ML 20ML VIAL ONE (13:20)
--- NOTE | 2022-04-04 13:30 | P.PCN ---
Date of Procedure: 04/04/22 Description of Procedure: Procedure: Cervical Medial Branch Block at C2-C3, third occipital nerve Indications: Neck Pain Diagnosis: Cervical spondylosis without myelopathy Imaging: Fluoroscopy was used, images where saved to the medical record Anesthesia: None Description of procedure: The patient was seen and examined in the PO. Procedure risks and benefits were fully reviewed with patient and to the guardian which is her son over the phone, Elpidio Gibbs who gave consent as her Guardian. The patient understands this is a diagnostic as well as a therapeutic procedure and that the goal of the procedure is to inject medication on to the medial branch or small nerves that go into the facet joints. In this way, we can hopefully identify which of these joints, if any, may be contributing to their pain. Informed consent for the procedure was obtained. The patient was taken into the office fluoroscopy procedure room and placed supine on the table. Vital signs were closely monitored during the procedure. The skin over the area was prepped with chlorhexidine and draped in usual sterile manner. Sterile technique was observed throughout procedure. Under fluoroscopic guidance, the target injection areas of the the above noted level's medial branches were visualized in lateral views. Using biplanar fluoroscopy, a 25 gauge 3.5 inch needle was inserted into proper position where the tip of the needle was located at the midpoint of the quadrangle at each level of C2 and C3 as well as the junction between C2 and C3 and third occipital nerve. After negative aspiration for blood and CSF, 0.5cc of 0.5 % Ropivacaine along with a total of 10 mg of dexamethasone was injected into the targeted areas. The needles were withdrawn intact. No complications were noted during the procedure. The patient tolerated procedure well. The patient was placed in supine position and transferred to the recovery area for observation and remained stable until discharged home. Home discharge instructions given to the patient by the staff. The patient was reexamined prior to discharge. Follow up/plan: The patient will schedule a follow up in the clinic to discuss results and potential RFA.
[2022-04-04 13:46] VITALS: BP 116/67; PULSE 72
--- NOTE | 2022-04-04 14:00 | FL ---
EXAMINATION TYPE: FL guided pain mgmt statistic DATE OF EXAM: 04/04/2022 CLINICAL HISTORY: Neck pain. TECHNIQUE: Fluoroscopy. COMPARISON: None. FINDINGS: Fluoroscopic guidance was provided during pain relief procedure performed by Dr. Johnson . A total of 6 seconds of fluoroscopic time was utilized during the procedure and 6 spot images are a cquired. Images acquired shows needle localization at several spots at C2-C3 level. IMPRESSION: As Above.
== END 2022-04-04 14:03 | disposition home or self-care (01) ==
LOC: ORPAIN 12:51
PROVIDERS: ATTEND Hospitalist
DX: M47.812 Spondylosis without myelopathy or radiculopathy, cervical region (principal)
CPT/HCPCS: 64405; 64490; J1100; J2795

== ENCOUNTER → 2023-08-23 | Outpatient (CLI) | payer OTHER ==
--- NOTE | 2023-08-23 15:03 | CTL ---
EXAMINATION TYPE: CT Low Dose Lung DATE OF EXAM ORDERED: 08/23/2023 COMPARISON: 03/08/2022 HISTORY: . Low Dose CT Lung Screening CT DLP: 82.[address] CTDI: 2.3 mGy IV CONTRAST USED: None. SCREENING VISIT: Second COMPARISON: None. TECHNIQUE: Low dose computed tomography scan was performed through the chest at 1 millimeter thick se ctions and reconstructed images in the coronal plane at [address] DIAGNOSTIC QUALITY: Satisfactory FINDINGS: LUNG NODULES: There are scattered upper lobe calcified and noncalcified sub-5 mm nodules. New 6 mm no dular density right lower lobe image 146 sequence 4. Lower lobe bronchial wall thickening. LUNGS: COPD: Severity: Mild Fibrosis: Severity:None Lymph nodes: None Other findings: None RIGHT PLEURAL SPACE: Effusion: None Calcification: None Thickening: None Pneumothorax: None LEFT PLEURAL SPACE: Effusion: None Calcification: None Thickening: None Pneumothorax: None HEART: Heart Size: Mildly enlarged Coronary calcification: Mild Pericardial effusion: None OTHER FINDINGS: Upper abdomen: No significant abnormality Bony thorax: Degenerative changes Supraclavicular region: No significant abnormalityOther: No significant abnormalityI IMPRESSION: 1. 6 mm pulmonary nodule right lower lobe. Six-month follow-up recommended. Otherwise stable calcifie d and noncalcified sub-5 mm nodules seen. FOLLOW UP CT CHEST RECOMMENDATION: Six-month follow-up for low dose CT recommended. CT LUNG RAD: LUNG RAD CATEGORY 3 probably benign
== END | disposition home or self-care (01) ==
LOC: RADCTMAIN 13:25
PROVIDERS: ATTEND Emergency Medicine
DX: Z12.2 Encounter for screening for malignant neoplasm of respiratory organs (principal); R91.8 Other nonspecific abnormal finding of lung field; Z87.891 Personal history of nicotine dependence
CPT/HCPCS: 71271

== ENCOUNTER → 2023-10-26 | Outpatient (CLI) | payer OTHER ==
--- NOTE | 2023-10-26 12:20 | FL ---
EXAMINATION TYPE: FL barium swallow DATE OF EXAM: 10/26/2023 10:42 AM COMPARISON: 08/23/2023. CLINICAL INDICATION:Female, 72 years old with history of R13.10 Dysphagia; PHH, TECHNIQUE: The procedure was explained and patient history elicited. All patient questions were ans wered prior to start of procedure. Multiple spot fluoroscopic images of the esophagus were obtained a fter the oral ingestion of effervescent crystals and liquid barium as the contrast agent. Fluoroscopic time: 33 sec Fluoroscopic images:0 Radiographs taken: 44 DAP: 728 mGym2 FINDINGS: Free flow transit of barium through the esophagus. The esophagus demonstrates normal primary and seco ndary peristalsis. The esophageal mucosa is smooth without evidence of focal stricture, ulceration, or abnormal outpouching. No gastroesophageal reflux disease was identified IMPRESSION: 1. Normal esophagram. No evidence for reflux or liquid barium getting stuck in esophagus.
== END | disposition home or self-care (01) ==
LOC: RADUSWWP 08:43
PROVIDERS: ATTEND Emergency Medicine
DX: R13.10 Dysphagia, unspecified (principal)
CPT/HCPCS: 74220

== ENCOUNTER → 2023-12-12 | Outpatient (CLI) | payer OTHER ==
--- NOTE | 2023-12-12 14:15 | US ---
EXAMINATION TYPE: US thyroid st tissue head/neck DATE OF EXAM: 12/12/2023 COMPARISON: NONE CLINICAL INDICATION: Female, 72 years old with history of E05.90 THYROTOXICOSIS, UNSP WITHOUT THYROTO XIC CRISIS OR STO; GLAND SIZE: Right Lobe: 4.1 x 1.6 x 1.4 cm Overall Parenchyma: Slightly heterogeneous Left Lobe: 3.8 x 1.1 x 1.0 cm Overall Parenchyma: Slightly heterogeneous Isthmus Thickness: 0.5 cm NODULES RIGHT: # of nodules measured on right: . Additional less than 5 mm nodules seen not fully measured. 1. 0.9 X 0.7 x 0.5 cm, upper mid, solid or almost completely solid, hypoechoic nodule, which is wid er than tall, with smooth margins, without echogenic foci. Prior size: no prior LEFT: # of nodules measured on left: 1 less than 5 mm nodule seen, not fully measured. ISTHMUS: # of nodules measured in the isthmus: 1 1. 0.6 X 0.5 x 0.4 cm solid or almost completely solid, hypoechoic nodule, which is wider than tall , with smooth margins, without echogenic foci. Prior size: No prior Bilateral neck scanned, no evidence of lymphadenopathy. IMPRESSION: Subcentimeter nodules redemonstrated which are nonspecific.
--- NOTE | 2023-12-12 18:52 | BD ---
EXAMINATION TYPE: Axial Bone Density DATE OF EXAM: 12/12/2023 CLINICAL HISTORY: 72 years old Female. ICD-10 CODE: M81.0 AGE-RELATED OSTEOPOROSIS W/O CURRENT PATHO LOGICAL FRAC Height: 5 ft 5 in Weight: 182 FRAX RISK QUESTIONS: Alcohol (3 or more units per day): no Family History (Parent hip fracture): no Glucocorticoids (More than 3mos): no (Ex: prednisone, prednisolone, methylprednisolone, dexamethasone, and hydrocortisone). History of Fracture in Adulthood: no Secondary Osteoporosis: 1. Type 1 Diabetes: no 2. Hyperthyroidism: no 3. Menopause before 45: no 4. Malnutrition: no 5. Chronic liver disease: no Rheumatoid Arthritis: no Current Tobacco Use: yes RISK FACTORS HISTORY OF: Surgery to Spine/Hip(right/left)/Wrist (right/left): no MEDICATIONS: Thyroid Medications: none Osteoporosis Medications: none EXAM MEASUREMENTS: Bone mineral densitometry was performed using the [employer] System. Bone mineral density as measured about the Lumbar spine is: ----- L1-L4(G/cm2): 0.908 T Score Values are as follows: ----- L1: -2.9 ----- L2: -2.9 ----- L3: -2.0 ----- L4: -1.7 ----- L1-L4: -2.3 Z Score Values are as follows: ----- L1: -1.7 ----- L2: -1.7 ----- L3: -0.9 ----- L4: -0.5 ----- L1-L4: -1.1 baseline Bone mineral density about the R hip (g/cm2): 0.643 Bone mineral density about the L hip (g/cm2): 0.727 T Score values are as follows: -----R Neck: -2.8 -----L Neck: -2.2 -----R Total: -1.7 -----L Total: -1.4 Z Score values are as follows: -----R Neck: -1.4 -----L Neck: -0.8 -----R Total: -0.5 -----L Total: -0.2 baseline FRAX%s: The graph provided illustrates a 20.5 % chance for a major osteoporotic fx and a 9.8 % chance for the hips probability for fx in 10 years time. IMPRESSION: Osteoporosis (T Score less than -2.5). There is increased fracture risk and therapy is usually indicated based on age. Re-Screen 1-2 years. NOTE: T-SCORE=SD OF THE YOUNG ADULT MEAN.
== END | disposition home or self-care (01) ==
LOC: RADUSWWP 13:19
PROVIDERS: ATTEND Emergency Medicine
DX: Z13.820 Encounter for screening for osteoporosis (principal); E04.1 Nontoxic single thyroid nodule; M81.8 Other osteoporosis without current pathological fracture
CPT/HCPCS: 76536; 77080

== ENCOUNTER → 2024-02-26 | Outpatient (CLI) | payer OTHER ==
--- NOTE | 2024-02-28 22:34 | CTL ---
EXAMINATION TYPE: CT Low Dose Lung DATE OF EXAM ORDERED: 02/26/2024 HISTORY: . Lung cancer screening CT DLP: 120.[address] CTDI: 3.5 mGy Automated exposure control for dose reduction was used. SCREENING VISIT: COMPARISON: TECHNIQUE: Low dose computed tomography scan was performed through the chest at 1 mm thick sections a nd reconstructed images in the coronal plane at [address] DIAGNOSTIC QUALITY: Satisfactory FINDINGS: LUNG NODULES: None. 1. There is a 0.6 cm low-density nodule in the anterior lateral right apex. Series 4 image 38. This w as present previously. 2. 0.2 cm tiny peripheral nodule lateral right upper lung field. Series 4 image 47 present previously . 3. 0.4 cm peripheral left lung nodule, image 66 series 4. This was present previously. 4. Couple of benign stable calcifications posterior left upper lung field. LUNGS: COPD: Severity: None Fibrosis: Severity: None Lymph nodes: Non- Other findings: Pneumatocele mid right upper lung field RIGHT PLEURAL SPACE: Effusion: None Calcification: None Thickening: None Pneumothorax: None LEFT PLEURAL SPACE: Effusion: None Calcification: None Thickening: None Pneumothorax: None HEART: Heart Size: Normal Coronary calcification: None Pericardial effusion: None OTHER FINDINGS: Upper abdomen: Normal Bony thorax: Normal Supraclavicular region: Normal Other: Ascending thoracic aorta at the level the main pulmonary artery measures 3.5 cm. The main pul monary artery at the bifurcation measures 2.9 cm. IMPRESSION: 1. Benign-appearing tiny nodules stable from comparison FOLLOW UP CT CHEST RECOMMENDATION: Follow-up low-dose CT chest one year CT LUNG RAD: Lung-Rad 2 Benign Appearance or Behavior
== END | disposition home or self-care (01) ==
LOC: RADCTMAIN 10:39
PROVIDERS: ATTEND Internal Medicine Hospice and Palliative Medicine
DX: Z12.2 Encounter for screening for malignant neoplasm of respiratory organs (principal); R91.8 Other nonspecific abnormal finding of lung field; Z87.891 Personal history of nicotine dependence
CPT/HCPCS: 71271

== ENCOUNTER → 2024-08-22 | Outpatient (CLI) | payer OTHER ==
--- NOTE | 2024-08-22 17:20 | FL ---
EXAMINATION TYPE: FL barium swallow w video DATE OF EXAM: 08/22/2024 CLINICAL HISTORY: 73-year-old female R1 3.10 Dysphagia. Reports solids occasionally going down the wr herbert way. TECHNIQUE: Deglutition study is performed utilizing thin liquid barium, barium thick pudding, and ba rium coated cracker. Total fluoroscopy time 57 seconds. Total images: None. Real-time fluoroscopy support was provided to speech pathology. Total DAP: 10 mGycm2. COMPARISON: None. FINDINGS: Swallow initiation was mildly delayed with occasional bolus free spilling to the level of the vallecu la. The patient is edentulous delaying solid bolus formation. There is transient penetration with thin liquids. No aspiration seen with any consistency. No significant residuals. IMPRESSION: Transient penetration with thin liquids. No aspiration seen. Please refer to speech therapist notes for further details if necessary. [facility], , 08/22/2024 5:17 PM
== END | disposition home or self-care (01) ==
LOC: RADFLMAIN 11:41
PROVIDERS: ATTEND Internal Medicine Hospice and Palliative Medicine
DX: R13.10 Dysphagia, unspecified (principal)
CPT/HCPCS: 74230

== ENCOUNTER 2024-09-20 15:48 | Inpatient (IN) | payer OTHER ==
--- NOTE | 2024-09-20 16:14 | ED ---
General Adult HPI - General Chief complaint: Shortness of Breath Stated complaint: SOB Time Seen by Provider: 09/20/24 15:52 Source: patient, EMS Mode of arrival: EMS Limitations: no limitations - History of Present Illness Initial comments: Dictation was produced using [employer] dictation software. please excuse any grammatical, word or spelling errors. Chief Complaint: 73-year-old female presents to the emergency department cough shortness of breath chest pain History of Present Illness: Patient 73-year-old female presents to the emergency department for over 1 week of cough, shortness of breath and chest pain. Patient is a [employer] participant. She was seen by home health care nurse who contacted [facility] physician. It was decided that patient be transferred to the emergency department. EMS was contacted for transfer states she was hypoxic to the mid 80s on arrival she was placed on 5 L nasal cannula. Patient states she has a productive cough with squeezing chest pain and shortness of breath. EMS did report that she was cyanotic initially. Reports constitutional symptoms The ROS documented in this emergency department record has been reviewed and confirmed by me. Those systems with pertinent positive or negative responses have been documented in the HPI. All other systems are other negative and/or noncontributory. - Related Data Home Medications Medication Instructions Recorded Confirmed Metoprolol Tartrate 25 mg PO BID 07/03/20 09/20/24 Omeprazole 40 mg PO AC-BID 05/25/21 09/20/24 Dicyclomine [Bentyl] 10 mg PO TID 06/11/21 09/20/24 Donepezil [Aricept] 5 mg PO HS 06/11/21 09/20/24 Acetaminophen Tab [Tylenol] 650 mg PO Q6H PRN 09/20/24 09/20/24 Albuterol Inhaler [Ventolin Hfa 2 puff INHALATION RT-Q4H PRN 09/20/24 09/20/24 Inhaler] Albuterol Nebulized [Ventolin 2.5 mg INHALATION RT-QID PRN 09/20/24 09/20/24 Nebulized] Ascorbic Acid [Vitamin C] 1,000 mg PO BID 09/20/24 09/20/24 Azithromycin [Zithromax] See Taper PO DIRECTED 09/20/24 09/20/24 Biofreeze 10% Cream 1 applic TOPICAL TID PRN 09/20/24 09/20/24 Brexpiprazole [Rexulti] 1 mg PO DAILY 09/20/24 09/20/24 Budesonide/Formoterol Fumarate 2 puff INHALATION RT-BID 09/20/24 09/20/24 [Symbicort 160-4.5 Mcg Inhaler] Carboxymethylcellulos/Glycerin 1 drop BOTH EYES QID 09/20/24 09/20/24 [Refresh Relieva 0.5-0.9% Drop] Ergocalciferol (Vitamin D2) 1,250 mcg PO MO 09/20/24 09/20/24 [Drisdol (50,000 Iu)] Ibuprofen [Motrin] 600 mg PO QID PRN 09/20/24 09/20/24 Levothyroxine Sodium [Synthroid] 50 mcg PO DAILY 09/20/24 09/20/24 Loperamide HCl [Imodium A-D] 2 - 4 mg PO QID PRN 09/20/24 09/20/24 Meclizine HCl 50 mg PO BID PRN MDD 100mg 09/20/24 09/20/24 Meloxicam [Mobic] 7.5 mg PO DAILY 09/20/24 09/20/24 Multivitamins, Thera [Multivitamin 1 tab PO DAILY 09/20/24 09/20/24 (formulary)] Nicotine Polacrilex [Nicorette] 4 mg BC 5XD PRN 09/20/24 09/20/24 Nystatin 100,000 Unit/gm Powd 1 applic TOPICAL TID 09/20/24 09/20/24 [Mycostatin Powder] [place]-3 Acid Ethyl Esters [Lovaza] 2 gm PO BID 09/20/24 09/20/24 QUEtiapine [SEROquel] 200 mg PO HS 09/20/24 09/20/24 Rosuvastatin [Crestor] 10 mg PO HS 09/20/24 09/20/24 Sertraline [Zoloft] 100 mg PO HS 09/20/24 09/20/24 Spironolactone [Aldactone] 25 mg PO DAILY 09/20/24 09/20/24 Zinc Gluconate [Zinc] 50 mg PO DAILY 09/20/24 09/20/24 buPROPion XL [Wellbutrin XL] 300 mg PO DAILY 09/20/24 09/20/24 diphenhydrAMINE [Benadryl] 50 mg PO HS 09/20/24 09/20/24 guaiFENesin SYRUP 100MG/5ML 400 mg PO DIRECTED PRN 09/20/24 09/20/24 [Robitussin] polyethylene glycoL 3350 [Miralax] 17 gm PO DAILY 09/20/24 09/20/24 predniSONE [Deltasone] 20 mg PO DIRECTED 09/20/24 09/20/24 Previous Rx's Medication Instructions Recorded Apixaban [Eliquis] 5 mg PO BID #60 tab 07/07/20 Allergies Allergy/AdvReac Type Severity Reaction Status Date / Time atorvastatin [From Lipitor] Allergy Unknown Verified 09/20/24 17:06 cephalexin monohydrate Allergy Rash/Hives Verified 09/20/24 17:06 [From Keflex] ciprofloxacin [From Cipro] Allergy Swelling Verified 09/20/24 17:06 Iodinated Contrast Media Allergy Dyspnea Verified 09/20/24 17:06 latex Allergy Rash/Hives Verified 09/20/24 17:06 oxytetracycline Allergy Rash/Hives Verified 09/20/24 17:06 [From Terramycin] Penicillins Allergy Rash/Hives Verified 09/20/24 17:06 Sulfa (Sulfonamide Allergy Rash/Hives Verified 09/20/24 17:06 Antibiotics) Review of Systems ROS Statement: Those systems with pertinent positive or pertinent negative responses have been documented in the HPI. ROS Other: All systems not noted in ROS Statement are negative. 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, BILATERAL TINNITIS, PAST L FOOT FRACTURES THAT HEALED INCORRECTLY, UTIs Last Myocardial Infarction Date:: vanessa History of Any Multi-Drug Resistant Organisms: None Reported Past Surgical History: Bladder Surgery, Cholecystectomy, Heart Catheterization, Hysterectomy, Orthopedic Surgery, Tonsillectomy, Tubal Ligation Additional Past Surgical History / Comment(s): 2013 CARDIAC CATH TX MEDICALLY, BENIGN OVARIAN TUMOR REMOVAL, BENIGN PERINEAL TUMOR REMOVAL, BILATERAL VOCAL CORDS STRIPPED D/T TUMORS, FIRST 2 FINGER r HAND PARTIAL AMP D/T INJURY, 2 BLADDER SUSPENSIONS, COLONOSCOPY/HEMORRHOIDECTOMY. PAIN CLINIC PROCEDURES Past Anesthesia/Blood Transfusion Reactions: Previous Problems w/ Anesthesia Additional Past Anesthesia/Blood Transfusion Reaction / Comment(s): difficulty waking in past. claustrophobia Past Psychological History: Anxiety, Depression Smoking Status: Current every day smoker Past Alcohol Use History: None Reported Past Drug Use History: None Reported - Past Family History Mother Family Medical History: CVA/TIA Additional Family Medical History / Comment(s): Mother at age 73 from a brain stem stroke. Brother(s) Family Medical History: Dementia Additional Family Medical History / Comment(s): Patient has 2 full brothers with no major medical problems. Patient does not have any sisters. Patient has 3 sons with no major medical problems. Son(s) Family Medical History: Cancer Additional Family Medical History / Comment(s): ONE SON IS OBESE. THE OTHER SON HAD LYMPHOMA Father Family Medical History: Congestive Heart Failure (CHF), Myocardial Infarction (MA) Additional Family Medical History / Comment(s): Father at age 76 from a massive heart attack. General Exam - General Exam Comments Initial Comments: PHYSICAL EXAM: General Impression: Alert and oriented x3, not in acute distress HEENT: Normocephalic atraumatic, extra-ocular movements intact, pupils equal and reactive to light bilaterally, mucous membranes moist. Cardiovascular: Heart regular rate and rhythm Chest: Able to complete full sentences, no retractions, no tachypnea posterior lung field rhonchi Abdomen: abdomen soft, non-tender, non-distended, no organomegaly Musculoskeletal: Pulses present and equal in all extremities, no peripheral edema Motor: no focal deficits noted Neurological: CN II-XII grossly intact, no focal motor or sensory deficits noted Skin: Intact with no visualized rashes Psych: Normal affect and mood Limitations: no limitations Course Vital Signs 09/20/24 09/20/24 09/20/24 15:52 15:55 16:17 Temperature 97.1 F L Pulse Rate 42 L 123 H Respiratory 24 22 20 Rate Blood Pressure 118/89 130/83 O2 Sat by Pulse 95 98 Oximetry 09/20/24 09/20/24 09/20/24 17:00 17:54 17:55 Temperature Pulse Rate 111 H 124 H 121 H Respiratory 20 22 21 Rate Blood Pressure 142/81 118/82 O2 Sat by Pulse 99 95 Oximetry 09/20/24 18:00 Temperature Pulse Rate 134 H Respiratory 20 Rate Blood Pressure O2 Sat by Pulse Oximetry EKG Findings - EKG Comments: EKG Findings:: My EKG interpretation: Ventricular rate 70, A-fib, QRS 74, QTc 395. No QTC prolongation, no ST or T-wave changes noted.Overall, this EKG is unremarkable Medical Decision Making - Medical Decision Making Was pt. sent in by a medical professional or institution (, PA, PHYSICIAN RELATIONS MANAGER, urgent care, hospital, or half-way...) When possible be specific @ -No Did you speak to anyone other than the patient for history (EMS, parent, family, police, friend...)? What history was obtained from this source @ -No Did you review nursing and triage notes (agree or disagree)? Why? @ -I reviewed and agree with nursing and triage notes Were old charts reviewed (outside hosp., previous admission, EMS record, old EKG, old radiological studies, urgent care reports/EKG's, half-way records)? Report findings @ -No old charts were reviewed Differential Diagnosis (chest pain, altered mental status, abdominal pain women, abdominal pain men, vaginal bleeding, musculoskeletal, weakness, fever, dyspnea, syncope, headache, dizziness, GI bleed, back pain, seizure, CVA, palpatations, mental health)? @ -Differential Dyspnea: Coronary syndrome, arrhythmia, tamponade, asthma, COPD, pulmonary embolism, p neumonia, pneumothorax, pulmonary effusion, anaphylaxis, diabetic ketoacidosis, flailed chest, pulmonary contusion, diaphragmatic rupture, anemia, neuromuscular, this is not meant to be an all-inclusive list. EKG interpreted by me (3pts min.). @ -Above X-rays interpreted by me (1pt min.). @ -Chest x-ray shows heart failure CT interpreted by me (1pt min.). @ -None done U/S interpreted by me (1pt. min.). @ -None done What testing was considered but not performed or refused? (CT, X-rays, U/S, labs)? Why? @ -None What meds were considered but not given or refused? Why? @ -None Was smoking cessation discussed for >3mins.? @ -No Were there social determinants of health that impacted care today? How? (Homelessness, low income, unemployed, alcoholism, drug addiction, transportation, low edu. Level, literacy, decrease access to med. care, skilled nursing, rehab)? @ -No Was there de-escalation of care discussed even if they declined (Discuss DNR or withdrawal of care, Hospice)? DNR status @ -No What co-morbidities impacted this encounter? (DM, HTN, Smoking, COPD, CAD, Cancer, CVA, ARF, Chemo, Hep., AIDS, mental health diagnosis, sleep apnea, morbid obesity)? @ -COPD Was patient admitted / discharged? Hospital course, mention meds given and route, prescriptions, significant lab abnormalities, going to OR and other pertinent info. @ -73-year-old female with multiple comorbidities presents to the emergency department for respiratory symptoms. She does complain of infectious type symptoms with a history of COPD. She has history of A-fib does appear to be in some mild RVR. Evaluation obtained. Mild leukocytosis. Elevated nitrated peptide concerning for heart failure. X-ray shows heart failure. Patient will be treated with Lasix, antibiotics and steroids. Will be admitted consultation cardiology pulmonology Did you discuss the management of the patient with other professionals (professionals i.e. , PA, PHYSICIAN RELATIONS MANAGER, lab, RT, psych nurse, social services technician, media reconciliation specialist, teacher, school services officer, manager case management)? Give summary @ -Case discussed with hospitalist for admission Was critical care preformed (if so, how long)? @ -No Undiagnosed new problem with uncertain prognosis? @ -No Drug Therapy requiring intensive monitoring for toxicity (Heparin, Nitro, Insulin, Cardizem)? @ -No Were any procedures done? @ -No Diagnosis/symptom? Acute, or Chronic, or Acute on Chronic? Uncomplicated (without systemic symptoms) or Complicated (systemic symptoms)? @ -Hypoxic respiratory failure Side effects of treatment? @ -No Exacerbation, Progression, or Severe Exacerbation? @ -No Poses a threat to life or bodily function? How? (Chest pain, USA, MA, pneumonia, PE, COPD, DKA, ARF, appy, cholecystitis, CVA, Diverticulitis, Homicidal, Suicidal, threat to staff... and all critical care pts) @ -yes - Lab Data Result diagrams: 09/20/24 16:06 09/20/24 16:06 Lab Results 09/20/24 09/20/24 09/20/24 Range/Units 16:06 16:06 16:06 WBC 13.0 H (3.8-10.6) k/uL RBC 4.10 (3.80-5.40) m/uL Hgb 11.0 L (11.4-16.0) gm/dL Hct 35.9 (34.0-46.0) % MCV 87.6 (80.0-100.0) fL MCH 26.9 (25.0-35.0) pg MCHC 30.7 L (31.0-37.0) g/dL RDW 14.7 (11.5-15.5) % Plt Count 199 (150-450) k/uL MPV 8.8 Neutrophils % 80 % Lymphocytes % 7 % Monocytes % 2 % Eosinophils % 11 % Basophils % 0 % Neutrophils # 10.3 H (1.3-7.7) k/uL Lymphocytes # 0.9 L (1.0-4.8) k/uL Monocytes # 0.3 (0-1.0) k/uL Eosinophils # 1.4 H (0-0.7) k/uL Basophils # 0.0 (0-0.2) k/uL Hypochromasia Moderate PT 11.7 (10.0-12.5) sec INR 1.1 (<1.2) APTT 22.9 (22.0-30.0) sec Sodium 144 (137-145) mmol/L Potassium 3.8 (3.5-5.1) mmol/L Chloride 107 (98-107) mmol/L Carbon Dioxide 29 (22-30) mmol/L Anion Gap 8 mmol/L BUN 20 H (7-17) mg/dL Creatinine 0.93 (0.52-1.04) mg/dL Est GFR (CKD-EPI)AfAm 71 (>60 ml/min/1.73 sqM) Est GFR (CKD-EPI)NonAf 62 (>60 ml/min/1.73 sqM) Glucose 101 H (74-99) mg/dL Plasma Lactic Acid Vinny (0.7-2.0) mmol/L Calcium 9.1 (8.4-10.2) mg/dL Magnesium 1.7 (1.6-2.3) mg/dL Total Bilirubin 0.5 (0.2-1.3) mg/dL AST 21 (14-36) U/L ALT 14 (4-34) U/L Alkaline Phosphatase 128 H (38-126) U/L Troponin I (0.000-0.034) ng/mL NT-Pro-B Natriuret Pep 4170 pg/mL Total Protein 6.4 (6.3-8.2) g/dL Albumin 3.6 (3.5-5.0) g/dL 09/20/24 09/20/24 Range/Units 16:06 16:06 WBC (3.8-10.6) k/uL RBC (3.80-5.40) m/uL Hgb (11.4-16.0) gm/dL Hct (34.0-46.0) % MCV (80.0-100.0) fL MCH (25.0-35.0) pg MCHC (31.0-37.0) g/dL RDW (11.5-15.5) % Plt Count (150-450) k/uL MPV Neutrophils % % Lymphocytes % % Monocytes % % Eosinophils % % Basophils % % Neutrophils # (1.3-7.7) k/uL Lymphocytes # (1.0-4.8) k/uL Monocytes # (0-1.0) k/uL Eosinophils # (0-0.7) k/uL Basophils # (0-0.2) k/uL Hypochromasia PT (10.0-12.5) sec INR (<1.2) APTT (22.0-30.0) sec Sodium (137-145) mmol/L Potassium (3.5-5.1) mmol/L Chloride (98-107) mmol/L Carbon Dioxide (22-30) mmol/L Anion Gap mmol/L BUN (7-17) mg/dL Creatinine (0.52-1.04) mg/dL Est GFR (CKD-EPI)AfAm (>60 ml/min/1.73 sqM) Est GFR (CKD-EPI)NonAf (>60 ml/min/1.73 sqM) Glucose (74-99) mg/dL Plasma Lactic Acid Vinny 1.7 (0.7-2.0) mmol/L Calcium (8.4-10.2) mg/dL Magnesium (1.6-2.3) mg/dL Total Bilirubin (0.2-1.3) mg/dL AST (14-36) U/L ALT (4-34) U/L Alkaline Phosphatase (38-126) U/L Troponin I <0.012 (0.000-0.034) ng/mL NT-Pro-B Natriuret Pep pg/mL Total Protein (6.3-8.2) g/dL Albumin (3.5-5.0) g/dL Disposition Clinical Impression: Hypoxia Disposition: ADMITTED IP TO THIS HOSP Condition: Fair Referrals: None,Stated [REFERRING] - 1-2 days Decision Time: 18:21
[2024-09-20 16:27] LABS: Basophils % (A) 0 %; Eosinophils # (A) 1.4 k/uL (0-0.7); Eosinophils % (A) 11 %; HCT 35.9 % (34.0-46.0); Hypochromasia Moderate; Lymphocytes # (A) 0.9 k/uL (1.0-4.8); Lymphocytes % (A) 7 %; MCH 26.9 pg (25.0-35.0); MCHC 30.7 g/dL (31.0-37.0); MCV 87.6 fL (80.0-100.0); Mean Platelet Volume 8.8; Monocytes # (A) 0.3 k/uL (0-1.0); Monocytes % (A) 2 %; Neutrophils # (A) 10.3 k/uL (1.3-7.7); Neutrophils % (A) 80 %; Platelet Count 199 k/uL (150-450); RDW 14.7 % (11.5-15.5)
--- NOTE | 2024-09-20 16:33 | XR ---
EXAMINATION TYPE: XR chest 2V DATE OF EXAM: 09/20/2024 4:25 PM COMPARISON: Previous chest radiographs 08/25/2021. CLINICAL INDICATION: Female, 73 years old with history of chest pain, cough, sob; [facility] TECHNIQUE: XR chest 2V Frontal and lateral views of the chest. FINDINGS: Cardiomegaly. Mild prominence of the interstitial pulmonary vascular markings. Small right pleural effusion. No siz able left pleural effusion. No acute focal consolidation. Impression pneumothorax. No acute osseous abnormality. IMPRESSION: Cardiomegaly, pulmonary vessel congestion and small right pleural effusion. [facility], Workstation: [facility], 09/20/2024 4:30 PM
[2024-09-20 16:39] LABS: African American GFR (CKD) 71 (>60 ml/min/1.73 sqM); Albumin 3.6 g/dL (3.5-5.0); Anion Gap 8 mmol/L; Blood Urea Nitrogen 20 mg/dL (7-17); Calcium 9.1 mg/dL (8.4-10.2); Carbon Dioxide 29 mmol/L (22-30); Chloride 107 mmol/L (98-107); Glucose 101 mg/dL (74-99); INR 1.1 (<1.2); Magnesium 1.7 mg/dL (1.6-2.3); Non-African American GFR(CKD) 62 (>60 ml/min/1.73 sqM); Partial Thromboplastin Time 22.9 sec (22.0-30.0); Potassium 3.8 mmol/L (3.5-5.1); Prothrombin Time 11.7 sec (10.0-12.5); Sodium 144 mmol/L (137-145); Total Bilirubin 0.5 mg/dL (0.2-1.3); Total Protein 6.4 g/dL (6.3-8.2)
[2024-09-20 16:40] LABS: ALT 14 U/L (4-34); AST 21 U/L (14-36); Alkaline Phosphatase 128 U/L (38-126)
[2024-09-20 16:48] LABS: NT-Pro-B-Type Natriuretic Pept 4170 pg/mL
[2024-09-20] MEDS: DEXAMETHASONE SOD PHOSPHATE 10 MG/ML 1 ML VIAL IV STA (17:24)
[2024-09-20] MEDS: FUROSEMIDE 10 MG/ML 4 ML VIAL IV STA (17:25)
[2024-09-20] MEDS: IPRATROPIUM-ALBUTEROL 3 ML NEB INHALATION STA (17:53)
[2024-09-20] MEDS ORDERED: IPRATROPIUM-ALBUTEROL 3 ML NEB INHALATION PRN (18:18)
[2024-09-20] MEDS ORDERED: NALOXONE 0.4 MG/ML 1 ML VIAL IVP PRN (18:18)
[2024-09-20] MEDS: AZITHROMYCIN 500 MG TAB PO SCH (18:34)
[2024-09-20] MEDS: HYDROcodone/APAP 5-325MG 1 EACH TAB PO STA (18:34)
[2024-09-20] MEDS: METOPROLOL TARTRATE 5 MG/5 ML VIAL IVP STA (18:35)
--- NOTE | 2024-09-20 20:21 | P.HPIM ---
History of Present Illness H&P Date: 09/20/24 Chief Complaint: Shortness of breath History of present illness; 73-year-old female with a PMH of atrial fibrillation (on Eliquis), COPD (not on home O2), history of multiple TIA and CVA, history of dementia, fibromyalgia, hypothyroidism, GERD, hyperlipidemia, hypertension, OA, and CAD who presents with complaints of shortness of breath. Reports for the past week she has had a cough, shortness of breath, and chest pain. Patient characterizes the chest pain as 3 out of 10 pain, located in the central chest rating to the right, sharp and stabbing in nature. Reports it is constant since earlier today and the highest it has been is 9 but has not decreased. Reports chest pain is worse with coughing. Reports color of sputum is usually brown or white. Reports that during the week as her cough and shortness of breath got worse that she increase the frequency of her breathing treatments without much alleviating effect. Reports that she recently spoke with her vascular surgeon about her legs which potentially would be operated on for revascularization. Of note patient is a participant at [facility]. Reports she was seen by home health care nurse who contacted the on-call [facility] physician who decided the patient should be transferred to the emergency department. Per EMS the patient was hypoxic upon arrival in the mid 80s and was placed on 5 L nasal cannula. EMS also reports the patient was initially cyanotic. Admits to left lower quadrant abdominal pain that comes and goes. Denies headache, nausea, vomiting, diarrhea, constipation, lower extremity swelling. Since being in the ED and receiving breathing treatments and IV Lasix the patient reports her symptoms have significantly improved. Family history: CHF and SC Surgical history: Cholecystectomy, heart catheterization, hysterectomy, tonsillectomy, and tubal ligation Social history: Current everyday smoker, no reported alcohol use, and occasional marijuana use. Labs: WBC 13, hemoglobin 11, MCV 87.6, neutrophils 10.3, sodium 144, potassium 3.8, BUN 20, creatinine 0.93, glucose 101, alkaline phosphatase 128, troponin less than 0.012, and BNP 4170. Imaging: -EKG done in the ER showed heart rate of 107 bpm, no ST segment elevation or depression seen, no T-wave inversions seen. Atrial fibrillation with RVR and QTc 395 ms. -ER CXR: Cardiomegaly, pulmonary vascular congestion and small right pleural effusion. REVIEW OF SYSTEMS: As stated above in HPI. The rest of the 14-point review of systems is negative. PHYSICAL EXAMINATION: GENERAL: The patient is alert and oriented x3, not in any acute distress. Well developed, well nourished. Obese. HEENT: Pupils are round and equally reacting to light. EOMI. No scleral icterus. No conjunctival pallor. Normocephalic, atraumatic. No pharyngeal erythema. No thyromegaly. CARDIOVASCULAR: S1 and S2 present. No murmurs, rubs, or gallops. Irregularly irregular rhythm. PULMONARY: Crackles auscultated in left lower lung field, and diminished/dull lung sounds auscultated in right lower lung field. Sparse expiratory wheezes auscultated bilaterally. ABDOMEN: Soft, nontender, nondistended, normoactive bowel sounds. No palpable organomegaly. MUSCULOSKELETAL: No joint swelling or deformity. Amputated second and third digits on right hand. EXTREMITIES: No cyanosis, clubbing, or pedal edema. No lower extremity edema. NEUROLOGICAL: Gross neurological examination did not reveal any focal deficits. SKIN: No rashes Assessment/Plan: #Acute hypoxic respiratory failure, suspect multifactorial with COPD exacerbation and new presentation of CHF vs less likely pneumonia -C/w Duonebs RTC and prn q4h -C/w Prednisone 40 mg po qd -C/w IV Lasix 40 mg IV twice daily -Continue home metoprolol 25 mg p.o. twice daily, Crestor 10 mg p.o. at bedtime, and spironolactone 25 mg p.o. daily -Continue prednisone 40 mg p.o. daily, continue DuoNeb 3 mL every 2 hours as needed -Resume home breathing treatments -Continue Zithromax 500 mg p.o. daily -Follow-up sputum culture and blood culture. Check legionella antigen -Ordered Pro-Calcitonin -Cardiology consulted -Pulmonology consulted -Obtain Echocardiogram -Cardiac monitoring -Fluid restriction -Daily weights, I/Os #Atrial fibrillation with RVR: -EKG in the ED shows atrial fibrillation with RVR 107 bpm -Continue home Eliquis 5 mg p.o. twice daily -Continue cardiac monitoring #Hyperlipidemia: -Continue home Crestor 10 mg p.o. at bedtime #Hypothyroidism: -Continue home Synthroid 50 mcg p.o. daily #Hypertension: -Continue home spironolactone 25 mg p.o. daily and metoprolol 25 mg twice daily #History of multiple TIA/CVA: -Continue home Eliquis 5 mg p.o. twice daily #Normocytic anemia: -Ordered B12, folate, and iron panel F: None in the setting of potential CHF exacerbation E: None N: Heart healthy diet A: Normally ambulates with cane at home DVT ppx: Eliquis 5 mg p.o. twice daily GI ppx: Protonix 40 mg p.o. daily Dispo: Pending clearance from cardiology and pulmonology as well as resolution of current symptoms. Likely 2 or more midnights stay. April Flores MD PGY-1 FM Dictation was produced using [employer] dictation software. please excuse any grammatical, word or spelling errors. Past Medical History Past Medical History: Atrial Fibrillation, Asthma, Coronary Artery Disease (CAD), Chest Pain / Angina, COPD, CVA/TIA, Fibromyalgia, GERD/Reflux, Hyperlipidemia, Hypertension, Memory Impairment, Myocardial Infarction (SC), Osteoarthritis (OA), Pneumonia Additional Past Medical History / Comment(s): SOME SHORT TERM MEMORY LOSS, NEUROPATHY BILATERAL UPPER AND LOWER EXTREMITIES, CHRONIC BACK PAIN, DJD, CVA 2006, TIA 2007, BRONCHITIS, SINUS PROBLEMS AT TIMES, 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, BILATERAL TINNITIS, PAST L FOOT FRACTURES THAT HEALED INCORRECTLY, UTIs Last Myocardial Infarction Date:: vanessa History of Any Multi-Drug Resistant Organisms: None Reported Past Surgical History: Bladder Surgery, Cholecystectomy, Heart Catheterization, Hysterectomy, Orthopedic Surgery, Tonsillectomy, Tubal Ligation Additional Past Surgical History / Comment(s): 2013 CARDIAC CATH TX MEDICALLY, BENIGN OVARIAN TUMOR REMOVAL, BENIGN PERINEAL TUMOR REMOVAL, BILATERAL VOCAL CORDS STRIPPED D/T TUMORS, FIRST 2 FINGER r HAND PARTIAL AMP D/T INJURY, 2 BLADDER SUSPENSIONS, COLONOSCOPY/HEMORRHOIDECTOMY. PAIN CLINIC PROCEDURES Past Anesthesia/Blood Transfusion Reactions: Previous Problems w/ Anesthesia Additional Past Anesthesia/Blood Transfusion Reaction / Comment(s): difficulty waking in past. claustrophobia Past Psychological History: Anxiety, Depression Smoking Status: Current every day smoker Past Alcohol Use History: None Reported Past Drug Use History: None Reported - Past Family History Mother Family Medical History: CVA/TIA Additional Family Medical History / Comment(s): Mother at age 73 from a brain stem stroke. Brother(s) Family Medical History: Dementia Additional Family Medical History / Comment(s): Patient has 2 full brothers with no major medical problems. Patient does not have any sisters. Patient has 3 sons with no major medical problems. Son(s) Family Medical History: Cancer Additional Family Medical History / Comment(s): ONE SON IS OBESE. THE OTHER SON HAD LYMPHOMA Father Family Medical History: Congestive Heart Failure (CHF), Myocardial Infarction (SC) Additional Family Medical History / Comment(s): Father at age 76 from a massive heart attack. Medications and Allergies Home Medications Medication Instructions Recorded Confirmed Type Metoprolol Tartrate 25 mg PO BID 07/03/20 09/20/24 History Apixaban [Eliquis] 5 mg PO BID #60 tab 07/07/20 09/20/24 Rx Omeprazole 40 mg PO AC-BID 05/25/21 09/20/24 History Dicyclomine [Bentyl] 10 mg PO TID 06/11/21 09/20/24 History Donepezil [Aricept] 5 mg PO HS 06/11/21 09/20/24 History Acetaminophen Tab [Tylenol] 650 mg PO Q6H PRN 09/20/24 09/20/24 History Albuterol Inhaler [Ventolin Hfa 2 puff INHALATION RT-Q4H PRN 09/20/24 09/20/24 History Inhaler] Albuterol Nebulized [Ventolin 2.5 mg INHALATION RT-QID PRN 09/20/24 09/20/24 History Nebulized] Ascorbic Acid [Vitamin C] 1,000 mg PO BID 09/20/24 09/20/24 History Azithromycin [Zithromax] See Taper PO DIRECTED 09/20/24 09/20/24 History Biofreeze 10% Cream 1 applic TOPICAL TID PRN 09/20/24 09/20/24 History Brexpiprazole [Rexulti] 1 mg PO DAILY 09/20/24 09/20/24 History Budesonide/Formoterol Fumarate 2 puff INHALATION RT-BID 09/20/24 09/20/24 History [Symbicort 160-4.5 Mcg Inhaler] Carboxymethylcellulos/Glycerin 1 drop BOTH EYES QID 09/20/24 09/20/24 History [Refresh Relieva 0.5-0.9% Drop] Ergocalciferol (Vitamin D2) 1,250 mcg PO MO 09/20/24 09/20/24 History [Drisdol (50,000 Iu)] Ibuprofen [Motrin] 600 mg PO QID PRN 09/20/24 09/20/24 History Levothyroxine Sodium [Synthroid] 50 mcg PO DAILY 09/20/24 09/20/24 History Loperamide HCl [Imodium A-D] 2 - 4 mg PO QID PRN 09/20/24 09/20/24 History Meclizine HCl 50 mg PO BID PRN MDD 100mg 09/20/24 09/20/24 History Meloxicam [Mobic] 7.5 mg PO DAILY 09/20/24 09/20/24 History Multivitamins, Thera [Multivitamin 1 tab PO DAILY 09/20/24 09/20/24 History (formulary)] Nicotine Polacrilex [Nicorette] 4 mg BC 5XD PRN 09/20/24 09/20/24 History Nystatin 100,000 Unit/gm Powd 1 applic TOPICAL TID 09/20/24 09/20/24 History [Mycostatin Powder] Gormania-3 Acid Ethyl Esters [Lovaza] 2 gm PO BID 09/20/24 09/20/24 History QUEtiapine [SEROquel] 200 mg PO HS 09/20/24 09/20/24 History Rosuvastatin [Crestor] 10 mg PO HS 09/20/24 09/20/24 History Sertraline [Zoloft] 100 mg PO HS 09/20/24 09/20/24 History Spironolactone [Aldactone] 25 mg PO DAILY 09/20/24 09/20/24 History Zinc Gluconate [Zinc] 50 mg PO DAILY 09/20/24 09/20/24 History buPROPion XL [Wellbutrin XL] 300 mg PO DAILY 09/20/24 09/20/24 History diphenhydrAMINE [Benadryl] 50 mg PO HS 09/20/24 09/20/24 History guaiFENesin SYRUP 100MG/5ML 400 mg PO DIRECTED PRN 09/20/24 09/20/24 History [Robitussin] polyethylene glycoL 3350 [Miralax] 17 gm PO DAILY 09/20/24 09/20/24 History predniSONE [Deltasone] 20 mg PO DIRECTED 09/20/24 09/20/24 History Allergies Allergy/AdvReac Type Severity Reaction Status Date / Time atorvastatin [From Lipitor] Allergy Unknown Verified 09/20/24 17:06 cephalexin monohydrate Allergy Rash/Hives Verified 09/20/24 17:06 [From Keflex] ciprofloxacin [From Cipro] Allergy Swelling Verified 09/20/24 17:06 Iodinated Contrast Media Allergy Dyspnea Verified 09/20/24 17:06 latex Allergy Rash/Hives Verified 09/20/24 17:06 oxytetracycline Allergy Rash/Hives Verified 09/20/24 17:06 [From Terramycin] Penicillins Allergy Rash/Hives Verified 09/20/24 17:06 Sulfa (Sulfonamide Allergy Rash/Hives Verified 09/20/24 17:06 Antibiotics) Physical Exam Vitals: Vital Signs Temp Pulse Resp BP Pulse Ox 09/20/24 18:37 112 H 18 111/87 09/20/24 18:00 134 H 20 09/20/24 17:55 121 H 21 118/82 95 09/20/24 17:54 124 H 22 09/20/24 17:00 111 H 20 142/81 99 09/20/24 16:17 123 H 20 130/83 98 09/20/24 15:55 22 09/20/24 15:52 97.1 F L 42 L 24 118/89 95 Intake and Output 09/20/24 09/20/24 09/20/24 06:59 14:59 22:59 Other: Weight 86.183 kg Results CBC & Chem 7: 09/20/24 16:06 09/20/24 16:06 Labs: Abnormal Lab Results - Last 24 Hours (Table) 09/20/24 09/20/24 Range/Units 16:06 16:06 WBC 13.0 H (3.8-10.6) k/uL Hgb 11.0 L (11.4-16.0) gm/dL MCHC 30.7 L (31.0-37.0) g/dL Neutrophils # 10.3 H (1.3-7.7) k/uL Lymphocytes # 0.9 L (1.0-4.8) k/uL Eosinophils # 1.4 H (0-0.7) k/uL BUN 20 H (7-17) mg/dL Glucose 101 H (74-99) mg/dL Alkaline Phosphatase 128 H (38-126) U/L
[2024-09-20] MEDS: APIXABAN 5 MG TAB PO SCH (21:00)
[2024-09-21] MEDS: QUEtiapine 100 MG TAB PO SCH (02:07)
[2024-09-21] MEDS: predniSONE 20 MG TAB PO SCH (08:17)
[2024-09-21] MEDS: PANTOPRAZOLE 40 MG TABLET PO SCH (08:17)
[2024-09-21] MEDS: LEVOTHYROXINE 50 MCG TAB PO SCH (08:17)
[2024-09-21] MEDS: SPIRONOLACTONE 25 MG TAB PO SCH (08:17)
[2024-09-21] MEDS: METOPROLOL TARTRATE 25 MG TAB PO SCH (08:17)
[2024-09-21] MEDS: IPRATROPIUM-ALBUTEROL 3 ML NEB INHALATION SCH (08:23)
[2024-09-21] MEDS: SYMBICORT 160-4.5 MCG INHALER INHALATION SCH (08:23)
[2024-09-21 09:25] LABS: HCT 33.1 % (34.0-46.0); HGB 10.3 gm/dL (11.4-16.0); Hypochromasia Moderate; MCH 27.2 pg (25.0-35.0); MCHC 31.1 g/dL (31.0-37.0); MCV 87.6 fL (80.0-100.0); Mean Platelet Volume 8.5; Platelet Count 198 k/uL (150-450); RBC 3.78 m/uL (3.80-5.40); RDW 14.4 % (11.5-15.5); WBC 18.1 k/uL (3.8-10.6)
[2024-09-21 09:29] LABS: ALT 18 U/L (4-34); AST 22 U/L (14-36); African American GFR (CKD) 63 (>60 ml/min/1.73 sqM); Albumin 3.2 g/dL (3.5-5.0); Albumin/Globulin Ratio 1.2; Alkaline Phosphatase 143 U/L (38-126); Anion Gap 3 mmol/L; Blood Urea Nitrogen 23 mg/dL (7-17); Calcium 8.9 mg/dL (8.4-10.2); Carbon Dioxide 33 mmol/L (22-30); Chloride 103 mmol/L (98-107); Globulin 2.7 g/dL; Glucose 148 mg/dL (74-99); Magnesium 1.7 mg/dL (1.6-2.3); Non-African American GFR(CKD) 55 (>60 ml/min/1.73 sqM); Potassium 4.1 mmol/L (3.5-5.1); Sodium 139 mmol/L (137-145); Total Bilirubin 0.7 mg/dL (0.2-1.3); Total Protein 5.9 g/dL (6.3-8.2)
[2024-09-21] MEDS ORDERED: MAG HYDROX/AL HYDROX/SIMETH 30 ML CUP PO PRN (10:04)
[2024-09-21] MEDS ORDERED: SODIUM CHLORIDE 0.65% NASAL SPRAY 44 ML BTL NASAL PRN (10:05)
[2024-09-21] MEDS: methylPREDNISolone SOD SUCCI 125 MG/2 ML VIAL IV SCH (10:32)
[2024-09-21] MEDS: FUROSEMIDE 10 MG/ML 4 ML VIAL IV SCH (10:32)
--- NOTE | 2024-09-21 12:50 | P.PN ---
Subjective Progress Note Date: 09/21/24 Hospital course: Patient is a pleasant 73-year-old female with a past medical history of CAD status post stenting, chronic atrial fibrillation on anticoagulation with Eliquis, hypertension, hyperlipidemia, chronic diastolic heart failure, COPD not home oxygen dependent, pulmonary hypertension, hypothyroidism, multiple TIAs and previous CVA, hypothyroidism, nicotine dependence and dementia with mild to moderate memory impairment (son Elpidio is her legal guardian). Presented to the hospital with a chief complaint of shortness of breath and acute respiratory failure. Discussed with PCP, Dr. Quispe who reports patient's symptoms initially started on 09/16/2024 and she was started on a 5-day course of Zithromax completing last dose 09/20/2024. He reports on Sunday her shortness of breath increased but she was maintaining her SpO2 in the 90s and was started on prednisone. He reports during follow-up phone call and 09/20/2024 he noted patient to have increased conversational dyspnea and sent home care nurse out to patient's home to assess and patient was found to be in respiratory distress with tachypneic respirations and SpO2 in the 60s so EMS was called and patient was transferred to our facility. Upon arrival to our facility patient underwent evaluation in the emergency department. Vital signs upon arrival show blood pressure 118/89, heart rate 42, respiratory rate 24, temp 97.1 F, and SpO2 of 95% on aerosol mask. EKG completed showing atrial fibrillation with a rapid ventricular rate of 107 bpm. Chest x-ray completed showing cardiomegaly and pulmonary vascular congestion with small right pleural effusion consistent with mild CHF exacerbation. Labs completed and reviewed. CBC showing leukocytosis with WBC count of 13.0 and normocytic anemia with hemoglobin of 11.0. BMP showing mild prerenal azotemia with BUN of 20 otherwise normal findings. Blood glucose 101. Lactic acid was 1.7. Magnesium slightly low at 1.7. Liver profile showing elevated alkaline phosphatase of 128. Troponin was negative at less than 0.012 and proBNP was 4170. Patient admitted under our services for acute hypoxic respiratory failure. Pulmonology consulted. Physical exam: Patient seen and fully evaluated at bedside this morning. She reports continued but better shortness of breath. She also reports pain to right rib region with coughing. She denies having any headache, lightheadedness, dizziness, palpitations, or any other complaints at this time. Vital signs reviewed and stable. General: Nontoxic, no distress and appears stated age. Derm: Skin warm and dry, normal coloration for ethnicity. Head: Atraumatic, normocephalic and symmetric. Eyes: EOM's intact, no lid lag, and anicteric sclera Mouth: no lip lesions, mucus membranes moist Cardiovascular: Irregularly irregular, systolic murmur, positive posterior tibial pulses bilaterally, and cap refill < 2 seconds. Lungs: Respirations even, regular, and unlabored on 2 L O2 via nasal cannula. Lungs diminished with diffuse expiratory wheezes throughout and soft bibasilar crackles. Abdominal: soft, nontender to palpation, no guarding, no appreciable organomegaly Ext: Movement and sensation intact. No gross muscle atrophy, no edema, no contractures. 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 Neuro: Speech clear, face symmetrical and CN II-XII grossly intact with no noted focal neuro deficits Psych: Alert and oriented to person, place, time, and situation. Slightly poor historian. Appropriate and pleasant affect. Assessment and Plan of Care: Acute respiratory failure with hypoxia and hypercarbia, multifactorial COPD with acute exacerbation Acute on chronic diastolic heart failure exacerbation -Consult to Pulmonology, appreciate recommendations -Oxygenation to be administered and titrated as needed to maintain SPO2 equal to or greater than 92% -Telemetry monitoring. -Monitor pulse-oximetry -Duonebs scheduled 4 times daily and as needed for SOB and/or wheezing -Incentive Spirometry -Steroids: Solu-Medrol 60 mg IVP every 8 hours -Lasix 40 mg IVP daily -Antibiotics: Continue Azithromycin 500 mg daily (day # 2 of 3) and follow-up on procalcitonin results. -Obtain Echocardiogram, previous echo completed 08/26/2021 was reviewed revealing preserved EF of 55 to 60% -Continue close monitoring of electrolytes and renal function while on IV diuresis. -Strict I's and O's and daily weights. Atrial fibrillation with RVR, currently maintaining controlled ventricular rate. Continue Eliquis 5 mg twice daily and metoprolol 25 mg twice daily. Telemetry monitoring. Hypertension: Continue daily medication regimen with metoprolol 25 mg twice daily and Aldactone 25 mg daily. Hyperlipidemia: Continue rosuvastatin 10 mg nightly. Hypothyroidism: Continue levothyroxine 50 mcg daily. History of multiple TIAs and CVA: Continue aspirin 81 mg daily and rosuvastatin 10 mg daily. Dementia with mild to moderate memory/cognitive impairment: Continue Aricept 5 mg daily and provide safe and supportive care with assistance and redirection as needed. Fall precautions in place. Data and imaging reviewed: -Morning labs reviewed. CBC showing leukocytosis with WBC count of 18.1 and stable normocytic anemia with hemoglobin of 10.3. BMP showing hypercarbia with bicarb of 33 and slightly elevated renal function with BUN of 23, creatinine of 1.02, and GFR of 55. Blood glucose 148. Magnesium 1.7. Liver profile showing elevated alkaline phosphatase of 143 and hypoalbuminemia with albumin of 3.2. -Vital signs reviewed. Blood pressure 105/64, heart rate 71, respiratory rate 16, temp 98.5 F, and SpO2 of 93% on 2 L. CODE STATUS: Full code DVT prophylaxis: Eliquis Discussed with: Patient, RN, and patient's PCP Dr. Quispe Anticipated discharge date: Pending clinical course Anticipated discharge place: Home Patient was seen independently by Nurse Pracitioner. This document was prepared using [employer] dictation software. Please allow for e rrors in outside plant technician, while rare they do occur. Evaristo Sandhu NP rendered care for this patient independently, reviewed the findings and plan as documented in the note above and agree with plan. I did not physically speak with or examine the patient on this date. Objective - Vital Signs Vital signs: Vital Signs Temp 98.5 F 09/21/24 07:34 Pulse 78 09/21/24 08:35 Resp 16 09/21/24 07:34 BP 105/64 09/21/24 07:34 Pulse Ox 93 L 09/21/24 08:29 FiO2 Intake & Output 09/20/24 09/21/24 09/21/24 18:59 06:59 18:59 Weight 86.183 kg - Labs CBC & Chem 7: 09/21/24 08:40 09/21/24 08:40 Labs: Abnormal Lab Results - Last 24 Hours (Table) 09/20/24 09/20/24 Range/Units 16:06 16:06 WBC 13.0 H (3.8-10.6) k/uL Hgb 11.0 L (11.4-16.0) gm/dL MCHC 30.7 L (31.0-37.0) g/dL Neutrophils # 10.3 H (1.3-7.7) k/uL Lymphocytes # 0.9 L (1.0-4.8) k/uL Eosinophils # 1.4 H (0-0.7) k/uL BUN 20 H (7-17) mg/dL Glucose 101 H (74-99) mg/dL Alkaline Phosphatase 128 H (38-126) U/L
--- NOTE | 2024-09-21 12:55 | P.CNPUL ---
History of Present Illness Consult date: 09/21/24 Reason for consult: dyspnea History of present illness: 73-year-old female patient, being seen in consultation for shortness of breath. The patient is known to have COPD and she is a chronic smoker continues to smoke around 1 pack of cigarettes a day. She has chronic medical problems including fibromyalgia, dementia, previous CVA/TIA hypertension, hyperlipidemia, irritable bowel disease, and previous history of atrial fibrillation. She is oxygen dependent. She has been utilizing albuterol rescue inhaler only on an as-needed basis. She comes into the emergency department for worsening shortness of breath and chest pain, central, sharp and stabbing. No diaphoresis. No hemoptysis. No pleurisy. Upon arrival to the emergency, the patient was hypoxic and was placed on 5 L of oxygen by nasal cannula. And the patient was hospitalized for an acute CF exacerbation. Chest x-ray was reviewed and shows COPD along with cardiomegaly and increased pulm vessel markings consistent with a component of CHF and a small right-sided pleural effusion. The white cell count is currently at 18.12 with a hemoglobin 10.3 and a platelet count of 198. Normal coagulation profile. Normal renal function. Normal electrolytes with serum bicarb of 33, proBNP level is 4170 and troponins are negative and LFTs are essentially within normal limits. The patient's EKG is consistent with atrial fibrillation. Noted the patient is already on anticoagulants with Eliquis 5 mg p.o. twice a day. She was started on Symbicort, DuoNebs about treatments a [id number] and I started the patient on IV Solu-Medrol today as the patient was found to be actively bronchospastic and wheezy. She is also on Lasix 40 mg IV daily and Aldactone. Previous low-dose CAT scan of the chest from 02/28/2024 showed some nonspecific stable bilateral pulmonary nodules. Those are being monitored. Last echocardiogram was from 2020 and back then the patient had a preserved LV function without any significant valvular abnormalities. She is currently weaned down to 2 L with a pulse ox of 93%. Hemodynamically stable. Review of Systems Constitutional: Reports fatigue, Reports weakness, Denies chills, Denies poor appetite Eyes: denies blurred vision, denies pain Ears, nose, mouth and throat: Denies dysphagia, Denies headache, Denies nasal congestion, Denies nasal discharge, Denies sore throat, Denies vertigo Cardiovascular: Reports chest pain, Reports shortness of breath, Denies lightheadedness, Denies syncope Respiratory: Reports cough, Reports cough with sputum, Reports dyspnea, Reports respiratory infections, Denies excessive sputum, Denies hemoptysis, Denies home oxygen. The patient also reports pain across her right chest radiating to her back. Gastrointestinal: Denies abdominal pain, Denies diarrhea, Denies nausea, Denies vomiting Genitourinary: Reports flank pain Musculoskeletal: Denies frequent falls, Denies gait dysfunction, Denies myalgias Integumentary: Reports wounds (Right lower leg), Denies pruritus, Denies rash Neurological: Denies change in mentation, Denies confusion, Denies numbness, Denies weakness Psychiatric: Denies anxiety, Denies depression Endocrine: Denies fatigue, Denies weight change Constitutional: Reports weakness Eyes: denies as per HPI, denies blurred vision, denies bulging eye, denies decreased vision, denies diplopia, denies discharge, denies dry eye, denies irritation, denies itching, denies pain, denies photophobia, denies loss of peripheral vision, denies loss of vision, denies tunnel vision/blind spots Ears: deny: decreased hearing, ear discharge, earache, tinnitus Ears, nose, mouth and throat: Reports as per HPI Breasts: absent: as per HPI, change in shape, gynecomastia, masses, nipple discharge, pain, skin changes, swelling Cardiovascular: Reports chest pain, Reports decreased exercise tolerance, Repo rts dyspnea on exertion Respiratory: Reports dyspnea Genitourinary: Reports as per HPI Menstruation: Reports as per HPI Musculoskeletal: absent: ankle pain, ankle stiffness, ankle swelling, as per HPI , elbow pain, elbow stiffness, elbow swelling, foot pain, foot stiffness, foot swelling, hand pain, hand stiffness, hand swelling, hip pain, hip stiffness, hip swelling, knee pain, knee stiffness, knee swelling, shoulder pain, shoulder stiffness, shoulder swelling, wrist pain, wrist stiffness, wrist swelling Integumentary: Reports as per HPI Neurological: Reports as per HPI Psychiatric: Reports as per HPI Hematologic/Lymphatic: Reports as per HPI Allergic/Immunologic: Reports as per HPI Past Medical History Past Medical History: Atrial Fibrillation, Asthma, Coronary Artery Disease (CAD), Chest Pain / Angina, COPD, CVA/TIA, Fibromyalgia, GERD/Reflux, Hyperlipidemia, Hypertension, Memory Impairment, Myocardial Infarction ([place]), Osteoarthritis (OA), Pneumonia Additional Past Medical History / Comment(s): SOME SHORT TERM MEMORY LOSS, NEUROPATHY BILATERAL UPPER AND LOWER EXTREMITIES, CHRONIC BACK PAIN, DJD, CVA 2006, TIA 2007, BRONCHITIS, SINUS PROBLEMS AT TIMES, 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, BILATERAL TINNITIS, PAST L FOOT FRACTURES THAT HEALED INCORRECTLY, UTIs Last Myocardial Infarction Date:: vanessa History of Any Multi-Drug Resistant Organisms: None Reported Past Surgical History: Bladder Surgery, Cholecystectomy, Heart Catheterization, Hysterectomy, Orthopedic Surgery, Tonsillectomy, Tubal Ligation Additional Past Surgical History / Comment(s): 2013 CARDIAC CATH TX MEDICALLY, BENIGN OVARIAN TUMOR REMOVAL, BENIGN PERINEAL TUMOR REMOVAL, BILATERAL VOCAL CORDS STRIPPED D/T TUMORS, FIRST 2 FINGER r HAND PARTIAL AMP D/T INJURY, 2 BLADDER SUSPENSIONS, COLONOSCOPY/HEMORRHOIDECTOMY. PAIN CLINIC PROCEDURES Past Anesthesia/Blood Transfusion Reactions: Previous Problems w/ Anesthesia Additional Past Anesthesia/Blood Transfusion Reaction / Comment(s): difficulty waking in past. claustrophobia Past Psychological History: Anxiety, Depression Smoking Status: Current every day smoker Past Alcohol Use History: None Reported Past Drug Use History: None Reported - Past Family History Mother Family Medical History: CVA/TIA Additional Family Medical History / Comment(s): Mother at age 73 from a brain stem stroke. Brother(s) Family Medical History: Dementia Additional Family Medical History / Comment(s): Patient has 2 full brothers with no major medical problems. Patient does not have any sisters. Patient has 3 sons with no major medical problems. Son(s) Family Medical History: Cancer Additional Family Medical History / Comment(s): ONE SON IS OBESE. THE OTHER SON HAD LYMPHOMA Father Family Medical History: Congestive Heart Failure (CHF), Myocardial Infarction ([place]) Additional Family Medical History / Comment(s): Father at age 76 from a massive heart attack. Medications and Allergies Home Medications Medication Instructions Recorded Confirmed Type Metoprolol Tartrate 25 mg PO BID 07/03/20 09/20/24 History Apixaban [Eliquis] 5 mg PO BID #60 tab 07/07/20 09/20/24 Rx Omeprazole 40 mg PO AC-BID 05/25/21 09/20/24 History Dicyclomine [Bentyl] 10 mg PO TID 06/11/21 09/20/24 History Donepezil [Aricept] 5 mg PO HS 06/11/21 09/20/24 History Acetaminophen Tab [Tylenol] 650 mg PO Q6H PRN 09/20/24 09/20/24 History Albuterol Inhaler [Ventolin Hfa 2 puff INHALATION RT-Q4H PRN 09/20/24 09/20/24 History Inhaler] Albuterol Nebulized [Ventolin 2.5 mg INHALATION RT-QID PRN 09/20/24 09/20/24 History Nebulized] Ascorbic Acid [Vitamin C] 1,000 mg PO BID 09/20/24 09/20/24 History Azithromycin [Zithromax] See Taper PO DIRECTED 09/20/24 09/20/24 History Biofreeze 10% Cream 1 applic TOPICAL TID PRN 09/20/24 09/20/24 History Brexpiprazole [Rexulti] 1 mg PO DAILY 09/20/24 09/20/24 History Budesonide/Formoterol Fumarate 2 puff INHALATION RT-BID 09/20/24 09/20/24 History [Symbicort 160-4.5 Mcg Inhaler] Carboxymethylcellulos/Glycerin 1 drop BOTH EYES QID 09/20/24 09/20/24 History [Refresh Relieva 0.5-0.9% Drop] Ergocalciferol (Vitamin D2) 1,250 mcg PO MO 09/20/24 09/20/24 History [Drisdol (50,000 Iu)] Ibuprofen [Motrin] 600 mg PO QID PRN 09/20/24 09/20/24 History Levothyroxine Sodium [Synthroid] 50 mcg PO DAILY 09/20/24 09/20/24 History Loperamide HCl [Imodium A-D] 2 - 4 mg PO QID PRN 09/20/24 09/20/24 History Meclizine HCl 50 mg PO BID PRN MDD 100mg 09/20/24 09/20/24 History Meloxicam [Mobic] 7.5 mg PO DAILY 09/20/24 09/20/24 History Multivitamins, Thera [Multivitamin 1 tab PO DAILY 09/20/24 09/20/24 History (formulary)] Nicotine Polacrilex [Nicorette] 4 mg BC 5XD PRN 09/20/24 09/20/24 History Nystatin 100,000 Unit/gm Powd 1 applic TOPICAL TID 09/20/24 09/20/24 History [Mycostatin Powder] Ruston-3 Acid Ethyl Esters [Lovaza] 2 gm PO BID 09/20/24 09/20/24 History QUEtiapine [SEROquel] 200 mg PO HS 09/20/24 09/20/24 History Rosuvastatin [Crestor] 10 mg PO HS 09/20/24 09/20/24 History Sertraline [Zoloft] 100 mg PO HS 09/20/24 09/20/24 History Spironolactone [Aldactone] 25 mg PO DAILY 09/20/24 09/20/24 History Zinc Gluconate [Zinc] 50 mg PO DAILY 09/20/24 09/20/24 History buPROPion XL [Wellbutrin XL] 300 mg PO DAILY 09/20/24 09/20/24 History diphenhydrAMINE [Benadryl] 50 mg PO HS 09/20/24 09/20/24 History guaiFENesin SYRUP 100MG/5ML 400 mg PO DIRECTED PRN 09/20/24 09/20/24 History [Robitussin] polyethylene glycoL 3350 [Miralax] 17 gm PO DAILY 09/20/24 09/20/24 History predniSONE [Deltasone] 20 mg PO DIRECTED 09/20/24 09/20/24 History Allergies Allergy/AdvReac Type Severity Reaction Status Date / Time atorvastatin [From Lipitor] Allergy Unknown Verified 09/20/24 17:06 cephalexin monohydrate Allergy Rash/Hives Verified 09/20/24 17:06 [From Keflex] ciprofloxacin [From Cipro] Allergy Swelling Verified 09/20/24 17:06 Iodinated Contrast Media Allergy Dyspnea Verified 09/20/24 17:06 latex Allergy Rash/Hives Verified 09/20/24 17:06 oxytetracycline Allergy Rash/Hives Verified 09/20/24 17:06 [From Terramycin] Penicillins Allergy Rash/Hives Verified 09/20/24 17:06 Sulfa (Sulfonamide Allergy Rash/Hives Verified 09/20/24 17:06 Antibiotics) Physical Exam Vitals: Vital Signs Temp Pulse Pulse Resp BP BP Pulse Ox 09/21/24 08:35 78 09/21/24 08:29 93 L 09/21/24 08:24 87 09/21/24 07:34 98.5 F 71 16 105/64 95 09/21/24 06:57 93 14 114/68 96 09/21/24 05:13 90 16 86/56 97 09/21/24 02:09 97.7 F 115 H 21 131/88 96 09/21/24 00:00 97.8 F 94 20 123/56 97 09/20/24 21:00 96 20 115/87 96 09/20/24 18:37 112 H 18 111/87 09/20/24 18:00 134 H 20 09/20/24 17:55 121 H 21 118/82 95 09/20/24 17:54 124 H 22 09/20/24 17:00 111 H 20 142/81 99 09/20/24 16:17 123 H 20 130/83 98 09/20/24 15:55 22 09/20/24 15:52 97.1 F L 42 L 24 118/89 95 Intake and Output 09/20/24 09/21/24 09/21/24 22:59 06:59 14:59 Other: Weight 86.183 kg The patient appeared well nourished and normally developed. Vital signs as documented. The patient is 2 L of Oxygen by Nasal Cannula Head exam is unremarkable. No scleral icterus or corneal arcus noted. Neck is without jugular venous distension, thyromegaly, or carotid bruits. Carotid upstrokes are brisk bilaterally. Lungs are diminished bilaterally and the patient has diffuse expiratory wheezing throughout the lung ravi bilaterally and prolongation of the exhalation phase of breathing Cardiac exam reveals the PMI to be normally sized and situated. Irregular consistent with atrial fibrillation. First and second heart sounds normal. No murmurs, rubs or gallops. Abdominal exam reveals normal bowel sounds, no masses, no organomegaly and no aortic enlargement. Extremities are nonedematous and both femoral and pedal pulses are normal. Examination of the skin revealed no evidence of significant rashes, suspicious appearing nevi or other concerning lesions. 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 Cranial nerves are essentially intact. Generalized weakness and gait dysfunction Results - Laboratory Findings CBC and BMP: 09/21/24 08:40 09/21/24 08:40 PT/INR, D-dimer PT 11.7 sec (10.0-12.5) 09/20/24 16:06 INR 1.1 (<1.2) 09/20/24 16:06 Abnormal lab findings: Abnormal Labs 09/20/24 09/20/24 09/21/24 16:06 16:06 08:40 WBC 13.0 H 18.1 H RBC 3.78 L Hgb 11.0 L 10.3 L Hct 33.1 L MCHC 30.7 L Neutrophils # 10.3 H Lymphocytes # 0.9 L Eosinophils # 1.4 H Carbon Dioxide BUN 20 H Glucose 101 H Alkaline Phosphatase 128 H Total Protein Albumin 09/21/24 08:40 WBC RBC Hgb Hct MCHC Neutrophils # Lymphocytes # Eosinophils # Carbon Dioxide 33 H BUN 23 H Glucose 148 H Alkaline Phosphatase 143 H Total Protein 5.9 L Albumin 3.2 L - Diagnostic Findings Chest x-ray: image reviewed Assessment and Plan Plan: Acute exacerbation of COPD along with a component of CHF. Clearly, the patient bronchospastic and wheezy and she is a chronic smoker and her COPD is exacerbated. At the same time, the chest x-ray showed increased pulm vessel markings and elevated proBNP level on her blood work. There is a component of fluid overload in addition and the patient is currently on IV Lasix. She was started on bronchodilators. She is on DuoNeb, Symbicort and IV Solu-Medrol will be also started. No major system medications regarding her COPD COPD, no maintenance inhalers, utilizing albuterol rescue inhaler on an as- needed basis, several times a day Chronic smoker, 1 pack of day Chronic dyspnea secondary to above Chronic atrial fibrillation Atypical chest pain, cardiology on the case Fibromyalgia Dementia Previous history of CVA/TIA Hypertension Hyperlipidemia Peripheral neuropathy IBS Difficulty with mobility and gait and the patient walks with the help of a walker and the patient has chronic neuropathy Acute leukocytosis Plan Continue DuoNeb nebulizer remains on the clock. Continue Symbicort 2 puffs twice a day. IV Solu-Medrol 60 mg every 6 hours. IV Lasix 40 mg every 24 hours and Aldactone. A-fib is controlled. Continue anticoagulation. Home medications were resumed. The patient is chronically debilitated. Smoking cessation counseling was done. Currently on 2 L of oxygen by nasal cannula. Will continue to follow.
[2024-09-21] MEDS: polyethylene glycoL 3350 17 GM POWD.PACK PO SCH (13:54)
[2024-09-21] MEDS: buPROPion XL 300 MG TAB.ER.24H PO SCH (13:59)
[2024-09-21] MEDS: NICOTINE 14MG/24HR PATCH TRANSDERM SCH (13:59)
[2024-09-21] MEDS: NYSTATIN 100,000 UNIT/GM POWD 15 GM TOPICAL SCH (13:59)
[2024-09-21] MEDS: MAGNESIUM SULFATE-D5W PMX 1 GM in DEXTROSE/WATER 1 100ML.BAG IVPB SCH (14:00)
--- NOTE | 2024-09-21 16:00 | P.CRDCN ---
History of Present Illness Consult date: 09/21/24 History of present illness: HISTORY OF PRESENTING ILLNESS 70-year-old female with past medical history of persistent atrial fibrillation, COPD, tobacco smoker, prior history of alcoholic liver disease, TIA, stroke in 2006, cardiac catheterization 2012. This time she presents the hospital because of increased worsening shortness of breath. Admission chest x-ray shows congestion NT-proBNP was elevated at 4000, creatinine 0.9, BUN 20, hemoglobin 11 magnesium 1.7. ECG shows atrial fibrillation with a heart rate in high 90s. Patient denies any chest pain. REVIEW OF SYSTEMS 14 point review of system is negative except what is mentioned above in HPI. PHYSICAL EXAMINATION Vital signs reviewed. Head: Normocephalic. Eyes: Sclerae nonicteric. Neck: Brisk carotid upstroke, no jugular venous distention. Lungs: Mild crackles audible Heart: Irregularly irregular pulse, mild systolic murmur audible Abdomen: Soft nontender, positive bowel sounds. Extremities: 1+ pitting edema Neuro: Alert, oritented, no focal deficits. Detailed neuro exam was not performed. ASSESSMENT Acute on chronic hypoxic respiratory failure Acute HFpEF exacerbation COPD Active tobacco smoker Prior history of TIA/CVA PLAN Obtain updated echocardiogram Continue Lasix 40 mg IV daily. Aldactone 20 mg daily Aspirin 81 mg, Eliquis 5 mg twice daily Metoprolol 25 mg twice daily Past Medical History Past Medical History: Atrial Fibrillation, Asthma, Coronary Artery Disease (CAD), Chest Pain / Angina, COPD, CVA/TIA, Fibromyalgia, GERD/Reflux, Hyper lipidemia, Hypertension, Memory Impairment, Myocardial Infarction ([place]), Osteoarthritis (OA), Pneumonia Additional Past Medical History / Comment(s): SOME SHORT TERM MEMORY LOSS, NEUROPATHY BILATERAL UPPER AND LOWER EXTREMITIES, CHRONIC BACK PAIN, DJD, CVA 2006, TIA 2007, BRONCHITIS, SINUS PROBLEMS AT TIMES, 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, BILATERAL TINNITIS, PAST L FOOT FRACTURES THAT HEALED INCORRECTLY, UTIs Last Myocardial Infarction Date:: vanessa History of Any Multi-Drug Resistant Organisms: None Reported Past Surgical History: Bladder Surgery, Cholecystectomy, Heart Catheterization, Hysterectomy, Orthopedic Surgery, Tonsillectomy, Tubal Ligation Additional Past Surgical History / Comment(s): 2013 CARDIAC CATH TX MEDICALLY, BENIGN OVARIAN TUMOR REMOVAL, BENIGN PERINEAL TUMOR REMOVAL, BILATERAL VOCAL CORDS STRIPPED D/T TUMORS, FIRST 2 FINGER r HAND PARTIAL AMP D/T INJURY, 2 BLADDER SUSPENSIONS, COLONOSCOPY/HEMORRHOIDECTOMY. PAIN CLINIC PROCEDURES Past Anesthesia/Blood Transfusion Reactions: Previous Problems w/ Anesthesia Additional Past Anesthesia/Blood Transfusion Reaction / Comment(s): difficulty waking in past. claustrophobia Past Psychological History: Anxiety, Depression Smoking Status: Current every day smoker Past Alcohol Use History: None Reported Past Drug Use History: None Reported - Past Family History Mother Family Medical History: CVA/TIA Additional Family Medical History / Comment(s): Mother at age 73 from a brain stem stroke. Brother(s) Family Medical History: Dementia Additional Family Medical History / Comment(s): Patient has 2 full brothers with no major medical problems. Patient does not have any sisters. Patient has 3 sons with no major medical problems. Son(s) Family Medical History: Cancer Additional Family Medical History / Comment(s): ONE SON IS OBESE. THE OTHER SON HAD LYMPHOMA Father Family Medical History: Congestive Heart Failure (CHF), Myocardial Infarction ([place]) Additional Family Medical History / Comment(s): Father at age 76 from a massive heart attack. Medications and Allergies Home Medications Medication Instructions Recorded Confirmed Type Metoprolol Tartrate 25 mg PO BID 07/03/20 09/20/24 History Apixaban [Eliquis] 5 mg PO BID #60 tab 07/07/20 09/20/24 Rx Omeprazole 40 mg PO AC-BID 05/25/21 09/20/24 History Dicyclomine [Bentyl] 10 mg PO TID 06/11/21 09/20/24 History Donepezil [Aricept] 5 mg PO HS 06/11/21 09/20/24 History Acetaminophen Tab [Tylenol] 650 mg PO Q6H PRN 09/20/24 09/20/24 History Albuterol Inhaler [Ventolin Hfa 2 puff INHALATION RT-Q4H PRN 09/20/24 09/20/24 History Inhaler] Albuterol Nebulized [Ventolin 2.5 mg INHALATION RT-QID PRN 09/20/24 09/20/24 History Nebulized] Ascorbic Acid [Vitamin C] 1,000 mg PO BID 09/20/24 09/20/24 History Azithromycin [Zithromax] See Taper PO DIRECTED 09/20/24 09/20/24 History Biofreeze 10% Cream 1 applic TOPICAL TID PRN 09/20/24 09/20/24 History Brexpiprazole [Rexulti] 1 mg PO DAILY 09/20/24 09/20/24 History Budesonide/Formoterol Fumarate 2 puff INHALATION RT-BID 09/20/24 09/20/24 History [Symbicort 160-4.5 Mcg Inhaler] Carboxymethylcellulos/Glycerin 1 drop BOTH EYES QID 09/20/24 09/20/24 History [Refresh Relieva 0.5-0.9% Drop] Ergocalciferol (Vitamin D2) 1,250 mcg PO MO 09/20/24 09/20/24 History [Drisdol (50,000 Iu)] Ibuprofen [Motrin] 600 mg PO QID PRN 09/20/24 09/20/24 History Levothyroxine Sodium [Synthroid] 50 mcg PO DAILY 09/20/24 09/20/24 History Loperamide HCl [Imodium A-D] 2 - 4 mg PO QID PRN 09/20/24 09/20/24 History Meclizine HCl 50 mg PO BID PRN MDD 100mg 09/20/24 09/20/24 History Meloxicam [Mobic] 7.5 mg PO DAILY 09/20/24 09/20/24 History Multivitamins, Thera [Multivitamin 1 tab PO DAILY 09/20/24 09/20/24 History (formulary)] Nicotine Polacrilex [Nicorette] 4 mg BC 5XD PRN 09/20/24 09/20/24 History Nystatin 100,000 Unit/gm Powd 1 applic TOPICAL TID 09/20/24 09/20/24 History [Mycostatin Powder] Lakin-3 Acid Ethyl Esters [Lovaza] 2 gm PO BID 09/20/24 09/20/24 History QUEtiapine [SEROquel] 200 mg PO HS 09/20/24 09/20/24 History Rosuvastatin [Crestor] 10 mg PO HS 09/20/24 09/20/24 History Sertraline [Zoloft] 100 mg PO HS 09/20/24 09/20/24 History Spironolactone [Aldactone] 25 mg PO DAILY 09/20/24 09/20/24 History Zinc Gluconate [Zinc] 50 mg PO DAILY 09/20/24 09/20/24 History buPROPion XL [Wellbutrin XL] 300 mg PO DAILY 09/20/24 09/20/24 History diphenhydrAMINE [Benadryl] 50 mg PO HS 09/20/24 09/20/24 History guaiFENesin SYRUP 100MG/5ML 400 mg PO DIRECTED PRN 09/20/24 09/20/24 History [Robitussin] polyethylene glycoL 3350 [Miralax] 17 gm PO DAILY 09/20/24 09/20/24 History predniSONE [Deltasone] 20 mg PO DIRECTED 09/20/24 09/20/24 History Allergies Allergy/AdvReac Type Severity Reaction Status Date / Time atorvastatin [From Lipitor] Allergy Unknown Verified 09/20/24 17:06 cephalexin monohydrate Allergy Rash/Hives Verified 09/20/24 17:06 [From Keflex] ciprofloxacin [From Cipro] Allergy Swelling Verified 09/20/24 17:06 Iodinated Contrast Media Allergy Dyspnea Verified 09/20/24 17:06 latex Allergy Rash/Hives Verified 09/20/24 17:06 oxytetracycline Allergy Rash/Hives Verified 09/20/24 17:06 [From Terramycin] Penicillins Allergy Rash/Hives Verified 09/20/24 17:06 Sulfa (Sulfonamide Allergy Rash/Hives Verified 09/20/24 17:06 Antibiotics) Physical Exam Vitals: Vital Signs Temp Pulse Pulse Resp BP BP Pulse Ox 09/21/24 15:49 80 09/21/24 14:15 98.3 F 99 18 117/49 94 L 09/21/24 11:49 84 09/21/24 11:40 84 09/21/24 10:44 71 16 09/21/24 08:35 78 09/21/24 08:29 93 L 09/21/24 08:24 87 09/21/24 07:34 98.5 F 71 16 105/64 95 09/21/24 06:57 93 14 114/68 96 09/21/24 05:13 90 16 86/56 97 09/21/24 02:09 97.7 F 115 H 21 131/88 96 09/21/24 00:00 97.8 F 94 20 123/56 97 09/20/24 21:00 96 20 115/87 96 09/20/24 18:37 112 H 18 111/87 09/20/24 18:00 134 H 20 09/20/24 17:55 121 H 21 118/82 95 09/20/24 17:54 124 H 22 09/20/24 17:00 111 H 20 142/81 99 09/20/24 16:17 123 H 20 130/83 98 Intake and Output 09/21/24 09/21/24 09/21/24 06:59 14:59 22:59 Output Total 1000 Balance -1000 Output: Urine 1000 Other: Voiding Method External Catheter # Bowel Movements 1 Weight 86.183 kg Results 09/21/24 08:40 09/21/24 08:40 Cardiac Enzymes 09/20/24 09/20/24 09/21/24 Range/Units 16:06 16:06 08:40 AST 21 22 (14-36) U/L Troponin I <0.012 (0.000-0.034) ng/mL Coagulation 09/20/24 Range/Units 16:06 PT 11.7 (10.0-12.5) sec APTT 22.9 (22.0-30.0) sec CBC 09/20/24 09/21/24 Range/Units 16:06 08:40 WBC 13.0 H 18.1 H (3.8-10.6) k/uL RBC 4.10 3.78 L (3.80-5.40) m/uL Hgb 11.0 L 10.3 L (11.4-16.0) gm/dL Hct 35.9 33.1 L (34.0-46.0) % Plt Count 199 198 (150-450) k/uL Comprehensive Metabolic Panel 09/20/24 09/21/24 Range/Units 16:06 08:40 Sodium 144 139 (137-145) mmol/L Potassium 3.8 4.1 (3.5-5.1) mmol/L Chloride 107 103 (98-107) mmol/L Carbon Dioxide 29 33 H (22-30) mmol/L BUN 20 H 23 H (7-17) mg/dL Creatinine 0.93 1.02 (0.52-1.04) mg/dL Glucose 101 H 148 H (74-99) mg/dL Calcium 9.1 8.9 (8.4-10.2) mg/dL AST 21 22 (14-36) U/L ALT 14 18 (4-34) U/L Alkaline Phosphatase 128 H 143 H (38-126) U/L Total Protein 6.4 5.9 L (6.3-8.2) g/dL Albumin 3.6 3.2 L (3.5-5.0) g/dL Current Medications Generic Name Dose Route Start Last Admin Trade Name Freq PRN Reason Stop Dose Admin Al Hydroxide/Mg Hydroxide 30 ml 09/21/24 16:00 Mag Hydrox/Al Hydrox/Simeth 30 Ml Cup PO 09/21/24 20:01 Q4HR GISELE Albuterol/Ipratropium 3 ml 09/20/24 18:18 Ipratropium-Albuterol 3 Ml Neb INHALATION RT-Q2H PRN Shortness Of Breath Or Wheezing Albuterol/Ipratropium 3 ml 09/21/24 08:00 09/21/24 15:48 Ipratropium-Albuterol 3 Ml Neb INHALATION 3 ml RT-QID GISELE Administration Apixaban 5 mg 09/20/24 21:00 09/21/24 08:17 Apixaban 5 Mg Tab PO 5 mg BID GISELE Administration Protocol Aspirin 81 mg 09/22/24 09:00 Aspirin 81 Mg PO DAILY GISELE Azithromycin 500 mg 09/20/24 18:30 09/21/24 08:59 Azithromycin 500 Mg Tab PO 09/22/24 09:01 500 mg DAILY GISELE Administration Protocol Budesonide/Formoterol Fumarate 2 puff 09/21/24 08:00 09/21/24 08:23 Symbicort 160-4.5 Mcg Inhaler INHALATION 2 puff RT-BID GISELE Administration Bupropion HCl 300 mg 09/21/24 12:45 09/21/24 13:59 Bupropion Xl 300 Mg Tab.Er.24h PO 300 mg DAILY GISELE Administration Donepezil HCl 5 mg 09/21/24 21:00 Donepezil 5 Mg Tab PO HS GISELE Furosemide 40 mg 09/21/24 10:15 09/21/24 10:32 Furosemide 10 Mg/Ml 4 Ml Vial IV 40 mg DAILY GISELE Administration Levothyroxine Sodium 50 mcg 09/21/24 06:30 09/21/24 08:17 Levothyroxine 50 Mcg Tab PO 50 mcg DAILY@0630 GISELE Administration Methylprednisolone Sodium Succinate 60 mg 09/21/24 10:15 09/21/24 15:23 Methylprednisolone Sod Succi 125 Mg/2 Ml Vial IV 60 mg Q8HR GISELE Administration Metoprolol Tartrate 25 mg 09/21/24 09:00 09/21/24 08:17 Metoprolol Tartrate 25 Mg Tab PO 25 mg BID GISELE Administration Naloxone HCl 0.2 mg 09/20/24 18:18 Naloxone 0.4 Mg/Ml 1 Ml Vial IVP Q2M PRN Opioid Reversal Nicotine 1 patch 09/21/24 12:15 09/21/24 13:59 Nicotine 14mg/24hr Patch TRANSDERM Not Given DAILY GISELE Non-Formulary Medication 10 mg 09/21/24 21:00 Rosuvastatin PO HS GISELE Nystatin 1 applic 09/21/24 12:45 09/21/24 13:59 Nystatin 100,000 Unit/Gm Powd 15 Gm TOPICAL 1 applic TID GISELE Administration Protocol Pantoprazole Sodium 40 mg 09/21/24 07:30 09/21/24 08:17 Pantoprazole 40 Mg Tablet PO 40 mg AC-BRKFST GISELE Administration Polyethylene Glycol 17 gm 09/21/24 12:45 09/21/24 13:54 Polyethylene Glycol 3350 17 Gm Powd.Pack PO Not Given DAILY GISELE Quetiapine Fumarate 200 mg 09/21/24 02:00 09/21/24 02:07 Quetiapine 100 Mg Tab PO 200 mg HS GISELE Administration Sertraline HCl 100 mg 09/21/24 21:00 Sertraline 100 Mg Tab PO HS GISELE Sodium Chloride 2 spray 09/21/24 10:05 Sodium Chloride 0.65% Nasal [place] 44 Ml Btl NASAL QID PRN Sinus Symptoms Spironolactone 25 mg 09/21/24 09:00 09/21/24 08:17 Spironolactone 25 Mg Tab PO 25 mg DAILY GISELE Administration Intake and Output 09/21/24 09/21/24 09/21/24 06:59 14:59 22:59 Output Total 1000 Balance -1000 Output: Urine 1000 Other: Voiding Method External Catheter # Bowel Movements 1 Weight 86.183 kg Patient Weight 09/22/24 06:59 Weight 86.183 kg 09/21/24 08:40 09/21/24 08:40
[2024-09-21 16:31] LABS: % Iron Saturation 5.04 (12.00-45.00)
[2024-09-21] MEDS: MAG HYDROX/AL HYDROX/SIMETH 30 ML CUP PO SCH (16:33)
[2024-09-21] MEDS: SERTRALINE 100 MG TAB PO SCH (21:37)
[2024-09-21] MEDS: NON FORMULARY DRUG (Rosuvastatin 10 MG Tablet) PO SCH (21:47)
[2024-09-21] MEDS: DONEPEZIL 5 MG TAB PO SCH (22:15)
[2024-09-21] MEDS: CALCIUM CARBONATE 500 MG CHEWABLE PO PRN (22:16)
[2024-09-22 08:30] LABS: HCT 32.8 % (37.2-46.3); HGB 10.2 g/dL (12.0-15.0); MCH 26.9 pg (27.0-32.0); MCHC 31.1 g/dL (32.0-37.0); MCV 86.5 FL (80.0-97.0); Mean Platelet Volume 11.9 FL (9.5-12.2); NRBC Per 100 WBC 0 X 10*3/uL (0.00-0.01); Platelet Count 219 X 10*3/uL (140-440); RBC 3.79 X 10*6/uL (4.10-5.20); RDW 14.6 % (11.5-14.5); WBC 20.29 X 10*3/uL (4.50-10.00)
[2024-09-22 08:37] LABS: ALT 16 U/L (8-44); AST 13 U/L (13-35); Albumin 3.8 g/dL (3.8-4.9); Albumin/Globulin Ratio 1.46 Ratio (1.60-3.17); Alkaline Phosphatase 156 U/L (41-126); BUN/Creat Ratio 25.64 Ratio (12.00-20.00); Blood Urea Nitrogen 28.2 mg/dL (9.0-27.0); Calcium 9.5 mg/dL (8.7-10.3); Carbon Dioxide 29.4 mmol/L (21.6-31.8); Chloride 99 mmol/L (96-109); Globulin 2.6 g/dL (1.6-3.3); Glucose 148 mg/dL (70-110); Magnesium 2.4 mg/dL (1.5-2.4); Potassium 4.6 mmol/L (3.5-5.5); Sodium 139 mmol/L (135-145); Total Bilirubin 0.4 mg/dL (0.3-1.2); Total Protein 6.4 g/dL (6.2-8.2)
[2024-09-22] MEDS: METOPROLOL TARTRATE 25 MG TAB PO SCH (09:53)
[2024-09-22] MEDS: SPIRONOLACTONE 25 MG TAB PO SCH (09:53)
[2024-09-22] MEDS: ASPIRIN 81 MG PO SCH (09:53)
[2024-09-22] MEDS ORDERED: AZITHROMYCIN 500 MG TAB PO SCH (10:30)
[2024-09-22] MEDS: MAG HYDROX/AL HYDROX/SIMETH 30 ML, HYOSCYAMINE ELIXIR 10 ML, LIDOCAINE VISCOUS 2% 10 ML PO ONE (11:11)
[2024-09-22] MEDS: diphenhydrAMINE 50 MG/ML 1 ML VIAL IVP STA (12:07)
[2024-09-22] MEDS: PROCHLORPERAZINE INJ 10 MG/2 ML VIAL IVP STA (12:07)
[2024-09-22] MEDS: KETOROLAC 15 MG/ML 1 ML VIAL IVP STA (12:08)
--- NOTE | 2024-09-22 12:36 | P.PN ---
Subjective Progress Note Date: 09/22/24 HISTORY OF PRESENTING ILLNESS 70-year-old female with past medical history of persistent atrial fibrillation, COPD, tobacco smoker, prior history of alcoholic liver disease, TIA, stroke in 2006, cardiac catheterization 2012. This time she presents the hospital because of increased worsening shortness of breath. Admission chest x-ray shows congestion NT-proBNP was elevated at 4000, creatinine 0.9, BUN 20, hemoglobin 11 magnesium 1.7. ECG shows atrial fibrillation with a heart rate in high 90s. Patient denies any chest pain. 09/22/24 Patient is seen and examined. She states her breathing is better. She does have some chest pain on the right lower chest area. She continues to have mild lower extremity edema. She has been maintained on IV Lasix 40 mg daily. Heart rate has been on the tacky side running between 80 and 118. Patient does go tachycardic with activity. Blood pressure 103/52, pulse ox 98% on room air. Repeat blood work reveals WBC 20.2, hemoglobin 10.2. Potassium 4.6, BUN 28 creatinine 1.1. Echocardiogram is pending. Repeat chest x-ray is ordered for tomorrow by pulmonary medicine. PHYSICAL EXAMINATION Vital signs reviewed. Head: Normocephalic. Eyes: Sclerae nonicteric. Neck: Brisk carotid upstroke, no jugular venous distention. Lungs: Mild crackles audible Heart: Irregularly irregular pulse, mild systolic murmur audible Abdomen: Soft nontender, positive bowel sounds. Extremities: Mild pitting edema Neuro: Alert, oritented, no focal deficits. Detailed neuro exam was not performed. ASSESSMENT Acute on chronic hypoxic respiratory failure Acute HFpEF exacerbation COPD Active tobacco smoker Prior history of TIA/CVA PLAN Obtain updated echocardiogram Continue aspirin 81 mg, Eliquis 5 mg twice daily, rosuvastatin 10 mg at bedtime Continue Lasix 40 mg IV daily. Decrease Aldactone to 12.5 mg daily Metoprolol 25 mg increased to 3 times daily Monitor MARY, daily weights, electrolytes and renal function Nurse practitioner note has been reviewed, I agree with documented findings and plan of care. Patient was seen and examined. Objective - Vital Signs Vital signs: Vital Signs Temp 98.1 F 09/22/24 07:46 Pulse 84 09/22/24 08:28 Resp 16 09/22/24 07:46 BP 103/52 09/22/24 07:46 Pulse Ox 98 09/22/24 07:46 FiO2 Intake & Output 09/21/24 09/22/24 09/22/24 18:59 06:59 18:59 Output Total 1000 Balance -1000 Weight 86.183 kg Output: Urine 1000 Other: Voiding Method External Catheter # Bowel Movements 1 - Labs CBC & Chem 7: 09/22/24 03:38 09/22/24 03:38 Labs: Abnormal Lab Results - Last 24 Hours (Table) 09/21/24 09/21/24 09/21/24 Range/Units 08:40 08:40 08:40 WBC 18.1 H (3.8-10.6) k/uL RBC 3.78 L (3.80-5.40) m/uL Hgb 10.3 L (11.4-16.0) gm/dL Hct 33.1 L (34.0-46.0) % MCH (27.0-32.0) pg MCHC (32.0-37.0) g/dL RDW (11.5-14.5) % Carbon Dioxide (22-30) mmol/L BUN (7-17) mg/dL Glucose (74-99) mg/dL Iron 21 L (50-170) UG/DL % Saturation 5.04 L (12.00-45.00) Alkaline Phosphatase (38-126) U/L Total Protein (6.3-8.2) g/dL Albumin (3.5-5.0) g/dL Procalcitonin 0.63 H (0.02-0.50) ng/mL 09/21/24 09/22/24 Range/Units 08:40 03:38 WBC 20.29 H (3.8-10.6) k/uL RBC 3.79 L (3.80-5.40) m/uL Hgb 10.2 L (11.4-16.0) gm/dL Hct 32.8 L (34.0-46.0) % MCH 26.9 L (27.0-32.0) pg MCHC 31.1 L (32.0-37.0) g/dL RDW 14.6 H (11.5-14.5) % Carbon Dioxide 33 H (22-30) mmol/L BUN 23 H (7-17) mg/dL Glucose 148 H (74-99) mg/dL Iron (50-170) UG/DL % Saturation (12.00-45.00) Alkaline Phosphatase 143 H (38-126) U/L Total Protein 5.9 L (6.3-8.2) g/dL Albumin 3.2 L (3.5-5.0) g/dL Procalcitonin (0.02-0.50) ng/mL Microbiology - Last 24 Hours (Table) 09/20/24 16:35 Blood Culture - Preliminary Blood 09/21/24 19:19 Gram Stain - Preliminary Sputum
--- NOTE | 2024-09-22 13:07 | P.PN ---
Subjective Progress Note Date: 09/22/24 Hospital course: Patient is a pleasant 73-year-old female with a past medical history of CAD status post stenting, chronic atrial fibrillation on anticoagulation with Eliquis, hypertension, hyperlipidemia, chronic diastolic heart failure, COPD not home oxygen dependent, pulmonary hypertension, hypothyroidism, multiple TIAs and previous CVA, hypothyroidism, nicotine dependence and dementia with mild to moderate memory impairment (son Elpidio is her legal guardian). Presented to the hospital with a chief complaint of shortness of breath and acute respiratory failure. Discussed with PCP, Dr. Quispe who reports patient's symptoms initially started on 09/16/2024 and she was started on a 5-day course of Zithromax completing last dose 09/20/2024. He reports on Sunday her shortness of breath increased but she was maintaining her SpO2 in the 90s and was started on prednisone. He reports during follow-up phone call and 09/20/2024 he noted patient to have increased conversational dyspnea and sent home care nurse out to patient's home to assess and patient was found to be in respiratory distress with tachypneic respirations and SpO2 in the 60s so EMS was called and patient was transferred to our facility. Upon arrival to our facility patient underwent evaluation in the emergency department. Vital signs upon arrival show blood pressure 118/89, heart rate 42, respiratory rate 24, temp 97.1 F, and SpO2 of 95% on aerosol mask. EKG completed showing atrial fibrillation with a rapid ventricular rate of 107 bpm. Chest x-ray completed showing cardiomegaly and pulmonary vascular congestion with small right pleural effusion consistent with mild CHF exacerbation. Labs completed and reviewed. CBC showing leukocytosis with WBC count of 13.0 and normocytic anemia with hemoglobin of 11.0. BMP showing mild prerenal azotemia with BUN of 20 otherwise normal findings. Blood glucose 101. Lactic acid was 1.7. Magnesium slightly low at 1.7. Liver profile showing elevated alkaline phosphatase of 128. Troponin was negative at less than 0.012 and proBNP was 4170. Patient admitted under our services for acute hypoxic respiratory failure. Pulmonology and cardiology were consulted. Physical exam: Patient seen and fully evaluated at bedside this morning. She reports continued shortness of breath and productive cough of clear thick sputum. She denies having any headache, lightheadedness, dizziness, palpitations, or any other complaints at this time. RN patient had episode of atrial fibrillation with RVR with rates up to 160s overnight. Currently with controlled ventricular rate. Vital signs reviewed and stable. General: Nontoxic, no distress and appears stated age. Derm: Skin warm and dry, normal coloration for ethnicity. Head: Atraumatic, normocephalic and symmetric. Eyes: EOM's intact, no lid lag, and anicteric sclera Mouth: no lip lesions, mucus membranes moist Cardiovascular: Irregularly irregular, systolic murmur, positive posterior tibial pulses bilaterally, and cap refill < 2 seconds. Lungs: Respirations even, regular, and unlabored on room air this morning. Lungsdiminished with diffuse expiratory wheezes throughout. Abdominal: soft, nontender to palpation, no guarding, no appreciable organomegaly Ext: Movement and sensation intact. No gross muscle atrophy, no edema, no contractures. 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 Neuro: Speech clear, face symmetrical and CN II-XII grossly intact with no noted focal neuro deficits Psych: Alert and oriented to person, place, time, and situation. Slightly poor historian. Appropriate and pleasant affect. Assessment and Plan of Care: Acute respiratory failure with hypoxia and hypercarbia, multifactorial COPD with acute exacerbation Acute on chronic diastolic heart failure exacerbation Leukocytosis, believed to be reactive from steroids -Consult to Pulmonology, appreciate recommendations -Oxygenation to be administered and titrated as needed to maintain SPO2 equal to or greater than 92% -Telemetry monitoring. -Monitor pulse-oximetry -Duonebs scheduled 4 times daily and as needed for SOB and/or wheezing -Incentive Spirometry -Steroids: Solu-Medrol 60 mg IVP every 8 hours -Lasix 40 mg IVP daily -Antibiotics: Continue Azithromycin 500 mg daily (day # 3 of 3). -Obtain Echocardiogram, previous echo completed 08/26/2021 was reviewed revealing preserved EF of 55 to 60% -Strict I's and O's and daily weights. Continue close monitoring of electrolytes and renal function while on IV diuresis. -Continue aspirin 81 mg daily, Eliquis 5 mg twice daily, metoprolol 25 mg 3 times daily, rosuvastatin 10 mg nightly, and Aldactone 12.5 mg daily. Atrial fibrillation with RVR, currently maintaining controlled ventricular rate. Continue Eliquis 5 mg twice daily and metoprolol dose was increased to 25 mg 3 times daily. Telemetry monitoring. Hypertension: Continue daily medication regimen with metoprolol 25 mg 3 times daily and Aldactone 12.5 mg daily. Hyperlipidemia: Continue rosuvastatin 10 mg nightly. Hypothyroidism: Continue levothyroxine 50 mcg daily. History of multiple TIAs and CVA: Continue aspirin 81 mg daily and rosuvastatin 10 mg daily. Dementia with mild to moderate memory/cognitive impairment: Continue Aricept 5 mg daily and provide safe and supportive care with assistance and redirection as needed. Fall precautions in place. Data and imaging reviewed: -Morning labs reviewed. CBC showing leukocytosis with WBC count of 20.29 and stable normocytic anemia with hemoglobin of 10.2. BMP showing mild prerenal az otemia with BUN of 28.2. Blood glucose 148. Magnesium 2.4. Liver profile showing elevated alkaline phosphatase of 156 otherwise normal findings. Procalcitonin slightly elevated at 0.63. -Vital signs reviewed. Blood pressure 103/52, heart rate 80, respiratory rate 16, temp 98.1 F, and SpO2 of 98% on room air. CODE STATUS: Full code DVT prophylaxis: Sarahqusarthak Discussed with: Patient, RN, and patient's PCP Dr. Quispe Anticipated discharge date: Pending clinical course Anticipated discharge place: Home Patient was seen independently by Nurse Pracitioner. This document was prepared using [employer] dictation software. Please allow for errors in grid trimmer, while rare they do occur. Evaristo Sandhu NP rendered care for this patient independently, reviewed the findings and plan as documented in the note above and agree with plan. I did not physically speak with or examine the patient on this date. Objective - Vital Signs Vital signs: Vital Signs Temp 98.1 F 09/22/24 07:46 Pulse 80 09/22/24 08:15 Resp 16 09/22/24 07:46 BP 103/52 09/22/24 07:46 Pulse Ox 98 09/22/24 07:46 FiO2 Intake & Output 09/21/24 09/22/24 09/22/24 18:59 06:59 18:59 Output Total 1000 Balance -1000 Weight 86.183 kg Output: Urine 1000 Other: Voiding Method External Catheter # Bowel Movements 1 - Labs CBC & Chem 7: 09/22/24 03:38 09/22/24 03:38 Labs: Abnormal Lab Results - Last 24 Hours (Table) 09/21/24 09/21/24 09/21/24 Range/Units 08:40 08:40 08:40 WBC 18.1 H (3.8-10.6) k/uL RBC 3.78 L (3.80-5.40) m/uL Hgb 10.3 L (11.4-16.0) gm/dL Hct 33.1 L (34.0-46.0) % Carbon Dioxide (22-30) mmol/L BUN (7-17) mg/dL Glucose (74-99) mg/dL Iron 21 L (50-170) UG/DL % Saturation 5.04 L (12.00-45.00) Alkaline Phosphatase (38-126) U/L Total Protein (6.3-8.2) g/dL Albumin (3.5-5.0) g/dL Procalcitonin 0.63 H (0.02-0.50) ng/mL 09/21/24 Range/Units 08:40 WBC (3.8-10.6) k/uL RBC (3.80-5.40) m/uL Hgb (11.4-16.0) gm/dL Hct (34.0-46.0) % Carbon Dioxide 33 H (22-30) mmol/L BUN 23 H (7-17) mg/dL Glucose 148 H (74-99) mg/dL Iron (50-170) UG/DL % Saturation (12.00-45.00) Alkaline Phosphatase 143 H (38-126) U/L Total Protein 5.9 L (6.3-8.2) g/dL Albumin 3.2 L (3.5-5.0) g/dL Procalcitonin (0.02-0.50) ng/mL Microbiology - Last 24 Hours (Table) 09/20/24 16:35 Blood Culture - Preliminary Blood 09/21/24 19:19 Gram Stain - Preliminary Sputum
--- NOTE | 2024-09-22 13:48 | P.PN ---
Subjective Progress Note Date: 09/22/24 73-year-old female patient, being seen in consultation for shortness of breath. The patient is known to have COPD and she is a chronic smoker continues to smoke around 1 pack of cigarettes a day. She has chronic medical problems including fibromyalgia, dementia, previous CVA/TIA hypertension, hyperlipidemia, irritable bowel disease, and previous history of atrial fibrillation. She is oxygen dependent. She has been utilizing albuterol rescue inhaler only on an as-needed basis. She comes into the emergency department for worsening shortness of breath and chest pain, central, sharp and stabbing. No diaphoresis. No hemoptysis. No pleurisy. Upon arrival to the emergency, the patient was hypoxi c and was placed on 5 L of oxygen by nasal cannula. And the patient was hospitalized for an acute CF exacerbation. Chest x-ray was reviewed and shows COPD along with cardiomegaly and increased pulm vessel markings consistent with a component of CHF and a small right-sided pleural effusion. The white cell count is currently at 18.12 with a hemoglobin 10.3 and a platelet count of 198. Normal coagulation profile. Normal renal function. Normal electrolytes with serum bicarb of 33, proBNP level is 4170 and troponins are negative and LFTs are essentially within normal limits. The patient's EKG is consistent with atrial fibrillation. Noted the patient is already on anticoagulants with Eliquis 5 mg p.o. twice a day. She was started on Symbicort, DuoNebs about treatments [id number] and I started the patient on IV Solu-Medrol today as the patient was found to be actively bronchospastic and wheezy. She is also on Lasix 40 mg IV daily and Aldactone. Previous low-dose CAT scan of the chest from 02/28/2024 showed some nonspecific stable bilateral pulmonary nodules. Those are being monitored. Last echocardiogram was from 2020 and back then the patient had a preserved LV function without any significant valvular abnormalities. She is currently weaned down to 2 L with a pulse ox of 93%. Hemodynamically stable. The patient is seen today September 22, 2024 in follow-up on the regular medical floor. She is currently resting comfortably in bed. Awake and alert in no acute distress. Maintaining O2 saturations in the 90s on room air. She remains on IV diuretics. Completed a course of antibiotics. NicoDerm patch in place. Remains on bronchodilators, steroids. White count 20.2. Hemoglobin 10.2. Platelets 219. Sodium 139. Potassium 4.6. Bicarb 29. BUN 28. Creatinine 1.1. Glucose 148. Procalcitonin 0.63. Blood and sputum pending. Objective - Vital Signs Vital signs: Vital Signs Temp 98.1 F 09/22/24 07:46 Pulse 80 09/22/24 12:48 Resp 16 09/22/24 07:46 BP 103/52 09/22/24 07:46 Pulse Ox 98 09/22/24 07:46 FiO2 Intake & Output 09/21/24 09/22/24 09/22/24 18:59 06:59 18:59 Output Total 1000 Balance -1000 Weight 86.183 kg 85.2 kg Output: Urine 1000 Other: Voiding Method External Catheter Incontinent # Bowel Movements 1 - Exam GENERAL EXAM: Alert, pleasant 73-year-old female, on room air, comfortable in no apparent distress. HEAD: Normocephalic. EYES: Normal reaction of pupils, equal size. NOSE: Clear with pink turbinates. THROAT: No erythema or exudates. NECK: No masses, no JVD. CHEST: No chest wall deformity. LUNGS: Equal air entry with few scattered rhonchi, wheezing. CVS: S1 and S2 normal with no audible murmur, regular rhythm. ABDOMEN: No hepatosplenomegaly, normal bowel sounds, no guarding or rigidity. SPINE: No scoliosis or deformity SKIN: No rashes CENTRAL NERVOUS SYSTEM: No focal deficits, tone is normal in all 4 extremities. EXTREMITIES: There is no peripheral edema. No clubbing, no cyanosis. Peripheral pulses are intact. - Labs CBC & Chem 7: 09/22/24 03:38 09/22/24 03:38 Labs: Abnormal Lab Results - Last 24 Hours (Table) 09/21/24 09/21/24 09/22/24 Range/Units 08:40 08:40 03:38 WBC 20.29 H (4.50-10.00) X 10*3/uL RBC 3.79 L (4.10-5.20) X 10*6/uL Hgb 10.2 L (12.0-15.0) g/dL Hct 32.8 L (37.2-46.3) % MCH 26.9 L (27.0-32.0) pg MCHC 31.1 L (32.0-37.0) g/dL RDW 14.6 H (11.5-14.5) % BUN (9.0-27.0) mg/dL Est GFR (CKD-EPI) (>=60) BUN/Creatinine Ratio (12.00-20.00) Ratio Glucose (70-110) mg/dL Iron 21 L (50-170) UG/DL % Saturation 5.04 L (12.00-45.00) Alkaline Phosphatase (41-126) U/L Albumin/Globulin Ratio (1.60-3.17) Ratio Procalcitonin 0.63 H (0.02-0.50) ng/mL 09/22/24 Range/Units 03:38 WBC (4.50-10.00) X 10*3/uL RBC (4.10-5.20) X 10*6/uL Hgb (12.0-15.0) g/dL Hct (37.2-46.3) % MCH (27.0-32.0) pg MCHC (32.0-37.0) g/dL RDW (11.5-14.5) % BUN 28.2 H (9.0-27.0) mg/dL Est GFR (CKD-EPI) 53 L (>=60) BUN/Creatinine Ratio 25.64 H (12.00-20.00) Ratio Glucose 148 H (70-110) mg/dL Iron (50-170) UG/DL % Saturation (12.00-45.00) Alkaline Phosphatase 156 H (41-126) U/L Albumin/Globulin Ratio 1.46 L (1.60-3.17) Ratio Procalcitonin (0.02-0.50) ng/mL Microbiology - Last 24 Hours (Table) 09/21/24 19:19 Gram Stain - Preliminary Sputum Sputum Culture - Preliminary 09/20/24 16:35 Blood Culture - Preliminary Blood Assessment and Plan Assessment: Acute exacerbation of COPD along with a component of CHF. She is a chronic smoker and her COPD is exacerbated. At the same time, the chest x-ray showed increased pulm vessel markings and elevated proBNP level on her blood work. There is a component of fluid overload in addition and the patient is currently on IV Lasix. She was started on bronchodilators. She is on DuoNeb, Symbicort and IV Solu-Medrol will be also started. Procalcitonin 0.63. Completed azithromycin COPD, no maintenance inhalers, utilizing albuterol rescue inhaler on an as- needed basis, several times a day Chronic smoker, 1 pack of day Chronic dyspnea secondary to above Chronic atrial fibrillation Atypical chest pain, cardiology on the case Fibromyalgia Dementia Previous history of CVA/TIA Hypertension Hyperlipidemia Peripheral neuropathy IBS Difficulty with mobility and gait and the patient walks with the help of a walker and the patient has chronic neuropathy Acute leukocytosis Plan: The patient was seen and evaluated Labs and medications reviewed Continue bronchodilators, steroids Stable and on room air Follow-up chest x-ray in a.m. Completed antibiotics Continued on IV diuretics Educated regarding smoking cessation NicoDerm patch in place We will continue to follow I have personally seen and examined the patient, performed the documentation and the assessment and plan as written. Number of minutes spent on the visit: 10 Dictation was produced using [employer] dictation software. Please excuse any grammatical, word or spelling errors.
[2024-09-22] MEDS: IBUPROFEN 600 MG TAB PO PRN (22:38)
[2024-09-23 08:22] LABS: HCT 32.8 % (37.2-46.3); MCH 27.2 pg (27.0-32.0); MCHC 30.5 g/dL (32.0-37.0); MCV 89.1 FL (80.0-97.0); Mean Platelet Volume 12.5 FL (9.5-12.2); NRBC Per 100 WBC 0 X 10*3/uL (0.00-0.01); Platelet Count 189 X 10*3/uL (140-440); RBC 3.68 X 10*6/uL (4.10-5.20); RDW 14.8 % (11.5-14.5); WBC 15.81 X 10*3/uL (4.50-10.00)
[2024-09-23 09:31] LABS: Blood Urea Nitrogen 42.8 mg/dL (9.0-27.0); Calcium 9.4 mg/dL (8.7-10.3); Carbon Dioxide 27.1 mmol/L (21.6-31.8); Chloride 99 mmol/L (96-109); Glucose 150 mg/dL (70-110); Magnesium 2.4 mg/dL (1.5-2.4); Potassium 4.8 mmol/L (3.5-5.5); Sodium 137 mmol/L (135-145)
--- NOTE | 2024-09-23 10:55 | XR ---
EXAMINATION TYPE: XR chest 1V portable DATE OF EXAM: 09/23/2024 7:38 AM COMPARISON: 09/20/2024 CLINICAL INDICATION: Female, 73 years old with history of Shortness of breath, TECHNIQUE: XR chest 1V portable view(s) obtained. FINDINGS: The heart size is prominent. The pulmonary vasculature is improved from comparison. The lungs are clear. IMPRESSION: 1. Cardiomegaly. 2. Volume overload appears to be resolving [facility], , 09/23/2024 10:53 AM
--- NOTE | 2024-09-23 11:21 | P.PN ---
Subjective Progress Note Date: 09/23/24 HISTORY OF PRESENTING ILLNESS 70-year-old female with past medical history of persistent atrial fibrillation, COPD, tobacco smoker, prior history of alcoholic liver disease, TIA, stroke in 2006, cardiac catheterization 2012. This time she presents the hospital because of increased worsening shortness of breath. Admission chest x-ray shows congestion NT-proBNP was elevated at 4000, creatinine 0.9, BUN 20, hemoglobin 11 magnesium 1.7. ECG shows atrial fibrillation with a heart rate in high 90s. Patient denies any chest pain. 09/22/24 Patient is seen and examined. She states her breathing is better. She does have some chest pain on the right lower chest area. She continues to have mild lower extremity edema. She has been maintained on IV Lasix 40 mg daily. Heart rate has been on the tacky side running between 80 and 118. Patient does go tachycardic with activity. Blood pressure 103/52, pulse ox 98% on room air. Repeat blood work reveals WBC 20.2, hemoglobin 10.2. Potassium 4.6, BUN 28 creatinine 1.1. Echocardiogram is pending. Repeat chest x-ray is ordered for tomorrow by pulmonary medicine. 09/23/2024 Patient is seen and examined. She states her breathing is a little bit better. Her heart rate is improved from yesterday. Heart rate in the 90s, blood pressure 147/74. She does have a cough and she continues to have some wheezing. She is on IV Lasix 40 mg daily. Echocardiogram report is pending. PHYSICAL EXAMINATION Vital signs reviewed. Head: Normocephalic. Eyes: Sclerae nonicteric. Neck: Brisk carotid upstroke, no jugular venous distention. Lungs: Mild crackles audible, mild wheezing expiratory Heart: Irregularly irregular pulse, mild systolic murmur audible Abdomen: Soft nontender, positive bowel sounds. Extremities: Mild pitting edema Neuro: Alert, oritented, no focal deficits. Detailed neuro exam was not performed. ASSESSMENT Acute on chronic hypoxic respiratory failure Acute HFpEF exacerbation COPD Active tobacco smoker Prior history of TIA/CVA PLAN Obtain echocardiogram report Continue aspirin 81 mg, Eliquis 5 mg twice daily, rosuvastatin 10 mg at bedtime Continue Lasix 40 mg IV daily for another 24 hours. Decrease Aldactone to 12.5 mg daily Metoprolol 25 mg increased to 3 times daily Monitor MARY, daily weights, electrolytes and renal function Plan for discharge home tomorrow. Nurse practitioner note has been reviewed, I agree with documented findings and plan of care. Patient was seen and examined. Objective - Vital Signs Vital signs: Vital Signs Temp 97.9 F 09/23/24 07:27 Pulse 96 09/23/24 08:51 Resp 15 09/23/24 07:27 BP 144/93 09/23/24 07:27 Pulse Ox 93 L 09/23/24 07:27 FiO2 Intake & Output 09/22/24 09/23/24 09/23/24 18:59 06:59 18:59 Weight 81 kg Other: Voiding Method Incontinent Incontinent External Catheter - Labs CBC & Chem 7: 09/23/24 03:03 09/23/24 03:03 Labs: Abnormal Lab Results - Last 24 Hours (Table) 09/23/24 Range/Units 03:03 WBC 15.81 H (4.50-10.00) X 10*3/uL RBC 3.68 L (4.10-5.20) X 10*6/uL Hgb 10.0 L (12.0-15.0) g/dL Hct 32.8 L (37.2-46.3) % MCHC 30.5 L (32.0-37.0) g/dL RDW 14.8 H (11.5-14.5) % MPV 12.5 H (9.5-12.2) FL Microbiology - Last 24 Hours (Table) 09/21/24 19:19 Gram Stain - Final Sputum Sputum Culture - Final 09/20/24 16:35 Blood Culture - Preliminary Blood
--- NOTE | 2024-09-23 12:09 | CA ---
Transthoracic Echo Report Name: Jessie Eddy Age: 73 Gender: F : 1950 Exam Date: 09/23/2024 08:08 Exam Location: [place] [facility] Ht (in): 65 Wt (lb): 190 Ordering Physician: April Flores MD Attending/Referring Phys: Airborne Sensor Specialist Amrita Price RDCS Procedure CPT: Indications: Suspected new presentation of CHF Cardiac Hx: A-FIB Technical Quality: Fair Contrast 1: Total Dose (mL): Contrast 2: Total Dose (mL): MEASUREMENTS (Male / Female) Normal Values 2D ECHO LV Diastolic Diameter PLAX 4.7 cm 4.2 - 5.9 / 3.9 - 5.3 cm LV Systolic Diameter PLAX 3.5 cm IVS Diastolic Thickness 1.1 cm 0.6 - 1.0 / 0.6 - 0.9 cm LVPW Diastolic Thickness 1.4 cm 0.6 - 1.0 / 0.6 - 0.9 cm LV Relative Wall Thickness 0.5 RV Internal Dim ED PLAX 2.7 cm LVOT Diameter 1.6 cm LA Systolic Diameter LX 1.4 cm 3.0 - 4.0 / 2.7 - 3.8 cm LV Diastolic Volume MOD BP 39.4 cm??? 67 - 155 / 56 - 104 cm??? LV Systolic Volume MOD BP 19.4 cm??? 22 - 58 / 19 - 49 cm??? LV Ejection Fraction MOD BP 50.7 % >= 55 % LV Cardiac Index MOD BP 949.7 cm???/min???m??? LV Diastolic Volume MOD 4C 33.7 cm??? LV Systolic Volume MOD 4C 17.3 cm??? LV Ejection Fraction MOD 4C 48.6 % LV Cardiac Index MOD 4C 779.5 cm???/min???m??? LV Diastolic Length 4C 6.2 cm LV Systolic Length 4C 5.1 cm LV Diastolic Volume MOD 2C 44.1 cm??? LV Systolic Volume MOD 2C 19.6 cm??? LV Ejection Fraction MOD 2C 55.5 % LV Cardiac Index MOD 2C 1165.4 cm???/min???m??? LV Diastolic Length 2C 6.5 cm LV Systolic Length 2C 5.8 cm LA Volume 72.3 cm??? 18 - 58 / 22 - 52 cm??? LA Volume Index 35.8 cm???/m??? 16 - 28 cm???/m??? M-MODE Aortic Root Diameter MM 2.7 cm LA Systolic Diameter MM 4.3 cm LA Ao Ratio MM 1.6 AV Cusp Separation MM 1.3 cm DOPPLER AV Peak Velocity 185.7 cm/s AV Peak Gradient 13.8 mmHg AV Mean Velocity 131.2 cm/s AV Mean Gradient 7.6 mmHg AV Velocity Time Integral 43.0 cm LVOT Peak Velocity 83.6 cm/s LVOT Peak Gradient 2.8 mmHg LVOT Velocity Time Integral 21.5 cm LVOT Stroke Volume 44.8 cm??? LVOT Stroke Volume Index 23.2 ml/m??? LVOT Cardiac Index 2133.0 cm???/min???m??? AV Area Cont Eq vti 1.0 cm??? AV Area Cont Eq pk 0.9 cm??? MV Area PHT 2.9 cm??? Mitral E Point Velocity 175.5 cm/s Mitral A Point Velocity 0.9 cm/s Mitral E to A Ratio 191.2 MV Deceleration Time 260.2 ms TR Peak Velocity 321.1 cm/s TR Peak Gradient 41.2 mmHg Right Ventricular Systolic Press 50.3 mmHg FINDINGS Left Ventricle Left ventricular ejection fraction is estimated at 45-50 %. Mildly increased septal wall thickness. Moderately increased posterior wall thickness. Mildly decreased left ventricular ejection fraction. Right Ventricle Normal right ventricular size and function. Moderate pulmonary hypertension. Right Atrium Mild right atrial dilatation. Left Atrium Moderately increased left atrial volume. Mildly increased left atrial area. Mitral Valve Structurally normal mitral valve. Moderate mitral regurgitation. No mitral stenosis. Aortic Valve Trileaflet aortic valve. Diffuse thickening (sclerosis) of the aortic valve cusps without reduced excursion. No aortic regurgitation. Tricuspid Valve Structurally normal tricuspid valve. [id number] tricuspid regurgitation. No tricuspid stenosis. Pulmonic Valve Structurally normal pulmonic valve. Trace pulmonic regurgitation. No pulmonic regurgitation. Pericardium No pericardial or pleural effusion. Aorta Normal size aortic root and proximal ascending aorta. CONCLUSIONS The technically difficult study for interpretation Mildly impaired LV function with EF between 45 to 50% Moderate mitral regurgitation Aortic sclerosis with mild stenosis stenosis no regurgitation Moderate pulmonary hypertension Mild to moderate tricuspid regurgitation Previewed by: Dr. Rafael Chen MD (Electronically Signed) Final Date: 23 September 2024 12:08
--- NOTE | 2024-09-23 12:39 | P.PN ---
Subjective Progress Note Date: 09/23/24 73-year-old female patient, being seen in consultation for shortness of breath. The patient is known to have COPD and she is a chronic smoker continues to smoke around 1 pack of cigarettes a day. She has chronic medical problems including fibromyalgia, dementia, previous CVA/TIA hypertension, hyperlipidemia, irritable bowel disease, and previous history of atrial fibrillation. She is oxygen dependent. She has been utilizing albuterol rescue inhaler only on an as-needed basis. She comes into the emergency department for worsening shortness of breath and chest pain, central, sharp and stabbing. No diaphoresis. No hemoptysis. No pleurisy. Upon arrival to the emergency, the patient was hypoxi c and was placed on 5 L of oxygen by nasal cannula. And the patient was hospitalized for an acute CF exacerbation. Chest x-ray was reviewed and shows COPD along with cardiomegaly and increased pulm vessel markings consistent with a component of CHF and a small right-sided pleural effusion. The white cell count is currently at 18.12 with a hemoglobin 10.3 and a platelet count of 198. Normal coagulation profile. Normal renal function. Normal electrolytes with serum bicarb of 33, proBNP level is 4170 and troponins are negative and LFTs are essentially within normal limits. The patient's EKG is consistent with atrial fibrillation. Noted the patient is already on anticoagulants with Eliquis 5 mg p.o. twice a day. She was started on Symbicort, DuoNebs about treatments [id number] and I started the patient on IV Solu-Medrol today as the patient was found to be actively bronchospastic and wheezy. She is also on Lasix 40 mg IV daily and Aldactone. Previous low-dose CAT scan of the chest from 02/28/2024 showed some nonspecific stable bilateral pulmonary nodules. Those are being monitored. Last echocardiogram was from 2020 and back then the patient had a preserved LV function without any significant valvular abnormalities. She is currently weaned down to 2 L with a pulse ox of 93%. Hemodynamically stable. The patient is seen today September 22, 2024 in follow-up on the regular medical floor. She is currently resting comfortably in bed. Awake and alert in no acute distress. Maintaining O2 saturations in the 90s on room air. She remains on IV diuretics. Completed a course of antibiotics. NicoDerm patch in place. Remains on bronchodilators, steroids. White count 20.2. Hemoglobin 10.2. Platelets 219. Sodium 139. Potassium 4.6. Bicarb 29. BUN 28. Creatinine 1.1. Glucose 148. Procalcitonin 0.63. Blood and sputum pending. The patient is seen today September 23, 2024 in follow-up on the regular medical floor. She is currently resting comfortably in bed. Awake and alert in no acute distress. Maintaining good O2 saturations in the 90s on room air. She is afebrile. Hemodynamically stable. Procalcitonin was 0.63. She completed a course of antibiotics. She is continued on DuoNeb inhalations, Symbicort, Solu- Medrol. Chest x-ray reveals cardiomegaly. Fluid volume overload resolving. White count 15.8. Hemoglobin 10.0. Platelets 189. Sodium 137. Potassium 4.8. Bicarb 27. BUN 43. Creatinine 1.0. Glucose 150. Objective - Vital Signs Vital signs: Vital Signs Temp 97.9 F 09/23/24 07:27 Pulse 105 H 09/23/24 11:02 Resp 15 09/23/24 07:27 BP 147/74 09/23/24 11:02 Pulse Ox 95 09/23/24 11:01 FiO2 Intake & Output 09/22/24 09/23/24 09/23/24 18:59 06:59 18:59 Intake Total 118 Output Total 1000 Balance -882 Weight 81 kg Intake: Oral 118 Output: Urine 1000 Other: Voiding Method Incontinent Incontinent External Catheter # Voids 1 # Bowel Movements 2 - Exam GENERAL EXAM: Alert, 73-year-old female, on room air, in no apparent distress. HEAD: Normocephalic. EYES: Normal reaction of pupils, equal size. NOSE: Clear with pink turbinates. THROAT: No erythema or exudates. NECK: No masses, no JVD. CHEST: No chest wall deformity. LUNGS: Equal air entry with faint crackles in the bilateral bases. CVS: S1 and S2 normal with no audible murmur, regular rhythm. ABDOMEN: No hepatosplenomegaly, normal bowel sounds, no guarding or rigidity. SPINE: No scoliosis or deformity SKIN: No rashes CENTRAL NERVOUS SYSTEM: No focal deficits, tone is normal in all 4 extremities. EXTREMITIES: There is no peripheral edema. No clubbing, no cyanosis. Mariaelena pheral pulses are intact. - Labs CBC & Chem 7: 09/23/24 03:03 09/23/24 03:03 Labs: Abnormal Lab Results - Last 24 Hours (Table) 09/23/24 09/23/24 Range/Units 03:03 03:03 WBC 15.81 H (4.50-10.00) X 10*3/uL RBC 3.68 L (4.10-5.20) X 10*6/uL Hgb 10.0 L (12.0-15.0) g/dL Hct 32.8 L (37.2-46.3) % MCHC 30.5 L (32.0-37.0) g/dL RDW 14.8 H (11.5-14.5) % MPV 12.5 H (9.5-12.2) FL BUN 42.8 H (9.0-27.0) mg/dL Est GFR (CKD-EPI) 59 L (>=60) BUN/Creatinine Ratio 42.80 H (12.00-20.00) Ratio Glucose 150 H (70-110) mg/dL Microbiology - Last 24 Hours (Table) 09/21/24 19:19 Gram Stain - Final Sputum Sputum Culture - Final 09/20/24 16:35 Blood Culture - Preliminary Blood Assessment and Plan Assessment: Acute exacerbation of COPD along with a component of CHF. She is a chronic smok er and her COPD is exacerbated. At the same time, the chest x-ray showed increased pulm vessel markings and elevated proBNP level on her blood work. There is a component of fluid overload in addition and the patient is currently on IV Lasix. She was started on bronchodilators. She is on DuoNeb, Symbicort and IV Solu-Medrol. Procalcitonin 0.63. Completed azithromycin COPD, no maintenance inhalers, utilizing albuterol rescue inhaler on an as- needed basis, several times a day Chronic smoker, 1 pack of day Chronic dyspnea secondary to above Chronic atrial fibrillation Atypical chest pain, cardiology on the case Fibromyalgia Dementia Previous history of CVA/TIA Hypertension Hyperlipidemia Peripheral neuropathy IBS Difficulty with mobility and gait and the patient walks with the help of a walker and the patient has chronic neuropathy Acute leukocytosis Plan: The patient was seen and evaluated Chest x-ray, labs and medications reviewed Stable and on room air Completed antibiotics Educated regarding smoking cessation Cleared for discharge Complete a prednisone taper Continue her home pulmonary medications I have personally seen and examined the patient, performed the documentation and the assessment and plan as written. Number of minutes spent on the visit: 10 Dictation was produced using [employer] dictation software. Please excuse any grammatical, word or spelling errors.
--- NOTE | 2024-09-23 14:35 | P.PN ---
Subjective Progress Note Date: 09/23/24 Hospital course: Patient is a pleasant 73-year-old female with a past medical history of CAD status post stenting, chronic atrial fibrillation on anticoagulation with Eliquis, hypertension, hyperlipidemia, chronic diastolic heart failure, COPD not home oxygen dependent, pulmonary hypertension, hypothyroidism, multiple TIAs and previous CVA, hypothyroidism, nicotine dependence and dementia with mild to moderate memory impairment (son Elpidio is her legal guardian). Presented to the hospital with a chief complaint of shortness of breath and acute respiratory failure. Discussed with PCP, Dr. Quispe who reports patient's symptoms initially started on 09/16/2024 and she was started on a 5-day course of Zithromax completing last dose 09/20/2024. He reports on Sunday her shortness of breath increased but she was maintaining her SpO2 in the 90s and was started on prednisone. He reports during follow-up phone call and 09/20/2024 he noted patient to have increased conversational dyspnea and sent home care nurse out to patient's home to assess and patient was found to be in respiratory distress with tachypneic respirations and SpO2 in the 60s so EMS was called and patient was transferred to our facility. Upon arrival to our facility patient underwent evaluation in the emergency department. Vital signs upon arrival show blood pressure 118/89, heart rate 42, respiratory rate 24, temp 97.1 F, and SpO2 of 95% on aerosol mask. EKG completed showing atrial fibrillation with a rapid ventricular rate of 107 bpm. Chest x-ray completed showing cardiomegaly and pulmonary vascular congestion with small right pleural effusion consistent with mild CHF exacerbation. Labs completed and reviewed. CBC showing leukocytosis with WBC count of 13.0 and normocytic anemia with hemoglobin of 11.0. BMP showing mild prerenal azotemia with BUN of 20 otherwise normal findings. Blood glucose 101. Lactic acid was 1.7. Magnesium slightly low at 1.7. Liver profile showing elevated alkaline phosphatase of 128. Troponin was negative at less than 0.012 and proBNP was 4170. Patient admitted under our services for acute hypoxic respiratory failure. Pulmonology and cardiology were consulted. Physical exam: Patient seen and fully evaluated at bedside this morning. She reports continued shortness of breath and productive cough of clear thick sputum. She denies having any headache, lightheadedness, dizziness, palpitations, or any other complaints at this time. RN patient had episode of atrial fibrillation with RVR with rates up to 160s overnight. Currently with controlled ventricular rate. Vital signs reviewed and stable. General: Nontoxic, no distress and appears stated age. Derm: Skin warm and dry, normal coloration for ethnicity. Head: Atraumatic, normocephalic and symmetric. Eyes: EOM's intact, no lid lag, and anicteric sclera Mouth: no lip lesions, mucus membranes moist Cardiovascular: Irregularly irregular, systolic murmur, positive posterior tibial pulses bilaterally, and cap refill < 2 seconds. Lungs: Respirations even, regular, and unlabored on room air this morning. Lungsdiminished with diffuse expiratory wheezes throughout. Abdominal: soft, nontender to palpation, no guarding, no appreciable organomegaly Ext: Movement and sensation intact. No gross muscle atrophy, no edema, no contractures. 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 Neuro: Speech clear, face symmetrical and CN II-XII grossly intact with no noted focal neuro deficits Psych: Alert and oriented to person, place, time, and situation. Slightly poor historian. Appropriate and pleasant affect. Assessment and Plan of Care: Acute respiratory failure with hypoxia and hypercarbia, multifactorial COPD with acute exacerbation Acute on chronic diastolic heart failure exacerbation Leukocytosis, believed to be reactive from steroids -Pulmonology following, clearing patient from their perspective for discharge recommending patient be discharged on prednisone taper and follow-up outpatient follow-up in their office in 1 to 2 weeks. -Cardiology following and discussed with cardiac [employer]ISH [employer]ICAL INTERPRETER stating strategic partnership representative is recommending monitoring for an additional 24 hours with cardiac clearance for discharge likely tomorrow. -Patient successfully weaned off of oxygen and maintaining SpO2 on room air. Ambulatory pulse ox was completed. Patient 95% on room air at rest and 89% on room air with ambulation. -Echocardiogram completed showing a mildly impaired EF of 45 to 50%, moderate mitral regurgitation, aortic sclerosis with mild stenosis, moderate pulmonary hypertension, and mild to moderate tricuspid regurgitation. -Repeat morning chest x-ray completed and reviewed showing cardiomegaly with improvement of volume overload reported to be resolving. -Telemetry monitoring. -Monitor pulse-oximetry -Duonebs scheduled 4 times daily and as needed for SOB and/or wheezing -Incentive Spirometry -Steroids: Solu-Medrol 60 mg IVP every 8 hours -Lasix 40 mg IVP daily -Antibiotics: Completed 3-day course of azithromycin. -Continue aspirin 81 mg daily, Eliquis 5 mg twice daily, metoprolol 25 mg 3 times daily, rosuvastatin 10 mg nightly, and Aldactone 12.5 mg daily. Atrial fibrillation with RVR, currently maintaining controlled ventricular rate. Continue Eliquis 5 mg twice daily and metoprolol dose was increased to 25 mg 3 times daily. Telemetry monitoring. Hypertension: Continue daily medication regimen with metoprolol 25 mg 3 times daily and Aldactone 12.5 mg daily. Hyperlipidemia: Continue rosuvastatin 10 mg nightly. Hypothyroidism: Continue levothyroxine 50 mcg daily. History of multiple TIAs and CVA: Continue aspirin 81 mg daily and rosuvastatin 10 mg daily. Dementia with mild to moderate memory/cognitive impairment: Continue Aricept 5 mg daily and provide safe and supportive care with assistance and redirection as needed. Fall precautions in place. Data and imaging reviewed: -Morning labs reviewed. CBC showing improvement of leukocytosis with WBC count decreasing from 20.29 down to 15.81 this morning and stable normocytic anemia with hemoglobin of 10.0. BMP showing mild prerenal azotemia with BUN of 42.8. Blood glucose 158. Magnesium 2.4. -Vital signs reviewed. Blood pressure 144/93, heart rate 122, respiratory rate 15, temp 97.9 F, and SpO2 of 93% on room air. -Echocardiogram completed showing a mildly impaired EF of 45 to 50%, moderate mitral regurgitation, aortic sclerosis with mild stenosis, moderate pulmonary hypertension, and mild to moderate tricuspid regurgitation. -Repeat morning chest x-ray completed and reviewed showing cardiomegaly with improvement of volume overload reported to be resolving. CODE STATUS: Full code DVT prophylaxis: Kadi Discussed with: Patient, RN, Cardiology [employer]PRETER and called and updated Dr. Quispe on plans for likely discharge tomorrow. Anticipated discharge date: Pending clinical course Anticipated discharge place: Home Patient was seen independently by Nurse Pracitioner. This document was prepared using [employer] dictation software. Please allow for er rors in circle shear operator, while rare they do occur. Evaristo Sandhu NP rendered care for this patient independently, reviewed the findings and plan as documented in the note above and agree with plan. I did not physically speak with or examine the patient on this date. Objective - Vital Signs Vital signs: Vital Signs Temp 97.9 F 09/23/24 07:27 Pulse 122 H 09/23/24 07:27 Resp 15 09/23/24 07:27 BP 144/93 09/23/24 07:27 Pulse Ox 93 L 09/23/24 07:27 FiO2 Intake & Output 09/22/24 09/23/24 09/23/24 18:59 06:59 18:59 Weight 81 kg Other: Voiding Method Incontinent Incontinent - Labs CBC & Chem 7: 09/23/24 03:03 09/23/24 03:03 Labs: Abnormal Lab Results - Last 24 Hours (Table) 09/22/24 09/22/24 Range/Units 03:38 03:38 WBC 20.29 H (4.50-10.00) X 10*3/uL RBC 3.79 L (4.10-5.20) X 10*6/uL Hgb 10.2 L (12.0-15.0) g/dL Hct 32.8 L (37.2-46.3) % MCH 26.9 L (27.0-32.0) pg MCHC 31.1 L (32.0-37.0) g/dL RDW 14.6 H (11.5-14.5) % BUN 28.2 H (9.0-27.0) mg/dL Est GFR (CKD-EPI) 53 L (>=60) BUN/Creatinine Ratio 25.64 H (12.00-20.00) Ratio Glucose 148 H (70-110) mg/dL Alkaline Phosphatase 156 H (41-126) U/L Albumin/Globulin Ratio 1.46 L (1.60-3.17) Ratio Microbiology - Last 24 Hours (Table) 09/20/24 16:35 Blood Culture - Preliminary Blood 09/21/24 19:19 Gram Stain - Preliminary Sputum Sputum Culture - Preliminary
[2024-09-24 08:31] LABS: HCT 34.1 % (37.2-46.3); HGB 10.5 g/dL (12.0-15.0); MCHC 30.8 g/dL (32.0-37.0); MCV 87.7 FL (80.0-97.0); Mean Platelet Volume 12.1 FL (9.5-12.2); NRBC Per 100 WBC 0 X 10*3/uL (0.00-0.01); Platelet Count 215 X 10*3/uL (140-440); RBC 3.89 X 10*6/uL (4.10-5.20); RDW 14.6 % (11.5-14.5); WBC 14.87 X 10*3/uL (4.50-10.00)
[2024-09-24 08:48] LABS: Magnesium 2.3 mg/dL (1.5-2.4)
[2024-09-24 08:51] LABS: Blood Urea Nitrogen 49.4 mg/dL (9.0-27.0); Glucose 130 mg/dL (70-110)
[2024-09-24 08:52] LABS: ALT 42 U/L (8-44); AST 33 U/L (13-35); Albumin 3.7 g/dL (3.8-4.9); Albumin/Globulin Ratio 1.48 Ratio (1.60-3.17); Alkaline Phosphatase 125 U/L (41-126); Calcium 9.5 mg/dL (8.7-10.3); Carbon Dioxide 28.5 mmol/L (21.6-31.8); Chloride 97 mmol/L (96-109); Globulin 2.5 g/dL (1.6-3.3); Potassium 4.9 mmol/L (3.5-5.5); Sodium 138 mmol/L (135-145); Total Bilirubin 0.4 mg/dL (0.3-1.2); Total Protein 6.2 g/dL (6.2-8.2)
[2024-09-24 09:33] VITALS: BP 138/67; PULSE 73; RESP 17; TEMP 99.1
--- NOTE | 2024-09-24 10:02 | P.DS ---
Providers Date of admission: 09/20/24 18:18 Expected date of discharge: 09/24/24 Attending physician: Alex Briones MD Consults: 09/20/24 18:18 Consult Physician Routine Consulting Provider: Chao Berg Consult Reason/Comments: hypoxia Do you want consulting provider notified?: Yes Consult Physician Routine Consulting Provider: Gurpreet Tellez Consult Reason/Comments: heart ailure Do you want consulting provider notified?: Yes Primary care physician: Eldon uQispe MD Hospital Course: Discharge Diagnosis: Acute respiratory failure with hypoxia and hypercarbia, multifactorial COPD with acute exacerbation Acute on chronic diastolic heart failure exacerbation Leukocytosis, believed to be reactive from steroids and improving. Atrial fibrillation with RVR, currently maintaining controlled ventricular rate. Continue Eliquis 5 mg twice daily and metoprolol dose was increased to 25 mg 3 times daily. Telemetry monitoring. Hypertension: Continue daily medication regimen with metoprolol 25 mg 3 times daily and Aldactone 12.5 mg daily. Hyperlipidemia: Continue rosuvastatin 10 mg nightly. Hypothyroidism: Continue levothyroxine 50 mcg daily. History of multiple TIAs and CVA: Continue aspirin 81 mg daily and rosuvastatin 10 mg daily. Dementia with mild to moderate memory/cognitive impairment: Continue Aricept 5 mg daily and provide safe and supportive care with assistance and redirection as needed. Fall precautions in place. Hospital course: Patient is a pleasant 73-year-old female with a past medical history of CAD status post stenting, chronic atrial fibrillation on anticoagulation with Eliquis, hypertension, hyperlipidemia, chronic diastolic heart failure, COPD not home oxygen dependent, pulmonary hypertension, hypothyroidism, multiple TIAs and previous CVA, hypothyroidism, nicotine dependence and dementia with mild to moderate memory impairment (son Elpidio is her legal guardian). Presented to the hospital with a chief complaint of shortness of breath and acute respiratory failure. Discussed with PCP, Dr. Quispe who reports patient's symptoms initially started on 09/16/2024 and she was started on a 5-day course of Zithromax completing last dose 09/20/2024. He reports on Sunday her shortness of breath increased but she was maintaining her SpO2 in the 90s and was started on prednisone. He reports during follow-up phone call and 09/20/2024 he noted patient to have increased conversational dyspnea and sent home care nurse out to patient's home to assess and patient was found to be in respiratory distress with tachypneic respirations and SpO2 in the 60s so EMS was called and patient was transferred to our facility. Upon arrival to our facility patient underwent evaluation in the emergency department. Vital signs upon arrival show blood pressure 118/89, heart rate 42, respiratory rate 24, temp 97.1 F, and SpO2 of 95% on aerosol mask. EKG completed showing atrial fibrillation with a rapid ventricular rate of 107 bpm. Chest x-ray completed showing cardiomegaly and pulmonary vascular congestion with small right pleural effusion consistent with mild CHF exacerbation. Labs completed and reviewed. CBC showing leukocytosis with WBC count of 13.0 and normocytic anemia with hemoglobin of 11.0. BMP showing mild prerenal azotemia with BUN of 20 otherwise normal findings. Blood glucose 101. Lactic acid was 1.7. Magnesium slightly low at 1.7. Liver profile showing elevated alkaline phosphatase of 128. Troponin was negative at less than 0.012 and proBNP was 4170. Patient admitted under our services for acute hypoxic respiratory failure. Pulmonology and cardiology were consulted. Patient underwent successful IV diuresis. She was on [id number] steroids and breathing treatments. Condition significantly improving. Patient cleared from cardiology and pulmonary perspective for discharge. Patient being discharged home on Medrol dose taper, Lasix 40 mg daily, metoprolol was increased to 25 mg 3 times daily and Aldactone was decreased to 12.5 mg daily. Discussed discharge instructions with patient's PCP. Patient medically stable for discharge at this time. To follow-up outpatient with PCP in 1 to 2 days, Physical exam: Vital signs reviewed and stable. General: Nontoxic, no distress and appears stated age. Derm: Skin warm and dry, normal coloration for ethnicity. Head: Atraumatic, normocephalic and symmetric. Eyes: EOM's intact, no lid lag, and anicteric sclera Mouth: no lip lesions, mucus membranes moist Cardiovascular: Irregularly irregular, systolic murmur, positive posterior tibial pulses bilaterally, and cap refill < 2 seconds. Lungs: Respirations even, regular, and unlabored on room air this morning. Lungsdiminished with diffuse expiratory wheezes throughout. Abdominal: soft, nontender to palpation, no guarding, no appreciable organomegaly Ext: Movement and sensation intact. No gross muscle atrophy, no edema, no contractures. 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 Neuro: Speech clear, face symmetrical and CN II-XII grossly intact with no noted focal neuro deficits Psych: Alert and oriented to person, place, time, and situation. Slightly poor historian. Appropriate and pleasant affect. A total of 32 minutes of time were spent preparing this complex discharge summary. Pt was discharged on 09/24/2024 at 9:58 AM Patient was seen independently by Nurse Practitioner. This document was prepared using [employer] dictation software. Please allow for errors in sugar laboratory assistant while rare they do occur. Evaristo Sandhu NP rendered care for this patient independently, reviewed the findings and plan as documented in the note above. I did not physically speak with or examine the patient on this date. Patient Condition at Discharge: Stable Plan - Discharge Summary Discharge Rx Participant: No New Discharge Prescriptions: New Metoprolol Tartrate [Lopressor] 25 mg PO TID 30 Days #90 tab Spironolactone [Aldactone] 12.5 mg PO DAILY 30 Days #30 tab Furosemide [Lasix] 40 mg PO DAILY 30 Days #30 tablet methylPREDNISolone Dose Pack [Medrol Dose Pack] 4 mg PO DIRECTED #21 tab Continue Apixaban [Eliquis] 5 mg PO BID #60 tab Donepezil [Aricept] 5 mg PO HS diphenhydrAMINE [Benadryl] 50 mg PO HS Meloxicam [Mobic] 7.5 mg PO DAILY Carboxymethylcellulos/Glycerin [Refresh Relieva 0.5-0.9% Drop] 1 drop BOTH EYES QID [place]-3 Acid Ethyl Esters [Lovaza] 2 gm PO BID Brexpiprazole [Rexulti] 1 mg PO DAILY Sertraline [Zoloft] 100 mg PO HS Multivitamins, Thera [Multivitamin (formulary)] 1 tab PO DAILY Loperamide HCl [Imodium A-D] 2 - 4 mg PO QID PRN PRN Reason: Loose Stool Nicotine Polacrilex [Nicorette] 4 mg BC 5XD PRN PRN Reason: Nicotine Cravings Zinc Gluconate [Zinc] 50 mg PO DAILY Ascorbic Acid [Vitamin C] 1,000 mg PO BID Budesonide/Formoterol Fumarate [Symbicort 160-4.5 Mcg Inhaler] 2 puff INHALATION RT-BID Acetaminophen Tab [Tylenol] 650 mg PO Q6H PRN PRN Reason: Pain Or Fever > 100.5 Omeprazole 40 mg PO AC-BID Dicyclomine [Bentyl] 10 mg PO TID buPROPion XL [Wellbutrin XL] 300 mg PO DAILY QUEtiapine [SEROquel] 200 mg PO HS Rosuvastatin [Crestor] 10 mg PO HS Ergocalciferol (Vitamin D2) [Drisdol (50,000 Iu)] 1,250 mcg PO MO Biofreeze 10% Cream 1 applic TOPICAL TID PRN PRN Reason: Pain polyethylene glycoL 3350 [Miralax] 17 gm PO DAILY Nystatin 100,000 Unit/gm Powd [Mycostatin Powder] 1 applic TOPICAL TID Levothyroxine Sodium [Synthroid] 50 mcg PO DAILY Albuterol Nebulized [Ventolin Nebulized] 2.5 mg INHALATION RT-QID PRN PRN Reason: Shortness Of Breath Albuterol Inhaler [Ventolin Hfa Inhaler] 2 puff INHALATION RT-Q4H PRN PRN Reason: Shortness Of Breath guaiFENesin SYRUP 100MG/5ML [Robitussin] 400 mg PO DIRECTED PRN PRN Reason: Cough Meclizine HCl 50 mg PO BID PRN MDD 100mg PRN Reason: Vertigo Discontinued Metoprolol Tartrate 25 mg PO BID Azithromycin [Zithromax] See Taper PO DIRECTED Spironolactone [Aldactone] 25 mg PO DAILY Ibuprofen [Motrin] 600 mg PO QID PRN PRN Reason: ARTHRITIS PAIN predniSONE [Deltasone] 20 mg PO DIRECTED Discharge Medication List Apixaban [Eliquis] 5 mg PO BID #60 tab 07/07/20 [Rx] Omeprazole 40 mg PO AC-BID 05/25/21 [History] Dicyclomine [Bentyl] 10 mg PO TID 06/11/21 [History] Donepezil [Aricept] 5 mg PO HS 06/11/21 [History] Acetaminophen Tab [Tylenol] 650 mg PO Q6H PRN 09/20/24 [History] Albuterol Inhaler [Ventolin Hfa Inhaler] 2 puff INHALATION RT-Q4H PRN 09/20/24 [History] Albuterol Nebulized [Ventolin Nebulized] 2.5 mg INHALATION RT-QID PRN 09/20/24 [History] Ascorbic Acid [Vitamin C] 1,000 mg PO BID 09/20/24 [History] Biofreeze 10% Cream 1 applic TOPICAL TID PRN 09/20/24 [History] Brexpiprazole [Rexulti] 1 mg PO DAILY 09/20/24 [History] Budesonide/Formoterol Fumarate [Symbicort 160-4.5 Mcg Inhaler] 2 puff INHALATION RT-BID 09/20/24 [History] Carboxymethylcellulos/Glycerin [Refresh Relieva 0.5-0.9% Drop] 1 drop BOTH EYES QID 09/20/24 [History] Ergocalciferol (Vitamin D2) [Drisdol (50,000 Iu)] 1,250 mcg PO MO 09/20/24 [History] Levothyroxine Sodium [Synthroid] 50 mcg PO DAILY 09/20/24 [History] Loperamide HCl [Imodium A-D] 2 - 4 mg PO QID PRN 09/20/24 [History] Meclizine HCl 50 mg PO BID PRN MDD 100mg 09/20/24 [History] Meloxicam [Mobic] 7.5 mg PO DAILY 09/20/24 [History] Multivitamins, Thera [Multivitamin (formulary)] 1 tab PO DAILY 09/20/24 [History] Nicotine Polacrilex [Nicorette] 4 mg BC 5XD PRN 09/20/24 [History] Nystatin 100,000 Unit/gm Powd [Mycostatin Powder] 1 applic TOPICAL TID 09/20/24 [History] [place]-3 Acid Ethyl Esters [Lovaza] 2 gm PO BID 09/20/24 [History] QUEtiapine [SEROquel] 200 mg PO HS 09/20/24 [History] Rosuvastatin [Crestor] 10 mg PO HS 09/20/24 [History] Sertraline [Zoloft] 100 mg PO HS 09/20/24 [History] Zinc Gluconate [Zinc] 50 mg PO DAILY 09/20/24 [History] buPROPion XL [Wellbutrin XL] 300 mg PO DAILY 09/20/24 [History] diphenhydrAMINE [Benadryl] 50 mg PO HS 09/20/24 [History] guaiFENesin SYRUP 100MG/5ML [Robitussin] 400 mg PO DIRECTED PRN 09/20/24 [History] polyethylene glycoL 3350 [Miralax] 17 gm PO DAILY 09/20/24 [History] Furosemide [Lasix] 40 mg PO DAILY 30 Days #30 tablet 09/24/24 [Rx] Metoprolol Tartrate [Lopressor] 25 mg PO TID 30 Days #90 tab 09/24/24 [Rx] Spironolactone [Aldactone] 12.5 mg PO DAILY 30 Days #30 tab 09/24/24 [Rx] methylPREDNISolone Dose Pack [Medrol Dose Pack] 4 mg PO DIRECTED #21 tab 09/24/24 [Rx] Follow up Appointment(s)/Referral(s): Eldon Quispe MD [Primary Care Provider] - 1-2 Days (office did not answer Please call to schedule appointment) Rafaela Robledo MD [STAFF PHYSICIAN] - 1 Week Blessing Christina MD [STAFF PHYSICIAN] - 1 Week Patient Instructions/Handouts: COPD (Chronic Obstructive Pulmonary Disease) (DC) Activity/Diet/Wound Care/Special Instructions: *[facility] will transport home if before 3pm - [phone] Discharge Disposition: HOME WITH HOME HEALTH SERVICES
--- NOTE | 2024-09-24 12:45 | P.PN ---
Subjective Progress Note Date: 09/24/24 73-year-old female patient, being seen in consultation for shortness of breath. The patient is known to have COPD and she is a chronic smoker continues to smoke around 1 pack of cigarettes a day. She has chronic medical problems including fibromyalgia, dementia, previous CVA/TIA hypertension, hyperlipidemia, irritable bowel disease, and previous history of atrial fibrillation. She is oxygen dependent. She has been utilizing albuterol rescue inhaler only on an as-needed basis. She comes into the emergency department for worsening shortness of breath and chest pain, central, sharp and stabbing. No diaphoresis. No hemoptysis. No pleurisy. Upon arrival to the emergency, the patient was hypoxi c and was placed on 5 L of oxygen by nasal cannula. And the patient was hospitalized for an acute CF exacerbation. Chest x-ray was reviewed and shows COPD along with cardiomegaly and increased pulm vessel markings consistent with a component of CHF and a small right-sided pleural effusion. The white cell count is currently at 18.12 with a hemoglobin 10.3 and a platelet count of 198. Normal coagulation profile. Normal renal function. Normal electrolytes with serum bicarb of 33, proBNP level is 4170 and troponins are negative and LFTs are essentially within normal limits. The patient's EKG is consistent with atrial fibrillation. Noted the patient is already on anticoagulants with Eliquis 5 mg p.o. twice a day. She was started on Symbicort, DuoNebs about treatments [id number] and I started the patient on IV Solu-Medrol today as the patient was found to be actively bronchospastic and wheezy. She is also on Lasix 40 mg IV daily and Aldactone. Previous low-dose CAT scan of the chest from 02/28/2024 showed some nonspecific stable bilateral pulmonary nodules. Those are being monitored. Last echocardiogram was from 2020 and back then the patient had a preserved LV function without any significant valvular abnormalities. She is currently weaned down to 2 L with a pulse ox of 93%. Hemodynamically stable. The patient is seen today September 22, 2024 in follow-up on the regular medical floor. She is currently resting comfortably in bed. Awake and alert in no acute distress. Maintaining O2 saturations in the 90s on room air. She remains on IV diuretics. Completed a course of antibiotics. NicoDerm patch in place. Remains on bronchodilators, steroids. White count 20.2. Hemoglobin 10.2. Platelets 219. Sodium 139. Potassium 4.6. Bicarb 29. BUN 28. Creatinine 1.1. Glucose 148. Procalcitonin 0.63. Blood and sputum pending. The patient is seen today September 23, 2024 in follow-up on the regular medical floor. She is currently resting comfortably in bed. Awake and alert in no acute distress. Maintaining good O2 saturations in the 90s on room air. She is afebrile. Hemodynamically stable. Procalcitonin was 0.63. She completed a course of antibiotics. She is continued on DuoNeb inhalations, Symbicort, Solu- Medrol. Chest x-ray reveals cardiomegaly. Fluid volume overload resolving. White count 15.8. Hemoglobin 10.0. Platelets 189. Sodium 137. Potassium 4.8. Bicarb 27. BUN 43. Creatinine 1.0. Glucose 150. The patient is seen today September 24, 2024 in follow-up on the regular medical floor. She is awake and alert in no acute distress. Resting comfortably in bed. Maintaining O2 saturations in the 90s on room air. She has been afebrile. Hemodynamically stable. Blood and sputum cultures revealed no growth. White count 14.8. Hemoglobin 10.5. Platelets 215. Sodium 138. Potassium 4.9. Bicarb 28. BUN 49. Creatinine 1.3. Glucose 130. She is continued on DuoNeb inhalations, Symbicort, Solu-Medrol. Objective - Vital Signs Vital signs: Vital Signs Temp 99.1 F 09/24/24 08:08 Pulse 73 09/24/24 08:08 Resp 17 09/24/24 08:08 BP 138/67 09/24/24 08:08 Pulse Ox 97 09/24/24 08:08 FiO2 Intake & Output 09/23/24 09/24/24 09/24/24 18:59 06:59 18:59 Intake Total 118 Output Total 1600 Balance -1482 Weight 81 kg 82.4 kg Intake: Oral 118 Output: Urine 1600 Other: Voiding Method External Catheter External Catheter External Catheter # Voids 1 # Bowel Movements 2 - Exam GENERAL EXAM: Alert, 73-year-old female, resting comfortably in bed, on room air, in no apparent distress. HEAD: Normocephalic. EYES: Normal reaction of pupils, equal size. NOSE: Clear with pink turbinates. THROAT: No erythema or exudates. NECK: No masses, no JVD. CHEST: No chest wall deformity. LUNGS: Equal air entry with faint crackles in the bilateral bases. CVS: S1 and S2 normal with no audible murmur, regular rhythm. ABDOMEN: No hepatosplenomegaly, normal bowel sounds, no guarding or rigidity. SPINE: No scoliosis or deformity SKIN: No rashes CENTRAL NERVOUS SYSTEM: No focal deficits, tone is normal in all 4 extremities. EXTREMITIES: There is no peripheral edema. No clubbing, no cyanosis. Peripheral pulses are intact. - Labs CBC & Chem 7: 09/24/24 03:33 09/24/24 03:33 Labs: Abnormal Lab Results - Last 24 Hours (Table) 09/24/24 09/24/24 Range/Units 03:33 03:33 WBC 14.87 H (4.50-10.00) X 10*3/uL RBC 3.89 L (4.10-5.20) X 10*6/uL Hgb 10.5 L (12.0-15.0) g/dL Hct 34.1 L (37.2-46.3) % MCHC 30.8 L (32.0-37.0) g/dL RDW 14.6 H (11.5-14.5) % Anion Gap 12.50 H (4.00-12.00) mmol/L BUN 49.4 H (9.0-27.0) mg/dL Est GFR (CKD-EPI) 43 L (>=60) BUN/Creatinine Ratio 38.00 H (12.00-20.00) Ratio Glucose 130 H (70-110) mg/dL Albumin 3.7 L (3.8-4.9) g/dL Albumin/Globulin Ratio 1.48 L (1.60-3.17) Ratio Microbiology - Last 24 Hours (Table) 09/20/24 16:35 Blood Culture - Preliminary Blood 09/21/24 19:19 Gram Stain - Final Sputum Sputum Culture - Final Assessment and Plan Assessment: Acute exacerbation of COPD along with a component of CHF. She is a chronic smoker and her COPD is exacerbated. At the same time, the chest x-ray showed increased pulm vessel markings and elevated proBNP level on her blood work. There is a component of fluid overload in addition and the patient is currently on IV Lasix. She is on DuoNeb, Symbicort and IV Solu-Medrol. Procalcitonin 0.63. Completed azithromycin COPD, no maintenance inhalers, utilizing albuterol rescue inhaler on an as- needed basis, several times a day Chronic smoker, 1 pack of day Chronic dyspnea secondary to above Chronic atrial fibrillation Atypical chest pain, cardiology on the case Fibromyalgia Dementia Previous history of CVA/TIA Hypertension Hyperlipidemia Peripheral neuropathy IBS Difficulty with mobility and gait and the patient walks with the help of a walker and the patient has chronic neuropathy Acute leukocytosis Plan: The patient was seen and evaluated Llabs and medications reviewed Stable and on room air Completed antibiotics Educated regarding smoking cessation Cleared for discharge Complete a Medrol Dosepak Continue her home pulmonary medications I have personally seen and examined the patient, performed the documentation and the assessment and plan as written. Number of minutes spent on the visit: 10 Dictation was produced using [employer] dictation software. Please excuse any grammatical, word or spelling errors.
[2024-09-25] MEDS ORDERED: methylPREDNISolone 4 MG TAB TAPER PO SCH (09:00)
== END 2024-09-24 12:24 | disposition home health service (06) | DRG 291 ==
LOC: EC 15:48 → 5NMEDONC 18:18 → 4SSUR 20:59
PROVIDERS: ADMIT Internal Medicine; ATTEND Internal Medicine
DX: I11.0 Hypertensive heart disease with heart failure (principal); I50.33 Acute on chronic diastolic (congestive) heart failure; J96.02 Acute respiratory failure with hypercapnia; J96.21 Acute and chronic respiratory failure with hypoxia; J44.1 Chronic obstructive pulmonary disease with (acute) exacerbation; I48.19 Other persistent atrial fibrillation; F03.B3 Unspecified dementia, moderate, with mood disturbance; M79.7 Fibromyalgia; F32.A Depression, unspecified; Z74.09 Other reduced mobility; G62.9 Polyneuropathy, unspecified; E78.5 Hyperlipidemia, unspecified; K58.9 Irritable bowel syndrome, unspecified; F17.210 Nicotine dependence, cigarettes, uncomplicated; I25.2 Old myocardial infarction; E03.9 Hypothyroidism, unspecified; Z86.73 Personal history of transient ischemic attack (TIA), and cerebral infarction without residual deficits; I25.10 Atherosclerotic heart disease of native coronary artery without angina pectoris; Z95.5 Presence of coronary angioplasty implant and graft; Z79.82 Long term (current) use of aspirin; Z88.2 Allergy status to sulfonamides; Z88.1 Allergy status to other antibiotic agents; Z91.040 Latex allergy status; Z88.0 Allergy status to penicillin; D64.9 Anemia, unspecified; Z79.01 Long term (current) use of anticoagulants; Z79.51 Long term (current) use of inhaled steroids; Z79.890 Hormone replacement therapy; Z90.710 Acquired absence of both cervix and uterus
CPT/HCPCS: 36415; 71045; 71046; 80048; 80053; 82607; 82747; 83540; 83550; 83605; 83735; 83880; 84145; 84484; 85025; 85027; 85610; 85730; 87040; 87070; 87205; 93005; 93306; 94640; 94760; 96374; 96375; 99285

== ENCOUNTER 2024-11-03 11:29 | Day surgery (SDC) | payer OTHER ==
[2024-10-31 09:34] VITALS: BMI 31.6
[~2024-11-03 11:29] MED LIST changes: +LIDOCAINE 1% (10MG/ML) FOR IV START INTRADERMA PRN
[2024-11-03] MEDS: IV FLUID CONTINUATION 1,000 ML IV ONE (11:53)
[2024-11-03] MEDS ORDERED: SODIUM CHLORIDE 0.9% 500 ML 500 ML IV SCH (12:00)
[2024-11-03 12:16] VITALS: TEMP 97.3
[2024-11-03 12:50] LABS: African American GFR (CKD) 61 (>60 ml/min/1.73 sqM); Anion Gap 3 mmol/L; Blood Urea Nitrogen 28 mg/dL (7-17); Calcium 9.5 mg/dL (8.4-10.2); Carbon Dioxide 27 mmol/L (22-30); Chloride 109 mmol/L (98-107); Glucose 89 mg/dL (74-99); Non-African American GFR(CKD) 53 (>60 ml/min/1.73 sqM); Sodium 139 mmol/L (137-145)
[2024-11-03 12:55] LABS: Potassium 4.7 mmol/L (3.5-5.1)
[2024-11-03] MEDS: APIXABAN 5 MG TAB PO SCH (13:03)
[2024-11-03] MEDS ORDERED: PROPOFOL 10 MG/ML 20 ML VIAL IV ONE (13:08)
[2024-11-03] MEDS ORDERED: LIDOCAINE 1% INJ 10MG/ML (20 ML MDV) ONE (13:08)
--- NOTE | 2024-11-03 13:40 | P.TEE ---
Date of Procedure: 11/03/24 Description of Procedure(s): Procedure performed: 1. Transesophageal Echocardiogram with bubble study and color/spectral Doppler 2. Synchronized Cardioversion. Indications: Persistent atrial fibrillation with concerns of cardiomyopathy Consent: I have discussed the risks, benefits and alternative therapies for the above-mentioned procedure. The patient has indicated understanding and acceptance of the risks of the procedure. Signed consent was obtained and was placed in the paper chart. Moderate conscious sedation: Moderate conscious sedation was administered by anesthesia, see separate report. Procedural Steps: Timeout was performed in usual fashion. Patient's heart rate, blood pressure, oxygen saturation and ECG were monitored. After achieving appropriate moderate conscious sedation, GAVIN GAVIN probe was advanced without difficulty and without any immediate complications to the esophagus. GAVIN study was performed with color flow doppler, pulsed wave doppler and continuous wave doppler. Agitated saline bubbles were injected to assess for any intra-atrial shunt. The probe was then removed. SYNCHRONIZED CARDIOVERSION After making sure that there is no evidence of intracardiac thrombus, pacer pads were placed and secured on patients chest and back. Synchronized cardioversion was perfromed using 200 J. [1] attempt. Sinus rhythm was confirmed with a 12 lead EKG. Patient tolerated the procedure well. Patient was transferred to the post procedure area in stable and satisfactory condition. Complications: none Blood loss: none FINDINGS Left Atrium: Severely dilated left atrium.. No evidence of mass or thrombus seen. Spontaneous echogenic contrast noticed. Left Atrial Appendage: Omar dilated left radial appendage with no thrombus. Poor velocities. Spontaneous echogenic contrast noticed. Inter atrial septum: No evidence of atrial septal defect. Negative bubble study with no [id number] intracardiac shunting. Left Ventricle: Mild to moderate global LV systolic dysfunction. LVEF 40 to 45%. Right Atrium: Moderate RA dilatation Right Ventricle: Mild RV dilatation with reduced systolic function. Aortic Valve: Trileaflet, calcific sclerotic aortic valve. No significant stenosis. No significant regurgitation. Mitral Valve: Structurally normal valve with functional moderate mitral regurgitation due to annular dilatation from dilated LA. Pulmonic Valve: No significant regurgitation. Tricuspid Valve: Moderate tricuspid regurgitation Ascending aorta, Aortic root and Aortic arch: Mild intimal thickening. Normal size ascending aorta and aortic root. Descending aorta: Mild intimal thickening. CONCLUSION: No evidence of thrombus in left atrium or left atrial bandage. Severe left atrial dilatation and left atrial appendage. Slow velocities with spontaneous echogenic contrast noticed. Moderate global LV systolic dysfunction, LVEF 40 to 45%. Mild RV systolic dysfunction with mild RV dilatation. Moderate functional mitral regurgitation due to dilated annulus Moderate tricuspid regurgitation Successful 1 attempt synchronized cardioversion 200 J. Further recommendations Discharge medication should include Eliquis 5 mg twice daily without any interruptions. Metoprolol succinate 50 mg daily, Farxiga 10 mg daily, losartan 12.5 mg daily, and Aldactone 12.5 mg daily. Rosuvastatin 20 mg daily. 1 dose of IV Lasix 40 mg prior to discharge Follow-up outpatient with Dr. Tellez. He recommend decreasing medication burden. Patient is on multiple psychiatric medications and there is concerns of polypharmacy. Request primary care physician to help out with this. Patient's son was communicated with the findings and explained the further management steps. Please CC this report to Dr. Eldon Tellez MD, RPVI, FACC
[2024-11-03] MEDS: FUROSEMIDE 10 MG/ML 4 ML VIAL IV STA (14:05)
[2024-11-03 14:19] VITALS: RESP 16
[2024-11-03 14:47] VITALS: BP 118/72; PULSE 52
== END 2024-11-03 15:54 | disposition home or self-care (01) ==
LOC: OR 11:29
PROVIDERS: ATTEND Student in an Organized Health Care Education/Training Program
DX: I48.19 Other persistent atrial fibrillation (principal); I13.0 Hypertensive heart and chronic kidney disease with heart failure and stage 1 through stage 4 chronic kidney disease, or unspecified chronic kidney disease; N18.9 Chronic kidney disease, unspecified; I50.22 Chronic systolic (congestive) heart failure; I25.10 Atherosclerotic heart disease of native coronary artery without angina pectoris; I25.2 Old myocardial infarction; Z95.5 Presence of coronary angioplasty implant and graft; E78.5 Hyperlipidemia, unspecified; I08.3 Combined rheumatic disorders of mitral, aortic and tricuspid valves; J44.89 Other specified chronic obstructive pulmonary disease; J96.12 Chronic respiratory failure with hypercapnia; J96.11 Chronic respiratory failure with hypoxia; E03.9 Hypothyroidism, unspecified; M79.7 Fibromyalgia; R73.03 Prediabetes; G62.9 Polyneuropathy, unspecified; K21.9 Gastro-esophageal reflux disease without esophagitis; F41.9 Anxiety disorder, unspecified; F32.A Depression, unspecified; F17.210 Nicotine dependence, cigarettes, uncomplicated; Z79.890 Hormone replacement therapy; Z79.01 Long term (current) use of anticoagulants; Z79.84 Long term (current) use of oral hypoglycemic drugs; Z79.51 Long term (current) use of inhaled steroids; Z79.899 Other long term (current) drug therapy; Z99.3 Dependence on wheelchair; Z86.73 Personal history of transient ischemic attack (TIA), and cerebral infarction without residual deficits; Z82.49 Family history of ischemic heart disease and other diseases of the circulatory system; Z88.1 Allergy status to other antibiotic agents; Z88.0 Allergy status to penicillin; Z88.2 Allergy status to sulfonamides; Z88.8 Allergy status to other drugs, medicaments and biological substances
CPT/HCPCS: 93312; 93320; 93325; 92960; 80048; J1940; J2003; J2704

== ENCOUNTER 2024-12-05 08:17 | Emergency (ER) | payer OTHER ==
[2024-12-05 08:25] VITALS: TEMP 98.1
--- NOTE | 2024-12-05 08:27 | ED ---
General Adult HPI - General Stated complaint: [place] Time Seen by Provider: 12/05/24 08:18 Source: patient, EMS, RN notes reviewed Mode of arrival: EMS Limitations: no limitations - History of Present Illness Initial comments: 73-year-old female presents emergency department via EMS complaint shortness of breath. Patient states he has chronic shortness of breath she states she felt like it worsened overnight. Patient continues to smoke, patient does have COPD, A-fib. Patient denies any chest pain no fevers or chills no productive cough. Patient has had hospitalizations in the past for COPD exacerbations. Patient was given 1 albuterol treatment by EMS which has helped some. Denies of leg pain no leg swelling no abdominal complaints. - Related Data Home Medications Medication Instructions Recorded Confirmed Omeprazole 40 mg PO AC-BID 05/25/21 11/03/24 Albuterol Inhaler [Ventolin Hfa 2 puff INHALATION RT-Q4H PRN 09/20/24 11/03/24 Inhaler] Albuterol Nebulized [Ventolin 2.5 mg INHALATION RT-QID PRN 09/20/24 11/03/24 Nebulized] Brexpiprazole [Rexulti] 1 mg PO DAILY 09/20/24 11/03/24 Budesonide/Formoterol Fumarate 2 puff INHALATION RT-BID 09/20/24 11/03/24 [Symbicort 160-4.5 Mcg Inhaler] Ergocalciferol (Vitamin D2) 1,250 mcg PO MO 09/20/24 11/03/24 [Drisdol (50,000 Iu)] Levothyroxine Sodium [Synthroid] 50 mcg PO DAILY 09/20/24 11/03/24 Nicotine Polacrilex [Nicorette] 4 mg BC 5XD PRN 09/20/24 11/03/24 QUEtiapine [SEROquel] 100 mg PO HS 09/20/24 11/03/24 Sertraline [Zoloft] 100 mg PO HS 09/20/24 11/03/24 buPROPion XL [Wellbutrin XL] 300 mg PO DAILY 09/20/24 11/03/24 polyethylene glycoL 3350 [Miralax] 17 gm PO DAILY 09/20/24 11/03/24 Nystatin 100,000 Unit/gm Powd 1 applic TOPICAL BID 10/31/24 11/03/24 [Mycostatin Powder] Previous Rx's Medication Instructions Recorded Apixaban [Eliquis] 5 mg PO BID 90 Days #180 tab 11/03/24 Dapagliflozin Propanediol [Farxiga] 10 mg PO DAILY 90 Days #90 tab 11/03/24 Losartan [Cozaar] 12.5 mg PO DAILY 90 Days #45 tab 11/03/24 Metoprolol Succinate (ER) [Toprol 50 mg PO DAILY 30 Days #30 tab 11/03/24 XL] Rosuvastatin [Crestor] 20 mg PO HS #0 11/03/24 Spironolactone [Aldactone] 12.5 mg PO DAILY 90 Days #45 tablet 11/03/24 Torsemide [Demadex] 10 mg PO DAILY 30 Days #30 tablet 11/03/24 predniSONE 50 mg PO DAILY #5 tab 12/05/24 Allergies Allergy/AdvReac Type Severity Reaction Status Date / Time atorvastatin [From Lipitor] Allergy Unknown Verified 12/05/24 08:25 cephalexin monohydrate Allergy Rash/Hives Verified 12/05/24 08:25 [From Keflex] ciprofloxacin [From Cipro] Allergy Swelling Verified 12/05/24 08:25 Iodinated Contrast Media Allergy Dyspnea Verified 12/05/24 08:25 latex Allergy Rash/Hives Verified 12/05/24 08:25 oxytetracycline Allergy Rash/Hives Verified 12/05/24 08:25 [From Terramycin] Penicillins Allergy Rash/Hives Verified 12/05/24 08:25 Sulfa (Sulfonamide Allergy Rash/Hives Verified 12/05/24 08:25 Antibiotics) Review of Systems ROS Statement: Those systems with pertinent positive or pertinent negative responses have been documented in the HPI. ROS Other: All systems not noted in ROS Statement are negative. 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 PAIN CLINIC PROCEDURES. Past Anesthesia/Blood Transfusion Reactions: Previous Problems w/ Anesthesia Additional Past Anesthesia/Blood Transfusion Reaction / Comment(s): difficulty waking in past. claustrophobia Past Psychological History: Anxiety, Depression Smoking Status: Current every day smoker Past Alcohol Use History: Rare Past Drug Use History: None Reported - Past Family History Mother Family Medical History: CVA/TIA Additional Family Medical History / Comment(s): Mother at age 73 from a brain stem stroke. Brother(s) Family Medical History: Dementia Additional Family Medical History / Comment(s): Patient has 2 full brothers with no major medical problems. Patient does not have any sisters. Patient has 3 sons with no major medical problems. Son(s) Family Medical History: Cancer Additional Family Medical History / Comment(s): ONE SON IS OBESE. THE OTHER SON HAD LYMPHOMA Father Family Medical History: Congestive Heart Failure (CHF), Myocardial Infarction ([place]) Additional Family Medical History / Comment(s): Father at age 76 from a massive heart attack. General Exam Limitations: no limitations General appearance: alert, in no apparent distress Head exam: Present: atraumatic, normocephalic, normal inspection Eye exam: Present: normal appearance, PERRL, EOMI. Absent: scleral icterus, con junctival injection, periorbital swelling ENT exam: Present: normal exam, mucous membranes moist Neck exam: Present: normal inspection. Absent: tenderness, meningismus, lymphadenopathy Respiratory exam: Present: wheezes. Absent: normal lung sounds bilaterally, respiratory distress, rales, rhonchi, stridor Cardiovascular Exam: Present: irregular rhythm, normal heart sounds. Absent: regular rate, normal rhythm, systolic murmur, diastolic murmur, rubs, gallop, clicks GI/Abdominal exam: Present: soft, normal bowel sounds. Absent: distended, tenderness, guarding, rebound, rigid Course Vital Signs 12/05/24 12/05/24 12/05/24 08:19 08:38 08:46 Temperature 98.1 F Pulse Rate 102 H 88 Respiratory 24 22 Rate Blood Pressure 110/62 O2 Sat by Pulse 99 Oximetry 12/05/24 12/05/24 08:57 09:30 Temperature Pulse Rate 80 90 Respiratory 22 Rate Blood Pressure 117/89 O2 Sat by Pulse 95 Oximetry EKG Findings - EKG Comments: EKG Findings:: EKG performed at 8: 23 A-fib with a rate of 91 QRS 95 QT/QTc 381/430 - EKG Results: EKG: interpreted by [facility] Medical Decision Making - Medical Decision Making Was pt. sent in by a medical professional or institution (, PA, WATER PUMPER, urgent care, hospital, or shelter...) When possible be specific @ -No Did you speak to anyone other than the patient for history (EMS, parent, family, police, friend...)? What history was obtained from this source @ -No Did you review nursing and triage notes (agree or disagree)? Why? @ -I reviewed and agree with nursing and triage notes Were old charts reviewed (outside hosp., previous admission, EMS record, old EKG, old radiological studies, urgent care reports/EKG's, shelter records)? Report findings @ -No old charts were reviewed Differential Diagnosis (chest pain, altered mental status, abdominal pain women, abdominal pain men, vaginal bleeding, weakness, fever, dyspnea, syncope, headache, dizziness, GI bleed, back pain, seizure, CVA, palpatations, mental health, musculoskeletal)? @ -Differential Dyspnea: Coronary syndrome, arrhythmia, tamponade, asthma, COPD, pulmonary embolism, pneumonia, pneumothorax, pulmonary effusion, anaphylaxis, diabetic ketoacidosis, flailed chest, pulmonary contusion, diaphragmatic rupture, anemia, neuromuscular, this is not meant to be an all-inclusive list. EKG interpreted by me (3pts min.). @ -As above X-rays interpreted by me (1pt min.). @ -Chest x-ray shows chronic COPD changes CT interpreted by me (1pt min.). @ -None done U/S interpreted by me (1pt. min.). @ -None done What testing was considered but not performed or refused? (CT, X-rays, U/S, labs)? Why? @ -None What meds were considered but not given or refused? Why? @ -None Did you discuss the management of the patient with other professionals (professionals i.e. , PA, WATER PUMPER, lab, RT, psych nurse, social media manager, technical training manager, teacher, correctional officer lieutenant, major case detective)? Give summary @ -[place] program for follow-up today and further observation Was smoking cessation discussed for >3mins.? @ -I discussed smoking cessation for greater than 3 minutes. The risk of smoking were discussed with the patient including but not limited to risks of cancer, stroke, coronary artery disease and COPD. Also discussed with patient were multiple methods of quitting smoking. Lastly we discussed the financial cost of smoking. Was critical care preformed (if so, how long)? @ -No Were there social determinants of health that impacted care today? How? (Homelessness, low income, unemployed, alcoholism, drug addiction, transportation, low edu. Level, literacy, decrease access to med. care, half-way, rehab)? @ -No Was there de-escalation of care discussed even if they declined (Discuss DNR or withdrawal of care, Hospice)? DNR status @ -No What co-morbidities impacted this encounter? (DM, HTN, Smoking, COPD, CAD, Cancer, CVA, ARF, Chemo, Hep., AIDS, mental health diagnosis, sleep apnea, morbid obesity)? @ -COPD Was patient admitted / discharged? Hospital course, mention meds given and route, prescriptions, significant lab abnormalities, going to OR and other pertinent info. @ -[Discharge patient presented for mild sleep exacerbation proved her Solu- Medrol and treatments. Patient workup otherwise negative patient will be discha rged to [facility] for further management Undiagnosed new problem with uncertain prognosis? @ -No Drug Therapy requiring intensive monitoring for toxicity (Heparin, Nitro, Insulin, Cardizem)? @ -No Were any procedures done? @ -No Diagnosis/symptom? @ -COPD exacerbation Acute, or Chronic, or Acute on Chronic? @ -Acute Uncomplicated (without systemic symptoms) or Complicated (systemic symptoms)? @ -Complicated Side effects of treatment? @ -No Exacerbation, Progression, or Severe Exacerbation? @Exacerbation Poses a threat to life or bodily function? How? (Chest pain, [place], [place], pneumonia, PE, COPD, DKA, ARF, appy, cholecystitis, CVA, Diverticulitis, Homicidal, Suicidal, threat to staff... and all critical care pts) @ -No - Lab Data Result diagrams: 12/05/24 08:32 12/05/24 08:32 Lab Results 12/05/24 12/05/24 12/05/24 Range/Units 08:32 08:32 08:32 WBC 10.4 (3.8-10.6) k/uL RBC 4.56 (3.80-5.40) m/uL Hgb 11.5 (11.4-16.0) gm/dL Hct 36.9 (34.0-46.0) % MCV 81.0 (80.0-100.0) fL MCH 25.2 (25.0-35.0) pg MCHC 31.1 (31.0-37.0) g/dL RDW 15.7 H (11.5-15.5) % Plt Count 196 (150-450) k/uL MPV 8.8 Neutrophils % 75 % Lymphocytes % 17 % Monocytes % 6 % Eosinophils % 1 % Basophils % 0 % Neutrophils # 7.8 H (1.3-7.7) k/uL Lymphocytes # 1.8 (1.0-4.8) k/uL Monocytes # 0.6 (0-1.0) k/uL Eosinophils # 0.1 (0-0.7) k/uL Basophils # 0.0 (0-0.2) k/uL Hypochromasia Marked PT 12.0 (10.0-12.5) sec INR 1.1 (<1.2) APTT 23.2 (22.0-30.0) sec Sodium 138 (137-145) mmol/L Potassium 3.7 (3.5-5.1) mmol/L Chloride 101 (98-107) mmol/L Carbon Dioxide 29 (22-30) mmol/L Anion Gap 8 mmol/L BUN 40 H (7-17) mg/dL Creatinine 1.21 H (0.52-1.04) mg/dL Est GFR (CKD-EPI)AfAm 52 (>60 ml/min/1.73 sqM) Est GFR (CKD-EPI)NonAf 45 (>60 ml/min/1.73 sqM) Glucose 119 H (74-99) mg/dL Calcium 9.2 (8.4-10.2) mg/dL Magnesium 1.8 (1.6-2.3) mg/dL Total Bilirubin 0.5 (0.2-1.3) mg/dL AST 25 (14-36) U/L ALT 17 (4-34) U/L Alkaline Phosphatase 77 (38-126) U/L Troponin I (0.000-0.034) ng/mL NT-Pro-B Natriuret Pep 1420 pg/mL Total Protein 6.0 L (6.3-8.2) g/dL Albumin 3.8 (3.5-5.0) g/dL 12/05/24 Range/Units 08:32 WBC (3.8-10.6) k/uL RBC (3.80-5.40) m/uL Hgb (11.4-16.0) gm/dL Hct (34.0-46.0) % MCV (80.0-100.0) fL MCH (25.0-35.0) pg MCHC (31.0-37.0) g/dL RDW (11.5-15.5) % Plt Count (150-450) k/uL MPV Neutrophils % % Lymphocytes % % Monocytes % % Eosinophils % % Basophils % % Neutrophils # (1.3-7.7) k/uL Lymphocytes # (1.0-4.8) k/uL Monocytes # (0-1.0) k/uL Eosinophils # (0-0.7) k/uL Basophils # (0-0.2) k/uL Hypochromasia PT (10.0-12.5) sec INR (<1.2) APTT (22.0-30.0) sec Sodium (137-145) mmol/L Potassium (3.5-5.1) mmol/L Chloride (98-107) mmol/L Carbon Dioxide (22-30) mmol/L Anion Gap mmol/L BUN (7-17) mg/dL Creatinine (0.52-1.04) mg/dL Est GFR (CKD-EPI)AfAm (>60 ml/min/1.73 sqM) Est GFR (CKD-EPI)NonAf (>60 ml/min/1.73 sqM) Glucose (74-99) mg/dL Calcium (8.4-10.2) mg/dL Magnesium (1.6-2.3) mg/dL Total Bilirubin (0.2-1.3) mg/dL AST (14-36) U/L ALT (4-34) U/L Alkaline Phosphatase (38-126) U/L Troponin I 0.016 (0.000-0.034) ng/mL NT-Pro-B Natriuret Pep pg/mL Total Protein (6.3-8.2) g/dL Albumin (3.5-5.0) g/dL Disposition Clinical Impression: COPD exacerbation Disposition: HOME SELF-CARE Condition: Stable Instructions (If sedation given, give patient instructions): COPD (Chronic Obstructive Pulmonary Disease) (ED) Additional Instructions: Please return to the Emergency Department if symptoms worsen or any other concerns. Prescriptions: predniSONE 50 mg PO DAILY #5 tab Is patient prescribed a controlled substance at d/c from ED?: No Referrals: Eldon Quispe MD [Primary Care Provider] - 1-2 days Time of Disposition: 10:10
[2024-12-05] MEDS: methylPREDNISolone SOD SUCCI 125 MG/2 ML VIAL IV STA (08:37)
[2024-12-05] MEDS: SODIUM CHLORIDE 0.9% 500 ML 500 ML IV STA (08:38)
[2024-12-05 08:41] VITALS: RESP 22
[2024-12-05] MEDS: IPRATROPIUM-ALBUTEROL 3 ML NEB INHALATION STA (08:46)
[2024-12-05 08:48] LABS: Basophils % (A) 0 %; Eosinophils # (A) 0.1 k/uL (0-0.7); Eosinophils % (A) 1 %; HCT 36.9 % (34.0-46.0); HGB 11.5 gm/dL (11.4-16.0); Hypochromasia Marked; Lymphocytes # (A) 1.8 k/uL (1.0-4.8); Lymphocytes % (A) 17 %; MCH 25.2 pg (25.0-35.0); MCHC 31.1 g/dL (31.0-37.0); Mean Platelet Volume 8.8; Monocytes # (A) 0.6 k/uL (0-1.0); Monocytes % (A) 6 %; Neutrophils # (A) 7.8 k/uL (1.3-7.7); Neutrophils % (A) 75 %; Platelet Count 196 k/uL (150-450); RBC 4.56 m/uL (3.80-5.40); RDW 15.7 % (11.5-15.5); WBC 10.4 k/uL (3.8-10.6)
--- NOTE | 2024-12-05 08:52 | XR ---
EXAMINATION TYPE: XR chest 2V DATE OF EXAM: 12/05/2024 8:47 AM COMPARISON: Chest x-ray September 23, 2024 CLINICAL INDICATION: Female, 73 years old with history of difficulty breathing, TECHNIQUE: Frontal and lateral views of the chest are obtained. FINDINGS: There is no focal air space opacity, pleural effusion, or pneumothorax seen. Cardiomegaly is redemonstrated. The osseous structures are intact. IMPRESSION: Cardiomegaly without acute pulmonary process. [facility], , 12/05/2024 8:50 AM
[2024-12-05 09:09] LABS: ALT 17 U/L (4-34); AST 25 U/L (14-36); African American GFR (CKD) 52 (>60 ml/min/1.73 sqM); Albumin 3.8 g/dL (3.5-5.0); Alkaline Phosphatase 77 U/L (38-126); Anion Gap 8 mmol/L; Blood Urea Nitrogen 40 mg/dL (7-17); Calcium 9.2 mg/dL (8.4-10.2); Carbon Dioxide 29 mmol/L (22-30); Chloride 101 mmol/L (98-107); Glucose 119 mg/dL (74-99); Magnesium 1.8 mg/dL (1.6-2.3); Non-African American GFR(CKD) 45 (>60 ml/min/1.73 sqM); Potassium 3.7 mmol/L (3.5-5.1); Sodium 138 mmol/L (137-145); Total Bilirubin 0.5 mg/dL (0.2-1.3)
[2024-12-05 09:18] LABS: NT-Pro-B-Type Natriuretic Pept 1420 pg/mL
[2024-12-05 09:32] VITALS: BP 117/89; PULSE 90
[2024-12-05 09:54] LABS: INR 1.1 (<1.2); Partial Thromboplastin Time 23.2 sec (22.0-30.0)
== END 2024-12-05 10:38 | disposition home or self-care (01) ==
LOC: EC 08:17
DX: J44.1 Chronic obstructive pulmonary disease with (acute) exacerbation (principal); F17.200 Nicotine dependence, unspecified, uncomplicated; Z88.0 Allergy status to penicillin; Z88.1 Allergy status to other antibiotic agents; Z88.2 Allergy status to sulfonamides; Z91.040 Latex allergy status; Z91.041 Radiographic dye allergy status; Z88.8 Allergy status to other drugs, medicaments and biological substances
CPT/HCPCS: 36415; 94640; 93005; 83880; 80053; 83735; 84484; 85025; 85610; 85730; 71046; 99285; 99406; 96374; 96361; J2919

== ENCOUNTER → 2025-01-16 | Outpatient (CLI) | payer OTHER ==
--- NOTE | 2025-01-16 13:32 | MM ---
Reason for Exam: Additional evaluation requested from abnormal screening. Last screening mammogram was performed less than 1 month ago. Patient History: Menarche at age 13. First Full-Term at age 20. Left ovary removed at age 38. Right ovary removed at age 38. Hysterectomy at age 38. Postmenopausal. Patient has history of breast feeding. Risk Values: Selma 5 year model risk: 1.6%. NCI Lifetime model risk: 3.7%. Tissue Density: Right: There are scattered areas of fibroglandular density. Findings: Analyzed By CAD. The centrally located density at a middle depth appears to disperse on the 3-D lateral view. Less defined on the spot 3-D views. Superimposition shadow is suggested. Six-month follow-up recommended. Overall Assessment: Probably benign, BI-RAD 3 Management: Diagnostic Mammogram of the right breast in 6 months. Results were given to the patient verbally at the time of exam. Patient should continue monthly self-breast exams. A clinical breast exam by your physician is recommended on an annual basis. This exam should not preclude additional follow-up of suspicious palpable abnormalities. Note on Selma scores and lifetime risk: 1. A Selma score greater than 3% is considered moderate risk. If this is the case, consider specialist referral to assess eligibility for a risk reducing agent. 2. If overall lifetime risk for the development of breast cancer is 20% or higher, the patient may qualify for future screening with alternating mammogram and breast MRI. [facility], , 01/16/2025 1:28 PM. Electronically signed and approved by: Stew Ford M.D. Radiologist
== END | disposition home or self-care (01) ==
LOC: RADMAMWWP 12:48
PROVIDERS: ATTEND Internal Medicine Hospice and Palliative Medicine
DX: R92.8 Other abnormal and inconclusive findings on diagnostic imaging of breast (principal); R92.323 Mammographic fibroglandular density, bilateral breasts; Z78.0 Asymptomatic menopausal state
CPT/HCPCS: 77061; 77065

== ENCOUNTER → 2025-03-13 | Outpatient (CLI) | payer OTHER ==
--- NOTE | 2025-03-14 15:12 | CTL ---
EXAMINATION TYPE: CT Low Dose Lung DATE OF EXAM: 03/13/2025 11:32 AM COMPARISON: 02/26/2024 CLINICAL INDICATION: Female, 74 years old with history of Z12.2 LUNG CA SCR F17.210 CURRENT SMOKER, c urrent smoker 1 pack a day for 25 years, History of tobacco use. TECHNIQUE: Low dose computed tomography scan was performed through the chest at 1 mm thick sections a nd reconstructed images in multiple planes at 1 mm and [address] DLP: 96.2 mGycm, CT CTDI: 2.6 mGy, Automated exposure control for dose reduction was used. CT DIAGNOSTIC QUALITY: Satisfactory FINDINGS: The heart is upper limit of normal in size with pericardial effusion. Minimal proximal LAD coronary a rtery calcifications. Mild aortic valvular calcifications. Aorta normal caliber with scattered mild atherosclerotic calcifications and bovine configuration to t he aortic arch. Possible moderate stenosis at the origin of the left subclavian artery. Prominent but nonenlarged mediastinal lymph nodes measuring up to 8 mm lower right paratracheal regio n. No thoracic lymphadenopathy by CT size criteria. Moderate diffuse bronchial wall thickening. Moderate emphysematous change. The Scattered calcified granulomas throughout the lungs. Other scattered 4 mm smaller pulmonary nodules are unchanged. Slightly irregular 8 mm pulmonary nodule at the left base, axial image 209 not seen previously. Visualized upper abdomen limited due to large body habitus and lack of IV contrast. Underlying large cyst lateral right kidney measuring 4.9 cm redemonstrated. Bones: Mild degenerative disc disease scattered throughout the thoracic. IMPRESSION: 1. LungRADS Category 4B (very suspicious, >15% chance of malignancy); a new 8 mm left basilar pulmona ry nodule. Other nodules compatible with prior granulomatous disease as well as 4 mm and smaller bila teral nodules remain unchanged. 2. COPD with moderate emphysema. Advise smoking cessation. 3. Incidental: Possible moderate atherosclerotic stenosis at the origin of the left subclavian artery . CT LUNG RAD AND CT CHEST RECOMMENDATION: Lung-Rad 4B or 4X Very Suspicious: Follow-up Chest CT with o r without contrast or PET/CT and/or tissue sampling. PET/CT may be used when there is a > 8 mm solid component. S Modifier (other clinically significant findings): None [facility], Workstation: [email or web address], 03/14/2025 3:10 PM
== END | disposition home or self-care (01) ==
LOC: RADCTMAIN 11:02
PROVIDERS: ATTEND Internal Medicine Hospice and Palliative Medicine
DX: Z12.2 Encounter for screening for malignant neoplasm of respiratory organs (principal); F17.210 Nicotine dependence, cigarettes, uncomplicated; R91.1 Solitary pulmonary nodule; J44.9 Chronic obstructive pulmonary disease, unspecified; J43.9 Emphysema, unspecified; R91.8 Other nonspecific abnormal finding of lung field
CPT/HCPCS: 71271

== ENCOUNTER → 2025-04-17 | Outpatient (CLI) | payer OTHER ==
--- NOTE | 2025-04-18 09:41 | PE ---
EXAMINATION TYPE: PET CT fusion skull to thigh DATE OF EXAM: 04/17/2025 CLINICAL INDICATION:Female, 74 years old with history of R91.1 pulmonary nodule; TECHNIQUE: Following the intravenous administration of 10.06 mCi of F-18 FDG, whole body images are performed from the skull base to the Mid thigh. Images are reviewed on the computer in the coronal, axial, and sagittal planes. Reconstructed rotating images are created on independent workstation an d reviewed on the computer. A non-contrast CT is performed in conjunction with the PET scan. Glucos e level 101 mg/dL CT DLP: 1112 mGycm, Automated exposure control for dose reduction was used. COMPARISON: CT 03/13/2025, PET/CT None, MRI: None FINDINGS: Mediastinal SUV mean is 2.5. Hepatic parenchyma SUV mean is 3.1. SKULL BASE AND NECK: No suspicious radiotracer activity. CHEST, MEDIASTINUM, AND HILAR REGION: * No suspicious radiotracer activity. * Left basilar pulmonary nodules is thought to represent scarring/atelectasis. No suspicious uptake identified on today's exam the morphology has changed. Max SUV 1.5.a ABDOMEN AND PELVIS: No suspicious radiotracer activity. MUSCULOSKELETAL STRUCTURES: No suspicious radiotracer activity. Muscle strain changes throughout the paraspinal musculature. righ t greater than left. OTHER CT: Atherosclerosis at the carotid bifurcations. Aortic valve calcifications are mild to modera te. Right simple appearing renal cyst. No follow-up recommended. Few scattered colonic diverticula. T he uterus is surgically absent. Fat-containing umbilical hernia. Mild emphysema changes of the lungs. Left upper lobe calcified granuloma. IMPRESSION: No suspicious radiotracer activity. Left basilar pulmonary nodules is thought to represent scarring/a telectasis. No suspicious uptake identified on today's exam the morphology has changed. Continue low- dose lung cancer screening. [facility], , 04/18/2025 9:39 AM
== END | disposition home or self-care (01) ==
LOC: RADPETMAIN 09:11
PROVIDERS: ATTEND Nurse Practitioner Family
DX: J44.1 Chronic obstructive pulmonary disease with (acute) exacerbation (principal); F17.210 Nicotine dependence, cigarettes, uncomplicated; R91.8 Other nonspecific abnormal finding of lung field; J98.4 Other disorders of lung
CPT/HCPCS: 78815; A9552

== ENCOUNTER 2025-05-26 11:22 | Emergency (ER) | payer OTHER ==
[2025-05-26 11:37] VITALS: RESP 20; TEMP 97.8
--- NOTE | 2025-05-26 11:57 | CT ---
EXAMINATION TYPE: CT brain daily wo con DATE OF EXAM: 05/26/2025 11:34 AM COMPARISON: None. CLINICAL INDICATION: Female, 74 years old with history of fall on thinners, fall on thinners, pain Technique: Examination of the head was done in axial plane without intravenous contrast. Coronal and sagittal reconstructions performed. CT of the cervical spine was obtained in axial plane without intravenous injection of contrast mater ial. Coronal and sagittal reformatted images were obtained from the axial views for evaluation of f ractures, spinal alignment and canal. CT DLP: 1383.2 mGycm, Automated exposure control for dose reduction was used. FINDINGS: Head: There is no evidence of acute intracranial hemorrhage, acute ischemic changes, mass, mass-effect, or extra-axial fluid collection. There is no effacement of cerebral sulci or basal subarachnoid cister ns. There is no hydrocephalus. There is no midline shift. Benson-white matter distinction is preserv ed. Paranasal sinuses and mastoid air cells are well pneumatized. Orbits and globes are intact. No calvar ial fracture. Cervical spine: Trace grade 1 anterolisthesis C7-T1 and T1-T2 secondary to facet arthropathy particularly at on the l eft. Otherwise, alignment of the cervical spine is normal on coronal and reformatted images. There is no cranial vertebral abnormality. Fracture of the cervical spine is not seen. There is no evidence o f focal disk herniation. There is no central spinal canal stenosis. Moderate emphysematous change in the visualized upper lungs. Sagittal and coronal reformatted images confirm above findings. COMBINED IMPRESSION: 1. No acute intracranial abnormality seen. 2. No acute fracture of the cervical spine. There is facet arthropathy near the cervicothoracic junct ion with degenerative trace grade 1 anterolisthesis of C7-T1 and T1-T2. [facility], , 05/26/2025 11:55 AM
--- NOTE | 2025-05-26 12:20 | ED ---
General Adult HPI - General Chief complaint: Fall Stated complaint: Fall Time Seen by Provider: 05/26/25 11:24 Source: patient, EMS, RN notes reviewed, old records reviewed Mode of arrival: EMS Limitations: no limitations - History of Present Illness Initial comments: 74-year-old female presenting status post fall with head injury. Patient was brought in as a code coag she is on anticoagulation with history of atrial fibrillation. She denied extremity injury. She states she did have some mid back pain with the fall as well. Patient denies abdominal pain. No vomiting. No loss consciousness. - Related Data Home Medications Medication Instructions Recorded Confirmed Albuterol Inhaler [Ventolin Hfa 2 puff INHALATION RT-Q4H PRN 09/20/24 04/10/25 Inhaler] Albuterol Nebulized [Ventolin 2.5 mg INHALATION RT-QID PRN 09/20/24 04/10/25 Nebulized] Brexpiprazole [Rexulti] 1 mg PO DAILY 09/20/24 04/10/25 Budesonide/Formoterol Fumarate 2 puff INHALATION RT-BID 09/20/24 04/10/25 [Symbicort 160-4.5 Mcg Inhaler] Ergocalciferol (Vitamin D2) 1,250 mcg PO MO 09/20/24 04/10/25 [Drisdol (50,000 Iu)] Levothyroxine Sodium [Synthroid] 50 mcg PO DAILY 09/20/24 04/10/25 Nicotine Polacrilex [Nicorette] 4 mg BC 5XD PRN 09/20/24 04/10/25 QUEtiapine [SEROquel] 200 mg PO HS 09/20/24 04/10/25 Sertraline [Zoloft] 200 mg PO HS 09/20/24 04/10/25 buPROPion XL [Wellbutrin XL] 300 mg PO DAILY 09/20/24 04/10/25 polyethylene glycoL 3350 [Miralax] 17 gm PO DAILY 09/20/24 04/10/25 Ascorbic Acid [Vitamin C] 500 mg PO DAILY 04/10/25 04/10/25 Aspirin 81 mg PO DAILY 04/10/25 04/10/25 Biotin 5 mg PO DAILY 04/10/25 04/10/25 Cetirizine HCl [Zyrtec] 10 mg PO DAILY 04/10/25 04/10/25 Donepezil [Aricept] 5 mg PO HS 04/10/25 04/10/25 Famotidine [Pepcid] 20 mg PO BID 04/10/25 04/10/25 Hydrocortisone Cream 1 applic TOPICAL BID PRN 04/10/25 04/10/25 [Hydrocortisone 1% Cream] Loperamide [Imodium] 4 mg PO TID 04/10/25 04/10/25 Melatonin 3 mg PO HS 04/10/25 04/10/25 Meloxicam [Mobic] 7.5 mg PO DAILY 04/10/25 04/10/25 Menthol [Biofreeze] 1 applic TOPICAL TID PRN 04/10/25 04/10/25 Metoprolol Tartrate [Lopressor] 50 mg PO BID 04/10/25 04/10/25 Nicotine 21Mg/24Hr Patch [Habitrol] 1 patch TRANSDERM DAILY 04/10/25 04/10/25 Orphenadrine [Norflex] 100 mg PO BID 04/10/25 04/10/25 Refresh Optive 1 drop BOTH EYES QID PRN 04/10/25 04/10/25 Rosuvastatin [Crestor] 20 mg PO DAILY 04/10/25 04/10/25 Selsun Blue 1 applic TOPICAL DAILY PRN 04/10/25 04/10/25 Triamcinolone 0.025% Cream 1 applic TOPICAL BID PRN 04/10/25 04/10/25 [Kenalog 0.025% Cream] guaiFENesin SYRUP 100MG/5ML 400 mg PO TID PRN 04/10/25 04/10/25 [Robitussin] Previous Rx's Medication Instructions Recorded Apixaban [Eliquis] 5 mg PO BID 90 Days #180 tab 11/03/24 Dapagliflozin Propanediol [Farxiga] 10 mg PO DAILY 90 Days #90 tab 11/03/24 Losartan [Cozaar] 12.5 mg PO DAILY 90 Days #45 tab 11/03/24 Spironolactone [Aldactone] 12.5 mg PO DAILY 90 Days #45 tablet 11/03/24 Cyanocobalamin (Vitamin B-12) 2,000 mcg PO DAILY #30 tab 04/14/25 [Vitamin B-12] Dicyclomine [Bentyl] 10 mg PO TID #30 cap 04/14/25 Nitrofurantoin Monohyd/M-Cryst 100 mg PO BID #2 cap 04/14/25 [Macrobid] predniSONE [Deltasone] 40 mg PO DAILY #1 tab 04/14/25 Allergies Allergy/AdvReac Type Severity Reaction Status Date / Time atorvastatin [From Lipitor] Allergy Unknown Verified 05/26/25 11:38 cephalexin monohydrate Allergy Rash/Hives Verified 05/26/25 11:38 [From Keflex] ciprofloxacin [From Cipro] Allergy Swelling Verified 05/26/25 11:38 Iodinated Contrast Media Allergy Dyspnea Verified 05/26/25 11:38 latex Allergy Rash/Hives Verified 05/26/25 11:38 oxytetracycline Allergy Rash/Hives Verified 05/26/25 11:38 [From Terramycin] Penicillins Allergy Rash/Hives Verified 05/26/25 11:38 Sulfa (Sulfonamide Allergy Rash/Hives Verified 05/26/25 11:38 Antibiotics) Review of Systems ROS Statement: Those systems with pertinent positive or pertinent negative responses have been documented in the HPI. ROS Other: All systems not noted in ROS Statement are negative. 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 PAIN CLINIC PROCEDURES. Past Anesthesia/Blood Transfusion Reactions: Previous Problems w/ Anesthesia Additional Past Anesthesia/Blood Transfusion Reaction / Comment(s): difficulty waking in past. claustrophobia Past Psychological History: Anxiety, Depression Smoking Status: Current every day smoker Past Alcohol Use History: None Reported Past Drug Use History: None Reported - Past Family History Mother Family Medical History: CVA/TIA Additional Family Medical History / Comment(s): Mother at age 73 from a brain stem stroke. Brother(s) Family Medical History: Dementia Additional Family Medical History / Comment(s): Patient has 2 full brothers with no major medical problems. Patient does not have any sisters. Patient has 3 sons with no major medical problems. Son(s) Family Medical History: Cancer Additional Family Medical History / Comment(s): ONE SON IS OBESE. THE OTHER SON HAD LYMPHOMA Father Family Medical History: Congestive Heart Failure ([place]), Myocardial Infarction ([place]) Additional Family Medical History / Comment(s): Father at age 76 from a massive heart attack. General Exam General appearance: alert, in no apparent distress Head exam: Present: atraumatic, normocephalic Eye exam: Present: normal appearance, PERRL ENT exam: Present: normal exam Neck exam: Present: normal inspection, other (C-collar). Absent: tenderness Respiratory exam: Present: normal lung sounds bilaterally. Absent: respiratory distress Cardiovascular Exam: Present: regular rate, irregular rhythm GI/Abdominal exam: Present: soft. Absent: distended, tenderness, guarding Extremities exam: Present: normal inspection, normal capillary refill Neurological exam: Present: alert, oriented X3, CN II-XII intact. Absent: motor sensory deficit Psychiatric exam: Present: normal affect, normal mood Skin exam: Present: warm, dry, intact. Absent: cyanosis, diaphoretic Course Vital Signs 05/26/25 05/26/25 11:33 12:56 Temperature 97.8 F Pulse Rate 77 74 Respiratory 20 20 Rate Blood Pressure 121/66 110/78 O2 Sat by Pulse 97 97 Oximetry Medical Decision Making - Medical Decision Making Was pt. sent in by a medical professional or institution (, PA, PAI GOW MANAGER, urgent care, hospital, or penitentiary...) When possible be specific @ -No Did you speak to anyone other than the patient for history (EMS, parent, family, police, friend...)? What history was obtained from this source @ -No Did you review nursing and triage notes (agree or disagree)? Why? @ -I reviewed and agree with nursing and triage notes Were old charts reviewed (outside hosp., previous admission, EMS record, old EKG, old radiological studies, urgent care reports/EKG's, penitentiary records)? Report findings @ -No old charts were reviewed Differential Diagnosis (chest pain, altered mental status, abdominal pain women, abdominal pain men, vaginal bleeding, weakness, fever, dyspnea, syncope, headache, dizziness, GI bleed, back pain, seizure, CVA, palpatations, mental health, musculoskeletal)? @ -Not applicable EKG interpreted by me (3pts min.). @ -Atrial fibrillation rate of 81, QRS duration 84, QTc [address] segment elevation. X-rays interpreted by me (1pt min.). @X-ray of the chest is negative for traumatic injury, no acute findings CT interpreted by me (1pt min.). @ -[CT brain and cervical spine negative for intracranial hemorrhage, no cervical fracture or subluxation U/S interpreted by me (1pt. min.). @ -None done What testing was considered but not performed or refused? (CT, X-rays, U/S, labs)? Why? @ -None What meds were considered but not given or refused? Why? @ -None Did you discuss the management of the patient with other professionals (professionals i.e. , PA, PAI GOW MANAGER, lab, RT, psych nurse, secondary social studies teacher, check pilot, teacher, air support control officer, patient case manager)? Give summary @ -No Was smoking cessation discussed for >3mins.? @ -No Was critical care preformed (if so, how long)? @ -No Were there social determinants of health that impacted care today? How? (Homelessness, low income, unemployed, alcoholism, drug addiction, transportation, low edu. Level, literacy, decrease access to med. care, assisted, rehab)? @ -No Was there de-escalation of care discussed even if they declined (Discuss DNR or withdrawal of care, Hospice)? DNR status @ -No What co-morbidities impacted this encounter? (DM, HTN, Smoking, COPD, CAD, Cancer, CVA, ARF, Chemo, Hep., AIDS, mental health diagnosis, sleep apnea, morbid obesity)? @ -None Was patient admitted / discharged? Hospital course, mention meds given and route, prescriptions, significant lab abnormalities, going to OR and other pertinent info. @ -74-year-old female presenting status post fall with head injury. No external signs of trauma. I did obtain a CT with out contrast of the brain and cervical spine which was negative for traumatic injury. Chest x-ray was obtained which was negative for acute traumatic injury in the chest. Patient's vital signs are stable. She is in rate controlled A-fib. Stable for discharge at this time. Undiagnosed new problem with uncertain prognosis? @ -No Drug Therapy requiring intensive monitoring for toxicity (Heparin, Nitro, Insulin, Cardizem)? @ -No Were any procedures done? @ -No Diagnosis/symptom? @ -Fall, concussion Acute, or Chronic, or Acute on Chronic? @Acute Uncomplicated (without systemic symptoms) or Complicated (systemic symptoms)? @ -Default Side effects of treatment? @ -No Exacerbation, Progression, or Severe Exacerbation? @ -No Poses a threat to life or bodily function? How? (Chest pain, [place], [place], pneumonia, PE, COPD, DKA, ARF, appy, cholecystitis, CVA, Diverticulitis, Homicidal, Suicidal, threat to staff... and all critical care pts) @ -No Disposition Clinical Impression: Fall, Concussion Disposition: HOME SELF-CARE Condition: Good Instructions (If sedation given, give patient instructions): Fall Prevention for Older Adults (ED), Concussion (ED) Is patient prescribed a controlled substance at d/c from ED?: No Referrals: Tom Katz MD [STAFF PHYSICIAN] - 1-2 days Time of Disposition: 13:56
--- NOTE | 2025-05-26 12:37 | XR ---
EXAMINATION TYPE: XR chest 2V DATE OF EXAM: 05/26/2025 12:28 PM COMPARISON: 04/11/2025 CLINICAL INDICATION: Female, 74 years old with history of fall/pain, , TECHNIQUE: AP and lateral views FINDINGS: Heart upper limits of normal in size. Mild hyperinflation. Mild interstitial prominence have a chroni c appearance. No consolidation or pleural effusion. IMPRESSION: Borderline heart size. Mild hyperinflation may relate to a depth of inspiration or underlying emphyse ma. Clinically correlate. Otherwise, no acute process seen. [facility], Workstation: [id number], 05/26/2025 12:35 PM
[2025-05-26 14:36] VITALS: BP 124/67; PULSE 76
== END 2025-05-26 14:38 | disposition home or self-care (01) ==
LOC: EC 11:22
DX: S06.0XAA Concussion with loss of consciousness status unknown, initial encounter (principal); Z79.01 Long term (current) use of anticoagulants; F17.200 Nicotine dependence, unspecified, uncomplicated; Z88.0 Allergy status to penicillin; Z88.1 Allergy status to other antibiotic agents; Z88.2 Allergy status to sulfonamides; Z91.040 Latex allergy status; Z91.041 Radiographic dye allergy status; Z88.8 Allergy status to other drugs, medicaments and biological substances; W19.XXXA Unspecified fall, initial encounter
CPT/HCPCS: 70450; 71046; 72125; 99284